=== PATIENT | female | born 1955 | race Caucasian/White ===

== ENCOUNTER 2018-09-28 20:27 | Inpatient (IN) | payer MEDICAID, OTHER ==
[~2018-09-28] VITALS: Ht 162.6 cm; Wt 79.4 kg
[~2018-09-28 20:27] MED LIST: ACLI400A2 IH; AZIT250T6 PO; BREO ELLIPTA 11 EACH IH; FEXO1TAB31 PO; PRED20TA PO; UMEC62.5 IH; VENTOLIN HFA18 GM INH
[2018-09-28] MEDS ORDERED: ALBUTEROL SULFATE 2.5 MG/3 ML NEBU. CONT NEB ONE (20:30)
[2018-09-28] MEDS ORDERED: methylPREDNISolone SOD SUCC PF 125 MG/2 ML VIAL. IV ONE (20:30)
[2018-09-28] MEDS ORDERED: IPRATROPIUM BROMIDE 0.5 MG/2.5 ML NEBU. NEB ONE (20:30)
[2018-09-28] MEDS ORDERED: MAGNESIUM SULFATE 2GM 50 ML IV ONE (20:30)
[2018-09-28 20:44] LABS: BASO # 0.1 x10^3/uL (0.0-0.2); BASO % 1 % (0-3); EOS # 0.1 x10^3/uL (0.0-0.7); EOS % 1 % (0-3); HEMATOCRIT 37.7 % (36.0-47.0); HEMOGLOBIN 12.1 g/dL (12.0-15.5); LYMPH # 1.1 x10^3/uL (1.0-4.8); LYMPH % 9 % (24-48); MEAN CORPUSCULAR HEMOGLOBIN 29 pg (25-35); MEAN CORPUSCULAR HGB CONC 32 g/dL (31-37); MEAN CORPUSCULAR VOLUME 90 fL (79-100); MONO # 1.2 x10^3/uL (0.0-1.1); MONO % 10 % (0-9); NEUT # 9.8 x10^3uL (1.8-7.7); NEUT % 79 % (31-73); PLATELET COUNT 317 x10^3/uL (140-400); RED BLOOD COUNT 4.19 x10^6/uL (3.50-5.40); RED CELL DISTRIBUTION WIDTH 13.6 % (11.5-14.5); WHITE BLOOD COUNT 12.4 x10^3/uL (4.0-11.0)
[2018-09-28 20:52] LABS: CALCIUM 9.4 mg/dL (8.5-10.1); CREATININE 0.5 mg/dL (0.6-1.0); GFR 124.2; POTASSIUM 4.6 mmol/L (3.5-5.1)
[2018-09-28 20:58] LABS: ALBUMIN 3.2 g/dL (3.4-5.0); ALBUMIN/GLOBULIN RATIO 0.9 (1.0-1.7); TOTAL BILIRUBIN 0.4 mg/dL (0.2-1.0); TOTAL PROTEIN 6.7 g/dL (6.4-8.2)
[2018-09-28 21:02] LABS: BILIRUBIN,URINE NEGATIVE (NEG); CLARITY,URINE CLEAR; COLOR,URINE YELLOW; NITRITE,URINE NEGATIVE (NEG); PH,URINE 6.5; PROTEIN,URINE NEGATIVE (NEG-TRACE)
[2018-09-28 21:02] LABS: BASE EXCESS ABG 12 mmol/L (-3-3); HCO3 ABG 42 mmol/L (21-28); PO2 ABG 65 mmHg (65-108); SAT O2 ABG 92 % (92-99)
[2018-09-28 21:08] LABS: FIO2 ABG 35; PCO2 ABG 91 mmHg (35-46)
[2018-09-28 21:08] LABS: AMORPHOUS SEDIMENT,UR PRESENT /HPF; BACTERIA,URINE 0 /HPF (0-FEW); WBC,URINE 0 /HPF (0-4)
[2018-09-28] MEDS ORDERED: MORPHINE SULFATE 2 MG/ML VIAL. IV ONE (21:30)
--- NOTE | 2018-09-28 21:42 | RAD ---
PORTABLE CHEST 1V History: Dyspnea Comparison: July 21, 2017 Findings: Single view of the chest is submitted. There is again emphysema. There is no new lobar consolidation, pleural fluid, pneumothorax. Heart size is stable. There is a round opacity of the mid right hemithorax at level of posterior seventh and eighth ribs. Impression: 1. There is no lobar consolidation. There is emphysema. 2. There is a possible nodule of the mid right hemithorax for which nonemergent CT evaluation is recommended although it is possible the findings could be due to rib margin. Electronically signed by: Demetrio Carias MD (09/28/2018 9:40 PM) [facility]
--- NOTE | 2018-09-28 22:11 | PHYS DOC ---
Past Medical History Past Medical History: Asthma, Bronchitis, CHF, COPD Past Surgical History: No Surgical History Additional Past Surgical Histo: UNKNOWN Alcohol Use: None Drug Use: None Adult General Chief Complaint Chief Complaint: DYSPNEA/RESPIRATOY DISTRESS HPI HPI Patient is a 63-year-old female who presents with complaint of shortness breath that reportedly had started earlier this morning. Patient states that symptoms have progressively gotten worse throughout the day. EMS reports that upon their arrival patient had tried to hold herself up to her BiPAP machine at home but they state that it was not moving air. They state that her blood oxygen level was in the upper 70s to low 80s on oxygen. They state that when they put her on CPAP and her percent O2, oxygen saturation came up to the upper 90s. Additional history is limited due to severity of patient's shortness of breath.[] Review of Systems Review of Systems Constitutional: Denies fever or chills [] Respiratory: Complains of cough and shortness of breath [] Cardiovascular: No additional information not addressed in HPI [] GI: Denies abdominal pain, nausea, vomiting or diarrhea [] Integument: Denies rash or skin lesions [] All other systems were reviewed and found to be within normal limits, except as documented in this note. Current Medications Current Medications Current Medications Medications (Trade) Dose Ordered Sig/Mane Start Time Stop Time Status Last Admin Dose Admin Albuterol Sulfate (Ventolin Neb Soln) 10 mg 1X ONCE 09/28/18 20:30 09/28/18 20:40 DC 09/28/18 20:50 10 MG Etomidate (Amidate) 20 mg STK-MED ONCE 09/29/18 00:10 09/29/18 00:11 DC Ipratropium [place] (Atrovent) 0.5 mg 1X ONCE 09/28/18 20:30 09/28/18 20:40 DC 09/28/18 20:50 0.5 MG Magnesium Sulfate 50 ml @ 25 mls/hr 1X ONCE 09/28/18 20:30 09/28/18 22:29 DC 09/28/18 20:43 25 MLS/HR Methylprednisolone Sodium Succinate (SOLU-Medrol 125MG VIAL) 125 mg 1X ONCE 09/28/18 20:30 09/28/18 20:40 DC 09/28/18 20:30 125 MG Morphine Sulfate (Morphine Sulfate) 2 mg 1X ONCE 09/28/18 21:30 09/28/18 21:31 DC 09/29/18 00:52 2 MG Rocuronium [place] (Zemuron) 50 mg STK-MED ONCE 09/29/18 00:10 09/29/18 00:11 DC Allergies Allergies Allergies Coded Allergies Type Severity Reaction Last Updated Verified No Known Drug Allergies 07/11/17 No Physical Exam Physical Exam Constitutional: Well developed, well nourished, in respiratory distress. [] HENT: Normocephalic, atraumatic, bilateral external ears normal, oropharynx moist, no oral exudates, nose normal. [] Eyes: PERRLA, EOMI, conjunctiva normal, no discharge. [] Neck: Normal range of motion, no tenderness, supple, no stridor. [] Cardiovascular: Regular rate and rhythm[] Lungs & Thorax: Lungs demonstrate markedly reduced breath sounds throughout with only fine end expiratory wheezes noted to auscultation [] Abdomen: Bowel sounds normal, soft, no tenderness. [] Skin: Warm, dry, no erythema, no rash. [] Extremities: No tenderness, no cyanosis, no clubbing, ROM intact, no edema. [] Neurologic: Alert and oriented X 3, no focal deficits noted. [] Current Patient Data Vital Signs Vital Signs Date Time Temp Pulse Resp B/P (MAP) Pulse Ox O2 Delivery O2 Flow Rate FiO2 09/29/18 00:05 98 Ventilator 09/29/18 00:00 78 30 129/77 (94) 09/28/18 20:30 97.6 97.6 Lab Values Laboratory Tests Test 09/28/18 20:30 09/28/18 20:47 09/28/18 21:44 White Blood Count 12.4 x10^3/uL (4.0-11.0) H Red Blood Count 4.19 x10^6/uL (3.50-5.40) Hemoglobin 12.1 g/dL (12.0-15.5) Hematocrit 37.7 % (36.0-47.0) Mean Corpuscular Volume 90 fL (79-100) Mean Corpuscular Hemoglobin 29 pg (25-35) Mean Corpuscular Hemoglobin Concent 32 g/dL (31-37) Red Cell Distribution Width 13.6 % (11.5-14.5) Platelet Count 317 x10^3/uL (140-400) Neutrophils (%) (Auto) 79 % (31-73) H Lymphocytes (%) (Auto) 9 % (24-48) L Monocytes (%) (Auto) 10 % (0-9) H Eosinophils (%) (Auto) 1 % (0-3) Basophils (%) (Auto) 1 % (0-3) Neutrophils # (Auto) 9.8 x10^3uL (1.8-7.7) H Lymphocytes # (Auto) 1.1 x10^3/uL (1.0-4.8) Monocytes # (Auto) 1.2 x10^3/uL (0.0-1.1) H Eosinophils # (Auto) 0.1 x10^3/uL (0.0-0.7) Basophils # (Auto) 0.1 x10^3/uL (0.0-0.2) D-Dimer (Bibi) 0.32 ug/mlFEU (0.00-0.50) O2 Saturation 92 % (92-99) 92 % (92-99) Arterial Blood pH 7.28 (7.35-7.45) L 7.28 (7.35-7.45) L Arterial Blood pCO2 at Patient Temp 91 mmHg (35-46) *H 88 mmHg (35-46) *H Arterial Blood pO2 at Patient Temp 65 mmHg (65-108) 65 mmHg (65-108) Arterial Blood HCO3 42 mmol/L (21-28) H 41 mmol/L (21-28) H Arterial Blood Base Excess 12 mmol/L (-3-3) H 10 mmol/L (-3-3) H FiO2 35 35 Sodium Level 144 mmol/L (136-145) Potassium Level 4.6 mmol/L (3.5-5.1) Chloride Level 99 mmol/L (98-107) Carbon Dioxide Level 43 mmol/L (21-32) H Anion Gap 2 (6-14) L Blood Urea Nitrogen 14 mg/dL (7-20) Creatinine 0.5 mg/dL (0.6-1.0) L Estimated GFR (Cockcroft-Gault) 124.2 BUN/Creatinine Ratio 28 (6-20) H Glucose Level 102 mg/dL (70-99) H Calcium Level 9.4 mg/dL (8.5-10.1) Total Bilirubin 0.4 mg/dL (0.2-1.0) Aspartate Amino Transferase (AST) 15 U/L (15-37) Alanine Aminotransferase (ALT) 22 U/L (14-59) Alkaline Phosphatase 54 U/L (46-116) Troponin I Quantitative < 0.017 ng/mL (0.000-0.055) QJ-Zmz-W-Type Natriuretic Peptide 554 pg/mL (0-124) H Total Protein 6.7 g/dL (6.4-8.2) Albumin 3.2 g/dL (3.4-5.0) L Albumin/Globulin Ratio 0.9 (1.0-1.7) L Urine Collection Type U cath Urine Color Yellow Urine Clarity Clear Urine pH 6.5 Urine Specific [place] 1.020 Urine Protein Negative mg/dL (NEG-TRACE) Urine Glucose (UA) Negative mg/dL (NEG) Urine Ketones (Stick) 15 mg/dL (NEG) Urine Blood Moderate (NEG) Urine Nitrite Negative (NEG) Urine Bilirubin Negative (NEG) Urine Urobilinogen Dipstick 1.0 mg/dL (0.2 mg/dL) Urine Leukocyte Esterase Negative (NEG) Urine RBC 11-20 /HPF (0-2) Urine WBC 0 /HPF (0-4) Urine Squamous Epithelial Cells None /LPF Urine Amorphous Sediment Present /HPF Urine Bacteria 0 /HPF (0-FEW) Urine Mucus Slight /LPF Laboratory Tests 09/28/18 20:30 Laboratory Tests 09/28/18 20:30 EKG EKG [] Interpretation Time: EKG demonstrates normal sinus rhythm with rate of 79. Radiology/Procedures Radiology/Procedures [] Impressions: PORTABLE CHEST 1V History: Dyspnea Comparison: July 21, 2017 Findings: Single view of the chest is submitted. There is again emphysema. There is no new lobar consolidation, pleural fluid, pneumothorax. Heart size is stable. There is a round opacity of the mid right hemithorax at level of posterior seventh and eighth ribs. Impression: 1. There is no lobar consolidation. There is emphysema. 2. There is a possible nodule of the mid right hemithorax for which nonemergent CT evaluation is recommended although it is possible the findings could be due to rib margin. Electronically signed by: Demetrio Carias MD (09/28/2018 9:40 PM) [facility] Course & Med Decision Making Course & Med Decision Making Pertinent Labs and Imaging studies reviewed. (See chart for details) Patient moved to room upon arrival was evaluated by your medical staff after which an IV was established and blood work drawn. Patient started on BiPAP and received a 1 hour continuous nebulizer treatment through BiPAP. Patient was also given IV Solu-Medrol as well as 2 g of mag sulfate and morphine. Patient's initial blood gas demonstrated pH of 7.28 and PCO2 of 91.2. Patient was maintained on BiPAP and was rechecked approximately an hour later which demonstrated very little change in the gas. At this point, it was decided that after discussing patient's case with Dr. Garcia, then patient would best be served with intubation. This was discussed with patient and patient in agreement. Endotracheal Intubation by me: Pre assessment performed. See preceding note for details. Pre-oxygenation performed with 100% oxygen RSI: Performed w/o complication or hypoxic events. Medications as ordered. Blade: #3 glide scope ET Tube: 7.5 cm Depth: 24 cm at the lip Intubation confirmed by colorimetric CO2, equal breath sounds, quiet over the stomach. A total of 55 minutes of critical care time was spent on this patient exclusive of separately billable procedures and included direct [id number] time with this patient, ordering and reviewing of laboratory and radiologic studies, discussion of the patient's case with family and with consultants, and finally on documentation of this patient's medical record. Dragon Disclaimer Dragon Disclaimer This electronic medical record was generated, in whole or in part, using a voice recognition dictation system. Departure Departure Impression: Primary Impression: Acute hypercapnic respiratory failure Disposition: ADMITTED INPATIENT Admitting Physician: Juana Woods Condition: IMPROVED Referrals: UNKNOWN PCP NAME (PCP) JERRI EASON Jr. DO September 28, 2018 22:11
[2018-09-28 23:37] LABS: BASE EXCESS ABG 10 mmol/L (-3-3); HCO3 ABG 41 mmol/L (21-28); PO2 ABG 65 mmHg (65-108); SAT O2 ABG 92 % (92-99)
[2018-09-28 23:41] LABS: FIO2 ABG 35; PCO2 ABG 88 mmHg (35-46)
[2018-09-29] VITALS (27 sets, daily range): BP systolic 75–128; BP diastolic 47–72
[2018-09-29] MEDS ORDERED: ROCURONIUM 50 MG/5 ML VIAL. ONE (00:10)
[2018-09-29] MEDS ORDERED: ETOMIDATE 20 MG/10 ML VIAL. IV ONE (00:10)
[2018-09-29] MEDS ORDERED: PROPOFOL 100 ML IV PRN (00:15)
[2018-09-29] MEDS ORDERED: MIDAZOLAM HCL/PF 2 MG/2 ML VIAL. IV PRN (00:15)
--- NOTE | 2018-09-29 00:45 | RAD ---
AP chest. HISTORY: Post intubation AP view was taken of the chest. Endotracheal tube is in good position. There is no pleural effusion. Heart is normal in size. There are interstitial changes which appear chronic possibly underlying fibrosis or chronic interstitial lung disease. No definite confluent pneumonia noted. IMPRESSION: 1. Endotracheal tube in good position.. 2. No other change. Electronically signed by: Ricco Loyd MD (09/29/2018 12:42 AM) [facility]
[2018-09-29] MEDS ORDERED: PROPOFOL 50 ML IV ONE ×2 (00:49→01:00)
[2018-09-29] MEDS: IV NORMAL SALINE 1000ML BAG 1,000 ML IV SCH ×3 (01:57→15:45)
[2018-09-29 02:51] LABS: BASE EXCESS ABG 10 mmol/L (-3-3); HCO3 ABG 38 mmol/L (21-28); PO2 ABG 59 mmHg (65-108); SAT O2 ABG 90 % (92-99)
[2018-09-29 02:52] LABS: FIO2 ABG 30; PCO2 ABG 69 mmHg (35-46)
--- NOTE | 2018-09-29 04:00 | NUR ---
Pt was admitted on vent for resp failure. No family present and patient is sedated on the vent with Diprivan. VSS. Maia and OG both patent.
--- NOTE | 2018-09-29 06:21 | EKG ---
[facility] [address] [place] [address] Test Date: 2018-09-28 Test Time: 20:33:25 Pat Name: BENITO MARQUEZ Department: Room: Gender: F Health Policy Analyst: : 1955 Requested By: JERRI EASON Order Number: [id number] Reading MD: Measurements Intervals [place] Rate: 79 P: 59 RI: 136 QRS: 65 QRSD: 72 T: 72 QT: 368 QTc: 423 Interpretive Statements SINUS RHYTHM OTHERWISE NORMAL ECG RI6.01 Unconfirmed report No previous ECG available for comparison
--- NOTE | 2018-09-29 07:41 | RAD ---
EDDIE, 09/29/2018: HISTORY: Check gastric tube placement A supine view of the upper abdomen demonstrates an NG tube extending into the antral region of the stomach. The gas pattern in the upper abdomen is unremarkable. The lung bases are clear. IMPRESSION: The NG tube extends into the distal aspect of the stomach. Electronically signed by: Mauro Spencer MD (09/29/2018 7:38 AM) [facility]
[2018-09-29 07:58] LABS: BASE EXCESS ABG 13 mmol/L (-3-3); HCO3 ABG 39 mmol/L (21-28); PCO2 ABG 55 mmHg (35-46); PO2 ABG 53 mmHg (65-108); SAT O2 ABG 90 % (92-99)
[2018-09-29 08:04] LABS: FIO2 ABG 30
[2018-09-29] MEDS: IPRATRPIUM/ALBUTEROL 0.5/2.5MG 3 ML NEBU. NEB SCH ×4 (08:30→19:21)
--- NOTE | 2018-09-29 10:52 | PDOC1 ---
History and Physical Date of Admission: Date of Admission DATE: 09/29/18 TIME: 10:49 Chief Complaint: Problems: (1) Acute on chronic respiratory failure (2) Acute hypercapnic respiratory failure (3) COPD (chronic obstructive pulmonary disease) Chief Complain: Shortness of breath hypoxia History of Present Illness: HPI: This is a middle-aged white female who has COPD presented with restrictive failure Her family called ambulance she was hypoxic They placed her on BiPAP that seemed to help but when she got to the ER she had to be intubated She's now on the intensive care unit on the ventilator assist-control/18/400/40% Past Medical/Surgical History: PMH/PSH: Past Medical History: Asthma, Bronchitis, CHF, COPD Past Surgical History: No Surgical History Additional Past Surgical Histo: UNKNOWN A Allergies: Allergies: Coded Allergies: No Known Drug Allergies (Unverified , 07/11/17) Family History: Family History: Hypertension Social History: Social Hisoty: I think she quit smoking or drinking or drugs Current Medications: Current Medications Current Medications Ipratropium [place] (Atrovent) 0.5 mg 1X ONCE NEB Last administered on at 20:50; Start 09/28/18 at 20:30; Stop 09/28/18 at 20:40; Status DC Methylprednisolone Sodium Succinate (SOLU-Medrol 125MG VIAL) 125 mg 1X ONCE IV Last administered on 09/28/18at 20:30; Start 09/28/18 at 20:30; Stop 09/28/18 at 20:40; Status DC Albuterol Sulfate (Ventolin Neb Soln) 10 mg 1X ONCE CONT NEB Last administered on 09/28/18at 20:50; Start 09/28/18 at 20:30; Stop 09/28/18 at 20:40; Status DC Magnesium Sulfate 50 ml @ 25 mls/hr 1X ONCE IV Last administered on 09/28/18at 20:43; Start 09/28/18 at 20:30; Stop 09/28/18 at 22:29; Status DC Morphine Sulfate (Morphine Sulfate) 2 mg 1X ONCE IV Last administered on 09/29/18at 00:52; Start 09/28/18 at 21:30; Stop 09/28/18 at 21:31; Status DC Etomidate (Amidate) 20 mg STK-MED ONCE IV ; Start 09/29/18 at 00:10; Stop 09/29/18 at 00:11; Status DC Rocuronium [place] (Zemuron) 50 mg STK-MED ONCE .ROUTE ; Start 09/29/18 at 00:10; Stop 09/29/18 at 00:11; Status DC Sodium Chloride 1,000 ml @ 125 mls/hr Q8H IV Last administered on 09/29/18at 07:33; Start 09/29/18 at 00:30; Stop 09/30/18 at 00:29 Albuterol/ Ipratropium (Duoneb) 3 ml RTQID NEB ; Start 09/29/18 at 08:00; Stop 09/30/18 at 07:59 Propofol 100 ml @ 0 mls/hr CONT PRN IV SEE PROTOCOL Last administered on 09/29/18at 02:01; Start 09/29/18 at 00:15 Midazolam HCl (Versed) 2 mg PRN Q30MIN PRN IV SEE COMMENTS.; Start 09/29/18 at 00:15 Propofol 50 ml @ 0.885 mls/ hr 1X ONCE IV Last administered on 09/29/18at 00:54; Start 09/29/18 at 01:00; Stop 10/01/18 at 09:06 Propofol 50 ml @ As Directed STK-MED ONCE IV ; Start 09/29/18 at 00:49; Stop 09/29/18 at 00:50; Status DC Active Scripts Active Reported Incruse Ellipta (Umeclidinium [place]) 62.5 Mcg Blst.w.dev 62.5 Mcg IH DAILY Breo Ellipta 100-25 Mcg Inh (Fluticasone/Vilanterol) 1 Each Aer.pow.ba 1 Puff IH DAILY Ventolin Hfa Inhaler (Albuterol Sulfate) 18 Gm Hfa.aer.ad 2 Puff INH Q4HRS Azithromycin Tablet (Azithromycin) 250 Mg Tablet 250 Mg PO DAILY Tudorza Pressair (Aclidinium [place]) 400 Mcg Aer.pow.ba 400 Mcg IH DAILY Prednisone 20 Mg Tablet 1 Tab PO DAILY Rosalia-D 24 Hour Tablet (Fexofenadine/Pseudoephedrine) 1 Each Tab.er.24h 1 Tab PO DAILY ROS: Review of Systems Unable to obtain Physical Exam: Vital Signs: Vital Signs Date Time Temp Pulse Resp B/P (MAP) Pulse Ox O2 Delivery O2 Flow Rate FiO2 09/29/18 08:00 Mechanical Ventilator 09/29/18 07:39 92 09/29/18 07:00 78 18 96/53 (67) 09/29/18 04:00 98.0 98.0 Physcial Exam: GEN.: Intubated and sedated HEENT: Head is normocephalic, atraumatic NECK: Supple, no JVD LUNGS: Course breath sounds HEART: RRR, S1, S2 present. Peripheral pulses intact ABDOMEN: Soft, nontender. Positive bowel sounds no organomegaly EXTREMITIES: Without any cyanosis, clubbing, or edema. Pedal pulses intact NEUROLOGIC: Sedated PSYCHIATRIC: Unable to assess SKIN: No ulcerations or rashes VASCULAR: Good capillary refill Labs: Labs: Laboratory Tests Test 09/28/18 20:30 09/28/18 20:47 09/28/18 21:44 09/29/18 01:56 White Blood Count 12.4 x10^3/uL (4.0-11.0) Red Blood Count 4.19 x10^6/uL (3.50-5.40) Hemoglobin 12.1 g/dL (12.0-15.5) Hematocrit 37.7 % (36.0-47.0) Mean Corpuscular Volume 90 fL (79-100) Mean Corpuscular Hemoglobin 29 pg (25-35) Mean Corpuscular Hemoglobin Concent 32 g/dL (31-37) Red Cell Distribution Width 13.6 % (11.5-14.5) Platelet Count 317 x10^3/uL (140-400) Neutrophils (%) (Auto) 79 % (31-73) Lymphocytes (%) (Auto) 9 % (24-48) Monocytes (%) (Auto) 10 % (0-9) Eosinophils (%) (Auto) 1 % (0-3) Basophils (%) (Auto) 1 % (0-3) Neutrophils # (Auto) 9.8 x10^3uL (1.8-7.7) Lymphocytes # (Auto) 1.1 x10^3/uL (1.0-4.8) Monocytes # (Auto) 1.2 x10^3/uL (0.0-1.1) Eosinophils # (Auto) 0.1 x10^3/uL (0.0-0.7) Basophils # (Auto) 0.1 x10^3/uL (0.0-0.2) D-Dimer (Bibi) 0.32 ug/mlFEU (0.00-0.50) O2 Saturation 92 % (92-99) 92 % (92-99) 90 % (92-99) Arterial Blood pH 7.28 (7.35-7.45) 7.28 (7.35-7.45) 7.36 (7.35-7.45) Arterial Blood pCO2 at Patient Temp 91 mmHg (35-46) 88 mmHg (35-46) 69 mmHg (35-46) Arterial Blood pO2 at Patient Temp 65 mmHg (65-108) 65 mmHg (65-108) 59 mmHg (65-108) Arterial Blood HCO3 42 mmol/L (21-28) 41 mmol/L (21-28) 38 mmol/L (21-28) Arterial Blood Base Excess 12 mmol/L (-3-3) 10 mmol/L (-3-3) 10 mmol/L (-3-3) FiO2 35 35 30 Sodium Level 144 mmol/L (136-145) Potassium Level 4.6 mmol/L (3.5-5.1) Chloride Level 99 mmol/L (98-107) Carbon Dioxide Level 43 mmol/L (21-32) Anion Gap 2 (6-14) Blood Urea Nitrogen 14 mg/dL (7-20) Creatinine 0.5 mg/dL (0.6-1.0) Estimated GFR (Cockcroft-Gault) 124.2 BUN/Creatinine Ratio 28 (6-20) Glucose Level 102 mg/dL (70-99) Calcium Level 9.4 mg/dL (8.5-10.1) Total Bilirubin 0.4 mg/dL (0.2-1.0) Aspartate Amino Transf (AST/SGOT) 15 U/L (15-37) Alanine Aminotransferase (ALT/SGPT) 22 U/L (14-59) Alkaline Phosphatase 54 U/L (46-116) Troponin I Quantitative < 0.017 ng/mL (0.000-0.055) BC-Lgo-H-Type Natriuretic Peptide 554 pg/mL (0-124) Total Protein 6.7 g/dL (6.4-8.2) Albumin 3.2 g/dL (3.4-5.0) Albumin/Globulin Ratio 0.9 (1.0-1.7) Urine Collection Type U cath Urine Color Yellow Urine Clarity Clear Urine pH 6.5 Urine Specific [place] 1.020 Urine Protein Negative mg/dL (NEG-TRACE) Urine Glucose (UA) Negative mg/dL (NEG) Urine Ketones (Stick) 15 mg/dL (NEG) Urine Blood Moderate (NEG) Urine Nitrite Negative (NEG) Urine Bilirubin Negative (NEG) Urine Urobilinogen Dipstick 1.0 mg/dL (0.2 mg/dL) Urine Leukocyte Esterase Negative (NEG) Urine RBC 11-20 /HPF (0-2) Urine WBC 0 /HPF (0-4) Urine Squamous Epithelial Cells None /LPF Urine Amorphous Sediment Present /HPF Urine Bacteria 0 /HPF (0-FEW) Urine Mucus Slight /LPF Test 09/29/18 03:00 09/29/18 06:00 09/29/18 07:50 Troponin I Quantitative < 0.017 ng/mL (0.000-0.055) < 0.017 ng/mL (0.000-0.055) O2 Saturation 90 % (92-99) Arterial Blood pH 7.47 (7.35-7.45) Arterial Blood pCO2 at Patient Temp 55 mmHg (35-46) Arterial Blood pO2 at Patient Temp 53 mmHg (65-108) Arterial Blood HCO3 39 mmol/L (21-28) Arterial Blood Base Excess 13 mmol/L (-3-3) FiO2 30 Laboratory Tests Test 09/28/18 20:30 09/28/18 20:47 09/28/18 21:44 09/29/18 01:56 White Blood Count 12.4 x10^3/uL (4.0-11.0) Red Blood Count 4.19 x10^6/uL (3.50-5.40) Hemoglobin 12.1 g/dL (12.0-15.5) Hematocrit 37.7 % (36.0-47.0) Mean Corpuscular Volume 90 fL (79-100) Mean Corpuscular Hemoglobin 29 pg (25-35) Mean Corpuscular Hemoglobin Concent 32 g/dL (31-37) Red Cell Distribution Width 13.6 % (11.5-14.5) Platelet Count 317 x10^3/uL (140-400) Neutrophils (%) (Auto) 79 % (31-73) Lymphocytes (%) (Auto) 9 % (24-48) Monocytes (%) (Auto) 10 % (0-9) Eosinophils (%) (Auto) 1 % (0-3) Basophils (%) (Auto) 1 % (0-3) Neutrophils # (Auto) 9.8 x10^3uL (1.8-7.7) Lymphocytes # (Auto) 1.1 x10^3/uL (1.0-4.8) Monocytes # (Auto) 1.2 x10^3/uL (0.0-1.1) Eosinophils # (Auto) 0.1 x10^3/uL (0.0-0.7) Basophils # (Auto) 0.1 x10^3/uL (0.0-0.2) D-Dimer (Bibi) 0.32 ug/mlFEU (0.00-0.50) O2 Saturation 92 % (92-99) 92 % (92-99) 90 % (92-99) Arterial Blood pH 7.28 (7.35-7.45) 7.28 (7.35-7.45) 7.36 (7.35-7.45) Arterial Blood pCO2 at Patient Temp 91 mmHg (35-46) 88 mmHg (35-46) 69 mmHg (35-46) Arterial Blood pO2 at Patient Temp 65 mmHg (65-108) 65 mmHg (65-108) 59 mmHg (65-108) Arterial Blood HCO3 42 mmol/L (21-28) 41 mmol/L (21-28) 38 mmol/L (21-28) Arterial Blood Base Excess 12 mmol/L (-3-3) 10 mmol/L (-3-3) 10 mmol/L (-3-3) FiO2 35 35 30 Sodium Level 144 mmol/L (136-145) Potassium Level 4.6 mmol/L (3.5-5.1) Chloride Level 99 mmol/L (98-107) Carbon Dioxide Level 43 mmol/L (21-32) Anion Gap 2 (6-14) Blood Urea Nitrogen 14 mg/dL (7-20) Creatinine 0.5 mg/dL (0.6-1.0) Estimated GFR (Cockcroft-Gault) 124.2 BUN/Creatinine Ratio 28 (6-20) Glucose Level 102 mg/dL (70-99) Calcium Level 9.4 mg/dL (8.5-10.1) Total Bilirubin 0.4 mg/dL (0.2-1.0) Aspartate Amino Transf (AST/SGOT) 15 U/L (15-37) Alanine Aminotransferase (ALT/SGPT) 22 U/L (14-59) Alkaline Phosphatase 54 U/L (46-116) Troponin I Quantitative < 0.017 ng/mL (0.000-0.055) AX-Iqc-X-Type Natriuretic Peptide 554 pg/mL (0-124) Total Protein 6.7 g/dL (6.4-8.2) Albumin 3.2 g/dL (3.4-5.0) Albumin/Globulin Ratio 0.9 (1.0-1.7) Urine Collection Type U cath Urine Color Yellow Urine Clarity Clear Urine pH 6.5 Urine Specific [place] 1.020 Urine Protein Negative mg/dL (NEG-TRACE) Urine Glucose (UA) Negative mg/dL (NEG) Urine Ketones (Stick) 15 mg/dL (NEG) Urine Blood Moderate (NEG) Urine Nitrite Negative (NEG) Urine Bilirubin Negative (NEG) Urine Urobilinogen Dipstick 1.0 mg/dL (0.2 mg/dL) Urine Leukocyte Esterase Negative (NEG) Urine RBC 11-20 /HPF (0-2) Urine WBC 0 /HPF (0-4) Urine Squamous Epithelial Cells None /LPF Urine Amorphous Sediment Present /HPF Urine Bacteria 0 /HPF (0-FEW) Urine Mucus Slight /LPF Test 09/29/18 03:00 09/29/18 06:00 09/29/18 07:50 Troponin I Quantitative < 0.017 ng/mL (0.000-0.055) < 0.017 ng/mL (0.000-0.055) O2 Saturation 90 % (92-99) Arterial Blood pH 7.47 (7.35-7.45) Arterial Blood pCO2 at Patient Temp 55 mmHg (35-46) Arterial Blood pO2 at Patient Temp 53 mmHg (65-108) Arterial Blood HCO3 39 mmol/L (21-28) Arterial Blood Base Excess 13 mmol/L (-3-3) FiO2 30 Images: Images 1. There is no lobar consolidation. There is emphysema. 2. There is a possible nodule of the mid right hemithorax for which nonemergent CT evaluation is recommended although it is possible the findings could be due to rib margin. Assessment/Plan Assessment/Plan Phone and respiratory failure probably multifactorial including pneumonia and COPD perhaps even a little heart failure Plan She's been intubated Consult pulmonary IV Rocephin Duo nebs DVT prophylaxis Full code Frequent labs Home meds if possible We'll consider NG feeds Prognosis guarded Total time 32 minutes JASSON LONG III DO September 29, 2018 10:52
[2018-09-29] MEDS ORDERED: fentaNYL PF VIAL 100 MCG/2 ML VIAL IM ONE (11:45)
[2018-09-29] MEDS: ENOXAPARIN 40 MG/0.4 ML SYRINGE. SQ SCH (11:53)
[2018-09-29] MEDS: FAMOTIDINE 20 MG/2 ML VIAL IVP SCH ×2 (11:53→21:27)
[2018-09-29] MEDS: cefTRIAXone IV Push 1 GM VIAL. IVP SCH (11:55)
[2018-09-29] MEDS: fentaNYL 50MCG/HR PATCH 1 PATCH PATCH.TD72 TD SCH (11:58)
[2018-09-29] MEDS ORDERED: fentaNYL PF VIAL 100 MCG/2 ML VIAL IV ONE (12:00)
--- NOTE | 2018-09-29 13:09 | PDOC ---
PULMONARY PROGRESS NOTES Vitals Vital Signs Date Time Temp Pulse Resp B/P (MAP) Pulse Ox O2 Delivery O2 Flow Rate FiO2 09/29/18 12:00 Mechanical Ventilator 09/29/18 12:00 98.9 80 18 95/57 (70) 96 98.9 General: Alert Lungs: Clear, Other Cardiovascular: S1, S2 Abdomen: Soft Extremities: No Edema Labs Laboratory Tests Test 09/28/18 20:30 09/28/18 20:47 09/28/18 21:44 09/29/18 01:56 White Blood Count 12.4 x10^3/uL (4.0-11.0) Red Blood Count 4.19 x10^6/uL (3.50-5.40) Hemoglobin 12.1 g/dL (12.0-15.5) Hematocrit 37.7 % (36.0-47.0) Mean Corpuscular Volume 90 fL (79-100) Mean Corpuscular Hemoglobin 29 pg (25-35) Mean Corpuscular Hemoglobin Concent 32 g/dL (31-37) Red Cell Distribution Width 13.6 % (11.5-14.5) Platelet Count 317 x10^3/uL (140-400) Neutrophils (%) (Auto) 79 % (31-73) Lymphocytes (%) (Auto) 9 % (24-48) Monocytes (%) (Auto) 10 % (0-9) Eosinophils (%) (Auto) 1 % (0-3) Basophils (%) (Auto) 1 % (0-3) Neutrophils # (Auto) 9.8 x10^3uL (1.8-7.7) Lymphocytes # (Auto) 1.1 x10^3/uL (1.0-4.8) Monocytes # (Auto) 1.2 x10^3/uL (0.0-1.1) Eosinophils # (Auto) 0.1 x10^3/uL (0.0-0.7) Basophils # (Auto) 0.1 x10^3/uL (0.0-0.2) D-Dimer (Bibi) 0.32 ug/mlFEU (0.00-0.50) O2 Saturation 92 % (92-99) 92 % (92-99) 90 % (92-99) Arterial Blood pH 7.28 (7.35-7.45) 7.28 (7.35-7.45) 7.36 (7.35-7.45) Arterial Blood pCO2 at Patient Temp 91 mmHg (35-46) 88 mmHg (35-46) 69 mmHg (35-46) Arterial Blood pO2 at Patient Temp 65 mmHg (65-108) 65 mmHg (65-108) 59 mmHg (65-108) Arterial Blood HCO3 42 mmol/L (21-28) 41 mmol/L (21-28) 38 mmol/L (21-28) Arterial Blood Base Excess 12 mmol/L (-3-3) 10 mmol/L (-3-3) 10 mmol/L (-3-3) FiO2 35 35 30 Sodium Level 144 mmol/L (136-145) Potassium Level 4.6 mmol/L (3.5-5.1) Chloride Level 99 mmol/L (98-107) Carbon Dioxide Level 43 mmol/L (21-32) Anion Gap 2 (6-14) Blood Urea Nitrogen 14 mg/dL (7-20) Creatinine 0.5 mg/dL (0.6-1.0) Estimated GFR (Cockcroft-Gault) 124.2 BUN/Creatinine Ratio 28 (6-20) Glucose Level 102 mg/dL (70-99) Calcium Level 9.4 mg/dL (8.5-10.1) Total Bilirubin 0.4 mg/dL (0.2-1.0) Aspartate Amino Transf (AST/SGOT) 15 U/L (15-37) Alanine Aminotransferase (ALT/SGPT) 22 U/L (14-59) Alkaline Phosphatase 54 U/L (46-116) Troponin I Quantitative < 0.017 ng/mL (0.000-0.055) UN-Opl-B-Type Natriuretic Peptide 554 pg/mL (0-124) Total Protein 6.7 g/dL (6.4-8.2) Albumin 3.2 g/dL (3.4-5.0) Albumin/Globulin Ratio 0.9 (1.0-1.7) Urine Collection Type U cath Urine Color Yellow Urine Clarity Clear Urine pH 6.5 Urine Specific [place] 1.020 Urine Protein Negative mg/dL (NEG-TRACE) Urine Glucose (UA) Negative mg/dL (NEG) Urine Ketones (Stick) 15 mg/dL (NEG) Urine Blood Moderate (NEG) Urine Nitrite Negative (NEG) Urine Bilirubin Negative (NEG) Urine Urobilinogen Dipstick 1.0 mg/dL (0.2 mg/dL) Urine Leukocyte Esterase Negative (NEG) Urine RBC 11-20 /HPF (0-2) Urine WBC 0 /HPF (0-4) Urine Squamous Epithelial Cells None /LPF Urine Amorphous Sediment Present /HPF Urine Bacteria 0 /HPF (0-FEW) Urine Mucus Slight /LPF Test 09/29/18 03:00 09/29/18 06:00 09/29/18 07:50 Troponin I Quantitative < 0.017 ng/mL (0.000-0.055) < 0.017 ng/mL (0.000-0.055) O2 Saturation 90 % (92-99) Arterial Blood pH 7.47 (7.35-7.45) Arterial Blood pCO2 at Patient Temp 55 mmHg (35-46) Arterial Blood pO2 at Patient Temp 53 mmHg (65-108) Arterial Blood HCO3 39 mmol/L (21-28) Arterial Blood Base Excess 13 mmol/L (-3-3) FiO2 30 Laboratory Tests Test 09/28/18 20:30 09/28/18 20:47 09/28/18 21:44 09/29/18 01:56 White Blood Count 12.4 x10^3/uL (4.0-11.0) Red Blood Count 4.19 x10^6/uL (3.50-5.40) Hemoglobin 12.1 g/dL (12.0-15.5) Hematocrit 37.7 % (36.0-47.0) Mean Corpuscular Volume 90 fL (79-100) Mean Corpuscular Hemoglobin 29 pg (25-35) Mean Corpuscular Hemoglobin Concent 32 g/dL (31-37) Red Cell Distribution Width 13.6 % (11.5-14.5) Platelet Count 317 x10^3/uL (140-400) Neutrophils (%) (Auto) 79 % (31-73) Lymphocytes (%) (Auto) 9 % (24-48) Monocytes (%) (Auto) 10 % (0-9) Eosinophils (%) (Auto) 1 % (0-3) Basophils (%) (Auto) 1 % (0-3) Neutrophils # (Auto) 9.8 x10^3uL (1.8-7.7) Lymphocytes # (Auto) 1.1 x10^3/uL (1.0-4.8) Monocytes # (Auto) 1.2 x10^3/uL (0.0-1.1) Eosinophils # (Auto) 0.1 x10^3/uL (0.0-0.7) Basophils # (Auto) 0.1 x10^3/uL (0.0-0.2) D-Dimer (Bibi) 0.32 ug/mlFEU (0.00-0.50) O2 Saturation 92 % (92-99) 92 % (92-99) 90 % (92-99) Arterial Blood pH 7.28 (7.35-7.45) 7.28 (7.35-7.45) 7.36 (7.35-7.45) Arterial Blood pCO2 at Patient Temp 91 mmHg (35-46) 88 mmHg (35-46) 69 mmHg (35-46) Arterial Blood pO2 at Patient Temp 65 mmHg (65-108) 65 mmHg (65-108) 59 mmHg (65-108) Arterial Blood HCO3 42 mmol/L (21-28) 41 mmol/L (21-28) 38 mmol/L (21-28) Arterial Blood Base Excess 12 mmol/L (-3-3) 10 mmol/L (-3-3) 10 mmol/L (-3-3) FiO2 35 35 30 Sodium Level 144 mmol/L (136-145) Potassium Level 4.6 mmol/L (3.5-5.1) Chloride Level 99 mmol/L (98-107) Carbon Dioxide Level 43 mmol/L (21-32) Anion Gap 2 (6-14) Blood Urea Nitrogen 14 mg/dL (7-20) Creatinine 0.5 mg/dL (0.6-1.0) Estimated GFR (Cockcroft-Gault) 124.2 BUN/Creatinine Ratio 28 (6-20) Glucose Level 102 mg/dL (70-99) Calcium Level 9.4 mg/dL (8.5-10.1) Total Bilirubin 0.4 mg/dL (0.2-1.0) Aspartate Amino Transf (AST/SGOT) 15 U/L (15-37) Alanine Aminotransferase (ALT/SGPT) 22 U/L (14-59) Alkaline Phosphatase 54 U/L (46-116) Troponin I Quantitative < 0.017 ng/mL (0.000-0.055) VW-Upz-W-Type Natriuretic Peptide 554 pg/mL (0-124) Total Protein 6.7 g/dL (6.4-8.2) Albumin 3.2 g/dL (3.4-5.0) Albumin/Globulin Ratio 0.9 (1.0-1.7) Urine Collection Type U cath Urine Color Yellow Urine Clarity Clear Urine pH 6.5 Urine Specific [place] 1.020 Urine Protein Negative mg/dL (NEG-TRACE) Urine Glucose (UA) Negative mg/dL (NEG) Urine Ketones (Stick) 15 mg/dL (NEG) Urine Blood Moderate (NEG) Urine Nitrite Negative (NEG) Urine Bilirubin Negative (NEG) Urine Urobilinogen Dipstick 1.0 mg/dL (0.2 mg/dL) Urine Leukocyte Esterase Negative (NEG) Urine RBC 11-20 /HPF (0-2) Urine WBC 0 /HPF (0-4) Urine Squamous Epithelial Cells None /LPF Urine Amorphous Sediment Present /HPF Urine Bacteria 0 /HPF (0-FEW) Urine Mucus Slight /LPF Test 09/29/18 03:00 09/29/18 06:00 09/29/18 07:50 Troponin I Quantitative < 0.017 ng/mL (0.000-0.055) < 0.017 ng/mL (0.000-0.055) O2 Saturation 90 % (92-99) Arterial Blood pH 7.47 (7.35-7.45) Arterial Blood pCO2 at Patient Temp 55 mmHg (35-46) Arterial Blood pO2 at Patient Temp 53 mmHg (65-108) Arterial Blood HCO3 39 mmol/L (21-28) Arterial Blood Base Excess 13 mmol/L (-3-3) FiO2 30 Medications Active Scripts Medications Dose Route/Sig Max Daily Dose Days Date Category Incruse Ellipta (Umeclidinium [place]) 62.5 Mcg Blst.w.dev 62.5 Mcg IH DAILY 07/11/17 Reported Breo Ellipta 100-25 Mcg Inh (Fluticasone/Vilanterol) 1 Each Aer.pow.ba 1 Puff IH DAILY 07/11/17 Reported Ventolin Hfa Inhaler (Albuterol Sulfate) 18 Gm Hfa.aer.ad 2 Puff INH Q4HRS 07/11/17 Reported Azithromycin Tablet (Azithromycin) 250 Mg Tablet 250 Mg PO DAILY 07/11/17 Reported Tudorza Pressair (Aclidinium [place]) 400 Mcg Aer.pow.ba 400 Mcg IH DAILY 07/11/17 Reported Prednisone 20 Mg Tablet 1 Tab PO DAILY 07/11/17 Reported Rosalia-D 24 Hour Tablet (Fexofenadine/Pseudoephedrine) 1 Each Tab.er.24h 1 Tab PO DAILY 07/11/17 Reported Impression . FULL NOTE DICTATED A/C REF FAILURE AECOPD POSSIBLE ILD ANDREW BLACKWOOD MD September 29, 2018 13:09
[2018-09-29] MEDS: DOXYCYCLINE HYCLATE 100 MG in IV DEXTROSE 5% 100ML 100 ML IV SCH (13:19)
[2018-09-29 14:56] LABS: BASE EXCESS ABG 10 mmol/L (-3-3); HCO3 ABG 37 mmol/L (21-28); PO2 ABG 89 mmHg (65-108); SAT O2 ABG 96 % (92-99)
[2018-09-29 15:00] LABS: PCO2 ABG 65 mmHg (35-46)
[2018-09-29 15:01] LABS: FIO2 ABG 40 t tube
[2018-09-29] MEDS ORDERED: IV NORMAL SALINE 500ML BAG 500 ML IV PRN (15:15)
[2018-09-29] MEDS ORDERED: ATROPINE 0.5 MG/5 ML DISP.SYRINGE. IV PRN (15:15)
[2018-09-29] MEDS: DEXMEDETOMIDINE 200 MCG in IV NORMAL SALINE 50ML 48 ML IV PRN (17:25)
[2018-09-29] MEDS: methylPREDNISolone SOD SUCC PF 125 MG/2 ML VIAL. IV SCH (21:27)
--- NOTE | 2018-09-29 22:53 | CONS ---
DATE OF CONSULTATION: 09/29/2018 ATTENDING PHYSICIAN: Dr. Garcia. REASON FOR CONSULTATION: The patient seen in pulmonary consultation at the request of Dr. Garcia for acute on chronic hypercapnic respiratory failure. HISTORY OF PRESENT ILLNESS: The patient is a 63-year-old with COPD who was last admitted a year ago with similar situation. She presented to the Emergency Room and initially placed on BiPAP. She failed. The Emergency physician called me last evening. We discussed the case. It was felt that she would be better managed with intubation. The patient was intubated. Initial arterial blood gas revealed a pH of 7.28, PaCO2 of 91 and PaO2 of 65. Repeat arterial blood gas this morning revealed a pH of 7.47, PaCO2 of 55 and PaO2 of 53 with bicarb of 39. The patient is currently awake, alert, following commands, on mechanical ventilation. She nods yes to wanting the ET tube removed. PAST MEDICAL HISTORY: Otherwise remarkable for chronic hypercapnic respiratory failure and COPD. PAST SURGICAL HISTORY: None. ALLERGIES: None. FAMILY HISTORY: No family history related to the lungs. SOCIAL HISTORY: She still smokes. REVIEW OF SYSTEMS: Unobtainable secondary to the patient being on mechanical ventilation. PHYSICAL EXAMINATION: VITAL SIGNS: Stable. O2 saturation was greater than 92%, currently on AC mode, 40%. HEENT: Eyes, the sclerae were nonicteric. NECK: Jugular venous distention was not elevated. No lymphadenopathy. CHEST: Full expansion. LUNGS: Poor airway flow with no wheezes. CARDIOVASCULAR: Regular rate and rhythm with S1, S2, no S3. ABDOMEN: Soft, nontender and nondistended. EXTREMITIES: No clubbing, cyanosis or pitting edema. NEUROLOGIC: The patient was awake, alert and following commands. A detailed neuro exam was not performed. LABORATORY DATA: Reviewed as indicated above. White count was 12.4. D-dimer was not elevated. Electrolytes were noted. BUN was 14 and creatinine was 0.5. IMPRESSION: 1. Acute on chronic hypoxemic hypercapnic respiratory failure. 2. Acute exacerbation of chronic obstructive pulmonary disease. 3. Abnormal x-ray revealing possible interstitial lung disease. 4. Tobacco dependence. 5. Acute nonspecific bronchitis. PLAN: 1. We will treat the acute nonspecific bronchitis with steroids and antibiotics. 2. CT chest. 3. T-tube trial and possibly extubate today. 4. The patient will be once again instructed on the importance of avoiding tobacco use. 5. DVT and GI prophylaxis. 6. Nebulized treatments. I do appreciate the privilege in sharing in the patient's care. Total cumulative critical care time of 45 minutes. ANDREW BLACKWOOD MD DR: AYDEE/amrik JOB#: [id number] / [id number]
[2018-09-30] VITALS (24 sets, daily range): BP systolic 97–141; BP diastolic 49–71
[2018-09-30] MEDS: DEXMEDETOMIDINE 200 MCG in IV NORMAL SALINE 50ML 48 ML IV PRN (00:44)
[2018-09-30] MEDS: DOXYCYCLINE HYCLATE 100 MG in IV DEXTROSE 5% 100ML 100 ML IV SCH ×2 (02:24→12:39)
[2018-09-30 05:08] LABS: BASO % 0 % (0-3); EOS % 0 % (0-3); HEMATOCRIT 34.4 % (36.0-47.0); LYMPH # 0.6 x10^3/uL (1.0-4.8); LYMPH % 6 % (24-48); MEAN CORPUSCULAR HEMOGLOBIN 29 pg (25-35); MEAN CORPUSCULAR HGB CONC 32 g/dL (31-37); MEAN CORPUSCULAR VOLUME 90 fL (79-100); MONO # 0.1 x10^3/uL (0.0-1.1); MONO % 1 % (0-9); NEUT # 9.7 x10^3uL (1.8-7.7); NEUT % 93 % (31-73); PLATELET COUNT 283 x10^3/uL (140-400); RED BLOOD COUNT 3.82 x10^6/uL (3.50-5.40); WHITE BLOOD COUNT 10.4 x10^3/uL (4.0-11.0)
[2018-09-30 05:59] LABS: ALBUMIN 2.8 g/dL (3.4-5.0); ALBUMIN/GLOBULIN RATIO 0.9 (1.0-1.7); CALCIUM 9.3 mg/dL (8.5-10.1); CREATININE 0.7 mg/dL (0.6-1.0); GFR 84.2; TOTAL BILIRUBIN 0.3 mg/dL (0.2-1.0)
--- NOTE | 2018-09-30 06:13 | PDOC ---
PULMONARY PROGRESS NOTES Subjective on vent, on precedex, mod secretion, follows commands Vitals Vital Signs Date Time Temp Pulse Resp B/P (MAP) Pulse Ox O2 Delivery O2 Flow Rate FiO2 09/30/18 06:00 60 21 109/67 (81) 98 Ventilator 09/30/18 04:00 98.6 98.6 Comments ros as mentioned as above discussed w rn, other sys otherwise neg on vent follows commands General: Alert HEENT: Other (nc at perrrl nose clear orally intubated neck no lad, no thyromegaly) Lungs: Other Cardiovascular: S1, S2 Abdomen: Soft, Non-tender, Other (no mass) Neuro Exam: Alert Extremities: No Edema Skin: Warm Labs Laboratory Tests Test 09/28/18 20:30 09/28/18 20:47 09/28/18 21:44 09/29/18 01:56 White Blood Count 12.4 x10^3/uL (4.0-11.0) Red Blood Count 4.19 x10^6/uL (3.50-5.40) Hemoglobin 12.1 g/dL (12.0-15.5) Hematocrit 37.7 % (36.0-47.0) Mean Corpuscular Volume 90 fL (79-100) Mean Corpuscular Hemoglobin 29 pg (25-35) Mean Corpuscular Hemoglobin Concent 32 g/dL (31-37) Red Cell Distribution Width 13.6 % (11.5-14.5) Platelet Count 317 x10^3/uL (140-400) Neutrophils (%) (Auto) 79 % (31-73) Lymphocytes (%) (Auto) 9 % (24-48) Monocytes (%) (Auto) 10 % (0-9) Eosinophils (%) (Auto) 1 % (0-3) Basophils (%) (Auto) 1 % (0-3) Neutrophils # (Auto) 9.8 x10^3uL (1.8-7.7) Lymphocytes # (Auto) 1.1 x10^3/uL (1.0-4.8) Monocytes # (Auto) 1.2 x10^3/uL (0.0-1.1) Eosinophils # (Auto) 0.1 x10^3/uL (0.0-0.7) Basophils # (Auto) 0.1 x10^3/uL (0.0-0.2) D-Dimer (Bibi) 0.32 ug/mlFEU (0.00-0.50) O2 Saturation 92 % (92-99) 92 % (92-99) 90 % (92-99) Arterial Blood pH 7.28 (7.35-7.45) 7.28 (7.35-7.45) 7.36 (7.35-7.45) Arterial Blood pCO2 at Patient Temp 91 mmHg (35-46) 88 mmHg (35-46) 69 mmHg (35-46) Arterial Blood pO2 at Patient Temp 65 mmHg (65-108) 65 mmHg (65-108) 59 mmHg (65-108) Arterial Blood HCO3 42 mmol/L (21-28) 41 mmol/L (21-28) 38 mmol/L (21-28) Arterial Blood Base Excess 12 mmol/L (-3-3) 10 mmol/L (-3-3) 10 mmol/L (-3-3) FiO2 35 35 30 Sodium Level 144 mmol/L (136-145) Potassium Level 4.6 mmol/L (3.5-5.1) Chloride Level 99 mmol/L (98-107) Carbon Dioxide Level 43 mmol/L (21-32) Anion Gap 2 (6-14) Blood Urea Nitrogen 14 mg/dL (7-20) Creatinine 0.5 mg/dL (0.6-1.0) Estimated GFR (Cockcroft-Gault) 124.2 BUN/Creatinine Ratio 28 (6-20) Glucose Level 102 mg/dL (70-99) Calcium Level 9.4 mg/dL (8.5-10.1) Total Bilirubin 0.4 mg/dL (0.2-1.0) Aspartate Amino Transf (AST/SGOT) 15 U/L (15-37) Alanine Aminotransferase (ALT/SGPT) 22 U/L (14-59) Alkaline Phosphatase 54 U/L (46-116) Troponin I Quantitative < 0.017 ng/mL (0.000-0.055) PS-Xfl-D-Type Natriuretic Peptide 554 pg/mL (0-124) Total Protein 6.7 g/dL (6.4-8.2) Albumin 3.2 g/dL (3.4-5.0) Albumin/Globulin Ratio 0.9 (1.0-1.7) Urine Collection Type U cath Urine Color Yellow Urine Clarity Clear Urine pH 6.5 Urine Specific [place] 1.020 Urine Protein Negative mg/dL (NEG-TRACE) Urine Glucose (UA) Negative mg/dL (NEG) Urine Ketones (Stick) 15 mg/dL (NEG) Urine Blood Moderate (NEG) Urine Nitrite Negative (NEG) Urine Bilirubin Negative (NEG) Urine Urobilinogen Dipstick 1.0 mg/dL (0.2 mg/dL) Urine Leukocyte Esterase Negative (NEG) Urine RBC 11-20 /HPF (0-2) Urine WBC 0 /HPF (0-4) Urine Squamous Epithelial Cells None /LPF Urine Amorphous Sediment Present /HPF Urine Bacteria 0 /HPF (0-FEW) Urine Mucus Slight /LPF Test 09/29/18 03:00 09/29/18 06:00 09/29/18 07:50 09/29/18 14:50 Troponin I Quantitative < 0.017 ng/mL (0.000-0.055) < 0.017 ng/mL (0.000-0.055) O2 Saturation 90 % (92-99) 96 % (92-99) Arterial Blood pH 7.47 (7.35-7.45) 7.38 (7.35-7.45) Arterial Blood pCO2 at Patient Temp 55 mmHg (35-46) 65 mmHg (35-46) Arterial Blood pO2 at Patient Temp 53 mmHg (65-108) 89 mmHg (65-108) Arterial Blood HCO3 39 mmol/L (21-28) 37 mmol/L (21-28) Arterial Blood Base Excess 13 mmol/L (-3-3) 10 mmol/L (-3-3) FiO2 30 40 t tube Test 09/30/18 04:30 White Blood Count 10.4 x10^3/uL (4.0-11.0) Red Blood Count 3.82 x10^6/uL (3.50-5.40) Hemoglobin 11.0 g/dL (12.0-15.5) Hematocrit 34.4 % (36.0-47.0) Mean Corpuscular Volume 90 fL (79-100) Mean Corpuscular Hemoglobin 29 pg (25-35) Mean Corpuscular Hemoglobin Concent 32 g/dL (31-37) Red Cell Distribution Width 14.0 % (11.5-14.5) Platelet Count 283 x10^3/uL (140-400) Neutrophils (%) (Auto) 93 % (31-73) Lymphocytes (%) (Auto) 6 % (24-48) Monocytes (%) (Auto) 1 % (0-9) Eosinophils (%) (Auto) 0 % (0-3) Basophils (%) (Auto) 0 % (0-3) Neutrophils # (Auto) 9.7 x10^3uL (1.8-7.7) Lymphocytes # (Auto) 0.6 x10^3/uL (1.0-4.8) Monocytes # (Auto) 0.1 x10^3/uL (0.0-1.1) Eosinophils # (Auto) 0.0 x10^3/uL (0.0-0.7) Basophils # (Auto) 0.0 x10^3/uL (0.0-0.2) Sodium Level 143 mmol/L (136-145) Potassium Level 4.0 mmol/L (3.5-5.1) Chloride Level 104 mmol/L (98-107) Carbon Dioxide Level 34 mmol/L (21-32) Anion Gap 5 (6-14) Blood Urea Nitrogen 20 mg/dL (7-20) Creatinine 0.7 mg/dL (0.6-1.0) Estimated GFR (Cockcroft-Gault) 84.2 BUN/Creatinine Ratio 29 (6-20) Glucose Level 139 mg/dL (70-99) Calcium Level 9.3 mg/dL (8.5-10.1) Total Bilirubin 0.3 mg/dL (0.2-1.0) Aspartate Amino Transf (AST/SGOT) 13 U/L (15-37) Alanine Aminotransferase (ALT/SGPT) 16 U/L (14-59) Alkaline Phosphatase 45 U/L (46-116) Total Protein 6.0 g/dL (6.4-8.2) Albumin 2.8 g/dL (3.4-5.0) Albumin/Globulin Ratio 0.9 (1.0-1.7) Laboratory Tests Test 09/29/18 07:50 09/29/18 14:50 09/30/18 04:30 O2 Saturation 90 % (92-99) 96 % (92-99) Arterial Blood pH 7.47 (7.35-7.45) 7.38 (7.35-7.45) Arterial Blood pCO2 at Patient Temp 55 mmHg (35-46) 65 mmHg (35-46) Arterial Blood pO2 at Patient Temp 53 mmHg (65-108) 89 mmHg (65-108) Arterial Blood HCO3 39 mmol/L (21-28) 37 mmol/L (21-28) Arterial Blood Base Excess 13 mmol/L (-3-3) 10 mmol/L (-3-3) FiO2 30 40 t tube White Blood Count 10.4 x10^3/uL (4.0-11.0) Red Blood Count 3.82 x10^6/uL (3.50-5.40) Hemoglobin 11.0 g/dL (12.0-15.5) Hematocrit 34.4 % (36.0-47.0) Mean Corpuscular Volume 90 fL (79-100) Mean Corpuscular Hemoglobin 29 pg (25-35) Mean Corpuscular Hemoglobin Concent 32 g/dL (31-37) Red Cell Distribution Width 14.0 % (11.5-14.5) Platelet Count 283 x10^3/uL (140-400) Neutrophils (%) (Auto) 93 % (31-73) Lymphocytes (%) (Auto) 6 % (24-48) Monocytes (%) (Auto) 1 % (0-9) Eosinophils (%) (Auto) 0 % (0-3) Basophils (%) (Auto) 0 % (0-3) Neutrophils # (Auto) 9.7 x10^3uL (1.8-7.7) Lymphocytes # (Auto) 0.6 x10^3/uL (1.0-4.8) Monocytes # (Auto) 0.1 x10^3/uL (0.0-1.1) Eosinophils # (Auto) 0.0 x10^3/uL (0.0-0.7) Basophils # (Auto) 0.0 x10^3/uL (0.0-0.2) Sodium Level 143 mmol/L (136-145) Potassium Level 4.0 mmol/L (3.5-5.1) Chloride Level 104 mmol/L (98-107) Carbon Dioxide Level 34 mmol/L (21-32) Anion Gap 5 (6-14) Blood Urea Nitrogen 20 mg/dL (7-20) Creatinine 0.7 mg/dL (0.6-1.0) Estimated GFR (Cockcroft-Gault) 84.2 BUN/Creatinine Ratio 29 (6-20) Glucose Level 139 mg/dL (70-99) Calcium Level 9.3 mg/dL (8.5-10.1) Total Bilirubin 0.3 mg/dL (0.2-1.0) Aspartate Amino Transf (AST/SGOT) 13 U/L (15-37) Alanine Aminotransferase (ALT/SGPT) 16 U/L (14-59) Alkaline Phosphatase 45 U/L (46-116) Total Protein 6.0 g/dL (6.4-8.2) Albumin 2.8 g/dL (3.4-5.0) Albumin/Globulin Ratio 0.9 (1.0-1.7) Medications Active Scripts Medications Dose Route/Sig Max Daily Dose Days Date Category Incruse Ellipta (Umeclidinium [place]) 62.5 Mcg Blst.w.dev 62.5 Mcg IH DAILY 07/11/17 Reported Breo Ellipta 100-25 Mcg Inh (Fluticasone/Vilanterol) 1 Each Aer.pow.ba 1 Puff IH DAILY 07/11/17 Reported Ventolin Hfa Inhaler (Albuterol Sulfate) 18 Gm Hfa.aer.ad 2 Puff INH Q4HRS 07/11/17 Reported Azithromycin Tablet (Azithromycin) 250 Mg Tablet 250 Mg PO DAILY 07/11/17 Reported Tudorza Pressair (Aclidinium [place]) 400 Mcg Aer.pow.ba 400 Mcg IH DAILY 07/11/17 Reported Prednisone 20 Mg Tablet 1 Tab PO DAILY 07/11/17 Reported Rosalia-D 24 Hour Tablet (Fexofenadine/Pseudoephedrine) 1 Each Tab.er.24h 1 Tab PO DAILY 07/11/17 Reported Comments cxr reviewed ett ok increased inter marking Impression . IMPRESSION: 1. Acute on chronic hypoxemic hypercapnic respiratory failure. 2. Acute exacerbation of chronic obstructive pulmonary disease. 3. Abnormal x-ray 4. Tobacco dependence. 5. Acute nonspecific bronchitis. Plan . PLAN: 1. We will treat the acute nonspecific bronchitis with steroids and antibiotics. 2. CT chest. 3. cont vent support, setting reviewed, will do sbt, evaluated during sbt, good vt, abg good, will extubate monitor resp status in icu 4. The patient will be once again instructed on the importance of avoiding tobacco use. 5. DVT and GI prophylaxis. 6. Nebulized treatments. discussed w rn, rt, pt YUMIKO LIM MD September 30, 2018 06:13
[2018-09-30] MEDS: IPRATRPIUM/ALBUTEROL 0.5/2.5MG 3 ML NEBU. NEB SCH ×4 (09:00→19:44)
[2018-09-30 09:43] LABS: BASE EXCESS ABG 5 mmol/L (-3-3); HCO3 ABG 32 mmol/L (21-28); PCO2 ABG 59 mmHg (35-46); PO2 ABG 90 mmHg (65-108); SAT O2 ABG 96 % (92-99)
[2018-09-30 09:47] LABS: FIO2 ABG 40
[2018-09-30] MEDS: FAMOTIDINE 20 MG/2 ML VIAL IVP SCH ×2 (10:30→20:50)
[2018-09-30] MEDS: methylPREDNISolone SOD SUCC PF 125 MG/2 ML VIAL. IV SCH ×2 (10:30→20:50)
[2018-09-30 10:38] LABS: % BANDS 4 % (0-9); % LYMPHS 6 % (24-48); % MONOS 1 % (0-10); % SEGS 89 % (35-66)
[2018-09-30 10:39] LABS: PLT ESTIMATE ADEQUATE (ADEQUATE)
--- NOTE | 2018-09-30 11:17 | PDOC ---
[employer] PROGRESS NOTE Chief Complaint Chief Complaint Acute on chronic hypoxemic hypercapnic respiratory failure. Acute exacerbation of chronic obstructive pulmonary disease. Abnormal x-ray Tobacco dependence. Acute nonspecific bronchitis. History of Present Illness History of Present Illness Patient seen and examined in the intensive care unit She just got extubated 5 minutes ago Her voice is hoarse She is still short of breath but maintaining her oxygen saturation with a nasal cannula I discussed the case with the nurse and respiratory therapist and Dr. Liu Vitals Vitals Vital Signs Date Time Temp Pulse Resp B/P (MAP) Pulse Ox O2 Delivery O2 Flow Rate FiO2 09/30/18 10:00 67 21 115/69 (84) 93 Nasal Cannula 3.0 09/30/18 07:00 97.5 97.5 Physical Exam General: Alert, Oriented X3 Heart: Regular rate, Normal S1 Lungs: Wheezing, Crackles, Other Abdomen: Normal bowel sounds, Soft Extremities: No clubbing, No cyanosis Skin: No rashes, No breakdown Labs Labs: Laboratory Tests Test 09/29/18 14:50 09/30/18 04:30 09/30/18 09:40 O2 Saturation 96 % (92-99) 96 % (92-99) Arterial Blood pH 7.38 (7.35-7.45) 7.35 (7.35-7.45) Arterial Blood pCO2 at Patient Temp 65 mmHg (35-46) 59 mmHg (35-46) Arterial Blood pO2 at Patient Temp 89 mmHg (65-108) 90 mmHg (65-108) Arterial Blood HCO3 37 mmol/L (21-28) 32 mmol/L (21-28) Arterial Blood Base Excess 10 mmol/L (-3-3) 5 mmol/L (-3-3) FiO2 40 t tube 40 White Blood Count 10.4 x10^3/uL (4.0-11.0) Red Blood Count 3.82 x10^6/uL (3.50-5.40) Hemoglobin 11.0 g/dL (12.0-15.5) Hematocrit 34.4 % (36.0-47.0) Mean Corpuscular Volume 90 fL (79-100) Mean Corpuscular Hemoglobin 29 pg (25-35) Mean Corpuscular Hemoglobin Concent 32 g/dL (31-37) Red Cell Distribution Width 14.0 % (11.5-14.5) Platelet Count 283 x10^3/uL (140-400) Neutrophils (%) (Auto) 93 % (31-73) Lymphocytes (%) (Auto) 6 % (24-48) Monocytes (%) (Auto) 1 % (0-9) Eosinophils (%) (Auto) 0 % (0-3) Basophils (%) (Auto) 0 % (0-3) Neutrophils # (Auto) 9.7 x10^3uL (1.8-7.7) Lymphocytes # (Auto) 0.6 x10^3/uL (1.0-4.8) Monocytes # (Auto) 0.1 x10^3/uL (0.0-1.1) Eosinophils # (Auto) 0.0 x10^3/uL (0.0-0.7) Basophils # (Auto) 0.0 x10^3/uL (0.0-0.2) Segmented Neutrophils % 89 % (35-66) Band Neutrophils % 4 % (0-9) Lymphocytes % 6 % (24-48) Monocytes % 1 % (0-10) Platelet Estimate Adequate (ADEQUATE) Sodium Level 143 mmol/L (136-145) Potassium Level 4.0 mmol/L (3.5-5.1) Chloride Level 104 mmol/L (98-107) Carbon Dioxide Level 34 mmol/L (21-32) Anion Gap 5 (6-14) Blood Urea Nitrogen 20 mg/dL (7-20) Creatinine 0.7 mg/dL (0.6-1.0) Estimated GFR (Cockcroft-Gault) 84.2 BUN/Creatinine Ratio 29 (6-20) Glucose Level 139 mg/dL (70-99) Calcium Level 9.3 mg/dL (8.5-10.1) Total Bilirubin 0.3 mg/dL (0.2-1.0) Aspartate Amino Transf (AST/SGOT) 13 U/L (15-37) Alanine Aminotransferase (ALT/SGPT) 16 U/L (14-59) Alkaline Phosphatase 45 U/L (46-116) Total Protein 6.0 g/dL (6.4-8.2) Albumin 2.8 g/dL (3.4-5.0) Albumin/Globulin Ratio 0.9 (1.0-1.7) Review of Systems Review of Systems She complains of shortness of breath and weakness Assessment and Plan Assessmemt and Plan Problems Medical Problems: (1) Acute hypercapnic respiratory failure Status: Acute Acute on chronic hypoxemic hypercapnic respiratory failure. Acute exacerbation of chronic obstructive pulmonary disease. Abnormal x-ray Tobacco dependence. Acute nonspecific bronchitis. Plan ICU monitoring IV steroids IV antibiotics Frequent labs Home meds DVT prophylaxis Full code Prognosis guarded We told her to avoid cigarettes Total time 33 minutes Comment Review of Relevant I have reviewed the following items heaven (where applicable) has been applied. Labs Laboratory Tests Test 09/28/18 20:30 09/28/18 20:47 09/28/18 21:44 09/29/18 01:56 White Blood Count 12.4 x10^3/uL (4.0-11.0) Red Blood Count 4.19 x10^6/uL (3.50-5.40) Hemoglobin 12.1 g/dL (12.0-15.5) Hematocrit 37.7 % (36.0-47.0) Mean Corpuscular Volume 90 fL (79-100) Mean Corpuscular Hemoglobin 29 pg (25-35) Mean Corpuscular Hemoglobin Concent 32 g/dL (31-37) Red Cell Distribution Width 13.6 % (11.5-14.5) Platelet Count 317 x10^3/uL (140-400) Neutrophils (%) (Auto) 79 % (31-73) Lymphocytes (%) (Auto) 9 % (24-48) Monocytes (%) (Auto) 10 % (0-9) Eosinophils (%) (Auto) 1 % (0-3) Basophils (%) (Auto) 1 % (0-3) Neutrophils # (Auto) 9.8 x10^3uL (1.8-7.7) Lymphocytes # (Auto) 1.1 x10^3/uL (1.0-4.8) Monocytes # (Auto) 1.2 x10^3/uL (0.0-1.1) Eosinophils # (Auto) 0.1 x10^3/uL (0.0-0.7) Basophils # (Auto) 0.1 x10^3/uL (0.0-0.2) D-Dimer (Bibi) 0.32 ug/mlFEU (0.00-0.50) O2 Saturation 92 % (92-99) 92 % (92-99) 90 % (92-99) Arterial Blood pH 7.28 (7.35-7.45) 7.28 (7.35-7.45) 7.36 (7.35-7.45) Arterial Blood pCO2 at Patient Temp 91 mmHg (35-46) 88 mmHg (35-46) 69 mmHg (35-46) Arterial Blood pO2 at Patient Temp 65 mmHg (65-108) 65 mmHg (65-108) 59 mmHg (65-108) Arterial Blood HCO3 42 mmol/L (21-28) 41 mmol/L (21-28) 38 mmol/L (21-28) Arterial Blood Base Excess 12 mmol/L (-3-3) 10 mmol/L (-3-3) 10 mmol/L (-3-3) FiO2 35 35 30 Sodium Level 144 mmol/L (136-145) Potassium Level 4.6 mmol/L (3.5-5.1) Chloride Level 99 mmol/L (98-107) Carbon Dioxide Level 43 mmol/L (21-32) Anion Gap 2 (6-14) Blood Urea Nitrogen 14 mg/dL (7-20) Creatinine 0.5 mg/dL (0.6-1.0) Estimated GFR (Cockcroft-Gault) 124.2 BUN/Creatinine Ratio 28 (6-20) Glucose Level 102 mg/dL (70-99) Calcium Level 9.4 mg/dL (8.5-10.1) Total Bilirubin 0.4 mg/dL (0.2-1.0) Aspartate Amino Transf (AST/SGOT) 15 U/L (15-37) Alanine Aminotransferase (ALT/SGPT) 22 U/L (14-59) Alkaline Phosphatase 54 U/L (46-116) Troponin I Quantitative < 0.017 ng/mL (0.000-0.055) BP-Vuc-J-Type Natriuretic Peptide 554 pg/mL (0-124) Total Protein 6.7 g/dL (6.4-8.2) Albumin 3.2 g/dL (3.4-5.0) Albumin/Globulin Ratio 0.9 (1.0-1.7) Urine Collection Type U cath Urine Color Yellow Urine Clarity Clear Urine pH 6.5 Urine Specific [place] 1.020 Urine Protein Negative mg/dL (NEG-TRACE) Urine Glucose (UA) Negative mg/dL (NEG) Urine Ketones (Stick) 15 mg/dL (NEG) Urine Blood Moderate (NEG) Urine Nitrite Negative (NEG) Urine Bilirubin Negative (NEG) Urine Urobilinogen Dipstick 1.0 mg/dL (0.2 mg/dL) Urine Leukocyte Esterase Negative (NEG) Urine RBC 11-20 /HPF (0-2) Urine WBC 0 /HPF (0-4) Urine Squamous Epithelial Cells None /LPF Urine Amorphous Sediment Present /HPF Urine Bacteria 0 /HPF (0-FEW) Urine Mucus Slight /LPF Test 09/29/18 03:00 09/29/18 06:00 09/29/18 07:50 09/29/18 14:50 Troponin I Quantitative < 0.017 ng/mL (0.000-0.055) < 0.017 ng/mL (0.000-0.055) O2 Saturation 90 % (92-99) 96 % (92-99) Arterial Blood pH 7.47 (7.35-7.45) 7.38 (7.35-7.45) Arterial Blood pCO2 at Patient Temp 55 mmHg (35-46) 65 mmHg (35-46) Arterial Blood pO2 at Patient Temp 53 mmHg (65-108) 89 mmHg (65-108) Arterial Blood HCO3 39 mmol/L (21-28) 37 mmol/L (21-28) Arterial Blood Base Excess 13 mmol/L (-3-3) 10 mmol/L (-3-3) FiO2 30 40 t tube Test 09/30/18 04:30 09/30/18 09:40 White Blood Count 10.4 x10^3/uL (4.0-11.0) Red Blood Count 3.82 x10^6/uL (3.50-5.40) Hemoglobin 11.0 g/dL (12.0-15.5) Hematocrit 34.4 % (36.0-47.0) Mean Corpuscular Volume 90 fL (79-100) Mean Corpuscular Hemoglobin 29 pg (25-35) Mean Corpuscular Hemoglobin Concent 32 g/dL (31-37) Red Cell Distribution Width 14.0 % (11.5-14.5) Platelet Count 283 x10^3/uL (140-400) Neutrophils (%) (Auto) 93 % (31-73) Lymphocytes (%) (Auto) 6 % (24-48) Monocytes (%) (Auto) 1 % (0-9) Eosinophils (%) (Auto) 0 % (0-3) Basophils (%) (Auto) 0 % (0-3) Neutrophils # (Auto) 9.7 x10^3uL (1.8-7.7) Lymphocytes # (Auto) 0.6 x10^3/uL (1.0-4.8) Monocytes # (Auto) 0.1 x10^3/uL (0.0-1.1) Eosinophils # (Auto) 0.0 x10^3/uL (0.0-0.7) Basophils # (Auto) 0.0 x10^3/uL (0.0-0.2) Segmented Neutrophils % 89 % (35-66) Band Neutrophils % 4 % (0-9) Lymphocytes % 6 % (24-48) Monocytes % 1 % (0-10) Platelet Estimate Adequate (ADEQUATE) Sodium Level 143 mmol/L (136-145) Potassium Level 4.0 mmol/L (3.5-5.1) Chloride Level 104 mmol/L (98-107) Carbon Dioxide Level 34 mmol/L (21-32) Anion Gap 5 (6-14) Blood Urea Nitrogen 20 mg/dL (7-20) Creatinine 0.7 mg/dL (0.6-1.0) Estimated GFR (Cockcroft-Gault) 84.2 BUN/Creatinine Ratio 29 (6-20) Glucose Level 139 mg/dL (70-99) Calcium Level 9.3 mg/dL (8.5-10.1) Total Bilirubin 0.3 mg/dL (0.2-1.0) Aspartate Amino Transf (AST/SGOT) 13 U/L (15-37) Alanine Aminotransferase (ALT/SGPT) 16 U/L (14-59) Alkaline Phosphatase 45 U/L (46-116) Total Protein 6.0 g/dL (6.4-8.2) Albumin 2.8 g/dL (3.4-5.0) Albumin/Globulin Ratio 0.9 (1.0-1.7) O2 Saturation 96 % (92-99) Arterial Blood pH 7.35 (7.35-7.45) Arterial Blood pCO2 at Patient Temp 59 mmHg (35-46) Arterial Blood pO2 at Patient Temp 90 mmHg (65-108) Arterial Blood HCO3 32 mmol/L (21-28) Arterial Blood Base Excess 5 mmol/L (-3-3) FiO2 40 Laboratory Tests Test 09/29/18 14:50 09/30/18 04:30 09/30/18 09:40 O2 Saturation 96 % (92-99) 96 % (92-99) Arterial Blood pH 7.38 (7.35-7.45) 7.35 (7.35-7.45) Arterial Blood pCO2 at Patient Temp 65 mmHg (35-46) 59 mmHg (35-46) Arterial Blood pO2 at Patient Temp 89 mmHg (65-108) 90 mmHg (65-108) Arterial Blood HCO3 37 mmol/L (21-28) 32 mmol/L (21-28) Arterial Blood Base Excess 10 mmol/L (-3-3) 5 mmol/L (-3-3) FiO2 40 t tube 40 White Blood Count 10.4 x10^3/uL (4.0-11.0) Red Blood Count 3.82 x10^6/uL (3.50-5.40) Hemoglobin 11.0 g/dL (12.0-15.5) Hematocrit 34.4 % (36.0-47.0) Mean Corpuscular Volume 90 fL (79-100) Mean Corpuscular Hemoglobin 29 pg (25-35) Mean Corpuscular Hemoglobin Concent 32 g/dL (31-37) Red Cell Distribution Width 14.0 % (11.5-14.5) Platelet Count 283 x10^3/uL (140-400) Neutrophils (%) (Auto) 93 % (31-73) Lymphocytes (%) (Auto) 6 % (24-48) Monocytes (%) (Auto) 1 % (0-9) Eosinophils (%) (Auto) 0 % (0-3) Basophils (%) (Auto) 0 % (0-3) Neutrophils # (Auto) 9.7 x10^3uL (1.8-7.7) Lymphocytes # (Auto) 0.6 x10^3/uL (1.0-4.8) Monocytes # (Auto) 0.1 x10^3/uL (0.0-1.1) Eosinophils # (Auto) 0.0 x10^3/uL (0.0-0.7) Basophils # (Auto) 0.0 x10^3/uL (0.0-0.2) Segmented Neutrophils % 89 % (35-66) Band Neutrophils % 4 % (0-9) Lymphocytes % 6 % (24-48) Monocytes % 1 % (0-10) Platelet Estimate Adequate (ADEQUATE) Sodium Level 143 mmol/L (136-145) Potassium Level 4.0 mmol/L (3.5-5.1) Chloride Level 104 mmol/L (98-107) Carbon Dioxide Level 34 mmol/L (21-32) Anion Gap 5 (6-14) Blood Urea Nitrogen 20 mg/dL (7-20) Creatinine 0.7 mg/dL (0.6-1.0) Estimated GFR (Cockcroft-Gault) 84.2 BUN/Creatinine Ratio 29 (6-20) Glucose Level 139 mg/dL (70-99) Calcium Level 9.3 mg/dL (8.5-10.1) Total Bilirubin 0.3 mg/dL (0.2-1.0) Aspartate Amino Transf (AST/SGOT) 13 U/L (15-37) Alanine Aminotransferase (ALT/SGPT) 16 U/L (14-59) Alkaline Phosphatase 45 U/L (46-116) Total Protein 6.0 g/dL (6.4-8.2) Albumin 2.8 g/dL (3.4-5.0) Albumin/Globulin Ratio 0.9 (1.0-1.7) Microbiology 09/28/18 Blood Culture - Final, Complete Medications Current Medications Ipratropium [place] (Atrovent) 0.5 mg 1X ONCE NEB Last administered on 09/28/18at 20:50; Start 09/28/18 at 20:30; Stop 09/28/18 at 20:40; Status DC Methylprednisolone Sodium Succinate (SOLU-Medrol 125MG VIAL) 125 mg 1X ONCE IV Last administered on 09/28/18at 20:30; Start 09/28/18 at 20:30; Stop 09/28/18 at 20:40; Status DC Albuterol Sulfate (Ventolin Neb Soln) 10 mg 1X ONCE CONT NEB Last administered on 09/28/18at 20:50; Start 09/28/18 at 20:30; Stop 09/28/18 at 20:40; Status DC Magnesium Sulfate 50 ml @ 25 mls/hr 1X ONCE IV Last administered on 09/28/18at 20:43; Start 09/28/18 at 20:30; Stop 09/28/18 at 22:29; Status DC Morphine Sulfate (Morphine Sulfate) 2 mg 1X ONCE IV Last administered on 09/29/18at 00:52; Start 09/28/18 at 21:30; Stop 09/28/18 at 21:31; Status DC Etomidate (Amidate) 20 mg STK-MED ONCE IV ; Start 09/29/18 at 00:10; Stop 09/29/18 at 00:11; Status DC Rocuronium [place] (Zemuron) 50 mg STK-MED ONCE .ROUTE ; Start 09/29/18 at 00:10; Stop 09/29/18 at 00:11; Status DC Sodium Chloride 1,000 ml @ 125 mls/hr Q8H IV Last administered on 09/29/18at 15:45; Start 09/29/18 at 00:30; Stop 09/30/18 at 00:29; Status DC Albuterol/ Ipratropium (Duoneb) 3 ml RTQID NEB Last administered on 09/29/18at 19:21; Start 09/29/18 at 08:00; Stop 09/30/18 at 07:59; Status DC Propofol 100 ml @ 0 mls/hr CONT PRN IV SEE PROTOCOL Last administered on 09/29/18at 02:01; Start 09/29/18 at 00:15 Midazolam HCl (Versed) 2 mg PRN Q30MIN PRN IV SEE COMMENTS.; Start 09/29/18 at 00:15 Propofol 50 ml @ 0.885 mls/ hr 1X ONCE IV Last administered on 09/29/18at 00:54; Start 09/29/18 at 01:00; Stop 10/01/18 at 09:06 Propofol 50 ml @ As Directed STK-MED ONCE IV ; Start 09/29/18 at 00:49; Stop 09/29/18 at 00:50; Status DC Ceftriaxone Sodium (Rocephin) 1 gm Q24H IVP Last administered on 09/29/18at 11:55; Start 09/29/18 at 12:00 Fentanyl (Duragesic 50mcg/ Hr Patch) 1 patch Q3DAYS TD Last administered on 09/29/18 11:58; Start 09/29/18 at 12:00 Enoxaparin Sodium (Lovenox 40mg Syringe) 40 mg Q24H SQ Last administered on 09/29/18 11:53; Start 09/29/18 at 12:00 Famotidine (Pepcid Vial) 20 mg BID IVP Last administered on 09/30/18at 10:30; Start 09/29/18 at 12:00 Fentanyl Citrate (Fentanyl 2ml Vial) 50 mcg 1X ONCE IM ; Start 09/29/18 at 11:45; Stop 09/29/18 at 11:57; Status DC Fentanyl Citrate (Fentanyl 2ml Vial) 50 mcg 1X ONCE IV Last administered on 09/29/18 11:58; Start 09/29/18 at 12:00; Stop 09/29/18 at 12:01; Status DC Doxycycline Hyclate 100 mg/ Dextrose 100 ml @ 50 mls/hr Q12H IV Last administered on 09/30/18at 02:24; Start 09/29/18 at 13:00 Methylprednisolone Sodium Succinate (SOLU-Medrol 125MG VIAL) 60 mg BID IV Last administered on 09/30/18at 10:30; Start 09/29/18 at 21:00 Dexmedetomidine HCl 200 mcg/ Sodium Chloride 50 ml @ 0 mls/hr CONT PRN IV PER PROTOCOL Last administered on 09/30/18at 00:44; Start 09/29/18 at 15:15 Sodium Chloride 500 ml @ 500 mls/hr 1X PRN PRN IV SEE COMMENTS; Start 09/29/18 at 15:15 Atropine Sulfate (ATROPINE 0.5mg SYRINGE) 0.5 mg PRN Q5MIN PRN IV SEE COMMENTS; Start 09/29/18 at 15:15 Albuterol/ Ipratropium (Duoneb) 3 ml RTQID NEB ; Start 09/30/18 at 09:00 Active Scripts Active Reported Incruse Ellipta (Umeclidinium [place]) 62.5 Mcg Blst.w.dev 62.5 Mcg IH DAILY Breo Ellipta 100-25 Mcg Inh (Fluticasone/Vilanterol) 1 Each Aer.pow.ba 1 Puff IH DAILY Ventolin Hfa Inhaler (Albuterol Sulfate) 18 Gm Hfa.aer.ad 2 Puff INH Q4HRS Azithromycin Tablet (Azithromycin) 250 Mg Tablet 250 Mg PO DAILY Tudorza Pressair (Aclidinium [place]) 400 Mcg Aer.pow.ba 400 Mcg IH DAILY Prednisone 20 Mg Tablet 1 Tab PO DAILY Rosalia-D 24 Hour Tablet (Fexofenadine/Pseudoephedrine) 1 Each Tab.er.24h 1 Tab PO DAILY Vitals/I & O Vital Sign - Last 24 Hours 09/29/18 09/29/18 09/29/18 09/29/18 11:28 11:37 11:58 11:58 Resp 18 18 18 Pulse Ox 96 96 40 96 O2 Delivery Ventilator Ventilator Ventilator Ventilator 09/29/18 09/29/18 09/29/18 09/29/18 12:00 12:00 13:00 13:16 Temp 98.9 98.9 Pulse 80 83 Resp 18 18 18 B/P (MAP) 95/57 (70) 106/58 (74) Pulse Ox 96 96 96 O2 Delivery Ventilator Mechanical Ventilator Ventilator Ventilator 09/29/18 09/29/18 09/29/18 09/29/18 14:00 14:11 15:00 15:07 Pulse 84 93 Resp 16 19 B/P (MAP) 128/51 (76) 118/64 (82) Pulse Ox 94 97 97 O2 Delivery T-Tube T-Tube Ventilator Ventilator 09/29/18 09/29/18 09/29/18 09/29/18 16:00 16:00 16:00 16:55 Temp 98.6 98.6 Pulse 83 Resp 24 B/P (MAP) 110/64 (79) Pulse Ox 96 96 95 O2 Delivery Mechanical Ventilator Ventilator Ventilator 09/29/18 09/29/18 09/29/18 09/29/18 17:00 18:00 18:30 19:22 Pulse 92 85 72 Resp 28 22 B/P (MAP) 118/66 (83) 99/56 (70) 75/47 (56) Pulse Ox 91 98 98 O2 Delivery Ventilator Ventilator Ventilator 09/29/18 09/29/18 09/29/18 09/29/18 20:00 20:00 21:00 21:58 Temp 98.5 98.5 Pulse 64 66 Resp 20 20 B/P (MAP) 92/54 (67) 94/57 (69) Pulse Ox 96 96 99 O2 Delivery Mechanical Ventilator Ventilator Ventilator Ventilator 09/29/18 09/29/18 09/30/18 09/30/18 22:00 23:00 00:00 00:01 Temp 98.9 98.9 Pulse 62 66 74 Resp 21 21 14 B/P (MAP) 104/56 (72) 103/50 (67) 97/53 (68) Pulse Ox 99 99 96 O2 Delivery Ventilator Ventilator Mechanical Ventilator Ventilator 09/30/18 09/30/18 09/30/18 09/30/18 00:24 01:00 02:00 02:48 Pulse 62 56 Resp 21 21 B/P (MAP) 104/68 (80) 119/65 (83) Pulse Ox 95 99 99 95 O2 Delivery Ventilator Ventilator Ventilator Ventilator 09/30/18 09/30/18 09/30/18 09/30/18 03:00 03:46 04:00 04:25 Temp 98.6 98.6 Pulse 63 60 Resp 12 20 B/P (MAP) 117/63 (81) 106/55 (72) Pulse Ox 99 96 96 O2 Delivery Ventilator Mechanical Ventilator Ventilator Ventilator 09/30/18 09/30/18 09/30/18 09/30/18 05:00 06:00 07:00 08:00 Temp 97.5 97.5 Pulse 56 60 51 Resp 21 21 18 B/P (MAP) 109/60 (76) 109/67 (81) 121/66 (84) Pulse Ox 96 98 96 O2 Delivery Ventilator Ventilator Ventilator Mechanical Ventilator 09/30/18 09/30/18 09/30/18 09/30/18 08:00 08:14 09:00 10:00 Pulse 61 76 67 Resp 14 26 21 B/P (MAP) 133/65 (87) 127/49 (75) 115/69 (84) Pulse Ox 99 97 96 93 O2 Delivery Ventilator Ventilator BiPAP/CPAP Nasal Cannula O2 Flow Rate 3.0 Intake and Output 09/29/18 09/29/18 09/30/18 15:00 23:00 07:00 Intake Total 1600 ml 1901 ml Output Total 355 ml 970 ml 455 ml Balance -355 ml 630 ml 1446 ml CASTGILMER,NIAL K III DO September 30, 2018 11:17
[2018-09-30] MEDS: cefTRIAXone IV Push 1 GM VIAL. IVP SCH (12:39)
[2018-09-30] MEDS: ENOXAPARIN 40 MG/0.4 ML SYRINGE. SQ SCH (12:41)
[2018-10-01] VITALS (13 sets, daily range): BP systolic 101–132; BP diastolic 57–70
[2018-10-01] MEDS: DOXYCYCLINE HYCLATE 100 MG in IV DEXTROSE 5% 100ML 100 ML IV SCH ×2 (00:58→13:38)
--- NOTE | 2018-10-01 06:31 | PDOC ---
PULMONARY PROGRESS NOTES Subjective extubated 09/30, on o2 3 lpm, is anxious, sob, cough better, no pain Vitals Vital Signs Date Time Temp Pulse Resp B/P (MAP) Pulse Ox O2 Delivery O2 Flow Rate FiO2 10/01/18 05:00 73 20 106/57 (73) 96 Nasal Cannula 3.0 10/01/18 04:00 97.5 97.5 Comments ros as mentioned as above discussed w rn, other sys otherwise neg General: Alert, Oriented X4 HEENT: Other (nc at perrrl nose, throat clear neck no lad, no thyromegaly) Lungs: Crackles, Other Cardiovascular: S1, S2 Abdomen: Soft, Non-tender, Other (no mass) Neuro Exam: Alert Extremities: No Edema Skin: Warm Labs Laboratory Tests Test 09/29/18 07:50 09/29/18 14:50 09/30/18 04:30 09/30/18 09:40 O2 Saturation 90 % (92-99) 96 % (92-99) 96 % (92-99) Arterial Blood pH 7.47 (7.35-7.45) 7.38 (7.35-7.45) 7.35 (7.35-7.45) Arterial Blood pCO2 at Patient Temp 55 mmHg (35-46) 65 mmHg (35-46) 59 mmHg (35-46) Arterial Blood pO2 at Patient Temp 53 mmHg (65-108) 89 mmHg (65-108) 90 mmHg (65-108) Arterial Blood HCO3 39 mmol/L (21-28) 37 mmol/L (21-28) 32 mmol/L (21-28) Arterial Blood Base Excess 13 mmol/L (-3-3) 10 mmol/L (-3-3) 5 mmol/L (-3-3) FiO2 30 40 t tube 40 White Blood Count 10.4 x10^3/uL (4.0-11.0) Red Blood Count 3.82 x10^6/uL (3.50-5.40) Hemoglobin 11.0 g/dL (12.0-15.5) Hematocrit 34.4 % (36.0-47.0) Mean Corpuscular Volume 90 fL (79-100) Mean Corpuscular Hemoglobin 29 pg (25-35) Mean Corpuscular Hemoglobin Concent 32 g/dL (31-37) Red Cell Distribution Width 14.0 % (11.5-14.5) Platelet Count 283 x10^3/uL (140-400) Neutrophils (%) (Auto) 93 % (31-73) Lymphocytes (%) (Auto) 6 % (24-48) Monocytes (%) (Auto) 1 % (0-9) Eosinophils (%) (Auto) 0 % (0-3) Basophils (%) (Auto) 0 % (0-3) Neutrophils # (Auto) 9.7 x10^3uL (1.8-7.7) Lymphocytes # (Auto) 0.6 x10^3/uL (1.0-4.8) Monocytes # (Auto) 0.1 x10^3/uL (0.0-1.1) Eosinophils # (Auto) 0.0 x10^3/uL (0.0-0.7) Basophils # (Auto) 0.0 x10^3/uL (0.0-0.2) Segmented Neutrophils % 89 % (35-66) Band Neutrophils % 4 % (0-9) Lymphocytes % 6 % (24-48) Monocytes % 1 % (0-10) Platelet Estimate Adequate (ADEQUATE) Sodium Level 143 mmol/L (136-145) Potassium Level 4.0 mmol/L (3.5-5.1) Chloride Level 104 mmol/L (98-107) Carbon Dioxide Level 34 mmol/L (21-32) Anion Gap 5 (6-14) Blood Urea Nitrogen 20 mg/dL (7-20) Creatinine 0.7 mg/dL (0.6-1.0) Estimated GFR (Cockcroft-Gault) 84.2 BUN/Creatinine Ratio 29 (6-20) Glucose Level 139 mg/dL (70-99) Calcium Level 9.3 mg/dL (8.5-10.1) Total Bilirubin 0.3 mg/dL (0.2-1.0) Aspartate Amino Transf (AST/SGOT) 13 U/L (15-37) Alanine Aminotransferase (ALT/SGPT) 16 U/L (14-59) Alkaline Phosphatase 45 U/L (46-116) Total Protein 6.0 g/dL (6.4-8.2) Albumin 2.8 g/dL (3.4-5.0) Albumin/Globulin Ratio 0.9 (1.0-1.7) Laboratory Tests Test 09/30/18 09:40 O2 Saturation 96 % (92-99) Arterial Blood pH 7.35 (7.35-7.45) Arterial Blood pCO2 at Patient Temp 59 mmHg (35-46) Arterial Blood pO2 at Patient Temp 90 mmHg (65-108) Arterial Blood HCO3 32 mmol/L (21-28) Arterial Blood Base Excess 5 mmol/L (-3-3) FiO2 40 Medications Active Scripts Medications Dose Route/Sig Max Daily Dose Days Date Category Incruse Ellipta (Umeclidinium [place]) 62.5 Mcg Blst.w.dev 62.5 Mcg IH DAILY 07/11/17 Reported Breo Ellipta 100-25 Mcg Inh (Fluticasone/Vilanterol) 1 Each Aer.pow.ba 1 Puff IH DAILY 07/11/17 Reported Ventolin Hfa Inhaler (Albuterol Sulfate) 18 Gm Hfa.aer.ad 2 Puff INH Q4HRS 07/11/17 Reported Azithromycin Tablet (Azithromycin) 250 Mg Tablet 250 Mg PO DAILY 07/11/17 Reported Tudorza Pressair (Aclidinium [place]) 400 Mcg Aer.pow.ba 400 Mcg IH DAILY 07/11/17 Reported Prednisone 20 Mg Tablet 1 Tab PO DAILY 07/11/17 Reported Rosalia-D 24 Hour Tablet (Fexofenadine/Pseudoephedrine) 1 Each Tab.er.24h 1 Tab PO DAILY 07/11/17 Reported Comments cxr 09/29, reviewed ett ok increased inter marking Impression . IMPRESSION: 1. Acute on chronic hypoxemic hypercapnic respiratory failure. 2. Acute exacerbation of chronic obstructive pulmonary disease. 3. Abnormal x-ray 4. Tobacco dependence. 5. Acute nonspecific bronchitis. Plan . PLAN: 1. cont abx, change solumedrol to [address] chest to r/o ILD. 3. IS 4. The patient will be once again instructed on the importance of avoiding tobacco use. 5. DVT and GI prophylaxis. 6. Nebulized treatments. discussed w rn, rt, pt ?out of icu YUMIKO LIM MD October 01, 2018 06:31
[2018-10-01] MEDS: IPRATRPIUM/ALBUTEROL 0.5/2.5MG 3 ML NEBU. NEB SCH ×4 (08:30→19:50)
[2018-10-01] MEDS: FAMOTIDINE 20 MG/2 ML VIAL IVP SCH ×2 (09:18→20:34)
[2018-10-01] MEDS: methylPREDNISolone SOD SUCC PF 40 MG/ML VIAL. IV SCH ×2 (09:18→20:35)
--- NOTE | 2018-10-01 09:30 | NUR ---
Carvalho removed [phone]. Patient transferred to [facility].
--- NOTE | 2018-10-01 10:44 | RAD ---
Chest CT without contrast Clinical indications: Respiratory failure. COMPARISON: No previous chest CT. TECHNIQUE: Noncontrast helical CT scanning of the chest was performed. Without IV contrast, the sensitivity to detect organ pathology is decreased. PQRS compliance Statement One or more of the following individualized dose reduction techniques were utilized for this study: 1. Automated exposure control 2. Adjustment of the mA and/or kV according to patient size 3. Use of iterative reconstruction technique FINDINGS: No enlarged thoracic lymphadenopathy is evident. No focal aneurysmal dilatation of thoracic aorta is seen. Heart size is normal. No pericardial effusion is seen. Bilateral emphysema is seen with an upper lung zone predominance. There are small approximate 1 cm subpleural lung nodules within the posterior aspect of the right lower lobe. There is a subpleural nodule within the medial posterior aspect of the superior segment left lower lobe measuring 8 mm in size. These most likely represent atelectasis. Small focus of atelectasis is seen involving the posterior medial aspect of the basal segment of the left lower lobe. No lung mass or lung consolidation is seen. No pleural effusion or pneumothorax is evident. The proximal bronchial tree is patent. No lytic process is seen. No adrenal mass is evident. IMPRESSION: Small bilateral lung nodules. Recommend a follow-up noncontrast chest CT in 3 months as per Fleischner guidelines. Emphysema. No lung consolidation or pleural effusion. Electronically signed by: Harris Diaz MD (10/01/2018 10:41 AM) [facility]
[2018-10-01] MEDS: cefTRIAXone IV Push 1 GM VIAL. IVP SCH (11:58)
[2018-10-01] MEDS: ENOXAPARIN 40 MG/0.4 ML SYRINGE. SQ SCH (11:59)
--- NOTE | 2018-10-01 12:47 | PDOC ---
[facility] [facility] PROGRESS NOTE Chief Complaint Chief Complaint Acute on chronic hypoxemic hypercapnic respiratory failure. Acute exacerbation of chronic obstructive pulmonary disease. Abnormal x-ray Tobacco dependence. Acute nonspecific bronchitis. 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 She is no longer SOB Counselled to continue smoking cessation Vitals Vitals Vital Signs Date Time Temp Pulse Resp B/P (MAP) Pulse Ox O2 Delivery O2 Flow Rate FiO2 10/01/18 10:39 Nasal Cannula 3.0 10/01/18 08:43 94 10/01/18 07:00 97.8 72 21 131/57 (81) 97.8 Physical Exam General: Alert, Oriented X3 Heart: Regular rate, Normal S1 Lungs: Clear Abdomen: Normal bowel sounds, Soft Extremities: No clubbing, No cyanosis Skin: No rashes, No breakdown Review of Systems Review of Systems Patient denies chest pain Patient admits to mild throat soreness Assessment and Plan Assessmemt and Plan Problems Medical Problems: (1) Acute hypercapnic respiratory failure Status: Acute Assessment: Acute on chronic hypoxemic hypercapnic respiratory failure. Acute exacerbation of chronic obstructive pulmonary disease. Abnormal x-ray Tobacco dependence. Acute nonspecific bronchitis. Plan: Duonebs IV steroids IV antibiotics- Doxy, Rocephin Frequent labs Home meds DVT prophylaxis Full code Hope to Discharge when okay with pulmonary Continue smoking cessation Comment Review of Relevant I have reviewed the following items heaven (where applicable) has been applied. Labs Laboratory Tests Test 09/29/18 14:50 09/30/18 04:30 09/30/18 09:40 O2 Saturation 96 % (92-99) 96 % (92-99) Arterial Blood pH 7.38 (7.35-7.45) 7.35 (7.35-7.45) Arterial Blood pCO2 at Patient Temp 65 mmHg (35-46) 59 mmHg (35-46) Arterial Blood pO2 at Patient Temp 89 mmHg (65-108) 90 mmHg (65-108) Arterial Blood HCO3 37 mmol/L (21-28) 32 mmol/L (21-28) Arterial Blood Base Excess 10 mmol/L (-3-3) 5 mmol/L (-3-3) FiO2 40 t tube 40 White Blood Count 10.4 x10^3/uL (4.0-11.0) Red Blood Count 3.82 x10^6/uL (3.50-5.40) Hemoglobin 11.0 g/dL (12.0-15.5) Hematocrit 34.4 % (36.0-47.0) Mean Corpuscular Volume 90 fL (79-100) Mean Corpuscular Hemoglobin 29 pg (25-35) Mean Corpuscular Hemoglobin Concent 32 g/dL (31-37) Red Cell Distribution Width 14.0 % (11.5-14.5) Platelet Count 283 x10^3/uL (140-400) Neutrophils (%) (Auto) 93 % (31-73) Lymphocytes (%) (Auto) 6 % (24-48) Monocytes (%) (Auto) 1 % (0-9) Eosinophils (%) (Auto) 0 % (0-3) Basophils (%) (Auto) 0 % (0-3) Neutrophils # (Auto) 9.7 x10^3uL (1.8-7.7) Lymphocytes # (Auto) 0.6 x10^3/uL (1.0-4.8) Monocytes # (Auto) 0.1 x10^3/uL (0.0-1.1) Eosinophils # (Auto) 0.0 x10^3/uL (0.0-0.7) Basophils # (Auto) 0.0 x10^3/uL (0.0-0.2) Segmented Neutrophils % 89 % (35-66) Band Neutrophils % 4 % (0-9) Lymphocytes % 6 % (24-48) Monocytes % 1 % (0-10) Platelet Estimate Adequate (ADEQUATE) Sodium Level 143 mmol/L (136-145) Potassium Level 4.0 mmol/L (3.5-5.1) Chloride Level 104 mmol/L (98-107) Carbon Dioxide Level 34 mmol/L (21-32) Anion Gap 5 (6-14) Blood Urea Nitrogen 20 mg/dL (7-20) Creatinine 0.7 mg/dL (0.6-1.0) Estimated GFR (Cockcroft-Gault) 84.2 BUN/Creatinine Ratio 29 (6-20) Glucose Level 139 mg/dL (70-99) Calcium Level 9.3 mg/dL (8.5-10.1) Total Bilirubin 0.3 mg/dL (0.2-1.0) Aspartate Amino Transf (AST/SGOT) 13 U/L (15-37) Alanine Aminotransferase (ALT/SGPT) 16 U/L (14-59) Alkaline Phosphatase 45 U/L (46-116) Total Protein 6.0 g/dL (6.4-8.2) Albumin 2.8 g/dL (3.4-5.0) Albumin/Globulin Ratio 0.9 (1.0-1.7) Microbiology 09/28/18 Blood Culture - Final, Complete Medications Current Medications Ipratropium [place] (Atrovent) 0.5 mg 1X ONCE NEB Last administered on 09/28/18at 20:50; Start 09/28/18 at 20:30; Stop 09/28/18 at 20:40; Status DC Methylprednisolone Sodium Succinate (SOLU-Medrol 125MG VIAL) 125 mg 1X ONCE IV Last administered on 09/28/18at 20:30; Start 09/28/18 at 20:30; Stop 09/28/18 at 20:40; Status DC Albuterol Sulfate (Ventolin Neb Soln) 10 mg 1X ONCE CONT NEB Last administered on 09/28/18at 20:50; Start 09/28/18 at 20:30; Stop 09/28/18 at 20:40; Status DC Magnesium Sulfate 50 ml @ 25 mls/hr 1X ONCE IV Last administered on 09/28/18at 20:43; Start 09/28/18 at 20:30; Stop 09/28/18 at 22:29; Status DC Morphine Sulfate (Morphine Sulfate) 2 mg 1X ONCE IV Last administered on 09/29/18at 00:52; Start 09/28/18 at 21:30; Stop 09/28/18 at 21:31; Status DC Etomidate (Amidate) 20 mg STK-MED ONCE IV ; Start 09/29/18 at 00:10; Stop 09/29/18 at 00:11; Status DC Rocuronium [place] (Zemuron) 50 mg STK-MED ONCE .ROUTE ; Start 09/29/18 at 00:10; Stop 09/29/18 at 00:11; Status DC Sodium Chloride 1,000 ml @ 125 mls/hr Q8H IV Last administered on 09/29/18at 15:45; Start 09/29/18 at 00:30; Stop 09/30/18 at 00:29; Status DC Albuterol/ Ipratropium (Duoneb) 3 ml RTQID NEB Last administered on 09/29/18at 19:21; Start 09/29/18 at 08:00; Stop 09/30/18 at 07:59; Status DC Propofol 100 ml @ 0 mls/hr CONT PRN IV SEE PROTOCOL Last administered on 09/29/18at 02:01; Start 09/29/18 at 00:15; Stop 10/01/18 at 08:30; Status DC Midazolam HCl (Versed) 2 mg PRN Q30MIN PRN IV SEE COMMENTS.; Start 09/29/18 at 00:15; Stop 10/01/18 at 08:30; Status DC Propofol 50 ml @ 0.885 mls/ hr 1X ONCE IV Last administered on 09/29/18at 00:54; Start 09/29/18 at 01:00; Stop 10/01/18 at 09:06; Status DC Propofol 50 ml @ As Directed STK-MED ONCE IV ; Start 09/29/18 at 00:49; Stop 09/29/18 at 00:50; Status DC Ceftriaxone Sodium (Rocephin) 1 gm Q24H IVP Last administered on 10/01/18at 11:58; Start 09/29/18 at 12:00 Fentanyl (Duragesic 50mcg/ Hr Patch) 1 patch Q3DAYS TD Last administered on 09/29/18at 11:58; Start 09/29/18 at 12:00 Enoxaparin Sodium (Lovenox 40mg Syringe) 40 mg Q24H SQ Last administered on 10/01/18at 11:59; Start 09/29/18 at 12:00 Famotidine (Pepcid Vial) 20 mg BID IVP Last administered on 10/01/18at 09:18; Start 09/29/18 at 12:00 Fentanyl Citrate (Fentanyl 2ml Vial) 50 mcg 1X ONCE IM ; Start 09/29/18 at 11:45; Stop 09/29/18 at 11:57; Status DC Fentanyl Citrate (Fentanyl 2ml Vial) 50 mcg 1X ONCE IV Last administered on 09/29/18at 11:58; Start 09/29/18 at 12:00; Stop 09/29/18 at 12:01; Status DC Doxycycline Hyclate 100 mg/ Dextrose 100 ml @ 50 mls/hr Q12H IV Last administered on 10/01/18at 00:58; Start 09/29/18 at 13:00 Methylprednisolone Sodium Succinate (SOLU-Medrol 125MG VIAL) 60 mg BID IV Last administered on 09/30/18at 20:50; Start 09/29/18 at 21:00; Stop 10/01/18 at 06:33; Status DC Dexmedetomidine HCl 200 mcg/ Sodium Chloride 50 ml @ 0 mls/hr CONT PRN IV PER PROTOCOL Last administered on 09/30/18at 00:44; Start 09/29/18 at 15:15 Sodium Chloride 500 ml @ 500 mls/hr 1X PRN PRN IV SEE COMMENTS; Start 09/29/18 at 15:15 Atropine Sulfate (ATROPINE 0.5mg SYRINGE) 0.5 mg PRN Q5MIN PRN IV SEE COMMENTS; Start 09/29/18 at 15:15 Albuterol/ Ipratropium (Duoneb) 3 ml RTQID NEB Last administered on 10/01/18at 08:30; Start 09/30/18 at 09:00 Methylprednisolone Sodium Succinate (SOLU-Medrol 40MG VIAL) 40 mg BID IV Last administered on 10/01/18at 09:18; Start 10/01/18 at 09:00 Active Scripts Active Reported Incruse Ellipta (Umeclidinium [place]) 62.5 Mcg Blst.w.dev 62.5 Mcg IH DAILY Breo Ellipta 100-25 Mcg Inh (Fluticasone/Vilanterol) 1 Each Aer.pow.ba 1 Puff IH DAILY Ventolin Hfa Inhaler (Albuterol Sulfate) 18 Gm Hfa.aer.ad 2 Puff INH Q4HRS Azithromycin Tablet (Azithromycin) 250 Mg Tablet 250 Mg PO DAILY Tudorza Pressair (Aclidinium [place]) 400 Mcg Aer.pow.ba 400 Mcg IH DAILY Prednisone 20 Mg Tablet 1 Tab PO DAILY Rosalia-D 24 Hour Tablet (Fexofenadine/Pseudoephedrine) 1 Each Tab.er.24h 1 Tab PO DAILY Vitals/I & O Vital Sign - Last 24 Hours 09/30/18 09/30/18 09/30/18 09/30/18 13:00 13:41 14:00 15:00 Temp 98.2 98.2 Pulse 89 84 83 Resp 21 22 22 B/P (MAP) 131/63 (85) 109/54 (72) 111/55 (73) Pulse Ox 93 92 98 93 O2 Delivery Nasal Cannula Nasal Cannula Nasal Cannula Nasal Cannula O2 Flow Rate 3.0 3.0 3.0 3.0 09/30/18 09/30/18 09/30/18 09/30/18 16:00 16:00 16:53 17:00 Pulse 78 80 Resp 27 B/P (MAP) 119/62 (81) 105/64 (78) Pulse Ox 95 95 97 O2 Delivery Nasal Cannula Nasal Cannula Nasal Cannula Nasal Cannula O2 Flow Rate 3.0 3.0 3.0 3.0 09/30/18 09/30/18 09/30/18 09/30/18 18:00 19:00 19:44 20:00 Temp 98.3 98.3 Pulse 112 88 Resp 27 B/P (MAP) 118/63 (81) 102/57 (72) Pulse Ox 92 95 96 O2 Delivery Nasal Cannula Nasal Cannula Nasal Cannula Nasal Cannula O2 Flow Rate 3.0 3.0 3.0 3.0 09/30/18 09/30/18 09/30/18 09/30/18 20:00 21:00 22:00 23:00 Pulse 97 100 85 90 Resp 25 18 20 B/P (MAP) 106/57 (73) 97/71 (80) 101/59 (73) 102/58 (73) Pulse Ox 94 93 94 95 O2 Delivery Nasal Cannula Nasal Cannula Nasal Cannula Nasal Cannula O2 Flow Rate 3.0 3.0 3.0 3.0 09/30/18 10/01/18 10/01/18 10/01/18 23:59 00:00 01:00 02:00 Temp 97.8 97.8 Pulse 81 80 76 Resp 24 14 17 B/P (MAP) 101/57 (72) 109/69 (82) 106/63 (77) Pulse Ox 94 96 94 O2 Delivery Nasal Cannula Nasal Cannula Nasal Cannula Nasal Cannula O2 Flow Rate 3.0 3.0 3.0 3.0 10/01/18 10/01/18 10/01/18 10/01/18 03:00 04:00 04:00 05:00 Temp 97.5 97.5 Pulse 69 72 73 Resp 20 25 20 B/P (MAP) 104/65 (78) 106/66 (79) 106/57 (73) Pulse Ox 94 94 96 O2 Delivery Nasal Cannula Nasal Cannula Nasal Cannula Nasal Cannula O2 Flow Rate 3.0 3.0 3.0 3.0 10/01/18 10/01/18 10/01/18 10/01/18 06:00 07:00 08:00 08:43 Temp 97.8 97.8 Pulse 68 72 Resp 22 21 B/P (MAP) 112/65 (81) 131/57 (81) Pulse Ox 97 96 94 O2 Delivery Nasal Cannula Nasal Cannula Nasal Cannula Nasal Cannula O2 Flow Rate 3.0 3.0 3.0 3.0 10/01/18 10:39 O2 Delivery Nasal Cannula O2 Flow Rate 3.0 Intake and Output 09/30/18 09/30/18 10/01/18 15:00 23:00 07:00 Intake Total 320 ml 170 ml 120 ml Output Total 540 ml 515 ml 245 ml Balance -220 ml -345 ml -125 ml JASSON LONG III DO October 01, 2018 12:47
[2018-10-02] MEDS: DOXYCYCLINE HYCLATE 100 MG in IV DEXTROSE 5% 100ML 100 ML IV SCH (00:55)
[2018-10-02 03:00] VITALS: BP 127/61
[2018-10-02 07:00] VITALS: BP 121/52
[2018-10-02] MEDS: IPRATRPIUM/ALBUTEROL 0.5/2.5MG 3 ML NEBU. NEB SCH ×4 (07:01→20:02)
[2018-10-02] MEDS ORDERED: guaiFENesin DM 200MG/20MG 10 ML SYRUP PO PRN (08:30)
[2018-10-02 08:35] LABS: BASO % 0 % (0-3); EOS % 0 % (0-3); HEMATOCRIT 37.8 % (36.0-47.0); HEMOGLOBIN 11.9 g/dL (12.0-15.5); LYMPH # 1.2 x10^3/uL (1.0-4.8); LYMPH % 12 % (24-48); MEAN CORPUSCULAR HEMOGLOBIN 28 pg (25-35); MEAN CORPUSCULAR HGB CONC 32 g/dL (31-37); MEAN CORPUSCULAR VOLUME 90 fL (79-100); MONO % 9 % (0-9); NEUT # 8.5 x10^3uL (1.8-7.7); NEUT % 79 % (31-73); PLATELET COUNT 337 x10^3/uL (140-400); RED BLOOD COUNT 4.19 x10^6/uL (3.50-5.40); WHITE BLOOD COUNT 10.8 x10^3/uL (4.0-11.0)
[2018-10-02 08:49] LABS: CALCIUM 9.4 mg/dL (8.5-10.1); CREATININE 0.7 mg/dL (0.6-1.0); GFR 84.2; POTASSIUM 4.4 mmol/L (3.5-5.1)
[2018-10-02] MEDS ORDERED: NON FORMULARY ITEM (Umeclidinium Bromide (Incruse Ellipta) 62.5 MCG) IH SCH (09:00)
[2018-10-02] MEDS ORDERED: NON FORMULARY ITEM (Fexofenadine/Pseudoephedrine (Allegra-D 24 Hour Tablet) 1 TAB) PO SCH (09:00)
[2018-10-02] MEDS ORDERED: NON FORMULARY ITEM (Aclidinium Bromide (Tudorza Pressair) 400 MCG) IH SCH (09:00)
[2018-10-02] MEDS: fentaNYL 50MCG/HR PATCH 1 PATCH PATCH.TD72 TD SCH (09:00)
[2018-10-02] MEDS: methylPREDNISolone SOD SUCC PF 40 MG/ML VIAL. IV SCH ×2 (09:22→20:28)
[2018-10-02] MEDS: CETIRIZINE HCL 10 MG TABLET. PO SCH (09:22)
[2018-10-02] MEDS: PSEUDOEPHEDRINE ER 120 MG TABLET.ER. PO SCH ×2 (09:22→20:28)
[2018-10-02] MEDS: DOXYCYCLINE HYCLATE 100 MG TABLET PO SCH ×2 (09:22→20:28)
--- NOTE | 2018-10-02 09:35 | PDOC ---
PROGRESS NOTES Chief Complaint Chief Complaint Acute on chronic hypoxemic hypercapnic respiratory failure. Acute exacerbation of chronic obstructive pulmonary disease. Abnormal x-ray Tobacco dependence. Acute nonspecific bronchitis. History of Present Illness History of Present Illness SHe is a transfer out of ICU 10/02/18 after 2 or 3 days intubation. She has advanced COPD, on home O2, self-pay. As per Dtr. She would always get intubated whenever she gets admitted This is the shortest duration that she was intubated, she would usually be intubated more days On Doxy and Rocephin Still SOA - has bedside commode Plan: check echo, none recent PT OT 6 minute walk Can shift to by mouth Doxy-continue IV Rocephin Continue Solu-Medrol IV Not ready to DC yet, still SOA short distances Follow pulm recs Vitals Vitals Vital Signs Date Time Temp Pulse Resp B/P (MAP) Pulse Ox O2 Delivery O2 Flow Rate FiO2 10/02/18 07:02 96 Nasal Cannula 3.0 10/02/18 07:00 98.1 75 18 121/52 (75) 98.1 Physical Exam General: Alert, Oriented X3 Heart: Regular rate, Normal S1 Lungs: Clear Abdomen: Normal bowel sounds, Soft Extremities: No clubbing, No cyanosis Skin: No rashes, No breakdown Labs LABS Laboratory Tests Test 10/02/18 07:36 White Blood Count 10.8 x10^3/uL (4.0-11.0) Red Blood Count 4.19 x10^6/uL (3.50-5.40) Hemoglobin 11.9 g/dL (12.0-15.5) Hematocrit 37.8 % (36.0-47.0) Mean Corpuscular Volume 90 fL (79-100) Mean Corpuscular Hemoglobin 28 pg (25-35) Mean Corpuscular Hemoglobin Concent 32 g/dL (31-37) Red Cell Distribution Width 14.0 % (11.5-14.5) Platelet Count 337 x10^3/uL (140-400) Neutrophils (%) (Auto) 79 % (31-73) Lymphocytes (%) (Auto) 12 % (24-48) Monocytes (%) (Auto) 9 % (0-9) Eosinophils (%) (Auto) 0 % (0-3) Basophils (%) (Auto) 0 % (0-3) Neutrophils # (Auto) 8.5 x10^3uL (1.8-7.7) Lymphocytes # (Auto) 1.2 x10^3/uL (1.0-4.8) Monocytes # (Auto) 1.0 x10^3/uL (0.0-1.1) Eosinophils # (Auto) 0.0 x10^3/uL (0.0-0.7) Basophils # (Auto) 0.0 x10^3/uL (0.0-0.2) Sodium Level 145 mmol/L (136-145) Potassium Level 4.4 mmol/L (3.5-5.1) Chloride Level 104 mmol/L (98-107) Carbon Dioxide Level 40 mmol/L (21-32) Anion Gap 1 (6-14) Blood Urea Nitrogen 13 mg/dL (7-20) Creatinine 0.7 mg/dL (0.6-1.0) Estimated GFR (Cockcroft-Gault) 84.2 Glucose Level 107 mg/dL (70-99) Calcium Level 9.4 mg/dL (8.5-10.1) Review of Systems Review of Systems SOA, easily fatigued, no phlegm, no fever, no chest pain, no abdominal symptoms Assessment and Plan Assessmemt and Plan Problems Medical Problems: (1) Acute hypercapnic respiratory failure Status: Acute Comment Review of Relevant I have reviewed the following items heaven (where applicable) has been applied. Labs Laboratory Tests Test 09/30/18 09:40 10/02/18 07:36 O2 Saturation 96 % (92-99) Arterial Blood pH 7.35 (7.35-7.45) Arterial Blood pCO2 at Patient Temp 59 mmHg (35-46) Arterial Blood pO2 at Patient Temp 90 mmHg (65-108) Arterial Blood HCO3 32 mmol/L (21-28) Arterial Blood Base Excess 5 mmol/L (-3-3) FiO2 40 White Blood Count 10.8 x10^3/uL (4.0-11.0) Red Blood Count 4.19 x10^6/uL (3.50-5.40) Hemoglobin 11.9 g/dL (12.0-15.5) Hematocrit 37.8 % (36.0-47.0) Mean Corpuscular Volume 90 fL (79-100) Mean Corpuscular Hemoglobin 28 pg (25-35) Mean Corpuscular Hemoglobin Concent 32 g/dL (31-37) Red Cell Distribution Width 14.0 % (11.5-14.5) Platelet Count 337 x10^3/uL (140-400) Neutrophils (%) (Auto) 79 % (31-73) Lymphocytes (%) (Auto) 12 % (24-48) Monocytes (%) (Auto) 9 % (0-9) Eosinophils (%) (Auto) 0 % (0-3) Basophils (%) (Auto) 0 % (0-3) Neutrophils # (Auto) 8.5 x10^3uL (1.8-7.7) Lymphocytes # (Auto) 1.2 x10^3/uL (1.0-4.8) Monocytes # (Auto) 1.0 x10^3/uL (0.0-1.1) Eosinophils # (Auto) 0.0 x10^3/uL (0.0-0.7) Basophils # (Auto) 0.0 x10^3/uL (0.0-0.2) Sodium Level 145 mmol/L (136-145) Potassium Level 4.4 mmol/L (3.5-5.1) Chloride Level 104 mmol/L (98-107) Carbon Dioxide Level 40 mmol/L (21-32) Anion Gap 1 (6-14) Blood Urea Nitrogen 13 mg/dL (7-20) Creatinine 0.7 mg/dL (0.6-1.0) Estimated GFR (Cockcroft-Gault) 84.2 Glucose Level 107 mg/dL (70-99) Calcium Level 9.4 mg/dL (8.5-10.1) Laboratory Tests Test 10/02/18 07:36 White Blood Count 10.8 x10^3/uL (4.0-11.0) Red Blood Count 4.19 x10^6/uL (3.50-5.40) Hemoglobin 11.9 g/dL (12.0-15.5) Hematocrit 37.8 % (36.0-47.0) Mean Corpuscular Volume 90 fL (79-100) Mean Corpuscular Hemoglobin 28 pg (25-35) Mean Corpuscular Hemoglobin Concent 32 g/dL (31-37) Red Cell Distribution Width 14.0 % (11.5-14.5) Platelet Count 337 x10^3/uL (140-400) Neutrophils (%) (Auto) 79 % (31-73) Lymphocytes (%) (Auto) 12 % (24-48) Monocytes (%) (Auto) 9 % (0-9) Eosinophils (%) (Auto) 0 % (0-3) Basophils (%) (Auto) 0 % (0-3) Neutrophils # (Auto) 8.5 x10^3uL (1.8-7.7) Lymphocytes # (Auto) 1.2 x10^3/uL (1.0-4.8) Monocytes # (Auto) 1.0 x10^3/uL (0.0-1.1) Eosinophils # (Auto) 0.0 x10^3/uL (0.0-0.7) Basophils # (Auto) 0.0 x10^3/uL (0.0-0.2) Sodium Level 145 mmol/L (136-145) Potassium Level 4.4 mmol/L (3.5-5.1) Chloride Level 104 mmol/L (98-107) Carbon Dioxide Level 40 mmol/L (21-32) Anion Gap 1 (6-14) Blood Urea Nitrogen 13 mg/dL (7-20) Creatinine 0.7 mg/dL (0.6-1.0) Estimated GFR (Cockcroft-Gault) 84.2 Glucose Level 107 mg/dL (70-99) Calcium Level 9.4 mg/dL (8.5-10.1) Microbiology 09/28/18 Blood Culture - Final, Complete Medications Current Medications Ipratropium [place] (Atrovent) 0.5 mg 1X ONCE NEB Last administered on 09/28/18at 20:50; Start 09/28/18 at 20:30; Stop 09/28/18 at 20:40; Status DC Methylprednisolone Sodium Succinate (SOLU-Medrol 125MG VIAL) 125 mg 1X ONCE IV Last administered on 09/28/18at 20:30; Start 09/28/18 at 20:30; Stop 09/28/18 at 20:40; Status DC Albuterol Sulfate (Ventolin Neb Soln) 10 mg 1X ONCE CONT NEB Last administered on 09/28/18at 20:50; Start 09/28/18 at 20:30; Stop 09/28/18 at 20:40; Status DC Magnesium Sulfate 50 ml @ 25 mls/hr 1X ONCE IV Last administered on 09/28/18at 20:43; Start 09/28/18 at 20:30; Stop 09/28/18 at 22:29; Status DC Morphine Sulfate (Morphine Sulfate) 2 mg 1X ONCE IV Last administered on 09/29/18at 00:52; Start 09/28/18 at 21:30; Stop 09/28/18 at 21:31; Status DC Etomidate (Amidate) 20 mg STK-MED ONCE IV ; Start 09/29/18 at 00:10; Stop 09/29/18 at 00:11; Status DC Rocuronium [place] (Zemuron) 50 mg STK-MED ONCE .ROUTE ; Start 09/29/18 at 00:10; Stop 09/29/18 at 00:11; Status DC Sodium Chloride 1,000 ml @ 125 mls/hr Q8H IV Last administered on 09/29/18at 15:45; Start 09/29/18 at 00:30; Stop 09/30/18 at 00:29; Status DC Albuterol/ Ipratropium (Duoneb) 3 ml RTQID NEB Last administered on 09/29/18at 19:21; Start 09/29/18 at 08:00; Stop 09/30/18 at 07:59; Status DC Propofol 100 ml @ 0 mls/hr CONT PRN IV SEE PROTOCOL Last administered on 09/29/18at 02:01; Start 09/29/18 at 00:15; Stop 10/01/18 at 08:30; Status DC Midazolam HCl (Versed) 2 mg PRN Q30MIN PRN IV SEE COMMENTS.; Start 09/29/18 at 00:15; Stop 10/01/18 at 08:30; Status DC Propofol 50 ml @ 0.885 mls/ hr 1X ONCE IV Last administered on 09/29/18at 00:54; Start 09/29/18 at 01:00; Stop 10/01/18 at 09:06; Status DC Propofol 50 ml @ As Directed STK-MED ONCE IV ; Start 09/29/18 at 00:49; Stop 09/29/18 at 00:50; Status DC Ceftriaxone Sodium (Rocephin) 1 gm Q24H IVP Last administered on 10/01/18at 11:58; Start 09/29/18 at 12:00 Fentanyl (Duragesic 50mcg/ Hr Patch) 1 patch Q3DAYS TD Last administered on 09/29/18at 11:58; Start 09/29/18 at 12:00 Enoxaparin Sodium (Lovenox 40mg Syringe) 40 mg Q24H SQ Last administered on 10/01/18at 11:59; Start 09/29/18 at 12:00 Famotidine (Pepcid Vial) 20 mg BID IVP Last administered on 10/01/18at 20:34; Start 09/29/18 at 12:00; Stop 10/02/18 at 08:18; Status DC Fentanyl Citrate (Fentanyl 2ml Vial) 50 mcg 1X ONCE IM ; Start 09/29/18 at 11:45; Stop 09/29/18 at 11:57; Status DC Fentanyl Citrate (Fentanyl 2ml Vial) 50 mcg 1X ONCE IV Last administered on 09/29/18at 11:58; Start 09/29/18 at 12:00; Stop 09/29/18 at 12:01; Status DC Doxycycline Hyclate 100 mg/ Dextrose 100 ml @ 50 mls/hr Q12H IV Last administered on 10/02/18at 00:55; Start 09/29/18 at 13:00; Stop 10/02/18 at 08:18; Status DC Methylprednisolone Sodium Succinate (SOLU-Medrol 125MG VIAL) 60 mg BID IV Last administered on 09/30/18at 20:50; Start 09/29/18 at 21:00; Stop 10/01/18 at 06:33; Status DC Dexmedetomidine HCl 200 mcg/ Sodium Chloride 50 ml @ 0 mls/hr CONT PRN IV PER PROTOCOL Last administered on 09/30/18at 00:44; Start 09/29/18 at 15:15; Stop 10/02/18 at 08:18; Status DC Sodium Chloride 500 ml @ 500 mls/hr 1X PRN PRN IV SEE COMMENTS; Start 09/29/18 at 15:15 Atropine Sulfate (ATROPINE 0.5mg SYRINGE) 0.5 mg PRN Q5MIN PRN IV SEE COMMENTS; Start 09/29/18 at 15:15 Albuterol/ Ipratropium (Duoneb) 3 ml RTQID NEB Last administered on 10/02/18at 07:01; Start 09/30/18 at 09:00 Methylprednisolone Sodium Succinate (SOLU-Medrol 40MG VIAL) 40 mg BID IV Last administered on 10/02/18at 09:22; Start 10/01/18 at 09:00 Guaifenesin (Robitussin Dm) 10 ml PRN Q6HRS PRN PO COUGH; Start 10/02/18 at 08:30 Doxycycline Hyclate (Vibra-Tab) 100 mg BID PO Last administered on 10/02/18at 09 :22; Start 10/02/18 at 09:00 Non-Formulary Medication (Aclidinium [place] (Tudorza Pressair)) 400 mcg DAILY IH ; Start 10/02/18 at 09:00; Status UNV Non-Formulary Medication (Fexofenadine/ Pseudoephedrine (Rosalia-D 24 Hour Tablet)) 1 tab DAILY PO ; Start 10/02/18 at 09:00; Status UNV Non-Formulary Medication (Umeclidinium [place] (Incruse Ellipta)) 62.5 mcg DAILY IH ; Start 10/02/18 at 09:00; Status UNV Cetirizine HCl (ZyrTEC) 10 mg DAILY PO Last administered on 10/02/18at 09:22; Start 10/02/18 at 09:00 Pseudoephedrine HCl (Sudafed 12-Hour) 120 mg BID PO Last administered on 10/02/18at 09:22; Start 10/02/18 at 09:00 Active Scripts Active Reported Incruse Ellipta (Umeclidinium [place]) 62.5 Mcg Blst.w.dev 62.5 Mcg IH DAILY Breo Ellipta 100-25 Mcg Inh (Fluticasone/Vilanterol) 1 Each Aer.pow.ba 1 Puff IH DAILY Ventolin Hfa Inhaler (Albuterol Sulfate) 18 Gm Hfa.aer.ad 2 Puff INH Q4HRS Azithromycin Tablet (Azithromycin) 250 Mg Tablet 250 Mg PO DAILY Tudorza Pressair (Aclidinium [place]) 400 Mcg Aer.pow.ba 400 Mcg IH DAILY Prednisone 20 Mg Tablet 1 Tab PO DAILY Rosalia-D 24 Hour Tablet (Fexofenadine/Pseudoephedrine) 1 Each Tab.er.24h 1 Tab PO DAILY Vitals/I & O Vital Sign - Last 24 Hours 10/01/18 10/01/18 10/01/18 10/01/18 10:39 11:00 13:02 13:08 Temp 98.3 98.3 98.3 98.3 Pulse 84 84 Resp 20 20 B/P (MAP) 125/70 (88) 125/70 (88) Pulse Ox 96 94 94 O2 Delivery Nasal Cannula Nasal Cannula Nasal Cannula Nasal Cannula O2 Flow Rate 3.0 3.0 3.0 3.0 10/01/18 10/01/18 10/01/18 10/01/18 15:00 16:17 19:00 19:50 Temp 98.3 98.0 98.3 98.0 Pulse 88 86 Resp 20 20 B/P (MAP) 132/68 (89) 118/58 (78) Pulse Ox 94 95 95 96 O2 Delivery Nasal Cannula Nasal Cannula Nasal Cannula Nasal Cannula O2 Flow Rate 3.0 3.0 2.0 3.0 10/01/18 10/01/18 10/02/18 10/02/18 20:00 23:00 03:00 07:00 Temp 98.4 98.2 98.1 98.4 98.2 98.1 Pulse 80 83 75 Resp 18 36 18 B/P (MAP) 123/57 (79) 127/61 (83) 121/52 (75) Pulse Ox 95 97 94 O2 Delivery Nasal Cannula Nasal Cannula Nasal Cannula Nasal Cannula O2 Flow Rate 3.0 3.0 3.0 3.0 10/02/18 07:02 Pulse Ox 96 O2 Delivery Nasal Cannula O2 Flow Rate 3.0 Intake and Output 10/01/18 10/01/18 10/02/18 15:00 23:00 07:00 Intake Total 450 ml 600 ml 260 ml Output Total 325 ml Balance 125 ml 600 ml 260 ml IKER NASSAR MD October 02, 2018 09:35
[2018-10-02 11:00] VITALS: BP 121/69
[2018-10-02] MEDS: cefTRIAXone IV Push 1 GM VIAL. IVP SCH (13:56)
[2018-10-02] MEDS: ENOXAPARIN 40 MG/0.4 ML SYRINGE. SQ SCH (13:59)
[2018-10-02 15:00] VITALS: BP 109/73
--- NOTE | 2018-10-02 15:24 | PDOC ---
PULMONARY PROGRESS NOTES Subjective extubated 09/30, NC 02 NOT MORE SOA Vitals Vital Signs Date Time Temp Pulse Resp B/P (MAP) Pulse Ox O2 Delivery O2 Flow Rate FiO2 10/02/18 15:00 97.7 91 20 109/73 (85) 93 Nasal Cannula 3.0 97.7 Comments General: Alert Lungs: Clear Cardiovascular: S1, S2 Abdomen: Soft, Non-tender, Other (no mass) Neuro Exam: Alert Extremities: No Edema Skin: Warm Labs Laboratory Tests Test 10/02/18 07:36 White Blood Count 10.8 x10^3/uL (4.0-11.0) Red Blood Count 4.19 x10^6/uL (3.50-5.40) Hemoglobin 11.9 g/dL (12.0-15.5) Hematocrit 37.8 % (36.0-47.0) Mean Corpuscular Volume 90 fL (79-100) Mean Corpuscular Hemoglobin 28 pg (25-35) Mean Corpuscular Hemoglobin Concent 32 g/dL (31-37) Red Cell Distribution Width 14.0 % (11.5-14.5) Platelet Count 337 x10^3/uL (140-400) Neutrophils (%) (Auto) 79 % (31-73) Lymphocytes (%) (Auto) 12 % (24-48) Monocytes (%) (Auto) 9 % (0-9) Eosinophils (%) (Auto) 0 % (0-3) Basophils (%) (Auto) 0 % (0-3) Neutrophils # (Auto) 8.5 x10^3uL (1.8-7.7) Lymphocytes # (Auto) 1.2 x10^3/uL (1.0-4.8) Monocytes # (Auto) 1.0 x10^3/uL (0.0-1.1) Eosinophils # (Auto) 0.0 x10^3/uL (0.0-0.7) Basophils # (Auto) 0.0 x10^3/uL (0.0-0.2) Sodium Level 145 mmol/L (136-145) Potassium Level 4.4 mmol/L (3.5-5.1) Chloride Level 104 mmol/L (98-107) Carbon Dioxide Level 40 mmol/L (21-32) Anion Gap 1 (6-14) Blood Urea Nitrogen 13 mg/dL (7-20) Creatinine 0.7 mg/dL (0.6-1.0) Estimated GFR (Cockcroft-Gault) 84.2 Glucose Level 107 mg/dL (70-99) Calcium Level 9.4 mg/dL (8.5-10.1) Laboratory Tests Test 10/02/18 07:36 White Blood Count 10.8 x10^3/uL (4.0-11.0) Red Blood Count 4.19 x10^6/uL (3.50-5.40) Hemoglobin 11.9 g/dL (12.0-15.5) Hematocrit 37.8 % (36.0-47.0) Mean Corpuscular Volume 90 fL (79-100) Mean Corpuscular Hemoglobin 28 pg (25-35) Mean Corpuscular Hemoglobin Concent 32 g/dL (31-37) Red Cell Distribution Width 14.0 % (11.5-14.5) Platelet Count 337 x10^3/uL (140-400) Neutrophils (%) (Auto) 79 % (31-73) Lymphocytes (%) (Auto) 12 % (24-48) Monocytes (%) (Auto) 9 % (0-9) Eosinophils (%) (Auto) 0 % (0-3) Basophils (%) (Auto) 0 % (0-3) Neutrophils # (Auto) 8.5 x10^3uL (1.8-7.7) Lymphocytes # (Auto) 1.2 x10^3/uL (1.0-4.8) Monocytes # (Auto) 1.0 x10^3/uL (0.0-1.1) Eosinophils # (Auto) 0.0 x10^3/uL (0.0-0.7) Basophils # (Auto) 0.0 x10^3/uL (0.0-0.2) Sodium Level 145 mmol/L (136-145) Potassium Level 4.4 mmol/L (3.5-5.1) Chloride Level 104 mmol/L (98-107) Carbon Dioxide Level 40 mmol/L (21-32) Anion Gap 1 (6-14) Blood Urea Nitrogen 13 mg/dL (7-20) Creatinine 0.7 mg/dL (0.6-1.0) Estimated GFR (Cockcroft-Gault) 84.2 Glucose Level 107 mg/dL (70-99) Calcium Level 9.4 mg/dL (8.5-10.1) Medications Active Scripts Medications Dose Route/Sig Max Daily Dose Days Date Category Incruse Ellipta (Umeclidinium [place]) 62.5 Mcg Blst.w.dev 62.5 Mcg IH DAILY 07/11/17 Reported Breo Ellipta 100-25 Mcg Inh (Fluticasone/Vilanterol) 1 Each Aer.pow.ba 1 Puff IH DAILY 07/11/17 Reported Ventolin Hfa Inhaler (Albuterol Sulfate) 18 Gm Hfa.aer.ad 2 Puff INH Q4HRS 07/11/17 Reported Azithromycin Tablet (Azithromycin) 250 Mg Tablet 250 Mg PO DAILY 07/11/17 Reported Tudorza Pressair (Aclidinium [place]) 400 Mcg Aer.pow.ba 400 Mcg IH DAILY 07/11/17 Reported Prednisone 20 Mg Tablet 1 Tab PO DAILY 07/11/17 Reported Rosalia-D 24 Hour Tablet (Fexofenadine/Pseudoephedrine) 1 Each Tab.er.24h 1 Tab PO DAILY 07/11/17 Reported Impression . IMPRESSION: 1. Acute on chronic hypoxemic hypercapnic respiratory failure. 2. Acute exacerbation of chronic obstructive pulmonary disease. 3. Abnormal x-ray 4. Tobacco dependence. 5. Acute nonspecific bronchitis. CT CHEST IMPRESSION: Small bilateral lung nodules. Recommend a follow-up noncontrast chest CT in 3 months as per Fleischner guidelines. Plan . DOING BETTER REPEAT CT CHEST IN 2 MONTHS TAPER PRED HOME SOON ANDREW BLACKWOOD MD October 02, 2018 15:24
[2018-10-02 19:00] VITALS: BP 107/55
[2018-10-02 23:01] VITALS: BP 122/53
[2018-10-03 03:04] VITALS: BP 129/59
[2018-10-03 07:00] VITALS: BP 121/64
[2018-10-03] MEDS: IPRATRPIUM/ALBUTEROL 0.5/2.5MG 3 ML NEBU. NEB SCH (07:50)
[2018-10-03] MEDS: methylPREDNISolone SOD SUCC PF 40 MG/ML VIAL. IV SCH (08:35)
[2018-10-03] MEDS: DOXYCYCLINE HYCLATE 100 MG TABLET PO SCH (08:36)
[2018-10-03] MEDS: CETIRIZINE HCL 10 MG TABLET. PO SCH (08:36)
[2018-10-03] MEDS: PSEUDOEPHEDRINE ER 120 MG TABLET.ER. PO SCH (08:36)
[2018-10-03] MEDS ORDERED: GUAI5SYR PO (10:16)
[2018-10-03] MEDS ORDERED: DOXY100T PO (10:16)
[2018-10-03] MEDS ORDERED: VENTOLIN HFA18 GM INH (10:16)
[2018-10-03] MEDS ORDERED: PSEU120T12 PO (10:16)
--- NOTE | 2018-10-03 10:18 | PDOC3 ---
Discharge Summary Visit Information Date of Admission: September 29, 2018 Date of Discharge: October 03, 2018 Admitting Diagnosis Comment: Acute on chronic hypoxemic hypercapnic respiratory failure. Acute exacerbation of chronic obstructive pulmonary disease. Abnormal x-ray Tobacco dependence. Acute nonspecific bronchitis. Final Diagnosis Problems Medical Problems: (1) Acute hypercapnic respiratory failure Status: Acute Brief Hospital Course Allergies Allergies Coded Allergies Type Severity Reaction Last Updated Verified No Known Drug Allergies 07/11/17 No Vital Signs Vital Signs Date Time Temp Pulse Resp B/P (MAP) Pulse Ox O2 Delivery O2 Flow Rate FiO2 10/03/18 08:00 Nasal Cannula 3.0 10/03/18 07:52 98 10/03/18 07:00 98.0 73 20 121/64 (83) 98.0 Lab Results Laboratory Tests Test 10/02/18 07:36 White Blood Count 10.8 x10^3/uL (4.0-11.0) Red Blood Count 4.19 x10^6/uL (3.50-5.40) Hemoglobin 11.9 g/dL (12.0-15.5) Hematocrit 37.8 % (36.0-47.0) Mean Corpuscular Volume 90 fL (79-100) Mean Corpuscular Hemoglobin 28 pg (25-35) Mean Corpuscular Hemoglobin Concent 32 g/dL (31-37) Red Cell Distribution Width 14.0 % (11.5-14.5) Platelet Count 337 x10^3/uL (140-400) Neutrophils (%) (Auto) 79 % (31-73) Lymphocytes (%) (Auto) 12 % (24-48) Monocytes (%) (Auto) 9 % (0-9) Eosinophils (%) (Auto) 0 % (0-3) Basophils (%) (Auto) 0 % (0-3) Neutrophils # (Auto) 8.5 x10^3uL (1.8-7.7) Lymphocytes # (Auto) 1.2 x10^3/uL (1.0-4.8) Monocytes # (Auto) 1.0 x10^3/uL (0.0-1.1) Eosinophils # (Auto) 0.0 x10^3/uL (0.0-0.7) Basophils # (Auto) 0.0 x10^3/uL (0.0-0.2) Sodium Level 145 mmol/L (136-145) Potassium Level 4.4 mmol/L (3.5-5.1) Chloride Level 104 mmol/L (98-107) Carbon Dioxide Level 40 mmol/L (21-32) Anion Gap 1 (6-14) Blood Urea Nitrogen 13 mg/dL (7-20) Creatinine 0.7 mg/dL (0.6-1.0) Estimated GFR (Cockcroft-Gault) 84.2 Glucose Level 107 mg/dL (70-99) Calcium Level 9.4 mg/dL (8.5-10.1) Brief Hospital Course Ms. Velez is a 63 old female who is an ex-smoker, admitted again for COPD exacerbation, needing intubation for only 2 days. As per Dtr. She would always get Intubated when admitted. This is the shortest time she was intubated. Pulmonary on board, okay for Doxy by mouth, I have Rx tapering prednisone. Albuterol inhaler, cough medicine and Sudafed. consults performed pulmonary Procedures performed intubation 2-3 days Discharge disposition home with daughter Discharge Information Condition at Discharge: Improved, Stable Follow Up: Weeks (pulmo 4 weeks) Disposition/Orders: D/C to Home Scheduled Aclidinium [place] (Tudorza Pressair) 400 Mcg Aer.pow.ba, 400 MCG IH DAILY, (Reported) Entered as Reported by: JESSICA MCKEON on 07/11/171344 Last Action: Converted on 10/02/18817 by IKER NASSAR Albuterol Sulfate (Ventolin Hfa Inhaler) 18 Gm Hfa.aer.ad, 2 PUFF INH Q4HRS for FOR ASTHMA MDD 1, #1 Ref 0 Prescribed by: IKER NASSAR on 10/03/18 1016 Doxycycline Hyclate (Doxycycline Hyclate) 100 Mg Tablet, 100 MG PO BID for copd exacerb MDD 1 for 7 Days, #14 Prescribed by: IKER NASSAR on 10/03/18 1016 Fluticasone/Vilanterol (Breo Ellipta 100-25 Mcg Inh) 1 Each Aer.pow.ba, 1 PUFF IH DAILY, (Reported) Entered as Reported by: JESSICA MCKEON on 07/11/171344 Last Action: HELD on 10/02/18817 by IKER NASSAR Pseudoephedrine Hcl (Sinus 12-Hour) 120 Mg Tablet.er, 120 MG PO BID for congestion MDD 1 for 7 Days, #14 Prescribed by: IKER NASSAR on 10/03/18 1016 Umeclidinium [place] (Incruse Ellipta) 62.5 Mcg Blst.w.dev, 62.5 MCG IH DAILY, (Reported) Entered as Reported by: JESSICA MCKEON on 07/11/171344 Last Action: Converted on 10/02/18817 by IKER NASSAR Scheduled PRN Guaifenesin/Dextromethorphan (Guaifenesin Dm Syrup) 5 Ml Syrup, 10 ML PO PRN Q6HRS PRN for COUGH MDD 1 for 7 Days Prescribed by: IKER NASSAR on 10/03/18 1016 Discontinued Medications Azithromycin (Azithromycin Tablet) 250 Mg Tablet, 250 MG PO DAILY for ANTI- BIOTIC, Ref 0 (Reported) Entered as Reported by: JESSICA MCKEON on 07/11/171344 Last Action: HELD on 10/02/18817 by IKER NASSAR Fexofenadine/Pseudoephedrine (Rosalia-D 24 Hour Tablet) 1 Each Tab.er.24h, 1 TAB PO DAILY, #30 Ref 2 (Reported) Entered as Reported by: JESSICA MCKEON on 07/11/171344 Last Action: Converted on 10/02/18817 by IKER NASSAR Prednisone (Prednisone) 20 Mg Tablet, 1 TAB PO DAILY, #5 (Reported) Entered as Reported by: JESSICA MCKEON on 07/11/171344 Last Action: HELD on 10/02/18817 by IKER SANCHEZ MD October 03, 2018 10:18
--- NOTE | 2018-10-03 10:27 | PDOC ---
PULMONARY PROGRESS NOTES Subjective extubated 09/30, NC 02 NOT MORE SOA Vitals Vital Signs Date Time Temp Pulse Resp B/P (MAP) Pulse Ox O2 Delivery O2 Flow Rate FiO2 10/03/18 08:00 Nasal Cannula 3.0 10/03/18 07:52 98 10/03/18 07:00 98.0 73 20 121/64 (83) 98.0 Comments General: Alert Lungs: Clear Cardiovascular: S1, S2 Abdomen: Soft, Non-tender, Other (no mass) Neuro Exam: Alert Extremities: No Edema Skin: Warm Labs Laboratory Tests Test 10/02/18 07:36 White Blood Count 10.8 x10^3/uL (4.0-11.0) Red Blood Count 4.19 x10^6/uL (3.50-5.40) Hemoglobin 11.9 g/dL (12.0-15.5) Hematocrit 37.8 % (36.0-47.0) Mean Corpuscular Volume 90 fL (79-100) Mean Corpuscular Hemoglobin 28 pg (25-35) Mean Corpuscular Hemoglobin Concent 32 g/dL (31-37) Red Cell Distribution Width 14.0 % (11.5-14.5) Platelet Count 337 x10^3/uL (140-400) Neutrophils (%) (Auto) 79 % (31-73) Lymphocytes (%) (Auto) 12 % (24-48) Monocytes (%) (Auto) 9 % (0-9) Eosinophils (%) (Auto) 0 % (0-3) Basophils (%) (Auto) 0 % (0-3) Neutrophils # (Auto) 8.5 x10^3uL (1.8-7.7) Lymphocytes # (Auto) 1.2 x10^3/uL (1.0-4.8) Monocytes # (Auto) 1.0 x10^3/uL (0.0-1.1) Eosinophils # (Auto) 0.0 x10^3/uL (0.0-0.7) Basophils # (Auto) 0.0 x10^3/uL (0.0-0.2) Sodium Level 145 mmol/L (136-145) Potassium Level 4.4 mmol/L (3.5-5.1) Chloride Level 104 mmol/L (98-107) Carbon Dioxide Level 40 mmol/L (21-32) Anion Gap 1 (6-14) Blood Urea Nitrogen 13 mg/dL (7-20) Creatinine 0.7 mg/dL (0.6-1.0) Estimated GFR (Cockcroft-Gault) 84.2 Glucose Level 107 mg/dL (70-99) Calcium Level 9.4 mg/dL (8.5-10.1) Medications Active Scripts Medications Dose Route/Sig Max Daily Dose Days Date Category Incruse Ellipta (Umeclidinium [place]) 62.5 Mcg Blst.w.dev 62.5 Mcg IH DAILY 07/11/17 Reported Breo Ellipta 100-25 Mcg Inh (Fluticasone/Vilanterol) 1 Each Aer.pow.ba 1 Puff IH DAILY 07/11/17 Reported Ventolin Hfa Inhaler (Albuterol Sulfate) 18 Gm Hfa.aer.ad 2 Puff INH Q4HRS 07/11/17 Reported Azithromycin Tablet (Azithromycin) 250 Mg Tablet 250 Mg PO DAILY 07/11/17 Reported Tudorza Pressair (Aclidinium [place]) 400 Mcg Aer.pow.ba 400 Mcg IH DAILY 07/11/17 Reported Prednisone 20 Mg Tablet 1 Tab PO DAILY 07/11/17 Reported Rosalia-D 24 Hour Tablet (Fexofenadine/Pseudoephedrine) 1 Each Tab.er.24h 1 Tab PO DAILY 07/11/[address] CHEST FINDINGS: No enlarged thoracic lymphadenopathy is evident. No focal aneurysmal dilatation of thoracic aorta is seen. Heart size is normal. No pericardial effusion is seen. Bilateral emphysema is seen with an upper lung zone predominance. There are small approximate 1 cm subpleural lung nodules within the posterior aspect of the right lower lobe. There is a subpleural nodule within the medial posterior aspect of the superior segment left lower lobe measuring 8 mm in size. These most likely represent atelectasis. Small focus of atelectasis is seen involving the posterior medial aspect of the basal segment of the left lower lobe. No lung mass or lung consolidation is seen. No pleural effusion or pneumothorax is evident. The proximal bronchial tree is patent. No lytic process is seen. No adrenal mass is evident. IMPRESSION: Small bilateral lung nodules. Recommend a follow-up noncontrast chest CT in 3 months as per Fleischner guidelines. Emphysema. No lung consolidation or pleural effusion. Electronically signed by: Harris Diaz MD (10/01/2018 10:41 AM) [facility] Impression . IMPRESSION: 1. Acute on chronic hypoxemic hypercapnic respiratory failure. 2. Acute exacerbation of chronic obstructive pulmonary disease. 3. Abnormal x-ray / ct chest with small sub-pleural nodules RLL 4. Tobacco dependence. 5. Acute nonspecific bronchitis. CT CHEST IMPRESSION: Small bilateral lung nodules. Recommend a follow-up noncontrast chest CT in 3 months as per Fleischner guidelines. Plan . DOING BETTER REPEAT CT CHEST IN 2 MONTHS TAPER PRED HOME TODAY PT TO F/U WITH DR BLACKWOOD IN 2 MONTHS / CT CHEST D/W XENA FLANAGAN MD October 03, 2018 10:27
[2018-10-03 11:01] VITALS: BP 125/66
--- NOTE | 2018-10-03 11:10 | NUR ---
Discharge teaching provided written and verbal to pt,understanding verbalized. Pt's ride is on the way.
--- NOTE | 2018-10-03 11:18 | CARD ---
MR#: [id number] Date of Study: 10/03/2018 Ordering Physician: IKER NASSAR, Referring Physician: IKER NASSAR Tech: Zainab Waggoner [facility] APPROVED REPORT EXAM: Two-dimensional and M-mode echocardiogram with Doppler and color Doppler. Other Information Quality : Fair INDICATION COPD LV Function:Systolic 2D DIMENSIONS RVDd2.3 (2.9-3.5cm)Left Atrium(2D)2.8 (1.6-4.0cm) IVSd0.9 (0.7-1.1cm)Aortic Root(2D)2.9 (2.0-3.7cm) LVDd3.9 (3.9-5.9cm)LVOT Diameter2.0 (1.8-2.4cm) PWd0.9 (0.7-1.1cm)LVDs2.6 (2.5-4.0cm) FS (%) 32.7 %SV40.5 ml LVEF(%)60.0 (>50%) Aortic Valve AoV Peak Rashawn.363.6cm/sAoV VTI69.2cm AO Peak GR.52.9mmHgLVOT Peak Rashawn.136.7cm/s AO Mean GR.28mmHgAVA (VMAX)1.17cm2 SIERRA (VTI)1.30cm2 Mitral Valve MV E Rmqoeebz12.3cm/sMV DECEL MBNI152vn MV A Rotdeaxg203.8cm/sE/A Ratio0.8 Tricuspid Valve TR P. Kjtuipwv881zy/sRAP HSTGCABS2fyUg TR Peak Gr.42qjXqMUZW45fcGt Pulmonary Vein S1 Qkstgukh81.4cm/sD2 Veiyzpyc37.2cm/s LEFT VENTRICLE The left ventricle is normal size. There is normal left ventricular wall thickness. The left ventricu lar systolic function is normal. The Ejection Fraction is 55-60%. There is normal LV segmental wall m otion. Transmitral Doppler flow pattern is Grade I-abnormal relaxation pattern. RIGHT VENTRICLE The right ventricle is normal size. The right ventricular systolic function is normal. ATRIA The left atrium size is normal. The right atrium size is normal. The interatrial septum is intact wit h no evidence for an atrial septal defect or patent foramen ovale as noted on 2-D or Doppler imaging. AORTIC VALVE The aortic valve is not well visualized but moderately thickened and appears to have some decreased o pening. Doppler and Color Flow revealed no significant aortic regurgitation. Calculated aortic valve area is 1.3 cm2 with maximum pressure gradient of 53 mmHg and mean pressure gradient of 28 mmHg. Dopp ler and color-flow analysis revealed moderate aortic stenosis. MITRAL VALVE The mitral valve is calcified but opens well. Mitral annular calcification is mild. There is no evide nce of mitral valve prolapse. There is no mitral valve stenosis. Doppler and Color-flow revealed trac e mitral regurgitation. TRICUSPID VALVE The tricuspid valve is normal in structure and function. Doppler and Color Flow revealed trace tricus pid regurgitation. There is mild pulmonary hypertension. The PA pressure was estimated at 36 mmHg. Th ere is no tricuspid valve stenosis. PULMONIC VALVE The pulmonic valve is not well visualized. Doppler and Color Flow revealed no pulmonic valvular regur gitation. There is no pulmonic valvular stenosis. GREAT VESSELS The aortic root is normal in size. The ascending aorta is not well seen. The IVC is normal in size an d collapses >50% with inspiration. PERICARDIAL EFFUSION There is no evidence of significant pericardial effusion. Critical Notification Critical Value: No <Conclusion> The left ventricular systolic function is normal. The Ejection Fraction is 55-60%. There is normal LV segmental wall motion. Transmitral Doppler flow pattern is Grade I-abnormal relaxation pattern. Moderate aortic stenosis. Trace mitral regurgitation. Trace tricuspid regurgitation. The PA pressure was estimated at 36 mmHg. There is no evidence of significant pericardial effusion. Signed by : Jatin Rich, Electronically Approved : 10/03/2018 11:17:50
--- NOTE | 2018-10-03 11:45 | NUR ---
Pt dismissed to home with all belongings accompanied by her ex . Transported to exit per w/c at 1145.
== END 2018-10-03 11:45 | disposition home or self-care (01) | DRG 208 ==
LOC: ER 20:27 → 1 WEST ICU 09-29 00:14 → 5 NORTH 10-01 10:14
PROVIDERS: ADMIT Internal Medicine; ATTEND Internal Medicine
PROC: 5A09357 Assistance with Respiratory Ventilation, Less than 24 Consecutive Hours, Continuous Positive Airway Pressure (ICD-10-PCS; 2018-09-28)
PROC: 5A1945Z Respiratory Ventilation, 24-96 Consecutive Hours (ICD-10-PCS; principal; 2018-09-29)
PROC: 0BH17EZ Insertion of Endotracheal Airway into Trachea, Via Natural or Artificial Opening (ICD-10-PCS; 2018-09-29)
PROC: 5A09357 Assistance with Respiratory Ventilation, Less than 24 Consecutive Hours, Continuous Positive Airway Pressure (ICD-10-PCS; 2018-09-30)
DX: J96.21 Acute and chronic respiratory failure with hypoxia (principal); J20.9 Acute bronchitis, unspecified; J96.22 Acute and chronic respiratory failure with hypercapnia; J43.9 Emphysema, unspecified; F17.200 Nicotine dependence, unspecified, uncomplicated; I50.9 Heart failure, unspecified; Z82.49 Family history of ischemic heart disease and other diseases of the circulatory system; Z99.81 Dependence on supplemental oxygen
CPT/HCPCS: 31500; 36415; 36600; 71045; 71250; 74018; 80048; 80053; 81001; 82805; 83880; 84484; 85007; 85025; 85379; 87040; 87077; 87205; 87641; 93005; 93306; 94003; 94640; 94644; 94660; 94760; 96365; 96366; 96375; G0238; J0696; J1650; J2270; J2704; J2920; J2930; J3010; J3475; J3490; J7030; J7613; J7620; J7644; 97530; 97535; 99291-25

== ENCOUNTER 2018-11-14 16:07 | Inpatient (IN) | payer MEDICAID, OTHER ==
[~2018-11-14] VITALS: Ht 162.6 cm; Wt 75.8 kg
[2018-11-14] VITALS (10 sets, daily range): BP systolic 73–97; BP diastolic 44–66
[~2018-11-14 16:07] MED LIST changes: +DOXY100T PO; +GUAI5SYR PO; +PSEU120T12 PO
[2018-11-14] MEDS ORDERED: methylPREDNISolone SOD SUCC PF 125 MG/2 ML VIAL. IV ONE (16:45)
[2018-11-14] MEDS ORDERED: IPRATRPIUM/ALBUTEROL 0.5/2.5MG 3 ML NEBU. NEB ONE (16:45)
--- NOTE | 2018-11-14 16:48 | PHYS DOC ---
Past Medical History Past Medical History: Asthma, Bronchitis, CHF, COPD Past Surgical History: No Surgical History Additional Past Surgical Histo: UNKNOWN Alcohol Use: None Drug Use: None Adult General Chief Complaint Chief Complaint: ALTERED MENTAL STATUS [facility] HPI Patient is a 63 year old male smoker with a history of COPD, chronic bronchitis and congestive heart failure with history of chronic respiratory failure requiring intubation presents with decreased mental status and confusion. Sympt oms gradually began the past couple of days per EMS report. Patient's history is limited as the patient is alert and oriented to name. Answer 1-2 word sentences before nodding off. [] Review of Systems Review of Systems ROS PER HPI All other systems were reviewed and found to be within normal limits, except as documented in this note. Allergies Allergies Allergies Coded Allergies Type Severity Reaction Last Updated Verified No Known Drug Allergies 07/11/17 No Physical Exam Physical Exam Constitutional: Decreased LOC, alerts to verbal stimulation. [] HENT: Normocephalic, atraumatic, bilateral external ears normal. [] Eyes: PERRLA, EOMI, conjunctiva normal. [] Neck: Normal range of motion, no tenderness, supple. [] Cardiovascular:Heart rate regular rhythm, no murmur [] Lungs & Thorax: Respirations nonlabored, diminished shallow respiration bilaterally. Coarse breath sounds throughout [] Abdomen: Bowel sounds normal, soft, no tenderness. [] Extremities: No tenderness. [] Neurologic: Somnolent, moves all 4 extremities. [] Current Patient Data Vital Signs Vital Signs Date Time Temp Pulse Resp B/P (MAP) Pulse Ox O2 Delivery O2 Flow Rate FiO2 11/14/18 16:07 98.3 79 18 125/66 (85) 97 Nasal Cannula 3.0 98.3 Lab Values Laboratory Tests Test 11/14/18 16:14 11/14/18 16:15 O2 Saturation 97 % (92-99) Arterial Blood pH 7.24 (7.35-7.45) L Arterial Blood pCO2 at Patient Temp 116 mmHg (35-46) *H Arterial Blood pO2 at Patient Temp 109 mmHg (65-108) H Arterial Blood HCO3 49 mmol/L (21-28) H Arterial Blood Base Excess 16 mmol/L (-3-3) H FiO2 100 % nrb White Blood Count 9.0 x10^3/uL (4.0-11.0) Red Blood Count 4.23 x10^6/uL (3.50-5.40) Hemoglobin 12.5 g/dL (12.0-15.5) Hematocrit 38.2 % (36.0-47.0) Mean Corpuscular Volume 90 fL (79-100) Mean Corpuscular Hemoglobin 30 pg (25-35) Mean Corpuscular Hemoglobin Concent 33 g/dL (31-37) Red Cell Distribution Width 14.4 % (11.5-14.5) Platelet Count 321 x10^3/uL (140-400) Neutrophils (%) (Auto) 77 % (31-73) H Lymphocytes (%) (Auto) 13 % (24-48) L Monocytes (%) (Auto) 8 % (0-9) Eosinophils (%) (Auto) 1 % (0-3) Basophils (%) (Auto) 1 % (0-3) Neutrophils # (Auto) 7.0 x10^3uL (1.8-7.7) Lymphocytes # (Auto) 1.2 x10^3/uL (1.0-4.8) Monocytes # (Auto) 0.7 x10^3/uL (0.0-1.1) Eosinophils # (Auto) 0.1 x10^3/uL (0.0-0.7) Basophils # (Auto) 0.1 x10^3/uL (0.0-0.2) Prothrombin Time 11.3 SEC (11.7-14.0) L Prothrombin Time INR 0.9 (0.8-1.1) PTT 25 SEC (24-38) Sodium Level 141 mmol/L (136-145) Potassium Level 4.9 mmol/L (3.5-5.1) Chloride Level 97 mmol/L (98-107) L Carbon Dioxide Level 44 mmol/L (21-32) H Anion Gap 0 (6-14) L Blood Urea Nitrogen 13 mg/dL (7-20) Creatinine 0.6 mg/dL (0.6-1.0) Estimated GFR (Cockcroft-Gault) 100.6 BUN/Creatinine Ratio 22 (6-20) H Glucose Level 101 mg/dL (70-99) H Lactic Acid Level 0.3 mmol/L (0.4-2.0) L Calcium Level 9.0 mg/dL (8.5-10.1) Magnesium Level 2.2 mg/dL (1.8-2.4) Total Bilirubin 0.3 mg/dL (0.2-1.0) Aspartate Amino Transferase (AST) 15 U/L (15-37) Alanine Aminotransferase (ALT) 23 U/L (14-59) Alkaline Phosphatase 43 U/L (46-116) L Ammonia 24 mcmol/L (11-34) Troponin I Quantitative 0.020 ng/mL (0.000-0.055) AK-Mmf-A-Type Natriuretic Peptide 300 pg/mL (0-124) H Total Protein 6.1 g/dL (6.4-8.2) L Albumin 3.4 g/dL (3.4-5.0) Albumin/Globulin Ratio 1.3 (1.0-1.7) Ethyl Alcohol Level < 10 mg/dL (0-10) Laboratory Tests 11/14/18 16:15 Laboratory Tests 11/14/18 16:15 EKG EKG [EKG: Normal sinus rhythm, rate 78, no acute ST-T wave changes, QTC 428.] Radiology/Procedures Radiology/Procedures [CXR: Increased interstitial lung markings, COPD pattern per radiology report] Course & Med Decision Making Course & Med Decision Making Pertinent Labs and Imaging studies reviewed. (See chart for details) [Patient acute on chronic respiratory failure with hypercapnia and hypoxia with worsening. Patient intubated after being placed on BIPAP. Steroids, abx, breathing tomorrow AM. ] Dragon Disclaimer Dragon Disclaimer This electronic medical record was generated, in whole or in part, using a voice recognition dictation system. Departure Departure Impression: Primary Impression: Acute on chronic respiratory failure Additional Impression: COPD (chronic obstructive pulmonary disease) Disposition: ADMITTED INPATIENT Condition: GUARDED Referrals: UNKNOWN PCP NAME (PCP) Problem Qualifiers JACOB VAZQUEZ DO Nov 14, 2018 16:48
[2018-11-14 16:50] LABS: BASO # 0.1 x10^3/uL (0.0-0.2); BASO % 1 % (0-3); EOS # 0.1 x10^3/uL (0.0-0.7); EOS % 1 % (0-3); HEMATOCRIT 38.2 % (36.0-47.0); HEMOGLOBIN 12.5 g/dL (12.0-15.5); LYMPH # 1.2 x10^3/uL (1.0-4.8); LYMPH % 13 % (24-48); MEAN CORPUSCULAR HEMOGLOBIN 30 pg (25-35); MEAN CORPUSCULAR HGB CONC 33 g/dL (31-37); MEAN CORPUSCULAR VOLUME 90 fL (79-100); MONO # 0.7 x10^3/uL (0.0-1.1); MONO % 8 % (0-9); NEUT % 77 % (31-73); PLATELET COUNT 321 x10^3/uL (140-400); RED BLOOD COUNT 4.23 x10^6/uL (3.50-5.40); RED CELL DISTRIBUTION WIDTH 14.4 % (11.5-14.5)
--- NOTE | 2018-11-14 16:54 | RAD ---
CHEST AP ONLY History: Cough Comparison: September 29, 2018 Findings: Single view of the chest is submitted. There is again suspected emphysema. There is some reticular opacity at the left lung base more apparent on this exam, other interstitial and reticular opacity on the right fairly similar. There is no significant pleural fluid or pneumothorax. Cardiac silhouette is within normal limits given technique. Impression: 1. There is somewhat increased reticular opacity at the left lung base which may be due to infiltrate/atelectasis, lung markings on the right more similar in appearance. There is suspected emphysema. Electronically signed by: Demetrio Carias MD (11/14/2018 4:51 PM) [id number]
[2018-11-14 16:56] LABS: BASE EXCESS ABG 16 mmol/L (-3-3); HCO3 ABG 49 mmol/L (21-28); PO2 ABG 109 mmHg (65-108); SAT O2 ABG 97 % (92-99)
[2018-11-14 16:57] LABS: PCO2 ABG 116 mmHg (35-46)
[2018-11-14 16:58] LABS: FIO2 ABG 100 % NRB
[2018-11-14] MEDS ORDERED: ONDANSETRON PF 4 MG/2 ML VIAL. IV ONE (17:00)
[2018-11-14 17:07] LABS: PROTHROMBIN TIME PATIENT 11.3 SEC (11.7-14.0)
[2018-11-14 17:11] LABS: CREATININE 0.6 mg/dL (0.6-1.0); GFR 100.6; POTASSIUM 4.9 mmol/L (3.5-5.1)
[2018-11-14 17:18] LABS: ALBUMIN 3.4 g/dL (3.4-5.0); ALBUMIN/GLOBULIN RATIO 1.3 (1.0-1.7); MAGNESIUM 2.2 mg/dL (1.8-2.4); TOTAL BILIRUBIN 0.3 mg/dL (0.2-1.0); TOTAL PROTEIN 6.1 g/dL (6.4-8.2)
[2018-11-14 17:57] LABS: BASE EXCESS ABG 14 mmol/L (-3-3); HCO3 ABG 49 mmol/L (21-28); PO2 ABG 85 mmHg (65-108); SAT O2 ABG 94 % (92-99)
[2018-11-14 17:59] LABS: FIO2 ABG 50; PCO2 ABG 152 mmHg (35-46)
[2018-11-14] MEDS ORDERED: PROPOFOL 0 ML IV ONE (18:09)
[2018-11-14] MEDS ORDERED: ETOMIDATE 20 MG/10 ML VIAL. IV ONE ×2 (18:17→18:30)
[2018-11-14] MEDS ORDERED: ROCURONIUM 50 MG/5 ML VIAL. ONE (18:17)
[2018-11-14] MEDS ORDERED: IV NORMAL SALINE 1000ML BAG 1,000 ML IV ONE ×4 (18:30→23:00)
[2018-11-14] MEDS ORDERED: MIDAZOLAM 100mg/100ml NS BAG 100 ML IV PRN (18:30)
[2018-11-14] MEDS ORDERED: PROPOFOL 50 ML IV ONE (18:30)
[2018-11-14] MEDS ORDERED: ROCURONIUM 50 MG/5 ML VIAL. IV ONE (18:30)
[2018-11-14] MEDS ORDERED: PROPOFOL 100 ML IV PRN (18:30)
[2018-11-14] MEDS ORDERED: AZITHRMYCN 500MG IVPB FOR OMNI 250 ML IV ONE (18:30)
[2018-11-14] MEDS ORDERED: VANCOMYCIN 1.75 GM in IV NORMAL SALINE 500ML BAG 500 ML IV ONE (19:00)
--- NOTE | 2018-11-14 19:00 | NUR ---
arrived from ED hooked up to moniter,placed on vent. propofol started per Ed nurse, NS bolus infusing upon arrival.moderate amount of oral secretions, small amount from ET tube patient was coughing.
[2018-11-14] MEDS: MIDAZOLAM 100mg/100ml NS BAG 100 ML IV PRN (21:00)
[2018-11-14] MEDS: CHLORHEXIDINE 0.12% 15 ML MOUTHWASH. MM SCH (21:00)
[2018-11-14] MEDS: CEFEPIME HCL IV Push 2 GM VIAL. IVP SCH (21:01)
[2018-11-14] MEDS: IV NORMAL SALINE 1000ML BAG 1,000 ML IV SCH (21:07)
[2018-11-14 21:54] LABS: BASE EXCESS ABG 7 mmol/L (-3-3); HCO3 ABG 31 mmol/L (21-28); PCO2 ABG 42 mmHg (35-46); PO2 ABG 128 mmHg (65-108); SAT O2 ABG 99 % (92-99)
[2018-11-14 22:01] LABS: FIO2 ABG 40
[2018-11-14] MEDS ORDERED: NOREPINEPHRIN 8MG/250ML PREMIX 250 ML IV PRN (22:30)
[2018-11-14] MEDS: IPRATRPIUM/ALBUTEROL 0.5/2.5MG 3 ML NEBU. NEB SCH (22:41)
--- NOTE | 2018-11-14 22:55 | PDOC1 ---
History and Physical Date of Admission Date of Admission DATE: 11/14/18 TIME: 22:50 History of Present Illness History of Present Illness Patient is a 63 year old smoker with a history of COPD, presented with weakness and dyspnea and confusion, intially ok in the ER, bipap started for support of resp. decline and then she became confused and was intuabted in the ER, alarming acidosis and PCO2 Known chronic bronchitis and congestive heart failure with history of chronic respiratory failure - and has been previously intubated EMS reported worse symptoms over days, no famly in ICU. Past Medical History Pulmonary: COPD Past Surgical History Past Surgical History: No pertinent history Family History Family History: Hypertension Social History ALCOHOL: occassional Drugs: None Current Medications Current Medications Current Medications Methylprednisolone Sodium Succinate (SOLU-Medrol 125MG VIAL) 125 mg 1X ONCE IV Last administered on 11/14/18at 17:14; Start 11/14/18 at 16:45; Stop 11/14/18 at 16:46; Status DC Albuterol/ Ipratropium (Duoneb) 3 ml 1X ONCE NEB Last administered on 11/14/18at 17:04; Start 11/14/18 at 16:45; Stop 11/14/18 at 16:46; Status DC Ondansetron HCl (Zofran) 4 mg 1X ONCE IV Last administered on 11/14/18at 17:13; Start 11/14/18 at 17:00; Stop 11/14/18 at 17:01; Status DC Propofol 0 ml @ As Directed STK-MED ONCE IV ; Start 11/14/18 at 18:09; Stop 11/14/18 at 18:10; Status DC Etomidate (Amidate) 20 mg STK-MED ONCE IV ; Start 11/14/18 at 18:17; Stop 11/14/18 at 18:18; Status DC Rocuronium [place] (Zemuron) 50 mg STK-MED ONCE .ROUTE ; Start 11/14/18 at 18:17; Stop 11/14/18 at 18:18; Status DC Propofol 100 ml @ 0 mls/hr CONT PRN IV SEE PROTOCOL Last administered on 11/14/18at 18:00; Start 11/14/18 at 18:30 Chlorhexidine Gluconate (Peridex) 15 ml BID MM ; Start 11/14/18 at 21:00 Midazolam HCl 100 ml @ 0 mls/hr CONT PRN IV SEE PROTOCOL; Start 11/14/18 at 18:30; Stop 11/14/18 at 20:14; Status DC Cefepime HCl (Maxipime) 2 gm Q12HR IVP Last administered on 11/14/18at 21:01; St art 11/14/18 at 18:27 Azithromycin 250 ml @ 250 mls/hr 1X ONCE IV ; Start 11/14/18 at 18:30; Stop 11/14/18 at 19:29; Status DC Vancomycin HCl (Vanco Per Pharmacy) 1 each PRN DAILY PRN MC SEE COMMENTS; Start 11/14/18 at 18:30 Propofol 50 ml @ 0 mls/hr 1X ONCE IV ; Start 11/14/18 at 18:30; Stop 11/14/18 at 18:31; Status DC Etomidate (Amidate) 20 mg 1X ONCE IV Last administered on 11/14/18at 18:11; Start 11/14/18 at 18:30; Stop 11/14/18 at 18:31; Status DC Rocuronium [place] (Zemuron) 50 mg 1X ONCE IV Last administered on 11/14/18at 18:11; Start 11/14/18 at 18:30; Stop 11/14/18 at 18:31; Status DC Sodium Chloride 1,000 ml @ 1,000 mls/hr 1X ONCE IV Last administered on 11/14/18at 18:11; Start 11/14/18 at 18:30; Stop 11/14/18 at 19:29; Status DC Vancomycin HCl 1.75 gm/Sodium Chloride 500 ml @ 250 mls/hr 1X ONCE IV Last administered on 11/14/18at 21:00; Start 11/14/18 at 19:00; Stop 11/14/18 at 20:59; Status DC Midazolam HCl 100 ml @ 5 mls/hr CONT PRN IV SEE I/O RECORD Last administered on 11/14/18at 21:00; Start 11/14/18 at 20:30 Sodium Chloride 1,000 ml @ 1,000 mls/hr 1X ONCE IV Last administered on 11/14/18at 21:07; Start 11/14/18 at 21:00; Stop 11/14/18 at 21:59; Status DC Methylprednisolone Sodium Succinate (SOLU-Medrol 125MG VIAL) 125 mg Q12HR IV ; Start 11/15/18 at 09:00 Albuterol/ Ipratropium (Duoneb) 3 ml Q4HRS NEB ; Start 11/15/18 at 00:00; Status Cancel Sodium Chloride 1,000 ml @ 75 mls/hr [id number] IV Last administered on 11/14/18at 21:07; Start 11/14/18 at 22:00 Sodium Chloride 1,000 ml @ 999 mls/hr 1X ONCE IV ; Start 11/14/18 at 20:45; Stop 11/14/18 at 21:45; Status UNV Albuterol/ Ipratropium (Duoneb) 3 ml RTQID NEB ; Start 11/15/18 at 08:00 Albuterol Sulfate (Ventolin Neb Soln) 2.5 mg PRN Q4HRS PRN NEB SHORTNESS OF BREATH; Start 11/14/18 at 20:45 Norepinephrine Bitartrate 250 ml @ 1.875 mls/ hr CONT PRN IV SEE I/O RECORD; Start 11/14/18 at 22:30 Sodium Chloride 1,000 ml @ 999 mls/hr 1X ONCE IV ; Start 11/14/18 at 23:00; Stop 11/15/18 at 00:00 Active Scripts Active Guaifenesin Dm Syrup (Guaifenesin/Dextromethorphan) 5 Ml Syrup 10 Ml PO PRN Q6HRS PRN MDD 1 7 Days Sinus 12-Hour (Pseudoephedrine Hcl) 120 Mg Tablet.er 120 Mg PO BID MDD 1 7 Days Doxycycline Hyclate 100 Mg Tablet 100 Mg PO BID MDD 1 7 Days Ventolin Hfa Inhaler (Albuterol Sulfate) 18 Gm Hfa.aer.ad 2 Puff INH Q4HRS MDD 1 Reported Incruse Ellipta (Umeclidinium [place]) 62.5 Mcg Blst.w.dev 62.5 Mcg IH DAILY Breo Ellipta 100-25 Mcg Inh (Fluticasone/Vilanterol) 1 Each Aer.pow.ba 1 Puff IH DAILY Tudorza Pressair (Aclidinium [place]) 400 Mcg Aer.pow.ba 400 Mcg IH DAILY Allergies Allergies: Coded Allergies: No Known Drug Allergies (Unverified , 07/11/17) ROS Review of System unable Physical Exam General: moderate distress, Other (tubed) HEENT: Atraumatic Lungs: Other (mech sound of vent) Heart: S1S2, other Abdomen: Soft Extremities: No clubbing, No cyanosis, No edema Skin: No breakdown Psych/Mental Status: Other (sedated) Vitals Vitals Vital Signs Date Time Temp Pulse Resp B/P (MAP) Pulse Ox O2 Delivery O2 Flow Rate FiO2 11/14/18 22:41 99 Ventilator 11/14/18 20:00 100 24 93/44 (60) 11/14/18 19:52 98.6 98.6 11/14/18 16:40 15.0 Labs Labs Laboratory Tests Test 11/14/18 16:14 11/14/18 16:15 11/14/18 17:44 11/14/18 21:48 O2 Saturation 97 % (92-99) 94 % (92-99) 99 % (92-99) Arterial Blood pH 7.24 (7.35-7.45) 7.13 (7.35-7.45) 7.49 (7.35-7.45) Arterial Blood pCO2 at Patient Temp 116 mmHg (35-46) 152 mmHg (35-46) 42 mmHg (35-46) Arterial Blood pO2 at Patient Temp 109 mmHg (65-108) 85 mmHg (65-108) 128 mmHg (65-108) Arterial Blood HCO3 49 mmol/L (21-28) 49 mmol/L (21-28) 31 mmol/L (21-28) Arterial Blood Base Excess 16 mmol/L (-3-3) 14 mmol/L (-3-3) 7 mmol/L (-3-3) FiO2 100 % nrb 50 40 White Blood Count 9.0 x10^3/uL (4.0-11.0) Red Blood Count 4.23 x10^6/uL (3.50-5.40) Hemoglobin 12.5 g/dL (12.0-15.5) Hematocrit 38.2 % (36.0-47.0) Mean Corpuscular Volume 90 fL (79-100) Mean Corpuscular Hemoglobin 30 pg (25-35) Mean Corpuscular Hemoglobin Concent 33 g/dL (31-37) Red Cell Distribution Width 14.4 % (11.5-14.5) Platelet Count 321 x10^3/uL (140-400) Neutrophils (%) (Auto) 77 % (31-73) Lymphocytes (%) (Auto) 13 % (24-48) Monocytes (%) (Auto) 8 % (0-9) Eosinophils (%) (Auto) 1 % (0-3) Basophils (%) (Auto) 1 % (0-3) Neutrophils # (Auto) 7.0 x10^3uL (1.8-7.7) Lymphocytes # (Auto) 1.2 x10^3/uL (1.0-4.8) Monocytes # (Auto) 0.7 x10^3/uL (0.0-1.1) Eosinophils # (Auto) 0.1 x10^3/uL (0.0-0.7) Basophils # (Auto) 0.1 x10^3/uL (0.0-0.2) Prothrombin Time 11.3 SEC (11.7-14.0) Prothromb Time International Ratio 0.9 (0.8-1.1) Activated Partial Thromboplast Time 25 SEC (24-38) Sodium Level 141 mmol/L (136-145) Potassium Level 4.9 mmol/L (3.5-5.1) Chloride Level 97 mmol/L (98-107) Carbon Dioxide Level 44 mmol/L (21-32) Anion Gap 0 (6-14) Blood Urea Nitrogen 13 mg/dL (7-20) Creatinine 0.6 mg/dL (0.6-1.0) Estimated GFR (Cockcroft-Gault) 100.6 BUN/Creatinine Ratio 22 (6-20) Glucose Level 101 mg/dL (70-99) Lactic Acid Level 0.3 mmol/L (0.4-2.0) Calcium Level 9.0 mg/dL (8.5-10.1) Magnesium Level 2.2 mg/dL (1.8-2.4) Total Bilirubin 0.3 mg/dL (0.2-1.0) Aspartate Amino Transf (AST/SGOT) 15 U/L (15-37) Alanine Aminotransferase (ALT/SGPT) 23 U/L (14-59) Alkaline Phosphatase 43 U/L (46-116) Ammonia 24 mcmol/L (11-34) Troponin I Quantitative 0.020 ng/mL (0.000-0.055) MC-Uix-D-Type Natriuretic Peptide 300 pg/mL (0-124) Total Protein 6.1 g/dL (6.4-8.2) Albumin 3.4 g/dL (3.4-5.0) Albumin/Globulin Ratio 1.3 (1.0-1.7) Ethyl Alcohol Level < 10 mg/dL (0-10) Laboratory Tests Test 11/14/18 16:14 11/14/18 16:15 11/14/18 17:44 11/14/18 21:48 O2 Saturation 97 % (92-99) 94 % (92-99) 99 % (92-99) Arterial Blood pH 7.24 (7.35-7.45) 7.13 (7.35-7.45) 7.49 (7.35-7.45) Arterial Blood pCO2 at Patient Temp 116 mmHg (35-46) 152 mmHg (35-46) 42 mmHg (35-46) Arterial Blood pO2 at Patient Temp 109 mmHg (65-108) 85 mmHg (65-108) 128 mmHg (65-108) Arterial Blood HCO3 49 mmol/L (21-28) 49 mmol/L (21-28) 31 mmol/L (21-28) Arterial Blood Base Excess 16 mmol/L (-3-3) 14 mmol/L (-3-3) 7 mmol/L (-3-3) FiO2 100 % nrb 50 40 White Blood Count 9.0 x10^3/uL (4.0-11.0) Red Blood Count 4.23 x10^6/uL (3.50-5.40) Hemoglobin 12.5 g/dL (12.0-15.5) Hematocrit 38.2 % (36.0-47.0) Mean Corpuscular Volume 90 fL (79-100) Mean Corpuscular Hemoglobin 30 pg (25-35) Mean Corpuscular Hemoglobin Concent 33 g/dL (31-37) Red Cell Distribution Width 14.4 % (11.5-14.5) Platelet Count 321 x10^3/uL (140-400) Neutrophils (%) (Auto) 77 % (31-73) Lymphocytes (%) (Auto) 13 % (24-48) Monocytes (%) (Auto) 8 % (0-9) Eosinophils (%) (Auto) 1 % (0-3) Basophils (%) (Auto) 1 % (0-3) Neutrophils # (Auto) 7.0 x10^3uL (1.8-7.7) Lymphocytes # (Auto) 1.2 x10^3/uL (1.0-4.8) Monocytes # (Auto) 0.7 x10^3/uL (0.0-1.1) Eosinophils # (Auto) 0.1 x10^3/uL (0.0-0.7) Basophils # (Auto) 0.1 x10^3/uL (0.0-0.2) Prothrombin Time 11.3 SEC (11.7-14.0) Prothromb Time International Ratio 0.9 (0.8-1.1) Activated Partial Thromboplast Time 25 SEC (24-38) Sodium Level 141 mmol/L (136-145) Potassium Level 4.9 mmol/L (3.5-5.1) Chloride Level 97 mmol/L (98-107) Carbon Dioxide Level 44 mmol/L (21-32) Anion Gap 0 (6-14) Blood Urea Nitrogen 13 mg/dL (7-20) Creatinine 0.6 mg/dL (0.6-1.0) Estimated GFR (Cockcroft-Gault) 100.6 BUN/Creatinine Ratio 22 (6-20) Glucose Level 101 mg/dL (70-99) Lactic Acid Level 0.3 mmol/L (0.4-2.0) Calcium Level 9.0 mg/dL (8.5-10.1) Magnesium Level 2.2 mg/dL (1.8-2.4) Total Bilirubin 0.3 mg/dL (0.2-1.0) Aspartate Amino Transf (AST/SGOT) 15 U/L (15-37) Alanine Aminotransferase (ALT/SGPT) 23 U/L (14-59) Alkaline Phosphatase 43 U/L (46-116) Ammonia 24 mcmol/L (11-34) Troponin I Quantitative 0.020 ng/mL (0.000-0.055) RS-Tgd-Q-Type Natriuretic Peptide 300 pg/mL (0-124) Total Protein 6.1 g/dL (6.4-8.2) Albumin 3.4 g/dL (3.4-5.0) Albumin/Globulin Ratio 1.3 (1.0-1.7) Ethyl Alcohol Level < 10 mg/dL (0-10) VTE Prophylaxis Ordered VTE Prophylaxis Devices: Yes VTE Pharmacological Prophylaxi: Yes Assessment/Plan Assessment/Plan acute hypercarbic respiratory failure, alarming pH and PCO2 levels metabolic encephalopathy acute hypoxia COPD with acute bronchitis admitted to ICU, 40 min JOSE RUBY MD Nov 14, 2018 22:55
[2018-11-14 23:27] LABS: BILIRUBIN,URINE NEGATIVE (NEG); CLARITY,URINE TURBID; COLOR,URINE YELLOW; NITRITE,URINE NEGATIVE (NEG); PROTEIN,URINE 100 mg/dL (NEG-TRACE)
[2018-11-14 23:34] LABS: BACTERIA,URINE 0 /HPF (0-FEW); HYALINE CASTS, URINE OCCASIONAL /HPF; SQUAMOUS EPITHELIAL CELL,UR OCC /LPF
[2018-11-14 23:36] LABS: AMPHETAMINE/METHAMPHETAMINE NEG (NEG); BARBITURATES NEG (NEG); BENZODIAZEPINES POS (NEG); CANNABINOIDS NEG (NEG); COCAINE NEG (NEG); METHADONE NEG (NEG); OPIATES NEG (NEG); PHENCYCLIDINE NEG (NEG)
[2018-11-15] VITALS (24 sets, daily range): BP systolic 69–178; BP diastolic 55–91
[2018-11-15] MEDS: VANCOMYCIN PER PHARMACY MC PRN ×2 (00:31→10:17)
--- NOTE | 2018-11-15 00:31 | NUR ---
Pharmacy Vancomycin Dosing Note S:Consulted to monitor and dose vancomycin started 11/14/18. O:BENITO MARQUEZ is a 63 year old F with BRONCHITIS, RESPIRATORY FAILURE . Height: 5 feet, 0 inches Weight: 68.950312 kg [place] Body Weight: 45.50 Adjusted Body Weight: 54.50 Dosing Weight: Actual Other Antibiotics: CEFEPIME LABS: Last BUN: 13 Last Creatinine: 0.6 Creatinine Clearance: 81 mL/min Last WBC: 9 Last Procalcitonin: Tmax (past 24 hours): Microbiology: I/O: Drug Levels: Last level: on at Last dose given 11/14/18 at 2100 Vancomycin Dosing: Loading Dose: 1750 mg x1 Dosing Weight: Actual Target Trough: 15-20 A: Based on: WT AND CRCL P: 1. Begin Vancomycin 1000 mg IV q12h 2. Follow up Trough level on 11/16/18 at 0830 3. Pharmacy will continue to monitor, follow and adjust therapy as needed. ABE THOMAS RPH, 11/15/18 0031 Signed: 11/15/18 at 0032 by ABE THOMAS RPH PHA
[2018-11-15] MEDS: IPRATRPIUM/ALBUTEROL 0.5/2.5MG 3 ML NEBU. NEB SCH ×6 (04:00→23:45)
[2018-11-15 04:34] LABS: BASO % 0 % (0-3); EOS % 0 % (0-3); HEMATOCRIT 34.5 % (36.0-47.0); HEMOGLOBIN 11.3 g/dL (12.0-15.5); LYMPH # 0.7 x10^3/uL (1.0-4.8); LYMPH % 9 % (24-48); MEAN CORPUSCULAR HEMOGLOBIN 29 pg (25-35); MEAN CORPUSCULAR HGB CONC 33 g/dL (31-37); MEAN CORPUSCULAR VOLUME 90 fL (79-100); MONO # 0.5 x10^3/uL (0.0-1.1); MONO % 6 % (0-9); NEUT # 6.9 x10^3uL (1.8-7.7); NEUT % 85 % (31-73); PLATELET COUNT 330 x10^3/uL (140-400); RED BLOOD COUNT 3.84 x10^6/uL (3.50-5.40); RED CELL DISTRIBUTION WIDTH 14.6 % (11.5-14.5); WHITE BLOOD COUNT 8.1 x10^3/uL (4.0-11.0)
[2018-11-15 05:06] LABS: ALBUMIN 2.9 g/dL (3.4-5.0); CALCIUM 8.5 mg/dL (8.5-10.1); GFR 55.8; POTASSIUM 4.2 mmol/L (3.5-5.1); TOTAL BILIRUBIN 0.6 mg/dL (0.2-1.0); TOTAL PROTEIN 5.7 g/dL (6.4-8.2)
[2018-11-15] MEDS: IV NORMAL SALINE 1000ML BAG 1,000 ML IV SCH (06:04)
[2018-11-15] MEDS: MIDAZOLAM 100mg/100ml NS BAG 100 ML IV PRN (06:05)
--- NOTE | 2018-11-15 06:05 | EKG ---
[facility] [address] [place] [address] Test Date: 2018-11-14 Test Time: 16:35:34 Pat Name: BENITO MARQUEZ Department: Room: 114 1 Gender: F [employer] Machine [employer]: : [id number] Requested By: JACOB VAZQUEZ Order Number: [id number] Reading MD: Jamie Calero MD Measurements Intervals [place] Rate: 78 P: 68 PA: 148 QRS: 68 QRSD: 78 T: 67 QT: 372 QTc: 427 Interpretive Statements SINUS RHYTHM Electronically Signed On 11-15-2018 19:58:32 CDT by Jamie Calero MD
--- NOTE | 2018-11-15 06:50 | NUR ---
At shift change levophed rate 5 mcg/min. Not documented on spreadsheet.
[2018-11-15 07:01] LABS: % BANDS 5 % (0-9); % LYMPHS 7 % (24-48); % MONOS 6 % (0-10); % SEGS 82 % (35-66); PLT ESTIMATE ADEQUATE (ADEQUATE)
[2018-11-15] MEDS ORDERED: IPRATRPIUM/ALBUTEROL 0.5/2.5MG 3 ML NEBU. NEB SCH ×2 (08:00)
--- NOTE | 2018-11-15 08:21 | RAD ---
Examination: PORTABLE CHEST 1V History: Intubated Comparison/Correlation: 11/14/2018 AP view of the chest Findings: Portable semiupright frontal view chest was obtained. Endotracheal tube terminates 4.1 cm from the lucien. Enteric tube is identified with the distal aspect is not included. Heart size is normal. No pneumothorax. Subtle nonspecific interstitial thickening of the lung diallo is present similar upon correlation with prior exams. No focal new infiltrate. Pulmonary hyperinflation noted. Impression: Endotracheal tube is in place. COPD. No focal infiltrate. Electronically signed by: Vasyl Reyes MD (11/15/2018 8:18 AM) [facility]
--- NOTE | 2018-11-15 08:27 | RAD ---
CHEST AP ONLY Clinical Indication: Endotracheal tube placement. Enteric tube placement. Comparison: 11/14/2018 AP view of the chest. Findings: Portable semiupright frontal view of the chest was obtained. Endotracheal tube terminates 2.4 cm from the lucien. Enteric tube appears to be in place although distal aspect is not fully included. It is subdiaphragmatic in location. The cardiomediastinal silhouette is normal. Small nodular opacity at the left mid thoracic level overlying the posterior eighth rib shadow bilaterally is present similar to the previous exam. It is not evident on older prior exams. There is no pneumothorax. Mild interstitial thickening of lung diallo is noted. Pulmonary hyperinflation noted. Blunting of the left costophrenic angle may represent pleural thickening or possibly very small pleural effusion but is unchanged. No acute bone abnormality. IMPRESSION: Small nodular infiltrate at the lateral left lower lung field. Consider interval follow-up to assess resolution. COPD. Electronically signed by: Vasyl Reyes MD (11/15/2018 8:25 AM) [facility]
[2018-11-15] MEDS ORDERED: VANCOMYCIN 1 GM in IV NORMAL SALINE 250ML 250 ML IV SCH (09:00)
[2018-11-15] MEDS: CHLORHEXIDINE 0.12% 15 ML MOUTHWASH. MM SCH (09:00)
[2018-11-15] MEDS ORDERED: IV NORMAL SALINE 1000ML BAG 1,000 ML IV ONE (09:15)
--- NOTE | 2018-11-15 09:31 | CONS ---
DATE OF CONSULTATION: PULMONARY CONSULTATION ATTENDING PHYSICIAN: Dr. Tijerina. REASON FOR CONSULTATION: Respiratory failure. HISTORY OF PRESENT ILLNESS: The patient is a 63-year-old who has a history of COPD, suspect severe. She presented to the Emergency Room with weakness, dyspnea and confusion. The patient initially was responding per ER notes. Her ABG showed a pH of 7.24, pCO2 of 116 and a pO2 of 109. This was obtained on 100% nonrebreather mask. The patient was placed on BiPAP. However, her volumes were low and after being on BiPAP, repeat arterial blood gases revealed a pH of 7.13 with a pCO2 worsening of 152 and a pO2 of 85 on 50% FiO2. As a result, she was intubated by the ER physician. The patient remains on the ventilator. She was hypotensive. I gave a fluid bolus. Her urine output is still not that great. Her chest x-ray does not reveal any definite consolidation. I have reviewed her post-intubation and pre-intubation chest x-ray. Endotracheal tube appears to be in satisfactory position. The patient was also started on empiric antibiotic based on the initial chest x-ray, which probably shows some basal atelectasis. Her echocardiogram from 09/2018 showed an EF of 55-60% and grade 1 diastolic dysfunction. Her latest ABG showed a pH of 7.50, pCO2 of 31, pO2 127 with a bicarbonate of 24 on assist control rate of 24, and 40% FiO2. I have been asked to see her for further evaluation. She is requiring 5 mcg of Levophed. PAST MEDICAL HISTORY: Suspect end-stage COPD, unknown FEV1. PAST SURGICAL HISTORY: No recent surgery. ALLERGIES: None. MEDICATIONS: Reviewed as listed in the MRAD including broad-spectrum antibiotic. REVIEW OF SYSTEMS: Unable to obtain from the patient. SOCIAL HISTORY: Appears to have a long history of tobacco use. PHYSICAL EXAMINATION: VITAL SIGNS: Reviewed. Her T-max is 100.1. Blood pressure, latest is 101 systolic on 5 mcg of Levophed. HEENT: Sclerae nonicteric. NECK: Supple. LUNGS: Diminished breath sounds. No wheezing. CARDIOVASCULAR: Regular rate and rhythm. ABDOMEN: Soft, nontender. EXTREMITIES: With no pitting edema. LABORATORY DATA: Reviewed. ABGs were all discussed in my history of present illness. BUN is 23, creatinine 1.0. Troponin 0.020. Albumin 2.9. Urine drug screen positive for benzos. Urinalysis negative. INR 0.9. White cell count 8.1, hemoglobin 11.3 and platelets are 330. IMPRESSION: 1. Bpkhy-sm-kznfurh hypercapnic respiratory failure secondary to acute exacerbation of chronic obstructive pulmonary disease and also shock. 2. Shock, likely a combination of hypovolemic and septic shock. 3. Low-grade fever. Source could be in the lungs, although chest x-ray does not show definite consolidation post-intubation. 4. Suspect underlying severe chronic obstructive pulmonary disease with chronic hypercapnia. 5. Mild azotemia. 6. Rwlw-qk-ilftzair protein-calorie malnutrition. RECOMMENDATIONS: 1. Continue with present assist control mode. Follow ABGs and make necessary adjustment. She has not developed respiratory alkalosis and I have reduced the rate. 2. Broad-spectrum antibiotics. 3. Follow cultures. 4. Continue with another liter of fluid bolus to see an improvement in her blood pressure. 5. Wean Levophed to keep systolic pressure above 100. 6. Continue DuoNeb. 7. Deep venous thrombosis prophylaxis. 8. Stress ulcer prophylaxis. 9. We will discuss with the family regarding advanced directives. 10. Discussed with RN, discussed with RT. Critical care time 37 minutes. XENA MCGRAW MD DR: BARON/amrik JOB#: [id number] / [id number]
[2018-11-15] MEDS: methylPREDNISolone SOD SUCC PF 125 MG/2 ML VIAL. IV SCH ×2 (09:52→21:35)
[2018-11-15] MEDS: CEFEPIME HCL IV Push 2 GM VIAL. IVP SCH ×2 (09:52→21:35)
[2018-11-15] MEDS: FAMOTIDINE 20 MG/2 ML VIAL IVP SCH ×2 (09:57→21:35)
[2018-11-15] MEDS: ENOXAPARIN 40 MG/0.4 ML SYRINGE. SQ SCH (09:57)
--- NOTE | 2018-11-15 10:39 | PDOC ---
PROGRESS NOTES History of Present Illness History of Present Illness Assessment/Plan Assessment/Plan acute hypercarbic respiratory failure, critical pH and PCO2 levels metabolic encephalopathy acute hypoxia COPD with acute bronchitis exacerbation of chronic obstructive pulmonary disease shock. likely a combination of hypovolemic and septic shock. RECENT ECHO 09/24 Transmitral Doppler flow pattern is Grade I-abnormal relaxation pattern. Moderate aortic stenosis. Trace mitral regurgitation. Trace tricuspid regurgitation. The PA pressure was estimated at 36 mmHg. Small bilateral lung nodules. follow-up noncontrast chest CT SOON per Fleischner guidelines. MODERATE PROTEIN-CALORIC MALNUTRITION admitted to ICU, pulm consult ID CONSULT CARDIOLOGY CONSULT/// RE SHOCK, AORTIC STENOSIS Deep venous thrombosis prophylaxis. Stress ulcer prophylaxis. D/W RN 37 min CC TIME Vitals Vitals Vital Signs Date Time Temp Pulse Resp B/P (MAP) Pulse Ox O2 Delivery O2 Flow Rate FiO2 11/15/18 10:13 85 24 178/91 (120) 98 Ventilator 11/15/18 07:00 99.9 99.9 11/14/18 16:40 15.0 Physical Exam Physical Exam Lungs: (DISTANT ON vent) Heart: S1S2, other GR 2/6 AVNI Abdomen: Soft Extremities: No clubbing, No cyanosis, No edema Skin: No breakdown Psych/Mental Status: Other (sedated) General: Cooperative, No acute distress, Other (tubed) Lungs: Clear Abdomen: Normal bowel sounds, Soft Extremities: No clubbing, No cyanosis, No edema Skin: No breakdown, No significant lesion Labs LABS Chest CT without contrast Clinical indications: Respiratory failure. COMPARISON: No previous chest CT. TECHNIQUE: Noncontrast helical CT scanning of the chest was performed. Without IV contrast, the sensitivity to detect organ pathology is decreased. PQRS compliance Statement One or more of the following individualized dose reduction techniques were utilized for this study: 1. Automated exposure control 2. Adjustment of the mA and/or kV according to patient size 3. Use of iterative reconstruction technique FINDINGS: No enlarged thoracic lymphadenopathy is evident. No focal aneurysmal dilatation of thoracic aorta is seen. Heart size is normal. No pericardial effusion is seen. Bilateral emphysema is seen with an upper lung zone predominance. There are small approximate 1 cm subpleural lung nodules within the posterior aspect of the right lower lobe. There is a subpleural nodule within the medial posterior aspect of the superior segment left lower lobe measuring 8 mm in size. These most likely represent atelectasis. Small focus of atelectasis is seen involving the posterior medial aspect of the basal segment of the left lower lobe. No lung mass or lung consolidation is seen. No pleural effusion or pneumothorax is evident. The proximal bronchial tree is patent. No lytic process is seen. No adrenal mass is evident. IMPRESSION: Small bilateral lung nodules. Recommend a follow-up noncontrast chest CT in 3 months as per Fleischner guidelines. Emphysema. No lung consolidation or pleural effusion. Electronically signed by: Harris Diaz MD (10/01/2018 10:41 AM) [facility] Mitral Valve MV E Velocity 92.3cm/s MV DECEL TIME 234ms MV A Velocity 112.8cm/s E/A Ratio 0.8 Tricuspid Valve TR P. Velocity 289cm/s RAP ESTIMATE 3mmHg TR Peak Gr. 33mmHg RVSP 36mmHg Pulmonary Vein S1 Velocity 67.4cm/s D2 Velocity 49.2cm/s LEFT VENTRICLE The left ventricle is normal size. There is normal left ventricular wall thickness. The left ventricular systolic function is normal. The Ejection Fraction is 55-60%. There is normal LV segmental wall motion. Transmitral Doppler flow pattern is Grade I-abnormal relaxation pattern. RIGHT VENTRICLE The right ventricle is normal size. The right ventricular systolic function is normal. ATRIA The left atrium size is normal. The right atrium size is normal. The interatrial septum is intact with no evidence for an atrial septal defect or patent foramen ovale as noted on 2-D or Doppler imaging. AORTIC VALVE The aortic valve is not well visualized but moderately thickened and appears to have some decreased opening. Doppler and Color Flow revealed no significant ao rtic regurgitation. Calculated aortic valve area is 1.3 cm2 with maximum pressure gradient of 53 mmHg and mean pressure gradient of 28 mmHg. Doppler and color-flow analysis revealed moderate aortic stenosis. MITRAL VALVE The mitral valve is calcified but opens well. Mitral annular calcification is mild. There is no evidence of mitral valve prolapse. There is no mitral valve stenosis. Doppler and Color-flow revealed trace mitral regurgitation. TRICUSPID VALVE The tricuspid valve is normal in structure and function. Doppler and Color Flow revealed trace tricuspid regurgitation. There is mild pulmonary hypertension. The PA pressure was estimated at 36 mmHg. There is no tricuspid valve stenosis. PULMONIC VALVE The pulmonic valve is not well visualized. Doppler and Color Flow revealed no pulmonic valvular regurgitation. There is no pulmonic valvular stenosis. GREAT VESSELS The aortic root is normal in size. The ascending aorta is not well seen. The IVC is normal in size and collapses >50% with inspiration. PERICARDIAL EFFUSION There is no evidence of significant pericardial effusion. Critical Notification Critical Value: No <Conclusion> The left ventricular systolic function is normal. The Ejection Fraction is 55-60%. There is normal LV segmental wall motion. Transmitral Doppler flow pattern is Grade I-abnormal relaxation pattern. Moderate aortic stenosis. Trace mitral regurgitation. Trace tricuspid regurgitation. The PA pressure was estimated at 36 mmHg. There is no evidence of significant pericardial effusion. Examination: PORTABLE CHEST 1V History: Intubated Comparison/Correlation: 11/14/2018 AP view of the chest Findings: Portable semiupright frontal view chest was obtained. Endotracheal tube terminates 4.1 cm from the lucien. Enteric tube is identified with the distal aspect is not included. Heart size is normal. No pneumothorax. Subtle nonspecific interstitial thickening of the lung diallo is present similar upon correlation with prior exams. No focal new infiltrate. Pulmonary hyperinflation noted. Impression: Endotracheal tube is in place. COPD. No focal infiltrate. Laboratory Tests Test 11/14/18 16:14 11/14/18 16:15 11/14/18 17:44 11/14/18 21:48 O2 Saturation 97 % (92-99) 94 % (92-99) 99 % (92-99) Arterial Blood pH 7.24 (7.35-7.45) 7.13 (7.35-7.45) 7.49 (7.35-7.45) Arterial Blood pCO2 at Patient Temp 116 mmHg (35-46) 152 mmHg (35-46) 42 mmHg (35-46) Arterial Blood pO2 at Patient Temp 109 mmHg (65-108) 85 mmHg (65-108) 128 mmHg (65-108) Arterial Blood HCO3 49 mmol/L (21-28) 49 mmol/L (21-28) 31 mmol/L (21-28) Arterial Blood Base Excess 16 mmol/L (-3-3) 14 mmol/L (-3-3) 7 mmol/L (-3-3) FiO2 100 % nrb 50 40 White Blood Count 9.0 x10^3/uL (4.0-11.0) Red Blood Count 4.23 x10^6/uL (3.50-5.40) Hemoglobin 12.5 g/dL (12.0-15.5) Hematocrit 38.2 % (36.0-47.0) Mean Corpuscular Volume 90 fL (79-100) Mean Corpuscular Hemoglobin 30 pg (25-35) Mean Corpuscular Hemoglobin Concent 33 g/dL (31-37) Red Cell Distribution Width 14.4 % (11.5-14.5) Platelet Count 321 x10^3/uL (140-400) Neutrophils (%) (Auto) 77 % (31-73) Lymphocytes (%) (Auto) 13 % (24-48) Monocytes (%) (Auto) 8 % (0-9) Eosinophils (%) (Auto) 1 % (0-3) Basophils (%) (Auto) 1 % (0-3) Neutrophils # (Auto) 7.0 x10^3uL (1.8-7.7) Lymphocytes # (Auto) 1.2 x10^3/uL (1.0-4.8) Monocytes # (Auto) 0.7 x10^3/uL (0.0-1.1) Eosinophils # (Auto) 0.1 x10^3/uL (0.0-0.7) Basophils # (Auto) 0.1 x10^3/uL (0.0-0.2) Prothrombin Time 11.3 SEC (11.7-14.0) Prothromb Time International Ratio 0.9 (0.8-1.1) Activated Partial Thromboplast Time 25 SEC (24-38) Sodium Level 141 mmol/L (136-145) Potassium Level 4.9 mmol/L (3.5-5.1) Chloride Level 97 mmol/L (98-107) Carbon Dioxide Level 44 mmol/L (21-32) Anion Gap 0 (6-14) Blood Urea Nitrogen 13 mg/dL (7-20) Creatinine 0.6 mg/dL (0.6-1.0) Estimated GFR (Cockcroft-Gault) 100.6 BUN/Creatinine Ratio 22 (6-20) Glucose Level 101 mg/dL (70-99) Lactic Acid Level 0.3 mmol/L (0.4-2.0) Calcium Level 9.0 mg/dL (8.5-10.1) Magnesium Level 2.2 mg/dL (1.8-2.4) Total Bilirubin 0.3 mg/dL (0.2-1.0) Aspartate Amino Transf (AST/SGOT) 15 U/L (15-37) Alanine Aminotransferase (ALT/SGPT) 23 U/L (14-59) Alkaline Phosphatase 43 U/L (46-116) Ammonia 24 mcmol/L (11-34) Troponin I Quantitative 0.020 ng/mL (0.000-0.055) CW-Opr-T-Type Natriuretic Peptide 300 pg/mL (0-124) Total Protein 6.1 g/dL (6.4-8.2) Albumin 3.4 g/dL (3.4-5.0) Albumin/Globulin Ratio 1.3 (1.0-1.7) Ethyl Alcohol Level < 10 mg/dL (0-10) Test 11/14/18 23:15 11/15/18 03:20 Urine Collection Type U cath Urine Color Yellow Urine Clarity Turbid Urine pH 7.0 Urine Specific [place] 1.025 Urine Protein 100 mg/dL (NEG-TRACE) Urine Glucose (UA) Negative mg/dL (NEG) Urine Ketones (Stick) 40 mg/dL (NEG) Urine Blood Moderate (NEG) Urine Nitrite Negative (NEG) Urine Bilirubin Negative (NEG) Urine Urobilinogen Dipstick 1.0 mg/dL (0.2 mg/dL) Urine Leukocyte Esterase Negative (NEG) Urine RBC 6-10 /HPF (0-2) Urine WBC 5-10 /HPF (0-4) Urine Squamous Epithelial Cells Occ /LPF Urine Bacteria 0 /HPF (0-FEW) Urine Hyaline Casts Occasional /HPF Urine Mucus Slight /LPF Urine Opiates Screen Neg (NEG) Urine Methadone Screen Neg (NEG) Urine Barbiturates Neg (NEG) Urine Phencyclidine Screen Neg (NEG) Urine Amphetamine/Methamphetamine Neg (NEG) Urine Benzodiazepines Screen Pos (NEG) Urine Cocaine Screen Neg (NEG) Urine Cannabinoids Screen Neg (NEG) Urine Ethyl Alcohol Neg (NEG) White Blood Count 8.1 x10^3/uL (4.0-11.0) Red Blood Count 3.84 x10^6/uL (3.50-5.40) Hemoglobin 11.3 g/dL (12.0-15.5) Hematocrit 34.5 % (36.0-47.0) Mean Corpuscular Volume 90 fL (79-100) Mean Corpuscular Hemoglobin 29 pg (25-35) Mean Corpuscular Hemoglobin Concent 33 g/dL (31-37) Red Cell Distribution Width 14.6 % (11.5-14.5) Platelet Count 330 x10^3/uL (140-400) Neutrophils (%) (Auto) 85 % (31-73) Lymphocytes (%) (Auto) 9 % (24-48) Monocytes (%) (Auto) 6 % (0-9) Eosinophils (%) (Auto) 0 % (0-3) Basophils (%) (Auto) 0 % (0-3) Neutrophils # (Auto) 6.9 x10^3uL (1.8-7.7) Lymphocytes # (Auto) 0.7 x10^3/uL (1.0-4.8) Monocytes # (Auto) 0.5 x10^3/uL (0.0-1.1) Eosinophils # (Auto) 0.0 x10^3/uL (0.0-0.7) Basophils # (Auto) 0.0 x10^3/uL (0.0-0.2) Segmented Neutrophils % 82 % (35-66) Band Neutrophils % 5 % (0-9) Lymphocytes % 7 % (24-48) Monocytes % 6 % (0-10) Platelet Estimate Adequate (ADEQUATE) Sodium Level 140 mmol/L (136-145) Potassium Level 4.2 mmol/L (3.5-5.1) Chloride Level 102 mmol/L (98-107) Carbon Dioxide Level 29 mmol/L (21-32) Anion Gap 9 (6-14) Blood Urea Nitrogen 23 mg/dL (7-20) Creatinine 1.0 mg/dL (0.6-1.0) Estimated GFR (Cockcroft-Gault) 55.8 BUN/Creatinine Ratio 23 (6-20) Glucose Level 118 mg/dL (70-99) Calcium Level 8.5 mg/dL (8.5-10.1) Total Bilirubin 0.6 mg/dL (0.2-1.0) Aspartate Amino Transf (AST/SGOT) 14 U/L (15-37) Alanine Aminotransferase (ALT/SGPT) 19 U/L (14-59) Alkaline Phosphatase 34 U/L (46-116) Total Protein 5.7 g/dL (6.4-8.2) Albumin 2.9 g/dL (3.4-5.0) Albumin/Globulin Ratio 1.0 (1.0-1.7) Assessment and Plan Assessmemt and Plan Problems Medical Problems: (1) Acute hypercapnic respiratory failure Status: Acute Past Medical History Past Medical History: Asthma, Bronchitis, CHF, COPD Past Surgical History: No Surgical History Additional Past Surgical Histo: UNKNOWN Alcohol Use: None Drug Use: None Comment Review of Relevant I have reviewed the following items heaven (where applicable) has been applied. Labs Laboratory Tests Test 11/14/18 16:14 11/14/18 16:15 11/14/18 17:44 11/14/18 21:48 O2 Saturation 97 % (92-99) 94 % (92-99) 99 % (92-99) Arterial Blood pH 7.24 (7.35-7.45) 7.13 (7.35-7.45) 7.49 (7.35-7.45) Arterial Blood pCO2 at Patient Temp 116 mmHg (35-46) 152 mmHg (35-46) 42 mmHg (35-46) Arterial Blood pO2 at Patient Temp 109 mmHg (65-108) 85 mmHg (65-108) 128 mmHg (65-108) Arterial Blood HCO3 49 mmol/L (21-28) 49 mmol/L (21-28) 31 mmol/L (21-28) Arterial Blood Base Excess 16 mmol/L (-3-3) 14 mmol/L (-3-3) 7 mmol/L (-3-3) FiO2 100 % nrb 50 40 White Blood Count 9.0 x10^3/uL (4.0-11.0) Red Blood Count 4.23 x10^6/uL (3.50-5.40) Hemoglobin 12.5 g/dL (12.0-15.5) Hematocrit 38.2 % (36.0-47.0) Mean Corpuscular Volume 90 fL (79-100) Mean Corpuscular Hemoglobin 30 pg (25-35) Mean Corpuscular Hemoglobin Concent 33 g/dL (31-37) Red Cell Distribution Width 14.4 % (11.5-14.5) Platelet Count 321 x10^3/uL (140-400) Neutrophils (%) (Auto) 77 % (31-73) Lymphocytes (%) (Auto) 13 % (24-48) Monocytes (%) (Auto) 8 % (0-9) Eosinophils (%) (Auto) 1 % (0-3) Basophils (%) (Auto) 1 % (0-3) Neutrophils # (Auto) 7.0 x10^3uL (1.8-7.7) Lymphocytes # (Auto) 1.2 x10^3/uL (1.0-4.8) Monocytes # (Auto) 0.7 x10^3/uL (0.0-1.1) Eosinophils # (Auto) 0.1 x10^3/uL (0.0-0.7) Basophils # (Auto) 0.1 x10^3/uL (0.0-0.2) Prothrombin Time 11.3 SEC (11.7-14.0) Prothromb Time International Ratio 0.9 (0.8-1.1) Activated Partial Thromboplast Time 25 SEC (24-38) Sodium Level 141 mmol/L (136-145) Potassium Level 4.9 mmol/L (3.5-5.1) Chloride Level 97 mmol/L (98-107) Carbon Dioxide Level 44 mmol/L (21-32) Anion Gap 0 (6-14) Blood Urea Nitrogen 13 mg/dL (7-20) Creatinine 0.6 mg/dL (0.6-1.0) Estimated GFR (Cockcroft-Gault) 100.6 BUN/Creatinine Ratio 22 (6-20) Glucose Level 101 mg/dL (70-99) Lactic Acid Level 0.3 mmol/L (0.4-2.0) Calcium Level 9.0 mg/dL (8.5-10.1) Magnesium Level 2.2 mg/dL (1.8-2.4) Total Bilirubin 0.3 mg/dL (0.2-1.0) Aspartate Amino Transf (AST/SGOT) 15 U/L (15-37) Alanine Aminotransferase (ALT/SGPT) 23 U/L (14-59) Alkaline Phosphatase 43 U/L (46-116) Ammonia 24 mcmol/L (11-34) Troponin I Quantitative 0.020 ng/mL (0.000-0.055) QG-Rfu-F-Type Natriuretic Peptide 300 pg/mL (0-124) Total Protein 6.1 g/dL (6.4-8.2) Albumin 3.4 g/dL (3.4-5.0) Albumin/Globulin Ratio 1.3 (1.0-1.7) Ethyl Alcohol Level < 10 mg/dL (0-10) Test 11/14/18 23:15 11/15/18 03:20 Urine Collection Type U cath Urine Color Yellow Urine Clarity Turbid Urine pH 7.0 Urine Specific [place] 1.025 Urine Protein 100 mg/dL (NEG-TRACE) Urine Glucose (UA) Negative mg/dL (NEG) Urine Ketones (Stick) 40 mg/dL (NEG) Urine Blood Moderate (NEG) Urine Nitrite Negative (NEG) Urine Bilirubin Negative (NEG) Urine Urobilinogen Dipstick 1.0 mg/dL (0.2 mg/dL) Urine Leukocyte Esterase Negative (NEG) Urine RBC 6-10 /HPF (0-2) Urine WBC 5-10 /HPF (0-4) Urine Squamous Epithelial Cells Occ /LPF Urine Bacteria 0 /HPF (0-FEW) Urine Hyaline Casts Occasional /HPF Urine Mucus Slight /LPF Urine Opiates Screen Neg (NEG) Urine Methadone Screen Neg (NEG) Urine Barbiturates Neg (NEG) Urine Phencyclidine Screen Neg (NEG) Urine Amphetamine/Methamphetamine Neg (NEG) Urine Benzodiazepines Screen Pos (NEG) Urine Cocaine Screen Neg (NEG) Urine Cannabinoids Screen Neg (NEG) Urine Ethyl Alcohol Neg (NEG) White Blood Count 8.1 x10^3/uL (4.0-11.0) Red Blood Count 3.84 x10^6/uL (3.50-5.40) Hemoglobin 11.3 g/dL (12.0-15.5) Hematocrit 34.5 % (36.0-47.0) Mean Corpuscular Volume 90 fL (79-100) Mean Corpuscular Hemoglobin 29 pg (25-35) Mean Corpuscular Hemoglobin Concent 33 g/dL (31-37) Red Cell Distribution Width 14.6 % (11.5-14.5) Platelet Count 330 x10^3/uL (140-400) Neutrophils (%) (Auto) 85 % (31-73) Lymphocytes (%) (Auto) 9 % (24-48) Monocytes (%) (Auto) 6 % (0-9) Eosinophils (%) (Auto) 0 % (0-3) Basophils (%) (Auto) 0 % (0-3) Neutrophils # (Auto) 6.9 x10^3uL (1.8-7.7) Lymphocytes # (Auto) 0.7 x10^3/uL (1.0-4.8) Monocytes # (Auto) 0.5 x10^3/uL (0.0-1.1) Eosinophils # (Auto) 0.0 x10^3/uL (0.0-0.7) Basophils # (Auto) 0.0 x10^3/uL (0.0-0.2) Segmented Neutrophils % 82 % (35-66) Band Neutrophils % 5 % (0-9) Lymphocytes % 7 % (24-48) Monocytes % 6 % (0-10) Platelet Estimate Adequate (ADEQUATE) Sodium Level 140 mmol/L (136-145) Potassium Level 4.2 mmol/L (3.5-5.1) Chloride Level 102 mmol/L (98-107) Carbon Dioxide Level 29 mmol/L (21-32) Anion Gap 9 (6-14) Blood Urea Nitrogen 23 mg/dL (7-20) Creatinine 1.0 mg/dL (0.6-1.0) Estimated GFR (Cockcroft-Gault) 55.8 BUN/Creatinine Ratio 23 (6-20) Glucose Level 118 mg/dL (70-99) Calcium Level 8.5 mg/dL (8.5-10.1) Total Bilirubin 0.6 mg/dL (0.2-1.0) Aspartate Amino Transf (AST/SGOT) 14 U/L (15-37) Alanine Aminotransferase (ALT/SGPT) 19 U/L (14-59) Alkaline Phosphatase 34 U/L (46-116) Total Protein 5.7 g/dL (6.4-8.2) Albumin 2.9 g/dL (3.4-5.0) Albumin/Globulin Ratio 1.0 (1.0-1.7) Laboratory Tests Test 11/14/18 16:14 11/14/18 16:15 11/14/18 17:44 11/14/18 21:48 O2 Saturation 97 % (92-99) 94 % (92-99) 99 % (92-99) Arterial Blood pH 7.24 (7.35-7.45) 7.13 (7.35-7.45) 7.49 (7.35-7.45) Arterial Blood pCO2 at Patient Temp 116 mmHg (35-46) 152 mmHg (35-46) 42 mmHg (35-46) Arterial Blood pO2 at Patient Temp 109 mmHg (65-108) 85 mmHg (65-108) 128 mmHg (65-108) Arterial Blood HCO3 49 mmol/L (21-28) 49 mmol/L (21-28) 31 mmol/L (21-28) Arterial Blood Base Excess 16 mmol/L (-3-3) 14 mmol/L (-3-3) 7 mmol/L (-3-3) FiO2 100 % nrb 50 40 White Blood Count 9.0 x10^3/uL (4.0-11.0) Red Blood Count 4.23 x10^6/uL (3.50-5.40) Hemoglobin 12.5 g/dL (12.0-15.5) Hematocrit 38.2 % (36.0-47.0) Mean Corpuscular Volume 90 fL (79-100) Mean Corpuscular Hemoglobin 30 pg (25-35) Mean Corpuscular Hemoglobin Concent 33 g/dL (31-37) Red Cell Distribution Width 14.4 % (11.5-14.5) Platelet Count 321 x10^3/uL (140-400) Neutrophils (%) (Auto) 77 % (31-73) Lymphocytes (%) (Auto) 13 % (24-48) Monocytes (%) (Auto) 8 % (0-9) Eosinophils (%) (Auto) 1 % (0-3) Basophils (%) (Auto) 1 % (0-3) Neutrophils # (Auto) 7.0 x10^3uL (1.8-7.7) Lymphocytes # (Auto) 1.2 x10^3/uL (1.0-4.8) Monocytes # (Auto) 0.7 x10^3/uL (0.0-1.1) Eosinophils # (Auto) 0.1 x10^3/uL (0.0-0.7) Basophils # (Auto) 0.1 x10^3/uL (0.0-0.2) Prothrombin Time 11.3 SEC (11.7-14.0) Prothromb Time International Ratio 0.9 (0.8-1.1) Activated Partial Thromboplast Time 25 SEC (24-38) Sodium Level 141 mmol/L (136-145) Potassium Level 4.9 mmol/L (3.5-5.1) Chloride Level 97 mmol/L (98-107) Carbon Dioxide Level 44 mmol/L (21-32) Anion Gap 0 (6-14) Blood Urea Nitrogen 13 mg/dL (7-20) Creatinine 0.6 mg/dL (0.6-1.0) Estimated GFR (Cockcroft-Gault) 100.6 BUN/Creatinine Ratio 22 (6-20) Glucose Level 101 mg/dL (70-99) Lactic Acid Level 0.3 mmol/L (0.4-2.0) Calcium Level 9.0 mg/dL (8.5-10.1) Magnesium Level 2.2 mg/dL (1.8-2.4) Total Bilirubin 0.3 mg/dL (0.2-1.0) Aspartate Amino Transf (AST/SGOT) 15 U/L (15-37) Alanine Aminotransferase (ALT/SGPT) 23 U/L (14-59) Alkaline Phosphatase 43 U/L (46-116) Ammonia 24 mcmol/L (11-34) Troponin I Quantitative 0.020 ng/mL (0.000-0.055) HB-Cht-O-Type Natriuretic Peptide 300 pg/mL (0-124) Total Protein 6.1 g/dL (6.4-8.2) Albumin 3.4 g/dL (3.4-5.0) Albumin/Globulin Ratio 1.3 (1.0-1.7) Ethyl Alcohol Level < 10 mg/dL (0-10) Test 11/14/18 23:15 11/15/18 03:20 Urine Collection Type U cath Urine Color Yellow Urine Clarity Turbid Urine pH 7.0 Urine Specific [place] 1.025 Urine Protein 100 mg/dL (NEG-TRACE) Urine Glucose (UA) Negative mg/dL (NEG) Urine Ketones (Stick) 40 mg/dL (NEG) Urine Blood Moderate (NEG) Urine Nitrite Negative (NEG) Urine Bilirubin Negative (NEG) Urine Urobilinogen Dipstick 1.0 mg/dL (0.2 mg/dL) Urine Leukocyte Esterase Negative (NEG) Urine RBC 6-10 /HPF (0-2) Urine WBC 5-10 /HPF (0-4) Urine Squamous Epithelial Cells Occ /LPF Urine Bacteria 0 /HPF (0-FEW) Urine Hyaline Casts Occasional /HPF Urine Mucus Slight /LPF Urine Opiates Screen Neg (NEG) Urine Methadone Screen Neg (NEG) Urine Barbiturates Neg (NEG) Urine Phencyclidine Screen Neg (NEG) Urine Amphetamine/Methamphetamine Neg (NEG) Urine Benzodiazepines Screen Pos (NEG) Urine Cocaine Screen Neg (NEG) Urine Cannabinoids Screen Neg (NEG) Urine Ethyl Alcohol Neg (NEG) White Blood Count 8.1 x10^3/uL (4.0-11.0) Red Blood Count 3.84 x10^6/uL (3.50-5.40) Hemoglobin 11.3 g/dL (12.0-15.5) Hematocrit 34.5 % (36.0-47.0) Mean Corpuscular Volume 90 fL (79-100) Mean Corpuscular Hemoglobin 29 pg (25-35) Mean Corpuscular Hemoglobin Concent 33 g/dL (31-37) Red Cell Distribution Width 14.6 % (11.5-14.5) Platelet Count 330 x10^3/uL (140-400) Neutrophils (%) (Auto) 85 % (31-73) Lymphocytes (%) (Auto) 9 % (24-48) Monocytes (%) (Auto) 6 % (0-9) Eosinophils (%) (Auto) 0 % (0-3) Basophils (%) (Auto) 0 % (0-3) Neutrophils # (Auto) 6.9 x10^3uL (1.8-7.7) Lymphocytes # (Auto) 0.7 x10^3/uL (1.0-4.8) Monocytes # (Auto) 0.5 x10^3/uL (0.0-1.1) Eosinophils # (Auto) 0.0 x10^3/uL (0.0-0.7) Basophils # (Auto) 0.0 x10^3/uL (0.0-0.2) Segmented Neutrophils % 82 % (35-66) Band Neutrophils % 5 % (0-9) Lymphocytes % 7 % (24-48) Monocytes % 6 % (0-10) Platelet Estimate Adequate (ADEQUATE) Sodium Level 140 mmol/L (136-145) Potassium Level 4.2 mmol/L (3.5-5.1) Chloride Level 102 mmol/L (98-107) Carbon Dioxide Level 29 mmol/L (21-32) Anion Gap 9 (6-14) Blood Urea Nitrogen 23 mg/dL (7-20) Creatinine 1.0 mg/dL (0.6-1.0) Estimated GFR (Cockcroft-Gault) 55.8 BUN/Creatinine Ratio 23 (6-20) Glucose Level 118 mg/dL (70-99) Calcium Level 8.5 mg/dL (8.5-10.1) Total Bilirubin 0.6 mg/dL (0.2-1.0) Aspartate Amino Transf (AST/SGOT) 14 U/L (15-37) Alanine Aminotransferase (ALT/SGPT) 19 U/L (14-59) Alkaline Phosphatase 34 U/L (46-116) Total Protein 5.7 g/dL (6.4-8.2) Albumin 2.9 g/dL (3.4-5.0) Albumin/Globulin Ratio 1.0 (1.0-1.7) Medications Current Medications Methylprednisolone Sodium Succinate (SOLU-Medrol 125MG VIAL) 125 mg 1X ONCE IV Last administered on 11/14/18at 17:14; Start 11/14/18 at 16:45; Stop 11/14/18 at 16:46; Status DC Albuterol/ Ipratropium (Duoneb) 3 ml 1X ONCE NEB Last administered on 11/14/18at 17:04; Start 11/14/18 at 16:45; Stop 11/14/18 at 16:46; Status DC Ondansetron HCl (Zofran) 4 mg 1X ONCE IV Last administered on 11/14/18at 17:13; Start 11/14/18 at 17:00; Stop 11/14/18 at 17:01; Status DC Propofol 0 ml @ As Directed STK-MED ONCE IV ; Start 11/14/18 at 18:09; Stop 11/14/18 at 18:10; Status DC Etomidate (Amidate) 20 mg STK-MED ONCE IV ; Start 11/14/18 at 18:17; Stop 11/14/18 at 18:18; Status DC Rocuronium [place] (Zemuron) 50 mg STK-MED ONCE .ROUTE ; Start 11/14/18 at 18:17; Stop 11/14/18 at 18:18; Status DC Propofol 100 ml @ 0 mls/hr CONT PRN IV SEE PROTOCOL Last administered on 11/14/18at 18:00; Start 11/14/18 at 18:30; Stop 11/15/18 at 07:38; Status DC Chlorhexidine Gluconate (Peridex) 15 ml BID MM ; Start 11/14/18 at 21:00 Midazolam HCl 100 ml @ 0 mls/hr CONT PRN IV SEE PROTOCOL; Start 11/14/18 at 18:30; Stop 11/14/18 at 20:14; Status DC Cefepime HCl (Maxipime) 2 gm Q12HR IVP Last administered on 11/15/18at 09:52; Start 11/14/18 at 18:27 Azithromycin 250 ml @ 250 mls/hr 1X ONCE IV Last administered on 11/14/18at 22:56; Start 11/14/18 at 18:30; Stop 11/14/18 at 19:29; Status DC Vancomycin HCl (Vanco Per Pharmacy) 1 each PRN DAILY PRN MC SEE COMMENTS Last administered on 11/15/18at 10:17; Start 11/14/18 at 18:30 Propofol 50 ml @ 0 mls/hr 1X ONCE IV ; Start 11/14/18 at 18:30; Stop 11/14/18 at 18:31; Status DC Etomidate (Amidate) 20 mg 1X ONCE IV Last administered on 11/14/18at 18:11; Start 11/14/18 at 18:30; Stop 11/14/18 at 18:31; Status DC Rocuronium Munson (Zemuron) 50 mg 1X ONCE IV Last administered on 11/14/18at 18:11; Start 11/14/18 at 18:30; Stop 11/14/18 at 18:31; Status DC Sodium Chloride 1,000 ml @ 1,000 mls/hr 1X ONCE IV Last administered on 11/14/18at 18:11; Start 11/14/18 at 18:30; Stop 11/14/18 at 19:29; Status DC Vancomycin HCl 1.75 gm/Sodium Chloride 500 ml @ 250 mls/hr 1X ONCE IV Last administered on 11/14/18at 21:00; Start 11/14/18 at 19:00; Stop 11/14/18 at 20:59; Status DC Midazolam HCl 100 ml @ 5 mls/hr CONT PRN IV SEE I/O RECORD Last administered on 11/15/18at 06:05; Start 11/14/18 at 20:30 Sodium Chloride 1,000 ml @ 1,000 mls/hr 1X ONCE IV Last administered on 11/14/18at 21:07; Start 11/14/18 at 21:00; Stop 11/14/18 at 21:59; Status DC Methylprednisolone Sodium Succinate (SOLU-Medrol 125MG VIAL) 125 mg Q12HR IV Last administered on 11/15/18at 09:52; Start 11/15/18 at 09:00 Albuterol/ Ipratropium (Duoneb) 3 ml Q4HRS NEB ; Start 11/15/18 at 00:00; Status Cancel Sodium Chloride 1,000 ml @ 75 mls/hr [id number] IV Last administered on 11/15/18at 06:04; Start 11/14/18 at 22:00 Sodium Chloride 1,000 ml @ 999 mls/hr 1X ONCE IV ; Start 11/14/18 at 20:45; Stop 11/14/18 at 21:45; Status UNV Albuterol/ Ipratropium (Duoneb) 3 ml RTQID NEB ; Start 11/15/18 at 08:00; Stop 11/15/18 at 08:00; Status DC Albuterol Sulfate (Ventolin Neb Soln) 2.5 mg PRN Q4HRS PRN NEB SHORTNESS OF BREATH; Start 11/14/18 at 20:45 Norepinephrine Bitartrate 250 ml @ 1.875 mls/ hr CONT PRN IV SEE I/O RECORD Last administered on 11/15/18at 02:33; Start 11/14/18 at 22:30 Sodium Chloride 1,000 ml @ 999 mls/hr 1X ONCE IV Last administered on 11/14/18at 22:55; Start 11/14/18 at 23:00; Stop 11/15/18 at 00:00; Status DC Albuterol/ Ipratropium (Duoneb) 3 ml Q4HRS NEB Last administered on 11/15/18at 08:48; Start 11/15/18 at 00:00 Vancomycin HCl 1 gm/Sodium Chloride 250 ml @ 250 mls/hr Q12H IV Last administered on 11/15/18at 09:53; Start 11/15/18 at 09:00; Stop 11/15/18 at 12:00 Vancomycin HCl (Vancomycin Trough Level) 1 each 1X ONCE MC ; Start 11/16/18 at 20:30; Stop 11/16/18 at 20:31 Fentanyl Citrate 30 ml @ 0 mls/hr CONT PRN IV SEE PROTOCOL Last administered on 11/15/18at 09:09; Start 11/15/18 at 07:45 Sodium Chloride 1,000 ml @ 1,000 mls/hr 1X ONCE IV Last administered on 11/15/18at 09:54; Start 11/15/18 at 09:15; Stop 11/15/18 at 10:14; Status DC Famotidine (Pepcid Vial) 20 mg BID IVP Last administered on 11/15/18at 09:57; Start 11/15/18 at 10:00 Enoxaparin Sodium (Lovenox Per Pharmacy Prophylaxis Dosing) 1 each DAILY MC ; Start 11/16/18 at 09:00 Enoxaparin Sodium (Lovenox 40mg Syringe) 40 mg Q24H SQ Last administered on 11/15/18at 09:57; Start 11/15/18 at 10:00 Vancomycin HCl 1 gm/Sodium Chloride 250 ml @ 250 mls/hr Q18H IV ; Start 11/16/18 at 03:00 Active Scripts Active Guaifenesin Dm Syrup (Guaifenesin/Dextromethorphan) 5 Ml Syrup 10 Ml PO PRN Q6HRS PRN MDD 1 7 Days Reported Incruse Ellipta (Umeclidinium [place]) 62.5 Mcg Blst.w.dev 62.5 Mcg IH DAILY Breo Ellipta 100-25 Mcg Inh (Fluticasone/Vilanterol) 1 Each Aer.pow.ba 1 Puff IH DAILY Tudorza Pressair (Aclidinium [place]) 400 Mcg Aer.pow.ba 400 Mcg IH DAILY Vitals/I & O Vital Sign - Last 24 Hours 11/14/18 11/14/18 11/14/18 11/14/18 16:07 16:40 16:45 17:13 Temp 98.3 98.3 Pulse 79 94 Resp 18 16 B/P (MAP) 125/66 (85) Pulse Ox 97 97 91 92 O2 Delivery Nasal Cannula NonRebreather Mask BiPAP/CPAP O2 Flow Rate 3.0 15.0 11/14/18 11/14/18 11/14/18 11/14/18 17:55 18:28 18:40 19:00 Temp 98.6 98.6 Pulse 84 94 90 Resp 24 B/P (MAP) 77/54 (62) Pulse Ox 91 98 97 98 O2 Delivery Ventilator Ventilator 11/14/18 11/14/18 11/14/18 11/14/18 19:15 19:30 19:45 19:52 Temp 98.6 98.6 Pulse 92 84 78 90 Resp 24 24 24 24 B/P (MAP) 80/54 (63) 91/60 (70) 73/54 (60) 77/54 (62) Pulse Ox 98 98 98 98 O2 Delivery Ventilator Ventilator Ventilator Ventilator 11/14/18 11/14/18 11/14/18 11/14/18 20:00 20:00 20:24 21:00 Pulse 100 80 Resp 24 24 B/P (MAP) 93/44 (60) 97/62 (74) Pulse Ox 98 98 98 O2 Delivery Mechanical Ventilator Ventilator Ventilator Ventilator 11/14/18 11/14/18 11/14/18 11/14/18 22:00 22:41 23:00 23:59 Pulse 82 88 Resp 24 24 B/P (MAP) 91/64 (73) 96/66 (76) Pulse Ox 98 99 98 O2 Delivery Ventilator Ventilator Ventilator Mechanical Ventilator 11/14/18 11/15/18 11/15/18 11/15/18 23:59 01:00 01:13 02:00 Temp 99.5 99.5 Pulse 88 88 92 Resp 24 24 24 B/P (MAP) 90/55 (67) 84/56 (65) 93/57 (69) Pulse Ox 98 98 97 98 O2 Delivery Ventilator Ventilator Ventilator Ventilator 11/15/18 11/15/18 11/15/18 11/15/18 02:36 03:00 04:00 04:00 Temp 100.1 100.1 Pulse 100 94 93 Resp 24 24 24 B/P (MAP) 69/55 (60) 86/65 (72) 89/63 (72) Pulse Ox 97 98 98 O2 Delivery Ventilator Ventilator Mechanical Ventilator Ventilator 11/15/18 11/15/18 11/15/18 11/15/18 04:00 05:00 06:00 07:00 Temp 99.9 99.9 Pulse 93 82 91 Resp 24 24 24 B/P (MAP) 104/55 (71) 94/62 (73) 92/66 (75) Pulse Ox 98 99 99 98 O2 Delivery Ventilator Ventilator Ventilator Ventilator 11/15/18 11/15/18 11/15/18 11/15/18 08:00 08:00 08:50 09:00 Pulse 89 85 Resp 24 24 B/P (MAP) 101/70 (80) 108/78 (88) Pulse Ox 97 98 100 O2 Delivery Mechanical Ventilator Ventilator Ventilator Ventilator 11/15/18 11/15/18 11/15/18 09:09 09:39 10:13 Pulse 85 Resp 24 24 24 B/P (MAP) 178/91 (120) Pulse Ox 99 98 98 O2 Delivery Ventilator Ventilator Ventilator Intake and Output 11/14/18 11/14/18 11/15/18 14:59 22:59 06:59 Intake Total 211.3 ml Output Total 0 ml 490 ml Balance 0 ml -278.7 ml VON ROGERS MD Nov 15, 2018 10:39
[2018-11-15 12:11] LABS: BASE EXCESS ABG 2 mmol/L (-3-3); HCO3 ABG 24 mmol/L (21-28); PCO2 ABG 31 mmHg (35-46); PO2 ABG 127 mmHg (65-108); SAT O2 ABG 98 % (92-99)
[2018-11-15 12:14] LABS: FIO2 ABG 40
--- NOTE | 2018-11-15 12:38 | CARD ---
MR#: [id number] Date of Study: 11/15/2018 Ordering Physician: VON ROGERS, Referring Physician: JOSE RUBY Tech: Kirstin Dickerson RDCS APPROVED REPORT EXAM: LIMITED Two-dimensional and M-mode echocardiogram with Doppler and color Doppler. Other Information Quality : Technically LimitedHR: 80bpm Rhythm : NSRTechnically limited study due to patient being intubated. INDICATION Aortic Valve Disease 2D DIMENSIONS RVDd3.3 (2.9-3.5cm)IVSd0.8 (0.7-1.1cm) LVDd4.3 (3.9-5.9cm)LVOT Diameter2.1 (1.8-2.4cm) PWd0.6 (0.7-1.1cm)LVDs3.0 (2.5-4.0cm) FS (%) 30.7 %SV49.8 ml LVEF(%)58.5 (>50%) Aortic Valve AoV Peak Rashawn.317.5cm/sAoV VTI55.4cm AO Peak GR.40.3mmHgLVOT VTI 16.57cm AO Mean GR.20mmHgAVA (VTI)1.01cm2 Tricuspid Valve TR P. [id number] [id number] TR Peak Gr.[id number] LEFT VENTRICLE The left ventricle is normal size. There is normal left ventricular wall thickness. The left ventricu lar systolic function is normal. The Ejection Fraction is 55-60%. There is normal LV segmental wall m otion. RIGHT VENTRICLE The right ventricle is normal size. There is normal right ventricular wall thickness. The right ventr icular systolic function is normal. ATRIA The left atrium size is normal. The right atrium size is normal. The interatrial septum is intact wit h no evidence for an atrial septal defect or patent foramen ovale as noted on 2-D or Doppler imaging. AORTIC VALVE The aortic valve is moderately calcified. The aortic valve is trileaflet. Doppler and Color Flow reve aled no significant aortic regurgitation. There is moderate valvular aortic stenosis. Calculated aort ic valve area is 1.01 cm2 with maximum pressure gradient of 40 mmHg and mean pressure gradient of 20 mmHg. MITRAL VALVE The mitral valve is thickened but opens well. There is no evidence of mitral valve prolapse. There is no mitral valve stenosis. Doppler and Color-flow revealed trace mitral regurgitation. TRICUSPID VALVE The tricuspid valve is normal in structure and function. Doppler and Color Flow revealed trace tricus pid regurgitation. The PA pressure was estimated at 30 mmHg. There is no tricuspid valve prolapse or vegetation. There is no tricuspid valve stenosis. PULMONIC VALVE The pulmonic valve is not well visualized. GREAT VESSELS The aortic root is normal in size. The ascending aorta is normal in size. The IVC is normal in size a nd collapses >50% with inspiration. PERICARDIAL EFFUSION There is no evidence of significant pericardial effusion. Critical Notification Critical Value: No <Conclusion> The left ventricular systolic function is normal. The Ejection Fraction is 55-60%. There is normal LV segmental wall motion. Moderate valvular aortic stenosis. Trace mitral regurgitation. Trace tricuspid regurgitation. The PA pressure was estimated at 30 mmHg. There is no evidence of significant pericardial effusion. Signed by : Jatin Rich, Electronically Approved : 11/15/2018 12:37:57
--- NOTE | 2018-11-15 14:20 | PDOC2 ---
GLENNA WHEELER EDDY CURRENT INSPECTOR 11/15/18 1420: CARDIAC CONSULT DATE OF CONSULT Date of Consult DATE: 11/15/18 TIME: 13:59 REASON FOR CONSULT Reason for Consult: Shock, aortic stenosis REFERRING PHYSICIAN Referring Physician: Fullbright SOURCE Source: Chart review HISTORY OF PRESENT ILLNESS HISTORY OF PRESENT ILLNESS This is a 63 yo female admitted for noted altered mental status. She was noted to be confused. November 13 she saw her PCP to establish care and was doing ok at that time. No acute changes seen at that time or significant med changes at that time. She is significant for COPD and known moderate which has not changed with normal EF. She is currently intubated and per chart review she has no hx of CAD, VTE and actually quit tobacco about 2 yrs ago. She has been hospitalized multiple times this yr mainly due to her AECOPD. She also has RACHELLE and per staff she is not compliant of CPAP. No details in regards to any chest pain, passing out. PAST MEDICAL HISTORY Cardiovascular: Aortic stenosis Pulmonary: Asthma, COPD, Other (pulmonary nodules) GI: Other (aspiration) Psych: Anxiety Musculoskeletal: Osteoarthritis ENT: Other (KASHIA left) PAST SURGICAL HISTORY Past Surgical History: Cataract Removal, Other (vocal cord surgery ) FAMILY HISTORY Family History: Heart Disease (sister), Other (mother with colon and breast CA) SOCIAL HISTORY Smoke: Quit (2 yrs ago) ALCOHOL: none Drugs: None Lives: with Family (ex-spouse?) CURRENT MEDICATIONS CURRENT MEDICATIONS Current Medications Medications (Trade) Dose Ordered Sig/Mane Route PRN Reason Start Time Stop Time Status Last Admin Dose Admin Methylprednisolone Sodium Succinate (SOLU-Medrol 125MG VIAL) 125 mg 1X ONCE IV 11/14/18 16:45 11/14/18 16:46 DC 11/14/18 17:14 Albuterol/ Ipratropium (Duoneb) 3 ml 1X ONCE NEB 11/14/18 16:45 11/14/18 16:46 DC 11/14/18 17:04 Ondansetron HCl (Zofran) 4 mg 1X ONCE IV 11/14/18 17:00 11/14/18 17:01 DC 11/14/18 17:13 Propofol 100 ml @ 0 mls/hr CONT PRN IV SEE PROTOCOL 11/14/18 18:30 11/15/18 07:38 DC 11/14/18 18:00 Cefepime HCl (Maxipime) 2 gm Q12HR IVP 11/14/18 18:27 11/15/18 09:52 Azithromycin 250 ml @ 250 mls/hr 1X ONCE IV 11/14/18 18:30 11/14/18 19:29 DC 11/14/18 22:56 Vancomycin HCl (Vanco Per Pharmacy) 1 each PRN DAILY PRN MC SEE COMMENTS 11/14/18 18:30 11/15/18 10:17 Etomidate (Amidate) 20 mg 1X ONCE IV 11/14/18 18:30 11/14/18 18:31 DC 11/14/18 18:11 Rocuronium [place] (Zemuron) 50 mg 1X ONCE IV 11/14/18 18:30 11/14/18 18:31 DC 11/14/18 18:11 Sodium Chloride 1,000 ml @ 1,000 mls/hr 1X ONCE IV 11/14/18 18:30 11/14/18 19:29 DC 11/14/18 18:11 Vancomycin HCl 1.75 gm/Sodium Chloride 500 ml @ 250 mls/hr 1X ONCE IV 11/14/18 19:00 11/14/18 20:59 DC 11/14/18 21:00 Midazolam HCl 100 ml @ 5 mls/hr CONT PRN IV SEE I/O RECORD 11/14/18 20:30 11/15/18 06:05 Sodium Chloride 1,000 ml @ 1,000 mls/hr 1X ONCE IV 11/14/18 21:00 11/14/18 21:59 DC 11/14/18 21:07 Methylprednisolone Sodium Succinate (SOLU-Medrol 125MG VIAL) 125 mg Q12HR IV 11/15/18 09:00 11/15/18 09:52 Sodium Chloride 1,000 ml @ 75 mls/hr [id number] IV 11/14/18 22:00 11/15/18 06:04 Norepinephrine Bitartrate 250 ml @ 1.875 mls/ hr CONT PRN IV SEE I/O RECORD 11/14/18 22:30 11/15/18 02:33 Sodium Chloride 1,000 ml @ 999 mls/hr 1X ONCE IV 11/14/18 23:00 11/15/18 00:00 DC 11/14/18 22:55 Albuterol/ Ipratropium (Duoneb) 3 ml Q4HRS NEB 11/15/18 00:00 11/15/18 11:59 Vancomycin HCl 1 gm/Sodium Chloride 250 ml @ 250 mls/hr Q12H IV 11/15/18 09:00 11/15/18 12:00 DC 11/15/18 09:53 Fentanyl Citrate 30 ml @ 0 mls/hr CONT PRN IV SEE PROTOCOL 11/15/18 07:45 11/15/18 09:09 Sodium Chloride 1,000 ml @ 1,000 mls/hr 1X ONCE IV 11/15/18 09:15 11/15/18 10:14 DC 11/15/18 09:54 Famotidine (Pepcid Vial) 20 mg BID IVP 11/15/18 10:00 11/15/18 09:57 Enoxaparin Sodium (Lovenox 40mg Syringe) 40 mg Q24H SQ 11/15/18 10:00 11/15/18 09:57 ALLERGIES ALLERGIES: Coded Allergies: No Known Drug Allergies (Unverified , 07/11/17) ROS Review of System unreliable PHYSICAL EXAM General: Other (sedated) HEENT: Mucous membr. moist/pink Lungs: Other (diminisehd bases, intubated with vent) Heart: Regular rate (SR no ectopies), Other (3/6 systolic murmur to AKIN border) Abdomen: Soft, No tenderness Extremities: No cyanosis Skin: No breakdown, No significant lesion Neuro: Sensation intact Psych/Mental Status: Other (sedated) MUSCULOSKELETAL: Osteoarthritic changes both hands VITALS/I&O VITALS/I&O: Vital Signs Date Time Temp Pulse Resp B/P (MAP) Pulse Ox O2 Delivery O2 Flow Rate FiO2 11/15/18 13:15 98 Ventilator 11/15/18 13:00 80 18 156/73 (100) 11/15/18 12:00 98.9 98.9 11/14/18 16:40 15.0 I & O 11/14/18 11/14/18 11/15/18 15:00 23:00 07:00 Intake Total 211.3 ml Output Total 330 ml 175 ml Balance -330 ml 36.3 ml LABS Lab: Laboratory Tests Test 11/14/18 16:14 11/14/18 16:15 11/14/18 17:44 11/14/18 21:48 O2 Saturation 97 % (92-99) 94 % (92-99) 99 % (92-99) Arterial Blood pH 7.24 (7.35-7.45) L 7.13 (7.35-7.45) *L 7.49 (7.35-7.45) H Arterial Blood pCO2 at Patient Temp 116 mmHg (35-46) *H 152 mmHg (35-46) *H 42 mmHg (35-46) Arterial Blood pO2 at Patient Temp 109 mmHg (65-108) H 85 mmHg (65-108) 128 mmHg (65-108) H Arterial Blood HCO3 49 mmol/L (21-28) H 49 mmol/L (21-28) H 31 mmol/L (21-28) H Arterial Blood Base Excess 16 mmol/L (-3-3) H 14 mmol/L (-3-3) H 7 mmol/L (-3-3) H FiO2 100 % nrb 50 40 White Blood Count 9.0 x10^3/uL (4.0-11.0) Red Blood Count 4.23 x10^6/uL (3.50-5.40) Hemoglobin 12.5 g/dL (12.0-15.5) Hematocrit 38.2 % (36.0-47.0) Mean Corpuscular Volume 90 fL (79-100) Mean Corpuscular Hemoglobin 30 pg (25-35) Mean Corpuscular Hemoglobin Concent 33 g/dL (31-37) Red Cell Distribution Width 14.4 % (11.5-14.5) Platelet Count 321 x10^3/uL (140-400) Neutrophils (%) (Auto) 77 % (31-73) H Lymphocytes (%) (Auto) 13 % (24-48) L Monocytes (%) (Auto) 8 % (0-9) Eosinophils (%) (Auto) 1 % (0-3) Basophils (%) (Auto) 1 % (0-3) Neutrophils # (Auto) 7.0 x10^3uL (1.8-7.7) Lymphocytes # (Auto) 1.2 x10^3/uL (1.0-4.8) Monocytes # (Auto) 0.7 x10^3/uL (0.0-1.1) Eosinophils # (Auto) 0.1 x10^3/uL (0.0-0.7) Basophils # (Auto) 0.1 x10^3/uL (0.0-0.2) Prothrombin Time 11.3 SEC (11.7-14.0) L Prothrombin Time INR 0.9 (0.8-1.1) PTT 25 SEC (24-38) Sodium Level 141 mmol/L (136-145) Potassium Level 4.9 mmol/L (3.5-5.1) Chloride Level 97 mmol/L (98-107) L Carbon Dioxide Level 44 mmol/L (21-32) H Anion Gap 0 (6-14) L Blood Urea Nitrogen 13 mg/dL (7-20) Creatinine 0.6 mg/dL (0.6-1.0) Estimated GFR (Cockcroft-Gault) 100.6 BUN/Creatinine Ratio 22 (6-20) H Glucose Level 101 mg/dL (70-99) H Lactic Acid Level 0.3 mmol/L (0.4-2.0) L Calcium Level 9.0 mg/dL (8.5-10.1) Magnesium Level 2.2 mg/dL (1.8-2.4) Total Bilirubin 0.3 mg/dL (0.2-1.0) Aspartate Amino Transferase (AST) 15 U/L (15-37) Alanine Aminotransferase (ALT) 23 U/L (14-59) Alkaline Phosphatase 43 U/L (46-116) L Ammonia 24 mcmol/L (11-34) Troponin I Quantitative 0.020 ng/mL (0.000-0.055) KX-Rsw-R-Type Natriuretic Peptide 300 pg/mL (0-124) H Total Protein 6.1 g/dL (6.4-8.2) L Albumin 3.4 g/dL (3.4-5.0) Albumin/Globulin Ratio 1.3 (1.0-1.7) Ethyl Alcohol Level < 10 mg/dL (0-10) Test 11/14/18 23:15 11/15/18 03:20 11/15/18 08:00 Urine Collection Type U cath Urine Color Yellow Urine Clarity Turbid Urine pH 7.0 Urine Specific [place] 1.025 Urine Protein 100 mg/dL (NEG-TRACE) Urine Glucose (UA) Negative mg/dL (NEG) Urine Ketones (Stick) 40 mg/dL (NEG) Urine Blood Moderate (NEG) Urine Nitrite Negative (NEG) Urine Bilirubin Negative (NEG) Urine Urobilinogen Dipstick 1.0 mg/dL (0.2 mg/dL) Urine Leukocyte Esterase Negative (NEG) Urine RBC 6-10 /HPF (0-2) Urine WBC 5-10 /HPF (0-4) Urine Squamous Epithelial Cells Occ /LPF Urine Bacteria 0 /HPF (0-FEW) Urine Hyaline Casts Occasional /HPF Urine Mucus Slight /LPF Urine Opiates Screen Neg (NEG) Urine Methadone Screen Neg (NEG) Urine Barbiturates Neg (NEG) Urine Phencyclidine Screen Neg (NEG) Urine Amphetamine/Methamphetamine Neg (NEG) Urine Benzodiazepines Screen Pos (NEG) Urine Cocaine Screen Neg (NEG) Urine Cannabinoids Screen Neg (NEG) Urine Ethyl Alcohol Neg (NEG) White Blood Count 8.1 x10^3/uL (4.0-11.0) Red Blood Count 3.84 x10^6/uL (3.50-5.40) Hemoglobin 11.3 g/dL (12.0-15.5) L Hematocrit 34.5 % (36.0-47.0) L Mean Corpuscular Volume 90 fL (79-100) Mean Corpuscular Hemoglobin 29 pg (25-35) Mean Corpuscular Hemoglobin Concent 33 g/dL (31-37) Red Cell Distribution Width 14.6 % (11.5-14.5) H Platelet Count 330 x10^3/uL (140-400) Neutrophils (%) (Auto) 85 % (31-73) H Lymphocytes (%) (Auto) 9 % (24-48) L Monocytes (%) (Auto) 6 % (0-9) Eosinophils (%) (Auto) 0 % (0-3) Basophils (%) (Auto) 0 % (0-3) Neutrophils # (Auto) 6.9 x10^3uL (1.8-7.7) Lymphocytes # (Auto) 0.7 x10^3/uL (1.0-4.8) L Monocytes # (Auto) 0.5 x10^3/uL (0.0-1.1) Eosinophils # (Auto) 0.0 x10^3/uL (0.0-0.7) Basophils # (Auto) 0.0 x10^3/uL (0.0-0.2) Segmented Neutrophils % 82 % (35-66) H Band Neutrophils % 5 % (0-9) Lymphocytes % 7 % (24-48) L Monocytes % 6 % (0-10) Platelet Estimate Adequate (ADEQUATE) Sodium Level 140 mmol/L (136-145) Potassium Level 4.2 mmol/L (3.5-5.1) Chloride Level 102 mmol/L (98-107) Carbon Dioxide Level 29 mmol/L (21-32) Anion Gap 9 (6-14) Blood Urea Nitrogen 23 mg/dL (7-20) H Creatinine 1.0 mg/dL (0.6-1.0) Estimated GFR (Cockcroft-Gault) 55.8 BUN/Creatinine Ratio 23 (6-20) H Glucose Level 118 mg/dL (70-99) H Calcium Level 8.5 mg/dL (8.5-10.1) Total Bilirubin 0.6 mg/dL (0.2-1.0) Aspartate Amino Transferase (AST) 14 U/L (15-37) L Alanine Aminotransferase (ALT) 19 U/L (14-59) Alkaline Phosphatase 34 U/L (46-116) L Total Protein 5.7 g/dL (6.4-8.2) L Albumin 2.9 g/dL (3.4-5.0) L Albumin/Globulin Ratio 1.0 (1.0-1.7) Procalcitonin < 0.10 ng/mL (0.00-0.10) O2 Saturation 98 % (92-99) Arterial Blood pH 7.51 (7.35-7.45) H Arterial Blood pCO2 at Patient Temp 31 mmHg (35-46) L Arterial Blood pO2 at Patient Temp 127 mmHg (65-108) H Arterial Blood HCO3 24 mmol/L (21-28) Arterial Blood Base Excess 2 mmol/L (-3-3) FiO2 40 Laboratory Tests 11/14/18 16:15 11/15/18 03:20 Laboratory Tests 11/14/18 16:15 11/15/18 03:20 ECHOCARDIOGRAM ECHOCARDIOGRAM <Conclusion> The left ventricular systolic function is normal. The Ejection Fraction is 55-60%. There is normal LV segmental wall motion. Moderate valvular aortic stenosis. Trace mitral regurgitation. Trace tricuspid regurgitation. The PA pressure was estimated at 30 mmHg. There is no evidence of significant pericardial effusion. DATE: 11/15/18 1237 ASSESSMENT/PLAN ASSESSMENT/PLAN 1. Hypotension: due to severe acidemia. No noted BP meds at home. Better currently 2. Acute on chronic hypercapnic respiratory failure with AECOPD with potential aspiration. Likely Gold 3-4. Pulmonary following. 3. Moderate : EF and WM nml. 4. Metabolic encephalopathy 5. Anxiety: takes xanax at home 6. Prerenal azotemia 7. RACHELLE: noncompliant with CPAP Recommendations 1. IVF with bolus, titrate levophed 2. Intubated/vent, follow pulmonary recommendation 3. Supportive care. RAJSEH VEGA MD 11/15/18 2000: CARDIAC CONSULT ASSESSMENT/PLAN ASSESSMENT/PLAN Pt. seen and examined. Agree with above FLOOR SCRAPER note. 63 y.o with moderate and normal EF. No indication for any cardiac intervention on the valve. Based on CO2 retention, this appears mostly a pulmonary issue. Could consider angiography if this is felt to be secondary to HF but less likely. Supportive care. Thanks GLENNA WHEELER APRN Nov 15, 2018 14:20 RAJESH VEGA MD Nov 15, 2018 20:00
--- NOTE | 2018-11-15 14:49 | NUR ---
SS following for discharge planning. SS reviewed pt chart. Pt is from home and is currently on the vent. No discharge needs noted at this time. SS will continue to follow for discharge planning.
[2018-11-15 15:44] LABS: CHOLESTEROL/HDL RATIO 2.1
[2018-11-15] MEDS: PROPOFOL 100 ML IV PRN (17:15)
[2018-11-15] MEDS: ALBUTEROL SULFATE 2.5 MG/3 ML NEBU. NEB PRN (20:23)
[2018-11-16] VITALS (24 sets, daily range): BP systolic 102–159; BP diastolic 50–78
[2018-11-16] MEDS: IV NORMAL SALINE 1000ML BAG 1,000 ML IV SCH ×2 (00:18→13:46)
[2018-11-16] MEDS ORDERED: VANCOMYCIN 1 GM in IV NORMAL SALINE 250ML 250 ML IV SCH (03:00)
[2018-11-16] MEDS: IPRATRPIUM/ALBUTEROL 0.5/2.5MG 3 ML NEBU. NEB SCH ×6 (03:55→23:30)
[2018-11-16 04:26] LABS: BASO % 0 % (0-3); EOS % 0 % (0-3); HEMATOCRIT 31.6 % (36.0-47.0); HEMOGLOBIN 10.5 g/dL (12.0-15.5); LYMPH # 0.7 x10^3/uL (1.0-4.8); LYMPH % 8 % (24-48); MEAN CORPUSCULAR HEMOGLOBIN 30 pg (25-35); MEAN CORPUSCULAR HGB CONC 33 g/dL (31-37); MEAN CORPUSCULAR VOLUME 89 fL (79-100); MONO # 0.2 x10^3/uL (0.0-1.1); MONO % 3 % (0-9); NEUT # 7.6 x10^3/uL (1.8-7.7); NEUT % 89 % (31-73); PLATELET COUNT 261 x10^3/uL (140-400); RED BLOOD COUNT 3.57 x10^6/uL (3.50-5.40); RED CELL DISTRIBUTION WIDTH 14.5 % (11.5-14.5); WHITE BLOOD COUNT 8.6 x10^3/uL (4.0-11.0)
[2018-11-16 04:46] LABS: ALBUMIN 2.8 g/dL (3.4-5.0); CALCIUM 8.7 mg/dL (8.5-10.1); CREATININE 0.7 mg/dL (0.6-1.0); GFR 84.2; POTASSIUM 3.9 mmol/L (3.5-5.1); TOTAL BILIRUBIN 0.3 mg/dL (0.2-1.0); TOTAL PROTEIN 5.7 g/dL (6.4-8.2)
[2018-11-16] MEDS: PROPOFOL 100 ML IV PRN (04:48)
--- NOTE | 2018-11-16 08:32 | CONS ---
DATE OF CONSULTATION: 11/16/2018 REFERRING PHYSICIAN: Fox Lewis M.D. REASON FOR CONSULTATION: Sepsis. HISTORY OF PRESENT ILLNESS: A 63-year-old female with history of COPD, presented to the ER with complaints of worsening shortness of breath, weakness and confusion. The patient was found to have respiratory acidosis with a CO2 at 116. Initially she was placed on BiPAP, but then required intubation. The patient was hypotensive, requiring fluid bolus. Temperature was 100.1 when she arrived to the ICU. White count was normal with normal hemoglobin, hematocrit and platelet count. The patient had normal lactic acid. ProBNP at 300. Chest x-ray showed increased reticular opacity in the left lung base, which may be due to infiltrate or atelectasis, suspected emphysema. Blood cultures were done, which are negative so far. UA showed 5-10 wbc's, but negative leukocyte esterase, moderate blood. Nasal MRSA screen PCR was negative. UDS was positive for benzodiazepine, negative for ethyl alcohol. The patient was started on empiric IV vancomycin and cefepime. ID consult has been requested for antibiotic management. The patient underwent echocardiogram, which showed moderate aortic stenosis. Today, the patient remains intubated. Per RN, the patient is not on any pressors. She is responsive. No other acute issues overnight. REVIEW OF SYSTEMS: Unable to obtain. PAST MEDICAL HISTORY: Aortic stenosis, suspected COPD, asthma, anxiety, osteoarthritis. PAST SURGICAL HISTORY: Cataract removal, vocal cord surgery. FAMILY HISTORY: As per HPI. SOCIAL HISTORY: Quit smoking 2 years ago. No alcohol, no drugs. Lives with family. CURRENT MEDICATIONS: IV vancomycin, methylprednisolone, cefepime, also got a dose of azithromycin once. Other medications reviewed in medication list are also fentanyl and propofol. ALLERGIES: No known drug allergies. PHYSICAL EXAMINATION: VITAL SIGNS: Temperature is 98.6, pulse 59, respiratory rate 18, blood pressure 159/75, oxygen saturation 96% on ventilator, 40% FiO2. T-max is 100.1. GENERAL: Intubated, arousable female, appears comfortable. HEENT: Normocephalic, atraumatic, anicteric. No thrush. Oral mucosa is moist. ETT is in place. NECK: Supple. LUNGS: Decreased breath sounds at the bases. No wheezing. HEART: S1, S2. Systolic murmur present. ABDOMEN: Soft, nontender, nondistended, no rebound, no guarding. EXTREMITIES: No cyanosis, no clubbing. No edema. DERMATOLOGIC: Warm, dry. No generalized rash. NEUROLOGIC: Intubated, arousable, appears comfortable. LABORATORY DATA: WBC is 8.6, hemoglobin 10.5, hematocrit 31.6, platelets 261, and neutrophils 89%. Sodium is 143, potassium 3.9, chloride 107, bicarbonate 28, BUN 24, creatinine 0.7, and glucose 132. Lactate is 0.3. Total bilirubin is 0.3, AST 13, ALT 17, and alkaline phosphatase 36. Ammonia is 24, total protein 5.7, and albumin 2.7. Procalcitonin is less than 0.10. Nasal MRSA screen is negative. MICRO: Blood culture and urine culture pending at this time. IMAGING: Chest x-ray reviewed. IMPRESSION: 1. Hypotension, questionable sepsis. 2. Acute on chronic respiratory failure. 3. Suspected emphysema. 4. Moderate aortic stenosis. 5. Encephalopathy, likely metabolic, improving. 6. Anxiety. 7. Obstructive sleep apnea. 8. Protein-calorie malnutrition. 9. Anemia. RECOMMENDATIONS: 1. Discontinue IV vancomycin. 2. Continue empiric cefepime. 3. Follow up cultures and lab. 4. Continue supportive care. 5. Discussed with RN. Thank you for allowing Infectious Disease to participate in this patient's care. We will follow along with you. VON BAUGH MD DR: WENDY/amrik JOB#: [id number] / [id number]
--- NOTE | 2018-11-16 08:40 | PDOC ---
PROGRESS NOTES Chief Complaint Chief Complaint 63 old female who is an ex-smoker, admitted again for COPD exacerbation, needing intubation History of Present Illness History of Present Illness Assessment/Plan Assessment/Plan acute hypercarbic respiratory failure, critical pH and PCO2 levels metabolic encephalopathy acute hypoxia COPD with acute bronchitis exacerbation of chronic obstructive pulmonary disease shock. likely a combination of hypovolemic and septic shock. RECENT ECHO 09/24 Transmitral Doppler flow pattern is Grade I-abnormal relaxation pattern. Moderate aortic stenosis. Trace mitral regurgitation. Trace tricuspid regurgitation. The PA pressure was estimated at 36 mmHg. Small bilateral lung nodules. follow-up noncontrast chest CT SOON per Fleischner guidelines. MODERATE PROTEIN-CALORIC MALNUTRITION admitted to ICU, pulm consult ID CONSULT CARDIOLOGY CONSULT/// RE SHOCK, AORTIC STENOSIS Deep venous thrombosis prophylaxis. Stress ulcer prophylaxis. d/c vanc Wean Levophed to keep systolic pressure above 100. D/W RN 33 min CC TIME Vitals Vitals Vital Signs Date Time Temp Pulse Resp B/P (MAP) Pulse Ox O2 Delivery O2 Flow Rate FiO2 11/16/18 06:00 59 18 159/75 (103) 96 Ventilator 11/16/18 05:20 15.0 11/16/18 04:00 98.6 98.6 Physical Exam Physical Exam Lungs: (DISTANT ON vent) Heart: S1S2, other GR 2/6 AVNI Abdomen: Soft Extremities: No clubbing, No cyanosis, No edema Skin: No breakdown Psych/Mental Status: Other (sedated) General: Other (sedated on vent) Heart: Regular rate (SR no ectopies), Other (3/6 systolic murmur to AKIN border) Lungs: Clear Abdomen: Soft, No tenderness Extremities: No cyanosis Skin: No breakdown, No significant lesion Labs LABS Mitral Valve MV E Velocity 92.3cm/s MV DECEL TIME 234ms MV A Velocity 112.8cm/s E/A Ratio 0.8 Tricuspid Valve TR P. Velocity 289cm/s RAP ESTIMATE 3mmHg TR Peak Gr. 33mmHg RVSP 36mmHg Pulmonary Vein S1 Velocity 67.4cm/s D2 Velocity 49.2cm/s LEFT VENTRICLE The left ventricle is normal size. There is normal left ventricular wall thickness. The left ventricular systolic function is normal. The Ejection Fraction is 55-60%. There is normal LV segmental wall motion. Transmitral D oppler flow pattern is Grade I-abnormal relaxation pattern. RIGHT VENTRICLE The right ventricle is normal size. The right ventricular systolic function is normal. ATRIA The left atrium size is normal. The right atrium size is normal. The interatrial septum is intact with no evidence for an atrial septal defect or patent foramen ovale as noted on 2-D or Doppler imaging. AORTIC VALVE The aortic valve is not well visualized but moderately thickened and appears to have some decreased opening. Doppler and Color Flow revealed no significant aortic regurgitation. Calculated aortic valve area is 1.3 cm2 with maximum pressure gradient of 53 mmHg and mean pressure gradient of 28 mmHg. Doppler and color-flow analysis revealed moderate aortic stenosis. MITRAL VALVE The mitral valve is calcified but opens well. Mitral annular calcification is mild. There is no evidence of mitral valve prolapse. There is no mitral valve stenosis. Doppler and Color-flow revealed trace mitral regurgitation. TRICUSPID VALVE The tricuspid valve is normal in structure and function. Doppler and Color Flow revealed trace tricuspid regurgitation. There is mild pulmonary hypertension. The PA pressure was estimated at 36 mmHg. There is no tricuspid valve stenosis. PULMONIC VALVE The pulmonic valve is not well visualized. Doppler and Color Flow revealed no pulmonic valvular regurgitation. There is no pulmonic valvular stenosis. GREAT VESSELS The aortic root is normal in size. The ascending aorta is not well seen. The IVC is normal in size and collapses >50% with inspiration. PERICARDIAL EFFUSION There is no evidence of significant pericardial effusion. Critical Notification Critical Value: No <Conclusion> The left ventricular systolic function is normal. The Ejection Fraction is 55-60%. There is normal LV segmental wall motion. Transmitral Doppler flow pattern is Grade I-abnormal relaxation pattern. Moderate aortic stenosis. Trace mitral regurgitation. Trace tricuspid regurgitation. The PA pressure was estimated at 36 mmHg. There is no evidence of significant pericardial effusion. Signed by : Jatin Rich, Electronically Approved : 10/03/2018 11:17:50 PATIENT: BENITO MARQUEZ ACCT: [id number] LOC: 1 [facility] ICU U: [id number] AGE/SX: 63/F ROOM: 114 RE11/14/[address]: JOSE RUBY MD : [id number] BED: 1 DIS : STATUS: ADM IN TLOC: SPEC #: [id number] NEGRO: 11/14/18 STATUS: RES REQ #: [id number] RECD: 11/14/[address]: JACOB VAZQUEZ DO SOURCE: BLOOD ENTR: 11/14/[address]: UNKNOWN PCP NAME SPDESC: ORDERED: BCULT ------ Procedure Result BLOOD CULTURE Preliminary NO GROWTH AFTER 1 DAY INDICATION: Ventilated COMPARISON: November 15, 2018 TECHNIQUE: Frontal view of the chest is provided. FINDINGS: The cardiomediastinal silhouette is within normal limits. Endotracheal tube terminates 5 cm above the level of the lucien. Nasogastric tube is in similar position. There are no pleural effusions. There is no pulmonary vascular congestion. There is no pneumothorax. Pulmonary emphysematous changes are present The lungs are clear. No significant osseous abnormality is identified. IMPRESSION: Stable lines and tubes. Aeration of lungs appears similar compared to the prior examination. Electronically signed by: Inessa Stokes MD (11/16/2018 8:35 AM) [id number] Laboratory Tests Test 11/16/18 04:05 White Blood Count 8.6 x10^3/uL (4.0-11.0) Red Blood Count 3.57 x10^6/uL (3.50-5.40) Hemoglobin 10.5 g/dL (12.0-15.5) Hematocrit 31.6 % (36.0-47.0) Mean Corpuscular Volume 89 fL (79-100) Mean Corpuscular Hemoglobin 30 pg (25-35) Mean Corpuscular Hemoglobin Concent 33 g/dL (31-37) Red Cell Distribution Width 14.5 % (11.5-14.5) Platelet Count 261 x10^3/uL (140-400) Neutrophils (%) (Auto) 89 % (31-73) Lymphocytes (%) (Auto) 8 % (24-48) Monocytes (%) (Auto) 3 % (0-9) Eosinophils (%) (Auto) 0 % (0-3) Basophils (%) (Auto) 0 % (0-3) Neutrophils # (Auto) 7.6 x10^3/uL (1.8-7.7) Lymphocytes # (Auto) 0.7 x10^3/uL (1.0-4.8) Monocytes # (Auto) 0.2 x10^3/uL (0.0-1.1) Eosinophils # (Auto) 0.0 x10^3/uL (0.0-0.7) Basophils # (Auto) 0.0 x10^3/uL (0.0-0.2) Sodium Level 143 mmol/L (136-145) Potassium Level 3.9 mmol/L (3.5-5.1) Chloride Level 107 mmol/L (98-107) Carbon Dioxide Level 28 mmol/L (21-32) Anion Gap 8 (6-14) Blood Urea Nitrogen 24 mg/dL (7-20) Creatinine 0.7 mg/dL (0.6-1.0) Estimated GFR (Cockcroft-Gault) 84.2 BUN/Creatinine Ratio 34 (6-20) Glucose Level 132 mg/dL (70-99) Calcium Level 8.7 mg/dL (8.5-10.1) Total Bilirubin 0.3 mg/dL (0.2-1.0) Aspartate Amino Transf (AST/SGOT) 13 U/L (15-37) Alanine Aminotransferase (ALT/SGPT) 17 U/L (14-59) Alkaline Phosphatase 36 U/L (46-116) Total Protein 5.7 g/dL (6.4-8.2) Albumin 2.8 g/dL (3.4-5.0) Albumin/Globulin Ratio 1.0 (1.0-1.7) Assessment and Plan Assessmemt and Plan Problems Medical Problems: (1) Acute hypercapnic respiratory failure Status: Acute Assessment/Plan Assessment/Plan acute hypercarbic respiratory failure, critical pH and PCO2 levels metabolic encephalopathy acute hypoxia COPD with acute bronchitis exacerbation of chronic obstructive pulmonary disease shock. likely a combination of hypovolemic and septic shock. RECENT ECHO 09/24 Transmitral Doppler flow pattern is Grade I-abnormal relaxation pattern. Moderate aortic stenosis. Trace mitral regurgitation. Trace tricuspid regurgitation. The PA pressure was estimated at 36 mmHg. Small bilateral lung nodules. follow-up noncontrast chest CT SOON per Fleischner guidelines. MODERATE PROTEIN-CALORIC MALNUTRITION admitted to ICU, pulm consult ID CONSULT CARDIOLOGY CONSULT/// RE SHOCK, AORTIC STENOSIS Deep venous thrombosis prophylaxis. Stress ulcer prophylaxis. D/W RN 37 min CC TIME Comment Review of Relevant I have reviewed the following items heaven (where applicable) has been applied. Labs Laboratory Tests Test 11/14/18 16:14 11/14/18 16:15 11/14/18 17:44 11/14/18 21:00 O2 Saturation 97 % (92-99) 94 % (92-99) Arterial Blood pH 7.24 (7.35-7.45) 7.13 (7.35-7.45) Arterial Blood pCO2 at Patient Temp 116 mmHg (35-46) 152 mmHg (35-46) Arterial Blood pO2 at Patient Temp 109 mmHg (65-108) 85 mmHg (65-108) Arterial Blood HCO3 49 mmol/L (21-28) 49 mmol/L (21-28) Arterial Blood Base Excess 16 mmol/L (-3-3) 14 mmol/L (-3-3) FiO2 100 % nrb 50 White Blood Count 9.0 x10^3/uL (4.0-11.0) Red Blood Count 4.23 x10^6/uL (3.50-5.40) Hemoglobin 12.5 g/dL (12.0-15.5) Hematocrit 38.2 % (36.0-47.0) Mean Corpuscular Volume 90 fL (79-100) Mean Corpuscular Hemoglobin 30 pg (25-35) Mean Corpuscular Hemoglobin Concent 33 g/dL (31-37) Red Cell Distribution Width 14.4 % (11.5-14.5) Platelet Count 321 x10^3/uL (140-400) Neutrophils (%) (Auto) 77 % (31-73) Lymphocytes (%) (Auto) 13 % (24-48) Monocytes (%) (Auto) 8 % (0-9) Eosinophils (%) (Auto) 1 % (0-3) Basophils (%) (Auto) 1 % (0-3) Neutrophils # (Auto) 7.0 x10^3uL (1.8-7.7) Lymphocytes # (Auto) 1.2 x10^3/uL (1.0-4.8) Monocytes # (Auto) 0.7 x10^3/uL (0.0-1.1) Eosinophils # (Auto) 0.1 x10^3/uL (0.0-0.7) Basophils # (Auto) 0.1 x10^3/uL (0.0-0.2) Prothrombin Time 11.3 SEC (11.7-14.0) Prothromb Time International Ratio 0.9 (0.8-1.1) Activated Partial Thromboplast Time 25 SEC (24-38) Sodium Level 141 mmol/L (136-145) Potassium Level 4.9 mmol/L (3.5-5.1) Chloride Level 97 mmol/L (98-107) Carbon Dioxide Level 44 mmol/L (21-32) Anion Gap 0 (6-14) Blood Urea Nitrogen 13 mg/dL (7-20) Creatinine 0.6 mg/dL (0.6-1.0) Estimated GFR (Cockcroft-Gault) 100.6 BUN/Creatinine Ratio 22 (6-20) Glucose Level 101 mg/dL (70-99) Lactic Acid Level 0.3 mmol/L (0.4-2.0) Calcium Level 9.0 mg/dL (8.5-10.1) Magnesium Level 2.2 mg/dL (1.8-2.4) Total Bilirubin 0.3 mg/dL (0.2-1.0) Aspartate Amino Transf (AST/SGOT) 15 U/L (15-37) Alanine Aminotransferase (ALT/SGPT) 23 U/L (14-59) Alkaline Phosphatase 43 U/L (46-116) Ammonia 24 mcmol/L (11-34) Troponin I Quantitative 0.020 ng/mL (0.000-0.055) IQ-Aso-B-Type Natriuretic Peptide 300 pg/mL (0-124) Total Protein 6.1 g/dL (6.4-8.2) Albumin 3.4 g/dL (3.4-5.0) Albumin/Globulin Ratio 1.3 (1.0-1.7) Ethyl Alcohol Level < 10 mg/dL (0-10) Nasal Screen MRSA (PCR) Negative (Negative) Test 11/14/18 21:48 11/14/18 23:15 11/15/18 03:20 11/15/18 08:00 O2 Saturation 99 % (92-99) 98 % (92-99) Arterial Blood pH 7.49 (7.35-7.45) 7.51 (7.35-7.45) Arterial Blood pCO2 at Patient Temp 42 mmHg (35-46) 31 mmHg (35-46) Arterial Blood pO2 at Patient Temp 128 mmHg (65-108) 127 mmHg (65-108) Arterial Blood HCO3 31 mmol/L (21-28) 24 mmol/L (21-28) Arterial Blood Base Excess 7 mmol/L (-3-3) 2 mmol/L (-3-3) FiO2 40 40 Urine Collection Type U cath Urine Color Yellow Urine Clarity Turbid Urine pH 7.0 Urine Specific [place] 1.025 Urine Protein 100 mg/dL (NEG-TRACE) Urine Glucose (UA) Negative mg/dL (NEG) Urine Ketones (Stick) 40 mg/dL (NEG) Urine Blood Moderate (NEG) Urine Nitrite Negative (NEG) Urine Bilirubin Negative (NEG) Urine Urobilinogen Dipstick 1.0 mg/dL (0.2 mg/dL) Urine Leukocyte Esterase Negative (NEG) Urine RBC 6-10 /HPF (0-2) Urine WBC 5-10 /HPF (0-4) Urine Squamous Epithelial Cells Occ /LPF Urine Bacteria 0 /HPF (0-FEW) Urine Hyaline Casts Occasional /HPF Urine Mucus Slight /LPF Urine Opiates Screen Neg (NEG) Urine Methadone Screen Neg (NEG) Urine Barbiturates Neg (NEG) Urine Phencyclidine Screen Neg (NEG) Urine Amphetamine/Methamphetamine Neg (NEG) Urine Benzodiazepines Screen Pos (NEG) Urine Cocaine Screen Neg (NEG) Urine Cannabinoids Screen Neg (NEG) Urine Ethyl Alcohol Neg (NEG) White Blood Count 8.1 x10^3/uL (4.0-11.0) Red Blood Count 3.84 x10^6/uL (3.50-5.40) Hemoglobin 11.3 g/dL (12.0-15.5) Hematocrit 34.5 % (36.0-47.0) Mean Corpuscular Volume 90 fL (79-100) Mean Corpuscular Hemoglobin 29 pg (25-35) Mean Corpuscular Hemoglobin Concent 33 g/dL (31-37) Red Cell Distribution Width 14.6 % (11.5-14.5) Platelet Count 330 x10^3/uL (140-400) Neutrophils (%) (Auto) 85 % (31-73) Lymphocytes (%) (Auto) 9 % (24-48) Monocytes (%) (Auto) 6 % (0-9) Eosinophils (%) (Auto) 0 % (0-3) Basophils (%) (Auto) 0 % (0-3) Neutrophils # (Auto) 6.9 x10^3uL (1.8-7.7) Lymphocytes # (Auto) 0.7 x10^3/uL (1.0-4.8) Monocytes # (Auto) 0.5 x10^3/uL (0.0-1.1) Eosinophils # (Auto) 0.0 x10^3/uL (0.0-0.7) Basophils # (Auto) 0.0 x10^3/uL (0.0-0.2) Segmented Neutrophils % 82 % (35-66) Band Neutrophils % 5 % (0-9) Lymphocytes % 7 % (24-48) Monocytes % 6 % (0-10) Platelet Estimate Adequate (ADEQUATE) Sodium Level 140 mmol/L (136-145) Potassium Level 4.2 mmol/L (3.5-5.1) Chloride Level 102 mmol/L (98-107) Carbon Dioxide Level 29 mmol/L (21-32) Anion Gap 9 (6-14) Blood Urea Nitrogen 23 mg/dL (7-20) Creatinine 1.0 mg/dL (0.6-1.0) Estimated GFR (Cockcroft-Gault) 55.8 BUN/Creatinine Ratio 23 (6-20) Glucose Level 118 mg/dL (70-99) Calcium Level 8.5 mg/dL (8.5-10.1) Total Bilirubin 0.6 mg/dL (0.2-1.0) Aspartate Amino Transf (AST/SGOT) 14 U/L (15-37) Alanine Aminotransferase (ALT/SGPT) 19 U/L (14-59) Alkaline Phosphatase 34 U/L (46-116) Total Protein 5.7 g/dL (6.4-8.2) Albumin 2.9 g/dL (3.4-5.0) Albumin/Globulin Ratio 1.0 (1.0-1.7) Triglycerides Level 53 mg/dL (0-150) Cholesterol Level 164 mg/dL (0-200) LDL Cholesterol, Calculated 74 mg/dL (0-100) VLDL Cholesterol, Calculated 11 mg/dL (0-40) Non-HDL Cholesterol Calculated 85 mg/dL (0-129) HDL Cholesterol 79 mg/dL (40-60) Cholesterol/HDL Ratio 2.1 Procalcitonin < 0.10 ng/mL (0.00-0.10) Test 11/16/18 04:05 White Blood Count 8.6 x10^3/uL (4.0-11.0) Red Blood Count 3.57 x10^6/uL (3.50-5.40) Hemoglobin 10.5 g/dL (12.0-15.5) Hematocrit 31.6 % (36.0-47.0) Mean Corpuscular Volume 89 fL (79-100) Mean Corpuscular Hemoglobin 30 pg (25-35) Mean Corpuscular Hemoglobin Concent 33 g/dL (31-37) Red Cell Distribution Width 14.5 % (11.5-14.5) Platelet Count 261 x10^3/uL (140-400) Neutrophils (%) (Auto) 89 % (31-73) Lymphocytes (%) (Auto) 8 % (24-48) Monocytes (%) (Auto) 3 % (0-9) Eosinophils (%) (Auto) 0 % (0-3) Basophils (%) (Auto) 0 % (0-3) Neutrophils # (Auto) 7.6 x10^3/uL (1.8-7.7) Lymphocytes # (Auto) 0.7 x10^3/uL (1.0-4.8) Monocytes # (Auto) 0.2 x10^3/uL (0.0-1.1) Eosinophils # (Auto) 0.0 x10^3/uL (0.0-0.7) Basophils # (Auto) 0.0 x10^3/uL (0.0-0.2) Sodium Level 143 mmol/L (136-145) Potassium Level 3.9 mmol/L (3.5-5.1) Chloride Level 107 mmol/L (98-107) Carbon Dioxide Level 28 mmol/L (21-32) Anion Gap 8 (6-14) Blood Urea Nitrogen 24 mg/dL (7-20) Creatinine 0.7 mg/dL (0.6-1.0) Estimated GFR (Cockcroft-Gault) 84.2 BUN/Creatinine Ratio 34 (6-20) Glucose Level 132 mg/dL (70-99) Calcium Level 8.7 mg/dL (8.5-10.1) Total Bilirubin 0.3 mg/dL (0.2-1.0) Aspartate Amino Transf (AST/SGOT) 13 U/L (15-37) Alanine Aminotransferase (ALT/SGPT) 17 U/L (14-59) Alkaline Phosphatase 36 U/L (46-116) Total Protein 5.7 g/dL (6.4-8.2) Albumin 2.8 g/dL (3.4-5.0) Albumin/Globulin Ratio 1.0 (1.0-1.7) Laboratory Tests Test 11/16/18 04:05 White Blood Count 8.6 x10^3/uL (4.0-11.0) Red Blood Count 3.57 x10^6/uL (3.50-5.40) Hemoglobin 10.5 g/dL (12.0-15.5) Hematocrit 31.6 % (36.0-47.0) Mean Corpuscular Volume 89 fL (79-100) Mean Corpuscular Hemoglobin 30 pg (25-35) Mean Corpuscular Hemoglobin Concent 33 g/dL (31-37) Red Cell Distribution Width 14.5 % (11.5-14.5) Platelet Count 261 x10^3/uL (140-400) Neutrophils (%) (Auto) 89 % (31-73) Lymphocytes (%) (Auto) 8 % (24-48) Monocytes (%) (Auto) 3 % (0-9) Eosinophils (%) (Auto) 0 % (0-3) Basophils (%) (Auto) 0 % (0-3) Neutrophils # (Auto) 7.6 x10^3/uL (1.8-7.7) Lymphocytes # (Auto) 0.7 x10^3/uL (1.0-4.8) Monocytes # (Auto) 0.2 x10^3/uL (0.0-1.1) Eosinophils # (Auto) 0.0 x10^3/uL (0.0-0.7) Basophils # (Auto) 0.0 x10^3/uL (0.0-0.2) Sodium Level 143 mmol/L (136-145) Potassium Level 3.9 mmol/L (3.5-5.1) Chloride Level 107 mmol/L (98-107) Carbon Dioxide Level 28 mmol/L (21-32) Anion Gap 8 (6-14) Blood Urea Nitrogen 24 mg/dL (7-20) Creatinine 0.7 mg/dL (0.6-1.0) Estimated GFR (Cockcroft-Gault) 84.2 BUN/Creatinine Ratio 34 (6-20) Glucose Level 132 mg/dL (70-99) Calcium Level 8.7 mg/dL (8.5-10.1) Total Bilirubin 0.3 mg/dL (0.2-1.0) Aspartate Amino Transf (AST/SGOT) 13 U/L (15-37) Alanine Aminotransferase (ALT/SGPT) 17 U/L (14-59) Alkaline Phosphatase 36 U/L (46-116) Total Protein 5.7 g/dL (6.4-8.2) Albumin 2.8 g/dL (3.4-5.0) Albumin/Globulin Ratio 1.0 (1.0-1.7) Microbiology 11/14/18 Blood Culture - Preliminary, Resulted NO GROWTH AFTER 1 DAY Medications Current Medications Methylprednisolone Sodium Succinate (SOLU-Medrol 125MG VIAL) 125 mg 1X ONCE IV Last administered on 11/14/18at 17:14; Start 11/14/18 at 16:45; Stop 11/14/18 at 16:46; Status DC Albuterol/ Ipratropium (Duoneb) 3 ml 1X ONCE NEB Last administered on 11/14/18at 17:04; Start 11/14/18 at 16:45; Stop 11/14/18 at 16:46; Status DC Ondansetron HCl (Zofran) 4 mg 1X ONCE IV Last administered on 11/14/18at 17:13; Start 11/14/18 at 17:00; Stop 11/14/18 at 17:01; Status DC Propofol 0 ml @ As Directed STK-MED ONCE IV ; Start 11/14/18 at 18:09; Stop 11/14/18 at 18:10; Status DC Etomidate (Amidate) 20 mg STK-MED ONCE IV ; Start 11/14/18 at 18:17; Stop 11/14/18 at 18:18; Status DC Rocuronium [place] (Zemuron) 50 mg STK-MED ONCE .ROUTE ; Start 11/14/18 at 18:17; Stop 11/14/18 at 18:18; Status DC Propofol 100 ml @ 0 mls/hr CONT PRN IV SEE PROTOCOL Last administered on 11/14at 18:00; Start 11/14/18 at 18:30; Stop 11/15/18 at 07:38; Status DC Chlorhexidine Gluconate (Peridex) 15 ml BID MM ; Start 11/14/18 at 21:00; Stop 11/15/18 at 16:12; Status DC Midazolam HCl 100 ml @ 0 mls/hr CONT PRN IV SEE PROTOCOL; Start 11/14/18 at 18:30; Stop 11/14/18 at 20:14; Status DC Cefepime HCl (Maxipime) 2 gm Q12HR IVP Last administered on 11/15/18at 21:35; Start 11/14/18 at 18:27 Azithromycin 250 ml @ 250 mls/hr 1X ONCE IV Last administered on 11/14/18at 22:56; Start 11/14/18 at 18:30; Stop 11/14/18 at 19:29; Status DC Vancomycin HCl (Vanco Per Pharmacy) 1 each PRN DAILY PRN MC SEE COMMENTS Last administered on 11/15/18at 10:17; Start 11/14/18 at 18:30; Stop 11/16/18 at 08:07; Status DC Propofol 50 ml @ 0 mls/hr 1X ONCE IV ; Start 11/14/18 at 18:30; Stop 11/14/18 at 18:31; Status DC Etomidate (Amidate) 20 mg 1X ONCE IV Last administered on 11/14/18at 18:11; Start 11/14/18 at 18:30; Stop 11/14/18 at 18:31; Status DC Rocuronium [place] (Zemuron) 50 mg 1X ONCE IV Last administered on 11/14/18at 18:11; Start 11/14/18 at 18:30; Stop 11/14/18 at 18:31; Status DC Sodium Chloride 1,000 ml @ 1,000 mls/hr 1X ONCE IV Last administered on 11/14/18at 18:11; Start 11/14/18 at 18:30; Stop 11/14/18 at 19:29; Status DC Vancomycin HCl 1.75 gm/Sodium Chloride 500 ml @ 250 mls/hr 1X ONCE IV Last administered on 11/14/18at 21:00; Start 11/14/18 at 19:00; Stop 11/14/18 at 20:59; Status DC Midazolam HCl 100 ml @ 5 mls/hr CONT PRN IV SEE I/O RECORD Last administered on 11/15/18at 06:05; Start 11/14/18 at 20:30 Sodium Chloride 1,000 ml @ 1,000 mls/hr 1X ONCE IV Last administered on 11/14/18at 21:07; Start 11/14/18 at 21:00; Stop 11/14/18 at 21:59; Status DC Methylprednisolone Sodium Succinate (SOLU-Medrol 125MG VIAL) 125 mg Q12HR IV Last administered on 11/15/18at 21:35; Start 11/15/18 at 09:00 Albuterol/ Ipratropium (Duoneb) 3 ml Q4HRS NEB ; Start 11/15/18 at 00:00; Status Cancel Sodium Chloride 1,000 ml @ 75 mls/hr [id number] IV Last administered on 11/16/18at 00:18; Start 11/14/18 at 22:00 Sodium Chloride 1,000 ml @ 999 mls/hr 1X ONCE IV ; Start 11/14/18 at 20:45; Stop 11/14/18 at 21:45; Status UNV Albuterol/ Ipratropium (Duoneb) 3 ml RTQID NEB ; Start 11/15/18 at 08:00; Stop 11/15/18 at 08:00; Status DC Albuterol Sulfate (Ventolin Neb Soln) 2.5 mg PRN Q4HRS PRN NEB SHORTNESS OF BREATH Last administered on 11/15/18at 20:23; Start 11/14/18 at 20:45 Norepinephrine Bitartrate 250 ml @ 1.875 mls/ hr CONT PRN IV SEE I/O RECORD Last administered on 11/15/18at 02:33; Start 11/14/18 at 22:30 Sodium Chloride 1,000 ml @ 999 mls/hr 1X ONCE IV Last administered on 11/14/18at 22:55; Start 11/14/18 at 23:00; Stop 11/15/18 at 00:00; Status DC Albuterol/ Ipratropium (Duoneb) 3 ml Q4HRS NEB Last administered on 11/16/18at 03:55; Start 11/15/18 at 00:00 Vancomycin HCl 1 gm/Sodium Chloride 250 ml @ 250 mls/hr Q12H IV Last administered on 11/15/18at 09:53; Start 11/15/18 at 09:00; Stop 11/15/18 at 12:00; Status DC Vancomycin HCl (Vancomycin Trough Level) 1 each 1X ONCE MC ; Start 11/16/18 at 20:30; Stop 11/16/18 at 20:31; Status Cancel Fentanyl Citrate 30 ml @ 0 mls/hr CONT PRN IV SEE PROTOCOL Last administered on 11/16/18at 04:50; Start 11/15/18 at 07:45 Sodium Chloride 1,000 ml @ 1,000 mls/hr 1X ONCE IV Last administered on 11/15/18at 09:54; Start 11/15/18 at 09:15; Stop 11/15/18 at 10:14; Status DC Famotidine (Pepcid Vial) 20 mg BID IVP Last administered on 11/15/18at 21:35; Start 11/15/18 at 10:00 Enoxaparin Sodium (Lovenox Per Pharmacy Prophylaxis Dosing) 1 each DAILY MC ; Start 11/16/18 at 09:00 Enoxaparin Sodium (Lovenox 40mg Syringe) 40 mg Q24H SQ Last administered on 11/15/18at 09:57; Start 11/15/18 at 10:00 Vancomycin HCl 1 gm/Sodium Chloride 250 ml @ 250 mls/hr Q18H IV Last administered on 11/16/18at 03:01; Start 11/16/18 at 03:00; Stop 11/16/18 at 08:06; Status DC Lorazepam (Ativan Inj) 2 mg PRN Q4HRS PRN IV ANXIETY / AGITATION; Start 11/15/18 at 12:45 Propofol 100 ml @ 0 mls/hr CONT PRN IV SEE PROTOCOL Last administered on 11/16/18at 04:48; Start 11/15/18 at 16:15 Active Scripts Active Guaifenesin Dm Syrup (Guaifenesin/Dextromethorphan) 5 Ml Syrup 10 Ml PO PRN Q6HRS PRN MDD 1 7 Days Reported Incruse Ellipta (Umeclidinium [place]) 62.5 Mcg Blst.w.dev 62.5 Mcg IH DAILY Breo Ellipta 100-25 Mcg Inh (Fluticasone/Vilanterol) 1 Each Aer.pow.ba 1 Puff IH DAILY Tudorza Pressair (Aclidinium [place]) 400 Mcg Aer.pow.ba 400 Mcg IH DAILY Vitals/I & O Vital Sign - Last 24 Hours 11/15/18 11/15/18 11/15/18 11/15/18 08:50 09:00 09:09 10:13 Pulse 85 85 Resp 24 24 24 B/P (MAP) 108/78 (88) 178/91 (120) Pulse Ox 98 100 99 98 O2 Delivery Ventilator Ventilator Ventilator Ventilator 11/15/18 11/15/18 11/15/18 11/15/18 11:00 11:59 12:00 12:00 Temp 98.9 98.9 Pulse 84 79 Resp 18 18 B/P (MAP) 156/76 (102) 147/79 (101) Pulse Ox 100 99 100 O2 Delivery Ventilator Ventilator Mechanical Ventilator Ventilator 11/15/18 11/15/18 11/15/18 11/15/18 13:00 13:15 14:00 15:00 Temp 98.7 98.7 Pulse 80 74 72 Resp 18 18 18 B/P (MAP) 156/73 (100) 140/68 (92) 133/67 (89) Pulse Ox 97 98 99 99 O2 Delivery Ventilator Ventilator Ventilator Ventilator 11/15/18 11/15/18 11/15/18 11/15/18 15:22 16:00 16:00 17:00 Pulse 70 67 Resp 18 18 B/P (MAP) 119/56 (77) 116/61 (79) Pulse Ox 99 97 98 O2 Delivery Ventilator Mechanical Ventilator Ventilator Ventilator 11/15/18 11/15/18 11/15/18 11/15/18 17:39 18:00 18:09 18:39 Pulse 73 Resp 18 18 B/P (MAP) 104/57 (73) Pulse Ox 99 98 98 O2 Delivery Ventilator Ventilator Ventilator Ventilator 11/15/18 11/15/18 11/15/18 11/15/18 19:00 20:00 20:00 20:25 Temp 99.2 99.2 Pulse 66 67 Resp 18 18 B/P (MAP) 117/66 (83) 121/63 (82) Pulse Ox 98 99 98 O2 Delivery Ventilator Ventilator Mechanical Ventilator Ventilator 11/15/18 11/15/18 11/15/18 11/15/18 21:00 22:00 23:00 23:44 Pulse 68 67 64 Resp 18 18 18 B/P (MAP) 144/68 (93) 142/55 (84) 146/70 (95) Pulse Ox 98 96 97 98 O2 Delivery Ventilator Ventilator Ventilator Ventilator 11/15/18 11/16/18 11/16/18 11/16/18 23:59 00:01 01:00 01:58 Temp 98.9 98.9 Pulse 65 62 Resp 18 18 B/P (MAP) 154/74 (100) 126/67 (86) Pulse Ox 97 98 98 O2 Delivery Mechanical Ventilator Ventilator Ventilator Ventilator 11/16/18 11/16/18 11/16/18 11/16/18 02:00 03:00 03:57 04:00 Temp 98.6 98.6 Pulse 65 52 58 Resp 18 18 18 B/P (MAP) 107/50 (69) 113/64 (80) 138/78 (98) Pulse Ox 97 99 98 97 O2 Delivery Ventilator Ventilator Ventilator Ventilator 11/16/18 11/16/18 11/16/18 11/16/18 04:00 04:50 05:00 05:20 Pulse 61 Resp 18 18 18 B/P (MAP) 146/65 (92) Pulse Ox 98 97 96 O2 Delivery Mechanical Ventilator Ventilator Ventilator O2 Flow Rate 15.0 15.0 11/16/18 11/16/18 05:55 06:00 Pulse 59 Resp 18 B/P (MAP) 159/75 (103) Pulse Ox 98 96 O2 Delivery Ventilator Ventilator Intake and Output 11/15/18 11/15/18 11/16/18 14:59 22:59 06:59 Intake Total 250 ml 804 ml 1158.6 ml Output Total 155 ml 280 ml 165 ml Balance 95 ml 524 ml 993.6 ml VON ROGERS MD Nov 16, 2018 08:40
[2018-11-16 09:07] LABS: BASE EXCESS ABG 0 mmol/L (-3-3); HCO3 ABG 24 mmol/L (21-28); PCO2 ABG 36 mmHg (35-46); PO2 ABG 114 mmHg (65-108); SAT O2 ABG 98 % (92-99)
[2018-11-16 09:44] LABS: FIO2 ABG 40
--- NOTE | 2018-11-16 11:20 | PDOC ---
PULMONARY PROGRESS NOTES Subjective intubated, off sedation this am starting to wake up AC mode Vitals Vital Signs Date Time Temp Pulse Resp B/P (MAP) Pulse Ox O2 Delivery O2 Flow Rate FiO2 11/16/18 11:06 96 11/16/18 11:00 80 18 109/57 (74) Ventilator 11/16/18 07:00 98.4 98.4 11/16/18 05:20 15.0 General: Alert, No acute distress Lungs: Clear Cardiovascular: S1, S2 Abdomen: Soft, Non-tender, Other Neuro Exam: Alert Extremities: No Edema Skin: Warm Labs Laboratory Tests Test 11/14/18 16:14 11/14/18 16:15 11/14/18 17:44 11/14/18 21:00 O2 Saturation 97 % (92-99) 94 % (92-99) Arterial Blood pH 7.24 (7.35-7.45) 7.13 (7.35-7.45) Arterial Blood pCO2 at Patient Temp 116 mmHg (35-46) 152 mmHg (35-46) Arterial Blood pO2 at Patient Temp 109 mmHg (65-108) 85 mmHg (65-108) Arterial Blood HCO3 49 mmol/L (21-28) 49 mmol/L (21-28) Arterial Blood Base Excess 16 mmol/L (-3-3) 14 mmol/L (-3-3) FiO2 100 % nrb 50 White Blood Count 9.0 x10^3/uL (4.0-11.0) Red Blood Count 4.23 x10^6/uL (3.50-5.40) Hemoglobin 12.5 g/dL (12.0-15.5) Hematocrit 38.2 % (36.0-47.0) Mean Corpuscular Volume 90 fL (79-100) Mean Corpuscular Hemoglobin 30 pg (25-35) Mean Corpuscular Hemoglobin Concent 33 g/dL (31-37) Red Cell Distribution Width 14.4 % (11.5-14.5) Platelet Count 321 x10^3/uL (140-400) Neutrophils (%) (Auto) 77 % (31-73) Lymphocytes (%) (Auto) 13 % (24-48) Monocytes (%) (Auto) 8 % (0-9) Eosinophils (%) (Auto) 1 % (0-3) Basophils (%) (Auto) 1 % (0-3) Neutrophils # (Auto) 7.0 x10^3uL (1.8-7.7) Lymphocytes # (Auto) 1.2 x10^3/uL (1.0-4.8) Monocytes # (Auto) 0.7 x10^3/uL (0.0-1.1) Eosinophils # (Auto) 0.1 x10^3/uL (0.0-0.7) Basophils # (Auto) 0.1 x10^3/uL (0.0-0.2) Prothrombin Time 11.3 SEC (11.7-14.0) Prothromb Time International Ratio 0.9 (0.8-1.1) Activated Partial Thromboplast Time 25 SEC (24-38) Sodium Level 141 mmol/L (136-145) Potassium Level 4.9 mmol/L (3.5-5.1) Chloride Level 97 mmol/L (98-107) Carbon Dioxide Level 44 mmol/L (21-32) Anion Gap 0 (6-14) Blood Urea Nitrogen 13 mg/dL (7-20) Creatinine 0.6 mg/dL (0.6-1.0) Estimated GFR (Cockcroft-Gault) 100.6 BUN/Creatinine Ratio 22 (6-20) Glucose Level 101 mg/dL (70-99) Lactic Acid Level 0.3 mmol/L (0.4-2.0) Calcium Level 9.0 mg/dL (8.5-10.1) Magnesium Level 2.2 mg/dL (1.8-2.4) Total Bilirubin 0.3 mg/dL (0.2-1.0) Aspartate Amino Transf (AST/SGOT) 15 U/L (15-37) Alanine Aminotransferase (ALT/SGPT) 23 U/L (14-59) Alkaline Phosphatase 43 U/L (46-116) Ammonia 24 mcmol/L (11-34) Troponin I Quantitative 0.020 ng/mL (0.000-0.055) YK-Nfb-G-Type Natriuretic Peptide 300 pg/mL (0-124) Total Protein 6.1 g/dL (6.4-8.2) Albumin 3.4 g/dL (3.4-5.0) Albumin/Globulin Ratio 1.3 (1.0-1.7) Ethyl Alcohol Level < 10 mg/dL (0-10) Nasal Screen MRSA (PCR) Negative (Negative) Test 11/14/18 21:48 11/14/18 23:15 11/15/18 03:20 11/15/18 08:00 O2 Saturation 99 % (92-99) 98 % (92-99) Arterial Blood pH 7.49 (7.35-7.45) 7.51 (7.35-7.45) Arterial Blood pCO2 at Patient Temp 42 mmHg (35-46) 31 mmHg (35-46) Arterial Blood pO2 at Patient Temp 128 mmHg (65-108) 127 mmHg (65-108) Arterial Blood HCO3 31 mmol/L (21-28) 24 mmol/L (21-28) Arterial Blood Base Excess 7 mmol/L (-3-3) 2 mmol/L (-3-3) FiO2 40 40 Urine Collection Type U cath Urine Color Yellow Urine Clarity Turbid Urine pH 7.0 Urine Specific [place] 1.025 Urine Protein 100 mg/dL (NEG-TRACE) Urine Glucose (UA) Negative mg/dL (NEG) Urine Ketones (Stick) 40 mg/dL (NEG) Urine Blood Moderate (NEG) Urine Nitrite Negative (NEG) Urine Bilirubin Negative (NEG) Urine Urobilinogen Dipstick 1.0 mg/dL (0.2 mg/dL) Urine Leukocyte Esterase Negative (NEG) Urine RBC 6-10 /HPF (0-2) Urine WBC 5-10 /HPF (0-4) Urine Squamous Epithelial Cells Occ /LPF Urine Bacteria 0 /HPF (0-FEW) Urine Hyaline Casts Occasional /HPF Urine Mucus Slight /LPF Urine Opiates Screen Neg (NEG) Urine Methadone Screen Neg (NEG) Urine Barbiturates Neg (NEG) Urine Phencyclidine Screen Neg (NEG) Urine Amphetamine/Methamphetamine Neg (NEG) Urine Benzodiazepines Screen Pos (NEG) Urine Cocaine Screen Neg (NEG) Urine Cannabinoids Screen Neg (NEG) Urine Ethyl Alcohol Neg (NEG) White Blood Count 8.1 x10^3/uL (4.0-11.0) Red Blood Count 3.84 x10^6/uL (3.50-5.40) Hemoglobin 11.3 g/dL (12.0-15.5) Hematocrit 34.5 % (36.0-47.0) Mean Corpuscular Volume 90 fL (79-100) Mean Corpuscular Hemoglobin 29 pg (25-35) Mean Corpuscular Hemoglobin Concent 33 g/dL (31-37) Red Cell Distribution Width 14.6 % (11.5-14.5) Platelet Count 330 x10^3/uL (140-400) Neutrophils (%) (Auto) 85 % (31-73) Lymphocytes (%) (Auto) 9 % (24-48) Monocytes (%) (Auto) 6 % (0-9) Eosinophils (%) (Auto) 0 % (0-3) Basophils (%) (Auto) 0 % (0-3) Neutrophils # (Auto) 6.9 x10^3uL (1.8-7.7) Lymphocytes # (Auto) 0.7 x10^3/uL (1.0-4.8) Monocytes # (Auto) 0.5 x10^3/uL (0.0-1.1) Eosinophils # (Auto) 0.0 x10^3/uL (0.0-0.7) Basophils # (Auto) 0.0 x10^3/uL (0.0-0.2) Segmented Neutrophils % 82 % (35-66) Band Neutrophils % 5 % (0-9) Lymphocytes % 7 % (24-48) Monocytes % 6 % (0-10) Platelet Estimate Adequate (ADEQUATE) Sodium Level 140 mmol/L (136-145) Potassium Level 4.2 mmol/L (3.5-5.1) Chloride Level 102 mmol/L (98-107) Carbon Dioxide Level 29 mmol/L (21-32) Anion Gap 9 (6-14) Blood Urea Nitrogen 23 mg/dL (7-20) Creatinine 1.0 mg/dL (0.6-1.0) Estimated GFR (Cockcroft-Gault) 55.8 BUN/Creatinine Ratio 23 (6-20) Glucose Level 118 mg/dL (70-99) Calcium Level 8.5 mg/dL (8.5-10.1) Total Bilirubin 0.6 mg/dL (0.2-1.0) Aspartate Amino Transf (AST/SGOT) 14 U/L (15-37) Alanine Aminotransferase (ALT/SGPT) 19 U/L (14-59) Alkaline Phosphatase 34 U/L (46-116) Total Protein 5.7 g/dL (6.4-8.2) Albumin 2.9 g/dL (3.4-5.0) Albumin/Globulin Ratio 1.0 (1.0-1.7) Triglycerides Level 53 mg/dL (0-150) Cholesterol Level 164 mg/dL (0-200) LDL Cholesterol, Calculated 74 mg/dL (0-100) VLDL Cholesterol, Calculated 11 mg/dL (0-40) Non-HDL Cholesterol Calculated 85 mg/dL (0-129) HDL Cholesterol 79 mg/dL (40-60) Cholesterol/HDL Ratio 2.1 Procalcitonin < 0.10 ng/mL (0.00-0.10) Test 11/16/18 04:05 11/16/18 08:00 White Blood Count 8.6 x10^3/uL (4.0-11.0) Red Blood Count 3.57 x10^6/uL (3.50-5.40) Hemoglobin 10.5 g/dL (12.0-15.5) Hematocrit 31.6 % (36.0-47.0) Mean Corpuscular Volume 89 fL (79-100) Mean Corpuscular Hemoglobin 30 pg (25-35) Mean Corpuscular Hemoglobin Concent 33 g/dL (31-37) Red Cell Distribution Width 14.5 % (11.5-14.5) Platelet Count 261 x10^3/uL (140-400) Neutrophils (%) (Auto) 89 % (31-73) Lymphocytes (%) (Auto) 8 % (24-48) Monocytes (%) (Auto) 3 % (0-9) Eosinophils (%) (Auto) 0 % (0-3) Basophils (%) (Auto) 0 % (0-3) Neutrophils # (Auto) 7.6 x10^3/uL (1.8-7.7) Lymphocytes # (Auto) 0.7 x10^3/uL (1.0-4.8) Monocytes # (Auto) 0.2 x10^3/uL (0.0-1.1) Eosinophils # (Auto) 0.0 x10^3/uL (0.0-0.7) Basophils # (Auto) 0.0 x10^3/uL (0.0-0.2) Sodium Level 143 mmol/L (136-145) Potassium Level 3.9 mmol/L (3.5-5.1) Chloride Level 107 mmol/L (98-107) Carbon Dioxide Level 28 mmol/L (21-32) Anion Gap 8 (6-14) Blood Urea Nitrogen 24 mg/dL (7-20) Creatinine 0.7 mg/dL (0.6-1.0) Estimated GFR (Cockcroft-Gault) 84.2 BUN/Creatinine Ratio 34 (6-20) Glucose Level 132 mg/dL (70-99) Calcium Level 8.7 mg/dL (8.5-10.1) Total Bilirubin 0.3 mg/dL (0.2-1.0) Aspartate Amino Transf (AST/SGOT) 13 U/L (15-37) Alanine Aminotransferase (ALT/SGPT) 17 U/L (14-59) Alkaline Phosphatase 36 U/L (46-116) Total Protein 5.7 g/dL (6.4-8.2) Albumin 2.8 g/dL (3.4-5.0) Albumin/Globulin Ratio 1.0 (1.0-1.7) O2 Saturation 98 % (92-99) Arterial Blood pH 7.44 (7.35-7.45) Arterial Blood pCO2 at Patient Temp 36 mmHg (35-46) Arterial Blood pO2 at Patient Temp 114 mmHg (65-108) Arterial Blood HCO3 24 mmol/L (21-28) Arterial Blood Base Excess 0 mmol/L (-3-3) FiO2 40 Laboratory Tests Test 11/16/18 04:05 11/16/18 08:00 White Blood Count 8.6 x10^3/uL (4.0-11.0) Red Blood Count 3.57 x10^6/uL (3.50-5.40) Hemoglobin 10.5 g/dL (12.0-15.5) Hematocrit 31.6 % (36.0-47.0) Mean Corpuscular Volume 89 fL (79-100) Mean Corpuscular Hemoglobin 30 pg (25-35) Mean Corpuscular Hemoglobin Concent 33 g/dL (31-37) Red Cell Distribution Width 14.5 % (11.5-14.5) Platelet Count 261 x10^3/uL (140-400) Neutrophils (%) (Auto) 89 % (31-73) Lymphocytes (%) (Auto) 8 % (24-48) Monocytes (%) (Auto) 3 % (0-9) Eosinophils (%) (Auto) 0 % (0-3) Basophils (%) (Auto) 0 % (0-3) Neutrophils # (Auto) 7.6 x10^3/uL (1.8-7.7) Lymphocytes # (Auto) 0.7 x10^3/uL (1.0-4.8) Monocytes # (Auto) 0.2 x10^3/uL (0.0-1.1) Eosinophils # (Auto) 0.0 x10^3/uL (0.0-0.7) Basophils # (Auto) 0.0 x10^3/uL (0.0-0.2) Sodium Level 143 mmol/L (136-145) Potassium Level 3.9 mmol/L (3.5-5.1) Chloride Level 107 mmol/L (98-107) Carbon Dioxide Level 28 mmol/L (21-32) Anion Gap 8 (6-14) Blood Urea Nitrogen 24 mg/dL (7-20) Creatinine 0.7 mg/dL (0.6-1.0) Estimated GFR (Cockcroft-Gault) 84.2 BUN/Creatinine Ratio 34 (6-20) Glucose Level 132 mg/dL (70-99) Calcium Level 8.7 mg/dL (8.5-10.1) Total Bilirubin 0.3 mg/dL (0.2-1.0) Aspartate Amino Transf (AST/SGOT) 13 U/L (15-37) Alanine Aminotransferase (ALT/SGPT) 17 U/L (14-59) Alkaline Phosphatase 36 U/L (46-116) Total Protein 5.7 g/dL (6.4-8.2) Albumin 2.8 g/dL (3.4-5.0) Albumin/Globulin Ratio 1.0 (1.0-1.7) O2 Saturation 98 % (92-99) Arterial Blood pH 7.44 (7.35-7.45) Arterial Blood pCO2 at Patient Temp 36 mmHg (35-46) Arterial Blood pO2 at Patient Temp 114 mmHg (65-108) Arterial Blood HCO3 24 mmol/L (21-28) Arterial Blood Base Excess 0 mmol/L (-3-3) FiO2 40 Medications Active Scripts Medications Dose Route/Sig Max Daily Dose Days Date Category Guaifenesin Dm Syrup (Guaifenesin/Dextromethorphan) 5 Ml Syrup 10 Ml PO PRN Q6HRS PRN MDD 1 7 10/03/18 Rx Incruse Ellipta (Umeclidinium Batchelor) 62.5 Mcg Blst.w.dev 62.5 Mcg IH DAILY 07/11/17 Reported Breo Ellipta 100-25 Mcg Inh (Fluticasone/Vilanterol) 1 Each Aer.pow.ba 1 Puff IH DAILY 07/11/17 Reported Tudorza Pressair (Aclidinium Batchelor) 400 Mcg Aer.pow.ba 400 Mcg IH DAILY 07/11/17 Reported Impression . 1. Btqtm-bq-kmpwooe hypercapnic respiratory failure secondary to acute exacerbation of chronic obstructive pulmonary disease and also shock. 2. Shock, likely a combination of hypovolemic and septic shock. off levo 3. Low-grade fever. Source could be in the lungs, although chest x-ray does not show definite consolidation 4. Suspect underlying severe chronic obstructive pulmonary disease with chronic hypercapnia. 5. Mild azotemia. 6. Ygka-ls-qlvolsex protein-calorie malnutrition. Plan . 1. Continue with present assist control mode. off sedation. once awake, CPAP trial 2. Broad-spectrum antibiotics. 3. Follow cultures. 4. Monitor BP closely 5. off Levophed .keep systolic pressure above 100. 6. Continue DuoNeb. 7. Deep venous thrombosis prophylaxis. 8. Stress ulcer prophylaxis. 9. Discussed with RN, discussed with RT. Critical care time 30 minutes. XENA MCGRAW MD Nov 16, 2018 11:20
[2018-11-16 11:48] LABS: BASE EXCESS ABG 0 mmol/L (-3-3); HCO3 ABG 26 mmol/L (21-28); PCO2 ABG 45 mmHg (35-46); PO2 ABG 100 mmHg (65-108); SAT O2 ABG 97 % (92-99)
[2018-11-16] MEDS: FAMOTIDINE 20 MG/2 ML VIAL IVP SCH ×2 (11:48→23:22)
[2018-11-16] MEDS: methylPREDNISolone SOD SUCC PF 125 MG/2 ML VIAL. IV SCH ×2 (11:48→23:21)
[2018-11-16] MEDS: ENOXAPARIN 40 MG/0.4 ML SYRINGE. SQ SCH (11:49)
[2018-11-16] MEDS: CEFEPIME HCL IV Push 2 GM VIAL. IVP SCH ×2 (11:49→23:21)
[2018-11-16] MEDS ORDERED: ROCURONIUM 50 MG/5 ML VIAL. ONE (12:00)
[2018-11-16] MEDS ORDERED: PROPOFOL 10 MG/ML (20ML) VIAL. IV ONE (12:00)
[2018-11-16 13:39] LABS: FIO2 ABG 40
--- NOTE | 2018-11-16 14:36 | NUR ---
SS following up with discharge planning. Pt now on nasal cannula oxygen. PT/OT ordered. SS will await PT/OT evaluations and recommendations and will proceed accordingly with discharge planning.
--- NOTE | 2018-11-16 14:52 | PDOC ---
[employer] 11/16/18 1451: CARDIO Progress Notes Date and Time Date of Service 11/16/2018 Time of Evaluation 1430 Subjective Subjective: No Chest Pain, No Palpitations, Other (hoarse but no pain) Vitals Vitals Vital Signs Date Time Temp Pulse Resp B/P (MAP) Pulse Ox O2 Delivery O2 Flow Rate FiO2 11/16/18 14:00 92 38 125/69 (87) 97 Nasal Cannula 3.0 11/16/18 12:00 98.5 98.5 Weight Weight [ ] Input and Output Intake and Output Intake and Output 11/16/18 07:00 Intake Total 2212.6 ml Output Total 620 ml Balance 1592.6 ml Intake IV Total 2212.6 ml Output Urine Total 620 ml Laboratory Labs Laboratory Tests Test 11/16/18 04:05 11/16/18 08:00 11/16/18 11:40 White Blood Count 8.6 x10^3/uL (4.0-11.0) Red Blood Count 3.57 x10^6/uL (3.50-5.40) Hemoglobin 10.5 g/dL (12.0-15.5) Hematocrit 31.6 % (36.0-47.0) Mean Corpuscular Volume 89 fL (79-100) Mean Corpuscular Hemoglobin 30 pg (25-35) Mean Corpuscular Hemoglobin Concent 33 g/dL (31-37) Red Cell Distribution Width 14.5 % (11.5-14.5) Platelet Count 261 x10^3/uL (140-400) Neutrophils (%) (Auto) 89 % (31-73) Lymphocytes (%) (Auto) 8 % (24-48) Monocytes (%) (Auto) 3 % (0-9) Eosinophils (%) (Auto) 0 % (0-3) Basophils (%) (Auto) 0 % (0-3) Neutrophils # (Auto) 7.6 x10^3/uL (1.8-7.7) Lymphocytes # (Auto) 0.7 x10^3/uL (1.0-4.8) Monocytes # (Auto) 0.2 x10^3/uL (0.0-1.1) Eosinophils # (Auto) 0.0 x10^3/uL (0.0-0.7) Basophils # (Auto) 0.0 x10^3/uL (0.0-0.2) Sodium Level 143 mmol/L (136-145) Potassium Level 3.9 mmol/L (3.5-5.1) Chloride Level 107 mmol/L (98-107) Carbon Dioxide Level 28 mmol/L (21-32) Anion Gap 8 (6-14) Blood Urea Nitrogen 24 mg/dL (7-20) Creatinine 0.7 mg/dL (0.6-1.0) Estimated GFR (Cockcroft-Gault) 84.2 BUN/Creatinine Ratio 34 (6-20) Glucose Level 132 mg/dL (70-99) Calcium Level 8.7 mg/dL (8.5-10.1) Total Bilirubin 0.3 mg/dL (0.2-1.0) Aspartate Amino Transf (AST/SGOT) 13 U/L (15-37) Alanine Aminotransferase (ALT/SGPT) 17 U/L (14-59) Alkaline Phosphatase 36 U/L (46-116) Total Protein 5.7 g/dL (6.4-8.2) Albumin 2.8 g/dL (3.4-5.0) Albumin/Globulin Ratio 1.0 (1.0-1.7) O2 Saturation 98 % (92-99) 97 % (92-99) Arterial Blood pH 7.44 (7.35-7.45) 7.37 (7.35-7.45) Arterial Blood pCO2 at Patient Temp 36 mmHg (35-46) 45 mmHg (35-46) Arterial Blood pO2 at Patient Temp 114 mmHg (65-108) 100 mmHg (65-108) Arterial Blood HCO3 24 mmol/L (21-28) 26 mmol/L (21-28) Arterial Blood Base Excess 0 mmol/L (-3-3) 0 mmol/L (-3-3) FiO2 40 40 Microbiology Micro Microbiology 11/14/18 Blood Culture - Preliminary, Resulted NO GROWTH AFTER 1 DAY Physical Exam HEENT: Neck Supple W Full Motion Chest: Symmetric LUNGS: Other (diminished) Heart: S1S2, RRR (SR no ectopies), other Abdomen: Soft N/T Extremities: No Calf Tenderness Neurology: oriented, follow commands Assessment Assessment 1. Hypotension: due to severe acidemia. resolved 2. Acute on chronic hypercapnic respiratory failure with AECOPD post extubation passed swallow eval 3. Moderate : EF and WM nml. 4. Metabolic encephalopathy: resoled 5. Anxiety: takes xanax at home 6. Prerenal azotemia 7. RACHELLE: noncompliant with CPAP Recommendations 1. Off pressors. no rhythm ectopies. No cardiac intervention warranted at this time 2. Follow pulmonary recommendations 3. Consider for outpt stress test. RAJESH VEGA MD 11/16/18 1620: CARDIO Progress Notes Plan Plan Pt. seen and examined. Agree with above [employer] note. Extubation plans ongoing. Supportive care. Discussed with Dr. Snider. GLENNA WHEELER APRN Nov 16, 2018 14:51 RAJESH VEGA MD Nov 16, 2018 16:20
[2018-11-16] MEDS ORDERED: FLUMAZENIL 0.5 MG/5 ML VIAL. IV ONE ×2 (16:45→17:45)
--- NOTE | 2018-11-16 17:00 | NUR ---
Patient SOA, RR30's-40's, HR 114, SP140. Dr. Snider informed and orders received.
[2018-11-16] MEDS ORDERED: PRED-220 PO (17:19)
[2018-11-16] MEDS ORDERED: FLUO20CA8 PO (17:19)
[2018-11-16 17:33] LABS: BASE EXCESS ABG -3 mmol/L (-3-3); HCO3 ABG 27 mmol/L (21-28); PO2 ABG 89 mmHg (65-108); SAT O2 ABG 95 % (92-99)
[2018-11-16 17:34] LABS: FIO2 ABG 40; PCO2 ABG 75 mmHg (35-46)
[2018-11-16 20:02] LABS: BASE EXCESS ABG -2 mmol/L (-3-3); HCO3 ABG 27 mmol/L (21-28); PO2 ABG 83 mmHg (65-108); SAT O2 ABG 94 % (92-99)
[2018-11-16 20:14] LABS: FIO2 ABG 35; PCO2 ABG 68 mmHg (35-46)
[2018-11-16] MEDS ORDERED: PROPOFOL 100 ML IV ONE (20:46)
--- NOTE | 2018-11-16 21:44 | RAD ---
Abdomen one view. HISTORY: OG placement Single view was taken of the abdomen. There is a gastric tube at the GE junction, the tube should be advanced 6 to 8 cm further into the stomach. There is bowel distention. Lung bases are clear. IMPRESSION: 1. Gastric tube stops at the GE junction. Electronically signed by: Ricco Loyd MD (11/16/2018 9:41 PM) [facility]
--- NOTE | 2018-11-16 21:45 | RAD ---
AP chest. HISTORY: Intubated AP view was taken of the chest. Endotracheal tube is in good position. NG tube stops at the GE junction and should be advanced into the stomach. There are no confluent infiltrates. There is no pleural effusion. IMPRESSION: 1. NG tube stops at the GE junction and should be advanced into the stomach. 2. Endotracheal tube in good position. Electronically signed by: Ricco Loyd MD (11/16/2018 9:42 PM) [facility]
[2018-11-16 22:11] LABS: BASE EXCESS ABG 0 mmol/L (-3-3); HCO3 ABG 25 mmol/L (21-28); PCO2 ABG 42 mmHg (35-46); PO2 ABG 100 mmHg (65-108); SAT O2 ABG 97 % (92-99)
[2018-11-16 22:24] LABS: FIO2 ABG 40
[2018-11-17] VITALS (23 sets, daily range): BP systolic 111–159; BP diastolic 57–76
[2018-11-17] MEDS ORDERED: fentaNYL PF VIAL 100 MCG/2 ML VIAL IV PRN (02:30)
[2018-11-17] MEDS: IV NORMAL SALINE 1000ML BAG 1,000 ML IV SCH ×2 (02:34→15:47)
[2018-11-17] MEDS: PROPOFOL 100 ML IV PRN ×4 (02:40→23:06)
[2018-11-17] MEDS: IPRATRPIUM/ALBUTEROL 0.5/2.5MG 3 ML NEBU. NEB SCH ×6 (04:12→23:19)
[2018-11-17 04:22] LABS: BASO % 0 % (0-3); EOS % 0 % (0-3); HEMATOCRIT 32.5 % (36.0-47.0); HEMOGLOBIN 10.6 g/dL (12.0-15.5); LYMPH # 0.5 x10^3/uL (1.0-4.8); LYMPH % 6 % (24-48); MEAN CORPUSCULAR HEMOGLOBIN 29 pg (25-35); MEAN CORPUSCULAR HGB CONC 32 g/dL (31-37); MEAN CORPUSCULAR VOLUME 90 fL (79-100); MONO # 0.4 x10^3/uL (0.0-1.1); MONO % 4 % (0-9); NEUT # 8.3 x10^3/uL (1.8-7.7); NEUT % 90 % (31-73); PLATELET COUNT 260 x10^3/uL (140-400); RED BLOOD COUNT 3.63 x10^6/uL (3.50-5.40); RED CELL DISTRIBUTION WIDTH 14.9 % (11.5-14.5); WHITE BLOOD COUNT 9.3 x10^3/uL (4.0-11.0)
[2018-11-17 04:38] LABS: ALBUMIN 2.9 g/dL (3.4-5.0); CALCIUM 9.1 mg/dL (8.5-10.1); CREATININE 0.6 mg/dL (0.6-1.0); GFR 100.6; MAGNESIUM 2.2 mg/dL (1.8-2.4); POTASSIUM 3.9 mmol/L (3.5-5.1); TOTAL BILIRUBIN 0.3 mg/dL (0.2-1.0); TOTAL PROTEIN 5.7 g/dL (6.4-8.2)
--- NOTE | 2018-11-17 06:56 | PDOC ---
Infectious Disease Note Subjective: Subjective pt was extubated, was on bipap reintubated last night d/w rn ROS: ROS unable to obtain Vital Signs: Vital Signs Vital Signs Date Time Temp Pulse Resp B/P (MAP) Pulse Ox O2 Delivery O2 Flow Rate FiO2 11/17/18 06:06 60 18 143/71 (95) 100 Ventilator 11/17/18 04:00 98.3 98.3 11/17/18 03:11 3.0 Physical Exam: PHYSICAL EXAM GENERAL: Intubated, arousable female, appears comfortable. HEENT: Normocephalic, atraumatic, anicteric. No thrush. Oral mucosa is moist. ETT is in place. NECK: Supple. LUNGS: Decreased breath sounds at the bases. No wheezing. HEART: S1, S2. Systolic murmur present. ABDOMEN: Soft, nontender, nondistended, no rebound, no guarding. EXTREMITIES: No cyanosis, no clubbing. No edema. DERMATOLOGIC: Warm, dry. No generalized rash. NEUROLOGIC: Intubated, arousable, appears comfortable. Medications: Inpatient Meds: Current Medications Medications (Trade) Dose Ordered Sig/Mane Start Time Stop Time Status Last Admin Dose Admin Albuterol Sulfate (Ventolin Neb Soln) 2.5 mg PRN Q4HRS PRN 11/14/18 20:45 11/15/18 20:23 2.5 MG Albuterol/ Ipratropium (Duoneb) 3 ml Q4HRS 11/15/18 00:00 11/17/18 04:12 3 ML Azithromycin 250 ml @ 250 mls/hr 1X ONCE 11/14/18 18:30 11/14/18 19:29 DC 11/14/18 22:56 250 MLS/HR Cefepime HCl (Maxipime) 2 gm Q12HR 11/14/18 18:27 11/16/18 23:21 2 GM Chlorhexidine Gluconate (Peridex) 15 ml BID 11/14/18 21:00 11/15/18 16:12 DC Enoxaparin Sodium (Lovenox 40mg Syringe) 40 mg Q24H 11/15/18 10:00 11/16/18 11:49 40 MG Enoxaparin Sodium (Lovenox Per Pharmacy Prophylaxis Dosing) 1 each DAILY 11/16/18 09:00 11/16/18 09:00 1 EACH Etomidate (Amidate) 20 mg 1X ONCE 11/14/18 18:30 11/14/18 18:31 DC 11/14/18 18:11 20 MG Famotidine (Pepcid Vial) 20 mg BID 11/15/18 10:00 11/16/18 23:22 20 MG Fentanyl Citrate (Fentanyl 2ml Vial) 50 mcg PRN Q2HR PRN 11/17/18 02:30 11/17/18 02:41 50 MCG Flumazenil (Romazicon) 0.1 mg 1X ONCE 11/16/18 17:45 11/16/18 17:49 DC 11/16/18 17:49 0.1 MG Lorazepam (Ativan Inj) 2 mg PRN Q4HRS PRN 11/15/18 12:45 11/16/18 15:28 2 MG Methylprednisolone Sodium Succinate (SOLU-Medrol 125MG VIAL) 125 mg Q12HR 11/15/18 09:00 11/16/18 23:21 125 MG Midazolam HCl 100 ml @ 5 mls/hr CONT PRN 11/14/18 20:30 11/16/18 12:47 DC 11/15/18 06:05 5 MLS/HR Norepinephrine Bitartrate 250 ml @ 1.875 mls/ hr CONT PRN 11/14/18 22:30 11/16/18 12:47 DC 11/15/18 02:33 1.875 MLS/HR Ondansetron HCl (Zofran) 4 mg 1X ONCE 11/14/18 17:00 11/14/18 17:01 DC 11/14/18 17:13 4 MG Propofol 100 ml @ 1.145 mls/ hr CONT PRN 11/17/18 02:30 11/17/18 02:46 9.158 MLS/HR Rocuronium Caputa (Zemuron) 50 mg 1X ONCE 11/14/18 18:30 11/14/18 18:31 DC 11/14/18 18:11 50 MG Sodium Chloride 1,000 ml @ 1,000 mls/hr 1X ONCE 11/15/18 09:15 11/15/18 10:14 DC 11/15/18 09:54 1,000 MLS/HR Vancomycin HCl (Vanco Per Pharmacy) 1 each PRN DAILY PRN 11/14/18 18:30 11/16/18 08:07 DC 11/15/18 10:17 1 EACH Vancomycin HCl (Vancomycin Trough Level) 1 each 1X ONCE 11/16/18 20:30 11/16/18 20:31 Cancel Vancomycin HCl 1.75 gm/Sodium Chloride 500 ml @ 250 mls/hr 1X ONCE 11/14/18 19:00 11/14/18 20:59 DC 11/14/18 21:00 250 MLS/HR Vancomycin HCl 1 gm/Sodium Chloride 250 ml @ 250 mls/hr Q18H 11/16/18 03:00 11/16/18 08:06 DC 11/16/18 03:01 250 MLS/HR Labs: Lab Laboratory Tests Test 11/16/18 08:00 11/16/18 11:40 11/16/18 17:22 11/16/18 19:50 O2 Saturation 98 % (92-99) 97 % (92-99) 95 % (92-99) 94 % (92-99) Arterial Blood pH 7.44 (7.35-7.45) 7.37 (7.35-7.45) 7.17 (7.35-7.45) 7.21 (7.35-7.45) Arterial Blood pCO2 at Patient Temp 36 mmHg (35-46) 45 mmHg (35-46) 75 mmHg (35-46) 68 mmHg (35-46) Arterial Blood pO2 at Patient Temp 114 mmHg (65-108) 100 mmHg (65-108) 89 mmHg (65-108) 83 mmHg (65-108) Arterial Blood HCO3 24 mmol/L (21-28) 26 mmol/L (21-28) 27 mmol/L (21-28) 27 mmol/L (21-28) Arterial Blood Base Excess 0 mmol/L (-3-3) 0 mmol/L (-3-3) -3 mmol/L (-3-3) -2 mmol/L (-3-3) FiO2 40 40 40 35 Arterial Blood pO2 (Temp corrected) mmHg Test 11/16/18 22:05 11/17/18 04:00 O2 Saturation 97 % (92-99) Arterial Blood pH 7.39 (7.35-7.45) Arterial Blood pCO2 at Patient Temp 42 mmHg (35-46) Arterial Blood pO2 at Patient Temp 100 mmHg (65-108) Arterial Blood HCO3 25 mmol/L (21-28) Arterial Blood Base Excess 0 mmol/L (-3-3) FiO2 40 White Blood Count 9.3 x10^3/uL (4.0-11.0) Red Blood Count 3.63 x10^6/uL (3.50-5.40) Hemoglobin 10.6 g/dL (12.0-15.5) Hematocrit 32.5 % (36.0-47.0) Mean Corpuscular Volume 90 fL (79-100) Mean Corpuscular Hemoglobin 29 pg (25-35) Mean Corpuscular Hemoglobin Concent 32 g/dL (31-37) Red Cell Distribution Width 14.9 % (11.5-14.5) Platelet Count 260 x10^3/uL (140-400) Neutrophils (%) (Auto) 90 % (31-73) Lymphocytes (%) (Auto) 6 % (24-48) Monocytes (%) (Auto) 4 % (0-9) Eosinophils (%) (Auto) 0 % (0-3) Basophils (%) (Auto) 0 % (0-3) Neutrophils # (Auto) 8.3 x10^3/uL (1.8-7.7) Lymphocytes # (Auto) 0.5 x10^3/uL (1.0-4.8) Monocytes # (Auto) 0.4 x10^3/uL (0.0-1.1) Eosinophils # (Auto) 0.0 x10^3/uL (0.0-0.7) Basophils # (Auto) 0.0 x10^3/uL (0.0-0.2) Sodium Level 144 mmol/L (136-145) Potassium Level 3.9 mmol/L (3.5-5.1) Chloride Level 108 mmol/L (98-107) Carbon Dioxide Level 29 mmol/L (21-32) Anion Gap 7 (6-14) Blood Urea Nitrogen 24 mg/dL (7-20) Creatinine 0.6 mg/dL (0.6-1.0) Estimated GFR (Cockcroft-Gault) 100.6 BUN/Creatinine Ratio 40 (6-20) Glucose Level 124 mg/dL (70-99) Calcium Level 9.1 mg/dL (8.5-10.1) Magnesium Level 2.2 mg/dL (1.8-2.4) Total Bilirubin 0.3 mg/dL (0.2-1.0) Aspartate Amino Transf (AST/SGOT) 11 U/L (15-37) Alanine Aminotransferase (ALT/SGPT) 20 U/L (14-59) Alkaline Phosphatase 35 U/L (46-116) Total Protein 5.7 g/dL (6.4-8.2) Albumin 2.9 g/dL (3.4-5.0) Albumin/Globulin Ratio 1.0 (1.0-1.7) Micro bc neg uc neg Objective: Assessment: 1. Hypotension, questionable sepsis. 2. Acute on chronic respiratory failure. 3. Suspected emphysema. 4. Moderate aortic stenosis. 5. Encephalopathy, likely metabolic, improving. 6. Anxiety. 7. Obstructive sleep apnea. 8. Protein-calorie malnutrition. 9. Anemia. Plan: Plan of Care Continue empiric cefepime. Follow up cultures and lab. Continue supportive care. Discussed with RN. VON BAUGH MD Nov 17, 2018 06:56
[2018-11-17 08:13] LABS: BASE EXCESS ABG 3 mmol/L (-3-3); HCO3 ABG 28 mmol/L (21-28); PCO2 ABG 43 mmHg (35-46); PO2 ABG 102 mmHg (65-108); SAT O2 ABG 98 % (92-99)
[2018-11-17 08:17] LABS: FIO2 ABG 40
--- NOTE | 2018-11-17 09:48 | PDOC ---
PROGRESS NOTES Chief Complaint Chief Complaint 63 old female who is an ex-smoker, admitted again for COPD exacerbation, needing intubation History of Present Illness History of Present Illness Assessment/Plan Assessment/Plan acute hypercarbic respiratory failure, critical pH and PCO2 levels metabolic encephalopathy acute hypoxia COPD with acute bronchitis exacerbation of chronic obstructive pulmonary disease shock. likely a combination of hypovolemic and septic shock. RECENT ECHO 09/24 Transmitral Doppler flow pattern is Grade I-abnormal relaxation pattern. Moderate aortic stenosis. Trace mitral regurgitation. Trace tricuspid regurgitation. The PA pressure was estimated at 36 mmHg. Small bilateral lung nodules. follow-up noncontrast chest CT SOON per Fleischner guidelines. MODERATE PROTEIN-CALORIC MALNUTRITION admitted to ICU, pulm consult ID CONSULT CARDIOLOGY CONSULT/// RE SHOCK, AORTIC STENOSIS Deep venous thrombosis prophylaxis. Stress ulcer prophylaxis. d/c vanc Wean Levophed to keep systolic pressure above 100. 11/17 worsening respiratory acidosis, failed BIPAP , Re-intubated, AC mode D/W RN 37 min CC TIME Vitals Vitals Vital Signs Date Time Temp Pulse Resp B/P (MAP) Pulse Ox O2 Delivery O2 Flow Rate FiO2 11/17/18 08:17 18 99 Ventilator 11/17/18 07:00 99.0 54 137/68 (91) 99.0 11/17/18 03:11 3.0 Physical Exam Physical Exam GENERAL: Intubated, female, appears comfortable. HEENT: Normocephalic, atraumatic, anicteric. No thrush. Oral mucosa is moist. ETT is in place. NECK: Supple. LUNGS: Decreased breath sounds at the bases. No wheezing. HEART: S1, S2. Systolic murmur present. ABDOMEN: Soft, nontender, nondistended, no rebound, no guarding. EXTREMITIES: No cyanosis, no clubbing. No edema. DERMATOLOGIC: Warm, dry. No generalized rash. NEUROLOGIC: Intubated, SEDATED, appears comfortable. General: No acute distress, Other (sedated on vent) Heart: Regular rate (SR no ectopies), Other (3/6 systolic murmur to AKIN border) Lungs: Clear Abdomen: Soft, No tenderness Extremities: No cyanosis Skin: No breakdown, No significant lesion Labs LABS STATUS: ADM IN ORD. PHYSICIAN: XENA MCGRAW MD REASON: on vent PROCEDURE: PORTABLE CHEST 1V Chest radiograph 11/17/2018 9:00 AM INDICATION: On ventilator COMPARISON: November 16, 2018 TECHNIQUE: Supine frontal view of the chest is provided. FINDINGS: The cardiomediastinal silhouette is within normal limits. Endotracheal tube and nasogastric tube are in similar position. There are no pleural effusions. There is no pulmonary vascular congestion. There is no pneumothorax. Patchy interstitial changes at the right lung base may represent subsegmental atelectasis. Pulmonary emphysematous changes are noted. No significant osseous abnormality is identified. IMPRESSION: Stable support lines and tubes. Aeration of the lungs appears similar to the prior examination. Electronically signed by: Inessa Stokes MD (11/17/2018 10:36 AM) [id number] Laboratory Tests Test 11/16/18 11:40 11/16/18 17:22 11/16/18 19:50 11/16/18 22:05 O2 Saturation 97 % (92-99) 95 % (92-99) 94 % (92-99) 97 % (92-99) Arterial Blood pH 7.37 (7.35-7.45) 7.17 (7.35-7.45) 7.21 (7.35-7.45) 7.39 (7.35-7.45) Arterial Blood pCO2 at Patient Temp 45 mmHg (35-46) 75 mmHg (35-46) 68 mmHg (35-46) 42 mmHg (35-46) Arterial Blood pO2 at Patient Temp 100 mmHg (65-108) 89 mmHg (65-108) 83 mmHg (65-108) 100 mmHg (65-108) Arterial Blood HCO3 26 mmol/L (21-28) 27 mmol/L (21-28) 27 mmol/L (21-28) 25 mmol/L (21-28) Arterial Blood Base Excess 0 mmol/L (-3-3) -3 mmol/L (-3-3) -2 mmol/L (-3-3) 0 mmol/L (-3-3) FiO2 40 40 35 40 Arterial Blood pO2 (Temp corrected) mmHg Test 11/17/18 04:00 11/17/18 08:00 White Blood Count 9.3 x10^3/uL (4.0-11.0) Red Blood Count 3.63 x10^6/uL (3.50-5.40) Hemoglobin 10.6 g/dL (12.0-15.5) Hematocrit 32.5 % (36.0-47.0) Mean Corpuscular Volume 90 fL (79-100) Mean Corpuscular Hemoglobin 29 pg (25-35) Mean Corpuscular Hemoglobin Concent 32 g/dL (31-37) Red Cell Distribution Width 14.9 % (11.5-14.5) Platelet Count 260 x10^3/uL (140-400) Neutrophils (%) (Auto) 90 % (31-73) Lymphocytes (%) (Auto) 6 % (24-48) Monocytes (%) (Auto) 4 % (0-9) Eosinophils (%) (Auto) 0 % (0-3) Basophils (%) (Auto) 0 % (0-3) Neutrophils # (Auto) 8.3 x10^3/uL (1.8-7.7) Lymphocytes # (Auto) 0.5 x10^3/uL (1.0-4.8) Monocytes # (Auto) 0.4 x10^3/uL (0.0-1.1) Eosinophils # (Auto) 0.0 x10^3/uL (0.0-0.7) Basophils # (Auto) 0.0 x10^3/uL (0.0-0.2) Sodium Level 144 mmol/L (136-145) Potassium Level 3.9 mmol/L (3.5-5.1) Chloride Level 108 mmol/L (98-107) Carbon Dioxide Level 29 mmol/L (21-32) Anion Gap 7 (6-14) Blood Urea Nitrogen 24 mg/dL (7-20) Creatinine 0.6 mg/dL (0.6-1.0) Estimated GFR (Cockcroft-Gault) 100.6 BUN/Creatinine Ratio 40 (6-20) Glucose Level 124 mg/dL (70-99) Calcium Level 9.1 mg/dL (8.5-10.1) Magnesium Level 2.2 mg/dL (1.8-2.4) Total Bilirubin 0.3 mg/dL (0.2-1.0) Aspartate Amino Transf (AST/SGOT) 11 U/L (15-37) Alanine Aminotransferase (ALT/SGPT) 20 U/L (14-59) Alkaline Phosphatase 35 U/L (46-116) Total Protein 5.7 g/dL (6.4-8.2) Albumin 2.9 g/dL (3.4-5.0) Albumin/Globulin Ratio 1.0 (1.0-1.7) O2 Saturation 98 % (92-99) Arterial Blood pH 7.43 (7.35-7.45) Arterial Blood pCO2 at Patient Temp 43 mmHg (35-46) Arterial Blood pO2 at Patient Temp 102 mmHg (65-108) Arterial Blood HCO3 28 mmol/L (21-28) Arterial Blood Base Excess 3 mmol/L (-3-3) FiO2 40 Assessment and Plan Assessmemt and Plan Problems Medical Problems: (1) Acute hypercapnic respiratory failure Status: Acute Comment Review of Relevant I have reviewed the following items heaven (where applicable) has been applied. Labs Laboratory Tests Test 11/16/18 04:05 11/16/18 08:00 11/16/18 11:40 11/16/18 17:22 White Blood Count 8.6 x10^3/uL (4.0-11.0) Red Blood Count 3.57 x10^6/uL (3.50-5.40) Hemoglobin 10.5 g/dL (12.0-15.5) Hematocrit 31.6 % (36.0-47.0) Mean Corpuscular Volume 89 fL (79-100) Mean Corpuscular Hemoglobin 30 pg (25-35) Mean Corpuscular Hemoglobin Concent 33 g/dL (31-37) Red Cell Distribution Width 14.5 % (11.5-14.5) Platelet Count 261 x10^3/uL (140-400) Neutrophils (%) (Auto) 89 % (31-73) Lymphocytes (%) (Auto) 8 % (24-48) Monocytes (%) (Auto) 3 % (0-9) Eosinophils (%) (Auto) 0 % (0-3) Basophils (%) (Auto) 0 % (0-3) Neutrophils # (Auto) 7.6 x10^3/uL (1.8-7.7) Lymphocytes # (Auto) 0.7 x10^3/uL (1.0-4.8) Monocytes # (Auto) 0.2 x10^3/uL (0.0-1.1) Eosinophils # (Auto) 0.0 x10^3/uL (0.0-0.7) Basophils # (Auto) 0.0 x10^3/uL (0.0-0.2) Sodium Level 143 mmol/L (136-145) Potassium Level 3.9 mmol/L (3.5-5.1) Chloride Level 107 mmol/L (98-107) Carbon Dioxide Level 28 mmol/L (21-32) Anion Gap 8 (6-14) Blood Urea Nitrogen 24 mg/dL (7-20) Creatinine 0.7 mg/dL (0.6-1.0) Estimated GFR (Cockcroft-Gault) 84.2 BUN/Creatinine Ratio 34 (6-20) Glucose Level 132 mg/dL (70-99) Calcium Level 8.7 mg/dL (8.5-10.1) Total Bilirubin 0.3 mg/dL (0.2-1.0) Aspartate Amino Transf (AST/SGOT) 13 U/L (15-37) Alanine Aminotransferase (ALT/SGPT) 17 U/L (14-59) Alkaline Phosphatase 36 U/L (46-116) Total Protein 5.7 g/dL (6.4-8.2) Albumin 2.8 g/dL (3.4-5.0) Albumin/Globulin Ratio 1.0 (1.0-1.7) O2 Saturation 98 % (92-99) 97 % (92-99) 95 % (92-99) Arterial Blood pH 7.44 (7.35-7.45) 7.37 (7.35-7.45) 7.17 (7.35-7.45) Arterial Blood pCO2 at Patient Temp 36 mmHg (35-46) 45 mmHg (35-46) 75 mmHg (35-46) Arterial Blood pO2 at Patient Temp 114 mmHg (65-108) 100 mmHg (65-108) 89 mmHg (65-108) Arterial Blood HCO3 24 mmol/L (21-28) 26 mmol/L (21-28) 27 mmol/L (21-28) Arterial Blood Base Excess 0 mmol/L (-3-3) 0 mmol/L (-3-3) -3 mmol/L (-3-3) FiO2 40 40 40 Test 11/16/18 19:50 11/16/18 22:05 11/17/18 04:00 11/17/18 08:00 O2 Saturation 94 % (92-99) 97 % (92-99) 98 % (92-99) Arterial Blood pH 7.21 (7.35-7.45) 7.39 (7.35-7.45) 7.43 (7.35-7.45) Arterial Blood pCO2 at Patient Temp 68 mmHg (35-46) 42 mmHg (35-46) 43 mmHg (35-46) Arterial Blood pO2 at Patient Temp 83 mmHg (65-108) 100 mmHg (65-108) 102 mmHg (65-108) Arterial Blood pO2 (Temp corrected) mmHg Arterial Blood HCO3 27 mmol/L (21-28) 25 mmol/L (21-28) 28 mmol/L (21-28) Arterial Blood Base Excess -2 mmol/L (-3-3) 0 mmol/L (-3-3) 3 mmol/L (-3-3) FiO2 35 40 40 White Blood Count 9.3 x10^3/uL (4.0-11.0) Red Blood Count 3.63 x10^6/uL (3.50-5.40) Hemoglobin 10.6 g/dL (12.0-15.5) Hematocrit 32.5 % (36.0-47.0) Mean Corpuscular Volume 90 fL (79-100) Mean Corpuscular Hemoglobin 29 pg (25-35) Mean Corpuscular Hemoglobin Concent 32 g/dL (31-37) Red Cell Distribution Width 14.9 % (11.5-14.5) Platelet Count 260 x10^3/uL (140-400) Neutrophils (%) (Auto) 90 % (31-73) Lymphocytes (%) (Auto) 6 % (24-48) Monocytes (%) (Auto) 4 % (0-9) Eosinophils (%) (Auto) 0 % (0-3) Basophils (%) (Auto) 0 % (0-3) Neutrophils # (Auto) 8.3 x10^3/uL (1.8-7.7) Lymphocytes # (Auto) 0.5 x10^3/uL (1.0-4.8) Monocytes # (Auto) 0.4 x10^3/uL (0.0-1.1) Eosinophils # (Auto) 0.0 x10^3/uL (0.0-0.7) Basophils # (Auto) 0.0 x10^3/uL (0.0-0.2) Sodium Level 144 mmol/L (136-145) Potassium Level 3.9 mmol/L (3.5-5.1) Chloride Level 108 mmol/L (98-107) Carbon Dioxide Level 29 mmol/L (21-32) Anion Gap 7 (6-14) Blood Urea Nitrogen 24 mg/dL (7-20) Creatinine 0.6 mg/dL (0.6-1.0) Estimated GFR (Cockcroft-Gault) 100.6 BUN/Creatinine Ratio 40 (6-20) Glucose Level 124 mg/dL (70-99) Calcium Level 9.1 mg/dL (8.5-10.1) Magnesium Level 2.2 mg/dL (1.8-2.4) Total Bilirubin 0.3 mg/dL (0.2-1.0) Aspartate Amino Transf (AST/SGOT) 11 U/L (15-37) Alanine Aminotransferase (ALT/SGPT) 20 U/L (14-59) Alkaline Phosphatase 35 U/L (46-116) Total Protein 5.7 g/dL (6.4-8.2) Albumin 2.9 g/dL (3.4-5.0) Albumin/Globulin Ratio 1.0 (1.0-1.7) Laboratory Tests Test 11/16/18 11:40 11/16/18 17:22 11/16/18 19:50 11/16/18 22:05 O2 Saturation 97 % (92-99) 95 % (92-99) 94 % (92-99) 97 % (92-99) Arterial Blood pH 7.37 (7.35-7.45) 7.17 (7.35-7.45) 7.21 (7.35-7.45) 7.39 (7.35-7.45) Arterial Blood pCO2 at Patient Temp 45 mmHg (35-46) 75 mmHg (35-46) 68 mmHg (35-46) 42 mmHg (35-46) Arterial Blood pO2 at Patient Temp 100 mmHg (65-108) 89 mmHg (65-108) 83 mmHg (65-108) 100 mmHg (65-108) Arterial Blood HCO3 26 mmol/L (21-28) 27 mmol/L (21-28) 27 mmol/L (21-28) 25 mmol/L (21-28) Arterial Blood Base Excess 0 mmol/L (-3-3) -3 mmol/L (-3-3) -2 mmol/L (-3-3) 0 mmol/L (-3-3) FiO2 40 40 35 40 Arterial Blood pO2 (Temp corrected) mmHg Test 11/17/18 04:00 11/17/18 08:00 White Blood Count 9.3 x10^3/uL (4.0-11.0) Red Blood Count 3.63 x10^6/uL (3.50-5.40) Hemoglobin 10.6 g/dL (12.0-15.5) Hematocrit 32.5 % (36.0-47.0) Mean Corpuscular Volume 90 fL (79-100) Mean Corpuscular Hemoglobin 29 pg (25-35) Mean Corpuscular Hemoglobin Concent 32 g/dL (31-37) Red Cell Distribution Width 14.9 % (11.5-14.5) Platelet Count 260 x10^3/uL (140-400) Neutrophils (%) (Auto) 90 % (31-73) Lymphocytes (%) (Auto) 6 % (24-48) Monocytes (%) (Auto) 4 % (0-9) Eosinophils (%) (Auto) 0 % (0-3) Basophils (%) (Auto) 0 % (0-3) Neutrophils # (Auto) 8.3 x10^3/uL (1.8-7.7) Lymphocytes # (Auto) 0.5 x10^3/uL (1.0-4.8) Monocytes # (Auto) 0.4 x10^3/uL (0.0-1.1) Eosinophils # (Auto) 0.0 x10^3/uL (0.0-0.7) Basophils # (Auto) 0.0 x10^3/uL (0.0-0.2) Sodium Level 144 mmol/L (136-145) Potassium Level 3.9 mmol/L (3.5-5.1) Chloride Level 108 mmol/L (98-107) Carbon Dioxide Level 29 mmol/L (21-32) Anion Gap 7 (6-14) Blood Urea Nitrogen 24 mg/dL (7-20) Creatinine 0.6 mg/dL (0.6-1.0) Estimated GFR (Cockcroft-Gault) 100.6 BUN/Creatinine Ratio 40 (6-20) Glucose Level 124 mg/dL (70-99) Calcium Level 9.1 mg/dL (8.5-10.1) Magnesium Level 2.2 mg/dL (1.8-2.4) Total Bilirubin 0.3 mg/dL (0.2-1.0) Aspartate Amino Transf (AST/SGOT) 11 U/L (15-37) Alanine Aminotransferase (ALT/SGPT) 20 U/L (14-59) Alkaline Phosphatase 35 U/L (46-116) Total Protein 5.7 g/dL (6.4-8.2) Albumin 2.9 g/dL (3.4-5.0) Albumin/Globulin Ratio 1.0 (1.0-1.7) O2 Saturation 98 % (92-99) Arterial Blood pH 7.43 (7.35-7.45) Arterial Blood pCO2 at Patient Temp 43 mmHg (35-46) Arterial Blood pO2 at Patient Temp 102 mmHg (65-108) Arterial Blood HCO3 28 mmol/L (21-28) Arterial Blood Base Excess 3 mmol/L (-3-3) FiO2 40 Microbiology 11/14/18 Blood Culture - Preliminary, Resulted NO GROWTH AFTER 2 DAYS 11/14/18 Urine Culture - Final, Complete 11/14/18 Urine Culture Result 1 (KRISTA) - Final, Complete Medications Current Medications Methylprednisolone Sodium Succinate (SOLU-Medrol 125MG VIAL) 125 mg 1X ONCE IV Last administered on 11/14/18at 17:14; Start 11/14/18 at 16:45; Stop 11/14/18 at 16:46; Status DC Albuterol/ Ipratropium (Duoneb) 3 ml 1X ONCE NEB Last administered on 11/14/18at 17:04; Start 11/14/18 at 16:45; Stop 11/14/18 at 16:46; Status DC Ondansetron HCl (Zofran) 4 mg 1X ONCE IV Last administered on 11/14/18at 17:13; Start 11/14/18 at 17:00; Stop 11/14/18 at 17:01; Status DC Propofol 0 ml @ As Directed STK-MED ONCE IV ; Start 11/14/18 at 18:09; Stop 11/14/18 at 18:10; Status DC Etomidate (Amidate) 20 mg STK-MED ONCE IV ; Start 11/14/18 at 18:17; Stop 11/14/18 at 18:18; Status DC Rocuronium [place] (Zemuron) 50 mg STK-MED ONCE .ROUTE ; Start 11/14/18 at 18:17; Stop 11/14/18 at 18:18; Status DC Propofol 100 ml @ 0 mls/hr CONT PRN IV SEE PROTOCOL Last administered on 11/14/18at 18:00; Start 11/14/18 at 18:30; Stop 11/15/18 at 07:38; Status DC Chlorhexidine Gluconate (Peridex) 15 ml BID MM ; Start 11/14/18 at 21:00; Stop 11/15/18 at 16:12; Status DC Midazolam HCl 100 ml @ 0 mls/hr CONT PRN IV SEE PROTOCOL; Start 11/14/18 at 18:30; Stop 11/14/18 at 20:14; Status DC Cefepime HCl (Maxipime) 2 gm Q12HR IVP Last administered on 11/16/18at 23:21; Start 11/14/18 at 18:27 Azithromycin 250 ml @ 250 mls/hr 1X ONCE IV Last administered on 11/14/18at 22:56; Start 11/14/18 at 18:30; Stop 11/14/18 at 19:29; Status DC Vancomycin HCl (Vanco Per Pharmacy) 1 each PRN DAILY PRN MC SEE COMMENTS Last administered on 11/15/18at 10:17; Start 11/14/18 at 18:30; Stop 11/16/18 at 08:07; Status DC Propofol 50 ml @ 0 mls/hr 1X ONCE IV ; Start 11/14/18 at 18:30; Stop 11/14/18 at 18:31; Status DC Etomidate (Amidate) 20 mg 1X ONCE IV Last administered on 11/14/18at 18:11; Start 11/14/18 at 18:30; Stop 11/14/18 at 18:31; Status DC Rocuronium [place] (Zemuron) 50 mg 1X ONCE IV Last administered on 11/14/18at 18:11; Start 11/14/18 at 18:30; Stop 11/14/18 at 18:31; Status DC Sodium Chloride 1,000 ml @ 1,000 mls/hr 1X ONCE IV Last administered on 11/14/18at 18:11; Start 11/14/18 at 18:30; Stop 11/14/18 at 19:29; Status DC Vancomycin HCl 1.75 gm/Sodium Chloride 500 ml @ 250 mls/hr 1X ONCE IV Last administered on 11/14/18at 21:00; Start 11/14/18 at 19:00; Stop 11/14/18 at 20:59; Status DC Midazolam HCl 100 ml @ 5 mls/hr CONT PRN IV SEE I/O RECORD Last administered on 11/15/18at 06:05; Start 11/14/18 at 20:30; Stop 11/16/18 at 12:47; Status DC Sodium Chloride 1,000 ml @ 1,000 mls/hr 1X ONCE IV Last administered on 11/14/18at 21:07; Start 11/14/18 at 21:00; Stop 11/14/18 at 21:59; Status DC Methylprednisolone Sodium Succinate (SOLU-Medrol 125MG VIAL) 125 mg Q12HR IV Last administered on 11/16/18at 23:21; Start 11/15/18 at 09:00 Albuterol/ Ipratropium (Duoneb) 3 ml Q4HRS NEB ; Start 11/15/18 at 00:00; Status Cancel Sodium Chloride 1,000 ml @ 75 mls/hr [id number] IV Last administered on 11/17/18at 02:34; Start 11/14/18 at 22:00 Sodium Chloride 1,000 ml @ 999 mls/hr 1X ONCE IV ; Start 11/14/18 at 20:45; Stop 11/14/18 at 21:45; Status UNV Albuterol/ Ipratropium (Duoneb) 3 ml RTQID NEB ; Start 11/15/18 at 08:00; Stop 11/15/18 at 08:00; Status DC Albuterol Sulfate (Ventolin Neb Soln) 2.5 mg PRN Q4HRS PRN NEB SHORTNESS OF LOU ATH Last administered on 11/15/18at 20:23; Start 11/14/18 at 20:45 Norepinephrine Bitartrate 250 ml @ 1.875 mls/ hr CONT PRN IV SEE I/O RECORD Last administered on 11/15/18at 02:33; Start 11/14/18 at 22:30; Stop 11/16/18 at 12:47; Status DC Sodium Chloride 1,000 ml @ 999 mls/hr 1X ONCE IV Last administered on 11/14/18at 22:55; Start 11/14/18 at 23:00; Stop 11/15/18 at 00:00; Status DC Albuterol/ Ipratropium (Duoneb) 3 ml Q4HRS NEB Last administered on 11/17/18at 07:39; Start 11/15/18 at 00:00 Vancomycin HCl 1 gm/Sodium Chloride 250 ml @ 250 mls/hr Q12H IV Last administered on 11/15/18at 09:53; Start 11/15/18 at 09:00; Stop 11/15/18 at 12:00; Status DC Vancomycin HCl (Vancomycin Trough Level) 1 each 1X ONCE MC ; Start 11/16/18 at 20:30; Stop 11/16/18 at 20:31; Status Cancel Fentanyl Citrate 30 ml @ 0 mls/hr CONT PRN IV SEE PROTOCOL Last administered on 11/16/18at 04:50; Start 11/15/18 at 07:45; Stop 11/16/18 at 12:47; Status DC Sodium Chloride 1,000 ml @ 1,000 mls/hr 1X ONCE IV Last administered on 11/06 at 09:54; Start 11/15/18 at 09:15; Stop 11/15/18 at 10:14; Status DC Famotidine (Pepcid Vial) 20 mg BID IVP Last administered on 11/16/18at 23:22; Start 11/15/18 at 10:00 Enoxaparin Sodium (Lovenox Per Pharmacy Prophylaxis Dosing) 1 each DAILY MC Las t administered on 11/16/18at 09:00; Start 11/16/18 at 09:00 Enoxaparin Sodium (Lovenox 40mg Syringe) 40 mg Q24H SQ Last administered on 11/16/18at 11:49; Start 11/15/18 at 10:00 Vancomycin HCl 1 gm/Sodium Chloride 250 ml @ 250 mls/hr Q18H IV Last administ ered on 11/16/18at 03:01; Start 11/16/18 at 03:00; Stop 11/16/18 at 08:06; Status DC Lorazepam (Ativan Inj) 2 mg PRN Q4HRS PRN IV ANXIETY / AGITATION Last administered on 11/16/18at 15:28; Start 11/15/18 at 12:45 Propofol 100 ml @ 0 mls/hr CONT PRN IV SEE PROTOCOL Last administered on 11/16/18at 04:48; Start 11/15/18 at 16:15; Stop 11/16/18 at 12:47; Status DC Flumazenil (Romazicon) 0.1 mg 1X ONCE IV Last administered on 11/16/18at 16:46; Start 11/16/18 at 16:45; Stop 11/16/18 at 16:46; Status DC Flumazenil (Romazicon) 0.1 mg 1X ONCE IV Last administered on 11/16/18at 17:49; Start 11/16/18 at 17:45; Stop 11/16/18 at 17:49; Status DC Propofol 100 ml @ As Directed STK-MED ONCE IV ; Start 11/16/18 at 20:46; Stop 11/16/18 at 20:47; Status DC Propofol 100 ml @ 1.145 mls/ hr CONT PRN IV SEE I/O RECORD Last administered on 11/17/18at 02:46; Start 11/17/18 at 02:30 Fentanyl Citrate (Fentanyl 2ml Vial) 50 mcg PRN Q2HR PRN IV PAIN Last administered on 11/17/18at 02:41; Start 11/17/18 at 02:30 Fentanyl Citrate 30 ml @ 0 mls/hr CONT PRN IV SEE PROTOCOL Last administered on 11/17/18at 08:17; Start 11/17/18 at 07:15 Active Scripts Active Guaifenesin Dm Syrup (Guaifenesin/Dextromethorphan) 5 Ml Syrup 10 Ml PO PRN Q6HRS PRN MDD 1 7 Days Reported Prednisone (Prednisone) 10 Mg Tablet 10 Mg PO DAILY Fluoxetine Hcl 20 Mg Capsule 20 Mg PO DAILY Incruse Ellipta (Umeclidinium [place]) 62.5 Mcg Blst.w.dev 62.5 Mcg IH DAILY Breo Ellipta 100-25 Mcg Inh (Fluticasone/Vilanterol) 1 Each Aer.pow.ba 1 Puff IH DAILY Tudorza Pressair (Aclidinium [place]) 400 Mcg Aer.pow.ba 400 Mcg IH DAILY Vitals/I & O Vital Sign - Last 24 Hours 11/16/18 11/16/18 11/16/18 11/16/18 10:00 10:30 11:00 11:06 Pulse 88 80 Resp 18 18 B/P (MAP) 102/63 (76) 109/57 (74) Pulse Ox 96 96 96 96 O2 Delivery Ventilator Ventilator Ventilator 11/16/18 11/16/18 11/16/18 11/16/18 12:00 12:00 13:00 14:00 Temp 98.5 98.5 Pulse 95 94 92 Resp 18 33 38 B/P (MAP) 104/55 (71) 112/66 (81) 125/69 (87) Pulse Ox 95 93 97 O2 Delivery Ventilator Nasal Cannula Nasal Cannula Nasal Cannula O2 Flow Rate 3.0 3.0 3.0 3.0 11/16/18 11/16/18 11/16/18 11/16/18 15:00 16:00 16:00 16:42 Temp 97.6 97.6 Pulse 110 114 Resp 38 38 B/P (MAP) 124/68 (86) 137/70 (92) Pulse Ox 96 95 94 O2 Delivery Nasal Cannula Nasal Cannula Nasal Cannula BiPAP/CPAP O2 Flow Rate 3.0 3.0 3.0 11/16/18 11/16/18 11/16/18 11/16/18 17:00 17:48 18:00 19:00 Pulse 102 91 88 Resp 40 32 24 B/P (MAP) 123/72 (89) 114/67 (83) 104/70 (81) Pulse Ox 95 92 92 O2 Delivery BiPAP/CPAP BiPAP/CPAP BiPAP/CPAP BiPAP/CPAP 11/16/18 11/16/18 11/16/18 11/16/18 20:00 20:00 20:29 21:00 Temp 98.7 98.7 Pulse 103 74 Resp 34 18 B/P (MAP) 122/67 (85) 151/73 (99) Pulse Ox 94 94 94 O2 Delivery Bi-pap BiPAP/CPAP BiPAP/CPAP BiPAP/CPAP 11/16/18 11/16/18 11/16/18 11/16/18 21:05 22:00 23:00 23:22 Pulse 67 65 Resp 18 18 B/P (MAP) 135/77 (96) 128/69 (88) Pulse Ox 99 94 98 99 O2 Delivery Ventilator Ventilator Ventilator Ventilator 11/17/18 11/17/18 11/17/18 11/17/18 00:01 00:01 01:00 01:36 Temp 99.6 99.6 Pulse 64 53 Resp 18 18 B/P (MAP) 114/67 (83) 147/71 (96) Pulse Ox 99 98 99 O2 Delivery Ventilator Mechanical Ventilator Ventilator Ventilator 11/17/18 11/17/18 11/17/18 11/17/18 02:00 02:41 03:00 03:11 Pulse 65 54 Resp 18 18 18 B/P (MAP) 139/69 (92) 137/69 (91) Pulse Ox 98 99 98 99 O2 Delivery Ventilator Ventilator Ventilator Ventilator O2 Flow Rate 3.0 3.0 11/17/18 11/17/18 11/17/18 11/17/18 03:40 04:00 04:00 05:00 Temp 98.3 98.3 Pulse 51 62 Resp 18 18 B/P (MAP) 137/76 (96) 142/71 (94) Pulse Ox 99 99 98 O2 Delivery Ventilator Ventilator Mechanical Ventilator Ventilator 11/17/18 11/17/18 11/17/18 11/17/18 05:26 06:06 07:00 07:30 Temp 99.0 99.0 Pulse 60 54 Resp 18 18 B/P (MAP) 143/71 (95) 137/68 (91) Pulse Ox 99 100 98 99 O2 Delivery Ventilator Ventilator Ventilator Ventilator 11/17/18 11/17/18 08:00 08:17 Resp 18 Pulse Ox 99 O2 Delivery Mechanical Ventilator Ventilator Intake and Output 11/16/18 11/16/18 11/17/18 15:00 23:00 07:00 Intake Total 1883 ml Output Total 690 ml 285 ml 240 ml Balance -690 ml -285 ml 1643 ml VON ROGERS MD Nov 17, 2018 09:48
--- NOTE | 2018-11-17 09:54 | PDOC ---
PULMONARY PROGRESS NOTES Subjective extubated yesterday am, did well till last night . developed worsening respiratory acidosis, failed BIPAP , Re-intubated, AC mode Vitals Vital Signs Date Time Temp Pulse Resp B/P (MAP) Pulse Ox O2 Delivery O2 Flow Rate FiO2 11/17/18 08:17 18 99 Ventilator 11/17/18 07:00 99.0 54 137/68 (91) 99.0 11/17/18 03:11 3.0 Lungs: Clear Cardiovascular: S1, S2 Abdomen: Soft, Non-tender, Other Neuro Exam: Alert Extremities: No Edema Skin: Warm Labs Laboratory Tests Test 11/16/18 04:05 11/16/18 08:00 11/16/18 11:40 11/16/18 17:22 White Blood Count 8.6 x10^3/uL (4.0-11.0) Red Blood Count 3.57 x10^6/uL (3.50-5.40) Hemoglobin 10.5 g/dL (12.0-15.5) Hematocrit 31.6 % (36.0-47.0) Mean Corpuscular Volume 89 fL (79-100) Mean Corpuscular Hemoglobin 30 pg (25-35) Mean Corpuscular Hemoglobin Concent 33 g/dL (31-37) Red Cell Distribution Width 14.5 % (11.5-14.5) Platelet Count 261 x10^3/uL (140-400) Neutrophils (%) (Auto) 89 % (31-73) Lymphocytes (%) (Auto) 8 % (24-48) Monocytes (%) (Auto) 3 % (0-9) Eosinophils (%) (Auto) 0 % (0-3) Basophils (%) (Auto) 0 % (0-3) Neutrophils # (Auto) 7.6 x10^3/uL (1.8-7.7) Lymphocytes # (Auto) 0.7 x10^3/uL (1.0-4.8) Monocytes # (Auto) 0.2 x10^3/uL (0.0-1.1) Eosinophils # (Auto) 0.0 x10^3/uL (0.0-0.7) Basophils # (Auto) 0.0 x10^3/uL (0.0-0.2) Sodium Level 143 mmol/L (136-145) Potassium Level 3.9 mmol/L (3.5-5.1) Chloride Level 107 mmol/L (98-107) Carbon Dioxide Level 28 mmol/L (21-32) Anion Gap 8 (6-14) Blood Urea Nitrogen 24 mg/dL (7-20) Creatinine 0.7 mg/dL (0.6-1.0) Estimated GFR (Cockcroft-Gault) 84.2 BUN/Creatinine Ratio 34 (6-20) Glucose Level 132 mg/dL (70-99) Calcium Level 8.7 mg/dL (8.5-10.1) Total Bilirubin 0.3 mg/dL (0.2-1.0) Aspartate Amino Transf (AST/SGOT) 13 U/L (15-37) Alanine Aminotransferase (ALT/SGPT) 17 U/L (14-59) Alkaline Phosphatase 36 U/L (46-116) Total Protein 5.7 g/dL (6.4-8.2) Albumin 2.8 g/dL (3.4-5.0) Albumin/Globulin Ratio 1.0 (1.0-1.7) O2 Saturation 98 % (92-99) 97 % (92-99) 95 % (92-99) Arterial Blood pH 7.44 (7.35-7.45) 7.37 (7.35-7.45) 7.17 (7.35-7.45) Arterial Blood pCO2 at Patient Temp 36 mmHg (35-46) 45 mmHg (35-46) 75 mmHg (35-46) Arterial Blood pO2 at Patient Temp 114 mmHg (65-108) 100 mmHg (65-108) 89 mmHg (65-108) Arterial Blood HCO3 24 mmol/L (21-28) 26 mmol/L (21-28) 27 mmol/L (21-28) Arterial Blood Base Excess 0 mmol/L (-3-3) 0 mmol/L (-3-3) -3 mmol/L (-3-3) FiO2 40 40 40 Test 11/16/18 19:50 11/16/18 22:05 11/17/18 04:00 11/17/18 08:00 O2 Saturation 94 % (92-99) 97 % (92-99) 98 % (92-99) Arterial Blood pH 7.21 (7.35-7.45) 7.39 (7.35-7.45) 7.43 (7.35-7.45) Arterial Blood pCO2 at Patient Temp 68 mmHg (35-46) 42 mmHg (35-46) 43 mmHg (35-46) Arterial Blood pO2 at Patient Temp 83 mmHg (65-108) 100 mmHg (65-108) 102 mmHg (65-108) Arterial Blood pO2 (Temp corrected) mmHg Arterial Blood HCO3 27 mmol/L (21-28) 25 mmol/L (21-28) 28 mmol/L (21-28) Arterial Blood Base Excess -2 mmol/L (-3-3) 0 mmol/L (-3-3) 3 mmol/L (-3-3) FiO2 35 40 40 White Blood Count 9.3 x10^3/uL (4.0-11.0) Red Blood Count 3.63 x10^6/uL (3.50-5.40) Hemoglobin 10.6 g/dL (12.0-15.5) Hematocrit 32.5 % (36.0-47.0) Mean Corpuscular Volume 90 fL (79-100) Mean Corpuscular Hemoglobin 29 pg (25-35) Mean Corpuscular Hemoglobin Concent 32 g/dL (31-37) Red Cell Distribution Width 14.9 % (11.5-14.5) Platelet Count 260 x10^3/uL (140-400) Neutrophils (%) (Auto) 90 % (31-73) Lymphocytes (%) (Auto) 6 % (24-48) Monocytes (%) (Auto) 4 % (0-9) Eosinophils (%) (Auto) 0 % (0-3) Basophils (%) (Auto) 0 % (0-3) Neutrophils # (Auto) 8.3 x10^3/uL (1.8-7.7) Lymphocytes # (Auto) 0.5 x10^3/uL (1.0-4.8) Monocytes # (Auto) 0.4 x10^3/uL (0.0-1.1) Eosinophils # (Auto) 0.0 x10^3/uL (0.0-0.7) Basophils # (Auto) 0.0 x10^3/uL (0.0-0.2) Sodium Level 144 mmol/L (136-145) Potassium Level 3.9 mmol/L (3.5-5.1) Chloride Level 108 mmol/L (98-107) Carbon Dioxide Level 29 mmol/L (21-32) Anion Gap 7 (6-14) Blood Urea Nitrogen 24 mg/dL (7-20) Creatinine 0.6 mg/dL (0.6-1.0) Estimated GFR (Cockcroft-Gault) 100.6 BUN/Creatinine Ratio 40 (6-20) Glucose Level 124 mg/dL (70-99) Calcium Level 9.1 mg/dL (8.5-10.1) Magnesium Level 2.2 mg/dL (1.8-2.4) Total Bilirubin 0.3 mg/dL (0.2-1.0) Aspartate Amino Transf (AST/SGOT) 11 U/L (15-37) Alanine Aminotransferase (ALT/SGPT) 20 U/L (14-59) Alkaline Phosphatase 35 U/L (46-116) Total Protein 5.7 g/dL (6.4-8.2) Albumin 2.9 g/dL (3.4-5.0) Albumin/Globulin Ratio 1.0 (1.0-1.7) Laboratory Tests Test 11/16/18 11:40 11/16/18 17:22 11/16/18 19:50 11/16/18 22:05 O2 Saturation 97 % (92-99) 95 % (92-99) 94 % (92-99) 97 % (92-99) Arterial Blood pH 7.37 (7.35-7.45) 7.17 (7.35-7.45) 7.21 (7.35-7.45) 7.39 (7.35-7.45) Arterial Blood pCO2 at Patient Temp 45 mmHg (35-46) 75 mmHg (35-46) 68 mmHg (35-46) 42 mmHg (35-46) Arterial Blood pO2 at Patient Temp 100 mmHg (65-108) 89 mmHg (65-108) 83 mmHg (65-108) 100 mmHg (65-108) Arterial Blood HCO3 26 mmol/L (21-28) 27 mmol/L (21-28) 27 mmol/L (21-28) 25 mmol/L (21-28) Arterial Blood Base Excess 0 mmol/L (-3-3) -3 mmol/L (-3-3) -2 mmol/L (-3-3) 0 mmol/L (-3-3) FiO2 40 40 35 40 Arterial Blood pO2 (Temp corrected) mmHg Test 11/17/18 04:00 11/17/18 08:00 White Blood Count 9.3 x10^3/uL (4.0-11.0) Red Blood Count 3.63 x10^6/uL (3.50-5.40) Hemoglobin 10.6 g/dL (12.0-15.5) Hematocrit 32.5 % (36.0-47.0) Mean Corpuscular Volume 90 fL (79-100) Mean Corpuscular Hemoglobin 29 pg (25-35) Mean Corpuscular Hemoglobin Concent 32 g/dL (31-37) Red Cell Distribution Width 14.9 % (11.5-14.5) Platelet Count 260 x10^3/uL (140-400) Neutrophils (%) (Auto) 90 % (31-73) Lymphocytes (%) (Auto) 6 % (24-48) Monocytes (%) (Auto) 4 % (0-9) Eosinophils (%) (Auto) 0 % (0-3) Basophils (%) (Auto) 0 % (0-3) Neutrophils # (Auto) 8.3 x10^3/uL (1.8-7.7) Lymphocytes # (Auto) 0.5 x10^3/uL (1.0-4.8) Monocytes # (Auto) 0.4 x10^3/uL (0.0-1.1) Eosinophils # (Auto) 0.0 x10^3/uL (0.0-0.7) Basophils # (Auto) 0.0 x10^3/uL (0.0-0.2) Sodium Level 144 mmol/L (136-145) Potassium Level 3.9 mmol/L (3.5-5.1) Chloride Level 108 mmol/L (98-107) Carbon Dioxide Level 29 mmol/L (21-32) Anion Gap 7 (6-14) Blood Urea Nitrogen 24 mg/dL (7-20) Creatinine 0.6 mg/dL (0.6-1.0) Estimated GFR (Cockcroft-Gault) 100.6 BUN/Creatinine Ratio 40 (6-20) Glucose Level 124 mg/dL (70-99) Calcium Level 9.1 mg/dL (8.5-10.1) Magnesium Level 2.2 mg/dL (1.8-2.4) Total Bilirubin 0.3 mg/dL (0.2-1.0) Aspartate Amino Transf (AST/SGOT) 11 U/L (15-37) Alanine Aminotransferase (ALT/SGPT) 20 U/L (14-59) Alkaline Phosphatase 35 U/L (46-116) Total Protein 5.7 g/dL (6.4-8.2) Albumin 2.9 g/dL (3.4-5.0) Albumin/Globulin Ratio 1.0 (1.0-1.7) O2 Saturation 98 % (92-99) Arterial Blood pH 7.43 (7.35-7.45) Arterial Blood pCO2 at Patient Temp 43 mmHg (35-46) Arterial Blood pO2 at Patient Temp 102 mmHg (65-108) Arterial Blood HCO3 28 mmol/L (21-28) Arterial Blood Base Excess 3 mmol/L (-3-3) FiO2 40 Medications Active Scripts Medications Dose Route/Sig Max Daily Dose Days Date Category Guaifenesin Dm Syrup (Guaifenesin/Dextromethorphan) 5 Ml Syrup 10 Ml PO PRN Q6HRS PRN MDD 1 7 10/03/18 Rx Incruse Ellipta (Umeclidinium [place]) 62.5 Mcg Blst.w.dev 62.5 Mcg IH DAILY 07/11/17 Reported Breo Ellipta 100-25 Mcg Inh (Fluticasone/Vilanterol) 1 Each Aer.pow.ba 1 Puff IH DAILY 07/11/17 Reported Tudorza Pressair (Aclidinium [place]) 400 Mcg Aer.pow.ba 400 Mcg IH DAILY 07/11/17 Reported Comments CX 11/17 no infiltrates Impression . 1. [id number]-[id number] hypercapnic respiratory failure secondary to acute exacerbation of chronic obstructive pulmonary disease and also shock. extubated yesterday am, did well till last night . developed worsening respiratory acidosis, failed BIPAP , Re-intubated, AC mode 2. Shock, likely a combination of hypovolemic and septic shock. off levo 3. Low-grade fever. Source could be in the lungs, although chest x-ray does not show definite consolidation 4. Suspect underlying severe chronic obstructive pulmonary disease with chronic hypercapnia. 5. Mild azotemia. 6. Iktg-yc-ilazskjp protein-calorie malnutrition. Plan . 1. Continue with present assist control mode. rest over .Re trial Tuesday 2. Broad-spectrum antibiotics. 3. Follow cultures. 4. Monitor BP closely 5. off Levophed .keep systolic pressure above 100. 6. Continue DuoNeb. 7. Deep venous thrombosis prophylaxis. 8. Stress ulcer prophylaxis. 9. Discussed with RN, discussed with RT. 10. d/w daughter in detail and informed her of current condition Critical care time 30 minutes. XENA MCGRAW MD Nov 17, 2018 09:54
--- NOTE | 2018-11-17 10:39 | RAD ---
Chest radiograph 11/17/2018 9:00 AM INDICATION: On ventilator COMPARISON: November 16, 2018 TECHNIQUE: Supine frontal view of the chest is provided. FINDINGS: The cardiomediastinal silhouette is within normal limits. Endotracheal tube and nasogastric tube are in similar position. There are no pleural effusions. There is no pulmonary vascular congestion. There is no pneumothorax. Patchy interstitial changes at the right lung base may represent subsegmental atelectasis. Pulmonary emphysematous changes are noted. No significant osseous abnormality is identified. IMPRESSION: Stable support lines and tubes. Aeration of the lungs appears similar to the prior examination. Electronically signed by: Inessa Stokes MD (11/17/2018 10:36 AM) [id number]
[2018-11-17] MEDS: ENOXAPARIN 40 MG/0.4 ML SYRINGE. SQ SCH (10:54)
[2018-11-17] MEDS: FAMOTIDINE 20 MG/2 ML VIAL IVP SCH ×2 (10:55→21:44)
[2018-11-17] MEDS: CEFEPIME HCL IV Push 2 GM VIAL. IVP SCH ×2 (10:55→21:43)
[2018-11-17] MEDS: methylPREDNISolone SOD SUCC PF 125 MG/2 ML VIAL. IV SCH ×2 (10:55→21:44)
[2018-11-17] MEDS ORDERED: DEXTROSE 50% 25 GM / 50ML DISP.SYRIN. IV PRN (11:30)
--- NOTE | 2018-11-17 12:40 | NUR ---
No trial for today through weekend per Dr. Snider.
[2018-11-18] VITALS (23 sets, daily range): BP systolic 101–151; BP diastolic 56–76
[2018-11-18] MEDS: IPRATRPIUM/ALBUTEROL 0.5/2.5MG 3 ML NEBU. NEB SCH ×5 (04:09→20:44)
[2018-11-18 04:29] LABS: BASO % 0 % (0-3); EOS % 0 % (0-3); HEMATOCRIT 33.2 % (36.0-47.0); HEMOGLOBIN 10.8 g/dL (12.0-15.5); LYMPH # 0.3 x10^3/uL (1.0-4.8); LYMPH % 3 % (24-48); MEAN CORPUSCULAR HEMOGLOBIN 29 pg (25-35); MEAN CORPUSCULAR HGB CONC 32 g/dL (31-37); MEAN CORPUSCULAR VOLUME 90 fL (79-100); MONO # 0.5 x10^3/uL (0.0-1.1); MONO % 6 % (0-9); NEUT # 8.1 x10^3/uL (1.8-7.7); NEUT % 91 % (31-73); PLATELET COUNT 253 x10^3/uL (140-400); RED BLOOD COUNT 3.68 x10^6/uL (3.50-5.40)
[2018-11-18 05:21] LABS: ALBUMIN 2.8 g/dL (3.4-5.0); CALCIUM 8.9 mg/dL (8.5-10.1); CREATININE 0.5 mg/dL (0.6-1.0); GFR 124.2; PHOSPHORUS 2.8 mg/dL (2.6-4.7); POTASSIUM 3.8 mmol/L (3.5-5.1)
[2018-11-18] MEDS: PROPOFOL 100 ML IV PRN ×3 (06:29→21:51)
--- NOTE | 2018-11-18 07:11 | PDOC ---
PULMONARY PROGRESS NOTES Subjective on vent, sedated, prop, fentanyl, small ett secretion extubated 11/16, developed worsening respiratory acidosis, failed BIPAP , Re- intubated on 11/16 Vitals Vital Signs Date Time Temp Pulse Resp B/P (MAP) Pulse Ox O2 Delivery O2 Flow Rate FiO2 11/18/18 06:00 56 18 133/67 (89) 97 11/18/18 05:07 3.0 11/18/18 05:00 98.2 Ventilator 98.2 Comments ros as mentioned as above discussed w rn other sys otherwise neg sedated on vent HEENT: Other (nc at perrl nose clear orally intubated neck no lad, no thyromegaly) Lungs: Clear Cardiovascular: S1, S2 Abdomen: Soft, Non-tender, Other (no mass) Neuro Exam: Alert Extremities: No Edema Skin: Warm Labs Laboratory Tests Test 11/16/18 08:00 11/16/18 11:40 11/16/18 17:22 11/16/18 19:50 O2 Saturation 98 % (92-99) 97 % (92-99) 95 % (92-99) 94 % (92-99) Arterial Blood pH 7.44 (7.35-7.45) 7.37 (7.35-7.45) 7.17 (7.35-7.45) 7.21 (7.35-7.45) Arterial Blood pCO2 at Patient Temp 36 mmHg (35-46) 45 mmHg (35-46) 75 mmHg (35-46) 68 mmHg (35-46) Arterial Blood pO2 at Patient Temp 114 mmHg (65-108) 100 mmHg (65-108) 89 mmHg (65-108) 83 mmHg (65-108) Arterial Blood HCO3 24 mmol/L (21-28) 26 mmol/L (21-28) 27 mmol/L (21-28) 27 mmol/L (21-28) Arterial Blood Base Excess 0 mmol/L (-3-3) 0 mmol/L (-3-3) -3 mmol/L (-3-3) -2 mmol/L (-3-3) FiO2 40 40 40 35 Arterial Blood pO2 (Temp corrected) mmHg Test 11/16/18 22:05 11/17/18 04:00 11/17/18 08:00 7/12/19 12:06 O2 Saturation 97 % (92-99) 98 % (92-99) Arterial Blood pH 7.39 (7.35-7.45) 7.43 (7.35-7.45) Arterial Blood pCO2 at Patient Temp 42 mmHg (35-46) 43 mmHg (35-46) Arterial Blood pO2 at Patient Temp 100 mmHg (65-108) 102 mmHg (65-108) Arterial Blood HCO3 25 mmol/L (21-28) 28 mmol/L (21-28) Arterial Blood Base Excess 0 mmol/L (-3-3) 3 mmol/L (-3-3) FiO2 40 40 White Blood Count 9.3 x10^3/uL (4.0-11.0) Red Blood Count 3.63 x10^6/uL (3.50-5.40) Hemoglobin 10.6 g/dL (12.0-15.5) Hematocrit 32.5 % (36.0-47.0) Mean Corpuscular Volume 90 fL (79-100) Mean Corpuscular Hemoglobin 29 pg (25-35) Mean Corpuscular Hemoglobin Concent 32 g/dL (31-37) Red Cell Distribution Width 14.9 % (11.5-14.5) Platelet Count 260 x10^3/uL (140-400) Neutrophils (%) (Auto) 90 % (31-73) Lymphocytes (%) (Auto) 6 % (24-48) Monocytes (%) (Auto) 4 % (0-9) Eosinophils (%) (Auto) 0 % (0-3) Basophils (%) (Auto) 0 % (0-3) Neutrophils # (Auto) 8.3 x10^3/uL (1.8-7.7) Lymphocytes # (Auto) 0.5 x10^3/uL (1.0-4.8) Monocytes # (Auto) 0.4 x10^3/uL (0.0-1.1) Eosinophils # (Auto) 0.0 x10^3/uL (0.0-0.7) Basophils # (Auto) 0.0 x10^3/uL (0.0-0.2) Sodium Level 144 mmol/L (136-145) Potassium Level 3.9 mmol/L (3.5-5.1) Chloride Level 108 mmol/L (98-107) Carbon Dioxide Level 29 mmol/L (21-32) Anion Gap 7 (6-14) Blood Urea Nitrogen 24 mg/dL (7-20) Creatinine 0.6 mg/dL (0.6-1.0) Estimated GFR (Cockcroft-Gault) 100.6 BUN/Creatinine Ratio 40 (6-20) Glucose Level 124 mg/dL (70-99) Calcium Level 9.1 mg/dL (8.5-10.1) Magnesium Level 2.2 mg/dL (1.8-2.4) Total Bilirubin 0.3 mg/dL (0.2-1.0) Aspartate Amino Transf (AST/SGOT) 11 U/L (15-37) Alanine Aminotransferase (ALT/SGPT) 20 U/L (14-59) Alkaline Phosphatase 35 U/L (46-116) Total Protein 5.7 g/dL (6.4-8.2) Albumin 2.9 g/dL (3.4-5.0) Albumin/Globulin Ratio 1.0 (1.0-1.7) Glucose (Fingerstick) 105 mg/dL (70-99) Test 11/17/18 18:13 11/18/18 00:13 11/18/18 03:30 Glucose (Fingerstick) 127 mg/dL (70-99) 147 mg/dL (70-99) White Blood Count 9.0 x10^3/uL (4.0-11.0) Red Blood Count 3.68 x10^6/uL (3.50-5.40) Hemoglobin 10.8 g/dL (12.0-15.5) Hematocrit 33.2 % (36.0-47.0) Mean Corpuscular Volume 90 fL (79-100) Mean Corpuscular Hemoglobin 29 pg (25-35) Mean Corpuscular Hemoglobin Concent 32 g/dL (31-37) Red Cell Distribution Width 15.0 % (11.5-14.5) Platelet Count 253 x10^3/uL (140-400) Neutrophils (%) (Auto) 91 % (31-73) Lymphocytes (%) (Auto) 3 % (24-48) Monocytes (%) (Auto) 6 % (0-9) Eosinophils (%) (Auto) 0 % (0-3) Basophils (%) (Auto) 0 % (0-3) Neutrophils # (Auto) 8.1 x10^3/uL (1.8-7.7) Lymphocytes # (Auto) 0.3 x10^3/uL (1.0-4.8) Monocytes # (Auto) 0.5 x10^3/uL (0.0-1.1) Eosinophils # (Auto) 0.0 x10^3/uL (0.0-0.7) Basophils # (Auto) 0.0 x10^3/uL (0.0-0.2) Sodium Level 141 mmol/L (136-145) Potassium Level 3.8 mmol/L (3.5-5.1) Chloride Level 106 mmol/L (98-107) Carbon Dioxide Level 24 mmol/L (21-32) Anion Gap 11 (6-14) Blood Urea Nitrogen 28 mg/dL (7-20) Creatinine 0.5 mg/dL (0.6-1.0) Estimated GFR (Cockcroft-Gault) 124.2 Glucose Level 143 mg/dL (70-99) Calcium Level 8.9 mg/dL (8.5-10.1) Phosphorus Level 2.8 mg/dL (2.6-4.7) Albumin 2.8 g/dL (3.4-5.0) Laboratory Tests Test 11/17/18 08:00 11/17/18 12:06 11/17/18 18:13 11/18/18 00:13 O2 Saturation 98 % (92-99) Arterial Blood pH 7.43 (7.35-7.45) Arterial Blood pCO2 at Patient Temp 43 mmHg (35-46) Arterial Blood pO2 at Patient Temp 102 mmHg (65-108) Arterial Blood HCO3 28 mmol/L (21-28) Arterial Blood Base Excess 3 mmol/L (-3-3) FiO2 40 Glucose (Fingerstick) 105 mg/dL (70-99) 127 mg/dL (70-99) 147 mg/dL (70-99) Test 11/18/18 03:30 White Blood Count 9.0 x10^3/uL (4.0-11.0) Red Blood Count 3.68 x10^6/uL (3.50-5.40) Hemoglobin 10.8 g/dL (12.0-15.5) Hematocrit 33.2 % (36.0-47.0) Mean Corpuscular Volume 90 fL (79-100) Mean Corpuscular Hemoglobin 29 pg (25-35) Mean Corpuscular Hemoglobin Concent 32 g/dL (31-37) Red Cell Distribution Width 15.0 % (11.5-14.5) Platelet Count 253 x10^3/uL (140-400) Neutrophils (%) (Auto) 91 % (31-73) Lymphocytes (%) (Auto) 3 % (24-48) Monocytes (%) (Auto) 6 % (0-9) Eosinophils (%) (Auto) 0 % (0-3) Basophils (%) (Auto) 0 % (0-3) Neutrophils # (Auto) 8.1 x10^3/uL (1.8-7.7) Lymphocytes # (Auto) 0.3 x10^3/uL (1.0-4.8) Monocytes # (Auto) 0.5 x10^3/uL (0.0-1.1) Eosinophils # (Auto) 0.0 x10^3/uL (0.0-0.7) Basophils # (Auto) 0.0 x10^3/uL (0.0-0.2) Sodium Level 141 mmol/L (136-145) Potassium Level 3.8 mmol/L (3.5-5.1) Chloride Level 106 mmol/L (98-107) Carbon Dioxide Level 24 mmol/L (21-32) Anion Gap 11 (6-14) Blood Urea Nitrogen 28 mg/dL (7-20) Creatinine 0.5 mg/dL (0.6-1.0) Estimated GFR (Cockcroft-Gault) 124.2 Glucose Level 143 mg/dL (70-99) Calcium Level 8.9 mg/dL (8.5-10.1) Phosphorus Level 2.8 mg/dL (2.6-4.7) Albumin 2.8 g/dL (3.4-5.0) Medications Active Scripts Medications Dose Route/Sig Max Daily Dose Days Date Category Guaifenesin Dm Syrup (Guaifenesin/Dextromethorphan) 5 Ml Syrup 10 Ml PO PRN Q6HRS PRN MDD 1 7 10/03/18 Rx Incruse Ellipta (Umeclidinium [place]) 62.5 Mcg Blst.w.dev 62.5 Mcg IH DAILY 07/11/17 Reported Breo Ellipta 100-25 Mcg Inh (Fluticasone/Vilanterol) 1 Each Aer.pow.ba 1 Puff IH DAILY 07/11/17 Reported Tudorza Pressair (Aclidinium [place]) 400 Mcg Aer.pow.ba 400 Mcg IH DAILY 07/11/17 Reported Comments CXR 11/18, reviewed no infiltrates, ett ok Impression . 1. Qdzjl-kt-yzeltxp hypercapnic respiratory failure secondary to acute exacerbation of chronic obstructive pulmonary disease and also shock. Re- intubated 11/16, AC mode 2. Shock, likely a combination of hypovolemic and septic shock. off levo 3. Low-grade fever. Source could be in the lungs, although chest x-ray does not show definite consolidation 4. Suspect underlying severe chronic obstructive pulmonary disease with chronic hypercapnia. 5. Mild azotemia. 6. Fvrd-hl-tystrupf protein-calorie malnutrition. 7. Plan . 1. Continue vent support, setting reviewed. sbt on tuesday 2. Broad-spectrum antibiotics. 3. Follow cultures. 4. Monitor BP closely 5. off Levophed .keep systolic pressure above 100. 6. Continue DuoNeb. 7. Deep venous thrombosis prophylaxis. 8. Stress ulcer prophylaxis. 9. elevate hob Discussed with RN, discussed with RT. YUMIKO LIM MD Nov 18, 2018 07:11
[2018-11-18 07:55] LABS: BASE EXCESS ABG 2 mmol/L (-3-3); HCO3 ABG 27 mmol/L (21-28); PCO2 ABG 41 mmHg (35-46); PO2 ABG 94 mmHg (65-108); SAT O2 ABG 97 % (92-99)
[2018-11-18] MEDS: FAMOTIDINE 20 MG/2 ML VIAL IVP SCH ×2 (08:30→20:58)
[2018-11-18] MEDS: methylPREDNISolone SOD SUCC PF 125 MG/2 ML VIAL. IV SCH ×2 (08:32→20:58)
[2018-11-18] MEDS: CEFEPIME HCL IV Push 2 GM VIAL. IVP SCH ×2 (08:34→20:59)
[2018-11-18] MEDS: ENOXAPARIN 40 MG/0.4 ML SYRINGE. SQ SCH (08:44)
--- NOTE | 2018-11-18 09:32 | PDOC ---
Infectious Disease Note Subjective Subjective Orally intubated, FiO2 40% satting 98% Sedated No fevers Tube feedings 40 ml/hr ROS ROS o/w neg Vital Sign Vital Signs Vital Signs Date Time Temp Pulse Resp B/P (MAP) Pulse Ox O2 Delivery O2 Flow Rate FiO2 11/18/18 09:09 97 Ventilator 11/18/18 09:02 98.1 61 18 117/65 (82) 98.1 11/18/18 08:00 3.0 Physical Exam PHYSICAL EXAM GENERAL: Intubated, female, appears comfortable. HEENT: Normocephalic, atraumatic, anicteric. No thrush. Oral mucosa is moist. ETT is in place. NECK: Supple. LUNGS: Decreased breath sounds at the bases. No wheezing. HEART: S1, S2. Systolic murmur present. ABDOMEN: Soft, nontender, nondistended, no rebound, no guarding. : Carvalho in place EXTREMITIES: No cyanosis, no clubbing. No edema. DERMATOLOGIC: Warm, dry. No generalized rash. NEUROLOGIC: Intubated, SEDATED, appears comfortable. Opened eyes on my exam Labs Lab Laboratory Tests Test 11/17/18 12:06 11/17/18 18:13 11/18/18 00:13 11/18/18 03:30 Glucose (Fingerstick) 105 mg/dL (70-99) 127 mg/dL (70-99) 147 mg/dL (70-99) White Blood Count 9.0 x10^3/uL (4.0-11.0) Red Blood Count 3.68 x10^6/uL (3.50-5.40) Hemoglobin 10.8 g/dL (12.0-15.5) Hematocrit 33.2 % (36.0-47.0) Mean Corpuscular Volume 90 fL (79-100) Mean Corpuscular Hemoglobin 29 pg (25-35) Mean Corpuscular Hemoglobin Concent 32 g/dL (31-37) Red Cell Distribution Width 15.0 % (11.5-14.5) Platelet Count 253 x10^3/uL (140-400) Neutrophils (%) (Auto) 91 % (31-73) Lymphocytes (%) (Auto) 3 % (24-48) Monocytes (%) (Auto) 6 % (0-9) Eosinophils (%) (Auto) 0 % (0-3) Basophils (%) (Auto) 0 % (0-3) Neutrophils # (Auto) 8.1 x10^3/uL (1.8-7.7) Lymphocytes # (Auto) 0.3 x10^3/uL (1.0-4.8) Monocytes # (Auto) 0.5 x10^3/uL (0.0-1.1) Eosinophils # (Auto) 0.0 x10^3/uL (0.0-0.7) Basophils # (Auto) 0.0 x10^3/uL (0.0-0.2) Sodium Level 141 mmol/L (136-145) Potassium Level 3.8 mmol/L (3.5-5.1) Chloride Level 106 mmol/L (98-107) Carbon Dioxide Level 24 mmol/L (21-32) Anion Gap 11 (6-14) Blood Urea Nitrogen 28 mg/dL (7-20) Creatinine 0.5 mg/dL (0.6-1.0) Estimated GFR (Cockcroft-Gault) 124.2 Glucose Level 143 mg/dL (70-99) Calcium Level 8.9 mg/dL (8.5-10.1) Phosphorus Level 2.8 mg/dL (2.6-4.7) Albumin 2.8 g/dL (3.4-5.0) Micro 11/14/18 Blood Culture - Preliminary, Resulted NO GROWTH AFTER 3 DAYS URINE CULTURE RES 1 Final No growth Objective Assessment Hypotension, questionable sepsis. Acute on chronic respiratory failure. Suspected emphysema. Moderate aortic stenosis. Encephalopathy, likely metabolic, improving. Anxiety. Obstructive sleep apnea. Protein-calorie malnutrition. Anemia. Plan Plan of Care empiric cefepime, (11/14). Steroids Cultures neg to date Supportive care. D/w nursing Attending Co-Sign Attending Co-Sign The patient was seen and interviewed as well as examined at the bedside. The chart was reviewed. The case was discussed. Agree with the plan of care. LASHELL HWANG APRN Nov 18, 2018 09:32 GENARO PEPPER MD Nov 18, 2018 13:20
--- NOTE | 2018-11-18 09:56 | RAD ---
PORTABLE CHEST 1V Clinical indications: On the ventilator. COMPARISON: November 17, 2018. Findings: No new lung infiltrate or pleural effusion or pulmonary edema or lung mass or pneumothorax is seen. The heart size, pulmonary vasculature, mediastinum and both erickson are unremarkable. There have been no interval tube or line changes. Impression: No new radiographic abnormality is seen. Electronically signed by: Harris Diaz MD (11/18/2018 9:53 AM) [facility]
[2018-11-18 10:03] LABS: FIO2 ABG 40
--- NOTE | 2018-11-18 10:03 | PDOC ---
PROGRESS NOTES Chief Complaint Chief Complaint 63 old female who is an ex-smoker, admitted again for COPD exacerbation, needing intubation History of Present Illness History of Present Illness Assessment/Plan Assessment/Plan acute hypercarbic respiratory failure, critical pH and PCO2 levels metabolic encephalopathy acute hypoxia COPD with acute bronchitis exacerbation of chronic obstructive pulmonary disease shock. likely a combination of hypovolemic and septic shock. RECENT ECHO 09/24 Transmitral Doppler flow pattern is Grade I-abnormal relaxation pattern. Moderate aortic stenosis. Trace mitral regurgitation. Trace tricuspid regurgitation. The PA pressure was estimated at 36 mmHg. Small bilateral lung nodules. follow-up noncontrast chest CT SOON per Fleischner guidelines. MODERATE PROTEIN-CALORIC MALNUTRITION ICU, pulm FOLLOWING ID CONSULT CARDIOLOGY CONSULT/// RE SHOCK, AORTIC STENOSIS Deep venous thrombosis prophylaxis. Stress ulcer prophylaxis. d/c vanc Wean Levophed to keep systolic pressure above 100. Tube feedings 40 ml/hr 11/17 worsening respiratory acidosis, failed BIPAP , Re-intubated, AC mode 11/18 BLOOD CULT NEG TO DATE present assist control mode. sbt on tuesday 39 min CC TIME Vitals Vitals Vital Signs Date Time Temp Pulse Resp B/P (MAP) Pulse Ox O2 Delivery O2 Flow Rate FiO2 11/18/18 09:09 97 Ventilator 11/18/18 09:02 98.1 61 18 117/65 (82) 98.1 11/18/18 08:00 3.0 Physical Exam Physical Exam GENERAL: Intubated, female, appears comfortable. HEENT: Normocephalic, atraumatic, anicteric. No thrush. Oral mucosa is moist. ETT is in place. NECK: Supple. LUNGS: Decreased breath sounds at the bases. No wheezing. HEART: S1, S2. Systolic murmur present. ABDOMEN: Soft, nontender, nondistended, no rebound, no guarding. EXTREMITIES: No cyanosis, no clubbing. No edema. DERMATOLOGIC: Warm, dry. No generalized rash. NEUROLOGIC: Intubated, SEDATED, appears comfortable. General: No acute distress, Other (sedated on vent) Heart: Regular rate (SR no ectopies), Other (3/6 systolic murmur to AKIN border) Lungs: Clear Abdomen: Soft, No tenderness Extremities: No cyanosis Skin: No breakdown, No significant lesion Labs LABS SPEC #: [id number] NEGRO: 11/14/18 STATUS: RES REQ #: [id number] RECD: 11/14/[address]: JACOB VAZQUEZ DO SOURCE: BLOOD ENTR: 11/14/[address]: UNKNOWN PCP NAME SPDESC: ORDERED: BCULT Procedure Result BLOOD CULTURE Preliminary NO GROWTH AFTER 3 DAYS SPEC #: [id number] NEGRO: 11/14/18 STATUS: COMP REQ #: [id number] RECD: 11/14/[address]: JACOB VAZQUEZ DO SOURCE: URINE FOL ENTR: 11/14/[address]: JOSE RUBY MD SPDESC: ANDREW CORTES MD UNKNOWN PCP NAME ORDERED: URINE CULTURE Procedure Result URINE CULTURE Final Final report URINE CULTURE RES 1 Final No growth Performed at: - [facility] [id number] [facility] [address], [place], [place] [id number] [employer]: IZABELLA Santiago MD, Phone: [phone] Laboratory Tests Test 11/17/18 12:06 11/17/18 18:13 11/18/18 00:13 11/18/18 03:30 Glucose (Fingerstick) 105 mg/dL (70-99) 127 mg/dL (70-99) 147 mg/dL (70-99) White Blood Count 9.0 x10^3/uL (4.0-11.0) Red Blood Count 3.68 x10^6/uL (3.50-5.40) Hemoglobin 10.8 g/dL (12.0-15.5) Hematocrit 33.2 % (36.0-47.0) Mean Corpuscular Volume 90 fL (79-100) Mean Corpuscular Hemoglobin 29 pg (25-35) Mean Corpuscular Hemoglobin Concent 32 g/dL (31-37) Red Cell Distribution Width 15.0 % (11.5-14.5) Platelet Count 253 x10^3/uL (140-400) Neutrophils (%) (Auto) 91 % (31-73) Lymphocytes (%) (Auto) 3 % (24-48) Monocytes (%) (Auto) 6 % (0-9) Eosinophils (%) (Auto) 0 % (0-3) Basophils (%) (Auto) 0 % (0-3) Neutrophils # (Auto) 8.1 x10^3/uL (1.8-7.7) Lymphocytes # (Auto) 0.3 x10^3/uL (1.0-4.8) Monocytes # (Auto) 0.5 x10^3/uL (0.0-1.1) Eosinophils # (Auto) 0.0 x10^3/uL (0.0-0.7) Basophils # (Auto) 0.0 x10^3/uL (0.0-0.2) Sodium Level 141 mmol/L (136-145) Potassium Level 3.8 mmol/L (3.5-5.1) Chloride Level 106 mmol/L (98-107) Carbon Dioxide Level 24 mmol/L (21-32) Anion Gap 11 (6-14) Blood Urea Nitrogen 28 mg/dL (7-20) Creatinine 0.5 mg/dL (0.6-1.0) Estimated GFR (Cockcroft-Gault) 124.2 Glucose Level 143 mg/dL (70-99) Calcium Level 8.9 mg/dL (8.5-10.1) Phosphorus Level 2.8 mg/dL (2.6-4.7) Albumin 2.8 g/dL (3.4-5.0) Test 11/18/18 07:50 O2 Saturation 97 % (92-99) Arterial Blood pH 7.43 (7.35-7.45) Arterial Blood pCO2 at Patient Temp 41 mmHg (35-46) Arterial Blood pO2 at Patient Temp 94 mmHg (65-108) Arterial Blood HCO3 27 mmol/L (21-28) Arterial Blood Base Excess 2 mmol/L (-3-3) FiO2 40 Assessment and Plan Assessmemt and Plan Problems Medical Problems: (1) Acute hypercapnic respiratory failure Status: Acute Comment Review of Relevant I have reviewed the following items heaven (where applicable) has been applied. Labs Laboratory Tests Test 11/16/18 11:40 11/16/18 17:22 11/16/18 19:50 11/16/18 22:05 O2 Saturation 97 % (92-99) 95 % (92-99) 94 % (92-99) 97 % (92-99) Arterial Blood pH 7.37 (7.35-7.45) 7.17 (7.35-7.45) 7.21 (7.35-7.45) 7.39 (7.35-7.45) Arterial Blood pCO2 at Patient Temp 45 mmHg (35-46) 75 mmHg (35-46) 68 mmHg (35-46) 42 mmHg (35-46) Arterial Blood pO2 at Patient Temp 100 mmHg (65-108) 89 mmHg (65-108) 83 mmHg (65-108) 100 mmHg (65-108) Arterial Blood HCO3 26 mmol/L (21-28) 27 mmol/L (21-28) 27 mmol/L (21-28) 25 mmol/L (21-28) Arterial Blood Base Excess 0 mmol/L (-3-3) -3 mmol/L (-3-3) -2 mmol/L (-3-3) 0 mmol/L (-3-3) FiO2 40 40 35 40 Arterial Blood pO2 (Temp corrected) mmHg Test 11/17/18 04:00 11/17/18 08:00 11/17/18 12:06 11/17/18 18:13 White Blood Count 9.3 x10^3/uL (4.0-11.0) Red Blood Count 3.63 x10^6/uL (3.50-5.40) Hemoglobin 10.6 g/dL (12.0-15.5) Hematocrit 32.5 % (36.0-47.0) Mean Corpuscular Volume 90 fL (79-100) Mean Corpuscular Hemoglobin 29 pg (25-35) Mean Corpuscular Hemoglobin Concent 32 g/dL (31-37) Red Cell Distribution Width 14.9 % (11.5-14.5) Platelet Count 260 x10^3/uL (140-400) Neutrophils (%) (Auto) 90 % (31-73) Lymphocytes (%) (Auto) 6 % (24-48) Monocytes (%) (Auto) 4 % (0-9) Eosinophils (%) (Auto) 0 % (0-3) Basophils (%) (Auto) 0 % (0-3) Neutrophils # (Auto) 8.3 x10^3/uL (1.8-7.7) Lymphocytes # (Auto) 0.5 x10^3/uL (1.0-4.8) Monocytes # (Auto) 0.4 x10^3/uL (0.0-1.1) Eosinophils # (Auto) 0.0 x10^3/uL (0.0-0.7) Basophils # (Auto) 0.0 x10^3/uL (0.0-0.2) Sodium Level 144 mmol/L (136-145) Potassium Level 3.9 mmol/L (3.5-5.1) Chloride Level 108 mmol/L (98-107) Carbon Dioxide Level 29 mmol/L (21-32) Anion Gap 7 (6-14) Blood Urea Nitrogen 24 mg/dL (7-20) Creatinine 0.6 mg/dL (0.6-1.0) Estimated GFR (Cockcroft-Gault) 100.6 BUN/Creatinine Ratio 40 (6-20) Glucose Level 124 mg/dL (70-99) Calcium Level 9.1 mg/dL (8.5-10.1) Magnesium Level 2.2 mg/dL (1.8-2.4) Total Bilirubin 0.3 mg/dL (0.2-1.0) Aspartate Amino Transf (AST/SGOT) 11 U/L (15-37) Alanine Aminotransferase (ALT/SGPT) 20 U/L (14-59) Alkaline Phosphatase 35 U/L (46-116) Total Protein 5.7 g/dL (6.4-8.2) Albumin 2.9 g/dL (3.4-5.0) Albumin/Globulin Ratio 1.0 (1.0-1.7) O2 Saturation 98 % (92-99) Arterial Blood pH 7.43 (7.35-7.45) Arterial Blood pCO2 at Patient Temp 43 mmHg (35-46) Arterial Blood pO2 at Patient Temp 102 mmHg (65-108) Arterial Blood HCO3 28 mmol/L (21-28) Arterial Blood Base Excess 3 mmol/L (-3-3) FiO2 40 Glucose (Fingerstick) 105 mg/dL (70-99) 127 mg/dL (70-99) Test 11/18/18 00:13 11/18/18 03:30 11/18/18 07:50 Glucose (Fingerstick) 147 mg/dL (70-99) White Blood Count 9.0 x10^3/uL (4.0-11.0) Red Blood Count 3.68 x10^6/uL (3.50-5.40) Hemoglobin 10.8 g/dL (12.0-15.5) Hematocrit 33.2 % (36.0-47.0) Mean Corpuscular Volume 90 fL (79-100) Mean Corpuscular Hemoglobin 29 pg (25-35) Mean Corpuscular Hemoglobin Concent 32 g/dL (31-37) Red Cell Distribution Width 15.0 % (11.5-14.5) Platelet Count 253 x10^3/uL (140-400) Neutrophils (%) (Auto) 91 % (31-73) Lymphocytes (%) (Auto) 3 % (24-48) Monocytes (%) (Auto) 6 % (0-9) Eosinophils (%) (Auto) 0 % (0-3) Basophils (%) (Auto) 0 % (0-3) Neutrophils # (Auto) 8.1 x10^3/uL (1.8-7.7) Lymphocytes # (Auto) 0.3 x10^3/uL (1.0-4.8) Monocytes # (Auto) 0.5 x10^3/uL (0.0-1.1) Eosinophils # (Auto) 0.0 x10^3/uL (0.0-0.7) Basophils # (Auto) 0.0 x10^3/uL (0.0-0.2) Sodium Level 141 mmol/L (136-145) Potassium Level 3.8 mmol/L (3.5-5.1) Chloride Level 106 mmol/L (98-107) Carbon Dioxide Level 24 mmol/L (21-32) Anion Gap 11 (6-14) Blood Urea Nitrogen 28 mg/dL (7-20) Creatinine 0.5 mg/dL (0.6-1.0) Estimated GFR (Cockcroft-Gault) 124.2 Glucose Level 143 mg/dL (70-99) Calcium Level 8.9 mg/dL (8.5-10.1) Phosphorus Level 2.8 mg/dL (2.6-4.7) Albumin 2.8 g/dL (3.4-5.0) O2 Saturation 97 % (92-99) Arterial Blood pH 7.43 (7.35-7.45) Arterial Blood pCO2 at Patient Temp 41 mmHg (35-46) Arterial Blood pO2 at Patient Temp 94 mmHg (65-108) Arterial Blood HCO3 27 mmol/L (21-28) Arterial Blood Base Excess 2 mmol/L (-3-3) FiO2 40 Laboratory Tests Test 11/17/18 12:06 11/17/18 18:13 11/18/18 00:13 11/18/18 03:30 Glucose (Fingerstick) 105 mg/dL (70-99) 127 mg/dL (70-99) 147 mg/dL (70-99) White Blood Count 9.0 x10^3/uL (4.0-11.0) Red Blood Count 3.68 x10^6/uL (3.50-5.40) Hemoglobin 10.8 g/dL (12.0-15.5) Hematocrit 33.2 % (36.0-47.0) Mean Corpuscular Volume 90 fL (79-100) Mean Corpuscular Hemoglobin 29 pg (25-35) Mean Corpuscular Hemoglobin Concent 32 g/dL (31-37) Red Cell Distribution Width 15.0 % (11.5-14.5) Platelet Count 253 x10^3/uL (140-400) Neutrophils (%) (Auto) 91 % (31-73) Lymphocytes (%) (Auto) 3 % (24-48) Monocytes (%) (Auto) 6 % (0-9) Eosinophils (%) (Auto) 0 % (0-3) Basophils (%) (Auto) 0 % (0-3) Neutrophils # (Auto) 8.1 x10^3/uL (1.8-7.7) Lymphocytes # (Auto) 0.3 x10^3/uL (1.0-4.8) Monocytes # (Auto) 0.5 x10^3/uL (0.0-1.1) Eosinophils # (Auto) 0.0 x10^3/uL (0.0-0.7) Basophils # (Auto) 0.0 x10^3/uL (0.0-0.2) Sodium Level 141 mmol/L (136-145) Potassium Level 3.8 mmol/L (3.5-5.1) Chloride Level 106 mmol/L (98-107) Carbon Dioxide Level 24 mmol/L (21-32) Anion Gap 11 (6-14) Blood Urea Nitrogen 28 mg/dL (7-20) Creatinine 0.5 mg/dL (0.6-1.0) Estimated GFR (Cockcroft-Gault) 124.2 Glucose Level 143 mg/dL (70-99) Calcium Level 8.9 mg/dL (8.5-10.1) Phosphorus Level 2.8 mg/dL (2.6-4.7) Albumin 2.8 g/dL (3.4-5.0) Test 11/18/18 07:50 O2 Saturation 97 % (92-99) Arterial Blood pH 7.43 (7.35-7.45) Arterial Blood pCO2 at Patient Temp 41 mmHg (35-46) Arterial Blood pO2 at Patient Temp 94 mmHg (65-108) Arterial Blood HCO3 27 mmol/L (21-28) Arterial Blood Base Excess 2 mmol/L (-3-3) FiO2 40 Microbiology 11/14/18 Blood Culture - Preliminary, Resulted NO GROWTH AFTER 3 DAYS 11/14/18 Urine Culture - Final, Complete 11/14/18 Urine Culture Result 1 (KRISTA) - Final, Complete Medications Current Medications Methylprednisolone Sodium Succinate (SOLU-Medrol 125MG VIAL) 125 mg 1X ONCE IV Last administered on 11/14/18at 17:14; Start 11/14/18 at 16:45; Stop 11/14/18 at 16:46; Status DC Albuterol/ Ipratropium (Duoneb) 3 ml 1X ONCE NEB Last administered on 11/14/18at 17:04; Start 11/14/18 at 16:45; Stop 11/14/18 at 16:46; Status DC Ondansetron HCl (Zofran) 4 mg 1X ONCE IV Last administered on 11/14/18at 17:13; Start 11/14/18 at 17:00; Stop 11/14/18 at 17:01; Status DC Propofol 0 ml @ As Directed STK-MED ONCE IV ; Start 11/14/18 at 18:09; Stop 11/14/18 at 18:10; Status DC Etomidate (Amidate) 20 mg STK-MED ONCE IV ; Start 11/14/18 at 18:17; Stop 11/14/18 at 18:18; Status DC Rocuronium [place] (Zemuron) 50 mg STK-MED ONCE .ROUTE ; Start 11/14/18 at 18:17; Stop 11/14/18 at 18:18; Status DC Propofol 100 ml @ 0 mls/hr CONT PRN IV SEE PROTOCOL Last administered on 11/14/18at 18:00; Start 11/14/18 at 18:30; Stop 11/15/18 at 07:38; Status DC Chlorhexidine Gluconate (Peridex) 15 ml BID MM ; Start 11/14/18 at 21:00; Stop 11/15/18 at 16:12; Status DC Midazolam HCl 100 ml @ 0 mls/hr CONT PRN IV SEE PROTOCOL; Start 11/14/18 at 18:30; Stop 11/14/18 at 20:14; Status DC Cefepime HCl (Maxipime) 2 gm Q12HR IVP Last administered on 11/18/18at 08:34; Start 11/14/18 at 18:27 Azithromycin 250 ml @ 250 mls/hr 1X ONCE IV Last administered on 11/14/18at 22:56; Start 11/14/18 at 18:30; Stop 11/14/18 at 19:29; Status DC Vancomycin HCl (Vanco Per Pharmacy) 1 each PRN DAILY PRN MC SEE COMMENTS Last administered on 11/15/18at 10:17; Start 11/14/18 at 18:30; Stop 11/16/18 at 08:07; Status DC Propofol 50 ml @ 0 mls/hr 1X ONCE IV ; Start 11/14/18 at 18:30; Stop 11/14/18 at 18:31; Status DC Etomidate (Amidate) 20 mg 1X ONCE IV Last administered on 11/14/18at 18:11; Start 11/14/18 at 18:30; Stop 11/14/18 at 18:31; Status DC Rocuronium [place] (Zemuron) 50 mg 1X ONCE IV Last administered on 11/14/18at 18:11; Start 11/14/18 at 18:30; Stop 11/14/18 at 18:31; Status DC Sodium Chloride 1,000 ml @ 1,000 mls/hr 1X ONCE IV Last administered on 9at 18:11; Start 11/14/18 at 18:30; Stop 11/14/18 at 19:29; Status DC Vancomycin HCl 1.75 gm/Sodium Chloride 500 ml @ 250 mls/hr 1X ONCE IV Last administered on 11/14/18at 21:00; Start 11/14/18 at 19:00; Stop 11/14/18 at 20:59; Status DC Midazolam HCl 100 ml @ 5 mls/hr CONT PRN IV SEE I/O RECORD Last administered on 11/15/18at 06:05; Start 11/14/18 at 20:30; Stop 11/16/18 at 12:47; Status DC Sodium Chloride 1,000 ml @ 1,000 mls/hr 1X ONCE IV Last administered on 11/14/18at 21:07; Start 11/14/18 at 21:00; Stop 11/14/18 at 21:59; Status DC Methylprednisolone Sodium Succinate (SOLU-Medrol 125MG VIAL) 125 mg Q12HR IV Last administered on 11/18/18at 08:32; Start 11/15/18 at 09:00 Albuterol/ Ipratropium (Duoneb) 3 ml Q4HRS NEB ; Start 11/15/18 at 00:00; Status Cancel Sodium Chloride 1,000 ml @ 75 mls/hr [id number] IV Last administered on 11/17/18at 15:47; Start 11/14/18 at 22:00 Sodium Chloride 1,000 ml @ 999 mls/hr 1X ONCE IV ; Start 11/14/18 at 20:45; Stop 11/14/18 at 21:45; Status UNV Albuterol/ Ipratropium (Duoneb) 3 ml RTQID NEB ; Start 11/15/18 at 08:00; Stop 11/15/18 at 08:00; Status DC Albuterol Sulfate (Ventolin Neb Soln) 2.5 mg PRN Q4HRS PRN NEB SHORTNESS OF BREATH Last administered on 11/15/18at 20:23; Start 11/14/18 at 20:45 Norepinephrine Bitartrate 250 ml @ 1.875 mls/ hr CONT PRN IV SEE I/O RECORD Last administered on 11/15/18at 02:33; Start 11/14/18 at 22:30; Stop 11/16/18 at 12:47; Status DC Sodium Chloride 1,000 ml @ 999 mls/hr 1X ONCE IV Last administered on 11/14/18at 22:55; Start 11/14/18 at 23:00; Stop 11/15/18 at 00:00; Status DC Albuterol/ Ipratropium (Duoneb) 3 ml Q4HRS NEB Last administered on 11/18/18at 07:46; Start 11/15/18 at 00:00 Vancomycin HCl 1 gm/Sodium Chloride 250 ml @ 250 mls/hr Q12H IV Last administered on 11/15/18 09:53; Start 11/15/18 at 09:00; Stop 11/15/18 at 12:00; Status DC Vancomycin HCl (Vancomycin Trough Level) 1 each 1X ONCE MC ; Start 11/16/18 at 20:30; Stop 11/16/18 at 20:31; Status Cancel Fentanyl Citrate 30 ml @ 0 mls/hr CONT PRN IV SEE PROTOCOL Last administered on 11/16/18at 04:50; Start 11/15/18 at 07:45; Stop 11/16/18 at 12:47; Status DC Sodium Chloride 1,000 ml @ 1,000 mls/hr 1X ONCE IV Last administered on 11/15/18 09:54; Start 11/15/18 at 09:15; Stop 11/15/18 at 10:14; Status DC Famotidine (Pepcid Vial) 20 mg BID IVP Last administered on 11/18/18 08:30; Start 11/15/18 at 10:00 Enoxaparin Sodium (Lovenox Per Pharmacy Prophylaxis Dosing) 1 each DAILY MC Last administered on 11/17/18at 09:00; Start 11/16/18 at 09:00 Enoxaparin Sodium (Lovenox 40mg Syringe) 40 mg Q24H SQ Last administered on 11/18/18 08:44; Start 11/15/18 at 10:00 Vancomycin HCl 1 gm/Sodium Chloride 250 ml @ 250 mls/hr Q18H IV Last administered on 11/16/18 03:01; Start 11/16/18 at 03:00; Stop 11/16/18 at 08:06; Status DC Lorazepam (Ativan Inj) 2 mg PRN Q4HRS PRN IV ANXIETY / AGITATION Last administered on 11/16/18 15:28; Start 11/15/18 at 12:45 Propofol 100 ml @ 0 mls/hr CONT PRN IV SEE PROTOCOL Last administered on 11/16/18 04:48; Start 11/15/18 at 16:15; Stop 11/16/18 at 12:47; Status DC Flumazenil (Romazicon) 0.1 mg 1X ONCE IV Last administered on 11/16/18at 16:46; Start 11/16/18 at 16:45; Stop 11/16/18 at 16:46; Status DC Flumazenil (Romazicon) 0.1 mg 1X ONCE IV Last administered on 11/16/18at 17:49; Start 11/16/18 at 17:45; Stop 11/16/18 at 17:49; Status DC Propofol 100 ml @ As Directed STK-MED ONCE IV ; Start 11/16/18 at 20:46; Stop 11/16/18 at 20:47; Status DC Propofol 100 ml @ 1.145 mls/ hr CONT PRN IV SEE I/O RECORD Last administered on 11/18/18at 06:29; Start 11/17/18 at 02:30 Fentanyl Citrate (Fentanyl 2ml Vial) 50 mcg PRN Q2HR PRN IV PAIN Last administered on 11/17/18at 02:41; Start 11/17/18 at 02:30 Fentanyl Citrate 30 ml @ 0 mls/hr CONT PRN IV SEE PROTOCOL Last administered on 11/18/18at 05:07; Start 11/17/18 at 07:15 Dextrose (Dextrose 50%-Water Syringe) 12.5 gm PRN Q15MIN PRN IV SEE COMMENTS; Start 11/17/18 at 11:30 Propofol (Diprivan) 200 mg STK-MED ONCE IV ; Start 11/16/18 at 12:00; Stop 11/17/18 at 15:00; Status DC Rocuronium [place] (Zemuron) 50 mg STK-MED ONCE .ROUTE ; Start 11/16/18 at 12:00; Stop 11/17/18 at 15:00; Status DC Active Scripts Active Guaifenesin Dm Syrup (Guaifenesin/Dextromethorphan) 5 Ml Syrup 10 Ml PO PRN Q6HRS PRN MDD 1 7 Days Reported Prednisone (Prednisone) 10 Mg Tablet 10 Mg PO DAILY Fluoxetine Hcl 20 Mg Capsule 20 Mg PO DAILY Incruse Ellipta (Umeclidinium [place]) 62.5 Mcg Blst.w.dev 62.5 Mcg IH DAILY Breo Ellipta 100-25 Mcg Inh (Fluticasone/Vilanterol) 1 Each Aer.pow.ba 1 Puff IH DAILY Tudorza Pressair (Aclidinium [place]) 400 Mcg Aer.pow.ba 400 Mcg IH DAILY Vitals/I & O Vital Sign - Last 24 Hours 11/17/18 11/17/18 11/17/18 11/17/18 11:00 11:13 12:00 12:00 Temp 98.6 98.6 Pulse 54 52 Resp 18 18 B/P (MAP) 132/66 (88) 152/73 (99) Pulse Ox 98 99 99 O2 Delivery Ventilator Ventilator Mechanical Ventilator Ventilator 11/17/18 11/17/18 11/17/18 11/17/18 13:00 13:00 14:00 15:00 Pulse 52 72 67 Resp 18 18 18 B/P (MAP) 159/75 (103) 140/70 (93) 122/63 (82) Pulse Ox 97 98 97 97 O2 Delivery Ventilator Ventilator Ventilator Ventilator 11/17/18 11/17/18 11/17/18 11/17/18 15:33 16:00 16:00 17:00 Temp 98.4 98.4 Pulse 57 63 Resp 18 18 B/P (MAP) 111/61 (78) 133/61 (85) Pulse Ox 98 99 97 O2 Delivery Ventilator Mechanical Ventilator Ventilator Ventilator 11/17/18 11/17/18 11/17/18 11/17/18 17:26 17:56 18:00 18:04 Pulse 60 Resp 17 18 18 B/P (MAP) 121/62 (81) Pulse Ox 97 98 98 98 O2 Delivery Ventilator Ventilator Ventilator Ventilator 11/17/18 11/17/18 11/17/18 11/17/18 19:00 20:00 20:00 20:49 Pulse 64 56 Resp 18 18 B/P (MAP) 133/61 (85) 122/57 (78) Pulse Ox 98 98 98 O2 Delivery Ventilator Mechanical Ventilator Ventilator Ventilator O2 Flow Rate 3.0 11/17/18 11/17/18 11/17/18 11/18/18 22:00 23:00 23:21 00:01 Temp 98.2 98.2 Pulse 56 60 Resp 22 18 B/P (MAP) 132/75 (94) 122/57 (78) Pulse Ox 97 98 98 O2 Delivery Ventilator Mechanical Ventilator O2 Flow Rate 3.0 11/18/18 11/18/18 11/18/18 11/18/18 01:00 01:50 02:00 03:00 Pulse 58 60 64 Resp 18 17 18 B/P (MAP) 140/72 (94) 144/71 (95) 148/76 (100) Pulse Ox 98 97 97 O2 Delivery Ventilator 11/18/18 11/18/18 11/18/18 11/18/18 04:00 04:08 04:09 05:00 Temp 98.2 98.2 Pulse 62 54 Resp 18 18 B/P (MAP) 140/74 (96) 145/70 (95) Pulse Ox 97 98 98 O2 Delivery Mechanical Ventilator Ventilator Ventilator O2 Flow Rate 3.0 11/18/18 11/18/18 11/18/18 11/18/18 05:07 06:00 07:40 07:46 Temp 98.2 98.2 Pulse 56 52 Resp 18 18 B/P (MAP) 133/67 (89) 151/73 (99) Pulse Ox 98 97 97 98 O2 Delivery Ventilator Ventilator O2 Flow Rate 3.0 11/18/18 11/18/18 11/18/18 11/18/18 08:00 08:00 09:02 09:09 Temp 98.2 98.1 98.2 98.1 Pulse 52 61 Resp 18 B/P (MAP) 151/73 (99) 117/65 (82) Pulse Ox 98 98 97 O2 Delivery Mechanical Ventilator Ventilator O2 Flow Rate 3.0 Intake and Output 11/17/18 11/17/18 11/18/18 15:00 23:00 07:00 Intake Total 1617 ml 330 ml Output Total 235 ml 218 ml 101 ml Balance -235 ml 1399 ml 229 ml VON ROGERS MD Nov 18, 2018 10:03
--- NOTE | 2018-11-18 15:32 | NUR ---
CONTINUE Q 2HR TURNS AND GOOD ORAL CARE.
[2018-11-18] MEDS: IV NORMAL SALINE 1000ML BAG 1,000 ML IV SCH (16:47)
[2018-11-19] VITALS (22 sets, daily range): BP systolic 99–141; BP diastolic 55–76
[2018-11-19] MEDS: IPRATRPIUM/ALBUTEROL 0.5/2.5MG 3 ML NEBU. NEB SCH ×7 (00:13→23:05)
[2018-11-19] MEDS: PROPOFOL 100 ML IV PRN ×3 (02:52→17:54)
[2018-11-19 05:21] LABS: BASO % 0 % (0-3); EOS % 0 % (0-3); HEMATOCRIT 31.9 % (36.0-47.0); HEMOGLOBIN 10.5 g/dL (12.0-15.5); LYMPH # 0.4 x10^3/uL (1.0-4.8); LYMPH % 5 % (24-48); MEAN CORPUSCULAR HEMOGLOBIN 30 pg (25-35); MEAN CORPUSCULAR HGB CONC 33 g/dL (31-37); MEAN CORPUSCULAR VOLUME 89 fL (79-100); MONO # 0.7 x10^3/uL (0.0-1.1); MONO % 8 % (0-9); NEUT # 8.3 x10^3/uL (1.8-7.7); NEUT % 88 % (31-73); PLATELET COUNT 239 x10^3/uL (140-400); RED BLOOD COUNT 3.57 x10^6/uL (3.50-5.40); RED CELL DISTRIBUTION WIDTH 14.7 % (11.5-14.5); WHITE BLOOD COUNT 9.5 x10^3/uL (4.0-11.0)
[2018-11-19 05:40] LABS: ALBUMIN 2.7 g/dL (3.4-5.0); ALBUMIN/GLOBULIN RATIO 0.9 (1.0-1.7); CALCIUM 8.8 mg/dL (8.5-10.1); CREATININE 0.5 mg/dL (0.6-1.0); GFR 124.2; TOTAL BILIRUBIN 0.2 mg/dL (0.2-1.0); TOTAL PROTEIN 5.6 g/dL (6.4-8.2)
[2018-11-19] MEDS: IV NORMAL SALINE 1000ML BAG 1,000 ML IV SCH ×4 (05:40→21:39)
--- NOTE | 2018-11-19 06:57 | PDOC ---
PULMONARY PROGRESS NOTES Subjective on vent, sedated, prop, fentanyl, small ett secretion, extubated 11/16, developed worsening respiratory acidosis, failed BIPAP , Re- intubated on 11/16 Vitals Vital Signs Date Time Temp Pulse Resp B/P (MAP) Pulse Ox O2 Delivery O2 Flow Rate FiO2 11/19/18 06:16 98 Ventilator 11/19/18 06:00 48 18 123/70 (87) 11/18/18 20:00 98.7 98.7 11/18/18 12:00 3.0 Comments ros as mentioned as above discussed w rn other sys otherwise neg sedated on vent HEENT: Other (nc at perrl nose clear orally intubated neck no lad, no thyromegaly) Lungs: Clear Cardiovascular: S1, S2 Abdomen: Soft, Non-tender, Other (no mass) Neuro Exam: Alert Extremities: No Edema Skin: Warm Labs Laboratory Tests Test 11/17/18 08:00 11/17/18 12:06 11/17/18 18:13 11/18/18 00:13 O2 Saturation 98 % (92-99) Arterial Blood pH 7.43 (7.35-7.45) Arterial Blood pCO2 at Patient Temp 43 mmHg (35-46) Arterial Blood pO2 at Patient Temp 102 mmHg (65-108) Arterial Blood HCO3 28 mmol/L (21-28) Arterial Blood Base Excess 3 mmol/L (-3-3) FiO2 40 Glucose (Fingerstick) 105 mg/dL (70-99) 127 mg/dL (70-99) 147 mg/dL (70-99) Test 11/18/18 03:30 11/18/18 07:50 11/19/18 01:10 11/19/18 04:30 White Blood Count 9.0 x10^3/uL (4.0-11.0) 9.5 x10^3/uL (4.0-11.0) Red Blood Count 3.68 x10^6/uL (3.50-5.40) 3.57 x10^6/uL (3.50-5.40) Hemoglobin 10.8 g/dL (12.0-15.5) 10.5 g/dL (12.0-15.5) Hematocrit 33.2 % (36.0-47.0) 31.9 % (36.0-47.0) Mean Corpuscular Volume 90 fL (79-100) 89 fL (79-100) Mean Corpuscular Hemoglobin 29 pg (25-35) 30 pg (25-35) Mean Corpuscular Hemoglobin Concent 32 g/dL (31-37) 33 g/dL (31-37) Red Cell Distribution Width 15.0 % (11.5-14.5) 14.7 % (11.5-14.5) Platelet Count 253 x10^3/uL (140-400) 239 x10^3/uL (140-400) Neutrophils (%) (Auto) 91 % (31-73) 88 % (31-73) Lymphocytes (%) (Auto) 3 % (24-48) 5 % (24-48) Monocytes (%) (Auto) 6 % (0-9) 8 % (0-9) Eosinophils (%) (Auto) 0 % (0-3) 0 % (0-3) Basophils (%) (Auto) 0 % (0-3) 0 % (0-3) Neutrophils # (Auto) 8.1 x10^3/uL (1.8-7.7) 8.3 x10^3/uL (1.8-7.7) Lymphocytes # (Auto) 0.3 x10^3/uL (1.0-4.8) 0.4 x10^3/uL (1.0-4.8) Monocytes # (Auto) 0.5 x10^3/uL (0.0-1.1) 0.7 x10^3/uL (0.0-1.1) Eosinophils # (Auto) 0.0 x10^3/uL (0.0-0.7) 0.0 x10^3/uL (0.0-0.7) Basophils # (Auto) 0.0 x10^3/uL (0.0-0.2) 0.0 x10^3/uL (0.0-0.2) Sodium Level 141 mmol/L (136-145) 141 mmol/L (136-145) Potassium Level 3.8 mmol/L (3.5-5.1) 4.0 mmol/L (3.5-5.1) Chloride Level 106 mmol/L (98-107) 106 mmol/L (98-107) Carbon Dioxide Level 24 mmol/L (21-32) 27 mmol/L (21-32) Anion Gap 11 (6-14) 8 (6-14) Blood Urea Nitrogen 28 mg/dL (7-20) 30 mg/dL (7-20) Creatinine 0.5 mg/dL (0.6-1.0) 0.5 mg/dL (0.6-1.0) Estimated GFR (Cockcroft-Gault) 124.2 124.2 Glucose Level 143 mg/dL (70-99) 154 mg/dL (70-99) Calcium Level 8.9 mg/dL (8.5-10.1) 8.8 mg/dL (8.5-10.1) Phosphorus Level 2.8 mg/dL (2.6-4.7) Albumin 2.8 g/dL (3.4-5.0) 2.7 g/dL (3.4-5.0) O2 Saturation 97 % (92-99) Arterial Blood pH 7.43 (7.35-7.45) Arterial Blood pCO2 at Patient Temp 41 mmHg (35-46) Arterial Blood pO2 at Patient Temp 94 mmHg (65-108) Arterial Blood HCO3 27 mmol/L (21-28) Arterial Blood Base Excess 2 mmol/L (-3-3) FiO2 40 Glucose (Fingerstick) 146 mg/dL (70-99) BUN/Creatinine Ratio 60 (6-20) Total Bilirubin 0.2 mg/dL (0.2-1.0) Aspartate Amino Transf (AST/SGOT) 20 U/L (15-37) Alanine Aminotransferase (ALT/SGPT) 42 U/L (14-59) Alkaline Phosphatase 32 U/L (46-116) Total Protein 5.6 g/dL (6.4-8.2) Albumin/Globulin Ratio 0.9 (1.0-1.7) Test 11/19/18 06:27 Glucose (Fingerstick) 132 mg/dL (70-99) Laboratory Tests Test 11/18/18 07:50 11/19/18 01:10 11/19/18 04:30 11/19/18 06:27 O2 Saturation 97 % (92-99) Arterial Blood pH 7.43 (7.35-7.45) Arterial Blood pCO2 at Patient Temp 41 mmHg (35-46) Arterial Blood pO2 at Patient Temp 94 mmHg (65-108) Arterial Blood HCO3 27 mmol/L (21-28) Arterial Blood Base Excess 2 mmol/L (-3-3) FiO2 40 Glucose (Fingerstick) 146 mg/dL (70-99) 132 mg/dL (70-99) White Blood Count 9.5 x10^3/uL (4.0-11.0) Red Blood Count 3.57 x10^6/uL (3.50-5.40) Hemoglobin 10.5 g/dL (12.0-15.5) Hematocrit 31.9 % (36.0-47.0) Mean Corpuscular Volume 89 fL (79-100) Mean Corpuscular Hemoglobin 30 pg (25-35) Mean Corpuscular Hemoglobin Concent 33 g/dL (31-37) Red Cell Distribution Width 14.7 % (11.5-14.5) Platelet Count 239 x10^3/uL (140-400) Neutrophils (%) (Auto) 88 % (31-73) Lymphocytes (%) (Auto) 5 % (24-48) Monocytes (%) (Auto) 8 % (0-9) Eosinophils (%) (Auto) 0 % (0-3) Basophils (%) (Auto) 0 % (0-3) Neutrophils # (Auto) 8.3 x10^3/uL (1.8-7.7) Lymphocytes # (Auto) 0.4 x10^3/uL (1.0-4.8) Monocytes # (Auto) 0.7 x10^3/uL (0.0-1.1) Eosinophils # (Auto) 0.0 x10^3/uL (0.0-0.7) Basophils # (Auto) 0.0 x10^3/uL (0.0-0.2) Sodium Level 141 mmol/L (136-145) Potassium Level 4.0 mmol/L (3.5-5.1) Chloride Level 106 mmol/L (98-107) Carbon Dioxide Level 27 mmol/L (21-32) Anion Gap 8 (6-14) Blood Urea Nitrogen 30 mg/dL (7-20) Creatinine 0.5 mg/dL (0.6-1.0) Estimated GFR (Cockcroft-Gault) 124.2 BUN/Creatinine Ratio 60 (6-20) Glucose Level 154 mg/dL (70-99) Calcium Level 8.8 mg/dL (8.5-10.1) Total Bilirubin 0.2 mg/dL (0.2-1.0) Aspartate Amino Transf (AST/SGOT) 20 U/L (15-37) Alanine Aminotransferase (ALT/SGPT) 42 U/L (14-59) Alkaline Phosphatase 32 U/L (46-116) Total Protein 5.6 g/dL (6.4-8.2) Albumin 2.7 g/dL (3.4-5.0) Albumin/Globulin Ratio 0.9 (1.0-1.7) Medications Active Scripts Medications Dose Route/Sig Max Daily Dose Days Date Category Guaifenesin Dm Syrup (Guaifenesin/Dextromethorphan) 5 Ml Syrup 10 Ml PO PRN Q6HRS PRN MDD 1 7 10/03/18 Rx Incruse Ellipta (Umeclidinium [place]) 62.5 Mcg Blst.w.dev 62.5 Mcg IH DAILY 07/11/17 Reported Breo Ellipta 100-25 Mcg Inh (Fluticasone/Vilanterol) 1 Each Aer.pow.ba 1 Puff IH DAILY 07/11/17 Reported Tudorza Pressair (Aclidinium [place]) 400 Mcg Aer.pow.ba 400 Mcg IH DAILY 07/11/17 Reported Comments CXR 11/19, reviewed minimal l atelectasis, ett ok Impression . 1. Akkiq-wl-gnwxzur hypercapnic respiratory failure secondary to acute exacerbation of chronic obstructive pulmonary disease and also shock. Re- intubated 11/16, AC mode 2. Shock, likely a combination of hypovolemic and septic shock. off levo 3. Low-grade fever. Source could be in the lungs, although chest x-ray does not show definite consolidation 4. Suspect underlying severe chronic obstructive pulmonary disease with chronic hypercapnia. 5. Mild azotemia. 6. Jcod-fc-poxtudtj protein-calorie malnutrition. 7. Plan . 1. Continue vent support, setting reviewed. sbt on Tuesday 2. Broad-spectrum antibiotics. 3. Follow cultures. neg so far 4. will change solumedrol to 40 bid 5. off Levophed .keep systolic pressure above 100. 6. Continue DuoNeb. 7. Deep venous thrombosis prophylaxis. 8. Stress ulcer prophylaxis. 9. elevate hob Discussed with RN, discussed with RT. YUMIKO LIM MD Nov 19, 2018 06:57
[2018-11-19 07:30] LABS: BASE EXCESS ABG 4 mmol/L (-3-3); HCO3 ABG 28 mmol/L (21-28); PCO2 ABG 39 mmHg (35-46); PO2 ABG 102 mmHg (65-108); SAT O2 ABG 98 % (92-99)
--- NOTE | 2018-11-19 08:02 | RAD ---
EXAM: CHEST 1 VIEW History: Pneumonia COMPARISON: None available. TECHNIQUE: Single portable radiograph of the chest FINDINGS: The ET tube, feeding tube are unchanged. Mild hyperinflated lungs likely changes of COPD. The lungs are clear bilaterally. IMPRESSION: Unchanged exam. Electronically signed by: Jagdeep Calvin MD (11/19/2018 7:58 AM) [facility]
[2018-11-19 08:50] LABS: FIO2 ABG 40
[2018-11-19] MEDS: methylPREDNISolone SOD SUCC PF 125 MG/2 ML VIAL. IV SCH (08:54)
[2018-11-19] MEDS: FAMOTIDINE 20 MG/2 ML VIAL IVP SCH ×2 (08:54→21:37)
[2018-11-19] MEDS: ENOXAPARIN 40 MG/0.4 ML SYRINGE. SQ SCH (08:55)
[2018-11-19] MEDS: CEFEPIME HCL IV Push 2 GM VIAL. IVP SCH ×2 (08:55→21:37)
--- NOTE | 2018-11-19 09:17 | PDOC ---
Infectious Disease Note Subjective Subjective Orally intubated, FiO2 40% satting 98% Sedated No fevers Tube feedings 50 ml/hr No BM ROS ROS unobtainable Vital Sign Vital Signs Vital Signs Date Time Temp Pulse Resp B/P (MAP) Pulse Ox O2 Delivery O2 Flow Rate FiO2 11/19/18 07:01 98 Ventilator 11/19/18 06:00 48 18 123/70 (87) 11/18/18 20:00 98.7 98.7 11/18/18 12:00 3.0 Physical Exam PHYSICAL EXAM GENERAL: Intubated, sedated, mitts HEENT: Pupils equal, ETT, OGT NECK: Supple. LUNGS: Clear anteriorly HEART: S1, S2. + murmur ABDOMEN: little distended, soft, + BS : Carvalho in place EXTREMITIES: No cyanosis, No edema. DERMATOLOGIC: Warm, dry. No generalized rash. NEUROLOGIC: Sedated PIV Labs Lab Laboratory Tests Test 11/19/18 01:10 11/19/18 04:30 11/19/18 06:27 11/19/18 07:15 Glucose (Fingerstick) 146 mg/dL (70-99) 132 mg/dL (70-99) White Blood Count 9.5 x10^3/uL (4.0-11.0) Red Blood Count 3.57 x10^6/uL (3.50-5.40) Hemoglobin 10.5 g/dL (12.0-15.5) Hematocrit 31.9 % (36.0-47.0) Mean Corpuscular Volume 89 fL (79-100) Mean Corpuscular Hemoglobin 30 pg (25-35) Mean Corpuscular Hemoglobin Concent 33 g/dL (31-37) Red Cell Distribution Width 14.7 % (11.5-14.5) Platelet Count 239 x10^3/uL (140-400) Neutrophils (%) (Auto) 88 % (31-73) Lymphocytes (%) (Auto) 5 % (24-48) Monocytes (%) (Auto) 8 % (0-9) Eosinophils (%) (Auto) 0 % (0-3) Basophils (%) (Auto) 0 % (0-3) Neutrophils # (Auto) 8.3 x10^3/uL (1.8-7.7) Lymphocytes # (Auto) 0.4 x10^3/uL (1.0-4.8) Monocytes # (Auto) 0.7 x10^3/uL (0.0-1.1) Eosinophils # (Auto) 0.0 x10^3/uL (0.0-0.7) Basophils # (Auto) 0.0 x10^3/uL (0.0-0.2) Sodium Level 141 mmol/L (136-145) Potassium Level 4.0 mmol/L (3.5-5.1) Chloride Level 106 mmol/L (98-107) Carbon Dioxide Level 27 mmol/L (21-32) Anion Gap 8 (6-14) Blood Urea Nitrogen 30 mg/dL (7-20) Creatinine 0.5 mg/dL (0.6-1.0) Estimated GFR (Cockcroft-Gault) 124.2 BUN/Creatinine Ratio 60 (6-20) Glucose Level 154 mg/dL (70-99) Calcium Level 8.8 mg/dL (8.5-10.1) Total Bilirubin 0.2 mg/dL (0.2-1.0) Aspartate Amino Transf (AST/SGOT) 20 U/L (15-37) Alanine Aminotransferase (ALT/SGPT) 42 U/L (14-59) Alkaline Phosphatase 32 U/L (46-116) Total Protein 5.6 g/dL (6.4-8.2) Albumin 2.7 g/dL (3.4-5.0) Albumin/Globulin Ratio 0.9 (1.0-1.7) O2 Saturation 98 % (92-99) Arterial Blood pH 7.47 (7.35-7.45) Arterial Blood pCO2 at Patient Temp 39 mmHg (35-46) Arterial Blood pO2 at Patient Temp 102 mmHg (65-108) Arterial Blood HCO3 28 mmol/L (21-28) Arterial Blood Base Excess 4 mmol/L (-3-3) FiO2 40 EXAM: CHEST 1 VIEW FINDINGS: The ET tube, feeding tube are unchanged. Mild hyperinflated lungs likely changes of COPD. The lungs are clear bilaterally. IMPRESSION: Unchanged exam. Micro 11/14/18 Blood Culture - Preliminary, Resulted NO GROWTH AFTER 4 DAYS URINE CULTURE RES 1 Final No growth Objective Assessment Hypotension, questionable sepsis. - off Levophed since 11/16 Acute on chronic respiratory failure. Suspected emphysema. Moderate aortic stenosis. Encephalopathy, likely metabolic, Anxiety. Obstructive sleep apnea. Protein-calorie malnutrition. Anemia. Plan Plan of Care empiric cefepime, (11/14). Steroids Cultures neg to date Supportive care. D/w nursing Critical Steroids being decreased Wean abx soon D/w nursing Attending Co-Sign Attending Co-Sign The patient was seen and interviewed as well as examined at the bedside. The chart was reviewed. The case was discussed. Agree with the plan of care. LASHELL HWANG APRN Nov 19, 2018 09:17 GENARO PEPPER MD Nov 19, 2018 12:33
--- NOTE | 2018-11-19 10:29 | PDOC ---
PROGRESS NOTES Chief Complaint Chief Complaint 63 old female who is an ex-smoker, admitted again for COPD exacerbation, needing intubation History of Present Illness History of Present Illness Assessment/Plan Assessment/Plan acute hypercarbic respiratory failure, critical pH and PCO2 levels metabolic encephalopathy acute hypoxia COPD with acute bronchitis exacerbation of chronic obstructive pulmonary disease shock. likely a combination of hypovolemic and septic shock. RECENT ECHO 09/24 Transmitral Doppler flow pattern is Grade I-abnormal relaxation pattern. Moderate aortic stenosis. Trace mitral regurgitation. Trace tricuspid regurgitation. The PA pressure was estimated at 36 mmHg. Small bilateral lung nodules. follow-up noncontrast chest CT SOON per Fleischner guidelines. MODERATE PROTEIN-CALORIC MALNUTRITION ICU, pulm FOLLOWING ID CONSULT CARDIOLOGY CONSULT/// RE SHOCK, AORTIC STENOSIS Deep venous thrombosis prophylaxis. Stress ulcer prophylaxis. d/c vanc Wean Levophed to keep systolic pressure above 100. Tube feedings 50 ml/hr empiric cefepime, (11/14). Steroids iv 11/17 worsening respiratory acidosis, failed BIPAP , Re-intubated, AC mode 11/18 BLOOD CULT NEG TO DATE present assist control mode. sbt on tuesday 33 min CC TIME Vitals Vitals Vital Signs Date Time Temp Pulse Resp B/P (MAP) Pulse Ox O2 Delivery O2 Flow Rate FiO2 11/19/18 10:00 53 18 132/65 (87) 98 Ventilator 11/19/18 08:00 98.2 98.2 11/18/18 12:00 3.0 Physical Exam Physical Exam GENERAL: Intubated, sedated, mitts HEENT: Pupils equal, ETT, OGT NECK: Supple. LUNGS: Clear anteriorly HEART: S1, S2. + murmur ABDOMEN: little distended, soft, + BS : Carvalho in place EXTREMITIES: No cyanosis, No edema. DERMATOLOGIC: Warm, dry. No generalized rash. NEUROLOGIC: Sedated PIV General: No acute distress, Other (sedated on vent) Heart: Regular rate (SR no ectopies), Other (3/6 systolic murmur to AKIN border) Lungs: Clear Abdomen: Soft, No tenderness Extremities: No cyanosis Skin: No breakdown, No significant lesion Labs LABS PATIENT: BENITO MARQUEZ ACCT: [id number] LOC: 1 [facility] U: [id number] AGE/SX: 63/F ROOM: 114 RE11/14/[address]: JOSE RUBY MD : [id number] BED: 1 DIS: STATUS: ADM IN TLOC: SPEC #: [id number] NEGRO: 11/14/18 STATUS: RES REQ #: [id number] RECD: 11/14/[address]: JACOB VAZQUEZ DO SOURCE: BLOOD ENTR: 11/14/[address]: UNKNOWN PCP NAME [facility]: ORDERED: BCULT Procedure Result BLOOD CULTURE Preliminary NO GROWTH AFTER 4 DAYS Laboratory Tests Test 11/19/18 01:10 11/19/18 04:30 11/19/18 06:27 11/19/18 07:15 Glucose (Fingerstick) 146 mg/dL (70-99) 132 mg/dL (70-99) White Blood Count 9.5 x10^3/uL (4.0-11.0) Red Blood Count 3.57 x10^6/uL (3.50-5.40) Hemoglobin 10.5 g/dL (12.0-15.5) Hematocrit 31.9 % (36.0-47.0) Mean Corpuscular Volume 89 fL (79-100) Mean Corpuscular Hemoglobin 30 pg (25-35) Mean Corpuscular Hemoglobin Concent 33 g/dL (31-37) Red Cell Distribution Width 14.7 % (11.5-14.5) Platelet Count 239 x10^3/uL (140-400) Neutrophils (%) (Auto) 88 % (31-73) Lymphocytes (%) (Auto) 5 % (24-48) Monocytes (%) (Auto) 8 % (0-9) Eosinophils (%) (Auto) 0 % (0-3) Basophils (%) (Auto) 0 % (0-3) Neutrophils # (Auto) 8.3 x10^3/uL (1.8-7.7) Lymphocytes # (Auto) 0.4 x10^3/uL (1.0-4.8) Monocytes # (Auto) 0.7 x10^3/uL (0.0-1.1) Eosinophils # (Auto) 0.0 x10^3/uL (0.0-0.7) Basophils # (Auto) 0.0 x10^3/uL (0.0-0.2) Sodium Level 141 mmol/L (136-145) Potassium Level 4.0 mmol/L (3.5-5.1) Chloride Level 106 mmol/L (98-107) Carbon Dioxide Level 27 mmol/L (21-32) Anion Gap 8 (6-14) Blood Urea Nitrogen 30 mg/dL (7-20) Creatinine 0.5 mg/dL (0.6-1.0) Estimated GFR (Cockcroft-Gault) 124.2 BUN/Creatinine Ratio 60 (6-20) Glucose Level 154 mg/dL (70-99) Calcium Level 8.8 mg/dL (8.5-10.1) Total Bilirubin 0.2 mg/dL (0.2-1.0) Aspartate Amino Transf (AST/SGOT) 20 U/L (15-37) Alanine Aminotransferase (ALT/SGPT) 42 U/L (14-59) Alkaline Phosphatase 32 U/L (46-116) Total Protein 5.6 g/dL (6.4-8.2) Albumin 2.7 g/dL (3.4-5.0) Albumin/Globulin Ratio 0.9 (1.0-1.7) O2 Saturation 98 % (92-99) Arterial Blood pH 7.47 (7.35-7.45) Arterial Blood pCO2 at Patient Temp 39 mmHg (35-46) Arterial Blood pO2 at Patient Temp 102 mmHg (65-108) Arterial Blood HCO3 28 mmol/L (21-28) Arterial Blood Base Excess 4 mmol/L (-3-3) FiO2 40 Assessment and Plan Assessmemt and Plan Problems Medical Problems: (1) Acute hypercapnic respiratory failure Status: Acute Comment Review of Relevant I have reviewed the following items heaven (where applicable) has been applied. Labs Laboratory Tests Test 11/17/18 12:06 11/17/18 18:13 11/18/18 00:13 11/18/18 03:30 Glucose (Fingerstick) 105 mg/dL (70-99) 127 mg/dL (70-99) 147 mg/dL (70-99) White Blood Count 9.0 x10^3/uL (4.0-11.0) Red Blood Count 3.68 x10^6/uL (3.50-5.40) Hemoglobin 10.8 g/dL (12.0-15.5) Hematocrit 33.2 % (36.0-47.0) Mean Corpuscular Volume 90 fL (79-100) Mean Corpuscular Hemoglobin 29 pg (25-35) Mean Corpuscular Hemoglobin Concent 32 g/dL (31-37) Red Cell Distribution Width 15.0 % (11.5-14.5) Platelet Count 253 x10^3/uL (140-400) Neutrophils (%) (Auto) 91 % (31-73) Lymphocytes (%) (Auto) 3 % (24-48) Monocytes (%) (Auto) 6 % (0-9) Eosinophils (%) (Auto) 0 % (0-3) Basophils (%) (Auto) 0 % (0-3) Neutrophils # (Auto) 8.1 x10^3/uL (1.8-7.7) Lymphocytes # (Auto) 0.3 x10^3/uL (1.0-4.8) Monocytes # (Auto) 0.5 x10^3/uL (0.0-1.1) Eosinophils # (Auto) 0.0 x10^3/uL (0.0-0.7) Basophils # (Auto) 0.0 x10^3/uL (0.0-0.2) Sodium Level 141 mmol/L (136-145) Potassium Level 3.8 mmol/L (3.5-5.1) Chloride Level 106 mmol/L (98-107) Carbon Dioxide Level 24 mmol/L (21-32) Anion Gap 11 (6-14) Blood Urea Nitrogen 28 mg/dL (7-20) Creatinine 0.5 mg/dL (0.6-1.0) Estimated GFR (Cockcroft-Gault) 124.2 Glucose Level 143 mg/dL (70-99) Calcium Level 8.9 mg/dL (8.5-10.1) Phosphorus Level 2.8 mg/dL (2.6-4.7) Albumin 2.8 g/dL (3.4-5.0) Test 11/18/18 07:50 11/19/18 01:10 11/19/18 04:30 11/19/18 06:27 O2 Saturation 97 % (92-99) Arterial Blood pH 7.43 (7.35-7.45) Arterial Blood pCO2 at Patient Temp 41 mmHg (35-46) Arterial Blood pO2 at Patient Temp 94 mmHg (65-108) Arterial Blood HCO3 27 mmol/L (21-28) Arterial Blood Base Excess 2 mmol/L (-3-3) FiO2 40 Glucose (Fingerstick) 146 mg/dL (70-99) 132 mg/dL (70-99) White Blood Count 9.5 x10^3/uL (4.0-11.0) Red Blood Count 3.57 x10^6/uL (3.50-5.40) Hemoglobin 10.5 g/dL (12.0-15.5) Hematocrit 31.9 % (36.0-47.0) Mean Corpuscular Volume 89 fL (79-100) Mean Corpuscular Hemoglobin 30 pg (25-35) Mean Corpuscular Hemoglobin Concent 33 g/dL (31-37) Red Cell Distribution Width 14.7 % (11.5-14.5) Platelet Count 239 x10^3/uL (140-400) Neutrophils (%) (Auto) 88 % (31-73) Lymphocytes (%) (Auto) 5 % (24-48) Monocytes (%) (Auto) 8 % (0-9) Eosinophils (%) (Auto) 0 % (0-3) Basophils (%) (Auto) 0 % (0-3) Neutrophils # (Auto) 8.3 x10^3/uL (1.8-7.7) Lymphocytes # (Auto) 0.4 x10^3/uL (1.0-4.8) Monocytes # (Auto) 0.7 x10^3/uL (0.0-1.1) Eosinophils # (Auto) 0.0 x10^3/uL (0.0-0.7) Basophils # (Auto) 0.0 x10^3/uL (0.0-0.2) Sodium Level 141 mmol/L (136-145) Potassium Level 4.0 mmol/L (3.5-5.1) Chloride Level 106 mmol/L (98-107) Carbon Dioxide Level 27 mmol/L (21-32) Anion Gap 8 (6-14) Blood Urea Nitrogen 30 mg/dL (7-20) Creatinine 0.5 mg/dL (0.6-1.0) Estimated GFR (Cockcroft-Gault) 124.2 BUN/Creatinine Ratio 60 (6-20) Glucose Level 154 mg/dL (70-99) Calcium Level 8.8 mg/dL (8.5-10.1) Total Bilirubin 0.2 mg/dL (0.2-1.0) Aspartate Amino Transf (AST/SGOT) 20 U/L (15-37) Alanine Aminotransferase (ALT/SGPT) 42 U/L (14-59) Alkaline Phosphatase 32 U/L (46-116) Total Protein 5.6 g/dL (6.4-8.2) Albumin 2.7 g/dL (3.4-5.0) Albumin/Globulin Ratio 0.9 (1.0-1.7) Test 11/19/18 07:15 O2 Saturation 98 % (92-99) Arterial Blood pH 7.47 (7.35-7.45) Arterial Blood pCO2 at Patient Temp 39 mmHg (35-46) Arterial Blood pO2 at Patient Temp 102 mmHg (65-108) Arterial Blood HCO3 28 mmol/L (21-28) Arterial Blood Base Excess 4 mmol/L (-3-3) FiO2 40 Laboratory Tests Test 11/19/18 01:10 11/19/18 04:30 11/19/18 06:27 11/19/18 07:15 Glucose (Fingerstick) 146 mg/dL (70-99) 132 mg/dL (70-99) White Blood Count 9.5 x10^3/uL (4.0-11.0) Red Blood Count 3.57 x10^6/uL (3.50-5.40) Hemoglobin 10.5 g/dL (12.0-15.5) Hematocrit 31.9 % (36.0-47.0) Mean Corpuscular Volume 89 fL (79-100) Mean Corpuscular Hemoglobin 30 pg (25-35) Mean Corpuscular Hemoglobin Concent 33 g/dL (31-37) Red Cell Distribution Width 14.7 % (11.5-14.5) Platelet Count 239 x10^3/uL (140-400) Neutrophils (%) (Auto) 88 % (31-73) Lymphocytes (%) (Auto) 5 % (24-48) Monocytes (%) (Auto) 8 % (0-9) Eosinophils (%) (Auto) 0 % (0-3) Basophils (%) (Auto) 0 % (0-3) Neutrophils # (Auto) 8.3 x10^3/uL (1.8-7.7) Lymphocytes # (Auto) 0.4 x10^3/uL (1.0-4.8) Monocytes # (Auto) 0.7 x10^3/uL (0.0-1.1) Eosinophils # (Auto) 0.0 x10^3/uL (0.0-0.7) Basophils # (Auto) 0.0 x10^3/uL (0.0-0.2) Sodium Level 141 mmol/L (136-145) Potassium Level 4.0 mmol/L (3.5-5.1) Chloride Level 106 mmol/L (98-107) Carbon Dioxide Level 27 mmol/L (21-32) Anion Gap 8 (6-14) Blood Urea Nitrogen 30 mg/dL (7-20) Creatinine 0.5 mg/dL (0.6-1.0) Estimated GFR (Cockcroft-Gault) 124.2 BUN/Creatinine Ratio 60 (6-20) Glucose Level 154 mg/dL (70-99) Calcium Level 8.8 mg/dL (8.5-10.1) Total Bilirubin 0.2 mg/dL (0.2-1.0) Aspartate Amino Transf (AST/SGOT) 20 U/L (15-37) Alanine Aminotransferase (ALT/SGPT) 42 U/L (14-59) Alkaline Phosphatase 32 U/L (46-116) Total Protein 5.6 g/dL (6.4-8.2) Albumin 2.7 g/dL (3.4-5.0) Albumin/Globulin Ratio 0.9 (1.0-1.7) O2 Saturation 98 % (92-99) Arterial Blood pH 7.47 (7.35-7.45) Arterial Blood pCO2 at Patient Temp 39 mmHg (35-46) Arterial Blood pO2 at Patient Temp 102 mmHg (65-108) Arterial Blood HCO3 28 mmol/L (21-28) Arterial Blood Base Excess 4 mmol/L (-3-3) FiO2 40 Microbiology 11/14/18 Blood Culture - Preliminary, Resulted NO GROWTH AFTER 4 DAYS 11/14/18 Urine Culture - Final, Complete 11/14/18 Urine Culture Result 1 (KRISTA) - Final, Complete Medications Current Medications Methylprednisolone Sodium Succinate (SOLU-Medrol 125MG VIAL) 125 mg 1X ONCE IV Last administered on 11/14/18at 17:14; Start 11/14/18 at 16:45; Stop 11/14/18 at 16:46; Status DC Albuterol/ Ipratropium (Duoneb) 3 ml 1X ONCE NEB Last administered on 11/14/18at 17:04; Start 11/14/18 at 16:45; Stop 11/14/18 at 16:46; Status DC Ondansetron HCl (Zofran) 4 mg 1X ONCE IV Last administered on 11/14/18at 17:13; Start 11/14/18 at 17:00; Stop 11/14/18 at 17:01; Status DC Propofol 0 ml @ As Directed STK-MED ONCE IV ; Start 11/14/18 at 18:09; Stop 11/14 at 18:10; Status DC Etomidate (Amidate) 20 mg STK-MED ONCE IV ; Start 11/14/18 at 18:17; Stop 11/14/18 at 18:18; Status DC Rocuronium Phoenix (Zemuron) 50 mg STK-MED ONCE .ROUTE ; Start 11/14/18 at 18:17; Stop 11/14/18 at 18:18; Status DC Propofol 100 ml @ 0 mls/hr CONT PRN IV SEE PROTOCOL Last administered on 11/14/18at 18:00; Start 11/14/18 at 18:30; Stop 11/15/18 at 07:38; Status DC Chlorhexidine Gluconate (Peridex) 15 ml BID MM ; Start 11/14/18 at 21:00; Stop 11/15/18 at 16:12; Status DC Midazolam HCl 100 ml @ 0 mls/hr CONT PRN IV SEE PROTOCOL; Start 11/14/18 at 18:30; Stop 11/14/18 at 20:14; Status DC Cefepime HCl (Maxipime) 2 gm Q12HR IVP Last administered on 11/19/18at 08:55; Start 11/14/18 at 18:27 Azithromycin 250 ml @ 250 mls/hr 1X ONCE IV Last administered on 11/14/18at 22:56; Start 11/14/18 at 18:30; Stop 11/14/18 at 19:29; Status DC Vancomycin HCl (Vanco Per Pharmacy) 1 each PRN DAILY PRN MC SEE COMMENTS Last administered on 11/15/18at 10:17; Start 11/14/18 at 18:30; Stop 11/16/18 at 08:07; Status DC Propofol 50 ml @ 0 mls/hr 1X ONCE IV ; Start 11/14/18 at 18:30; Stop 11/14/18 at 18:31; Status DC Etomidate (Amidate) 20 mg 1X ONCE IV Last administered on 11/14/18at 18:11; Start 11/14/18 at 18:30; Stop 11/14/18 at 18:31; Status DC Rocuronium Phoenix (Zemuron) 50 mg 1X ONCE IV Last administered on 11/14/18at 18:11; Start 11/14/18 at 18:30; Stop 11/14/18 at 18:31; Status DC Sodium Chloride 1,000 ml @ 1,000 mls/hr 1X ONCE IV Last administered on 11/14/18at 18:11; Start 11/14/18 at 18:30; Stop 11/14/18 at 19:29; Status DC Vancomycin HCl 1.75 gm/Sodium Chloride 500 ml @ 250 mls/hr 1X ONCE IV Last administered on 11/14/18at 21:00; Start 11/14/18 at 19:00; Stop 11/14/18 at 20:59; Status DC Midazolam HCl 100 ml @ 5 mls/hr CONT PRN IV SEE I/O RECORD Last administered on 11/15/18at 06:05; Start 11/14/18 at 20:30; Stop 11/16/18 at 12:47; Status DC Sodium Chloride 1,000 ml @ 1,000 mls/hr 1X ONCE IV Last administered on 11/14/18at 21:07; Start 11/14/18 at 21:00; Stop 11/14/18 at 21:59; Status DC Methylprednisolone Sodium Succinate (SOLU-Medrol 125MG VIAL) 125 mg Q12HR IV Last administered on 11/19/18at 08:54; Start 11/15/18 at 09:00; Stop 11/19/18 at 10:15; Status DC Albuterol/ Ipratropium (Duoneb) 3 ml Q4HRS NEB ; Start 11/15/18 at 00:00; Status Cancel Sodium Chloride 1,000 ml @ 75 mls/hr [id number] IV Last administered on 11/19/18at 05:40; Start 11/14/18 at 22:00 Sodium Chloride 1,000 ml @ 999 mls/hr 1X ONCE IV ; Start 11/14/18 at 20:45; Stop 11/14/18 at 21:45; Status UNV Albuterol/ Ipratropium (Duoneb) 3 ml RTQID NEB ; Start 11/15/18 at 08:00; Stop 11/15/18 at 08:00; Status DC Albuterol Sulfate (Ventolin Neb Soln) 2.5 mg PRN Q4HRS PRN NEB SHORTNESS OF BREATH Last administered on 11/15/18at 20:23; Start 11/14/18 at 20:45 Norepinephrine Bitartrate 250 ml @ 1.875 mls/ hr CONT PRN IV SEE I/O RECORD Last administered on 11/15/18at 02:33; Start 11/14/18 at 22:30; Stop 11/16/18 at 12:47; Status DC Sodium Chloride 1,000 ml @ 999 mls/hr 1X ONCE IV Last administered on 11/14/18at 22:55; Start 11/14/18 at 23:00; Stop 11/15/18 at 00:00; Status DC Albuterol/ Ipratropium (Duoneb) 3 ml Q4HRS NEB Last administered on 11/19/18at 07:01; Start 11/15/18 at 00:00 Vancomycin HCl 1 gm/Sodium Chloride 250 ml @ 250 mls/hr Q12H IV Last administered on 11/15/18at 09:53; Start 11/15/18 at 09:00; Stop 11/15/18 at 12:00; Status DC Vancomycin HCl (Vancomycin Trough Level) 1 each 1X ONCE MC ; Start 11/16/18 at 20:30; Stop 11/16/18 at 20:31; Status Cancel Fentanyl Citrate 30 ml @ 0 mls/hr CONT PRN IV SEE PROTOCOL Last administered on 11/16/18at 04:50; Start 11/15/18 at 07:45; Stop 11/16/18 at 12:47; Status DC Sodium Chloride 1,000 ml @ 1,000 mls/hr 1X ONCE IV Last administered on 11/15/18at 09:54; Start 11/15/18 at 09:15; Stop 11/15/18 at 10:14; Status DC Famotidine (Pepcid Vial) 20 mg BID IVP Last administered on 11/19/18 08:54; Start 11/15/18 at 10:00 Enoxaparin Sodium (Lovenox Per Pharmacy Prophylaxis Dosing) 1 each DAILY MC Last administered on 11/17/18 09:00; Start 11/16/18 at 09:00 Enoxaparin Sodium (Lovenox 40mg Syringe) 40 mg Q24H SQ Last administered on 11/19/18 08:55; Start 11/15/18 at 10:00 Vancomycin HCl 1 gm/Sodium Chloride 250 ml @ 250 mls/hr Q18H IV Last administered on 11/16/18 03:01; Start 11/16/18 at 03:00; Stop 11/16/18 at 08:06; Status DC Lorazepam (Ativan Inj) 2 mg PRN Q4HRS PRN IV ANXIETY / AGITATION Last administered on 11/16/18at 15:28; Start 11/15/18 at 12:45 Propofol 100 ml @ 0 mls/hr CONT PRN IV SEE PROTOCOL Last administered on 11/16/18at 04:48; Start 11/15/18 at 16:15; Stop 11/16/18 at 12:47; Status DC Flumazenil (Romazicon) 0.1 mg 1X ONCE IV Last administered on 11/16/18at 16:46; Start 11/16/18 at 16:45; Stop 11/16/18 at 16:46; Status DC Flumazenil (Romazicon) 0.1 mg 1X ONCE IV Last administered on 11/16/18at 17:49; Start 11/16/18 at 17:45; Stop 11/16/18 at 17:49; Status DC Propofol 100 ml @ As Directed STK-MED ONCE IV ; Start 11/16/18 at 20:46; Stop 11/16/18 at 20:47; Status DC Propofol 100 ml @ 1.145 mls/ hr CONT PRN IV SEE I/O RECORD Last administered on 11/19/18at 09:52; Start 11/17/18 at 02:30 Fentanyl Citrate (Fentanyl 2ml Vial) 50 mcg PRN Q2HR PRN IV PAIN Last administered on 7/12/19at 02:41; Start 11/17/18 at 02:30 Fentanyl Citrate 30 ml @ 0 mls/hr CONT PRN IV SEE PROTOCOL Last administered on 11/19/18at 04:33; Start 11/17/18 at 07:15 Dextrose (Dextrose 50%-Water Syringe) 12.5 gm PRN Q15MIN PRN IV SEE COMMENTS; Start 11/17/18 at 11:30 Propofol (Diprivan) 200 mg STK-MED ONCE IV ; Start 11/16/18 at 12:00; Stop 11/17/18 at 15:00; Status DC Rocuronium Phoenix (Zemuron) 50 mg STK-MED ONCE .ROUTE ; Start 11/16/18 at 12:00; Stop 11/17/18 at 15:00; Status DC Methylprednisolone Sodium Succinate (SOLU-Medrol 40MG VIAL) 40 mg Q12HR IV ; Start 11/19/18 at 21:00 Active Scripts Active Guaifenesin Dm Syrup (Guaifenesin/Dextromethorphan) 5 Ml Syrup 10 Ml PO PRN Q6HRS PRN MDD 1 7 Days Reported Prednisone (Prednisone) 10 Mg Tablet 10 Mg PO DAILY Fluoxetine Hcl 20 Mg Capsule 20 Mg PO DAILY Incruse Ellipta (Umeclidinium Phoenix) 62.5 Mcg Blst.w.dev 62.5 Mcg IH DAILY Breo Ellipta 100-25 Mcg Inh (Fluticasone/Vilanterol) 1 Each Aer.pow.ba 1 Puff IH DAILY Tudorza Pressair (Aclidinium Phoenix) 400 Mcg Aer.pow.ba 400 Mcg IH DAILY Vitals/I & O Vital Sign - Last 24 Hours 11/18/18 11/18/18 11/18/18 11/18/18 11:00 12:00 12:04 12:31 Temp 98.1 98.1 98.1 98.1 Pulse 59 59 B/P (MAP) 132/70 (90) 132/70 (90) Pulse Ox 97 97 97 O2 Delivery Ventilator Ventilator Mechanical Ventilator O2 Flow Rate 3.0 11/18/18 11/18/18 11/18/18 11/18/18 13:01 13:06 14:03 15:00 Temp 98.1 98.1 98.1 98.1 98.1 98.1 Pulse 67 67 67 Resp 18 18 18 B/P (MAP) 123/65 (84) 116/64 (81) 119/64 (82) Pulse Ox 96 96 96 96 O2 Delivery Ventilator Ventilator Ventilator Ventilator 11/18/18 11/18/18 11/18/18 11/18/18 15:47 16:04 16:09 16:43 Temp 98.1 98.1 Pulse 67 Resp 18 18 B/P (MAP) 104/57 (73) Pulse Ox 97 97 97 O2 Delivery Ventilator Mechanical Ventilator Ventilator Ventilator 11/18/18 11/18/18 11/18/18 11/18/18 17:05 17:54 18:12 19:00 Temp 98.1 98.1 98.1 98.1 Pulse 67 67 70 Resp 18 18 17 B/P (MAP) 118/66 (83) 117/63 (81) 101/56 (71) Pulse Ox 97 97 97 96 O2 Delivery Ventilator Ventilator Ventilator Ventilator 11/18/18 11/18/18 11/18/18 11/18/18 20:00 20:00 20:45 21:00 Temp 98.7 98.7 Pulse 58 52 Resp 18 18 B/P (MAP) 109/60 (76) 107/60 (76) Pulse Ox 97 98 98 O2 Delivery Mechanical Ventilator Ventilator Ventilator Ventilator 11/18/18 11/18/18 11/19/18 11/19/18 22:00 23:00 00:00 00:00 Pulse 56 50 50 Resp 17 18 18 B/P (MAP) 115/65 (82) 134/73 (93) 135/71 (92) Pulse Ox 97 97 97 O2 Delivery Ventilator Ventilator Mechanical Ventilator Ventilator 11/19/18 11/19/18 11/19/18 11/19/18 00:13 01:00 02:00 02:29 Pulse 62 58 Resp 17 17 B/P (MAP) Pulse Ox 97 98 98 97 O2 Delivery Ventilator Ventilator Ventilator Ventilator 11/19/18 11/19/18 11/19/18 11/19/18 03:00 04:00 04:00 04:20 Pulse 54 48 Resp 17 18 B/P (MAP) 104/66 (79) 107/59 (75) Pulse Ox 98 99 97 O2 Delivery Ventilator Mechanical Ventilator Ventilator Ventilator 7/14/19 7/14/19 7/14/19 7/14/19 04:33 05:00 05:05 06:00 Pulse 52 48 Resp 18 18 18 B/P (MAP) 113/63 (80) 123/70 (87) Pulse Ox 97 99 97 98 O2 Delivery Ventilator Ventilator Ventilator Ventilator 11/19/18 11/19/18 11/19/18 11/19/18 06:16 07:00 07:01 08:00 Temp 98.2 98.2 Pulse 46 50 Resp 18 18 B/P (MAP) 119/71 (87) 118/68 (85) Pulse Ox 98 99 98 98 O2 Delivery Ventilator Ventilator Ventilator Ventilator 11/19/18 11/19/18 11/19/18 08:00 09:00 10:00 Pulse 50 53 Resp 18 18 B/P (MAP) 129/74 (92) 132/65 (87) Pulse Ox 98 98 O2 Delivery Mechanical Ventilator Ventilator Ventilator Intake and Output 11/18/18 11/18/18 11/19/18 14:59 22:59 06:59 Intake Total 200 ml 350 ml 2481 ml Output Total 250 ml 360 ml 255 ml Balance -50 ml -10 ml 2226 ml VON ROGERS MD Nov 19, 2018 10:29
[2018-11-19] MEDS: methylPREDNISolone SOD SUCC PF 40 MG/ML VIAL. IV SCH (21:37)
[2018-11-20] VITALS (24 sets, daily range): BP systolic 80–115; BP diastolic 52–70
[2018-11-20] MEDS: PROPOFOL 100 ML IV PRN ×2 (03:01→08:17)
[2018-11-20] MEDS: IPRATRPIUM/ALBUTEROL 0.5/2.5MG 3 ML NEBU. NEB SCH ×5 (04:07→19:37)
[2018-11-20 07:10] LABS: ALBUMIN 2.7 g/dL (3.4-5.0); CREATININE 0.6 mg/dL (0.6-1.0); GFR 100.6; POTASSIUM 3.6 mmol/L (3.5-5.1); TOTAL BILIRUBIN 0.2 mg/dL (0.2-1.0); TOTAL PROTEIN 5.5 g/dL (6.4-8.2)
[2018-11-20 07:12] LABS: BASO % 0 % (0-3); EOS # 0.1 x10^3/uL (0.0-0.7); EOS % 1 % (0-3); HEMATOCRIT 33.7 % (36.0-47.0); HEMOGLOBIN 10.7 g/dL (12.0-15.5); LYMPH # 1.8 x10^3/uL (1.0-4.8); LYMPH % 16 % (24-48); MEAN CORPUSCULAR HEMOGLOBIN 29 pg (25-35); MEAN CORPUSCULAR HGB CONC 32 g/dL (31-37); MEAN CORPUSCULAR VOLUME 90 fL (79-100); MONO # 1.4 x10^3/uL (0.0-1.1); MONO % 12 % (0-9); NEUT # 7.9 x10^3/uL (1.8-7.7); NEUT % 71 % (31-73); PLATELET COUNT 228 x10^3/uL (140-400); RED BLOOD COUNT 3.75 x10^6/uL (3.50-5.40); RED CELL DISTRIBUTION WIDTH 15.2 % (11.5-14.5); WHITE BLOOD COUNT 11.2 x10^3/uL (4.0-11.0)
--- NOTE | 2018-11-20 07:39 | RAD ---
Indication:On ventilator. TECHNIQUE:Portable AP chest X-ray COMPARISON: 11/19/2018 FINDINGS: ET tube is seen in stable position. NG tube is seen with its tip not visualized and presumably in the stomach. Lungs are hyperinflated and hyperlucent without focal consolidation. No pneumothorax or pleural effusion. Heart is normal in size. Visualized bony thorax is within normal limits. IMPRESSION: COPD changes. Superimposed mild atypical/viral infection not ruled out. Electronically signed by: Yehuda Vaz DO (11/20/2018 7:36 AM) [facility]
[2018-11-20] MEDS: CEFEPIME HCL IV Push 2 GM VIAL. IVP SCH ×2 (08:20→20:52)
[2018-11-20] MEDS: FAMOTIDINE 20 MG/2 ML VIAL IVP SCH ×2 (08:21→20:52)
[2018-11-20] MEDS: methylPREDNISolone SOD SUCC PF 40 MG/ML VIAL. IV SCH ×2 (08:21→20:52)
[2018-11-20] MEDS: ENOXAPARIN 40 MG/0.4 ML SYRINGE. SQ SCH (08:21)
--- NOTE | 2018-11-20 08:56 | PDOC ---
Infectious Disease Note Subjective Subjective Orally intubated alert No fevers Tube feedings 50 ml/hr No BM Vital Sign Vital Signs Vital Signs Date Time Temp Pulse Resp B/P (MAP) Pulse Ox O2 Delivery O2 Flow Rate FiO2 11/20/18 08:00 Mechanical Ventilator 11/20/18 07:09 18 100 11/20/18 06:39 3.0 11/20/18 06:00 52 97/54 (68) 11/20/18 05:00 98.0 98.0 Physical Exam PHYSICAL EXAM GENERAL: Intubated, Alert and responds to simple questions HEENT: Pupils equal, ETT, OGT NECK: Supple. LUNGS: Clear anteriorly HEART: S1, S2. + murmur ABDOMEN: little distended, soft, + BS : Carvalho in place EXTREMITIES: No cyanosis, 1 edema. LUE1 -2 DERMATOLOGIC: Warm, dry. No generalized rash. NEUROLOGIC: alert PIV Labs Lab Laboratory Tests Test 11/20/18 06:25 White Blood Count 11.2 x10^3/uL (4.0-11.0) Red Blood Count 3.75 x10^6/uL (3.50-5.40) Hemoglobin 10.7 g/dL (12.0-15.5) Hematocrit 33.7 % (36.0-47.0) Mean Corpuscular Volume 90 fL (79-100) Mean Corpuscular Hemoglobin 29 pg (25-35) Mean Corpuscular Hemoglobin Concent 32 g/dL (31-37) Red Cell Distribution Width 15.2 % (11.5-14.5) Platelet Count 228 x10^3/uL (140-400) Neutrophils (%) (Auto) 71 % (31-73) Lymphocytes (%) (Auto) 16 % (24-48) Monocytes (%) (Auto) 12 % (0-9) Eosinophils (%) (Auto) 1 % (0-3) Basophils (%) (Auto) 0 % (0-3) Neutrophils # (Auto) 7.9 x10^3/uL (1.8-7.7) Lymphocytes # (Auto) 1.8 x10^3/uL (1.0-4.8) Monocytes # (Auto) 1.4 x10^3/uL (0.0-1.1) Eosinophils # (Auto) 0.1 x10^3/uL (0.0-0.7) Basophils # (Auto) 0.0 x10^3/uL (0.0-0.2) Sodium Level 143 mmol/L (136-145) Potassium Level 3.6 mmol/L (3.5-5.1) Chloride Level 107 mmol/L (98-107) Carbon Dioxide Level 31 mmol/L (21-32) Anion Gap 5 (6-14) Blood Urea Nitrogen 29 mg/dL (7-20) Creatinine 0.6 mg/dL (0.6-1.0) Estimated GFR (Cockcroft-Gault) 100.6 BUN/Creatinine Ratio 48 (6-20) Glucose Level 95 mg/dL (70-99) Calcium Level 9.0 mg/dL (8.5-10.1) Total Bilirubin 0.2 mg/dL (0.2-1.0) Aspartate Amino Transf (AST/SGOT) 27 U/L (15-37) Alanine Aminotransferase (ALT/SGPT) 79 U/L (14-59) Alkaline Phosphatase 29 U/L (46-116) Total Protein 5.5 g/dL (6.4-8.2) Albumin 2.7 g/dL (3.4-5.0) Albumin/Globulin Ratio 1.0 (1.0-1.7) Micro Microbiology 11/14/18 Blood Culture - Final, Complete NO GROWTH AFTER 5 DAYS 11/14/18 Urine Culture - Final, Complete 11/14/18 Urine Culture Result 1 (KRISTA) - Final, Complete Objective Assessment Hypotension, questionable sepsis. - off Levophed since 11/16 leukocytosis - on steroid Acute on chronic respiratory failure. Suspected emphysema. Moderate aortic stenosis. Encephalopathy, likely metabolic, Anxiety. Obstructive sleep apnea. Protein-calorie malnutrition. Anemia. Plan Plan of Care empiric cefepime, (11/14) wean soon Steroids Cultures neg to date Supportive care. D/w nursing GENARO PEPPER MD Nov 20, 2018 08:56
[2018-11-20 09:10] LABS: BASE EXCESS ABG 3 mmol/L (-3-3); HCO3 ABG 28 mmol/L (21-28); PCO2 ABG 44 mmHg (35-46); PO2 ABG 115 mmHg (65-108); SAT O2 ABG 98 % (92-99)
[2018-11-20 09:14] LABS: FIO2 ABG 40
--- NOTE | 2018-11-20 10:01 | PDOC ---
PULMONARY PROGRESS NOTES Subjective on vent, extubated 11/16, developed worsening respiratory acidosis, failed BIPAP , Re- intubated on 11/16 Vitals Vital Signs Date Time Temp Pulse Resp B/P (MAP) Pulse Ox O2 Delivery O2 Flow Rate FiO2 11/20/18 08:40 99 Ventilator 11/20/18 08:00 52 18 86/54 (65) 11/20/18 07:00 97.7 97.7 11/20/18 06:39 3.0 Comments ros as mentioned as above discussed w rn other sys otherwise neg sedated on vent HEENT: Other (nc at perrl nose clear orally intubated neck no lad, no thyromegaly) Lungs: Clear Cardiovascular: S1, S2 Abdomen: Soft, Non-tender, Other (no mass) Neuro Exam: Alert Extremities: No Edema Skin: Warm Labs Laboratory Tests Test 11/19/18 01:10 11/19/18 04:30 11/19/18 06:27 11/19/18 07:15 Glucose (Fingerstick) 146 mg/dL (70-99) 132 mg/dL (70-99) White Blood Count 9.5 x10^3/uL (4.0-11.0) Red Blood Count 3.57 x10^6/uL (3.50-5.40) Hemoglobin 10.5 g/dL (12.0-15.5) Hematocrit 31.9 % (36.0-47.0) Mean Corpuscular Volume 89 fL (79-100) Mean Corpuscular Hemoglobin 30 pg (25-35) Mean Corpuscular Hemoglobin Concent 33 g/dL (31-37) Red Cell Distribution Width 14.7 % (11.5-14.5) Platelet Count 239 x10^3/uL (140-400) Neutrophils (%) (Auto) 88 % (31-73) Lymphocytes (%) (Auto) 5 % (24-48) Monocytes (%) (Auto) 8 % (0-9) Eosinophils (%) (Auto) 0 % (0-3) Basophils (%) (Auto) 0 % (0-3) Neutrophils # (Auto) 8.3 x10^3/uL (1.8-7.7) Lymphocytes # (Auto) 0.4 x10^3/uL (1.0-4.8) Monocytes # (Auto) 0.7 x10^3/uL (0.0-1.1) Eosinophils # (Auto) 0.0 x10^3/uL (0.0-0.7) Basophils # (Auto) 0.0 x10^3/uL (0.0-0.2) Sodium Level 141 mmol/L (136-145) Potassium Level 4.0 mmol/L (3.5-5.1) Chloride Level 106 mmol/L (98-107) Carbon Dioxide Level 27 mmol/L (21-32) Anion Gap 8 (6-14) Blood Urea Nitrogen 30 mg/dL (7-20) Creatinine 0.5 mg/dL (0.6-1.0) Estimated GFR (Cockcroft-Gault) 124.2 BUN/Creatinine Ratio 60 (6-20) Glucose Level 154 mg/dL (70-99) Calcium Level 8.8 mg/dL (8.5-10.1) Total Bilirubin 0.2 mg/dL (0.2-1.0) Aspartate Amino Transf (AST/SGOT) 20 U/L (15-37) Alanine Aminotransferase (ALT/SGPT) 42 U/L (14-59) Alkaline Phosphatase 32 U/L (46-116) Total Protein 5.6 g/dL (6.4-8.2) Albumin 2.7 g/dL (3.4-5.0) Albumin/Globulin Ratio 0.9 (1.0-1.7) O2 Saturation 98 % (92-99) Arterial Blood pH 7.47 (7.35-7.45) Arterial Blood pCO2 at Patient Temp 39 mmHg (35-46) Arterial Blood pO2 at Patient Temp 102 mmHg (65-108) Arterial Blood HCO3 28 mmol/L (21-28) Arterial Blood Base Excess 4 mmol/L (-3-3) FiO2 40 Test 11/20/18 06:25 11/20/18 08:40 White Blood Count 11.2 x10^3/uL (4.0-11.0) Red Blood Count 3.75 x10^6/uL (3.50-5.40) Hemoglobin 10.7 g/dL (12.0-15.5) Hematocrit 33.7 % (36.0-47.0) Mean Corpuscular Volume 90 fL (79-100) Mean Corpuscular Hemoglobin 29 pg (25-35) Mean Corpuscular Hemoglobin Concent 32 g/dL (31-37) Red Cell Distribution Width 15.2 % (11.5-14.5) Platelet Count 228 x10^3/uL (140-400) Neutrophils (%) (Auto) 71 % (31-73) Lymphocytes (%) (Auto) 16 % (24-48) Monocytes (%) (Auto) 12 % (0-9) Eosinophils (%) (Auto) 1 % (0-3) Basophils (%) (Auto) 0 % (0-3) Neutrophils # (Auto) 7.9 x10^3/uL (1.8-7.7) Lymphocytes # (Auto) 1.8 x10^3/uL (1.0-4.8) Monocytes # (Auto) 1.4 x10^3/uL (0.0-1.1) Eosinophils # (Auto) 0.1 x10^3/uL (0.0-0.7) Basophils # (Auto) 0.0 x10^3/uL (0.0-0.2) Sodium Level 143 mmol/L (136-145) Potassium Level 3.6 mmol/L (3.5-5.1) Chloride Level 107 mmol/L (98-107) Carbon Dioxide Level 31 mmol/L (21-32) Anion Gap 5 (6-14) Blood Urea Nitrogen 29 mg/dL (7-20) Creatinine 0.6 mg/dL (0.6-1.0) Estimated GFR (Cockcroft-Gault) 100.6 BUN/Creatinine Ratio 48 (6-20) Glucose Level 95 mg/dL (70-99) Calcium Level 9.0 mg/dL (8.5-10.1) Total Bilirubin 0.2 mg/dL (0.2-1.0) Aspartate Amino Transf (AST/SGOT) 27 U/L (15-37) Alanine Aminotransferase (ALT/SGPT) 79 U/L (14-59) Alkaline Phosphatase 29 U/L (46-116) Total Protein 5.5 g/dL (6.4-8.2) Albumin 2.7 g/dL (3.4-5.0) Albumin/Globulin Ratio 1.0 (1.0-1.7) O2 Saturation 98 % (92-99) Arterial Blood pH 7.42 (7.35-7.45) Arterial Blood pCO2 at Patient Temp 44 mmHg (35-46) Arterial Blood pO2 at Patient Temp 115 mmHg (65-108) Arterial Blood HCO3 28 mmol/L (21-28) Arterial Blood Base Excess 3 mmol/L (-3-3) FiO2 40 Laboratory Tests Test 11/20/18 06:25 11/20/18 08:40 White Blood Count 11.2 x10^3/uL (4.0-11.0) Red Blood Count 3.75 x10^6/uL (3.50-5.40) Hemoglobin 10.7 g/dL (12.0-15.5) Hematocrit 33.7 % (36.0-47.0) Mean Corpuscular Volume 90 fL (79-100) Mean Corpuscular Hemoglobin 29 pg (25-35) Mean Corpuscular Hemoglobin Concent 32 g/dL (31-37) Red Cell Distribution Width 15.2 % (11.5-14.5) Platelet Count 228 x10^3/uL (140-400) Neutrophils (%) (Auto) 71 % (31-73) Lymphocytes (%) (Auto) 16 % (24-48) Monocytes (%) (Auto) 12 % (0-9) Eosinophils (%) (Auto) 1 % (0-3) Basophils (%) (Auto) 0 % (0-3) Neutrophils # (Auto) 7.9 x10^3/uL (1.8-7.7) Lymphocytes # (Auto) 1.8 x10^3/uL (1.0-4.8) Monocytes # (Auto) 1.4 x10^3/uL (0.0-1.1) Eosinophils # (Auto) 0.1 x10^3/uL (0.0-0.7) Basophils # (Auto) 0.0 x10^3/uL (0.0-0.2) Sodium Level 143 mmol/L (136-145) Potassium Level 3.6 mmol/L (3.5-5.1) Chloride Level 107 mmol/L (98-107) Carbon Dioxide Level 31 mmol/L (21-32) Anion Gap 5 (6-14) Blood Urea Nitrogen 29 mg/dL (7-20) Creatinine 0.6 mg/dL (0.6-1.0) Estimated GFR (Cockcroft-Gault) 100.6 BUN/Creatinine Ratio 48 (6-20) Glucose Level 95 mg/dL (70-99) Calcium Level 9.0 mg/dL (8.5-10.1) Total Bilirubin 0.2 mg/dL (0.2-1.0) Aspartate Amino Transf (AST/SGOT) 27 U/L (15-37) Alanine Aminotransferase (ALT/SGPT) 79 U/L (14-59) Alkaline Phosphatase 29 U/L (46-116) Total Protein 5.5 g/dL (6.4-8.2) Albumin 2.7 g/dL (3.4-5.0) Albumin/Globulin Ratio 1.0 (1.0-1.7) O2 Saturation 98 % (92-99) Arterial Blood pH 7.42 (7.35-7.45) Arterial Blood pCO2 at Patient Temp 44 mmHg (35-46) Arterial Blood pO2 at Patient Temp 115 mmHg (65-108) Arterial Blood HCO3 28 mmol/L (21-28) Arterial Blood Base Excess 3 mmol/L (-3-3) FiO2 40 Medications Active Scripts Medications Dose Route/Sig Max Daily Dose Days Date Category Guaifenesin Dm Syrup (Guaifenesin/Dextromethorphan) 5 Ml Syrup 10 Ml PO PRN Q6HRS PRN MDD 1 7 10/03/18 Rx Incruse Ellipta (Umeclidinium [place]) 62.5 Mcg Blst.w.dev 62.5 Mcg IH DAILY 07/11/17 Reported Breo Ellipta 100-25 Mcg Inh (Fluticasone/Vilanterol) 1 Each Aer.pow.ba 1 Puff IH DAILY 07/11/17 Reported Tudorza Pressair (Aclidinium [place]) 400 Mcg Aer.pow.ba 400 Mcg IH DAILY 07/11/17 Reported Comments CXR 11/20, reviewed minimal l atelectasis, ett ok Impression . 1. Qphku-au-ducfahn hypercapnic respiratory failure secondary to acute exacerbation of chronic obstructive pulmonary disease and also shock. Re- intubated 11/16, AC mode 2. Shock, likely a combination of hypovolemic and septic shock. off levo 3. Low-grade fever. Source could be in the lungs, although chest x-ray does not show definite consolidation , no further fever 4. Suspect underlying severe chronic obstructive pulmonary disease with chronic hypercapnia. 5. Mild azotemia. 6. Rwwh-al-ctxugxsz protein-calorie malnutrition. 7. Plan . 1. Continue vent support, setting reviewed. CPAP trial today. D/W DAUGHTER IN DETAIL. SH EAGREES WITH DNI/DNR POST EXTUBATION. SH EUNDERSTANDS THE SEVERITY OF HER COPD. 2. Broad-spectrum antibiotics. 3. Follow cultures. neg so far 4. solumedrol 5. off Levophed .keep systolic pressure above 100. 6. Continue DuoNeb. 7. Deep venous thrombosis prophylaxis. 8. Stress ulcer prophylaxis. 9. elevate hob Discussed with RN, discussed with RT. cct 30 min XENA MCGRAW MD Nov 20, 2018 10:01
[2018-11-20 10:14] LABS: % BANDS 1 % (0-9); % LYMPHS 17 % (24-48); % METAS 1 % (0-0); % MONOS 6 % (0-10); % SEGS 75 % (35-66)
[2018-11-20 10:15] LABS: PLT ESTIMATE ADEQUATE (ADEQUATE)
--- NOTE | 2018-11-20 10:18 | PDOC2 ---
PALLIATIVE CARE Palliative Care Note Palliative Care Consult requested by Dr. Lewis to address goals of therapy and advanced directive. Patient alert. On Vent. Medical Assessment per medical record; 1. Niotf-fe-hdiiwhe hypercapnic respiratory failure secondary to acute exacerbation of chronic obstructive pulmonary disease and also shock. Re- intubated 11/16, AC mode 2. Shock, likely a combination of hypovolemic and septic shock. off levo 3. Low-grade fever. Source could be in the lungs, although chest x-ray does not show definite consolidation , no further fever 4. Suspect underlying severe chronic obstructive pulmonary disease with chronic hypercapnia. 5. Mild azotemia. 6. Gzyl-fk-tthsucbn protein-calorie malnutrition. 7. Tylor Steele spoke with daughter Cora. DNR/DNI. Daughter will be here later today and will have more discussion as needed. JOANN ORNELAS Nov 20, 2018 10:18
--- NOTE | 2018-11-20 10:21 | PDOC ---
PROGRESS NOTES Chief Complaint Chief Complaint 63 old female who is an ex-smoker, admitted for COPD exacerbation, icu/// intubation History of Present Illness History of Present Illness Assessment/Plan Assessment/Plan acute hypercarbic respiratory failure, critical pH and PCO2 levels metabolic encephalopathy acute hypoxia COPD with acute bronchitis exacerbation of chronic obstructive pulmonary disease shock. likely a combination of hypovolemic and septic shock. RECENT ECHO 09/24 Transmitral Doppler flow pattern is Grade I-abnormal relaxation pattern. Moderate aortic stenosis. Trace mitral regurgitation. Trace tricuspid regurgitation. The PA pressure was estimated at 36 mmHg. Small bilateral lung nodules. follow-up noncontrast chest CT SOON per Fleischner guidelines. MODERATE PROTEIN-CALORIC MALNUTRITION COPD changes. Superimposed mild atypical/viral infection not ruled out. cxr 11/20 ICU, ATTEMPT extubation 11/20 DNI/DNR POST EXTUBATION. pulm FOLLOWING ID following CARDIOLOGY CONSULT/// RE SHOCK, AORTIC STENOSIS Deep venous thrombosis prophylaxis. Stress ulcer prophylaxis. d/c vanc Wean Levophed to keep systolic pressure above 100. Tube feedings 50 ml/hr empiric cefepime, (11/14). Steroids iv 11/17 worsening respiratory acidosis, failed BIPAP , Re-intubated, AC mode 11/18 BLOOD CULT NEG TO DATE present assist control mode. 11/20 dnr status post extubation planned 38 min CC TIME Vitals Vitals Vital Signs Date Time Temp Pulse Resp B/P (MAP) Pulse Ox O2 Delivery O2 Flow Rate FiO2 11/20/18 08:40 99 Ventilator 11/20/18 08:00 52 18 86/54 (65) 11/20/18 07:00 97.7 97.7 11/20/18 06:39 3.0 Physical Exam Physical Exam GENERAL: Intubated, Alert and responds to simple questions HEENT: Pupils equal, ETT, OGT NECK: Supple. LUNGS: Clear anteriorly HEART: S1, S2. + murmur ABDOMEN: little distended, soft, + BS : Carvalho in place EXTREMITIES: No cyanosis, 1 edema. LUE1 -2 DERMATOLOGIC: Warm, dry. No generalized rash. NEUROLOGIC: alert PIV General: No acute distress, Other (sedated on vent) Heart: Regular rate (SR no ectopies), Other (3/6 systolic murmur to AKIN border) Lungs: Clear Abdomen: Normal bowel sounds, Soft, No tenderness Extremities: No cyanosis Skin: No breakdown, No significant lesion Labs LABS Indication:On ventilator. TECHNIQUE:Portable AP chest X-ray COMPARISON: 11/19/2018 FINDINGS: ET tube is seen in stable position. NG tube is seen with its tip not visualized and presumably in the stomach. Lungs are hyperinflated and hyperlucent without focal consolidation. No pneumothorax or pleural effusion. Heart is normal in size. Visualized bony thorax is within normal limits. IMPRESSION: COPD changes. Superimposed mild atypical/viral infection not ruled out. Electronically signed by: Yehuda Kathleen DO (11/20/2018 7:36 AM) [facility] DICTATED and SIGNED BY: YEHUDA KATHLEEN DO Laboratory Tests Test 11/20/18 06:25 11/20/18 08:40 White Blood Count 11.2 x10^3/uL (4.0-11.0) Red Blood Count 3.75 x10^6/uL (3.50-5.40) Hemoglobin 10.7 g/dL (12.0-15.5) Hematocrit 33.7 % (36.0-47.0) Mean Corpuscular Volume 90 fL (79-100) Mean Corpuscular Hemoglobin 29 pg (25-35) Mean Corpuscular Hemoglobin Concent 32 g/dL (31-37) Red Cell Distribution Width 15.2 % (11.5-14.5) Platelet Count 228 x10^3/uL (140-400) Neutrophils (%) (Auto) 71 % (31-73) Lymphocytes (%) (Auto) 16 % (24-48) Monocytes (%) (Auto) 12 % (0-9) Eosinophils (%) (Auto) 1 % (0-3) Basophils (%) (Auto) 0 % (0-3) Neutrophils # (Auto) 7.9 x10^3/uL (1.8-7.7) Lymphocytes # (Auto) 1.8 x10^3/uL (1.0-4.8) Monocytes # (Auto) 1.4 x10^3/uL (0.0-1.1) Eosinophils # (Auto) 0.1 x10^3/uL (0.0-0.7) Basophils # (Auto) 0.0 x10^3/uL (0.0-0.2) Segmented Neutrophils % 75 % (35-66) Band Neutrophils % 1 % (0-9) Lymphocytes % 17 % (24-48) Monocytes % 6 % (0-10) Metamyelocytes % 1 % (0-0) Platelet Estimate Adequate (ADEQUATE) Sodium Level 143 mmol/L (136-145) Potassium Level 3.6 mmol/L (3.5-5.1) Chloride Level 107 mmol/L (98-107) Carbon Dioxide Level 31 mmol/L (21-32) Anion Gap 5 (6-14) Blood Urea Nitrogen 29 mg/dL (7-20) Creatinine 0.6 mg/dL (0.6-1.0) Estimated GFR (Cockcroft-Gault) 100.6 BUN/Creatinine Ratio 48 (6-20) Glucose Level 95 mg/dL (70-99) Calcium Level 9.0 mg/dL (8.5-10.1) Total Bilirubin 0.2 mg/dL (0.2-1.0) Aspartate Amino Transf (AST/SGOT) 27 U/L (15-37) Alanine Aminotransferase (ALT/SGPT) 79 U/L (14-59) Alkaline Phosphatase 29 U/L (46-116) Total Protein 5.5 g/dL (6.4-8.2) Albumin 2.7 g/dL (3.4-5.0) Albumin/Globulin Ratio 1.0 (1.0-1.7) O2 Saturation 98 % (92-99) Arterial Blood pH 7.42 (7.35-7.45) Arterial Blood pCO2 at Patient Temp 44 mmHg (35-46) Arterial Blood pO2 at Patient Temp 115 mmHg (65-108) Arterial Blood HCO3 28 mmol/L (21-28) Arterial Blood Base Excess 3 mmol/L (-3-3) FiO2 40 Assessment and Plan Assessmemt and Plan Problems Medical Problems: (1) Acute hypercapnic respiratory failure Status: Acute Comment Review of Relevant I have reviewed the following items heaven (where applicable) has been applied. Labs Laboratory Tests Test 11/19/18 01:10 11/19/18 04:30 11/19/18 06:27 11/19/18 07:15 Glucose (Fingerstick) 146 mg/dL (70-99) 132 mg/dL (70-99) White Blood Count 9.5 x10^3/uL (4.0-11.0) Red Blood Count 3.57 x10^6/uL (3.50-5.40) Hemoglobin 10.5 g/dL (12.0-15.5) Hematocrit 31.9 % (36.0-47.0) Mean Corpuscular Volume 89 fL (79-100) Mean Corpuscular Hemoglobin 30 pg (25-35) Mean Corpuscular Hemoglobin Concent 33 g/dL (31-37) Red Cell Distribution Width 14.7 % (11.5-14.5) Platelet Count 239 x10^3/uL (140-400) Neutrophils (%) (Auto) 88 % (31-73) Lymphocytes (%) (Auto) 5 % (24-48) Monocytes (%) (Auto) 8 % (0-9) Eosinophils (%) (Auto) 0 % (0-3) Basophils (%) (Auto) 0 % (0-3) Neutrophils # (Auto) 8.3 x10^3/uL (1.8-7.7) Lymphocytes # (Auto) 0.4 x10^3/uL (1.0-4.8) Monocytes # (Auto) 0.7 x10^3/uL (0.0-1.1) Eosinophils # (Auto) 0.0 x10^3/uL (0.0-0.7) Basophils # (Auto) 0.0 x10^3/uL (0.0-0.2) Sodium Level 141 mmol/L (136-145) Potassium Level 4.0 mmol/L (3.5-5.1) Chloride Level 106 mmol/L (98-107) Carbon Dioxide Level 27 mmol/L (21-32) Anion Gap 8 (6-14) Blood Urea Nitrogen 30 mg/dL (7-20) Creatinine 0.5 mg/dL (0.6-1.0) Estimated GFR (Cockcroft-Gault) 124.2 BUN/Creatinine Ratio 60 (6-20) Glucose Level 154 mg/dL (70-99) Calcium Level 8.8 mg/dL (8.5-10.1) Total Bilirubin 0.2 mg/dL (0.2-1.0) Aspartate Amino Transf (AST/SGOT) 20 U/L (15-37) Alanine Aminotransferase (ALT/SGPT) 42 U/L (14-59) Alkaline Phosphatase 32 U/L (46-116) Total Protein 5.6 g/dL (6.4-8.2) Albumin 2.7 g/dL (3.4-5.0) Albumin/Globulin Ratio 0.9 (1.0-1.7) O2 Saturation 98 % (92-99) Arterial Blood pH 7.47 (7.35-7.45) Arterial Blood pCO2 at Patient Temp 39 mmHg (35-46) Arterial Blood pO2 at Patient Temp 102 mmHg (65-108) Arterial Blood HCO3 28 mmol/L (21-28) Arterial Blood Base Excess 4 mmol/L (-3-3) FiO2 40 Test 11/20/18 06:25 11/20/18 08:40 White Blood Count 11.2 x10^3/uL (4.0-11.0) Red Blood Count 3.75 x10^6/uL (3.50-5.40) Hemoglobin 10.7 g/dL (12.0-15.5) Hematocrit 33.7 % (36.0-47.0) Mean Corpuscular Volume 90 fL (79-100) Mean Corpuscular Hemoglobin 29 pg (25-35) Mean Corpuscular Hemoglobin Concent 32 g/dL (31-37) Red Cell Distribution Width 15.2 % (11.5-14.5) Platelet Count 228 x10^3/uL (140-400) Neutrophils (%) (Auto) 71 % (31-73) Lymphocytes (%) (Auto) 16 % (24-48) Monocytes (%) (Auto) 12 % (0-9) Eosinophils (%) (Auto) 1 % (0-3) Basophils (%) (Auto) 0 % (0-3) Neutrophils # (Auto) 7.9 x10^3/uL (1.8-7.7) Lymphocytes # (Auto) 1.8 x10^3/uL (1.0-4.8) Monocytes # (Auto) 1.4 x10^3/uL (0.0-1.1) Eosinophils # (Auto) 0.1 x10^3/uL (0.0-0.7) Basophils # (Auto) 0.0 x10^3/uL (0.0-0.2) Segmented Neutrophils % 75 % (35-66) Band Neutrophils % 1 % (0-9) Lymphocytes % 17 % (24-48) Monocytes % 6 % (0-10) Metamyelocytes % 1 % (0-0) Platelet Estimate Adequate (ADEQUATE) Sodium Level 143 mmol/L (136-145) Potassium Level 3.6 mmol/L (3.5-5.1) Chloride Level 107 mmol/L (98-107) Carbon Dioxide Level 31 mmol/L (21-32) Anion Gap 5 (6-14) Blood Urea Nitrogen 29 mg/dL (7-20) Creatinine 0.6 mg/dL (0.6-1.0) Estimated GFR (Cockcroft-Gault) 100.6 BUN/Creatinine Ratio 48 (6-20) Glucose Level 95 mg/dL (70-99) Calcium Level 9.0 mg/dL (8.5-10.1) Total Bilirubin 0.2 mg/dL (0.2-1.0) Aspartate Amino Transf (AST/SGOT) 27 U/L (15-37) Alanine Aminotransferase (ALT/SGPT) 79 U/L (14-59) Alkaline Phosphatase 29 U/L (46-116) Total Protein 5.5 g/dL (6.4-8.2) Albumin 2.7 g/dL (3.4-5.0) Albumin/Globulin Ratio 1.0 (1.0-1.7) O2 Saturation 98 % (92-99) Arterial Blood pH 7.42 (7.35-7.45) Arterial Blood pCO2 at Patient Temp 44 mmHg (35-46) Arterial Blood pO2 at Patient Temp 115 mmHg (65-108) Arterial Blood HCO3 28 mmol/L (21-28) Arterial Blood Base Excess 3 mmol/L (-3-3) FiO2 40 Laboratory Tests Test 11/20/18 06:25 11/20/18 08:40 White Blood Count 11.2 x10^3/uL (4.0-11.0) Red Blood Count 3.75 x10^6/uL (3.50-5.40) Hemoglobin 10.7 g/dL (12.0-15.5) Hematocrit 33.7 % (36.0-47.0) Mean Corpuscular Volume 90 fL (79-100) Mean Corpuscular Hemoglobin 29 pg (25-35) Mean Corpuscular Hemoglobin Concent 32 g/dL (31-37) Red Cell Distribution Width 15.2 % (11.5-14.5) Platelet Count 228 x10^3/uL (140-400) Neutrophils (%) (Auto) 71 % (31-73) Lymphocytes (%) (Auto) 16 % (24-48) Monocytes (%) (Auto) 12 % (0-9) Eosinophils (%) (Auto) 1 % (0-3) Basophils (%) (Auto) 0 % (0-3) Neutrophils # (Auto) 7.9 x10^3/uL (1.8-7.7) Lymphocytes # (Auto) 1.8 x10^3/uL (1.0-4.8) Monocytes # (Auto) 1.4 x10^3/uL (0.0-1.1) Eosinophils # (Auto) 0.1 x10^3/uL (0.0-0.7) Basophils # (Auto) 0.0 x10^3/uL (0.0-0.2) Segmented Neutrophils % 75 % (35-66) Band Neutrophils % 1 % (0-9) Lymphocytes % 17 % (24-48) Monocytes % 6 % (0-10) Metamyelocytes % 1 % (0-0) Platelet Estimate Adequate (ADEQUATE) Sodium Level 143 mmol/L (136-145) Potassium Level 3.6 mmol/L (3.5-5.1) Chloride Level 107 mmol/L (98-107) Carbon Dioxide Level 31 mmol/L (21-32) Anion Gap 5 (6-14) Blood Urea Nitrogen 29 mg/dL (7-20) Creatinine 0.6 mg/dL (0.6-1.0) Estimated GFR (Cockcroft-Gault) 100.6 BUN/Creatinine Ratio 48 (6-20) Glucose Level 95 mg/dL (70-99) Calcium Level 9.0 mg/dL (8.5-10.1) Total Bilirubin 0.2 mg/dL (0.2-1.0) Aspartate Amino Transf (AST/SGOT) 27 U/L (15-37) Alanine Aminotransferase (ALT/SGPT) 79 U/L (14-59) Alkaline Phosphatase 29 U/L (46-116) Total Protein 5.5 g/dL (6.4-8.2) Albumin 2.7 g/dL (3.4-5.0) Albumin/Globulin Ratio 1.0 (1.0-1.7) O2 Saturation 98 % (92-99) Arterial Blood pH 7.42 (7.35-7.45) Arterial Blood pCO2 at Patient Temp 44 mmHg (35-46) Arterial Blood pO2 at Patient Temp 115 mmHg (65-108) Arterial Blood HCO3 28 mmol/L (21-28) Arterial Blood Base Excess 3 mmol/L (-3-3) FiO2 40 Microbiology 11/14/18 Blood Culture - Final, Complete NO GROWTH AFTER 5 DAYS 11/14/18 Urine Culture - Final, Complete 11/14/18 Urine Culture Result 1 (KRISTA) - Final, Complete Medications Current Medications Methylprednisolone Sodium Succinate (SOLU-Medrol 125MG VIAL) 125 mg 1X ONCE IV Last administered on 11/14/18at 17:14; Start 11/14/18 at 16:45; Stop 11/14/18 at 16:46; Status DC Albuterol/ Ipratropium (Duoneb) 3 ml 1X ONCE NEB Last administered on 11/14/18at 17:04; Start 11/14/18 at 16:45; Stop 11/14/18 at 16:46; Status DC Ondansetron HCl (Zofran) 4 mg 1X ONCE IV Last administered on 11/14/18at 17:13; Start 11/14/18 at 17:00; Stop 11/14/18 at 17:01; Status DC Propofol 0 ml @ As Directed STK-MED ONCE IV ; Start 11/14/18 at 18:09; Stop 11/14/18 at 18:10; Status DC Etomidate (Amidate) 20 mg STK-MED ONCE IV ; Start 11/14/18 at 18:17; Stop 11/14/18 at 18:18; Status DC Rocuronium [place] (Zemuron) 50 mg STK-MED ONCE .ROUTE ; Start 11/14/18 at 18:17; Stop 11/14/18 at 18:18; Status DC Propofol 100 ml @ 0 mls/hr CONT PRN IV SEE PROTOCOL Last administered on 11/14/18at 18:00; Start 11/14/18 at 18:30; Stop 11/15/18 at 07:38; Status DC Chlorhexidine Gluconate (Peridex) 15 ml BID MM ; Start 11/14/18 at 21:00; Stop 11/15/18 at 16:12; Status DC Midazolam HCl 100 ml @ 0 mls/hr CONT PRN IV SEE PROTOCOL; Start 11/14/18 at 18:30; Stop 11/14/18 at 20:14; Status DC Cefepime HCl (Maxipime) 2 gm Q12HR IVP Last administered on 11/20/18at 08:20; Start 11/14/18 at 18:27 Azithromycin 250 ml @ 250 mls/hr 1X ONCE IV Last administered on 11/14/18at 22:56; Start 11/14/18 at 18:30; Stop 11/14/18 at 19:29; Status DC Vancomycin HCl (Vanco Per Pharmacy) 1 each PRN DAILY PRN MC SEE COMMENTS Last administered on 11/15/18at 10:17; Start 11/14/18 at 18:30; Stop 11/16/18 at 08:07; Status DC Propofol 50 ml @ 0 mls/hr 1X ONCE IV ; Start 11/14/18 at 18:30; Stop 11/14/18 at 18:31; Status DC Etomidate (Amidate) 20 mg 1X ONCE IV Last administered on 11/14/18at 18:11; Start 11/14/18 at 18:30; Stop 11/14/18 at 18:31; Status DC Rocuronium [place] (Zemuron) 50 mg 1X ONCE IV Last administered on 11/14/18 18 :11; Start 11/14/18 at 18:30; Stop 11/14/18 at 18:31; Status DC Sodium Chloride 1,000 ml @ 1,000 mls/hr 1X ONCE IV Last administered on 11/14/18at 18:11; Start 11/14/18 at 18:30; Stop 11/14/18 at 19:29; Status DC Vancomycin HCl 1.75 gm/Sodium Chloride 500 ml @ 250 mls/hr 1X ONCE IV Last administered on 11/14/18at 21:00; Start 11/14/18 at 19:00; Stop 11/14/18 at 20:59; Status DC Midazolam HCl 100 ml @ 5 mls/hr CONT PRN IV SEE I/O RECORD Last administered on 11/15/18at 06:05; Start 11/14/18 at 20:30; Stop 11/16/18 at 12:47; Status DC Sodium Chloride 1,000 ml @ 1,000 mls/hr 1X ONCE IV Last administered on 11/14/18at 21:07; Start 11/14/18 at 21:00; Stop 11/14/18 at 21:59; Status DC Methylprednisolone Sodium Succinate (SOLU-Medrol 125MG VIAL) 125 mg Q12HR IV Last administered on 11/19/18at 08:54; Start 11/15/18 at 09:00; Stop 11/19/18 at 10:15; Status DC Albuterol/ Ipratropium (Duoneb) 3 ml Q4HRS NEB ; Start 11/15/18 at 00:00; Status Cancel Sodium Chloride 1,000 ml @ 75 mls/hr [id number] IV Last administered on 11/19/18at 21:39; Start 11/14/18 at 22:00 Sodium Chloride 1,000 ml @ 999 mls/hr 1X ONCE IV ; Start 11/14/18 at 20:45; Stop 11/14/18 at 21:45; Status UNV Albuterol/ Ipratropium (Duoneb) 3 ml RTQID NEB ; Start 11/15/18 at 08:00; Stop 11/15/18 at 08:00; Status DC Albuterol Sulfate (Ventolin Neb Soln) 2.5 mg PRN Q4HRS PRN NEB SHORTNESS OF BREATH Last administered on 11/15/18at 20:23; Start 11/14/18 at 20:45 Norepinephrine Bitartrate 250 ml @ 1.875 mls/ hr CONT PRN IV SEE I/O RECORD Last administered on 11/15/18at 02:33; Start 11/14/18 at 22:30; Stop 11/16/18 at 12:47; Status DC Sodium Chloride 1,000 ml @ 999 mls/hr 1X ONCE IV Last administered on 11/14/18at 22:55; Start 11/14/18 at 23:00; Stop 11/15/18 at 00:00; Status DC Albuterol/ Ipratropium (Duoneb) 3 ml Q4HRS NEB Last administered on 11/20/18at 08:40; Start 11/15/18 at 00:00 Vancomycin HCl 1 gm/Sodium Chloride 250 ml @ 250 mls/hr Q12H IV Last administered on 11/15/18 09:53; Start 11/15/18 at 09:00; Stop 11/15/18 at 12:00; Status DC Vancomycin HCl (Vancomycin Trough Level) 1 each 1X ONCE MC ; Start 11/16/18 at 20:30; Stop 11/16/18 at 20:31; Status Cancel Fentanyl Citrate 30 ml @ 0 mls/hr CONT PRN IV SEE PROTOCOL Last administered on 11/16/18at 04:50; Start 11/15/18 at 07:45; Stop 11/16/18 at 12:47; Status DC Sodium Chloride 1,000 ml @ 1,000 mls/hr 1X ONCE IV Last administered on 11/15/18 09:54; Start 11/15/18 at 09:15; Stop 11/15/18 at 10:14; Status DC Famotidine (Pepcid Vial) 20 mg BID IVP Last administered on 11/20/18 08:21; Start 11/15/18 at 10:00 Enoxaparin Sodium (Lovenox Per Pharmacy Prophylaxis Dosing) 1 each DAILY MC Last administered on 11/17/18at 09:00; Start 11/16/18 at 09:00 Enoxaparin Sodium (Lovenox 40mg Syringe) 40 mg Q24H SQ Last administered on 11/20/18 08:21; Start 11/15/18 at 10:00 Vancomycin HCl 1 gm/Sodium Chloride 250 ml @ 250 mls/hr Q18H IV Last administered on 11/16/18 03:01; Start 11/16/18 at 03:00; Stop 11/16/18 at 08:06; Status DC Lorazepam (Ativan Inj) 2 mg PRN Q4HRS PRN IV ANXIETY / AGITATION Last administered on 11/16/18 15:28; Start 11/15/18 at 12:45 Propofol 100 ml @ 0 mls/hr CONT PRN IV SEE PROTOCOL Last administered on 11/16/18 04:48; Start 11/15/18 at 16:15; Stop 11/16/18 at 12:47; Status DC Flumazenil (Romazicon) 0.1 mg 1X ONCE IV Last administered on 11/16/18at 16:46; Start 11/16/18 at 16:45; Stop 11/16/18 at 16:46; Status DC Flumazenil (Romazicon) 0.1 mg 1X ONCE IV Last administered on 11/16/18at 17:49; Start 11/16/18 at 17:45; Stop 11/16/18 at 17:49; Status DC Propofol 100 ml @ As Directed STK-MED ONCE IV ; Start 11/16/18 at 20:46; Stop 11/16/18 at 20:47; Status DC Propofol 100 ml @ 1.145 mls/ hr CONT PRN IV SEE I/O RECORD Last administered on 11/20/18at 08:17; Start 11/17/18 at 02:30 Fentanyl Citrate (Fentanyl 2ml Vial) 50 mcg PRN Q2HR PRN IV PAIN Last administered on 11/17/18at 02:41; Start 11/17/18 at 02:30 Fentanyl Citrate 30 ml @ 0 mls/hr CONT PRN IV SEE PROTOCOL Last administered on 11/20/18at 06:39; Start 11/17/18 at 07:15 Dextrose (Dextrose 50%-Water Syringe) 12.5 gm PRN Q15MIN PRN IV SEE COMMENTS; Start 11/17/18 at 11:30 Propofol (Diprivan) 200 mg STK-MED ONCE IV ; Start 11/16/18 at 12:00; Stop 11/17/18 at 15:00; Status DC Rocuronium [place] (Zemuron) 50 mg STK-MED ONCE .ROUTE ; Start 11/16/18 at 12:00; Stop 11/17/18 at 15:00; Status DC Methylprednisolone Sodium Succinate (SOLU-Medrol 40MG VIAL) 40 mg Q12HR IV Last administered on 11/20/18at 08:21; Start 11/19/18 at 21:00 Active Scripts Active Guaifenesin Dm Syrup (Guaifenesin/Dextromethorphan) 5 Ml Syrup 10 Ml PO PRN Q6HRS PRN MDD 1 7 Days Reported Prednisone (Prednisone) 10 Mg Tablet 10 Mg PO DAILY Fluoxetine Hcl 20 Mg Capsule 20 Mg PO DAILY Incruse Ellipta (Umeclidinium [place]) 62.5 Mcg Blst.w.dev 62.5 Mcg IH DAILY Breo Ellipta 100-25 Mcg Inh (Fluticasone/Vilanterol) 1 Each Aer.pow.ba 1 Puff IH DAILY Tudorza Pressair (Aclidinium [place]) 400 Mcg Aer.pow.ba 400 Mcg IH DAILY Vitals/I & O Vital Sign - Last 24 Hours 11/19/18 11/19/18 11/19/18 11/19/18 10:59 11:00 12:00 12:00 Temp 98.2 98.2 Pulse 59 70 Resp 18 18 B/P (MAP) 137/76 (96) 110/59 (76) Pulse Ox 98 98 96 O2 Delivery Ventilator Ventilator Ventilator Mechanical Ventilator 11/19/18 11/19/18 11/19/18 11/19/18 13:00 14:00 15:00 15:27 Pulse 71 71 59 Resp 18 18 18 B/P (MAP) 109/59 (76) 119/65 (83) 109/66 (80) Pulse Ox 97 98 98 98 O2 Delivery Ventilator Ventilator Ventilator Ventilator 11/19/18 11/19/18 11/19/18 11/19/18 15:40 16:00 16:00 17:00 Temp 98.2 98.2 Pulse 67 58 Resp 18 18 18 B/P (MAP) 117/71 (86) 123/70 (87) Pulse Ox 98 98 98 O2 Delivery Mechanical Ventilator Ventilator Ventilator O2 Flow Rate 3.0 11/19/18 11/19/18 11/19/18 11/19/18 17:18 18:00 19:00 20:00 Temp 99.7 99.7 Pulse 69 64 56 Resp 18 18 18 B/P (MAP) 116/59 (78) 106/58 (74) 99/55 (70) Pulse Ox 98 97 97 98 O2 Delivery Ventilator Ventilator Ventilator Ventilator 11/19/18 11/19/18 11/19/18 11/19/18 20:00 20:28 21:00 22:00 Pulse 48 50 Resp 18 18 B/P (MAP) 118/72 (87) 141/71 (94) Pulse Ox 98 97 97 O2 Delivery Mechanical Ventilator Ventilator Ventilator Ventilator 11/19/18 11/19/18 11/20/18 11/20/18 23:00 23:05 00:00 00:01 Temp 99.5 99.5 Pulse 56 62 Resp 18 18 B/P (MAP) 111/59 (76) 80/57 (65) Pulse Ox 97 99 98 O2 Delivery Ventilator Ventilator Mechanical Ventilator Ventilator 11/20/18 11/20/18 11/20/18 11/20/18 01:00 02:00 02:47 03:00 Pulse 54 58 56 Resp 18 18 18 B/P (MAP) 112/60 (77) 110/59 (76) 102/56 (71) Pulse Ox 97 97 99 97 O2 Delivery Ventilator Ventilator Ventilator Ventilator 11/20/18 11/20/18 11/20/18 11/20/18 04:00 04:01 04:08 05:00 Temp 98.0 98.0 Pulse 52 51 Resp 18 18 B/P (MAP) 96/56 (69) 94/52 (66) Pulse Ox 99 99 98 O2 Delivery Ventilator Mechanical Ventilator Ventilator Ventilator 11/20/18 11/20/18 11/20/18 11/20/18 05:55 06:00 06:39 07:00 Temp 97.7 97.7 Pulse 52 58 Resp 18 18 B/P (MAP) 97/54 (68) 98/56 (70) Pulse Ox 99 97 97 100 O2 Delivery Ventilator Ventilator Ventilator O2 Flow Rate 3.0 11/20/18 11/20/18 11/20/18 11/20/18 07:09 08:00 08:00 08:40 Pulse 52 Resp 18 18 B/P (MAP) 86/54 (65) Pulse Ox 100 100 99 O2 Delivery Ventilator Ventilator Mechanical Ventilator Ventilator Intake and Output 11/19/18 11/19/18 11/20/18 15:00 23:00 07:00 Intake Total 200 ml 2830 ml 2155 ml Output Total 425 ml 325 ml 310 ml Balance -225 ml 2505 ml 1845 ml VON ROGERS MD Nov 20, 2018 10:21
--- NOTE | 2018-11-20 12:56 | NUR ---
SS following up with discharge planning. Pt remains on the vent. Palliative Care consulted and scheduling family meeting. SS will continue to follow for discharge planning.
--- NOTE | 2018-11-20 13:22 | NUR ---
Patient has vomited 3 times since off sedation and placed on cpap trial. This RN has placed patient's OG on intermittent sunction.
[2018-11-20] MEDS: IV NORMAL SALINE 1000ML BAG 1,000 ML IV SCH (20:52)
[2018-11-21] VITALS (24 sets, daily range): BP systolic 92–131; BP diastolic 52–75
[2018-11-21] MEDS: IPRATRPIUM/ALBUTEROL 0.5/2.5MG 3 ML NEBU. NEB SCH ×6 (00:05→19:56)
[2018-11-21 05:10] LABS: BASO % 0 % (0-3); EOS % 0 % (0-3); HEMATOCRIT 32.3 % (36.0-47.0); HEMOGLOBIN 10.6 g/dL (12.0-15.5); LYMPH # 0.8 x10^3/uL (1.0-4.8); LYMPH % 7 % (24-48); MEAN CORPUSCULAR HEMOGLOBIN 29 pg (25-35); MEAN CORPUSCULAR HGB CONC 33 g/dL (31-37); MEAN CORPUSCULAR VOLUME 89 fL (79-100); MONO # 0.7 x10^3/uL (0.0-1.1); MONO % 6 % (0-9); NEUT # 10.9 x10^3/uL (1.8-7.7); NEUT % 87 % (31-73); PLATELET COUNT 229 x10^3/uL (140-400); RED BLOOD COUNT 3.62 x10^6/uL (3.50-5.40); RED CELL DISTRIBUTION WIDTH 14.8 % (11.5-14.5); WHITE BLOOD COUNT 12.5 x10^3/uL (4.0-11.0)
[2018-11-21 05:49] LABS: ALBUMIN 2.7 g/dL (3.4-5.0); CALCIUM 9.1 mg/dL (8.5-10.1); CREATININE 0.5 mg/dL (0.6-1.0); GFR 124.2; PHOSPHORUS 3.5 mg/dL (2.6-4.7); POTASSIUM 4.1 mmol/L (3.5-5.1)
--- NOTE | 2018-11-21 07:06 | PDOC ---
Infectious Disease Note Subjective Subjective Orally intubated alert. Has some nausea No fevers ROS ROS difficult to obtain Vital Sign Vital Signs Vital Signs Date Time Temp Pulse Resp B/P (MAP) Pulse Ox O2 Delivery O2 Flow Rate FiO2 11/21/18 06:00 71 18 105/71 (82) 99 Ventilator 11/21/18 04:00 98.4 98.4 Physical Exam PHYSICAL EXAM GENERAL: Intubated, Very Alert and responds to simple questions HEENT: Pupils equal, ETT, OGT NECK: Supple. LUNGS: Clear anteriorly HEART: S1, S2. + murmur ABDOMEN: little distended, soft, + BS : Carvalho in place EXTREMITIES: No cyanosis, 1 edema. LUE1 -2 DERMATOLOGIC: Warm, dry. No generalized rash. NEUROLOGIC: alert PIV Labs Lab Laboratory Tests Test 11/20/18 08:40 11/21/18 04:55 O2 Saturation 98 % (92-99) Arterial Blood pH 7.42 (7.35-7.45) Arterial Blood pCO2 at Patient Temp 44 mmHg (35-46) Arterial Blood pO2 at Patient Temp 115 mmHg (65-108) Arterial Blood HCO3 28 mmol/L (21-28) Arterial Blood Base Excess 3 mmol/L (-3-3) FiO2 40 White Blood Count 12.5 x10^3/uL (4.0-11.0) Red Blood Count 3.62 x10^6/uL (3.50-5.40) Hemoglobin 10.6 g/dL (12.0-15.5) Hematocrit 32.3 % (36.0-47.0) Mean Corpuscular Volume 89 fL (79-100) Mean Corpuscular Hemoglobin 29 pg (25-35) Mean Corpuscular Hemoglobin Concent 33 g/dL (31-37) Red Cell Distribution Width 14.8 % (11.5-14.5) Platelet Count 229 x10^3/uL (140-400) Neutrophils (%) (Auto) 87 % (31-73) Lymphocytes (%) (Auto) 7 % (24-48) Monocytes (%) (Auto) 6 % (0-9) Eosinophils (%) (Auto) 0 % (0-3) Basophils (%) (Auto) 0 % (0-3) Neutrophils # (Auto) 10.9 x10^3/uL (1.8-7.7) Lymphocytes # (Auto) 0.8 x10^3/uL (1.0-4.8) Monocytes # (Auto) 0.7 x10^3/uL (0.0-1.1) Eosinophils # (Auto) 0.0 x10^3/uL (0.0-0.7) Basophils # (Auto) 0.0 x10^3/uL (0.0-0.2) Sodium Level 140 mmol/L (136-145) Potassium Level 4.1 mmol/L (3.5-5.1) Chloride Level 103 mmol/L (98-107) Carbon Dioxide Level 33 mmol/L (21-32) Anion Gap 4 (6-14) Blood Urea Nitrogen 23 mg/dL (7-20) Creatinine 0.5 mg/dL (0.6-1.0) Estimated GFR (Cockcroft-Gault) 124.2 Glucose Level 95 mg/dL (70-99) Calcium Level 9.1 mg/dL (8.5-10.1) Phosphorus Level 3.5 mg/dL (2.6-4.7) Albumin 2.7 g/dL (3.4-5.0) Micro Microbiology 11/14/18 Blood Culture - Final, Complete NO GROWTH AFTER 5 DAYS 11/14/18 Urine Culture - Final, Complete 11/14/18 Urine Culture Result 1 (KRISTA) - Final, Complete Objective Assessment N/Vomiting Hypotension, questionable sepsis. - off Levophed since 11/16 leukocytosis - on steroid Acute on chronic respiratory failure. Suspected emphysema. Moderate aortic stenosis. Encephalopathy, likely metabolic - resolved, Anxiety. Obstructive sleep apnea. Protein-calorie malnutrition. Anemia. Plan Plan of Care D/c empiric cefepime with nausea and vomiting and expand to Zosyn for aspiration Steroids Cultures neg to date Supportive care. Await further Pulm f/u D/w nursing GENARO PEPPER MD Nov 21, 2018 07:06
[2018-11-21 07:33] LABS: BASE EXCESS ABG 6 mmol/L (-3-3); HCO3 ABG 30 mmol/L (21-28); PCO2 ABG 44 mmHg (35-46); PO2 ABG 118 mmHg (65-108); SAT O2 ABG 98 % (92-99)
[2018-11-21 07:34] LABS: FIO2 ABG 40
[2018-11-21] MEDS: methylPREDNISolone SOD SUCC PF 40 MG/ML VIAL. IV SCH ×2 (07:58→20:30)
[2018-11-21] MEDS: FAMOTIDINE 20 MG/2 ML VIAL IVP SCH ×2 (07:58→20:31)
[2018-11-21] MEDS: PIPERACILLIN/TAZOBACTAM 3.375 GM in IV NORMAL SALINE 50ML 50 ML IV SCH ×4 (07:58→23:54)
[2018-11-21] MEDS ORDERED: ONDANSETRON PF 4 MG/2 ML VIAL. IV PRN (08:00)
[2018-11-21] MEDS: IV NORMAL SALINE 1000ML BAG 1,000 ML IV SCH (08:01)
[2018-11-21] MEDS: ENOXAPARIN 40 MG/0.4 ML SYRINGE. SQ SCH (08:02)
--- NOTE | 2018-11-21 09:25 | PDOC ---
PROGRESS NOTES Chief Complaint Chief Complaint 63 old female who is an ex-smoker, admitted for COPD exacerbation, icu/// intubation History of Present Illness History of Present Illness Assessment/Plan Assessment/Plan acute hypercarbic respiratory failure, critical pH and PCO2 levels metabolic encephalopathy acute hypoxia COPD with acute bronchitis exacerbation of chronic obstructive pulmonary disease shock. likely a combination of hypovolemic and septic shock. RECENT ECHO 09/24 Transmitral Doppler flow pattern is Grade I-abnormal relaxation pattern. Moderate aortic stenosis. Trace mitral regurgitation. Trace tricuspid regurgitation. The PA pressure was estimated at 36 mmHg. Small bilateral lung nodules. follow-up noncontrast chest CT SOON per Fleischner guidelines. MODERATE PROTEIN-CALORIC MALNUTRITION COPD changes. Superimposed mild atypical/viral infection not ruled out. cxr 11/20 ICU, ATTEMPT extubation 11/20 CPAP trial today. extubate today 11/21 DNI/DNR POST EXTUBATION. pulm FOLLOWING ID following CARDIOLOGY CONSULT/// RE SHOCK, AORTIC STENOSIS Deep venous thrombosis prophylaxis. Stress ulcer prophylaxis. d/c vanc prn Levophed to keep systolic pressure above 100. empiric cefepime, (11/14). Steroids iv 11/17 worsening respiratory acidosis, failed BIPAP , Re-intubated, AC mode 11/18 BLOOD CULT NEG TO DATE present assist control mode. 11/20 dnr status post extubation planned 11/21 D/c empiric cefepime 35 min CC TIME Vitals Vitals Vital Signs Date Time Temp Pulse Resp B/P (MAP) Pulse Ox O2 Delivery O2 Flow Rate FiO2 11/21/18 09:00 Ventilator 11/21/18 08:00 64 18 119/61 (80) 99 11/21/18 07:00 98.4 98.4 Physical Exam Physical Exam GENERAL: Intubated, Very Alert and responds to simple questions HEENT: Pupils equal, ETT, OGT NECK: Supple. LUNGS: Clear anteriorly HEART: S1, S2. + murmur ABDOMEN: little distended, soft, + BS : Carvalho in place EXTREMITIES: No cyanosis, 1 edema. LUE1 -2 DERMATOLOGIC: Warm, dry. No generalized rash. NEUROLOGIC: alert PIV General: Cooperative, No acute distress, Other (confused to details) Heart: Regular rate (SR no ectopies), Other (3/6 systolic murmur to AKNI border) Lungs: Clear Abdomen: Normal bowel sounds, Soft, No tenderness Extremities: No clubbing, No cyanosis Skin: No breakdown, No significant lesion Labs LABS TECHNIQUE:Portable AP chest X-ray COMPARISON: 11/19/2018 FINDINGS: ET tube is seen in stable position. NG tube is seen with its tip not visualized and presumably in the stomach. Lungs are hyperinflated and hyperlucent without focal consolidation. No pneumothorax or pleural effusion. Heart is normal in size. Visualized bony thorax is within normal limits. IMPRESSION: COPD changes. Superimposed mild atypical/viral infection not ruled out. Electronically signed by: Yehuda Kathleen DO (11/20/2018 7:36 AM) [facility] DICTATED and SIGNED BY: YEHUDA KATHLEEN DO DATE: 11/20/18 0736 Laboratory Tests Test 11/21/18 04:55 11/21/18 07:15 White Blood Count 12.5 x10^3/uL (4.0-11.0) Red Blood Count 3.62 x10^6/uL (3.50-5.40) Hemoglobin 10.6 g/dL (12.0-15.5) Hematocrit 32.3 % (36.0-47.0) Mean Corpuscular Volume 89 fL (79-100) Mean Corpuscular Hemoglobin 29 pg (25-35) Mean Corpuscular Hemoglobin Concent 33 g/dL (31-37) Red Cell Distribution Width 14.8 % (11.5-14.5) Platelet Count 229 x10^3/uL (140-400) Neutrophils (%) (Auto) 87 % (31-73) Lymphocytes (%) (Auto) 7 % (24-48) Monocytes (%) (Auto) 6 % (0-9) Eosinophils (%) (Auto) 0 % (0-3) Basophils (%) (Auto) 0 % (0-3) Neutrophils # (Auto) 10.9 x10^3/uL (1.8-7.7) Lymphocytes # (Auto) 0.8 x10^3/uL (1.0-4.8) Monocytes # (Auto) 0.7 x10^3/uL (0.0-1.1) Eosinophils # (Auto) 0.0 x10^3/uL (0.0-0.7) Basophils # (Auto) 0.0 x10^3/uL (0.0-0.2) Sodium Level 140 mmol/L (136-145) Potassium Level 4.1 mmol/L (3.5-5.1) Chloride Level 103 mmol/L (98-107) Carbon Dioxide Level 33 mmol/L (21-32) Anion Gap 4 (6-14) Blood Urea Nitrogen 23 mg/dL (7-20) Creatinine 0.5 mg/dL (0.6-1.0) Estimated GFR (Cockcroft-Gault) 124.2 Glucose Level 95 mg/dL (70-99) Calcium Level 9.1 mg/dL (8.5-10.1) Phosphorus Level 3.5 mg/dL (2.6-4.7) Albumin 2.7 g/dL (3.4-5.0) O2 Saturation 98 % (92-99) Arterial Blood pH 7.45 (7.35-7.45) Arterial Blood pCO2 at Patient Temp 44 mmHg (35-46) Arterial Blood pO2 at Patient Temp 118 mmHg (65-108) Arterial Blood HCO3 30 mmol/L (21-28) Arterial Blood Base Excess 6 mmol/L (-3-3) FiO2 40 Assessment and Plan Assessmemt and Plan Problems Medical Problems: (1) Acute hypercapnic respiratory failure Status: Acute Comment Review of Relevant I have reviewed the following items heaven (where applicable) has been applied. Labs Laboratory Tests Test 11/20/18 06:25 11/20/18 08:40 11/21/18 04:55 11/21/18 07:15 White Blood Count 11.2 x10^3/uL (4.0-11.0) 12.5 x10^3/uL (4.0-11.0) Red Blood Count 3.75 x10^6/uL (3.50-5.40) 3.62 x10^6/uL (3.50-5.40) Hemoglobin 10.7 g/dL (12.0-15.5) 10.6 g/dL (12.0-15.5) Hematocrit 33.7 % (36.0-47.0) 32.3 % (36.0-47.0) Mean Corpuscular Volume 90 fL (79-100) 89 fL (79-100) Mean Corpuscular Hemoglobin 29 pg (25-35) 29 pg (25-35) Mean Corpuscular Hemoglobin Concent 32 g/dL (31-37) 33 g/dL (31-37) Red Cell Distribution Width 15.2 % (11.5-14.5) 14.8 % (11.5-14.5) Platelet Count 228 x10^3/uL (140-400) 229 x10^3/uL (140-400) Neutrophils (%) (Auto) 71 % (31-73) 87 % (31-73) Lymphocytes (%) (Auto) 16 % (24-48) 7 % (24-48) Monocytes (%) (Auto) 12 % (0-9) 6 % (0-9) Eosinophils (%) (Auto) 1 % (0-3) 0 % (0-3) Basophils (%) (Auto) 0 % (0-3) 0 % (0-3) Neutrophils # (Auto) 7.9 x10^3/uL (1.8-7.7) 10.9 x10^3/uL (1.8-7.7) Lymphocytes # (Auto) 1.8 x10^3/uL (1.0-4.8) 0.8 x10^3/uL (1.0-4.8) Monocytes # (Auto) 1.4 x10^3/uL (0.0-1.1) 0.7 x10^3/uL (0.0-1.1) Eosinophils # (Auto) 0.1 x10^3/uL (0.0-0.7) 0.0 x10^3/uL (0.0-0.7) Basophils # (Auto) 0.0 x10^3/uL (0.0-0.2) 0.0 x10^3/uL (0.0-0.2) Segmented Neutrophils % 75 % (35-66) Band Neutrophils % 1 % (0-9) Lymphocytes % 17 % (24-48) Monocytes % 6 % (0-10) Metamyelocytes % 1 % (0-0) Platelet Estimate Adequate (ADEQUATE) Sodium Level 143 mmol/L (136-145) 140 mmol/L (136-145) Potassium Level 3.6 mmol/L (3.5-5.1) 4.1 mmol/L (3.5-5.1) Chloride Level 107 mmol/L (98-107) 103 mmol/L (98-107) Carbon Dioxide Level 31 mmol/L (21-32) 33 mmol/L (21-32) Anion Gap 5 (6-14) 4 (6-14) Blood Urea Nitrogen 29 mg/dL (7-20) 23 mg/dL (7-20) Creatinine 0.6 mg/dL (0.6-1.0) 0.5 mg/dL (0.6-1.0) Estimated GFR (Cockcroft-Gault) 100.6 124.2 BUN/Creatinine Ratio 48 (6-20) Glucose Level 95 mg/dL (70-99) 95 mg/dL (70-99) Calcium Level 9.0 mg/dL (8.5-10.1) 9.1 mg/dL (8.5-10.1) Total Bilirubin 0.2 mg/dL (0.2-1.0) Aspartate Amino Transf (AST/SGOT) 27 U/L (15-37) Alanine Aminotransferase (ALT/SGPT) 79 U/L (14-59) Alkaline Phosphatase 29 U/L (46-116) Total Protein 5.5 g/dL (6.4-8.2) Albumin 2.7 g/dL (3.4-5.0) 2.7 g/dL (3.4-5.0) Albumin/Globulin Ratio 1.0 (1.0-1.7) O2 Saturation 98 % (92-99) 98 % (92-99) Arterial Blood pH 7.42 (7.35-7.45) 7.45 (7.35-7.45) Arterial Blood pCO2 at Patient Temp 44 mmHg (35-46) 44 mmHg (35-46) Arterial Blood pO2 at Patient Temp 115 mmHg (65-108) 118 mmHg (65-108) Arterial Blood HCO3 28 mmol/L (21-28) 30 mmol/L (21-28) Arterial Blood Base Excess 3 mmol/L (-3-3) 6 mmol/L (-3-3) FiO2 40 40 Phosphorus Level 3.5 mg/dL (2.6-4.7) Laboratory Tests Test 11/21/18 04:55 11/21/18 07:15 White Blood Count 12.5 x10^3/uL (4.0-11.0) Red Blood Count 3.62 x10^6/uL (3.50-5.40) Hemoglobin 10.6 g/dL (12.0-15.5) Hematocrit 32.3 % (36.0-47.0) Mean Corpuscular Volume 89 fL (79-100) Mean Corpuscular Hemoglobin 29 pg (25-35) Mean Corpuscular Hemoglobin Concent 33 g/dL (31-37) Red Cell Distribution Width 14.8 % (11.5-14.5) Platelet Count 229 x10^3/uL (140-400) Neutrophils (%) (Auto) 87 % (31-73) Lymphocytes (%) (Auto) 7 % (24-48) Monocytes (%) (Auto) 6 % (0-9) Eosinophils (%) (Auto) 0 % (0-3) Basophils (%) (Auto) 0 % (0-3) Neutrophils # (Auto) 10.9 x10^3/uL (1.8-7.7) Lymphocytes # (Auto) 0.8 x10^3/uL (1.0-4.8) Monocytes # (Auto) 0.7 x10^3/uL (0.0-1.1) Eosinophils # (Auto) 0.0 x10^3/uL (0.0-0.7) Basophils # (Auto) 0.0 x10^3/uL (0.0-0.2) Sodium Level 140 mmol/L (136-145) Potassium Level 4.1 mmol/L (3.5-5.1) Chloride Level 103 mmol/L (98-107) Carbon Dioxide Level 33 mmol/L (21-32) Anion Gap 4 (6-14) Blood Urea Nitrogen 23 mg/dL (7-20) Creatinine 0.5 mg/dL (0.6-1.0) Estimated GFR (Cockcroft-Gault) 124.2 Glucose Level 95 mg/dL (70-99) Calcium Level 9.1 mg/dL (8.5-10.1) Phosphorus Level 3.5 mg/dL (2.6-4.7) Albumin 2.7 g/dL (3.4-5.0) O2 Saturation 98 % (92-99) Arterial Blood pH 7.45 (7.35-7.45) [facility] (35-46[facility] Arterial Blood pO2 at Patient Temp 118 mmHg (65-108) Arterial Blood HCO3 30 mmol/L (21-28) Arterial Blood Base Excess 6 mmol/L (-3-3) FiO2 40 Microbiology 11/14/18 Blood Culture - Final, Complete NO GROWTH AFTER 5 DAYS 11/14/18 Urine Culture - Final, Complete 11/14/18 Urine Culture Result 1 (KRISTA) - Final, Complete Medications Current Medications Methylprednisolone Sodium Succinate (SOLU-Medrol 125MG VIAL) 125 mg 1X ONCE IV Last administered on 11/14/18at 17:14; Start 11/14/18 at 16:45; Stop 11/14/18 at 16:46; Status DC Albuterol/ Ipratropium (Duoneb) 3 ml 1X ONCE NEB Last administered on 11/14/18at 17:04; Start 11/14/18 at 16:45; Stop 11/14/18 at 16:46; Status DC Ondansetron HCl (Zofran) 4 mg 1X ONCE IV Last administered on 11/14/18at 17:13; Start 11/14/18 at 17:00; Stop 11/14/18 at 17:01; Status DC Propofol 0 ml @ As Directed STK-MED ONCE IV ; Start 11/14/18 at 18:09; Stop 11/14/18 at 18:10; Status DC Etomidate (Amidate) 20 mg STK-MED ONCE IV ; Start 11/14/18 at 18:17; Stop 11/14/18 at 18:18; Status DC Rocuronium Kelly (Zemuron) 50 mg STK-MED ONCE .ROUTE ; Start 11/14/18 at 18:17; Stop 11/14/18 at 18:18; Status DC Propofol 100 ml @ 0 mls/hr CONT PRN IV SEE PROTOCOL Last administered on 11/14/18at 18:00; Start 11/14/18 at 18:30; Stop 11/15/18 at 07:38; Status DC Chlorhexidine Gluconate (Peridex) 15 ml BID MM ; Start 11/14/18 at 21:00; Stop 11/15/18 at 16:12; Status DC Midazolam HCl 100 ml @ 0 mls/hr CONT PRN IV SEE PROTOCOL; Start 11/14/18 at 18:30; Stop 11/14/18 at 20:14; Status DC Cefepime HCl (Maxipime) 2 gm Q12HR IVP Last administered on 11/20/18at 20:52; Start 11/14/18 at 18:27; Stop 11/21/18 at 07:30; Status DC Azithromycin 250 ml @ 250 mls/hr 1X ONCE IV Last administered on 11/14/18 22:56; Start 11/14/18 at 18:30; Stop 11/14/18 at 19:29; Status DC Vancomycin HCl (Vanco Per Pharmacy) 1 each PRN DAILY PRN MC SEE COMMENTS Last administered on 11/15/18at 10:17; Start 11/14/18 at 18:30; Stop 11/16/18 at 08:07; Status DC Propofol 50 ml @ 0 mls/hr 1X ONCE IV ; Start 11/14/18 at 18:30; Stop 11/14/18 at 18:31; Status DC Etomidate (Amidate) 20 mg 1X ONCE IV Last administered on 11/14/18 18:11; Start 11/14/18 at 18:30; Stop 11/14/18 at 18:31; Status DC Rocuronium Kelly (Zemuron) 50 mg 1X ONCE IV Last administered on 11/14/18 18:11; Start 11/14/18 at 18:30; Stop 11/14/18 at 18:31; Status DC Sodium Chloride 1,000 ml @ 1,000 mls/hr 1X ONCE IV Last administered on 11/14/18 18:11; Start 11/14/18 at 18:30; Stop 11/14/18 at 19:29; Status DC Vancomycin HCl 1.75 gm/Sodium Chloride 500 ml @ 250 mls/hr 1X ONCE IV Last administered on 11/14/18 21:00; Start 11/14/18 at 19:00; Stop 11/14/18 at 20:59; Status DC Midazolam HCl 100 ml @ 5 mls/hr CONT PRN IV SEE I/O RECORD Last administered on 11/15/18 06:05; Start 11/14/18 at 20:30; Stop 11/16/18 at 12:47; Status DC Sodium Chloride 1,000 ml @ 1,000 mls/hr 1X ONCE IV Last administered on 7/9/19at 21:07; Start 11/14/18 at 21:00; Stop 11/14/18 at 21:59; Status DC Methylprednisolone Sodium Succinate (SOLU-Medrol 125MG VIAL) 125 mg Q12HR IV Last administered on 11/19/18at 08:54; Start 11/15/18 at 09:00; Stop 11/19/18 at 10:15; Status DC Albuterol/ Ipratropium (Duoneb) 3 ml Q4HRS NEB ; Start 11/15/18 at 00:00; Status Cancel Sodium Chloride 1,000 ml @ 75 mls/hr [id number] IV Last administered on 11/21/18at 08:01; Start 11/14/18 at 22:00 Sodium Chloride 1,000 ml @ 999 mls/hr 1X ONCE IV ; Start 11/14/18 at 20:45; Stop 11/14/18 at 21:45; Status UNV Albuterol/ Ipratropium (Duoneb) 3 ml RTQID NEB ; Start 11/15/18 at 08:00; Stop 11/15/18 at 08:00; Status DC Albuterol Sulfate (Ventolin Neb Soln) 2.5 mg PRN Q4HRS PRN NEB SHORTNESS OF BREATH Last administered on 11/15/18at 20:23; Start 11/14/18 at 20:45 Norepinephrine Bitartrate 250 ml @ 1.875 mls/ hr CONT PRN IV SEE I/O RECORD Last administered on 11/15/18at 02:33; Start 11/14/18 at 22:30; Stop 11/16/18 at 12:47; Status DC Sodium Chloride 1,000 ml @ 999 mls/hr 1X ONCE IV Last administered on 11/14/18at 22:55; Start 11/14/18 at 23:00; Stop 11/15/18 at 00:00; Status DC Albuterol/ Ipratropium (Duoneb) 3 ml Q4HRS NEB Last administered on 11/21/18at 07:18; Start 11/15/18 at 00:00 Vancomycin HCl 1 gm/Sodium Chloride 250 ml @ 250 mls/hr Q12H IV Last administered on 11/15/18at 09:53; Start 11/15/18 at 09:00; Stop 11/15/18 at 12:00; Status DC Vancomycin HCl (Vancomycin Trough Level) 1 each 1X ONCE MC ; Start 11/16/18 at 20:30; Stop 11/16/18 at 20:31; Status Cancel Fentanyl Citrate 30 ml @ 0 mls/hr CONT PRN IV SEE PROTOCOL Last administered on 11/16/18at 04:50; Start 11/15/18 at 07:45; Stop 11/16/18 at 12:47; Status DC Sodium Chloride 1,000 ml @ 1,000 mls/hr 1X ONCE IV Last administered on 11/15/18at 09:54; Start 11/15/18 at 09:15; Stop 11/15/18 at 10:14; Status DC Famotidine (Pepcid Vial) 20 mg BID IVP Last administered on 11/21/18at 07:58; Start 11/15/18 at 10:00 Enoxaparin Sodium (Lovenox Per Pharmacy Prophylaxis Dosing) 1 each DAILY MC Last administered on 11/17/18at 09:00; Start 11/16/18 at 09:00 Enoxaparin Sodium (Lovenox 40mg Syringe) 40 mg Q24H SQ Last administered on 11/21/18at 08:02; Start 11/15/18 at 10:00 Vancomycin HCl 1 gm/Sodium Chloride 250 ml @ 250 mls/hr Q18H IV Last administered on 11/16/18 03:01; Start 11/16/18 at 03:00; Stop 11/16/18 at 08:0 6; Status DC Lorazepam (Ativan Inj) 2 mg PRN Q4HRS PRN IV ANXIETY / AGITATION Last administered on 11/16/18at 15:28; Start 11/15/18 at 12:45 Propofol 100 ml @ 0 mls/hr CONT PRN IV SEE PROTOCOL Last administered on 11/16/18at 04:48; Start 11/15/18 at 16:15; Stop 11/16/18 at 12:47; Status DC Flumazenil (Romazicon) 0.1 mg 1X ONCE IV Last administered on 11/16/18at 16:46; Start 11/16/18 at 16:45; Stop 11/16/18 at 16:46; Status DC Flumazenil (Romazicon) 0.1 mg 1X ONCE IV Last administered on 11/16/18at 17:49; Start 11/16/18 at 17:45; Stop 11/16/18 at 17:49; Status DC Propofol 100 ml @ As Directed STK-MED ONCE IV ; Start 11/16/18 at 20:46; Stop 11/16/18 at 20:47; Status DC Propofol 100 ml @ 1.145 mls/ hr CONT PRN IV SEE I/O RECORD Last administered on 11/20/18at 08:17; Start 11/17/18 at 02:30 Fentanyl Citrate (Fentanyl 2ml Vial) 50 mcg PRN Q2HR PRN IV PAIN Last administered on 11/17/18at 02:41; Start 11/17/18 at 02:30 Fentanyl Citrate 30 ml @ 0 mls/hr CONT PRN IV SEE PROTOCOL Last administered on 11/20/18at 06:39; Start 11/17/18 at 07:15 Dextrose (Dextrose 50%-Water Syringe) 12.5 gm PRN Q15MIN PRN IV SEE COMMENTS; Start 11/17/18 at 11:30 Propofol (Diprivan) 200 mg STK-MED ONCE IV ; Start 11/16/18 at 12:00; Stop 11/17/18 at 15:00; Status DC Rocuronium Kelly (Zemuron) 50 mg STK-MED ONCE .ROUTE ; Start 11/16/18 at 12:00; Stop 11/17/18 at 15:00; Status DC Methylprednisolone Sodium Succinate (SOLU-Medrol 40MG VIAL) 40 mg Q12HR IV Last administered on 11/21/18at 07:58; Start 11/19/18 at 21:00 Piperacillin Sod/ Tazobactam Sod 3.375 gm/Sodium Chloride 50 ml @ 100 mls/hr Q6HRS IV Last administered on 11/21/18at 07:58; Start 11/21/18 at 08:00 Ondansetron HCl (Zofran) 4 mg PRN Q6HRS PRN IV NAUSEA/VOMITING Last administered on 11/21/18at 07:57; Start 11/21/18 at 08:00 Active Scripts Active Guaifenesin Dm Syrup (Guaifenesin/Dextromethorphan) 5 Ml Syrup 10 Ml PO PRN Q6HRS PRN MDD 1 7 Days Reported Prednisone (Prednisone) 10 Mg Tablet 10 Mg PO DAILY Fluoxetine Hcl 20 Mg Capsule 20 Mg PO DAILY Incruse Ellipta (Umeclidinium Kelly) 62.5 Mcg Blst.w.dev 62.5 Mcg IH DAILY Breo Ellipta 100-25 Mcg Inh (Fluticasone/Vilanterol) 1 Each Aer.pow.ba 1 Puff IH DAILY Tudorza Pressair (Aclidinium Kelly) 400 Mcg Aer.pow.ba 400 Mcg IH DAILY Vitals/I & O Vital Sign - Last 24 Hours 11/20/18 11/20/18 11/20/18 11/20/18 10:00 11:00 12:00 12:00 Temp 97.8 97.8 Pulse 66 67 72 Resp 18 18 33 B/P (MAP) 95/59 (71) 97/58 (71) 96/54 (68) Pulse Ox 98 97 97 O2 Delivery Ventilator Ventilator Ventilator Ventilator 11/20/18 11/20/18 11/20/18 11/20/18 12:00 13:00 14:00 14:00 Pulse 74 70 Resp 30 27 B/P (MAP) 114/57 (76) 99/57 (71) Pulse Ox 97 98 98 O2 Delivery Mechanical Ventilator Ventilator Ventilator Ventilator 11/20/18 11/20/18 11/20/18 11/20/18 15:00 15:55 16:00 16:00 Temp 98.0 98.0 Pulse 68 72 Resp 37 33 B/P (MAP) 113/59 (77) 103/59 (74) Pulse Ox 99 98 99 O2 Delivery Ventilator Ventilator Mechanical Ventilator Ventilator 11/20/18 11/20/18 11/20/18 11/20/18 17:00 17:30 18:00 18:13 Pulse 69 60 Resp 36 18 B/P (MAP) 103/61 (75) 108/56 (73) Pulse Ox 100 99 99 O2 Delivery Ventilator Ventilator Ventilator Ventilator 11/20/18 11/20/18 11/20/18 11/20/18 19:00 19:37 19:56 20:00 Temp 98.4 98.4 Pulse 74 58 Resp 18 18 B/P (MAP) 101/57 (72) 94/57 (69) Pulse Ox 100 99 99 O2 Delivery Ventilator Ventilator Mechanical Ventilator Ventilator 11/20/18 11/20/18 11/20/18 11/20/18 21:00 22:00 22:20 23:30 Pulse 59 68 69 Resp 18 18 18 B/P (MAP) 115/61 (79) 97/63 (74) 115/70 (85) Pulse Ox 100 100 99 99 O2 Delivery Ventilator Ventilator Ventilator Ventilator 11/20/18 11/21/18 11/21/18 11/21/18 23:59 00:00 00:10 01:00 Temp 98.8 98.8 Pulse 62 66 Resp 18 18 B/P (MAP) 101/55 (70) 128/65 (86) Pulse Ox 99 99 99 O2 Delivery Mechanical Ventilator Ventilator Ventilator Ventilator 11/21/18 11/21/18 11/21/18 11/21/18 02:00 03:00 03:40 03:40 Pulse 66 75 Resp 18 18 B/P (MAP) 99/56 (70) 115/66 (82) Pulse Ox 99 99 99 O2 Delivery Ventilator Ventilator Ventilator Mechanical Ventilator 11/21/18 11/21/18 11/21/18 11/21/18 04:00 05:00 05:50 06:00 Temp 98.4 98.4 Pulse 66 59 71 Resp 18 18 18 B/P (MAP) 114/65 (81) 104/57 (73) 105/71 (82) Pulse Ox 99 98 99 99 O2 Delivery Ventilator Ventilator Ventilator Ventilator 11/21/18 11/21/18 11/21/18 11/21/18 07:00 07:18 08:00 09:00 Temp 98.4 98.4 Pulse 68 64 Resp 18 18 B/P (MAP) 109/60 (76) 119/61 (80) Pulse Ox 99 99 99 O2 Delivery Ventilator Ventilator Ventilator Ventilator Intake and Output 11/20/18 11/20/18 11/21/18 15:00 23:00 07:00 Intake Total 200 ml 1106 ml 777 ml Output Total 380 ml 375 ml 440 ml Balance -180 ml 731 ml 337 ml VON ROGERS MD Nov 21, 2018 09:25
[2018-11-21 09:43] LABS: BASE EXCESS ABG 5 mmol/L (-3-3); HCO3 ABG 31 mmol/L (21-28); PCO2 ABG 54 mmHg (35-46); PO2 ABG 98 mmHg (65-108); SAT O2 ABG 97 % (92-99)
[2018-11-21 09:44] LABS: FIO2 ABG 40
--- NOTE | 2018-11-21 11:13 | PDOC ---
PULMONARY PROGRESS NOTES Subjective on vent, extubated 11/16, developed worsening respiratory acidosis, failed BIPAP , Re- intubated on 11/16 did 6 hrs of CPAP yesterday today again on CPAP, ABG adequate, no distress Vitals Vital Signs Date Time Temp Pulse Resp B/P (MAP) Pulse Ox O2 Delivery O2 Flow Rate FiO2 11/21/18 10:00 66 18 120/64 (82) 99 Ventilator 11/21/18 07:00 98.4 98.4 Comments ros as mentioned as above discussed w rn other sys otherwise neg sedated on vent General: Alert, No acute distress HEENT: Other (nc at perrl nose clear orally intubated neck no lad, no thyromegaly) Lungs: Clear Cardiovascular: S1, S2 Abdomen: Soft, Non-tender, Other (no mass) Neuro Exam: Alert Extremities: No Edema Skin: Warm Labs Laboratory Tests Test 11/20/18 06:25 11/20/18 08:40 11/21/18 04:55 11/21/18 07:15 White Blood Count 11.2 x10^3/uL (4.0-11.0) 12.5 x10^3/uL (4.0-11.0) Red Blood Count 3.75 x10^6/uL (3.50-5.40) 3.62 x10^6/uL (3.50-5.40) Hemoglobin 10.7 g/dL (12.0-15.5) 10.6 g/dL (12.0-15.5) Hematocrit 33.7 % (36.0-47.0) 32.3 % (36.0-47.0) Mean Corpuscular Volume 90 fL (79-100) 89 fL (79-100) Mean Corpuscular Hemoglobin 29 pg (25-35) 29 pg (25-35) Mean Corpuscular Hemoglobin Concent 32 g/dL (31-37) 33 g/dL (31-37) Red Cell Distribution Width 15.2 % (11.5-14.5) 14.8 % (11.5-14.5) Platelet Count 228 x10^3/uL (140-400) 229 x10^3/uL (140-400) Neutrophils (%) (Auto) 71 % (31-73) 87 % (31-73) Lymphocytes (%) (Auto) 16 % (24-48) 7 % (24-48) Monocytes (%) (Auto) 12 % (0-9) 6 % (0-9) Eosinophils (%) (Auto) 1 % (0-3) 0 % (0-3) Basophils (%) (Auto) 0 % (0-3) 0 % (0-3) Neutrophils # (Auto) 7.9 x10^3/uL (1.8-7.7) 10.9 x10^3/uL (1.8-7.7) Lymphocytes # (Auto) 1.8 x10^3/uL (1.0-4.8) 0.8 x10^3/uL (1.0-4.8) Monocytes # (Auto) 1.4 x10^3/uL (0.0-1.1) 0.7 x10^3/uL (0.0-1.1) Eosinophils # (Auto) 0.1 x10^3/uL (0.0-0.7) 0.0 x10^3/uL (0.0-0.7) Basophils # (Auto) 0.0 x10^3/uL (0.0-0.2) 0.0 x10^3/uL (0.0-0.2) Segmented Neutrophils % 75 % (35-66) Band Neutrophils % 1 % (0-9) Lymphocytes % 17 % (24-48) Monocytes % 6 % (0-10) Metamyelocytes % 1 % (0-0) Platelet Estimate Adequate (ADEQUATE) Sodium Level 143 mmol/L (136-145) 140 mmol/L (136-145) Potassium Level 3.6 mmol/L (3.5-5.1) 4.1 mmol/L (3.5-5.1) Chloride Level 107 mmol/L (98-107) 103 mmol/L (98-107) Carbon Dioxide Level 31 mmol/L (21-32) 33 mmol/L (21-32) Anion Gap 5 (6-14) 4 (6-14) Blood Urea Nitrogen 29 mg/dL (7-20) 23 mg/dL (7-20) Creatinine 0.6 mg/dL (0.6-1.0) 0.5 mg/dL (0.6-1.0) Estimated GFR (Cockcroft-Gault) 100.6 124.2 BUN/Creatinine Ratio 48 (6-20) Glucose Level 95 mg/dL (70-99) 95 mg/dL (70-99) Calcium Level 9.0 mg/dL (8.5-10.1) 9.1 mg/dL (8.5-10.1) Total Bilirubin 0.2 mg/dL (0.2-1.0) Aspartate Amino Transf (AST/SGOT) 27 U/L (15-37) Alanine Aminotransferase (ALT/SGPT) 79 U/L (14-59) Alkaline Phosphatase 29 U/L (46-116) Total Protein 5.5 g/dL (6.4-8.2) Albumin 2.7 g/dL (3.4-5.0) 2.7 g/dL (3.4-5.0) Albumin/Globulin Ratio 1.0 (1.0-1.7) O2 Saturation 98 % (92-99) 98 % (92-99) Arterial Blood pH 7.42 (7.35-7.45) 7.45 (7.35-7.45) Arterial Blood pCO2 at Patient Temp 44 mmHg (35-46) 44 mmHg (35-46) Arterial Blood pO2 at Patient Temp 115 mmHg (65-108) 118 mmHg (65-108) Arterial Blood HCO3 28 mmol/L (21-28) 30 mmol/L (21-28) Arterial Blood Base Excess 3 mmol/L (-3-3) 6 mmol/L (-3-3) FiO2 40 40 Phosphorus Level 3.5 mg/dL (2.6-4.7) Test 11/21/18 09:35 O2 Saturation 97 % (92-99) Arterial Blood pH 7.39 (7.35-7.45) Arterial Blood pCO2 at Patient Temp 54 mmHg (35-46) Arterial Blood pO2 at Patient Temp 98 mmHg (65-108) Arterial Blood HCO3 31 mmol/L (21-28) Arterial Blood Base Excess 5 mmol/L (-3-3) FiO2 40 Laboratory Tests Test 11/21/18 04:55 11/21/18 07:15 11/21/18 09:35 White Blood Count 12.5 x10^3/uL (4.0-11.0) Red Blood Count 3.62 x10^6/uL (3.50-5.40) Hemoglobin 10.6 g/dL (12.0-15.5) Hematocrit 32.3 % (36.0-47.0) Mean Corpuscular Volume 89 fL (79-100) Mean Corpuscular Hemoglobin 29 pg (25-35) Mean Corpuscular Hemoglobin Concent 33 g/dL (31-37) Red Cell Distribution Width 14.8 % (11.5-14.5) Platelet Count 229 x10^3/uL (140-400) Neutrophils (%) (Auto) 87 % (31-73) Lymphocytes (%) (Auto) 7 % (24-48) Monocytes (%) (Auto) 6 % (0-9) Eosinophils (%) (Auto) 0 % (0-3) Basophils (%) (Auto) 0 % (0-3) Neutrophils # (Auto) 10.9 x10^3/uL (1.8-7.7) Lymphocytes # (Auto) 0.8 x10^3/uL (1.0-4.8) Monocytes # (Auto) 0.7 x10^3/uL (0.0-1.1) Eosinophils # (Auto) 0.0 x10^3/uL (0.0-0.7) Basophils # (Auto) 0.0 x10^3/uL (0.0-0.2) Sodium Level 140 mmol/L (136-145) Potassium Level 4.1 mmol/L (3.5-5.1) Chloride Level 103 mmol/L (98-107) Carbon Dioxide Level 33 mmol/L (21-32) Anion Gap 4 (6-14) Blood Urea Nitrogen 23 mg/dL (7-20) Creatinine 0.5 mg/dL (0.6-1.0) Estimated GFR (Cockcroft-Gault) 124.2 Glucose Level 95 mg/dL (70-99) Calcium Level 9.1 mg/dL (8.5-10.1) Phosphorus Level 3.5 mg/dL (2.6-4.7) Albumin 2.7 g/dL (3.4-5.0) O2 Saturation 98 % (92-99) 97 % (92-99) Arterial Blood pH 7.45 (7.35-7.45) 7.39 (7.35-7.45) Arterial Blood pCO2 at Patient Temp 44 mmHg (35-46) 54 mmHg (35-46) Arterial Blood pO2 at Patient Temp 118 mmHg (65-108) 98 mmHg (65-108) Arterial Blood HCO3 30 mmol/L (21-28) 31 mmol/L (21-28) Arterial Blood Base Excess 6 mmol/L (-3-3) 5 mmol/L (-3-3) FiO2 40 40 Medications Active Scripts Medications Dose Route/Sig Max Daily Dose Days Date Category Guaifenesin Dm Syrup (Guaifenesin/Dextromethorphan) 5 Ml Syrup 10 Ml PO PRN Q6HRS PRN MDD 1 7 10/03/18 Rx Incruse Ellipta (Umeclidinium [place]) 62.5 Mcg Blst.w.dev 62.5 Mcg IH DAILY 07/11/17 Reported Breo Ellipta 100-25 Mcg Inh (Fluticasone/Vilanterol) 1 Each Aer.pow.ba 1 Puff IH DAILY 07/11/17 Reported Tudorza Pressair (Aclidinium [place]) 400 Mcg Aer.pow.ba 400 Mcg IH DAILY 07/11/17 Reported Comments CXR 11/20, reviewed minimal l atelectasis, ett ok Impression . 1. Cpnux-ka-heewpok hypercapnic respiratory failure secondary to acute exacerbation of chronic obstructive pulmonary disease and also shock. Re- intubated 11/16, AC mode 2. Shock, likely a combination of hypovolemic and septic shock. off levo, resolved 3. Low-grade fever POA. Source could be in the lungs, although chest x-ray does not show definite consolidation , no further fever 4. Suspect underlying severe chronic obstructive pulmonary disease with chronic hypercapnia. 5. Mild azotemia. 6. Eiwn-ah-inogmnni protein-calorie malnutrition. 7. Plan . 1. Doing well on CPAP trial today. extubate today. D/W DAUGHTER IN DETAIL. SHE AGREES WITH DNI/DNR POST EXTUBATION. SHE UNDERSTANDS THE SEVERITY OF HER COPD. 2. antibiotics. 3. Follow cultures. neg so far 4. OFF steroids 5. off Levophed .keep systolic pressure above 100. 6. Continue DuoNeb. 7. Deep venous thrombosis prophylaxis. 8. Stress ulcer prophylaxis. 9. elevate hob Discussed with RN, discussed with RT. XENA MCGRAW MD Nov 21, 2018 11:13
--- NOTE | 2018-11-21 14:13 | NUR ---
SS following up with discharge planning. Pt extubated and now on nasal cannula oxygen. Palliative care following. PT/OT currently on hold. SS will await further recommendations from palliative care and PT/OT and will proceed accordingly with discharge planning.
--- NOTE | 2018-11-21 14:18 | PDOC2 ---
PALLIATIVE CARE Palliative Care Note Palliative Care Consult requested by Dr. Lewis. Medical Assessment per medical record; metabolic encephalopathy acute hypoxia COPD with acute bronchitis exacerbation of chronic obstructive pulmonary disease shock. likely a combination of hypovolemic and septic shock. RECENT ECHO 09/24 Transmitral Doppler flow pattern is Grade I-abnormal relaxation pattern. Moderate aortic stenosis. Trace mitral regurgitation. Trace tricuspid regurgitation. The PA pressure was estimated at 36 mmHg. Small bilateral lung nodules. follow-up noncontrast chest CT SOON per Fleisch ner guidelines. MODERATE PROTEIN-CALORIC MALNUTRITION COPD changes. Superimposed mild atypical/viral infection not ruled out. cxr 11/20 Patient extubated. Alert/confused. Oriented to person only. Code Status: DNR/DNI Dr. Snider has spoke with daughter in detail. Patient will likely need PT/OT for strengthening. Will follow and support. JOANN ORNELAS Nov 21, 2018 14:18
[2018-11-22] VITALS (25 sets, daily range): BP systolic 92–144; BP diastolic 58–83
[2018-11-22] MEDS: IV NORMAL SALINE 1000ML BAG 1,000 ML IV SCH ×3 (00:31→16:04)
[2018-11-22] MEDS: IPRATRPIUM/ALBUTEROL 0.5/2.5MG 3 ML NEBU. NEB SCH ×6 (02:30→20:09)
[2018-11-22 04:46] LABS: BASO % 0 % (0-3); EOS % 0 % (0-3); HEMATOCRIT 32.2 % (36.0-47.0); HEMOGLOBIN 10.5 g/dL (12.0-15.5); LYMPH # 0.5 x10^3/uL (1.0-4.8); LYMPH % 4 % (24-48); MEAN CORPUSCULAR HEMOGLOBIN 29 pg (25-35); MEAN CORPUSCULAR HGB CONC 33 g/dL (31-37); MEAN CORPUSCULAR VOLUME 89 fL (79-100); MONO # 0.6 x10^3/uL (0.0-1.1); MONO % 5 % (0-9); NEUT # 12.2 x10^3/uL (1.8-7.7); NEUT % 91 % (31-73); PLATELET COUNT 238 x10^3/uL (140-400); RED BLOOD COUNT 3.62 x10^6/uL (3.50-5.40); RED CELL DISTRIBUTION WIDTH 14.9 % (11.5-14.5); WHITE BLOOD COUNT 13.4 x10^3/uL (4.0-11.0)
[2018-11-22 05:19] LABS: ALBUMIN 2.6 g/dL (3.4-5.0); ALBUMIN/GLOBULIN RATIO 0.9 (1.0-1.7); CALCIUM 8.7 mg/dL (8.5-10.1); CREATININE 0.5 mg/dL (0.6-1.0); GFR 124.2; POTASSIUM 3.8 mmol/L (3.5-5.1); TOTAL BILIRUBIN 0.4 mg/dL (0.2-1.0); TOTAL PROTEIN 5.4 g/dL (6.4-8.2)
[2018-11-22] MEDS: PIPERACILLIN/TAZOBACTAM 3.375 GM in IV NORMAL SALINE 50ML 50 ML IV SCH ×3 (05:45→18:02)
--- NOTE | 2018-11-22 06:41 | PDOC ---
Infectious Disease Note Subjective Subjective Doing ok. No Pain/F/C/S/SOA/N/itch -cough ROS ROS o/w neg Vital Sign Vital Signs Vital Signs Date Time Temp Pulse Resp B/P (MAP) Pulse Ox O2 Delivery O2 Flow Rate FiO2 11/22/18 06:00 80 27 137/67 (90) 97 Nasal Cannula 4.0 11/22/18 04:00 99.0 99.0 Physical Exam PHYSICAL EXAM GENERAL:NAD, Very Alert coop HEENT: Pupils equal, edentulous and clear NECK: Supple. LUNGS: Clear anteriorly HEART: S1, S2. + murmur ABDOMEN: little distended, soft, + BS : Carvalho in place EXTREMITIES: No cyanosis, 1 edema. LUE1 -2 DERMATOLOGIC: Warm, dry. No generalized rash. NEUROLOGIC: alert PIV Labs Lab Laboratory Tests Test 11/21/18 07:15 11/21/18 09:35 11/22/18 04:10 O2 Saturation 98 % (92-99) 97 % (92-99) Arterial Blood pH 7.45 (7.35-7.45) 7.39 (7.35-7.45) Arterial Blood pCO2 at Patient Temp 44 mmHg (35-46) 54 mmHg (35-46) Arterial Blood pO2 at Patient Temp 118 mmHg (65-108) 98 mmHg (65-108) Arterial Blood HCO3 30 mmol/L (21-28) 31 mmol/L (21-28) Arterial Blood Base Excess 6 mmol/L (-3-3) 5 mmol/L (-3-3) FiO2 40 40 White Blood Count 13.4 x10^3/uL (4.0-11.0) Red Blood Count 3.62 x10^6/uL (3.50-5.40) Hemoglobin 10.5 g/dL (12.0-15.5) Hematocrit 32.2 % (36.0-47.0) Mean Corpuscular Volume 89 fL (79-100) Mean Corpuscular Hemoglobin 29 pg (25-35) Mean Corpuscular Hemoglobin Concent 33 g/dL (31-37) Red Cell Distribution Width 14.9 % (11.5-14.5) Platelet Count 238 x10^3/uL (140-400) Neutrophils (%) (Auto) 91 % (31-73) Lymphocytes (%) (Auto) 4 % (24-48) Monocytes (%) (Auto) 5 % (0-9) Eosinophils (%) (Auto) 0 % (0-3) Basophils (%) (Auto) 0 % (0-3) Neutrophils # (Auto) 12.2 x10^3/uL (1.8-7.7) Lymphocytes # (Auto) 0.5 x10^3/uL (1.0-4.8) Monocytes # (Auto) 0.6 x10^3/uL (0.0-1.1) Eosinophils # (Auto) 0.0 x10^3/uL (0.0-0.7) Basophils # (Auto) 0.0 x10^3/uL (0.0-0.2) Sodium Level 143 mmol/L (136-145) Potassium Level 3.8 mmol/L (3.5-5.1) Chloride Level 104 mmol/L (98-107) Carbon Dioxide Level 35 mmol/L (21-32) Anion Gap 4 (6-14) Blood Urea Nitrogen 15 mg/dL (7-20) Creatinine 0.5 mg/dL (0.6-1.0) Estimated GFR (Cockcroft-Gault) 124.2 BUN/Creatinine Ratio 30 (6-20) Glucose Level 97 mg/dL (70-99) Calcium Level 8.7 mg/dL (8.5-10.1) Total Bilirubin 0.4 mg/dL (0.2-1.0) Aspartate Amino Transf (AST/SGOT) 23 U/L (15-37) Alanine Aminotransferase (ALT/SGPT) 86 U/L (14-59) Alkaline Phosphatase 37 U/L (46-116) Total Protein 5.4 g/dL (6.4-8.2) Albumin 2.6 g/dL (3.4-5.0) Albumin/Globulin Ratio 0.9 (1.0-1.7) Micro Microbiology 11/14/18 Blood Culture - Final, Complete NO GROWTH AFTER 5 DAYS 11/14/18 Urine Culture - Final, Complete 11/14/18 Urine Culture Result 1 (KRISTA) - Final, Complete Objective Assessment N/Vomiting - better Hypotension, questionable sepsis. - off Levophed since 11/16 leukocytosis - on steroids Acute on chronic respiratory failure.- now extubated Suspected emphysema. Moderate aortic stenosis. Encephalopathy, likely metabolic - resolved, Anxiety. Obstructive sleep apnea. Protein-calorie malnutrition. Anemia. Plan Plan of Care D/c'd empiric cefepime (11/14 - 11/21) with nausea and vomiting and expand to Zosyn for aspiration 11/21 - try to wean abx soon Steroids Cultures neg to date Supportive care. F/u labs D/w nursing GENARO PEPPER MD Nov 22, 2018 06:41
--- NOTE | 2018-11-22 08:12 | RAD ---
Single view of the chest. 11/22/2018 7:35 AM Indication: BiPAP. COPD. Comparison: Chest radiograph, November 20, 2018 Findings: Interval extubation and removal of enteric tube. No pneumothorax or pleural effusion is seen. Heart size is normal. Diffuse interstitial coarsening is similar, possibly relating to COPD. No focal infiltrate is seen. Bony thorax is grossly intact. IMPRESSION: No evidence of acute cardiopulmonary process or acute change from prior study Electronically signed by: Geremias Ponce MD (11/22/2018 8:09 AM) [id number]
[2018-11-22] MEDS ORDERED: ENOXAPARIN 40 MG/0.4 ML SYRINGE. SQ SCH (09:00)
--- NOTE | 2018-11-22 09:07 | PDOC ---
PROGRESS NOTES Chief Complaint Chief Complaint 63 old female who is an ex-smoker, admitted for COPD exacerbation, icu/// intubation History of Present Illness History of Present Illness Assessment/Plan Assessment/Plan acute hypercarbic respiratory failure, critical pH and PCO2 levels metabolic encephalopathy likely sec hypoxic insult acute hypoxia////hypercapnea COPD with acute bronchitis exacerbation of chronic obstructive pulmonary disease shock. likely a combination of hypovolemic and septic shock. RECENT ECHO 09/24 Transmitral Doppler flow pattern is Grade I-abnormal relaxation pattern. Moderate aortic stenosis. Trace mitral regurgitation. Trace tricuspid regurgitation. The PA pressure was estimated at 36 mmHg. Small bilateral lung nodules. follow-up noncontrast chest CT SOON per Fleischner guidelines. MODERATE- severe PROTEIN-CALORIC MALNUTRITION COPD changes. Superimposed mild atypical/viral infection not ruled out. cxr 11/20 POTENTIAL for silent aspiration on bedside swallow screen 11/22 confused to details thinks she is at home ICU, ATTEMPT extubation 11/20 CPAP trial today. extubate today 11/21 DNI/DNR POST EXTUBATION. pulm FOLLOWING ID following CARDIOLOGY CONSULT/// RE SHOCK, AORTIC STENOSIS Deep venous thrombosis prophylaxis. Stress ulcer prophylaxis. d/c vanc prn Levophed to keep systolic pressure above 100. cont iv zosyn Steroids iv, taper neurology consult PT/OT/ST 11/17 worsening respiratory acidosis, failed BIPAP , Re-intubated, AC mode 11/18 BLOOD CULT NEG TO DATE present assist control mode. 11/20 dnr status post extubation planned 11/21 D/c empiric cefepime 37 min CC TIME Vitals Vitals Vital Signs Date Time Temp Pulse Resp B/P (MAP) Pulse Ox O2 Delivery O2 Flow Rate FiO2 11/22/18 09:00 79 25 136/71 (92) 98 Nasal Cannula 4.0 11/22/18 08:00 98.2 98.2 Physical Exam Physical Exam GENERAL:NAD, Very Alert coop confused to location up in bedside chair HEENT: Pupils equal, edentulous and clear NECK: Supple. LUNGS: Clear anteriorly HEART: S1, S2. + murmur ABDOMEN: little distended, soft, + BS : Carvalho in place EXTREMITIES: No cyanosis, 1 edema. LUE1 -2 DERMATOLOGIC: Warm, dry. No generalized rash. NEUROLOGIC: alert watching tv PIV General: Alert, Cooperative, No acute distress, Other (confused to details) Heart: Regular rate (SR no ectopies), Other (3/6 systolic murmur to AKIN border) Lungs: Clear Abdomen: Normal bowel sounds, Soft, No tenderness Extremities: No clubbing, No cyanosis Skin: No breakdown, No significant lesion Labs LABS SPEC #: [id number] NEGRO: 11/14/18 STATUS: COMP REQ #: [id number] RECD: 11/14/[address]: JACOB VAZQUEZ DO SOURCE: URINE FOL ENTR: 11/14/[address]: JOSE RUBY MD SPDESC: INDWELLING ANDREW BLACKWOOD MD UNKNOWN PCP NAME ORDERED: URINE CULTURE - Procedure Result URINE CULTURE Final Final report URINE CULTURE RES 1 Final No growth Performed at: - [facility] [id number] [address], [place], [place] [id number] Back Panel Padder: IZABELLA Santiago MD, Phone: [phone] Laboratory Tests Test 11/21/18 09:35 11/22/18 04:10 O2 Saturation 97 % (92-99) Arterial Blood pH 7.39 (7.35-7.45) Arterial Blood pCO2 at Patient Temp 54 mmHg (35-46) Arterial Blood pO2 at Patient Temp 98 mmHg (65-108) Arterial Blood HCO3 31 mmol/L (21-28) Arterial Blood Base Excess 5 mmol/L (-3-3) FiO2 40 White Blood Count 13.4 x10^3/uL (4.0-11.0) Red Blood Count 3.62 x10^6/uL (3.50-5.40) Hemoglobin 10.5 g/dL (12.0-15.5) Hematocrit 32.2 % (36.0-47.0) Mean Corpuscular Volume 89 fL (79-100) Mean Corpuscular Hemoglobin 29 pg (25-35) Mean Corpuscular Hemoglobin Concent 33 g/dL (31-37) Red Cell Distribution Width 14.9 % (11.5-14.5) Platelet Count 238 x10^3/uL (140-400) Neutrophils (%) (Auto) 91 % (31-73) Lymphocytes (%) (Auto) 4 % (24-48) Monocytes (%) (Auto) 5 % (0-9) Eosinophils (%) (Auto) 0 % (0-3) Basophils (%) (Auto) 0 % (0-3) Neutrophils # (Auto) 12.2 x10^3/uL (1.8-7.7) Lymphocytes # (Auto) 0.5 x10^3/uL (1.0-4.8) Monocytes # (Auto) 0.6 x10^3/uL (0.0-1.1) Eosinophils # (Auto) 0.0 x10^3/uL (0.0-0.7) Basophils # (Auto) 0.0 x10^3/uL (0.0-0.2) Sodium Level 143 mmol/L (136-145) Potassium Level 3.8 mmol/L (3.5-5.1) Chloride Level 104 mmol/L (98-107) Carbon Dioxide Level 35 mmol/L (21-32) Anion Gap 4 (6-14) Blood Urea Nitrogen 15 mg/dL (7-20) Creatinine 0.5 mg/dL (0.6-1.0) Estimated GFR (Cockcroft-Gault) 124.2 BUN/Creatinine Ratio 30 (6-20) Glucose Level 97 mg/dL (70-99) Calcium Level 8.7 mg/dL (8.5-10.1) Total Bilirubin 0.4 mg/dL (0.2-1.0) Aspartate Amino Transf (AST/SGOT) 23 U/L (15-37) Alanine Aminotransferase (ALT/SGPT) 86 U/L (14-59) Alkaline Phosphatase 37 U/L (46-116) Total Protein 5.4 g/dL (6.4-8.2) Albumin 2.6 g/dL (3.4-5.0) Albumin/Globulin Ratio 0.9 (1.0-1.7) Assessment and Plan Assessmemt and Plan Problems Medical Problems: (1) Acute hypercapnic respiratory failure Status: Acute Communicated Results With: * pt & w/ Kj RN Additional Details/Impressions * Pt w/abnl phonation quality s/p ENT surgery to remove what she describes as polyp many yrs ago. States current phonation quality is shawn/stonger than prior to [facility] admit. States she normally has "no voice." Phonation now is breathy but also strained/hoarse at times and pt experiences intermittent aphonia. Pt has hx of freq. bronchitis, chronic resp. failure and multiple intubation. Pt normally eats w/ dentures in place. Pt states she thinks her dentures have been accidentally thrown in the trash while in hospital. Currently, pt demos reduced hyolaryngeal excursion, multiple swallows c/w same and frequent phonation changes post single ice chips and honey thick liquids. Though this may be part of her baseline, it also may be swallow/aspiration induced. See detailed results as outlined above. IMPRESSIONS: Possible dysphagia and/or aspiration in pt w/abnl phonation quality, hx of vocal fold surgery and frequent bronchitis. Reduced hyolaryngeal excursion and abnl phonation quality suspicious for reduced airway closure and potential for silent aspiration. RECOMMENDATIONS: Continue NPO. Will continue INTERVIEWING CLERK f/u per POC to determine safety of PO intake. Videoswallow will likely be indicated when pharyngeal swallow function appears less impaired clinically. Skilled Services Needed * Pt-Caregiver Edu/Training * Dysphagia Tx Patient Stated Goal * I want to eat again. Six Pack Packer Swallow Goal * Safe & efficient po intake w/ least restrictive diet. Swallow Goal 1 * Puree w/o s/s Aspiration Swallow Goal 2 * Honey w/o s/s Aspiration Swallow Goal 3 * Add'l goals TBD post meeting goals 1-2. Pt. Agrees with POC * Yes Communicated Pt care with (name, title) * Kj time piece repairer Potential - To Achieve Goals * Fair Discharge Recommendations * [facility] Treatment Frequency (Days/Week) * 5x/wk x 1 week Comment Review of Relevant I have reviewed the following items heaven (where applicable) has been applied. Labs Laboratory Tests Test 11/21/18 04:55 11/21/18 07:15 11/21/18 09:35 11/22/18 04:10 White Blood Count 12.5 x10^3/uL (4.0-11.0) 13.4 x10^3/uL (4.0-11.0) Red Blood Count 3.62 x10^6/uL (3.50-5.40) 3.62 x10^6/uL (3.50-5.40) Hemoglobin 10.6 g/dL (12.0-15.5) 10.5 g/dL (12.0-15.5) Hematocrit 32.3 % (36.0-47.0) 32.2 % (36.0-47.0) Mean Corpuscular Volume 89 fL (79-100) 89 fL (79-100) Mean Corpuscular Hemoglobin 29 pg (25-35) 29 pg (25-35) Mean Corpuscular Hemoglobin Concent 33 g/dL (31-37) 33 g/dL (31-37) Red Cell Distribution Width 14.8 % (11.5-14.5) 14.9 % (11.5-14.5) Platelet Count 229 x10^3/uL (140-400) 238 x10^3/uL (140-400) Neutrophils (%) (Auto) 87 % (31-73) 91 % (31-73) Lymphocytes (%) (Auto) 7 % (24-48) 4 % (24-48) Monocytes (%) (Auto) 6 % (0-9) 5 % (0-9) Eosinophils (%) (Auto) 0 % (0-3) 0 % (0-3) Basophils (%) (Auto) 0 % (0-3) 0 % (0-3) Neutrophils # (Auto) 10.9 x10^3/uL (1.8-7.7) 12.2 x10^3/uL (1.8-7.7) Lymphocytes # (Auto) 0.8 x10^3/uL (1.0-4.8) 0.5 x10^3/uL (1.0-4.8) Monocytes # (Auto) 0.7 x10^3/uL (0.0-1.1) 0.6 x10^3/uL (0.0-1.1) Eosinophils # (Auto) 0.0 x10^3/uL (0.0-0.7) 0.0 x10^3/uL (0.0-0.7) Basophils # (Auto) 0.0 x10^3/uL (0.0-0.2) 0.0 x10^3/uL (0.0-0.2) Sodium Level 140 mmol/L (136-145) 143 mmol/L (136-145) Potassium Level 4.1 mmol/L (3.5-5.1) 3.8 mmol/L (3.5-5.1) Chloride Level 103 mmol/L (98-107) 104 mmol/L (98-107) Carbon Dioxide Level 33 mmol/L (21-32) 35 mmol/L (21-32) Anion Gap 4 (6-14) 4 (6-14) Blood Urea Nitrogen 23 mg/dL (7-20) 15 mg/dL (7-20) Creatinine 0.5 mg/dL (0.6-1.0) 0.5 mg/dL (0.6-1.0) Estimated GFR (Cockcroft-Gault) 124.2 124.2 Glucose Level 95 mg/dL (70-99) 97 mg/dL (70-99) Calcium Level 9.1 mg/dL (8.5-10.1) 8.7 mg/dL (8.5-10.1) Phosphorus Level 3.5 mg/dL (2.6-4.7) Albumin 2.7 g/dL (3.4-5.0) 2.6 g/dL (3.4-5.0) O2 Saturation 98 % (92-99) 97 % (92-99) Arterial Blood pH 7.45 (7.35-7.45) 7.39 (7.35-7.45) Arterial Blood pCO2 at Patient Temp 44 mmHg (35-46) 54 mmHg (35-46) Arterial Blood pO2 at Patient Temp 118 mmHg (65-108) 98 mmHg (65-108) Arterial Blood HCO3 30 mmol/L (21-28) 31 mmol/L (21-28) Arterial Blood Base Excess 6 mmol/L (-3-3) 5 mmol/L (-3-3) FiO2 40 40 BUN/Creatinine Ratio 30 (6-20) Total Bilirubin 0.4 mg/dL (0.2-1.0) Aspartate Amino Transf (AST/SGOT) 23 U/L (15-37) Alanine Aminotransferase (ALT/SGPT) 86 U/L (14-59) Alkaline Phosphatase 37 U/L (46-116) Total Protein 5.4 g/dL (6.4-8.2) Albumin/Globulin Ratio 0.9 (1.0-1.7) Laboratory Tests Test 11/21/18 09:35 11/22/18 04:10 O2 Saturation 97 % (92-99) Arterial Blood pH 7.39 (7.35-7.45) Arterial Blood pCO2 at Patient Temp 54 mmHg (35-46) Arterial Blood pO2 at Patient Temp 98 mmHg (65-108) Arterial Blood HCO3 31 mmol/L (21-28) Arterial Blood Base Excess 5 mmol/L (-3-3) FiO2 40 White Blood Count 13.4 x10^3/uL (4.0-11.0) Red Blood Count 3.62 x10^6/uL (3.50-5.40) Hemoglobin 10.5 g/dL (12.0-15.5) Hematocrit 32.2 % (36.0-47.0) Mean Corpuscular Volume 89 fL (79-100) Mean Corpuscular Hemoglobin 29 pg (25-35) Mean Corpuscular Hemoglobin Concent 33 g/dL (31-37) Red Cell Distribution Width 14.9 % (11.5-14.5) Platelet Count 238 x10^3/uL (140-400) Neutrophils (%) (Auto) 91 % (31-73) Lymphocytes (%) (Auto) 4 % (24-48) Monocytes (%) (Auto) 5 % (0-9) Eosinophils (%) (Auto) 0 % (0-3) Basophils (%) (Auto) 0 % (0-3) Neutrophils # (Auto) 12.2 x10^3/uL (1.8-7.7) Lymphocytes # (Auto) 0.5 x10^3/uL (1.0-4.8) Monocytes # (Auto) 0.6 x10^3/uL (0.0-1.1) Eosinophils # (Auto) 0.0 x10^3/uL (0.0-0.7) Basophils # (Auto) 0.0 x10^3/uL (0.0-0.2) Sodium Level 143 mmol/L (136-145) Potassium Level 3.8 mmol/L (3.5-5.1) Chloride Level 104 mmol/L (98-107) Carbon Dioxide Level 35 mmol/L (21-32) Anion Gap 4 (6-14) Blood Urea Nitrogen 15 mg/dL (7-20) Creatinine 0.5 mg/dL (0.6-1.0) Estimated GFR (Cockcroft-Gault) 124.2 BUN/Creatinine Ratio 30 (6-20) Glucose Level 97 mg/dL (70-99) Calcium Level 8.7 mg/dL (8.5-10.1) Total Bilirubin 0.4 mg/dL (0.2-1.0) Aspartate Amino Transf (AST/SGOT) 23 U/L (15-37) Alanine Aminotransferase (ALT/SGPT) 86 U/L (14-59) Alkaline Phosphatase 37 U/L (46-116) Total Protein 5.4 g/dL (6.4-8.2) Albumin 2.6 g/dL (3.4-5.0) Albumin/Globulin Ratio 0.9 (1.0-1.7) Microbiology 11/14/18 Blood Culture - Final, Complete NO GROWTH AFTER 5 DAYS 11/14/18 Urine Culture - Final, Complete 11/14/18 Urine Culture Result 1 (KRISTA) - Final, Complete Medications Current Medications Methylprednisolone Sodium Succinate (SOLU-Medrol 125MG VIAL) 125 mg 1X ONCE IV Last administered on 11/14/18at 17:14; Start 11/14/18 at 16:45; Stop 11/14/18 at 16:46; Status DC Albuterol/ Ipratropium (Duoneb) 3 ml 1X ONCE NEB Last administered on 11/14/18at 17:04; Start 11/14/18 at 16:45; Stop 11/14/18 at 16:46; Status DC Ondansetron HCl (Zofran) 4 mg 1X ONCE IV Last administered on 11/14/18at 17:13; Start 11/14/18 at 17:00; Stop 11/14/18 at 17:01; Status DC Propofol 0 ml @ As Directed STK-MED ONCE IV ; Start 11/14/18 at 18:09; Stop 11/14/18 at 18:10; Status DC Etomidate (Amidate) 20 mg STK-MED ONCE IV ; Start 11/14/18 at 18:17; Stop 11/14/18 at 18:18; Status DC Rocuronium [place] (Zemuron) 50 mg STK-MED ONCE .ROUTE ; Start 11/14/18 at 18:17; Stop 11/14/18 at 18:18; Status DC Propofol 100 ml @ 0 mls/hr CONT PRN IV SEE PROTOCOL Last administered on 11/14/18at 18:00; Start 11/14/18 at 18:30; Stop 11/15/18 at 07:38; Status DC Chlorhexidine Gluconate (Peridex) 15 ml BID MM ; Start 11/14/18 at 21:00; Stop 11/15/18 at 16:12; Status DC Midazolam HCl 100 ml @ 0 mls/hr CONT PRN IV SEE PROTOCOL; Start 11/14/18 at 18:30; Stop 11/14/18 at 20:14; Status DC Cefepime HCl (Maxipime) 2 gm Q12HR IVP Last administered on 11/20/18at 20:52; Start 11/14/18 at 18:27; Stop 11/21/18 at 07:30; Status DC Azithromycin 250 ml @ 250 mls/hr 1X ONCE IV Last administered on 11/14/18at 22:56; Start 11/14/18 at 18:30; Stop 11/14/18 at 19:29; Status DC Vancomycin HCl (Vanco Per Pharmacy) 1 each PRN DAILY PRN MC SEE COMMENTS Last administered on 11/15/18at 10:17; Start 11/14/18 at 18:30; Stop 11/16/18 at 08:07; Status DC Propofol 50 ml @ 0 mls/hr 1X ONCE IV ; Start 11/14/18 at 18:30; Stop 11/14/18 at 18:31; Status DC Etomidate (Amidate) 20 mg 1X ONCE IV Last administered on 11/14/18at 18:11; Start 11/14/18 at 18:30; Stop 11/14/18 at 18:31; Status DC Rocuronium [place] (Zemuron) 50 mg 1X ONCE IV Last administered on 11/14/18at 18:11; Start 11/14/18 at 18:30; Stop 11/14/18 at 18:31; Status DC Sodium Chloride 1,000 ml @ 1,000 mls/hr 1X ONCE IV Last administered on 11/14/18at 18:11; Start 11/14/18 at 18:30; Stop 11/14/18 at 19:29; Status DC Vancomycin HCl 1.75 gm/Sodium Chloride 500 ml @ 250 mls/hr 1X ONCE IV Last administered on 11/14/18at 21:00; Start 11/14/18 at 19:00; Stop 11/14/18 at 20:59; Status DC Midazolam HCl 100 ml @ 5 mls/hr CONT PRN IV SEE I/O RECORD Last administered on 11/15/18at 06:05; Start 11/14/18 at 20:30; Stop 11/16/18 at 12:47; Status DC Sodium Chloride 1,000 ml @ 1,000 mls/hr 1X ONCE IV Last administered on 11/14/18at 21:07; Start 11/14/18 at 21:00; Stop 11/14/18 at 21:59; Status DC Methylprednisolone Sodium Succinate (SOLU-Medrol 125MG VIAL) 125 mg Q12HR IV Last administered on 11/19/18at 08:54; Start 11/15/18 at 09:00; Stop 11/19/18 at 10:15; Status DC Albuterol/ Ipratropium (Duoneb) 3 ml Q4HRS NEB ; Start 11/15/18 at 00:00; Status Cancel Sodium Chloride 1,000 ml @ 75 mls/hr [id number] IV Last administered on 11/22/18at 00:31; Start 11/14/18 at 22:00 Sodium Chloride 1,000 ml @ 999 mls/hr 1X ONCE IV ; Start 11/14/18 at 20:45; Stop 11/14/18 at 21:45; Status UNV Albuterol/ Ipratropium (Duoneb) 3 ml RTQID NEB ; Start 11/15/18 at 08:00; Stop 11/15/18 at 08:00; Status DC Albuterol Sulfate (Ventolin Neb Soln) 2.5 mg PRN Q4HRS PRN NEB SHORTNESS OF LOU ATH Last administered on 11/15/18at 20:23; Start 11/14/18 at 20:45 Norepinephrine Bitartrate 250 ml @ 1.875 mls/ hr CONT PRN IV SEE I/O RECORD Last administered on 11/15/18at 02:33; Start 11/14/18 at 22:30; Stop 11/16/18 at 12:47; Status DC Sodium Chloride 1,000 ml @ 999 mls/hr 1X ONCE IV Last administered on 11/14/18at 22:55; Start 11/14/18 at 23:00; Stop 11/15/18 at 00:00; Status DC Albuterol/ Ipratropium (Duoneb) 3 ml Q4HRS NEB Last administered on 11/22/18at 08:58; Start 11/15/18 at 00:00 Vancomycin HCl 1 gm/Sodium Chloride 250 ml @ 250 mls/hr Q12H IV Last administered on 11/15/18at 09:53; Start 11/15/18 at 09:00; Stop 11/15/18 at 12:00; Status DC Vancomycin HCl (Vancomycin Trough Level) 1 each 1X ONCE MC ; Start 11/16/18 at 20:30; Stop 11/16/18 at 20:31; Status Cancel Fentanyl Citrate 30 ml @ 0 mls/hr CONT PRN IV SEE PROTOCOL Last administered on 11/16/18at 04:50; Start 11/15/18 at 07:45; Stop 11/16/18 at 12:47; Status DC Sodium Chloride 1,000 ml @ 1,000 mls/hr 1X ONCE IV Last administered on 7/1 0/19at 09:54; Start 11/15/18 at 09:15; Stop 11/15/18 at 10:14; Status DC Famotidine (Pepcid Vial) 20 mg BID IVP Last administered on 11/21/18 20:31; Start 11/15/18 at 10:00 Enoxaparin Sodium (Lovenox Per Pharmacy Prophylaxis Dosing) 1 each DAILY MC Las t administered on 11/17/18 09:00; Start 11/16/18 at 09:00; Stop 11/21/18 at 13:17; Status DC Enoxaparin Sodium (Lovenox 40mg Syringe) 40 mg Q24H SQ Last administered on 11/21/18 08:02; Start 11/15/18 at 10:00 Vancomycin HCl 1 gm/Sodium Chloride 250 ml @ 250 mls/hr Q18H IV Last administered on 11/16/18 03:01; Start 11/16/18 at 03:00; Stop 11/16/18 at 08:06; Status DC Lorazepam (Ativan Inj) 2 mg PRN Q4HRS PRN IV ANXIETY / AGITATION Last administered on 11/16/18 15:28; Start 11/15/18 at 12:45; Stop 11/21/18 at 13:17; Status DC Propofol 100 ml @ 0 mls/hr CONT PRN IV SEE PROTOCOL Last administered on 11/16/18 04:48; Start 11/15/18 at 16:15; Stop 11/16/18 at 12:47; Status DC Flumazenil (Romazicon) 0.1 mg 1X ONCE IV Last administered on 11/16/18at 16:46; Start 11/16/18 at 16:45; Stop 11/16/18 at 16:46; Status DC Flumazenil (Romazicon) 0.1 mg 1X ONCE IV Last administered on 11/16/18 17:49; Start 11/16/18 at 17:45; Stop 11/16/18 at 17:49; Status DC Propofol 100 ml @ As Directed STK-MED ONCE IV ; Start 11/16/18 at 20:46; Stop 11/16/18 at 20:47; Status DC Propofol 100 ml @ 1.145 mls/ hr CONT PRN IV SEE I/O RECORD Last administered on 7/15/19at 08:17; Start 11/17/18 at 02:30; Stop 11/21/18 at 13:17; Status DC Fentanyl Citrate (Fentanyl 2ml Vial) 50 mcg PRN Q2HR PRN IV PAIN Last administered on 11/17/18at 02:41; Start 11/17/18 at 02:30; Stop 11/21/18 at 13:17; Status DC Fentanyl Citrate 30 ml @ 0 mls/hr CONT PRN IV SEE PROTOCOL Last administered on 11/20/18at 06:39; Start 11/17/18 at 07:15; Stop 11/21/18 at 13:17; Status DC Dextrose (Dextrose 50%-Water Syringe) 12.5 gm PRN Q15MIN PRN IV SEE COMMENTS; Start 11/17/18 at 11:30; Stop 11/21/18 at 13:17; Status DC Propofol (Diprivan) 200 mg STK-MED ONCE IV ; Start 11/16/18 at 12:00; Stop 11/17/18 at 15:00; Status DC Rocuronium [place] (Zemuron) 50 mg STK-MED ONCE .ROUTE ; Start 11/16/18 at 12:00; Stop 11/17/18 at 15:00; Status DC Methylprednisolone Sodium Succinate (SOLU-Medrol 40MG VIAL) 40 mg Q12HR IV Last administered on 11/21/18at 20:30; Start 11/19/18 at 21:00 Piperacillin Sod/ Tazobactam Sod 3.375 gm/Sodium Chloride 50 ml @ 100 mls/hr Q6HRS IV Last administered on 11/22/18at 05:45; Start 11/21/18 at 08:00 Ondansetron HCl (Zofran) 4 mg PRN Q6HRS PRN IV NAUSEA/VOMITING Last administered on 11/21/18at 07:57; Start 11/21/18 at 08:00 Enoxaparin Sodium (Lovenox 40mg Syringe) 40 mg Q24H SQ ; Start 11/22/18 at 09:00; Status UNV Active Scripts Active Guaifenesin Dm Syrup (Guaifenesin/Dextromethorphan) 5 Ml Syrup 10 Ml PO PRN Q6HRS PRN MDD 1 7 Days Reported Prednisone (Prednisone) 10 Mg Tablet 10 Mg PO DAILY Fluoxetine Hcl 20 Mg Capsule 20 Mg PO DAILY Incruse Ellipta (Umeclidinium [place]) 62.5 Mcg Blst.w.dev 62.5 Mcg IH DAILY Breo Ellipta 100-25 Mcg Inh (Fluticasone/Vilanterol) 1 Each Aer.pow.ba 1 Puff IH DAILY Tudorza Pressair (Aclidinium [place]) 400 Mcg Aer.pow.ba 400 Mcg IH DAILY Vitals/I & O Vital Sign - Last 24 Hours 11/21/18 11/21/18 11/21/18 11/21/18 10:00 11:00 11:10 11:17 Pulse 66 79 Resp 18 28 B/P (MAP) 120/64 (82) 131/71 (91) Pulse Ox 99 99 98 O2 Delivery Ventilator Ventilator Nasal Cannula Nasal Cannula O2 Flow Rate 4.0 4.0 11/21/18 11/21/18 11/21/18 11/21/18 12:00 12:00 13:00 14:00 Pulse 92 88 80 Resp 24 26 25 B/P (MAP) 106/57 (73) 100/57 (71) 102/59 (73) Pulse Ox 93 97 99 O2 Delivery Nasal Cannula Nasal Cannula Nasal Cannula Nasal Cannula O2 Flow Rate 4.0 4.0 4.0 4.0 11/21/18 11/21/18 11/21/18 11/21/18 15:00 15:19 16:00 16:00 Temp 98.5 98.5 Pulse 80 90 Resp 32 27 B/P (MAP) 92/52 (65) 105/57 (73) Pulse Ox 99 99 97 O2 Delivery Nasal Cannula Nasal Cannula Nasal Cannula Nasal Cannula O2 Flow Rate 4.0 4.0 4.0 4.0 11/21/18 11/21/18 11/21/18 11/21/18 17:00 18:00 19:00 19:58 Pulse 77 77 81 Resp 18 21 19 B/P (MAP) 112/67 (82) 120/65 (83) 99/60 (73) Pulse Ox 99 98 98 98 O2 Delivery Nasal Cannula Nasal Cannula Nasal Cannula Nasal Cannula O2 Flow Rate 4.0 4.0 4.0 4.0 11/21/18 11/21/18 11/21/18 11/21/18 20:00 20:00 21:00 22:00 Temp 98.3 98.3 Pulse 85 83 78 Resp 22 24 22 B/P (MAP) 119/61 (80) 115/62 (79) 117/61 (79) Pulse Ox 94 95 99 O2 Delivery Nasal Cannula Nasal Cannula Nasal Cannula BiPAP/CPAP O2 Flow Rate 4.0 4.0 4.0 11/21/18 11/21/18 11/22/18 11/22/18 23:00 23:59 00:00 00:00 Temp 98.7 98.7 Pulse 70 80 Resp 24 26 B/P (MAP) 120/75 (90) 133/70 (91) Pulse Ox 98 98 99 O2 Delivery BiPAP/CPAP Bi-pap BiPAP/CPAP BiPAP/CPAP 11/22/18 11/22/18 11/22/18 11/22/18 01:00 02:00 02:30 03:00 Pulse 82 89 84 Resp 23 26 B/P (MAP) 111/65 (80) 134/72 (92) 118/65 (82) Pulse Ox 97 97 96 97 O2 Delivery BiPAP/CPAP BiPAP/CPAP BiPAP/CPAP BiPAP/CPAP 11/22/18 11/22/18 11/22/18 11/22/18 04:00 04:00 05:00 05:20 Temp 99.0 99.0 Pulse 77 68 Resp 28 B/P (MAP) 119/59 (79) 132/70 (90) Pulse Ox 97 99 99 O2 Delivery BiPAP/CPAP Nasal Cannula BiPAP/CPAP BiPAP/CPAP O2 Flow Rate 4.0 11/22/18 11/22/18 11/22/18 11/22/18 06:00 07:00 08:00 09:00 Temp 98.2 98.2 Pulse 80 85 87 79 Resp 27 26 21 25 B/P (MAP) 137/67 (90) 105/58 (74) 113/72 (86) 136/71 (92) Pulse Ox 97 95 95 98 O2 Delivery Nasal Cannula Nasal Cannula Nasal Cannula Nasal Cannula O2 Flow Rate 4.0 4.0 4.0 4.0 Intake and Output 11/21/18 11/21/18 11/22/18 15:00 23:00 07:00 Intake Total 50 ml 50 ml 1907.58 ml Output Total 1625 ml 785 ml 880 ml Balance -1575 ml -735 ml 1027.58 ml FULBRIGHT,VON W MD Nov 22, 2018 09:07
[2018-11-22 09:11] LABS: BASE EXCESS ABG 6 mmol/L (-3-3); HCO3 ABG 33 mmol/L (21-28); PO2 ABG 86 mmHg (65-108); SAT O2 ABG 96 % (92-99)
[2018-11-22] MEDS: methylPREDNISolone SOD SUCC PF 40 MG/ML VIAL. IV SCH ×2 (09:53→21:18)
[2018-11-22] MEDS: ENOXAPARIN 40 MG/0.4 ML SYRINGE. SQ SCH (09:53)
[2018-11-22] MEDS: FAMOTIDINE 20 MG/2 ML VIAL IVP SCH ×2 (09:53→21:18)
[2018-11-22] MEDS: MULTIVITAMIN with MINERAL TABLET. PO SCH (11:30)
--- NOTE | 2018-11-22 12:41 | PDOC ---
PULMONARY PROGRESS NOTES Subjective extubated yesterday had some soa this am Vitals Vital Signs Date Time Temp Pulse Resp B/P (MAP) Pulse Ox O2 Delivery O2 Flow Rate FiO2 11/22/18 12:25 93 Nasal Cannula 4.0 11/22/18 11:00 86 21 110/65 (80) 11/22/18 08:00 98.2 98.2 General: Alert HEENT: Other (nc at perrl nose clear orally intubated neck no lad, no t hyromegaly) Lungs: Clear Cardiovascular: S1, S2 Abdomen: Soft, Non-tender, Other (no mass) Neuro Exam: Alert Extremities: No Edema Skin: Warm Labs Laboratory Tests Test 11/21/18 04:55 11/21/18 07:15 11/21/18 09:35 11/22/18 04:10 White Blood Count 12.5 x10^3/uL (4.0-11.0) 13.4 x10^3/uL (4.0-11.0) Red Blood Count 3.62 x10^6/uL (3.50-5.40) 3.62 x10^6/uL (3.50-5.40) Hemoglobin 10.6 g/dL (12.0-15.5) 10.5 g/dL (12.0-15.5) Hematocrit 32.3 % (36.0-47.0) 32.2 % (36.0-47.0) Mean Corpuscular Volume 89 fL (79-100) 89 fL (79-100) Mean Corpuscular Hemoglobin 29 pg (25-35) 29 pg (25-35) Mean Corpuscular Hemoglobin Concent 33 g/dL (31-37) 33 g/dL (31-37) Red Cell Distribution Width 14.8 % (11.5-14.5) 14.9 % (11.5-14.5) Platelet Count 229 x10^3/uL (140-400) 238 x10^3/uL (140-400) Neutrophils (%) (Auto) 87 % (31-73) 91 % (31-73) Lymphocytes (%) (Auto) 7 % (24-48) 4 % (24-48) Monocytes (%) (Auto) 6 % (0-9) 5 % (0-9) Eosinophils (%) (Auto) 0 % (0-3) 0 % (0-3) Basophils (%) (Auto) 0 % (0-3) 0 % (0-3) Neutrophils # (Auto) 10.9 x10^3/uL (1.8-7.7) 12.2 x10^3/uL (1.8-7.7) Lymphocytes # (Auto) 0.8 x10^3/uL (1.0-4.8) 0.5 x10^3/uL (1.0-4.8) Monocytes # (Auto) 0.7 x10^3/uL (0.0-1.1) 0.6 x10^3/uL (0.0-1.1) Eosinophils # (Auto) 0.0 x10^3/uL (0.0-0.7) 0.0 x10^3/uL (0.0-0.7) Basophils # (Auto) 0.0 x10^3/uL (0.0-0.2) 0.0 x10^3/uL (0.0-0.2) Sodium Level 140 mmol/L (136-145) 143 mmol/L (136-145) Potassium Level 4.1 mmol/L (3.5-5.1) 3.8 mmol/L (3.5-5.1) Chloride Level 103 mmol/L (98-107) 104 mmol/L (98-107) Carbon Dioxide Level 33 mmol/L (21-32) 35 mmol/L (21-32) Anion Gap 4 (6-14) 4 (6-14) Blood Urea Nitrogen 23 mg/dL (7-20) 15 mg/dL (7-20) Creatinine 0.5 mg/dL (0.6-1.0) 0.5 mg/dL (0.6-1.0) Estimated GFR (Cockcroft-Gault) 124.2 124.2 Glucose Level 95 mg/dL (70-99) 97 mg/dL (70-99) Calcium Level 9.1 mg/dL (8.5-10.1) 8.7 mg/dL (8.5-10.1) Phosphorus Level 3.5 mg/dL (2.6-4.7) Albumin 2.7 g/dL (3.4-5.0) 2.6 g/dL (3.4-5.0) O2 Saturation 98 % (92-99) 97 % (92-99) Arterial Blood pH 7.45 (7.35-7.45) 7.39 (7.35-7.45) Arterial Blood pCO2 at Patient Temp 44 mmHg (35-46) 54 mmHg (35-46) Arterial Blood pO2 at Patient Temp 118 mmHg (65-108) 98 mmHg (65-108) Arterial Blood HCO3 30 mmol/L (21-28) 31 mmol/L (21-28) Arterial Blood Base Excess 6 mmol/L (-3-3) 5 mmol/L (-3-3) FiO2 40 40 BUN/Creatinine Ratio 30 (6-20) Total Bilirubin 0.4 mg/dL (0.2-1.0) Aspartate Amino Transf (AST/SGOT) 23 U/L (15-37) Alanine Aminotransferase (ALT/SGPT) 86 U/L (14-59) Alkaline Phosphatase 37 U/L (46-116) Total Protein 5.4 g/dL (6.4-8.2) Albumin/Globulin Ratio 0.9 (1.0-1.7) Laboratory Tests Test 11/22/18 04:10 White Blood Count 13.4 x10^3/uL (4.0-11.0) Red Blood Count 3.62 x10^6/uL (3.50-5.40) Hemoglobin 10.5 g/dL (12.0-15.5) Hematocrit 32.2 % (36.0-47.0) Mean Corpuscular Volume 89 fL (79-100) Mean Corpuscular Hemoglobin 29 pg (25-35) Mean Corpuscular Hemoglobin Concent 33 g/dL (31-37) Red Cell Distribution Width 14.9 % (11.5-14.5) Platelet Count 238 x10^3/uL (140-400) Neutrophils (%) (Auto) 91 % (31-73) Lymphocytes (%) (Auto) 4 % (24-48) Monocytes (%) (Auto) 5 % (0-9) Eosinophils (%) (Auto) 0 % (0-3) Basophils (%) (Auto) 0 % (0-3) Neutrophils # (Auto) 12.2 x10^3/uL (1.8-7.7) Lymphocytes # (Auto) 0.5 x10^3/uL (1.0-4.8) Monocytes # (Auto) 0.6 x10^3/uL (0.0-1.1) Eosinophils # (Auto) 0.0 x10^3/uL (0.0-0.7) Basophils # (Auto) 0.0 x10^3/uL (0.0-0.2) Sodium Level 143 mmol/L (136-145) Potassium Level 3.8 mmol/L (3.5-5.1) Chloride Level 104 mmol/L (98-107) Carbon Dioxide Level 35 mmol/L (21-32) Anion Gap 4 (6-14) Blood Urea Nitrogen 15 mg/dL (7-20) Creatinine 0.5 mg/dL (0.6-1.0) Estimated GFR (Cockcroft-Gault) 124.2 BUN/Creatinine Ratio 30 (6-20) Glucose Level 97 mg/dL (70-99) Calcium Level 8.7 mg/dL (8.5-10.1) Total Bilirubin 0.4 mg/dL (0.2-1.0) Aspartate Amino Transf (AST/SGOT) 23 U/L (15-37) Alanine Aminotransferase (ALT/SGPT) 86 U/L (14-59) Alkaline Phosphatase 37 U/L (46-116) Total Protein 5.4 g/dL (6.4-8.2) Albumin 2.6 g/dL (3.4-5.0) Albumin/Globulin Ratio 0.9 (1.0-1.7) Medications Active Scripts Medications Dose Route/Sig Max Daily Dose Days Date Category Guaifenesin Dm Syrup (Guaifenesin/Dextromethorphan) 5 Ml Syrup 10 Ml PO PRN Q6HRS PRN MDD 1 7 10/03/18 Rx Incruse Ellipta (Umeclidinium [place]) 62.5 Mcg Blst.w.dev 62.5 Mcg IH DAILY 07/11/17 Reported Breo Ellipta 100-25 Mcg Inh (Fluticasone/Vilanterol) 1 Each Aer.pow.ba 1 Puff IH DAILY 07/11/17 Reported Tudorza Pressair (Aclidinium [place]) 400 Mcg Aer.pow.ba 400 Mcg IH DAILY 07/11/17 Reported Comments CXR 11/20, reviewed minimal l atelectasis, ett ok Impression . 1. [id number] hypercapnic respiratory failure secondary to acute exacerbation of chronic obstructive pulmonary disease and also shock. Re- intubated 11/16, extubated 11/21 2. Shock, likely a combination of hypovolemic and septic shock. off levo, res olved 3. Low-grade fever POA. Source could be in the lungs, although chest x-ray does not show definite consolidation , no further fever 4. Suspect underlying severe chronic obstructive pulmonary disease with chronic hypercapnia. 5. Mild azotemia. 6. [id number] protein-calorie malnutrition. 7. Plan . 1. Will use prn BIPAP for dyspnea. ABG adequate. d/w RN 2. antibiotics. 3. Follow cultures. neg so far 4. OFF steroids 5. off Levophed .keep systolic pressure above 100. 6. Continue DuoNeb. 7. Deep venous thrombosis prophylaxis. 8. Stress ulcer prophylaxis. 9. elevate hob Discussed with RN, DNR/ALVAREZI XENA MCGRAW MD Nov 22, 2018 12:41
[2018-11-22 12:54] LABS: FIO2 ABG 32; PCO2 ABG 60 mmHg (35-46)
--- NOTE | 2018-11-22 14:04 | PDOC2 ---
PALLIATIVE CARE Palliative Care Note Palliative Care Received call from daughter Tiana. She is concerned that her sister has made the decision about resuscitation and did not include her siblings and patient's . Also does not feel her mother has the cognitive ability to make those decisions. Patient sitting up in chair. Oriented to person and place. States she would not want the tube replaced if she were unable to breath. Offered family meeting when talking with Tiana. Meeting tomorrow at 1030am to review medical condition and decisions about resuscitation. JOANN ORNELAS Nov 22, 2018 14:04
--- NOTE | 2018-11-22 18:26 | PDOC2 ---
NEUROLOGY CONSULT Date of Admission Date of Admission DATE: 11/22/18 TIME: 18:11 Reason for Consult Reason for Consult: IMPRESSION: Anisocoria. Hallucination, visual. Delusion. Confusion. Metabolic encephalopathy. Respiratory failure. COPD, maybe end stage. UTI. CHF. Cognitive impairment. Obesity. Longstanding history of smoking. RECOMMENDATIONS/PLAN: Brain MRI w/o contrast. EEG maybe needed. Lab: see orders. Treat medical diseases. Discussed with her daughter at bedside in ICU on 11/22/17. HISTORY OF THE PRESENT ILLNESS: This is a 63-year-old female patient with longstanding history of smoking for more than 30 years, COPD, respiratory failure with weakness and dyspnea and confusion. She was hospitalized for further evaluation and treatment on 11/14/18. Neurology was requested for consultation for her visual hallucinations as seeing a cat in room, and she also had delusion saying airplane crashed. Past Medical History COPD Past Surgical History No major surgery recently. Family History Hypertension ALLERGY: NKDA MEDICATIONS: Refer to [facility] SOCIAL HISTORY: Denies illicit drug use. She smoked 1 pack of cigarettes a day for more than 30 years but quit recently. She drinks alcohol occasionally. REVIEW OF SYSTEMS: Constitutional: No malnutrition, weight loss, cachexia. Head: No traumatic brain or head injury. Skin: No edema, or rash. Ear: No infection. Eyes: No vision loss or color blindness. Nose: No bleeding or purulent discharges. Hearing: Hearing decrease. Neck: No injury. Breast: No history of cancer, masses,or discharges. Cardiac: No PA, arrhythmia. Pulmonary: COPD. GI: No GI ulcer, GI bleeding. Urinary/genital: UTI. Endocrinologic: No cousin face, craniofacial dysmorphism. Skeletomuscular: No muscular atrophy, deformity. Neurological: see HP. Psychiatric: Denies drug use/abuse. Otherwise, not [id number] review of systems. PHYSICAL EXAMINATION: General appearance is in subacute distress. HEENT: Normocephalic and nontraumatic. Eyes, nose, ears, and throat are unremarkable. Neck is supple. No lymphadenopathy. No crepitus. Cardiovascular: S1, S2, regular rate and rhythm. Pulmonary: Breath sounds decreased to auscultation bilaterally. Abdomen: Bowel sounds are positive. Extremities: No rash, lesions, or edema. No restriction of range of motion NEUROLOGICAL EXAMINATION: Awake. Not oriented to time, but new place and person. Right pupil 1.5 mm, left 2-3 mm, both reaction to light stimuli but left side not as sensitive as right one. EOMI. CN: no focal findings. Muscle tone: within normal. Muscle strength: 5- DTR: 1-2 Plantar reflex: Neutral response bilaterally Gait: not examined in bed. Sensory exam: no abnormal findings. No other cerebellar signs elicited. F-T-N test not accurate on left hand Current Medications Current Medications Current Medications Methylprednisolone Sodium Succinate (SOLU-Medrol 125MG VIAL) 125 mg 1X ONCE IV Last administered on 11/14/18at 17:14; Start 11/14/18 at 16:45; Stop 11/14/18 at 16:46; Status DC Albuterol/ Ipratropium (Duoneb) 3 ml 1X ONCE NEB Last administered on 11/14/18at 17:04; Start 11/14/18 at 16:45; Stop 11/14/18 at 16:46; Status DC Ondansetron HCl (Zofran) 4 mg 1X ONCE IV Last administered on 11/14/18at 17:13; Start 11/14/18 at 17:00; Stop 11/14/18 at 17:01; Status DC Propofol 0 ml @ As Directed STK-MED ONCE IV ; Start 11/14/18 at 18:09; Stop 11/14/18 at 18:10; Status DC Etomidate (Amidate) 20 mg STK-MED ONCE IV ; Start 11/14/18 at 18:17; Stop 11/14/18 at 18:18; Status DC Rocuronium Hagerman (Zemuron) 50 mg STK-MED ONCE .ROUTE ; Start 11/14/18 at 18:17; Stop 11/14/18 at 18:18; Status DC Propofol 100 ml @ 0 mls/hr CONT PRN IV SEE PROTOCOL Last administered on 11/14/18at 18:00; Start 11/14/18 at 18:30; Stop 11/15/18 at 07:38; Status DC Chlorhexidine Gluconate (Peridex) 15 ml BID MM ; Start 11/14/18 at 21:00; Stop 11/15/18 at 16:12; Status DC Midazolam HCl 100 ml @ 0 mls/hr CONT PRN IV SEE PROTOCOL; Start 11/14/18 at 18:30; Stop 11/14/18 at 20:14; Status DC Cefepime HCl (Maxipime) 2 gm Q12HR IVP Last administered on 11/20/18at 20:52; Start 11/14/18 at 18:27; Stop 11/21/18 at 07:30; Status DC Azithromycin 250 ml @ 250 mls/hr 1X ONCE IV Last administered on 11/14/18 22:56; Start 11/14/18 at 18:30; Stop 11/14/18 at 19:29; Status DC Vancomycin HCl (Vanco Per Pharmacy) 1 each PRN DAILY PRN MC SEE COMMENTS Last administered on 11/15/18at 10:17; Start 11/14/18 at 18:30; Stop 11/16/18 at 08:07; Status DC Propofol 50 ml @ 0 mls/hr 1X ONCE IV ; Start 11/14/18 at 18:30; Stop 11/14/18 at 18:31; Status DC Etomidate (Amidate) 20 mg 1X ONCE IV Last administered on 11/14/18 18:11; Start 11/14/18 at 18:30; Stop 11/14/18 at 18:31; Status DC Rocuronium [place] (Zemuron) 50 mg 1X ONCE IV Last administered on 11/14/18 18:11; Start 11/14/18 at 18:30; Stop 11/14/18 at 18:31; Status DC Sodium Chloride 1,000 ml @ 1,000 mls/hr 1X ONCE IV Last administered on 11/14/18 18:11; Start 11/14/18 at 18:30; Stop 11/14/18 at 19:29; Status DC Vancomycin HCl 1.75 gm/Sodium Chloride 500 ml @ 250 mls/hr 1X ONCE IV Last administered on 11/14/18 21:00; Start 11/14/18 at 19:00; Stop 11/14/18 at 20:59; Status DC Midazolam HCl 100 ml @ 5 mls/hr CONT PRN IV SEE I/O RECORD Last administered on 11/15/18 06:05; Start 11/14/18 at 20:30; Stop 11/16/18 at 12:47; Status DC Sodium Chloride 1,000 ml @ 1,000 mls/hr 1X ONCE IV Last administered on 7/9/19at 21:07; Start 11/14/18 at 21:00; Stop 11/14/18 at 21:59; Status DC Methylprednisolone Sodium Succinate (SOLU-Medrol 125MG VIAL) 125 mg Q12HR IV Last administered on 11/19/18at 08:54; Start 11/15/18 at 09:00; Stop 11/19/18 at 10:15; Status DC Albuterol/ Ipratropium (Duoneb) 3 ml Q4HRS NEB ; Start 11/15/18 at 00:00; Status Cancel Sodium Chloride 1,000 ml @ 75 mls/hr [id number] IV Last administered on 11/22/18at 16:04; Start 11/14/18 at 22:00 Sodium Chloride 1,000 ml @ 999 mls/hr 1X ONCE IV ; Start 11/14/18 at 20:45; Stop 11/14/18 at 21:45; Status UNV Albuterol/ Ipratropium (Duoneb) 3 ml RTQID NEB ; Start 11/15/18 at 08:00; Stop 11/15/18 at 08:00; Status DC Albuterol Sulfate (Ventolin Neb Soln) 2.5 mg PRN Q4HRS PRN NEB SHORTNESS OF BREATH Last administered on 11/15/18at 20:23; Start 11/14/18 at 20:45 Norepinephrine Bitartrate 250 ml @ 1.875 mls/ hr CONT PRN IV SEE I/O RECORD Last administered on 11/15/18at 02:33; Start 11/14/18 at 22:30; Stop 11/16/18 at 12:47; Status DC Sodium Chloride 1,000 ml @ 999 mls/hr 1X ONCE IV Last administered on 11/14/18at 22:55; Start 11/14/18 at 23:00; Stop 11/15/18 at 00:00; Status DC Albuterol/ Ipratropium (Duoneb) 3 ml Q4HRS NEB Last administered on 11/22/18at 16:06; Start 11/15/18 at 00:00 Vancomycin HCl 1 gm/Sodium Chloride 250 ml @ 250 mls/hr Q12H IV Last administered on 11/15/18at 09:53; Start 11/15/18 at 09:00; Stop 11/15/18 at 12:00; Status DC Vancomycin HCl (Vancomycin Trough Level) 1 each 1X ONCE MC ; Start 11/16/18 at 20:30; Stop 11/16/18 at 20:31; Status Cancel Fentanyl Citrate 30 ml @ 0 mls/hr CONT PRN IV SEE PROTOCOL Last administered on 11/16/18at 04:50; Start 11/15/18 at 07:45; Stop 11/16/18 at 12:47; Status DC Sodium Chloride 1,000 ml @ 1,000 mls/hr 1X ONCE IV Last administered on 11/15/18at 09:54; Start 11/15/18 at 09:15; Stop 11/15/18 at 10:14; Status DC Famotidine (Pepcid Vial) 20 mg BID IVP Last administered on 11/22/18at 09:53; Start 11/15/18 at 10:00 Enoxaparin Sodium (Lovenox Per Pharmacy Prophylaxis Dosing) 1 each DAILY MC Last administered on 11/17/18at 09:00; Start 11/16/18 at 09:00; Stop 11/21/18 at 13:17; Status DC Enoxaparin Sodium (Lovenox 40mg Syringe) 40 mg Q24H SQ Last administered on 11/22/18at 09:53; Start 11/15/18 at 10:00 Vancomycin HCl 1 gm/Sodium Chloride 250 ml @ 250 mls/hr Q18H IV Last administered on 11/16/18at 03:01; Start 11/16/18 at 03:00; Stop 11/16/18 at 08:06; Status DC Lorazepam (Ativan Inj) 2 mg PRN Q4HRS PRN IV ANXIETY / AGITATION Last administered on 11/16/18at 15:28; Start 11/15/18 at 12:45; Stop 11/21/18 at 13:17; Status DC Propofol 100 ml @ 0 mls/hr CONT PRN IV SEE PROTOCOL Last administered on 11/16/18at 04:48; Start 11/15/18 at 16:15; Stop 11/16/18 at 12:47; Status DC Flumazenil (Romazicon) 0.1 mg 1X ONCE IV Last administered on 11/16/18at 16:46; Start 11/16/18 at 16:45; Stop 11/16/18 at 16:46; Status DC Flumazenil (Romazicon) 0.1 mg 1X ONCE IV Last administered on 11/16/18at 17:49; Start 11/16/18 at 17:45; Stop 11/16/18 at 17:49; Status DC Propofol 100 ml @ As Directed STK-MED ONCE IV ; Start 11/16/18 at 20:46; Stop 11/16/18 at 20:47; Status DC Propofol 100 ml @ 1.145 mls/ hr CONT PRN IV SEE I/O RECORD Last administered on 11/20/18at 08:17; Start 11/17/18 at 02:30; Stop 11/21/18 at 13:17; Status DC Fentanyl Citrate (Fentanyl 2ml Vial) 50 mcg PRN Q2HR PRN IV PAIN Last administ ered on 11/17/18at 02:41; Start 11/17/18 at 02:30; Stop 11/21/18 at 13:17; Status DC Fentanyl Citrate 30 ml @ 0 mls/hr CONT PRN IV SEE PROTOCOL Last administered on 11/20/18at 06:39; Start 11/17/18 at 07:15; Stop 11/21/18 at 13:17; Status DC Dextrose (Dextrose 50%-Water Syringe) 12.5 gm PRN Q15MIN PRN IV SEE COMMENTS; Start 11/17/18 at 11:30; Stop 11/21/18 at 13:17; Status DC Propofol (Diprivan) 200 mg STK-MED ONCE IV ; Start 11/16/18 at 12:00; Stop 11/17/18 at 15:00; Status DC Rocuronium [place] (Zemuron) 50 mg STK-MED ONCE .ROUTE ; Start 11/16/18 at 12:00; Stop 11/17/18 at 15:00; Status DC Methylprednisolone Sodium Succinate (SOLU-Medrol 40MG VIAL) 40 mg Q12HR IV Last administered on 11/22/18at 09:53; Start 11/19/18 at 21:00 Piperacillin Sod/ Tazobactam Sod 3.375 gm/Sodium Chloride 50 ml @ 100 mls/hr Q6HRS IV Last administered on 11/22/18at 18:02; Start 11/21/18 at 08:00 Ondansetron HCl (Zofran) 4 mg PRN Q6HRS PRN IV NAUSEA/VOMITING Last administered on 11/21/18at 07:57; Start 11/21/18 at 08:00 Enoxaparin Sodium (Lovenox 40mg Syringe) 40 mg Q24H SQ ; Start 11/22/18 at 09:00; Status UNV Multivitamins (Thera M Plus) 1 tab DAILY PO ; Start 11/22/18 at 11:30 Active Scripts Active Guaifenesin Dm Syrup (Guaifenesin/Dextromethorphan) 5 Ml Syrup 10 Ml PO PRN Q6HRS PRN MDD 1 7 Days Reported Prednisone (Prednisone) 10 Mg Tablet 10 Mg PO DAILY Fluoxetine Hcl 20 Mg Capsule 20 Mg PO DAILY Incruse Ellipta (Umeclidinium [place]) 62.5 Mcg Blst.w.dev 62.5 Mcg IH DAILY Breo Ellipta 100-25 Mcg Inh (Fluticasone/Vilanterol) 1 Each Aer.pow.ba 1 Puff IH DAILY Tudorza Pressair (Aclidinium [place]) 400 Mcg Aer.pow.ba 400 Mcg IH DAILY Allergies Allergies: Allergies Coded Allergies Type Severity Reaction Last Updated Verified No Known Drug Allergies 07/11/17 No ROS Review of System The patient denies any associated fevers, chills, headache, ear pain, rhinorrhea, sore throat, stiff neck, productive cough, chest pain, shortness of breath, back or flank pain, abdominal pain, nausea, vomiting, diarrhea, con stipation, dysuria, rash, numbness, weakness, tingling, incontinence, difficulty ambulating, or diaphoresis. Physical Exam Physical Exam General: Well developed, well nourished, no acute distress, well appearing HEENT: Pupils equally round and reactive to light, EOMI, no discharge, normal conjunctiva Neck: Supple, no nuchal rigidity, no JVD, trachea midline, no tenderness Cardiac: RRR, no murmurs, no gallops, no rubs Chest/Lungs: CTAB, no wheeze, no rhonchi, no crackles Abdomen: soft, non-distended, no guarding, no peritoneal signs, non-tender Back: No tenderness Extremities: no edema, pulses intact, non-tender,capillary refill <3 sec bilateral upper and lower extremities, Neuro: Alert and oriented x 4, no focal deficits, normal speech Vitals Vitals: Vital Signs Date Time Temp Pulse Resp B/P (MAP) Pulse Ox O2 Delivery O2 Flow Rate FiO2 11/22/18 18:00 79 25 144/69 (94) 98 Nasal Cannula 4.0 11/22/18 16:00 98.2 98.2 Labs Labs Laboratory Tests Test 11/21/18 04:55 11/21/18 07:15 11/21/18 09:35 11/22/18 04:10 White Blood Count 12.5 x10^3/uL (4.0-11.0) 13.4 x10^3/uL (4.0-11.0) Red Blood Count 3.62 x10^6/uL (3.50-5.40) 3.62 x10^6/uL (3.50-5.40) Hemoglobin 10.6 g/dL (12.0-15.5) 10.5 g/dL (12.0-15.5) Hematocrit 32.3 % (36.0-47.0) 32.2 % (36.0-47.0) Mean Corpuscular Volume 89 fL (79-100) 89 fL (79-100) Mean Corpuscular Hemoglobin 29 pg (25-35) 29 pg (25-35) Mean Corpuscular Hemoglobin Concent 33 g/dL (31-37) 33 g/dL (31-37) Red Cell Distribution Width 14.8 % (11.5-14.5) 14.9 % (11.5-14.5) Platelet Count 229 x10^3/uL (140-400) 238 x10^3/uL (140-400) Neutrophils (%) (Auto) 87 % (31-73) 91 % (31-73) Lymphocytes (%) (Auto) 7 % (24-48) 4 % (24-48) Monocytes (%) (Auto) 6 % (0-9) 5 % (0-9) Eosinophils (%) (Auto) 0 % (0-3) 0 % (0-3) Basophils (%) (Auto) 0 % (0-3) 0 % (0-3) Neutrophils # (Auto) 10.9 x10^3/uL (1.8-7.7) 12.2 x10^3/uL (1.8-7.7) Lymphocytes # (Auto) 0.8 x10^3/uL (1.0-4.8) 0.5 x10^3/uL (1.0-4.8) Monocytes # (Auto) 0.7 x10^3/uL (0.0-1.1) 0.6 x10^3/uL (0.0-1.1) Eosinophils # (Auto) 0.0 x10^3/uL (0.0-0.7) 0.0 x10^3/uL (0.0-0.7) Basophils # (Auto) 0.0 x10^3/uL (0.0-0.2) 0.0 x10^3/uL (0.0-0.2) Sodium Level 140 mmol/L (136-145) 143 mmol/L (136-145) Potassium Level 4.1 mmol/L (3.5-5.1) 3.8 mmol/L (3.5-5.1) Chloride Level 103 mmol/L (98-107) 104 mmol/L (98-107) Carbon Dioxide Level 33 mmol/L (21-32) 35 mmol/L (21-32) Anion Gap 4 (6-14) 4 (6-14) Blood Urea Nitrogen 23 mg/dL (7-20) 15 mg/dL (7-20) Creatinine 0.5 mg/dL (0.6-1.0) 0.5 mg/dL (0.6-1.0) Estimated GFR (Cockcroft-Gault) 124.2 124.2 Glucose Level 95 mg/dL (70-99) 97 mg/dL (70-99) Calcium Level 9.1 mg/dL (8.5-10.1) 8.7 mg/dL (8.5-10.1) Phosphorus Level 3.5 mg/dL (2.6-4.7) Albumin 2.7 g/dL (3.4-5.0) 2.6 g/dL (3.4-5.0) O2 Saturation 98 % (92-99) 97 % (92-99) Arterial Blood pH 7.45 (7.35-7.45) 7.39 (7.35-7.45) Arterial Blood pCO2 at Patient Temp 44 mmHg (35-46) 54 mmHg (35-46) Arterial Blood pO2 at Patient Temp 118 mmHg (65-108) 98 mmHg (65-108) Arterial Blood HCO3 30 mmol/L (21-28) 31 mmol/L (21-28) Arterial Blood Base Excess 6 mmol/L (-3-3) 5 mmol/L (-3-3) FiO2 40 40 BUN/Creatinine Ratio 30 (6-20) Total Bilirubin 0.4 mg/dL (0.2-1.0) Aspartate Amino Transf (AST/SGOT) 23 U/L (15-37) Alanine Aminotransferase (ALT/SGPT) 86 U/L (14-59) Alkaline Phosphatase 37 U/L (46-116) Total Protein 5.4 g/dL (6.4-8.2) Albumin/Globulin Ratio 0.9 (1.0-1.7) Test 11/22/18 08:45 O2 Saturation 96 % (92-99) Arterial Blood pH 7.36 (7.35-7.45) Arterial Blood pCO2 at Patient Temp 60 mmHg (35-46) Arterial Blood pO2 at Patient Temp 86 mmHg (65-108) Arterial Blood HCO3 33 mmol/L (21-28) Arterial Blood Base Excess 6 mmol/L (-3-3) FiO2 32 Laboratory Tests Test 11/22/18 04:10 11/22/18 08:45 White Blood Count 13.4 x10^3/uL (4.0-11.0) Red Blood Count 3.62 x10^6/uL (3.50-5.40) Hemoglobin 10.5 g/dL (12.0-15.5) Hematocrit 32.2 % (36.0-47.0) Mean Corpuscular Volume 89 fL (79-100) Mean Corpuscular Hemoglobin 29 pg (25-35) Mean Corpuscular Hemoglobin Concent 33 g/dL (31-37) Red Cell Distribution Width 14.9 % (11.5-14.5) Platelet Count 238 x10^3/uL (140-400) Neutrophils (%) (Auto) 91 % (31-73) Lymphocytes (%) (Auto) 4 % (24-48) Monocytes (%) (Auto) 5 % (0-9) Eosinophils (%) (Auto) 0 % (0-3) Basophils (%) (Auto) 0 % (0-3) Neutrophils # (Auto) 12.2 x10^3/uL (1.8-7.7) Lymphocytes # (Auto) 0.5 x10^3/uL (1.0-4.8) Monocytes # (Auto) 0.6 x10^3/uL (0.0-1.1) Eosinophils # (Auto) 0.0 x10^3/uL (0.0-0.7) Basophils # (Auto) 0.0 x10^3/uL (0.0-0.2) Sodium Level 143 mmol/L (136-145) Potassium Level 3.8 mmol/L (3.5-5.1) Chloride Level 104 mmol/L (98-107) Carbon Dioxide Level 35 mmol/L (21-32) Anion Gap 4 (6-14) Blood Urea Nitrogen 15 mg/dL (7-20) Creatinine 0.5 mg/dL (0.6-1.0) Estimated GFR (Cockcroft-Gault) 124.2 BUN/Creatinine Ratio 30 (6-20) Glucose Level 97 mg/dL (70-99) Calcium Level 8.7 mg/dL (8.5-10.1) Total Bilirubin 0.4 mg/dL (0.2-1.0) Aspartate Amino Transf (AST/SGOT) 23 U/L (15-37) Alanine Aminotransferase (ALT/SGPT) 86 U/L (14-59) Alkaline Phosphatase 37 U/L (46-116) Total Protein 5.4 g/dL (6.4-8.2) Albumin 2.6 g/dL (3.4-5.0) Albumin/Globulin Ratio 0.9 (1.0-1.7) O2 Saturation 96 % (92-99) Arterial Blood pH 7.36 (7.35-7.45) Arterial Blood pCO2 at Patient Temp 60 mmHg (35-46) Arterial Blood pO2 at Patient Temp 86 mmHg (65-108) Arterial Blood HCO3 33 mmol/L (21-28) Arterial Blood Base Excess 6 mmol/L (-3-3) FiO2 32 MARTIN FIELD MD Nov 22, 2018 18:26
[2018-11-22 18:49] LABS: BASE EXCESS ABG 5 mmol/L (-3-3); HCO3 ABG 32 mmol/L (21-28); PCO2 ABG 57 mmHg (35-46); PO2 ABG 87 mmHg (65-108); SAT O2 ABG 96 % (92-99)
[2018-11-22 18:50] LABS: FIO2 ABG 40
[2018-11-23] VITALS (24 sets, daily range): BP systolic 96–167; BP diastolic 46–92
[2018-11-23] MEDS: PIPERACILLIN/TAZOBACTAM 3.375 GM in IV NORMAL SALINE 50ML 50 ML IV SCH ×2 (00:31→06:09)
[2018-11-23] MEDS: IPRATRPIUM/ALBUTEROL 0.5/2.5MG 3 ML NEBU. NEB SCH ×6 (03:45→20:24)
[2018-11-23] MEDS: IV NORMAL SALINE 1000ML BAG 1,000 ML IV SCH ×2 (06:11→19:47)
[2018-11-23 06:32] LABS: ALBUMIN 2.7 g/dL (3.4-5.0); CALCIUM 8.6 mg/dL (8.5-10.1); CREATININE 0.4 mg/dL (0.6-1.0); GFR 160.7; MAGNESIUM 1.9 mg/dL (1.8-2.4); PHOSPHORUS 3.2 mg/dL (2.6-4.7); POTASSIUM 3.5 mmol/L (3.5-5.1)
[2018-11-23 06:33] LABS: BASO % 0 % (0-3); EOS % 0 % (0-3); HEMATOCRIT 31.2 % (36.0-47.0); HEMOGLOBIN 10.4 g/dL (12.0-15.5); LYMPH % 7 % (24-48); MEAN CORPUSCULAR HEMOGLOBIN 30 pg (25-35); MEAN CORPUSCULAR HGB CONC 33 g/dL (31-37); MEAN CORPUSCULAR VOLUME 89 fL (79-100); MONO % 7 % (0-9); NEUT # 11.4 x10^3/uL (1.8-7.7); NEUT % 85 % (31-73); PLATELET COUNT 238 x10^3/uL (140-400); RED BLOOD COUNT 3.52 x10^6/uL (3.50-5.40); RED CELL DISTRIBUTION WIDTH 14.8 % (11.5-14.5); WHITE BLOOD COUNT 13.3 x10^3/uL (4.0-11.0)
--- NOTE | 2018-11-23 07:00 | PDOC ---
Infectious Disease Note Subjective Subjective Doing ok. No Pain/F/C/S/SOA/N/itch -cough ROS ROS O/w neg Vital Sign Vital Signs Vital Signs Date Time Temp Pulse Resp B/P (MAP) Pulse Ox O2 Delivery O2 Flow Rate FiO2 11/23/18 06:00 69 22 157/65 (95) 94 Nasal Cannula 3.0 11/23/18 04:00 98.2 98.2 Physical Exam PHYSICAL EXAM GENERAL:NAD, Very Alert coop - pleasant HEENT: Pupils equal, edentulous and clear NECK: Supple. LUNGS: Clear anteriorly HEART: S1, S2. + murmur ABDOMEN: little distended, soft, + BS : Carvalho in place EXTREMITIES: No cyanosis, 1 edema. LUE1 -2 DERMATOLOGIC: Warm, dry. No generalized rash. NEUROLOGIC: alert/coop PIV Labs Lab Laboratory Tests Test 11/22/18 08:45 11/22/18 18:34 11/23/18 06:00 O2 Saturation 96 % (92-99) 96 % (92-99) Arterial Blood pH 7.36 (7.35-7.45) 7.36 (7.35-7.45) Arterial Blood pCO2 at Patient Temp 60 mmHg (35-46) 57 mmHg (35-46) Arterial Blood pO2 at Patient Temp 86 mmHg (65-108) 87 mmHg (65-108) Arterial Blood HCO3 33 mmol/L (21-28) 32 mmol/L (21-28) Arterial Blood Base Excess 6 mmol/L (-3-3) 5 mmol/L (-3-3) FiO2 32 40 White Blood Count 13.3 x10^3/uL (4.0-11.0) Red Blood Count 3.52 x10^6/uL (3.50-5.40) Hemoglobin 10.4 g/dL (12.0-15.5) Hematocrit 31.2 % (36.0-47.0) Mean Corpuscular Volume 89 fL (79-100) Mean Corpuscular Hemoglobin 30 pg (25-35) Mean Corpuscular Hemoglobin Concent 33 g/dL (31-37) Red Cell Distribution Width 14.8 % (11.5-14.5) Platelet Count 238 x10^3/uL (140-400) Neutrophils (%) (Auto) 85 % (31-73) Lymphocytes (%) (Auto) 7 % (24-48) Monocytes (%) (Auto) 7 % (0-9) Eosinophils (%) (Auto) 0 % (0-3) Basophils (%) (Auto) 0 % (0-3) Neutrophils # (Auto) 11.4 x10^3/uL (1.8-7.7) Lymphocytes # (Auto) 1.0 x10^3/uL (1.0-4.8) Monocytes # (Auto) 1.0 x10^3/uL (0.0-1.1) Eosinophils # (Auto) 0.0 x10^3/uL (0.0-0.7) Basophils # (Auto) 0.0 x10^3/uL (0.0-0.2) Sodium Level 144 mmol/L (136-145) Potassium Level 3.5 mmol/L (3.5-5.1) Chloride Level 103 mmol/L (98-107) Carbon Dioxide Level 35 mmol/L (21-32) Anion Gap 6 (6-14) Blood Urea Nitrogen 13 mg/dL (7-20) Creatinine 0.4 mg/dL (0.6-1.0) Estimated GFR (Cockcroft-Gault) 160.7 Glucose Level 85 mg/dL (70-99) Calcium Level 8.6 mg/dL (8.5-10.1) Phosphorus Level 3.2 mg/dL (2.6-4.7) Magnesium Level 1.9 mg/dL (1.8-2.4) Albumin 2.7 g/dL (3.4-5.0) Micro Microbiology 11/14/18 Blood Culture - Final, Complete NO GROWTH AFTER 5 DAYS 11/14/18 Urine Culture - Final, Complete 11/14/18 Urine Culture Result 1 (KRISTA) - Final, Complete Objective Assessment N/Vomiting - better Hypotension, questionable sepsis. - off Levophed since 11/16 leukocytosis - on steroids - stable Acute on chronic respiratory failure.- now extubated Suspected emphysema. Moderate aortic stenosis. Encephalopathy, likely metabolic - resolved, Anxiety. Obstructive sleep apnea. Protein-calorie malnutrition. Anemia. Plan Plan of Care D/c Zosyn for aspiration 11/21 Steroids Cultures neg to date Supportive care. F/u labs D/w nursing GENARO PEPPER MD Nov 23, 2018 07:00
[2018-11-23] MEDS: MULTIVITAMIN with MINERAL TABLET. PO SCH (09:00)
[2018-11-23] MEDS: FAMOTIDINE 20 MG/2 ML VIAL IVP SCH ×2 (10:11→20:53)
[2018-11-23] MEDS: methylPREDNISolone SOD SUCC PF 40 MG/ML VIAL. IV SCH ×2 (10:11→20:52)
[2018-11-23] MEDS: ENOXAPARIN 40 MG/0.4 ML SYRINGE. SQ SCH (10:11)
--- NOTE | 2018-11-23 11:03 | PDOC2 ---
PALLIATIVE CARE Palliative Care Note Palliative Care Patient alert. Sitting up in bed. Speaking with daughter. No other family here for meeting. Daughter Tiana states her mother can not make decisions for her health care. Patient states she does "not want the tube back down" She does not want resuscitation. Discussed options for discharge--patient has Medicaid and can not go to SNU for strengthening. Options are Home vs Intermediate Care facility. Daughter did ask about Hospice. Reviewed Hospice support---comfort, not returning to hospital unless symptoms are out of control. States that she was told that conversation would occur when her mother got back to normal. Patient lives with who is gone most of the day--checking on her before he goes to work. Attempted to return call to cosme Shepherd. No answer. message to return call. Family will need more discussion. Patient is adamant that she does not want intubation. 1115. After visiting with cosme Montiel and discussing with Dr. Snider patient wants more discussion with her family and wants intubation. Full Resuscitation. Dr. Snider will write order. JOANN ORNELAS Nov 23, 2018 11:02
--- NOTE | 2018-11-23 11:25 | PDOC ---
PULMONARY PROGRESS NOTES Subjective extubated 11/21 no soa Vitals Vital Signs Date Time Temp Pulse Resp B/P (MAP) Pulse Ox O2 Delivery O2 Flow Rate FiO2 11/23/18 09:00 76 22 106/56 (73) 100 Nasal Cannula 3.0 11/23/18 08:00 98.0 98.0 General: Alert, No acute distress HEENT: Other (nc at perrl nose clear orally intubated neck no lad, no thyromegaly) Lungs: Other (decrease bs) Cardiovascular: S1, S2 Abdomen: Soft, Non-tender, Other (no mass) Neuro Exam: Alert Extremities: No Edema Skin: Warm Labs Laboratory Tests Test 11/22/18 04:10 11/22/18 08:45 11/22/18 18:34 11/23/18 06:00 White Blood Count 13.4 x10^3/uL (4.0-11.0) 13.3 x10^3/uL (4.0-11.0) Red Blood Count 3.62 x10^6/uL (3.50-5.40) 3.52 x10^6/uL (3.50-5.40) Hemoglobin 10.5 g/dL (12.0-15.5) 10.4 g/dL (12.0-15.5) Hematocrit 32.2 % (36.0-47.0) 31.2 % (36.0-47.0) Mean Corpuscular Volume 89 fL (79-100) 89 fL (79-100) Mean Corpuscular Hemoglobin 29 pg (25-35) 30 pg (25-35) Mean Corpuscular Hemoglobin Concent 33 g/dL (31-37) 33 g/dL (31-37) Red Cell Distribution Width 14.9 % (11.5-14.5) 14.8 % (11.5-14.5) Platelet Count 238 x10^3/uL (140-400) 238 x10^3/uL (140-400) Neutrophils (%) (Auto) 91 % (31-73) 85 % (31-73) Lymphocytes (%) (Auto) 4 % (24-48) 7 % (24-48) Monocytes (%) (Auto) 5 % (0-9) 7 % (0-9) Eosinophils (%) (Auto) 0 % (0-3) 0 % (0-3) Basophils (%) (Auto) 0 % (0-3) 0 % (0-3) Neutrophils # (Auto) 12.2 x10^3/uL (1.8-7.7) 11.4 x10^3/uL (1.8-7.7) Lymphocytes # (Auto) 0.5 x10^3/uL (1.0-4.8) 1.0 x10^3/uL (1.0-4.8) Monocytes # (Auto) 0.6 x10^3/uL (0.0-1.1) 1.0 x10^3/uL (0.0-1.1) Eosinophils # (Auto) 0.0 x10^3/uL (0.0-0.7) 0.0 x10^3/uL (0.0-0.7) Basophils # (Auto) 0.0 x10^3/uL (0.0-0.2) 0.0 x10^3/uL (0.0-0.2) Sodium Level 143 mmol/L (136-145) 144 mmol/L (136-145) Potassium Level 3.8 mmol/L (3.5-5.1) 3.5 mmol/L (3.5-5.1) Chloride Level 104 mmol/L (98-107) 103 mmol/L (98-107) Carbon Dioxide Level 35 mmol/L (21-32) 35 mmol/L (21-32) Anion Gap 4 (6-14) 6 (6-14) Blood Urea Nitrogen 15 mg/dL (7-20) 13 mg/dL (7-20) Creatinine 0.5 mg/dL (0.6-1.0) 0.4 mg/dL (0.6-1.0) Estimated GFR (Cockcroft-Gault) 124.2 160.7 BUN/Creatinine Ratio 30 (6-20) Glucose Level 97 mg/dL (70-99) 85 mg/dL (70-99) Calcium Level 8.7 mg/dL (8.5-10.1) 8.6 mg/dL (8.5-10.1) Total Bilirubin 0.4 mg/dL (0.2-1.0) Aspartate Amino Transf (AST/SGOT) 23 U/L (15-37) Alanine Aminotransferase (ALT/SGPT) 86 U/L (14-59) Alkaline Phosphatase 37 U/L (46-116) Total Protein 5.4 g/dL (6.4-8.2) Albumin 2.6 g/dL (3.4-5.0) 2.7 g/dL (3.4-5.0) Albumin/Globulin Ratio 0.9 (1.0-1.7) O2 Saturation 96 % (92-99) 96 % (92-99) Arterial Blood pH 7.36 (7.35-7.45) 7.36 (7.35-7.45) Arterial Blood pCO2 at Patient Temp 60 mmHg (35-46) 57 mmHg (35-46) Arterial Blood pO2 at Patient Temp 86 mmHg (65-108) 87 mmHg (65-108) Arterial Blood HCO3 33 mmol/L (21-28) 32 mmol/L (21-28) Arterial Blood Base Excess 6 mmol/L (-3-3) 5 mmol/L (-3-3) FiO2 32 40 Phosphorus Level 3.2 mg/dL (2.6-4.7) Magnesium Level 1.9 mg/dL (1.8-2.4) Laboratory Tests Test 11/22/18 18:34 11/23/18 06:00 O2 Saturation 96 % (92-99) Arterial Blood pH 7.36 (7.35-7.45) Arterial Blood pCO2 at Patient Temp 57 mmHg (35-46) Arterial Blood pO2 at Patient Temp 87 mmHg (65-108) Arterial Blood HCO3 32 mmol/L (21-28) Arterial Blood Base Excess 5 mmol/L (-3-3) FiO2 40 White Blood Count 13.3 x10^3/uL (4.0-11.0) Red Blood Count 3.52 x10^6/uL (3.50-5.40) Hemoglobin 10.4 g/dL (12.0-15.5) Hematocrit 31.2 % (36.0-47.0) Mean Corpuscular Volume 89 fL (79-100) Mean Corpuscular Hemoglobin 30 pg (25-35) Mean Corpuscular Hemoglobin Concent 33 g/dL (31-37) Red Cell Distribution Width 14.8 % (11.5-14.5) Platelet Count 238 x10^3/uL (140-400) Neutrophils (%) (Auto) 85 % (31-73) Lymphocytes (%) (Auto) 7 % (24-48) Monocytes (%) (Auto) 7 % (0-9) Eosinophils (%) (Auto) 0 % (0-3) Basophils (%) (Auto) 0 % (0-3) Neutrophils # (Auto) 11.4 x10^3/uL (1.8-7.7) Lymphocytes # (Auto) 1.0 x10^3/uL (1.0-4.8) Monocytes # (Auto) 1.0 x10^3/uL (0.0-1.1) Eosinophils # (Auto) 0.0 x10^3/uL (0.0-0.7) Basophils # (Auto) 0.0 x10^3/uL (0.0-0.2) Sodium Level 144 mmol/L (136-145) Potassium Level 3.5 mmol/L (3.5-5.1) Chloride Level 103 mmol/L (98-107) Carbon Dioxide Level 35 mmol/L (21-32) Anion Gap 6 (6-14) Blood Urea Nitrogen 13 mg/dL (7-20) Creatinine 0.4 mg/dL (0.6-1.0) Estimated GFR (Cockcroft-Gault) 160.7 Glucose Level 85 mg/dL (70-99) Calcium Level 8.6 mg/dL (8.5-10.1) Phosphorus Level 3.2 mg/dL (2.6-4.7) Magnesium Level 1.9 mg/dL (1.8-2.4) Albumin 2.7 g/dL (3.4-5.0) Medications Active Scripts Medications Dose Route/Sig Max Daily Dose Days Date Category Guaifenesin Dm Syrup (Guaifenesin/Dextromethorphan) 5 Ml Syrup 10 Ml PO PRN Q6HRS PRN MDD 1 7 10/03/18 Rx Incruse Ellipta (Umeclidinium [place]) 62.5 Mcg Blst.w.dev 62.5 Mcg IH DAILY 07/11/17 Reported Breo Ellipta 100-25 Mcg Inh (Fluticasone/Vilanterol) 1 Each Aer.pow.ba 1 Puff IH DAILY 3/5/18 Reported Tudorza Pressair (Aclidinium [place]) 400 Mcg Aer.pow.ba 400 Mcg IH DAILY 07/11/17 Reported Comments CXR 11/22, reviewed no new infiltrates Impression . 1. Dguxt-xk-rpbilck hypercapnic respiratory failure secondary to acute exacerbation of chronic obstructive pulmonary disease and also shock. Re- intubated 11/16, extubated 11/21 2. Shock, likely a combination of hypovolemic and septic shock. off levo, resolved 3. Low-grade fever POA. Source could be in the lungs, although chest x-ray does not show definite consolidation , no further fever 4. Suspect underlying severe chronic obstructive pulmonary disease with chronic hypercapnia. 5. Mild azotemia. 6. Bcyc-xn-nkuynaqj protein-calorie malnutrition. 7. Moderate Plan . 1. prn BIPAP for dyspnea. ABG adequate. d/w RN 2. OFF antibiotics. 3. Follow cultures. neg so far 4. steroids 5. off Levophed .keep systolic pressure above 100. 6. Continue DuoNeb. 7. Deep venous thrombosis prophylaxis. 8. Stress ulcer prophylaxis. 9. elevate hob Discussed with RN,D/W patient and another daughter at the bed side. Patient now wants to be a full code. she understands that if re-intubated, she will need tracheostomy and live in [place] on vent. XENA MCGRAW MD Nov 23, 2018 11:25
--- NOTE | 2018-11-23 13:22 | PDOC ---
PROGRESS NOTES Chief Complaint Chief Complaint acute hypoxic and hypercarbic respiratory failure back on bipap today, may need to get reintubated, discussed with palliative care History of Present Illness History of Present Illness acute hypercarbic respiratory failure, critical pH and PCO2 levels metabolic encephalopathy likely sec hypoxic insult acute hypoxia////hypercapnea COPD with acute bronchitis exacerbation of chronic obstructive pulmonary disease shock. likely a combination of hypovolemic and septic shock. RECENT ECHO 09/24 Transmitral Doppler flow pattern is Grade I-abnormal relaxation pattern. Moderate aortic stenosis. Trace mitral regurgitation. Trace tricuspid regurgitation. The PA pressure was estimated at 36 mmHg. Small bilateral lung nodules. follow-up noncontrast chest CT SOON per Fleischner guidelines. MODERATE- severe PROTEIN-CALORIC MALNUTRITION COPD changes. Superimposed mild atypical/viral infection not ruled out. cxr 11/20 concern for aspiration on swallow ICU, back on bipap 11/23 ATTEMPT extubation 11/20 CPAP trial today. extubate today 11/21 DNI/DNR POST EXTUBATION. pulm FOLLOWING ID following CARDIOLOGY CONSULT/// RE SHOCK, AORTIC STENOSIS Deep venous thrombosis prophylaxis. Stress ulcer prophylaxis. d/c vanc prn Levophed to keep systolic pressure above 100. cont iv zosyn Steroids iv, taper neurology consult PT/OT/ST 11/17 worsening respiratory acidosis, failed BIPAP , Re-intubated, AC mode 11/18 BLOOD CULT NEG TO DATE present assist control mode. 11/20 dnr status post extubation planned 11/21 D/c empiric cefepime 37 min CC TIME Vitals Vitals Vital Signs Date Time Temp Pulse Resp B/P (MAP) Pulse Ox O2 Delivery O2 Flow Rate FiO2 11/23/18 12:00 Nasal Cannula 3.0 11/23/18 12:00 98.7 98 21 96/46 (63) 98.7 11/23/18 11:25 98 Physical Exam Physical Exam GENERAL:NAD, Very Alert coop - pleasant HEENT: Pupils equal, edentulous and clear NECK: Supple. LUNGS: Clear anteriorly HEART: S1, S2. + murmur ABDOMEN: little distended, soft, + BS : Carvalho in place EXTREMITIES: No cyanosis, 1 edema. LUE1 -2 DERMATOLOGIC: Warm, dry. No generalized rash. NEUROLOGIC: alert/coop PIV General: Alert, Cooperative, No acute distress, Other (confused to details) Heart: Regular rate (SR no ectopies), Other (3/6 systolic murmur to AKIN border) Lungs: Other (decrease bs) Abdomen: Normal bowel sounds, Soft, No tenderness Extremities: No clubbing, No cyanosis Skin: No breakdown, No significant lesion Labs LABS Laboratory Tests Test 11/22/18 18:34 11/23/18 06:00 O2 Saturation 96 % (92-99) Arterial Blood pH 7.36 (7.35-7.45) Arterial Blood pCO2 at Patient Temp 57 mmHg (35-46) Arterial Blood pO2 at Patient Temp 87 mmHg (65-108) Arterial Blood HCO3 32 mmol/L (21-28) Arterial Blood Base Excess 5 mmol/L (-3-3) FiO2 40 White Blood Count 13.3 x10^3/uL (4.0-11.0) Red Blood Count 3.52 x10^6/uL (3.50-5.40) Hemoglobin 10.4 g/dL (12.0-15.5) Hematocrit 31.2 % (36.0-47.0) Mean Corpuscular Volume 89 fL (79-100) Mean Corpuscular Hemoglobin 30 pg (25-35) Mean Corpuscular Hemoglobin Concent 33 g/dL (31-37) Red Cell Distribution Width 14.8 % (11.5-14.5) Platelet Count 238 x10^3/uL (140-400) Neutrophils (%) (Auto) 85 % (31-73) Lymphocytes (%) (Auto) 7 % (24-48) Monocytes (%) (Auto) 7 % (0-9) Eosinophils (%) (Auto) 0 % (0-3) Basophils (%) (Auto) 0 % (0-3) Neutrophils # (Auto) 11.4 x10^3/uL (1.8-7.7) Lymphocytes # (Auto) 1.0 x10^3/uL (1.0-4.8) Monocytes # (Auto) 1.0 x10^3/uL (0.0-1.1) Eosinophils # (Auto) 0.0 x10^3/uL (0.0-0.7) Basophils # (Auto) 0.0 x10^3/uL (0.0-0.2) Sodium Level 144 mmol/L (136-145) Potassium Level 3.5 mmol/L (3.5-5.1) Chloride Level 103 mmol/L (98-107) Carbon Dioxide Level 35 mmol/L (21-32) Anion Gap 6 (6-14) Blood Urea Nitrogen 13 mg/dL (7-20) Creatinine 0.4 mg/dL (0.6-1.0) Estimated GFR (Cockcroft-Gault) 160.7 Glucose Level 85 mg/dL (70-99) Calcium Level 8.6 mg/dL (8.5-10.1) Phosphorus Level 3.2 mg/dL (2.6-4.7) Magnesium Level 1.9 mg/dL (1.8-2.4) Albumin 2.7 g/dL (3.4-5.0) Assessment and Plan Assessmemt and Plan Problems Medical Problems: (1) Acute hypercapnic respiratory failure Status: Acute Comment Review of Relevant I have reviewed the following items heaven (where applicable) has been applied. Labs Laboratory Tests Test 11/22/18 04:10 11/22/18 08:45 11/22/18 18:34 11/23/18 06:00 White Blood Count 13.4 x10^3/uL (4.0-11.0) 13.3 x10^3/uL (4.0-11.0) Red Blood Count 3.62 x10^6/uL (3.50-5.40) 3.52 x10^6/uL (3.50-5.40) Hemoglobin 10.5 g/dL (12.0-15.5) 10.4 g/dL (12.0-15.5) Hematocrit 32.2 % (36.0-47.0) 31.2 % (36.0-47.0) Mean Corpuscular Volume 89 fL (79-100) 89 fL (79-100) Mean Corpuscular Hemoglobin 29 pg (25-35) 30 pg (25-35) Mean Corpuscular Hemoglobin Concent 33 g/dL (31-37) 33 g/dL (31-37) Red Cell Distribution Width 14.9 % (11.5-14.5) 14.8 % (11.5-14.5) Platelet Count 238 x10^3/uL (140-400) 238 x10^3/uL (140-400) Neutrophils (%) (Auto) 91 % (31-73) 85 % (31-73) Lymphocytes (%) (Auto) 4 % (24-48) 7 % (24-48) Monocytes (%) (Auto) 5 % (0-9) 7 % (0-9) Eosinophils (%) (Auto) 0 % (0-3) 0 % (0-3) Basophils (%) (Auto) 0 % (0-3) 0 % (0-3) Neutrophils # (Auto) 12.2 x10^3/uL (1.8-7.7) 11.4 x10^3/uL (1.8-7.7) Lymphocytes # (Auto) 0.5 x10^3/uL (1.0-4.8) 1.0 x10^3/uL (1.0-4.8) Monocytes # (Auto) 0.6 x10^3/uL (0.0-1.1) 1.0 x10^3/uL (0.0-1.1) Eosinophils # (Auto) 0.0 x10^3/uL (0.0-0.7) 0.0 x10^3/uL (0.0-0.7) Basophils # (Auto) 0.0 x10^3/uL (0.0-0.2) 0.0 x10^3/uL (0.0-0.2) Sodium Level 143 mmol/L (136-145) 144 mmol/L (136-145) Potassium Level 3.8 mmol/L (3.5-5.1) 3.5 mmol/L (3.5-5.1) Chloride Level 104 mmol/L (98-107) 103 mmol/L (98-107) Carbon Dioxide Level 35 mmol/L (21-32) 35 mmol/L (21-32) Anion Gap 4 (6-14) 6 (6-14) Blood Urea Nitrogen 15 mg/dL (7-20) 13 mg/dL (7-20) Creatinine 0.5 mg/dL (0.6-1.0) 0.4 mg/dL (0.6-1.0) Estimated GFR (Cockcroft-Gault) 124.2 160.7 BUN/Creatinine Ratio 30 (6-20) Glucose Level 97 mg/dL (70-99) 85 mg/dL (70-99) Calcium Level 8.7 mg/dL (8.5-10.1) 8.6 mg/dL (8.5-10.1) Total Bilirubin 0.4 mg/dL (0.2-1.0) Aspartate Amino Transf (AST/SGOT) 23 U/L (15-37) Alanine Aminotransferase (ALT/SGPT) 86 U/L (14-59) Alkaline Phosphatase 37 U/L (46-116) Total Protein 5.4 g/dL (6.4-8.2) Albumin 2.6 g/dL (3.4-5.0) 2.7 g/dL (3.4-5.0) Albumin/Globulin Ratio 0.9 (1.0-1.7) O2 Saturation 96 % (92-99) 96 % (92-99) Arterial Blood pH 7.36 (7.35-7.45) 7.36 (7.35-7.45) Arterial Blood pCO2 at Patient Temp 60 mmHg (35-46) 57 mmHg (35-46) Arterial Blood pO2 at Patient Temp 86 mmHg (65-108) 87 mmHg (65-108) Arterial Blood HCO3 33 mmol/L (21-28) 32 mmol/L (21-28) Arterial Blood Base Excess 6 mmol/L (-3-3) 5 mmol/L (-3-3) FiO2 32 40 Phosphorus Level 3.2 mg/dL (2.6-4.7) Magnesium Level 1.9 mg/dL (1.8-2.4) Laboratory Tests Test 11/22/18 18:34 11/23/18 06:00 O2 Saturation 96 % (92-99) Arterial Blood pH 7.36 (7.35-7.45) Arterial Blood pCO2 at Patient Temp 57 mmHg (35-46) Arterial Blood pO2 at Patient Temp 87 mmHg (65-108) Arterial Blood HCO3 32 mmol/L (21-28) Arterial Blood Base Excess 5 mmol/L (-3-3) FiO2 40 White Blood Count 13.3 x10^3/uL (4.0-11.0) Red Blood Count 3.52 x10^6/uL (3.50-5.40) Hemoglobin 10.4 g/dL (12.0-15.5) Hematocrit 31.2 % (36.0-47.0) Mean Corpuscular Volume 89 fL (79-100) Mean Corpuscular Hemoglobin 30 pg (25-35) Mean Corpuscular Hemoglobin Concent 33 g/dL (31-37) Red Cell Distribution Width 14.8 % (11.5-14.5) Platelet Count 238 x10^3/uL (140-400) Neutrophils (%) (Auto) 85 % (31-73) Lymphocytes (%) (Auto) 7 % (24-48) Monocytes (%) (Auto) 7 % (0-9) Eosinophils (%) (Auto) 0 % (0-3) Basophils (%) (Auto) 0 % (0-3) Neutrophils # (Auto) 11.4 x10^3/uL (1.8-7.7) Lymphocytes # (Auto) 1.0 x10^3/uL (1.0-4.8) Monocytes # (Auto) 1.0 x10^3/uL (0.0-1.1) Eosinophils # (Auto) 0.0 x10^3/uL (0.0-0.7) Basophils # (Auto) 0.0 x10^3/uL (0.0-0.2) Sodium Level 144 mmol/L (136-145) Potassium Level 3.5 mmol/L (3.5-5.1) Chloride Level 103 mmol/L (98-107) Carbon Dioxide Level 35 mmol/L (21-32) Anion Gap 6 (6-14) Blood Urea Nitrogen 13 mg/dL (7-20) Creatinine 0.4 mg/dL (0.6-1.0) Estimated GFR (Cockcroft-Gault) 160.7 Glucose Level 85 mg/dL (70-99) Calcium Level 8.6 mg/dL (8.5-10.1) Phosphorus Level 3.2 mg/dL (2.6-4.7) Magnesium Level 1.9 mg/dL (1.8-2.4) Albumin 2.7 g/dL (3.4-5.0) Microbiology 11/14/18 Blood Culture - Final, Complete NO GROWTH AFTER 5 DAYS 11/14/18 Urine Culture - Final, Complete 11/14/18 Urine Culture Result 1 (KRISTA) - Final, Complete Medications Current Medications Methylprednisolone Sodium Succinate (SOLU-Medrol 125MG VIAL) 125 mg 1X ONCE IV Last administered on 11/14/18at 17:14; Start 11/14/18 at 16:45; Stop 11/14/18 at 16:46; Status DC Albuterol/ Ipratropium (Duoneb) 3 ml 1X ONCE NEB Last administered on 11/14/18at 17:04; Start 11/14/18 at 16:45; Stop 11/14/18 at 16:46; Status DC Ondansetron HCl (Zofran) 4 mg 1X ONCE IV Last administered on 11/14/18at 17:13; Start 11/14/18 at 17:00; Stop 11/14/18 at 17:01; Status DC Propofol 0 ml @ As Directed STK-MED ONCE IV ; Start 11/14/18 at 18:09; Stop 11/14/18 at 18:10; Status DC Etomidate (Amidate) 20 mg STK-MED ONCE IV ; Start 11/14/18 at 18:17; Stop 11/14/18 at 18:18; Status DC Rocuronium [place] (Zemuron) 50 mg STK-MED ONCE .ROUTE ; Start 11/14/18 at 18:17; Stop 11/14/18 at 18:18; Status DC Propofol 100 ml @ 0 mls/hr CONT PRN IV SEE PROTOCOL Last administered on 11/14/18at 18:00; Start 11/14/18 at 18:30; Stop 11/15/18 at 07:38; Status DC Chlorhexidine Gluconate (Peridex) 15 ml BID MM ; Start 11/14/18 at 21:00; Stop 11/15/18 at 16:12; Status DC Midazolam HCl 100 ml @ 0 mls/hr CONT PRN IV SEE PROTOCOL; Start 11/14/18 at 18:30; Stop 11/14/18 at 20:14; Status DC Cefepime HCl (Maxipime) 2 gm Q12HR IVP Last administered on 11/20/18at 20:52; Start 11/14/18 at 18:27; Stop 11/21/18 at 07:30; Status DC Azithromycin 250 ml @ 250 mls/hr 1X ONCE IV Last administered on 11/14/18at 22:56; Start 11/14/18 at 18:30; Stop 11/14/18 at 19:29; Status DC Vancomycin HCl (Vanco Per Pharmacy) 1 each PRN DAILY PRN MC SEE COMMENTS Last administered on 11/15/18at 10:17; Start 11/14/18 at 18:30; Stop 11/16/18 at 08:07; Status DC Propofol 50 ml @ 0 mls/hr 1X ONCE IV ; Start 11/14/18 at 18:30; Stop 11/14/18 at 18:31; Status DC Etomidate (Amidate) 20 mg 1X ONCE IV Last administered on 11/14/18at 18:11; S tart 11/14/18 at 18:30; Stop 11/14/18 at 18:31; Status DC Rocuronium [place] (Zemuron) 50 mg 1X ONCE IV Last administered on 11/14/18 18:11; Start 11/14/18 at 18:30; Stop 11/14/18 at 18:31; Status DC Sodium Chloride 1,000 ml @ 1,000 mls/hr 1X ONCE IV Last administered on 11/14/18at 18:11; Start 11/14/18 at 18:30; Stop 11/14/18 at 19:29; Status DC Vancomycin HCl 1.75 gm/Sodium Chloride 500 ml @ 250 mls/hr 1X ONCE IV Last administered on 11/14/18 21:00; Start 11/14/18 at 19:00; Stop 11/14/18 at 20:59; Status DC Midazolam HCl 100 ml @ 5 mls/hr CONT PRN IV SEE I/O RECORD Last administered on 11/15/18at 06:05; Start 11/14/18 at 20:30; Stop 11/16/18 at 12:47; Status DC Sodium Chloride 1,000 ml @ 1,000 mls/hr 1X ONCE IV Last administered on 11/14/18 21:07; Start 11/14/18 at 21:00; Stop 11/14/18 at 21:59; Status DC Methylprednisolone Sodium Succinate (SOLU-Medrol 125MG VIAL) 125 mg Q12HR IV Last administered on 11/19/18at 08:54; Start 11/15/18 at 09:00; Stop 11/19/18 at 10:15; Status DC Albuterol/ Ipratropium (Duoneb) 3 ml Q4HRS NEB ; Start 11/15/18 at 00:00; Status Cancel Sodium Chloride 1,000 ml @ 75 mls/hr [id number] IV Last administered on 11/23/18at 06:11; Start 11/14/18 at 22:00 Sodium Chloride 1,000 ml @ 999 mls/hr 1X ONCE IV ; Start 11/14/18 at 20:45; Stop 11/14/18 at 21:45; Status UNV Albuterol/ Ipratropium (Duoneb) 3 ml RTQID NEB ; Start 11/15/18 at 08:00; Stop 11/15/18 at 08:00; Status DC Albuterol Sulfate (Ventolin Neb Soln) 2.5 mg PRN Q4HRS PRN NEB SHORTNESS OF BREATH Last administered on 11/15/18at 20:23; Start 11/14/18 at 20:45 Norepinephrine Bitartrate 250 ml @ 1.875 mls/ hr CONT PRN IV SEE I/O RECORD Last administered on 11/15/18at 02:33; Start 11/14/18 at 22:30; Stop 11/16/18 at 12:47; Status DC Sodium Chloride 1,000 ml @ 999 mls/hr 1X ONCE IV Last administered on 11/14/18at 22:55; Start 11/14/18 at 23:00; Stop 11/15/18 at 00:00; Status DC Albuterol/ Ipratropium (Duoneb) 3 ml Q4HRS NEB Last administered on 11/23/18at 11:23; Start 11/15/18 at 00:00 Vancomycin HCl 1 gm/Sodium Chloride 250 ml @ 250 mls/hr Q12H IV Last administered on 11/15/18at 09:53; Start 11/15/18 at 09:00; Stop 11/15/18 at 12:00; Status DC Vancomycin HCl (Vancomycin Trough Level) 1 each 1X ONCE MC ; Start 11/16/18 at 20:30; Stop 11/16/18 at 20:31; Status Cancel Fentanyl Citrate 30 ml @ 0 mls/hr CONT PRN IV SEE PROTOCOL Last administered on 11/16/18at 04:50; Start 11/15/18 at 07:45; Stop 11/16/18 at 12:47; Status DC Sodium Chloride 1,000 ml @ 1,000 mls/hr 1X ONCE IV Last administered on 11/15/18at 09:54; Start 11/15/18 at 09:15; Stop 11/15/18 at 10:14; Status DC Famotidine (Pepcid Vial) 20 mg BID IVP Last administered on 11/23/18at 10:11; Start 11/15/18 at 10:00 Enoxaparin Sodium (Lovenox Per Pharmacy Prophylaxis Dosing) 1 each DAILY MC Last administered on 11/17/18at 09:00; Start 11/16/18 at 09:00; Stop 11/21/18 at 13:17; Status DC Enoxaparin Sodium (Lovenox 40mg Syringe) 40 mg Q24H SQ Last administered on 11/23/18at 10:11; Start 11/15/18 at 10:00 Vancomycin HCl 1 gm/Sodium Chloride 250 ml @ 250 mls/hr Q18H IV Last administe red on 11/16/18at 03:01; Start 11/16/18 at 03:00; Stop 11/16/18 at 08:06; Status DC Lorazepam (Ativan Inj) 2 mg PRN Q4HRS PRN IV ANXIETY / AGITATION Last administered on 11/16/18at 15:28; Start 11/15/18 at 12:45; Stop 11/21/18 at 13:17; Status DC Propofol 100 ml @ 0 mls/hr CONT PRN IV SEE PROTOCOL Last administered on 11/16/18at 04:48; Start 11/15/18 at 16:15; Stop 11/16/18 at 12:47; Status DC Flumazenil (Romazicon) 0.1 mg 1X ONCE IV Last administered on 11/16/18at 16:46; Start 11/16/18 at 16:45; Stop 11/16/18 at 16:46; Status DC Flumazenil (Romazicon) 0.1 mg 1X ONCE IV Last administered on 11/16/18at 17:49; Start 11/16/18 at 17:45; Stop 11/16/18 at 17:49; Status DC Propofol 100 ml @ As Directed STK-MED ONCE IV ; Start 11/16/18 at 20:46; Stop 11/16/18 at 20:47; Status DC Propofol 100 ml @ 1.145 mls/ hr CONT PRN IV SEE I/O RECORD Last administered on 11/20/18at 08:17; Start 11/17/18 at 02:30; Stop 11/21/18 at 13:17; Status DC Fentanyl Citrate (Fentanyl 2ml Vial) 50 mcg PRN Q2HR PRN IV PAIN Last admi nistered on 11/17/18at 02:41; Start 11/17/18 at 02:30; Stop 11/21/18 at 13:17; Status DC Fentanyl Citrate 30 ml @ 0 mls/hr CONT PRN IV SEE PROTOCOL Last administered on 11/20/18at 06:39; Start 11/17/18 at 07:15; Stop 11/21/18 at 13:17; Status DC Dextrose (Dextrose 50%-Water Syringe) 12.5 gm PRN Q15MIN PRN IV SEE COMMENTS; Start 11/17/18 at 11:30; Stop 11/21/18 at 13:17; Status DC Propofol (Diprivan) 200 mg STK-MED ONCE IV ; Start 11/16/18 at 12:00; Stop 11/17/18 at 15:00; Status DC Rocuronium [place] (Zemuron) 50 mg STK-MED ONCE .ROUTE ; Start 11/16/18 at 12:00; Stop 11/17/18 at 15:00; Status DC Methylprednisolone Sodium Succinate (SOLU-Medrol 40MG VIAL) 40 mg Q12HR IV Last administered on 11/23/18at 10:11; Start 11/19/18 at 21:00 Piperacillin Sod/ Tazobactam Sod 3.375 gm/Sodium Chloride 50 ml @ 100 mls/hr Q6HRS IV Last administered on 11/23/18at 06:09; Start 11/21/18 at 08:00; Stop 11/23/18 at 07:23; Status DC Ondansetron HCl (Zofran) 4 mg PRN Q6HRS PRN IV NAUSEA/VOMITING Last administered on 11/21/18at 07:57; Start 11/21/18 at 08:00 Enoxaparin Sodium (Lovenox 40mg Syringe) 40 mg Q24H SQ ; Start 11/22/18 at 09:00; Status UNV Multivitamins (Thera M Plus) 1 tab DAILY PO ; Start 11/22/18 at 11:30 Active Scripts Active Guaifenesin Dm Syrup (Guaifenesin/Dextromethorphan) 5 Ml Syrup 10 Ml PO PRN Q6HRS PRN MDD 1 7 Days Reported Prednisone (Prednisone) 10 Mg Tablet 10 Mg PO DAILY Fluoxetine Hcl 20 Mg Capsule 20 Mg PO DAILY Incruse Ellipta (Umeclidinium [place]) 62.5 Mcg Blst.w.dev 62.5 Mcg IH DAILY Breo Ellipta 100-25 Mcg Inh (Fluticasone/Vilanterol) 1 Each Aer.pow.ba 1 Puff IH DAILY Tudorza Pressair (Aclidinium [place]) 400 Mcg Aer.pow.ba 400 Mcg IH DAILY Vitals/I & O Vital Sign - Last 24 Hours 11/22/18 11/22/18 11/22/18 11/22/18 14:00 15:00 16:00 16:00 Pulse 89 90 Resp 28 B/P (MAP) 117/71 (86) 92/77 (82) Pulse Ox 93 92 O2 Delivery Nasal Cannula Nasal Cannula Nasal Cannula O2 Flow Rate 4.0 4.0 4.0 4.0 11/22/18 11/22/18 11/22/18 11/22/18 16:00 16:06 17:00 18:00 Temp 98.2 98.2 Pulse 80 77 79 Resp 22 24 25 B/P (MAP) 136/67 (90) 140/83 (102) 144/69 (94) Pulse Ox 100 95 97 98 O2 Delivery Nasal Cannula Nasal Cannula Nasal Cannula Nasal Cannula O2 Flow Rate 4.0 4.0 4.0 4.0 11/22/18 11/22/18 11/22/18 11/22/18 19:00 20:00 20:00 20:00 Temp 98.7 98.7 Pulse 79 78 Resp 28 B/P (MAP) 139/76 (97) 127/77 (94) Pulse Ox 98 98 O2 Delivery Nasal Cannula Nasal Cannula Nasal Cannula O2 Flow Rate 4.0 4.0 4.0 4.0 11/22/18 11/22/18 11/22/18 11/22/18 20:09 21:00 22:00 23:00 Pulse 79 74 72 Resp 25 25 B/P (MAP) 135/68 (90) 124/73 (90) 120/68 (85) Pulse Ox 96 98 98 98 O2 Delivery Nasal Cannula Nasal Cannula BiPAP/CPAP BiPAP/CPAP O2 Flow Rate 2.0 4.0 11/22/1811/22/24 11//11/23/ 23:18 23:59 23:59 00:34 Temp 98.5 98.5 Pulse 72 Resp 25 B/P (MAP) 129/66 (87) Pulse Ox 99 96 O2 Delivery BiPAP/CPAP Nasal Cannula BiPAP/CPAP O2 Flow Rate 4.0 4.0 11/23/1811/23/24 11//11/23/ 01:00 01:38 02:00 03:00 Pulse 65 68 64 Resp 30 32 32 B/P (MAP) 114/64 (81) 130/73 (92) 128/70 (89) Pulse Ox 98 97 98 98 O2 Delivery BiPAP/CPAP BiPAP/CPAP BiPAP/CPAP BiPAP/CPAP 11/23/1811/23/24 11//11/23/18 03:02 04:00 04:00 04:00 Temp 98.2 98.2 Pulse 59 Resp 36 B/P (MAP) 119/69 (86) Pulse Ox 95 100 O2 Delivery BiPAP/CPAP BiPAP/CPAP Nasal Cannula O2 Flow Rate 4.0 4.0 11/23/1811/23/11/23/11/23/ 05:00 06:00 07:00 08:00 Temp 98.0 98.0 Pulse 66 69 76 78 Resp 30 22 20 20 B/P (MAP) 140/85 (103) 157/65 (95) 100/49 (66) 116/54 (74) Pulse Ox 94 94 100 100 O2 Delivery Nasal Cannula Nasal Cannula Nasal Cannula Nasal Cannula O2 Flow Rate 3.0 3.0 3.0 3.0 11/23/1811/23/11/23/11/23/ 08:00 08:00 08:37 09:00 Pulse 76 Resp 22 B/P (MAP) 106/56 (73) Pulse Ox 98 100 O2 Delivery Nasal Cannula Nasal Cannula Nasal Cannula O2 Flow Rate 3.0 4.0 2.0 3.0 11/23/1811/23/11/23/11/23/ 10:00 11:00 11:25 12:00 Temp 98.7 98.7 Pulse 96 90 98 Resp 20 21 21 B/P (MAP) 101/61 (74) 126/49 (74) 96/46 (63) Pulse Ox 100 100 98 O2 Delivery Nasal Cannula Nasal Cannula Nasal Cannula Nasal Cannula O2 Flow Rate 3.0 3.0 2.0 3.0 11/23/18 12:00 O2 Delivery Nasal Cannula O2 Flow Rate 3.0 Intake and Output 11/22/18 11/22/18 11/23/18 15:00 23:00 07:00 Intake Total 50 ml 858 ml 495 ml Output Total 980 ml 745 ml 650 ml Balance -930 ml 113 ml -155 ml JOSE RUBY MD Nov 23, 2018 13:22
--- NOTE | 2018-11-23 15:30 | NUR ---
SS following up with discharge planning. PT/OT recommended snf unit. Pt has Medicaid and does not have benefits for snf unit. Medicaid does have benefits for LTAC vs Acute Rehabilitation vs home with home healthcare. Palliative care continuing to follow. SS will continue to follow for discharge planning.
--- NOTE | 2018-11-23 16:47 | PDOC ---
PROGRESS NOTES Assessment Assessment Anisocoria. Hallucination, visual. Delusion. Confusion. Metabolic encephalopathy. Respiratory failure. COPD, maybe end stage. UTI. CHF. Cognitive impairment. Obesity. Longstanding history of smoking. RECOMMENDATIONS/PLAN: Brain MRI w/o contrast. EEG maybe needed. Treat medical diseases. Discussed with her daughter at bedside in ICU on 11/22/17. HISTORY OF THE PRESENT ILLNESS: This is a 63-year-old female patient with longstanding history of smoking for more than 30 years, COPD, respiratory failure with weakness and dyspnea and confusion. She was hospitalized for further evaluation and treatment on 11/14/18. Neurology was requested for consultation for her visual hallucinations as seeing a cat in room, and she also had delusion saying airplane crashed. Past Medical History COPD Past Surgical History No major surgery recently. Family History Hypertension ALLERGY: NKDA MEDICATIONS: Refer to MAR SOCIAL HISTORY: Denies illicit drug use. She smoked 1 pack of cigarettes a day for more than 30 years but quit recently. She drinks alcohol occasionally. REVIEW OF SYSTEMS: Constitutional: No malnutrition, weight loss, cachexia. Head: No traumatic brain or head injury. Skin: No edema, or rash. Ear: No infection. Eyes: No vision loss or color blindness. Nose: No bleeding or purulent discharges. Hearing: Hearing decrease. Neck: No injury. Breast: No history of cancer, masses,or discharges. Cardiac: No [place], arrhythmia. Pulmonary: COPD. GI: No GI ulcer, GI bleeding. Urinary/genital: UTI. Endocrinologic: No cousin face, craniofacial dysmorphism. Skeletomuscular: No muscular atrophy, deformity. Neurological: see HP. Psychiatric: Denies drug use/abuse. Otherwise, not [id number] review of systems. PHYSICAL EXAMINATION: General appearance is in subacute distress. HEENT: Normocephalic and nontraumatic. Eyes, nose, ears, and throat are unremarkable. Neck is supple. No lymphadenopathy. No crepitus. Cardiovascular: S1, S2, regular rate and rhythm. Pulmonary: Breath sounds decreased to auscultation bilaterally. Abdomen: Bowel sounds are positive. Extremities: No rash, lesions, or edema. No restriction of range of motion NEUROLOGICAL EXAMINATION: Sleepiness. Not oriented to time, but new place and person. Right pupil 1.5 mm, left 2-3 mm, both reaction to light stimuli but left side not as sensitive as right one. EOMI. CN: no focal findings. Muscle tone: within normal. Muscle strength: 5- DTR: 1-2 Plantar reflex: Neutral response bilaterally Gait: not examined in bed. Sensory exam: no abnormal findings. No other cerebellar signs elicited. F-T-N test not accurate on left hand Objective Objective Vital Signs Date Time Temp Pulse Resp B/P (MAP) Pulse Ox O2 Delivery O2 Flow Rate FiO2 11/23/18 16:11 Nasal Cannula 3.0 11/23/18 16:05 97 11/23/18 16:00 74 34 132/77 (95) 11/23/18 12:00 98.7 98.7 Intake and Output 11/23/18 06:59 Intake Total 1403 ml Output Total 2450 ml Balance -1047 ml Intake Oral 0 ml IV Total 1403 ml Tube Feeding 0 ml Output Urine Total 2450 ml Vitals Signs Vitals VS - Last 72 Hours, by Label Date Time Temp Pulse Resp B/P (MAP) Pulse Ox O2 Delivery O2 Flow Rate FiO2 11/23/18 16:11 Nasal Cannula 3.0 11/23/18 16:05 97 Nasal Cannula 2.0 11/23/18 16:00 74 34 132/77 (95) Nasal Cannula 3.0 11/23/18 15:00 62 34 146/78 (100) Nasal Cannula 3.0 11/23/18 14:00 68 30 116/64 (81) 30 BiPAP/CPAP 11/23/18 13:21 90 BiPAP/CPAP 11/23/18 13:00 76 34 110/66 (81) 30 BiPAP/CPAP 11/23/18 12:00 Nasal Cannula 3.0 11/23/18 12:00 98.7 98 21 96/46 (63) Nasal Cannula 3.0 98.7 11/23/18 11:25 98 Nasal Cannula 2.0 11/23/18 11:00 90 21 126/49 (74) 100 Nasal Cannula 3.0 11/23/18 10:00 96 20 101/61 (74) 100 Nasal Cannula 3.0 11/23/18 09:00 76 22 106/56 (73) 100 Nasal Cannula 3.0 11/23/18 08:37 98 Nasal Cannula 2.0 11/23/18 08:00 4.0 11/23/18 08:00 Nasal Cannula 3.0 11/23/18 08:00 98.0 78 20 116/54 (74) 100 Nasal Cannula 3.0 98.0 11/23/18 07:00 76 20 100/49 (66) 100 Nasal Cannula 3.0 11/23/18 06:00 69 22 157/65 (95) 94 Nasal Cannula 3.0 11/23/18 05:00 66 30 140/85 (103) 94 Nasal Cannula 3.0 11/23/18 04:00 Nasal Cannula 4.0 11/23/18 04:00 4.0 11/23/18 04:00 98.2 59 36 119/69 (86) 100 BiPAP/CPAP 98.2 11/23/18 03:02 95 BiPAP/CPAP 11/23/18 03:00 64 32 128/70 (89) 98 BiPAP/CPAP 11/23/18 02:00 68 32 130/73 (92) 98 BiPAP/CPAP 11/23/18 01:38 97 BiPAP/CPAP 11/23/18 01:00 65 30 114/64 (81) 98 BiPAP/CPAP 11/23/18 00:34 4.0 11/22/18 23:59 98.5 72 25 129/66 (87) 96 BiPAP/CPAP 98.5 11/22/18 23:59 Nasal Cannula 4.0 11/22/18 23:18 99 BiPAP/CPAP 11/22/18 23:00 72 25 120/68 (85) 98 BiPAP/CPAP 11/22/18 22:00 74 25 124/73 (90) 98 BiPAP/CPAP 11/22/18 21:00 79 28 135/68 (90) 98 Nasal Cannula 4.0 11/22/18 20:09 96 Nasal Cannula 2.0 11/22/18 20:00 Nasal Cannula 4.0 11/22/18 20:00 98.7 78 28 127/77 (94) 98 Nasal Cannula 4.0 98.7 11/22/18 20:00 4.0 11/22/18 19:00 79 28 139/76 (97) 98 Nasal Cannula 4.0 11/22/18 18:00 79 25 144/69 (94) 98 Nasal Cannula 4.0 11/22/18 17:00 77 24 140/83 (102) 97 Nasal Cannula 4.0 11/22/18 16:06 95 Nasal Cannula 4.0 11/22/18 16:00 98.2 80 22 136/67 (90) 100 Nasal Cannula 4.0 98.2 11/22/18 16:00 4.0 11/22/18 16:00 Nasal Cannula 4.0 11/22/18 15:00 90 28 92/77 (82) 92 Nasal Cannula 4.0 11/22/18 14:00 89 26 117/71 (86) 93 Nasal Cannula 4.0 11/22/18 13:00 88 26 134/66 (88) 91 Nasal Cannula 4.0 11/22/18 12:25 93 Nasal Cannula 4.0 11/22/18 12:00 Nasal Cannula 4.0 11/22/18 12:00 98.4 84 34 129/75 (93) 96 BiPAP/CPAP 98.4 11/22/18 11:00 86 21 110/65 (80) 93 Nasal Cannula 4.0 11/22/18 10:00 87 26 125/62 (83) 93 Nasal Cannula 4.0 11/22/18 09:00 79 25 136/71 (92) 98 Nasal Cannula 4.0 11/22/18 08:58 97 Nasal Cannula 3.0 11/22/18 08:00 Nasal Cannula 4.0 11/22/18 08:00 4.0 11/22/18 08:00 98.2 87 21 113/72 (86) 95 Nasal Cannula 4.0 98.2 11/22/18 07:00 85 26 105/58 (74) 95 Nasal Cannula 4.0 Laboratory Laboratory Laboratory Tests Test 11/22/18 18:34 11/23/18 06:00 O2 Saturation 96 % (92-99) Arterial Blood pH 7.36 (7.35-7.45) Arterial Blood pCO2 at Patient Temp 57 mmHg (35-46) Arterial Blood pO2 at Patient Temp 87 mmHg (65-108) Arterial Blood HCO3 32 mmol/L (21-28) Arterial Blood Base Excess 5 mmol/L (-3-3) FiO2 40 White Blood Count 13.3 x10^3/uL (4.0-11.0) Red Blood Count 3.52 x10^6/uL (3.50-5.40) Hemoglobin 10.4 g/dL (12.0-15.5) Hematocrit 31.2 % (36.0-47.0) Mean Corpuscular Volume 89 fL (79-100) Mean Corpuscular Hemoglobin 30 pg (25-35) Mean Corpuscular Hemoglobin Concent 33 g/dL (31-37) Red Cell Distribution Width 14.8 % (11.5-14.5) Platelet Count 238 x10^3/uL (140-400) Neutrophils (%) (Auto) 85 % (31-73) Lymphocytes (%) (Auto) 7 % (24-48) Monocytes (%) (Auto) 7 % (0-9) Eosinophils (%) (Auto) 0 % (0-3) Basophils (%) (Auto) 0 % (0-3) Neutrophils # (Auto) 11.4 x10^3/uL (1.8-7.7) Lymphocytes # (Auto) 1.0 x10^3/uL (1.0-4.8) Monocytes # (Auto) 1.0 x10^3/uL (0.0-1.1) Eosinophils # (Auto) 0.0 x10^3/uL (0.0-0.7) Basophils # (Auto) 0.0 x10^3/uL (0.0-0.2) Sodium Level 144 mmol/L (136-145) Potassium Level 3.5 mmol/L (3.5-5.1) Chloride Level 103 mmol/L (98-107) Carbon Dioxide Level 35 mmol/L (21-32) Anion Gap 6 (6-14) Blood Urea Nitrogen 13 mg/dL (7-20) Creatinine 0.4 mg/dL (0.6-1.0) Estimated GFR (Cockcroft-Gault) 160.7 Glucose Level 85 mg/dL (70-99) Calcium Level 8.6 mg/dL (8.5-10.1) Phosphorus Level 3.2 mg/dL (2.6-4.7) Magnesium Level 1.9 mg/dL (1.8-2.4) Albumin 2.7 g/dL (3.4-5.0) Microbiology 11/14/18 Blood Culture - Final, Complete NO GROWTH AFTER 5 DAYS 11/14/18 Urine Culture - Final, Complete 11/14/18 Urine Culture Result 1 (KRISTA) - Final, Complete Comment Review of Relevant I have reviewed the following items heaven (where applicable) has been applied. MARTIN FIELD MD Nov 23, 2018 16:47
--- NOTE | 2018-11-23 18:44 | NUR ---
daughter Tiana took phone home
[2018-11-24] VITALS (15 sets, daily range): BP systolic 119–169; BP diastolic 62–90
[2018-11-24] MEDS: IPRATRPIUM/ALBUTEROL 0.5/2.5MG 3 ML NEBU. NEB SCH ×5 (03:43→20:20)
--- NOTE | 2018-11-24 06:39 | PDOC ---
Infectious Disease Note Subjective Subjective Sleepy but awakened. Had a late bath. Doing ok. No Pain/F/C/S/SOA/N/itch -cough ROS ROS o/w neg Vital Sign Vital Signs Vital Signs Date Time Temp Pulse Resp B/P (MAP) Pulse Ox O2 Delivery O2 Flow Rate FiO2 11/24/18 06:05 63 25 163/74 (103) 97 BiPAP/CPAP 11/24/18 04:00 4.0 11/24/18 04:00 98.4 98.4 Physical Exam PHYSICAL EXAM GENERAL:NAD, Very Alert coop - pleasant. Came off bipap to NC no problem HEENT: Pupils equal, edentulous and clear NECK: Supple. LUNGS: Clear anteriorly HEART: S1, S2. + murmur ABDOMEN: little distended, soft, + BS : Carvalho in place EXTREMITIES: No cyanosis, 1 edema. LUE1 -2 DERMATOLOGIC: Warm, dry. No generalized rash. NEUROLOGIC: alert/coop PIV Labs Micro Microbiology 11/14/18 Blood Culture - Final, Complete NO GROWTH AFTER 5 DAYS 11/14/18 Urine Culture - Final, Complete 11/14/18 Urine Culture Result 1 (KRISTA) - Final, Complete Objective Assessment N/Vomiting - better Hypotension, questionable sepsis. - off Levophed since 11/16 leukocytosis - on steroids - stable Acute on chronic respiratory failure.- now extubated Suspected emphysema. Moderate aortic stenosis. Encephalopathy, likely metabolic - resolved, Anxiety. Obstructive sleep apnea. Protein-calorie malnutrition. Anemia. Plan Plan of Care D/c Zosyn 11/21 - 11/23 for aspiration Clinically improved ID to sign off D/w nursing GENARO PEPPER MD Nov 24, 2018 06:39
[2018-11-24] MEDS: MULTIVITAMIN with MINERAL TABLET. PO SCH (08:01)
[2018-11-24] MEDS: IV NORMAL SALINE 1000ML BAG 1,000 ML IV SCH ×2 (08:48→23:38)
[2018-11-24] MEDS: FAMOTIDINE 20 MG/2 ML VIAL IVP SCH ×2 (08:48→20:46)
[2018-11-24] MEDS: methylPREDNISolone SOD SUCC PF 40 MG/ML VIAL. IV SCH (08:48)
[2018-11-24] MEDS: ENOXAPARIN 40 MG/0.4 ML SYRINGE. SQ SCH (08:48)
--- NOTE | 2018-11-24 10:51 | RAD ---
BRAIN W/O CONTRAST History: Mental status changes. Left pupil dilated. Technique: Multiplanar, multi sequential MR imaging was performed of the brain without contrast. Comparison: None Findings: T2/FLAIR hyperintense subcortical/cortical lesions within the bilateral occipital lobes. Additional T2/FLAIR hyperintensity within the left inferior cerebellum. Additional signal abnormality within the bilateral brachium pontis. Minimal additional T2/FLAIR hyperintensities within the hemispheric white matter, likely within normal range for age. No acute infarct. No intracranial hemorrhage. No hydrocephalus. Extra-axial spaces are unremarkable. Postoperative changes bilateral globes. Right maxillary sinus mucosal thickening inferiorly. Right maxillary sinus chronic osteitis. Secretions within the right sphenoid sinus. Mastoid air cells are clear. Impression: 1. Multifocal T2/FLAIR hyperintense foci within the subcortical/cortical occipital lobes including the left inferior cerebellum. Recommend contrast to further evaluate and exclude underlying lesions. Alternatively findings may relate to subacute infarcts, less likely PRESS. 2. Bilateral brachium pontis signal abnormalities. Recommend attention on postcontrast imaging. Electronically signed by: Tesfaye Dave DO (11/24/2018 10:48 AM) [facility]
--- NOTE | 2018-11-24 11:10 | NUR ---
Patient transferred to [facility] via bed at 1100. BiPap and all patient belongings taken with patient at time of transfer.
--- NOTE | 2018-11-24 11:26 | PDOC ---
PULMONARY PROGRESS NOTES Subjective extubated 11/21 no soa Vitals Vital Signs Date Time Temp Pulse Resp B/P (MAP) Pulse Ox O2 Delivery O2 Flow Rate FiO2 11/24/18 09:19 Nasal Cannula 3.0 11/24/18 08:15 98 11/24/18 08:00 65 25 143/74 (97) 11/24/18 04:00 98.4 98.4 General: Alert, No acute distress HEENT: Other (nc at perrl nose clear orally intubated neck no lad, no thyromegaly) Lungs: Other (decrease bs) Cardiovascular: S1, S2 Abdomen: Soft, Non-tender, Other (no mass) Neuro Exam: Alert Extremities: No Edema Skin: Warm Labs Laboratory Tests Test 11/22/18 18:34 11/23/18 06:00 O2 Saturation 96 % (92-99) Arterial Blood pH 7.36 (7.35-7.45) Arterial Blood pCO2 at Patient Temp 57 mmHg (35-46) Arterial Blood pO2 at Patient Temp 87 mmHg (65-108) Arterial Blood HCO3 32 mmol/L (21-28) Arterial Blood Base Excess 5 mmol/L (-3-3) FiO2 40 White Blood Count 13.3 x10^3/uL (4.0-11.0) Red Blood Count 3.52 x10^6/uL (3.50-5.40) Hemoglobin 10.4 g/dL (12.0-15.5) Hematocrit 31.2 % (36.0-47.0) Mean Corpuscular Volume 89 fL (79-100) Mean Corpuscular Hemoglobin 30 pg (25-35) Mean Corpuscular Hemoglobin Concent 33 g/dL (31-37) Red Cell Distribution Width 14.8 % (11.5-14.5) Platelet Count 238 x10^3/uL (140-400) Neutrophils (%) (Auto) 85 % (31-73) Lymphocytes (%) (Auto) 7 % (24-48) Monocytes (%) (Auto) 7 % (0-9) Eosinophils (%) (Auto) 0 % (0-3) Basophils (%) (Auto) 0 % (0-3) Neutrophils # (Auto) 11.4 x10^3/uL (1.8-7.7) Lymphocytes # (Auto) 1.0 x10^3/uL (1.0-4.8) Monocytes # (Auto) 1.0 x10^3/uL (0.0-1.1) Eosinophils # (Auto) 0.0 x10^3/uL (0.0-0.7) Basophils # (Auto) 0.0 x10^3/uL (0.0-0.2) Sodium Level 144 mmol/L (136-145) Potassium Level 3.5 mmol/L (3.5-5.1) Chloride Level 103 mmol/L (98-107) Carbon Dioxide Level 35 mmol/L (21-32) Anion Gap 6 (6-14) Blood Urea Nitrogen 13 mg/dL (7-20) Creatinine 0.4 mg/dL (0.6-1.0) Estimated GFR (Cockcroft-Gault) 160.7 Glucose Level 85 mg/dL (70-99) Calcium Level 8.6 mg/dL (8.5-10.1) Phosphorus Level 3.2 mg/dL (2.6-4.7) Magnesium Level 1.9 mg/dL (1.8-2.4) Albumin 2.7 g/dL (3.4-5.0) Medications Active Scripts Medications Dose Route/Sig Max Daily Dose Days Date Category Guaifenesin Dm Syrup (Guaifenesin/Dextromethorphan) 5 Ml Syrup 10 Ml PO PRN Q6HRS PRN MDD 1 7 10/03/18 Rx Incruse Ellipta (Umeclidinium [place]) 62.5 Mcg Blst.w.dev 62.5 Mcg IH DAILY 07/11/17 Reported Breo Ellipta 100-25 Mcg Inh (Fluticasone/Vilanterol) 1 Each Aer.pow.ba 1 Puff IH DAILY 07/11/17 Reported Tudorza Pressair (Aclidinium [place]) 400 Mcg Aer.pow.ba 400 Mcg IH DAILY 07/11/17 Reported Comments CXR 11/22, reviewed no new infiltrates Impression . 1. Cefya-jq-hfewnct hypercapnic respiratory failure secondary to acute exacerbation of chronic obstructive pulmonary disease and also shock. Re- intubated 11/16, extubated 11/21 2. Shock, likely a combination of hypovolemic and septic shock. off levo, resolved 3. Low-grade fever POA. Source could be in the lungs, although chest x-ray does not show definite consolidation , no further fever 4. Suspect underlying severe chronic obstructive pulmonary disease with chronic hypercapnia. 5. Mild azotemia. 6. Bemz-ax-pqjktavm protein-calorie malnutrition. 7. Moderate Plan . 1. prn BIPAP for dyspnea. ABG adequate. d/w RN 2. OFF antibiotics. 3. Follow cultures. neg so far 4. steroids 5. off Levophed .keep systolic pressure above 100. 6. Continue DuoNeb. 7. Deep venous thrombosis prophylaxis. 8. Stress ulcer prophylaxis. 9. elevate hob Discussed with RN,D/W patient and another daughter at the bed side 11/23 Patient now wants to be a full code. she understands that if re-intubated, she will need tracheostomy and live in NH on vent. XENA MCGRAW MD Nov 24, 2018 11:26
--- NOTE | 2018-11-24 13:43 | RAD ---
Indication:. Dyspnea. TECHNIQUE:Portable AP chest X-ray COMPARISON: 11/22/2018 FINDINGS: Heart is normal in size. Lungs are hyperinflated with interstitial opacities. No focal consolidation. No pneumothorax or pleural effusion. Visualized bony thorax is within normal limits. IMPRESSION: COPD superimposed atypical/viral infection not ruled out. Electronically signed by: Yehuda Vaz DO (11/24/2018 1:40 PM) [facility]
--- NOTE | 2018-11-24 14:11 | NUR ---
Order received from Dr. Snider to transfer patient back to ICU. Stat ABG ordered.
[2018-11-24 14:24] LABS: BASE EXCESS ABG 10 mmol/L (-3-3); HCO3 ABG 36 mmol/L (21-28); PCO2 ABG 53 mmHg (35-46); PO2 ABG 73 mmHg (65-108); SAT O2 ABG 95 % (92-99)
[2018-11-24 14:53] LABS: FIO2 ABG 30
--- NOTE | 2018-11-24 16:56 | PDOC ---
PROGRESS NOTES Assessment Assessment Anisocoria. Hallucination, visual. Multiple lesions in brain. Delusion. Confusion. Metabolic encephalopathy. Respiratory failure. COPD, maybe end stage. UTI. CHF. Cognitive impairment. Obesity. Longstanding history of smoking. RECOMMENDATIONS/PLAN: Repeat brain MRI with contrast. Non contrast MRI performed today on 01/25/19. EEG. Treat medical diseases. Discussed with her daughter at bedside in ICU before. HISTORY OF THE PRESENT ILLNESS: This is a 63-year-old female patient with longstanding history of smoking for more than 30 years, COPD, respiratory failure with weakness and dyspnea and confusion. She was hospitalized for further evaluation and treatment on 11/14/18. Neurology was requested for consultation for her visual hallucinations as seeing a cat in room, and she also had delusion saying airplane crashed. Past Medical History COPD Past Surgical History No major surgery recently. Family History Hypertension ALLERGY: NKDA MEDICATIONS: Refer to MAR SOCIAL HISTORY: Denies illicit drug use. She smoked 1 pack of cigarettes a day for more than 30 years but quit recently. She drinks alcohol occasionally. REVIEW OF SYSTEMS: Constitutional: No malnutrition, weight loss, cachexia. Head: No traumatic brain or head injury. Skin: No edema, or rash. Ear: No infection. Eyes: No vision loss or color blindness. Nose: No bleeding or purulent discharges. Hearing: Hearing decrease. Neck: No injury. Breast: No history of cancer, masses,or discharges. Cardiac: No [place], arrhythmia. Pulmonary: COPD. GI: No GI ulcer, GI bleeding. Urinary/genital: UTI. Endocrinologic: No cousin face, craniofacial dysmorphism. Skeletomuscular: No muscular atrophy, deformity. Neurological: see HP. Psychiatric: Denies drug use/abuse. Otherwise, not [id number] review of systems. PHYSICAL EXAMINATION: General appearance is in subacute distress. HEENT: Normocephalic and nontraumatic. Eyes, nose, ears, and throat are unremarkable. Neck is supple. No lymphadenopathy. No crepitus. Cardiovascular: S1, S2, regular rate and rhythm. Pulmonary: Breath sounds decreased to auscultation bilaterally. Abdomen: Bowel sounds are positive. Extremities: No rash, lesions, or edema. No restriction of range of motion NEUROLOGICAL EXAMINATION: Sleepiness. Not oriented to time, but new place and person. Right pupil 1.5 mm, left 2-3 mm, both reaction to light stimuli but left side not as sensitive as right one. EOMI. CN: no focal findings. Muscle tone: within normal. Muscle strength: 5- DTR: 1-2 Plantar reflex: Neutral response bilaterally Gait: not examined in bed. Sensory exam: no abnormal findings. No other cerebellar signs elicited. F-T-N test not accurate on left hand Objective Objective Vital Signs Date Time Temp Pulse Resp B/P (MAP) Pulse Ox O2 Delivery O2 Flow Rate FiO2 11/24/18 15:16 94 BiPAP/CPAP 11/24/18 12:00 3.0 11/24/18 11:30 98.0 70 18 154/83 (106) 98.0 Intake and Output 11/24/18 07:00 Intake Total 1058 ml Output Total 3115 ml Balance -2057 ml Intake Oral 0 ml IV Total 1058 ml Output Urine Total 3115 ml Vitals Signs Vitals VS - Last 72 Hours, by Label Date Time Temp Pulse Resp B/P (MAP) Pulse Ox O2 Delivery O2 Flow Rate FiO2 11/24/18 15:16 94 BiPAP/CPAP 11/24/18 14:50 94 BiPAP/CPAP 11/24/18 14:00 94 BiPAP/CPAP 11/24/18 13:01 94 BiPAP/CPAP 11/24/18 12:00 Nasal Cannula 3.0 11/24/18 12:00 2.0 11/24/18 11:50 Nasal Cannula 2.0 11/24/18 11:30 98.0 70 18 154/83 (106) 96 Nasal Cannula 4.0 98.0 11/24/18 09:19 Nasal Cannula 3.0 11/24/18 08:15 98 Nasal Cannula 2.0 11/24/18 08:00 65 25 143/74 (97) 97 Nasal Cannula 4.0 11/24/18 08:00 Nasal Cannula 3.0 11/24/18 08:00 4.0 11/24/18 06:05 63 25 163/74 (103) 97 BiPAP/CPAP 11/24/18 05:00 63 25 139/74 (95) 96 BiPAP/CPAP 11/24/18 04:00 4.0 11/24/18 04:00 98.4 62 25 139/74 (95) 97 BiPAP/CPAP 98.4 11/24/18 04:00 Nasal Cannula 3.0 11/24/18 03:43 94 BiPAP/CPAP 11/24/18 03:00 63 25 141/81 (101) 96 BiPAP/CPAP 11/24/18 02:00 62 21 160/90 (113) 94 BiPAP/CPAP 11/24/18 01:00 98.5 63 169/85 (113) 94 BiPAP/CPAP 98.5 11/24/18 00:53 94 BiPAP/CPAP 11/23/18 23:59 Nasal Cannula 3.0 11/23/18 23:59 62 167/92 (117) 94 BiPAP/CPAP 11/23/18 23:59 4.0 11/23/18 23:22 94 BiPAP/CPAP 11/23/18 23:00 64 157/86 (109) 98 BiPAP/CPAP 11/23/18 22:00 74 161/88 (112) 98 BiPAP/CPAP 25.0 11/23/18 21:00 74 160/80 (106) 98 Nasal Cannula 3.0 11/23/18 20:24 96 Nasal Cannula 2.0 11/23/18 20:06 98.3 74 157/73 (101) 96 Nasal Cannula 3.0 98.3 11/23/18 20:00 Nasal Cannula 3.0 11/23/18 20:00 4.0 11/23/18 19:00 77 143/71 (95) 98 Nasal Cannula 3.0 11/23/18 18:00 68 149/76 (100) 98 Nasal Cannula 3.0 11/23/18 17:00 98.6 74 140/70 (93) 96 Nasal Cannula 3.0 98.6 11/23/18 16:11 Nasal Cannula 3.0 11/23/18 16:05 97 Nasal Cannula 2.0 11/23/18 16:00 74 34 132/77 (95) Nasal Cannula 3.0 11/23/18 15:00 62 34 146/78 (100) Nasal Cannula 3.0 11/23/18 14:00 68 30 116/64 (81) 30 BiPAP/CPAP 11/23/18 13:21 90 BiPAP/CPAP 11/23/18 13:00 76 34 110/66 (81) 30 BiPAP/CPAP 11/23/18 12:00 Nasal Cannula 3.0 11/23/18 12:00 98.7 98 21 96/46 (63) Nasal Cannula 3.0 98.7 11/23/18 11:25 98 Nasal Cannula 2.0 11/23/18 11:00 90 21 126/49 (74) 100 Nasal Cannula 3.0 11/23/18 10:00 96 20 101/61 (74) 100 Nasal Cannula 3.0 11/23/18 09:00 76 22 106/56 (73) 100 Nasal Cannula 3.0 11/23/18 08:37 98 Nasal Cannula 2.0 11/23/18 08:00 4.0 11/23/18 08:00 Nasal Cannula 3.0 11/23/18 08:00 98.0 78 20 116/54 (74) 100 Nasal Cannula 3.0 98.0 11/23/18 07:00 76 20 100/49 (66) 100 Nasal Cannula 3.0 Laboratory Laboratory Laboratory Tests Test 11/24/18 14:03 O2 Saturation 95 % (92-99) Arterial Blood pH 7.45 (7.35-7.45) Arterial Blood pCO2 at Patient Temp 53 mmHg (35-46) Arterial Blood pO2 at Patient Temp 73 mmHg (65-108) Arterial Blood HCO3 36 mmol/L (21-28) Arterial Blood Base Excess 10 mmol/L (-3-3) FiO2 30 Microbiology 11/14/18 Blood Culture - Final, Complete NO GROWTH AFTER 5 DAYS 11/14/18 Urine Culture - Final, Complete 11/14/18 Urine Culture Result 1 (KRISTA) - Final, Complete Medication Medications Current Medications Prednisone (Prednisone) 30 mg DAILY PO ; Start 11/25/18 at 09:00 Comment Review of Relevant I have reviewed the following items heaven (where applicable) has been applied. MARTIN FIELD MD Nov 24, 2018 16:56
--- NOTE | 2018-11-24 16:57 | PDOC ---
PROGRESS NOTES Chief Complaint Chief Complaint acute hypoxic and hypercarbic respiratory failure back on bipap today, may need to get reintubated, discussed with palliative care History of Present Illness History of Present Illness breathing much better today, will try transfer to the floor, speech therepy to follow, cont care 11/24 to [facility], back on bipap 11/23 extubated 11/21 prn Levophed to keep systolic pressure above 100. cont iv zosyn Steroids iv, taper neurology consult PT/OT/ST Vitals Vitals Vital Signs Date Time Temp Pulse Resp B/P (MAP) Pulse Ox O2 Delivery O2 Flow Rate FiO2 11/24/18 15:16 94 BiPAP/CPAP 11/24/18 12:00 3.0 11/24/18 11:30 98.0 70 18 154/83 (106) 98.0 Physical Exam Physical Exam GENERAL:NAD, Very Alert coop - pleasant. Came off bipap to VT no problem HEENT: Pupils equal, edentulous and clear NECK: Supple. LUNGS: Clear anteriorly HEART: S1, S2. + murmur ABDOMEN: little distended, soft, + BS : Carvalho in place EXTREMITIES: No cyanosis, 1 edema. LUE1 -2 DERMATOLOGIC: Warm, dry. No generalized rash. NEUROLOGIC: alert/coop PIV General: Alert, Cooperative, No acute distress, Other (confused to details) Heart: Regular rate (SR no ectopies), Other (3/6 systolic murmur to AKIN border) Lungs: Other (decrease bs) Abdomen: Normal bowel sounds, Soft, No tenderness Extremities: No clubbing, No cyanosis Skin: No breakdown, No significant lesion Labs LABS Laboratory Tests Test 11/24/18 14:03 O2 Saturation 95 % (92-99) Arterial Blood pH 7.45 (7.35-7.45) Arterial Blood pCO2 at Patient Temp 53 mmHg (35-46) Arterial Blood pO2 at Patient Temp 73 mmHg (65-108) Arterial Blood HCO3 36 mmol/L (21-28) Arterial Blood Base Excess 10 mmol/L (-3-3) FiO2 30 Assessment and Plan Assessmemt and Plan Problems Medical Problems: (1) Acute hypercapnic respiratory failure Status: Acute Comment Review of Relevant I have reviewed the following items heaven (where applicable) has been applied. Labs Laboratory Tests Test 11/22/18 18:34 11/23/18 06:00 11/24/18 14:03 O2 Saturation 96 % (92-99) 95 % (92-99) Arterial Blood pH 7.36 (7.35-7.45) 7.45 (7.35-7.45) Arterial Blood pCO2 at Patient Temp 57 mmHg (35-46) 53 mmHg (35-46) Arterial Blood pO2 at Patient Temp 87 mmHg (65-108) 73 mmHg (65-108) Arterial Blood HCO3 32 mmol/L (21-28) 36 mmol/L (21-28) Arterial Blood Base Excess 5 mmol/L (-3-3) 10 mmol/L (-3-3) FiO2 40 30 White Blood Count 13.3 x10^3/uL (4.0-11.0) Red Blood Count 3.52 x10^6/uL (3.50-5.40) Hemoglobin 10.4 g/dL (12.0-15.5) Hematocrit 31.2 % (36.0-47.0) Mean Corpuscular Volume 89 fL (79-100) Mean Corpuscular Hemoglobin 30 pg (25-35) Mean Corpuscular Hemoglobin Concent 33 g/dL (31-37) Red Cell Distribution Width 14.8 % (11.5-14.5) Platelet Count 238 x10^3/uL (140-400) Neutrophils (%) (Auto) 85 % (31-73) Lymphocytes (%) (Auto) 7 % (24-48) Monocytes (%) (Auto) 7 % (0-9) Eosinophils (%) (Auto) 0 % (0-3) Basophils (%) (Auto) 0 % (0-3) Neutrophils # (Auto) 11.4 x10^3/uL (1.8-7.7) Lymphocytes # (Auto) 1.0 x10^3/uL (1.0-4.8) Monocytes # (Auto) 1.0 x10^3/uL (0.0-1.1) Eosinophils # (Auto) 0.0 x10^3/uL (0.0-0.7) Basophils # (Auto) 0.0 x10^3/uL (0.0-0.2) Sodium Level 144 mmol/L (136-145) Potassium Level 3.5 mmol/L (3.5-5.1) Chloride Level 103 mmol/L (98-107) Carbon Dioxide Level 35 mmol/L (21-32) Anion Gap 6 (6-14) Blood Urea Nitrogen 13 mg/dL (7-20) Creatinine 0.4 mg/dL (0.6-1.0) Estimated GFR (Cockcroft-Gault) 160.7 Glucose Level 85 mg/dL (70-99) Calcium Level 8.6 mg/dL (8.5-10.1) Phosphorus Level 3.2 mg/dL (2.6-4.7) Magnesium Level 1.9 mg/dL (1.8-2.4) Albumin 2.7 g/dL (3.4-5.0) Laboratory Tests Test 11/24/18 14:03 O2 Saturation 95 % (92-99) Arterial Blood pH 7.45 (7.35-7.45) Arterial Blood pCO2 at Patient Temp 53 mmHg (35-46) Arterial Blood pO2 at Patient Temp 73 mmHg (65-108) Arterial Blood HCO3 36 mmol/L (21-28) Arterial Blood Base Excess 10 mmol/L (-3-3) FiO2 30 Microbiology 11/14/18 Blood Culture - Final, Complete NO GROWTH AFTER 5 DAYS 11/14/18 Urine Culture - Final, Complete 11/14/18 Urine Culture Result 1 (KRISTA) - Final, Complete Medications Current Medications Methylprednisolone Sodium Succinate (SOLU-Medrol 125MG VIAL) 125 mg 1X ONCE IV Last administered on 11/14/18at 17:14; Start 11/14/18 at 16:45; Stop 11/14/18 at 16:46; Status DC Albuterol/ Ipratropium (Duoneb) 3 ml 1X ONCE NEB Last administered on 11/14/18at 17:04; Start 11/14/18 at 16:45; Stop 11/14/18 at 16:46; Status DC Ondansetron HCl (Zofran) 4 mg 1X ONCE IV Last administered on 11/14/18at 17:13; Start 11/14/18 at 17:00; Stop 11/14/18 at 17:01; Status DC Propofol 0 ml @ As Directed STK-MED ONCE IV ; Start 11/14/18 at 18:09; Stop 11/14/18 at 18:10; Status DC Etomidate (Amidate) 20 mg STK-MED ONCE IV ; Start 11/14/18 at 18:17; Stop 11/14/18 at 18:18; Status DC Rocuronium [place] (Zemuron) 50 mg STK-MED ONCE .ROUTE ; Start 11/14/18 at 18:17; Stop 11/14/18 at 18:18; Status DC Propofol 100 ml @ 0 mls/hr CONT PRN IV SEE PROTOCOL Last administered on at 18:00; Start 11/14/18 at 18:30; Stop 11/15/18 at 07:38; Status DC Chlorhexidine Gluconate (Peridex) 15 ml BID MM ; Start 11/14/18 at 21:00; Stop 11/15/18 at 16:12; Status DC Midazolam HCl 100 ml @ 0 mls/hr CONT PRN IV SEE PROTOCOL; Start 11/14/18 at 1 8:30; Stop 11/14/18 at 20:14; Status DC Cefepime HCl (Maxipime) 2 gm Q12HR IVP Last administered on 11/20/18at 20:52; Start 11/14/18 at 18:27; Stop 11/21/18 at 07:30; Status DC Azithromycin 250 ml @ 250 mls/hr 1X ONCE IV Last administered on 11/14/18at 22 :56; Start 11/14/18 at 18:30; Stop 11/14/18 at 19:29; Status DC Vancomycin HCl (Vanco Per Pharmacy) 1 each PRN DAILY PRN MC SEE COMMENTS Last administered on 11/15/18at 10:17; Start 11/14/18 at 18:30; Stop 11/16/18 at 08:07; Status DC Propofol 50 ml @ 0 mls/hr 1X ONCE IV ; Start 11/14/18 at 18:30; Stop 11/14/18 at 18:31; Status DC Etomidate (Amidate) 20 mg 1X ONCE IV Last administered on 11/14/18at 18:11; Start 11/14/18 at 18:30; Stop 11/14/18 at 18:31; Status DC Rocuronium [place] (Zemuron) 50 mg 1X ONCE IV Last administered on 11/14/18at 18:11; Start 11/14/18 at 18:30; Stop 11/14/18 at 18:31; Status DC Sodium Chloride 1,000 ml @ 1,000 mls/hr 1X ONCE IV Last administered on 11/14/18at 18:11; Start 11/14/18 at 18:30; Stop 11/14/18 at 19:29; Status DC Vancomycin HCl 1.75 gm/Sodium Chloride 500 ml @ 250 mls/hr 1X ONCE IV Last administered on 11/14/18at 21:00; Start 11/14/18 at 19:00; Stop 11/14/18 at 20:59; Status DC Midazolam HCl 100 ml @ 5 mls/hr CONT PRN IV SEE I/O RECORD Last administered on 11/15/18at 06:05; Start 11/14/18 at 20:30; Stop 11/16/18 at 12:47; Status DC Sodium Chloride 1,000 ml @ 1,000 mls/hr 1X ONCE IV Last administered on 11/14/18at 21:07; Start 11/14/18 at 21:00; Stop 11/14/18 at 21:59; Status DC Methylprednisolone Sodium Succinate (SOLU-Medrol 125MG VIAL) 125 mg Q12HR IV Last administered on 11/19/18at 08:54; Start 11/15/18 at 09:00; Stop 11/19/18 at 10:15; Status DC Albuterol/ Ipratropium (Duoneb) 3 ml Q4HRS NEB ; Start 11/15/18 at 00:00; Status Cancel Sodium Chloride 1,000 ml @ 75 mls/hr [id number] IV Last administered on 11/24/18at 08:48; Start 11/14/18 at 22:00 Sodium Chloride 1,000 ml @ 999 mls/hr 1X ONCE IV ; Start 11/14/18 at 20:45; Stop 11/14/18 at 21:45; Status UNV Albuterol/ Ipratropium (Duoneb) 3 ml RTQID NEB ; Start 11/15/18 at 08:00; Stop 11/15/18 at 08:00; Status DC Albuterol Sulfate (Ventolin Neb Soln) 2.5 mg PRN Q4HRS PRN NEB SHORTNESS OF BREATH Last administered on 11/15/18at 20:23; Start 11/14/18 at 20:45 Norepinephrine Bitartrate 250 ml @ 1.875 mls/ hr CONT PRN IV SEE I/O RECORD Last administered on 11/15/18at 02:33; Start 11/14/18 at 22:30; Stop 11/16/18 at 12:47; Status DC Sodium Chloride 1,000 ml @ 999 mls/hr 1X ONCE IV Last administered on 11/14/18at 22:55; Start 11/14/18 at 23:00; Stop 11/15/18 at 00:00; Status DC Albuterol/ Ipratropium (Duoneb) 3 ml Q4HRS NEB Last administered on 11/24/18at 15:16; Start 11/15/18 at 00:00 Vancomycin HCl 1 gm/Sodium Chloride 250 ml @ 250 mls/hr Q12H IV Last administered on 11/15/18at 09:53; Start 11/15/18 at 09:00; Stop 11/15/18 at 12:00; Status DC Vancomycin HCl (Vancomycin Trough Level) 1 each 1X ONCE MC ; Start 11/16/18 at 20:30; Stop 11/16/18 at 20:31; Status Cancel Fentanyl Citrate 30 ml @ 0 mls/hr CONT PRN IV SEE PROTOCOL Last administered on 11/16/18at 04:50; Start 11/15/18 at 07:45; Stop 11/16/18 at 12:47; Status DC Sodium Chloride 1,000 ml @ 1,000 mls/hr 1X ONCE IV Last administered on 11/15/18at 09:54; Start 11/15/18 at 09:15; Stop 11/15/18 at 10:14; Status DC Famotidine (Pepcid Vial) 20 mg BID IVP Last administered on 11/24/18at 08:48; Start 11/15/18 at 10:00 Enoxaparin Sodium (Lovenox Per Pharmacy Prophylaxis Dosing) 1 each DAILY MC Last administered on 11/17/18at 09:00; Start 11/16/18 at 09:00; Stop 11/21/18 at 13:17; Status DC Enoxaparin Sodium (Lovenox 40mg Syringe) 40 mg Q24H SQ Last administered on 11/24/18at 08:48; Start 11/15/18 at 10:00 Vancomycin HCl 1 gm/Sodium Chloride 250 ml @ 250 mls/hr Q18H IV Last administered on 11/16/18at 03:01; Start 11/16/18 at 03:00; Stop 11/16/18 at 08:06; Status DC Lorazepam (Ativan Inj) 2 mg PRN Q4HRS PRN IV ANXIETY / AGITATION Last administered on 11/16/18at 15:28; Start 11/15/18 at 12:45; Stop 11/21/18 at 13:17; Status DC Propofol 100 ml @ 0 mls/hr CONT PRN IV SEE PROTOCOL Last administered on 11/16/18at 04:48; Start 11/15/18 at 16:15; Stop 11/16/18 at 12:47; Status DC Flumazenil (Romazicon) 0.1 mg 1X ONCE IV Last administered on 11/16/18at 16:46; Start 11/16/18 at 16:45; Stop 11/16/18 at 16:46; Status DC Flumazenil (Romazicon) 0.1 mg 1X ONCE IV Last administered on 11/16/18at 17:49; Start 11/16/18 at 17:45; Stop 11/16/18 at 17:49; Status DC Propofol 100 ml @ As Directed STK-MED ONCE IV ; Start 11/16/18 at 20:46; Stop 11/16/18 at 20:47; Status DC Propofol 100 ml @ 1.145 mls/ hr CONT PRN IV SEE I/O RECORD Last administered o n 11/20/18at 08:17; Start 11/17/18 at 02:30; Stop 11/21/18 at 13:17; Status DC Fentanyl Citrate (Fentanyl 2ml Vial) 50 mcg PRN Q2HR PRN IV PAIN Last administered on 11/17/18at 02:41; Start 11/17/18 at 02:30; Stop 11/21/18 at 13:17; Status DC Fentanyl Citrate 30 ml @ 0 mls/hr CONT PRN IV SEE PROTOCOL Last administered on 11/20/18at 06:39; Start 11/17/18 at 07:15; Stop 11/21/18 at 13:17; Status DC Dextrose (Dextrose 50%-Water Syringe) 12.5 gm PRN Q15MIN PRN IV SEE COMMENTS; Start 11/17/18 at 11:30; Stop 11/21/18 at 13:17; Status DC Propofol (Diprivan) 200 mg STK-MED ONCE IV ; Start 11/16/18 at 12:00; Stop 11/17/18 at 15:00; Status DC Rocuronium [place] (Zemuron) 50 mg STK-MED ONCE .ROUTE ; Start 11/16/18 at 12:00; Stop 11/17/18 at 15:00; Status DC Methylprednisolone Sodium Succinate (SOLU-Medrol 40MG VIAL) 40 mg Q12HR IV Last administered on 11/24/18at 08:48; Start 11/19/18 at 21:00; Stop 11/24/18 at 11:27; Status DC Piperacillin Sod/ Tazobactam Sod 3.375 gm/Sodium Chloride 50 ml @ 100 mls/hr Q6HRS IV Last administered on 11/23/18at 06:09; Start 11/21/18 at 08:00; Stop 11/23/18 at 07:23; Status DC Ondansetron HCl (Zofran) 4 mg PRN Q6HRS PRN IV NAUSEA/VOMITING Last administered on 11/21/18at 07:57; Start 11/21/18 at 08:00 Enoxaparin Sodium (Lovenox 40mg Syringe) 40 mg Q24H SQ ; Start 11/22/18 at 09:00; Status UNV Multivitamins (Thera M Plus) 1 tab DAILY PO ; Start 11/22/18 at 11:30 Prednisone (Prednisone) 30 mg DAILY PO ; Start 11/25/18 at 09:00 Aspirin (Children'S Aspirin) 162 mg DAILYWBKFT PO ; Start 11/24/18 at 18:00 Active Scripts Active Guaifenesin Dm Syrup (Guaifenesin/Dextromethorphan) 5 Ml Syrup 10 Ml PO PRN Q6HRS PRN MDD 1 7 Days Reported Prednisone (Prednisone) 10 Mg Tablet 10 Mg PO DAILY Fluoxetine Hcl 20 Mg Capsule 20 Mg PO DAILY Incruse Ellipta (Umeclidinium [place]) 62.5 Mcg Blst.w.dev 62.5 Mcg IH DAILY Breo Ellipta 100-25 Mcg Inh (Fluticasone/Vilanterol) 1 Each Aer.pow.ba 1 Puff IH DAILY Tudorza Pressair (Aclidinium [place]) 400 Mcg Aer.pow.ba 400 Mcg IH DAILY Vitals/I & O Vital Sign - Last 24 Hours 11/23/18 11/23/18 11/23/18 11/23/18 17:00 18:00 19:00 20:00 Temp 98.6 98.6 Pulse 74 68 77 B/P (MAP) 140/70 (93) 149/76 (100) 143/71 (95) Pulse Ox 96 98 98 O2 Delivery Nasal Cannula Nasal Cannula Nasal Cannula O2 Flow Rate 3.0 3.0 3.0 4.0 11/23/18 11/23/18 11/23/18 11/23/18 20:00 20:06 20:24 21:00 Temp 98.3 98.3 Pulse 74 74 B/P (MAP) 157/73 (101) 160/80 (106) Pulse Ox 96 96 98 O2 Delivery Nasal Cannula Nasal Cannula Nasal Cannula Nasal Cannula O2 Flow Rate 3.0 3.0 2.0 3.0 11/23/18 11/23/18 11/23/18 11/23/18 22:00 23:00 23:22 23:59 Pulse 74 64 B/P (MAP) 161/88 (112) 157/86 (109) Pulse Ox 98 98 94 O2 Delivery BiPAP/CPAP BiPAP/CPAP BiPAP/CPAP O2 Flow Rate 25.0 4.0 11/23/18 11/23/18 11/24/18 11/24/18 23:59 23:59 00:53 01:00 Temp 98.5 98.5 Pulse 62 63 B/P (MAP) 167/92 (117) 169/85 (113) Pulse Ox 94 94 94 O2 Delivery BiPAP/CPAP Nasal Cannula BiPAP/CPAP BiPAP/CPAP O2 Flow Rate 3.0 11/24/18 11/24/18 11/24/18 11/24/18 02:00 03:00 03:43 04:00 Pulse 62 63 Resp 21 25 B/P (MAP) 160/90 (113) 141/81 (101) Pulse Ox 94 96 94 O2 Delivery BiPAP/CPAP BiPAP/CPAP BiPAP/CPAP Nasal Cannula O2 Flow Rate 3.0 11/24/18 11/24/18 11/24/18 11/24/18 04:00 04:00 05:00 06:05 Temp 98.4 98.4 Pulse 62 63 63 Resp 25 25 25 B/P (MAP) 139/74 (95) 139/74 (95) 163/74 (103) Pulse Ox 97 96 97 O2 Delivery BiPAP/CPAP BiPAP/CPAP BiPAP/CPAP O2 Flow Rate 4.0 11/24/18 11/24/18 11/24/18 11/24/18 08:00 08:00 08:00 08:15 Pulse 65 Resp 25 B/P (MAP) 143/74 (97) Pulse Ox 97 98 O2 Delivery Nasal Cannula Nasal Cannula Nasal Cannula O2 Flow Rate 4.0 3.0 4.0 2.0 11/24/18 11/24/18 11/24/18 11/24/18 09:19 11:30 11:50 12:00 Temp 98.0 98.0 Pulse 70 Resp 18 B/P (MAP) 154/83 (106) Pulse Ox 96 O2 Delivery Nasal Cannula Nasal Cannula Nasal Cannula O2 Flow Rate 3.0 4.0 2.0 2.0 11/24/18 11/24/18 11/24/18 11/24/18 12:00 13:01 14:00 14:50 Pulse Ox 94 94 94 O2 Delivery Nasal Cannula BiPAP/CPAP BiPAP/CPAP BiPAP/CPAP O2 Flow Rate 3.0 11/24/18 15:16 Pulse Ox 94 O2 Delivery BiPAP/CPAP Intake and Output 11/23/18 11/23/18 11/24/18 14:59 22:59 06:59 Intake Total 0 ml 0 ml 1058 ml Output Total 1315 ml 1000 ml 900 ml Balance -1315 ml -1000 ml 158 ml JOSE RUBY MD Nov 24, 2018 16:57
[2018-11-24] MEDS: ASPIRIN CHEWABLE 81 MG TABLET. PO SCH (17:51)
--- NOTE | 2018-11-24 18:14 | NUR ---
Patient arrived in ICU after Dr. Snider was called and reported that Patient was confused with tachypnea. ABG as follows. Ph 7.442, pCO2 52.6, pO2 72.7, HCO3 35.5, FiO2 30%. Results called to Dr. Snider. no changes to BiPap settings. Dr. Snider asked that we keep patient in ICU for monitoring. Patient is currently resting with Bipap on. Patient is able to answer questions, without increased respiratory workload.
--- NOTE | 2018-11-24 20:15 | NUR ---
BiPap removed and patient placed on 3L/NC O2 for oral care at 2004; by 2015 patient's oxygen saturation decreased from 97% to 86%. Patient placed back on BiPap at 2014 and oxygen saturation increased back to 98%--patient also received breathing treatment at this time.
[2018-11-25] VITALS (22 sets, daily range): BP systolic 113–169; BP diastolic 58–92
[2018-11-25] MEDS: IPRATRPIUM/ALBUTEROL 0.5/2.5MG 3 ML NEBU. NEB SCH ×7 (04:00→23:28)
[2018-11-25] MEDS: ASPIRIN CHEWABLE 81 MG TABLET. PO SCH (08:00)
--- NOTE | 2018-11-25 08:31 | PDOC ---
PULMONARY PROGRESS NOTES Subjective extubated 11/21. Returned to ICU yesterday due to worsening hypoxia. Doing well on Bipap although she at times takes it off. At present, on BiPap she is comfortable (RR 20) denies dyspnea or discomfort. Not taking oral meds yet. Vitals Vital Signs Date Time Temp Pulse Resp B/P (MAP) Pulse Ox O2 Delivery O2 Flow Rate FiO2 11/25/18 08:05 98 BiPAP/CPAP 11/25/18 07:00 98.5 60 35 133/65 (87) 98.5 11/25/18 06:20 4.0 General: Alert, No acute distress HEENT: Other (nc at perrl nose clear orally intubated neck no lad, no thyromegaly) Lungs: Other (decrease bs, no rales, rhonchi or wheezes) Cardiovascular: S1, S2 Abdomen: Soft, Non-tender, Other (no mass) Neuro Exam: Alert Extremities: No Edema Skin: Warm Labs Laboratory Tests Test 11/24/18 14:03 O2 Saturation 95 % (92-99) Arterial Blood pH 7.45 (7.35-7.45) Arterial Blood pCO2 at Patient Temp 53 mmHg (35-46) Arterial Blood pO2 at Patient Temp 73 mmHg (65-108) Arterial Blood HCO3 36 mmol/L (21-28) Arterial Blood Base Excess 10 mmol/L (-3-3) FiO2 30 Laboratory Tests Test 11/24/18 14:03 O2 Saturation 95 % (92-99) Arterial Blood pH 7.45 (7.35-7.45) Arterial Blood pCO2 at Patient Temp 53 mmHg (35-46) Arterial Blood pO2 at Patient Temp 73 mmHg (65-108) Arterial Blood HCO3 36 mmol/L (21-28) Arterial Blood Base Excess 10 mmol/L (-3-3) FiO2 30 Medications Active Scripts Medications Dose Route/Sig Max Daily Dose Days Date Category Guaifenesin Dm Syrup (Guaifenesin/Dextromethorphan) 5 Ml Syrup 10 Ml PO PRN Q6HRS PRN MDD 1 7 10/03/18 Rx Incruse Ellipta (Umeclidinium [place]) 62.5 Mcg Blst.w.dev 62.5 Mcg IH DAILY 07/11/17 Reported Breo Ellipta 100-25 Mcg Inh (Fluticasone/Vilanterol) 1 Each Aer.pow.ba 1 Puff IH DAILY 07/11/17 Reported Tudorza Pressair (Aclidinium [place]) 400 Mcg Aer.pow.ba 400 Mcg IH DAILY 07/11/17 Reported Comments CXR 11/24 reviewed no focal infiltrates infiltrates Impression . 1. [id number] hypercapnic respiratory failure secondary to acute exacerbation of chronic obstructive pulmonary disease.. Re-intubated 11/16, extubated 11/21 back on BiPap 11/24 2. Shock, likely a combination of hypovolemic and septic shock. off levo, resolved 3. Low-grade fever POA. Source could be in the lungs, although chest x-ray does not show definite consolidation , no further fever 4. Underlying severe chronic obstructive pulmonary disease with chronic hypercapnia. 5. Mild azotemia. 6. [id number] protein-calorie malnutrition. 7. Moderate Plan . 1. Will trial on low flow O2 today. BiPap at night. prn BIPAP for dyspnea. ABG adequate. d/w RN 2. OFF antibiotics. 3. Follow cultures. neg so far 4. steroids. will switch to IV methylprednisolone since not taking oral prednisone 5. off Levophed .keep systolic pressure above 100. 6. Continue DuoNeb. 7. Deep venous thrombosis prophylaxis. 8. Stress ulcer prophylaxis. 9. elevate hob Discussed with RN,11/23 Patient now wants to be a full code. she understands that if re-intubated, she will need tracheostomy and live in [place] on vent. TRINITY BOWMAN MD Nov 25, 2018 08:31
[2018-11-25] MEDS ORDERED: predniSONE 10 MG TABLET PO SCH (09:00)
[2018-11-25] MEDS: MULTIVITAMIN with MINERAL TABLET. PO SCH (09:00)
[2018-11-25] MEDS: FAMOTIDINE 20 MG/2 ML VIAL IVP SCH ×2 (09:28→21:44)
[2018-11-25] MEDS: ENOXAPARIN 40 MG/0.4 ML SYRINGE. SQ SCH (09:28)
[2018-11-25] MEDS: methylPREDNISolone SOD SUCC PF 40 MG/ML VIAL. IV SCH (09:33)
[2018-11-25] MEDS ORDERED: GADOTERATE 7.5 MMOL/15ML VIAL. IVP ONE (11:00)
--- NOTE | 2018-11-25 11:00 | NUR ---
assisted pt back to bed from recliner position in chair with x2 assist. on return to bed, after taking 2 steps to bed, o2 sat dropped to 58% on 1 L NC. pt assisted into the bed. pt placed on bipap 30%. pt with scared look on face, using purse lip breathing technique, kept attempting to sit up on side of bed and then finally settled into bed on her right side. In 5 minutes o2 sat in mid 80's and then in 10 minutes sat 96% on bipap of 30%. pt family now at bedside and are aware of pt having breathing issues with any activity. "no reserve".
[2018-11-25] MEDS: IV NORMAL SALINE 1000ML BAG 1,000 ML IV SCH (12:59)
--- NOTE | 2018-11-25 14:38 | PDOC ---
PROGRESS NOTES Chief Complaint Chief Complaint acute hypoxic and hypercarbic respiratory failure back on bipap today, may need to get reintubated, discussed with palliative care History of Present Illness History of Present Illness didnt do well on floor last night back in ICU, Resp rate 40 had been transferred to floor, ICU, back on bipap 11/23 extubated 11/21 prn Levophed to keep systolic pressure above 100. cont iv zosyn Steroids iv, taper neurology consult PT/OT/ST Vitals Vitals Vital Signs Date Time Temp Pulse Resp B/P (MAP) Pulse Ox O2 Delivery O2 Flow Rate FiO2 11/25/18 14:00 69 38 137/76 (96) 97 Venturi Mask 11/25/18 11:00 98.2 98.2 11/25/18 10:00 1.0 Physical Exam Physical Exam GENERAL:NAD, Very Alert coop - pleasant. Came off bipap to ME no problem HEENT: Pupils equal, edentulous and clear NECK: Supple. LUNGS: Clear anteriorly HEART: S1, S2. + murmur ABDOMEN: little distended, soft, + BS : Carvalho in place EXTREMITIES: No cyanosis, 1 edema. LUE1 -2 DERMATOLOGIC: Warm, dry. No generalized rash. NEUROLOGIC: alert/coop PIV General: Alert, Cooperative, No acute distress, Other (confused to details) Heart: Regular rate (SR no ectopies), Other (3/6 systolic murmur to AKIN border) Lungs: Other (decrease bs, no rales, rhonchi or wheezes) Abdomen: Normal bowel sounds, Soft, No tenderness Extremities: No clubbing, No cyanosis Skin: No breakdown, No significant lesion Assessment and Plan Assessmemt and Plan Problems Medical Problems: (1) Acute hypercapnic respiratory failure Status: Acute Comment Review of Relevant I have reviewed the following items heaven (where applicable) has been applied. Labs Laboratory Tests Test 11/24/18 14:03 O2 Saturation 95 % (92-99) Arterial Blood pH 7.45 (7.35-7.45) Arterial Blood pCO2 at Patient Temp 53 mmHg (35-46) Arterial Blood pO2 at Patient Temp 73 mmHg (65-108) Arterial Blood HCO3 36 mmol/L (21-28) Arterial Blood Base Excess 10 mmol/L (-3-3) FiO2 30 Microbiology 11/14/18 Blood Culture - Final, Complete NO GROWTH AFTER 5 DAYS 11/14/18 Urine Culture - Final, Complete 11/14/18 Urine Culture Result 1 (KRISTA) - Final, Complete Medications Current Medications Methylprednisolone Sodium Succinate (SOLU-Medrol 125MG VIAL) 125 mg 1X ONCE IV Last administered on 11/14/18at 17:14; Start 11/14/18 at 16:45; Stop 11/14/18 at 16:46; Status DC Albuterol/ Ipratropium (Duoneb) 3 ml 1X ONCE NEB Last administered on 11/14/18at 17:04; Start 11/14/18 at 16:45; Stop 11/14/18 at 16:46; Status DC Ondansetron HCl (Zofran) 4 mg 1X ONCE IV Last administered on 11/14/18at 17:13; Start 11/14/18 at 17:00; Stop 11/14/18 at 17:01; Status DC Propofol 0 ml @ As Directed STK-MED ONCE IV ; Start 11/14/18 at 18:09; Stop 11/14/18 at 18:10; Status DC Etomidate (Amidate) 20 mg STK-MED ONCE IV ; Start 11/14/18 at 18:17; Stop 11/14/18 at 18:18; Status DC Rocuronium [place] (Zemuron) 50 mg STK-MED ONCE .ROUTE ; Start 11/14/18 at 18:17; Stop 11/14/18 at 18:18; Status DC Propofol 100 ml @ 0 mls/hr CONT PRN IV SEE PROTOCOL Last administered on 11/14/18at 18:00; Start 11/14/18 at 18:30; Stop 11/15/18 at 07:38; Status DC Chlorhexidine Gluconate (Peridex) 15 ml BID MM ; Start 11/14/18 at 21:00; Stop at 16:12; Status DC Midazolam HCl 100 ml @ 0 mls/hr CONT PRN IV SEE PROTOCOL; Start 11/14/18 at 18:30; Stop 11/14/18 at 20:14; Status DC Cefepime HCl (Maxipime) 2 gm Q12HR IVP Last administered on 11/20/18at 20:52; Start 11/14/18 at 18:27; Stop 11/21/18 at 07:30; Status DC Azithromycin 250 ml @ 250 mls/hr 1X ONCE IV Last administered on 11/14/18at 22:56; Start 11/14/18 at 18:30; Stop 11/14/18 at 19:29; Status DC Vancomycin HCl (Vanco Per Pharmacy) 1 each PRN DAILY PRN MC SEE COMMENTS Last administered on 11/15/18at 10:17; Start 11/14/18 at 18:30; Stop 11/16/18 at 08:07; Status DC Propofol 50 ml @ 0 mls/hr 1X ONCE IV ; Start 11/14/18 at 18:30; Stop 11/14/18 at 18:31; Status DC Etomidate (Amidate) 20 mg 1X ONCE IV Last administered on 11/14/18at 18:11; Start 11/14/18 at 18:30; Stop 11/14/18 at 18:31; Status DC Rocuronium [place] (Zemuron) 50 mg 1X ONCE IV Last administered on 11/14/18 18:11; Start 11/14/18 at 18:30; Stop 11/14/18 at 18:31; Status DC Sodium Chloride 1,000 ml @ 1,000 mls/hr 1X ONCE IV Last administered on 11/14/18 18:11; Start 11/14/18 at 18:30; Stop 11/14/18 at 19:29; Status DC Vancomycin HCl 1.75 gm/Sodium Chloride 500 ml @ 250 mls/hr 1X ONCE IV Last administered on 11/14/18 21:00; Start 11/14/18 at 19:00; Stop 11/14/18 at 20:59; Status DC Midazolam HCl 100 ml @ 5 mls/hr CONT PRN IV SEE I/O RECORD Last administered on 11/15/18 06:05; Start 11/14/18 at 20:30; Stop 11/16/18 at 12:47; Status DC Sodium Chloride 1,000 ml @ 1,000 mls/hr 1X ONCE IV Last administered on 11/14/18 21:07; Start 11/14/18 at 21:00; Stop 11/14/18 at 21:59; Status DC Methylprednisolone Sodium Succinate (SOLU-Medrol 125MG VIAL) 125 mg Q12HR IV Last administered on 11/19/18at 08:54; Start 11/15/18 at 09:00; Stop 11/19/18 at 10:15; Status DC Albuterol/ Ipratropium (Duoneb) 3 ml Q4HRS NEB ; Start 11/15/18 at 00:00; Status Cancel Sodium Chloride 1,000 ml @ 75 mls/hr [id number] IV Last administered on 11/25/18at 12:59; Start 11/14/18 at 22:00 Sodium Chloride 1,000 ml @ 999 mls/hr 1X ONCE IV ; Start 11/14/18 at 20:45; S top 11/14/18 at 21:45; Status UNV Albuterol/ Ipratropium (Duoneb) 3 ml RTQID NEB ; Start 11/15/18 at 08:00; Stop 11/15/18 at 08:00; Status DC Albuterol Sulfate (Ventolin Neb Soln) 2.5 mg PRN Q4HRS PRN NEB SHORTNESS OF BREATH Last administered on 11/15/18at 20:23; Start 11/14/18 at 20:45 Norepinephrine Bitartrate 250 ml @ 1.875 mls/ hr CONT PRN IV SEE I/O RECORD Last administered on 11/15/18at 02:33; Start 11/14/18 at 22:30; Stop 11/16/18 at 12:47; Status DC Sodium Chloride 1,000 ml @ 999 mls/hr 1X ONCE IV Last administered on 11/14/18at 22:55; Start 11/14/18 at 23:00; Stop 11/15/18 at 00:00; Status DC Albuterol/ Ipratropium (Duoneb) 3 ml Q4HRS NEB Last administered on 11/25/18at 11:47; Start 11/15/18 at 00:00 Vancomycin HCl 1 gm/Sodium Chloride 250 ml @ 250 mls/hr Q12H IV Last administered on 11/15/18at 09:53; Start 11/15/18 at 09:00; Stop 11/15/18 at 12:00; Status DC Vancomycin HCl (Vancomycin Trough Level) 1 each 1X ONCE MC ; Start 11/16/18 at 20:30; Stop 11/16/18 at 20:31; Status Cancel Fentanyl Citrate 30 ml @ 0 mls/hr CONT PRN IV SEE PROTOCOL Last administered on 11/16/18 04:50; Start 11/15/18 at 07:45; Stop 11/16/18 at 12:47; Status DC Sodium Chloride 1,000 ml @ 1,000 mls/hr 1X ONCE IV Last administered on 11/15/18 09:54; Start 11/15/18 at 09:15; Stop 11/15/18 at 10:14; Status DC Famotidine (Pepcid Vial) 20 mg BID IVP Last administered on 11/25/18 09:28; Start 11/15/18 at 10:00 Enoxaparin Sodium (Lovenox Per Pharmacy Prophylaxis Dosing) 1 each DAILY MC Last administered on 11/17/18 09:00; Start 11/16/18 at 09:00; Stop 11/21/18 at 13:17; Status DC Enoxaparin Sodium (Lovenox 40mg Syringe) 40 mg Q24H SQ Last administered on 11/25/18 09:28; Start 11/15/18 at 10:00 Vancomycin HCl 1 gm/Sodium Chloride 250 ml @ 250 mls/hr Q18H IV Last admini stered on 11/16/18 03:01; Start 11/16/18 at 03:00; Stop 11/16/18 at 08:06; Status DC Lorazepam (Ativan Inj) 2 mg PRN Q4HRS PRN IV ANXIETY / AGITATION Last administered on 11/16/18 15:28; Start 11/15/18 at 12:45; Stop 11/21/18 at 13:17; Status DC Propofol 100 ml @ 0 mls/hr CONT PRN IV SEE PROTOCOL Last administered on 11/16/18 04:48; Start 11/15/18 at 16:15; Stop 11/16/18 at 12:47; Status DC Flumazenil (Romazicon) 0.1 mg 1X ONCE IV Last administered on 11/16/18 16:46; Start 11/16/18 at 16:45; Stop 11/16/18 at 16:46; Status DC Flumazenil (Romazicon) 0.1 mg 1X ONCE IV Last administered on 11/16/18 17:49; Start 11/16/18 at 17:45; Stop 11/16/18 at 17:49; Status DC Propofol 100 ml @ As Directed STK-MED ONCE IV ; Start 11/16/18 at 20:46; Stop 11/16/18 at 20:47; Status DC Propofol 100 ml @ 1.145 mls/ hr CONT PRN IV SEE I/O RECORD Last administered on 11/20/18at 08:17; Start 11/17/18 at 02:30; Stop 11/21/18 at 13:17; Status DC Fentanyl Citrate (Fentanyl 2ml Vial) 50 mcg PRN Q2HR PRN IV PAIN Last a dministered on 11/17/18at 02:41; Start 11/17/18 at 02:30; Stop 11/21/18 at 13:17; Status DC Fentanyl Citrate 30 ml @ 0 mls/hr CONT PRN IV SEE PROTOCOL Last administered on 11/20/18at 06:39; Start 11/17/18 at 07:15; Stop 11/21/18 at 13:17; Status DC Dextrose (Dextrose 50%-Water Syringe) 12.5 gm PRN Q15MIN PRN IV SEE COMMENTS; Start 11/17/18 at 11:30; Stop 11/21/18 at 13:17; Status DC Propofol (Diprivan) 200 mg STK-MED ONCE IV ; Start 11/16/18 at 12:00; Stop 11/17/18 at 15:00; Status DC Rocuronium [place] (Zemuron) 50 mg STK-MED ONCE .ROUTE ; Start 11/16/18 at 12:00; Stop 11/17/18 at 15:00; Status DC Methylprednisolone Sodium Succinate (SOLU-Medrol 40MG VIAL) 40 mg Q12HR IV Last administered on 11/24/18at 08:48; Start 11/19/18 at 21:00; Stop 11/24/18 at 1 1:27; Status DC Piperacillin Sod/ Tazobactam Sod 3.375 gm/Sodium Chloride 50 ml @ 100 mls/hr Q6HRS IV Last administered on 11/23/18at 06:09; Start 11/21/18 at 08:00; Stop 11/23/18 at 07:23; Status DC Ondansetron HCl (Zofran) 4 mg PRN Q6HRS PRN IV NAUSEA/VOMITING Last administered on 11/21/18at 07:57; Start 11/21/18 at 08:00 Enoxaparin Sodium (Lovenox 40mg Syringe) 40 mg Q24H SQ ; Start 11/22/18 at 09:00; Status UNV Multivitamins (Thera M Plus) 1 tab DAILY PO ; Start 11/22/18 at 11:30 Prednisone (Prednisone) 30 mg DAILY PO ; Start 11/25/18 at 09:00; Stop 11/25/18 at 09:26; Status DC Aspirin (Children'S Aspirin) 162 mg DAILYWBKFT PO ; Start 11/24/18 at 18:00 Methylprednisolone Sodium Succinate (SOLU-Medrol 40MG VIAL) 40 mg DAILY IV Last administered on 11/25/18at 09:33; Start 11/25/18 at 09:30 Gadoterate Meglumine (Dotarem) 16 ml 1X ONCE IVP ; Start 11/25/18 at 11:00; Stop 11/25/18 at 11:01; Status DC Active Scripts Active Guaifenesin Dm Syrup (Guaifenesin/Dextromethorphan) 5 Ml Syrup 10 Ml PO PRN Q6HRS PRN MDD 1 7 Days Reported Prednisone (Prednisone) 10 Mg Tablet 10 Mg PO DAILY Fluoxetine Hcl 20 Mg Capsule 20 Mg PO DAILY Incruse Ellipta (Umeclidinium [place]) 62.5 Mcg Blst.w.dev 62.5 Mcg IH DAILY Breo Ellipta 100-25 Mcg Inh (Fluticasone/Vilanterol) 1 Each Aer.pow.ba 1 Puff IH DAILY Tudorza Pressair (Aclidinium [place]) 400 Mcg Aer.pow.ba 400 Mcg IH DAILY Vitals/I & O Vital Sign - Last 24 Hours 11/24/18 11/24/18 11/24/18 11/24/18 14:50 15:16 16:00 16:00 Temp 98.0 98.0 Pulse 73 B/P (MAP) 126/83 (97) Pulse Ox 94 94 94 O2 Delivery BiPAP/CPAP BiPAP/CPAP BiPAP/CPAP O2 Flow Rate 2.0 11/24/18 11/24/18 11/24/18 11/24/18 16:00 17:07 18:06 19:00 Pulse 60 72 Resp 25 30 B/P (MAP) 119/74 (89) 144/76 (98) Pulse Ox 97 97 98 O2 Delivery Bi-pap BiPAP/CPAP BiPAP/CPAP BiPAP/CPAP O2 Flow Rate 3.0 4.0 11/24/18 11/24/18 11/24/18 11/24/18 20:00 20:21 21:00 21:20 Temp 98.1 98.1 Pulse 69 72 Resp 28 26 B/P (MAP) 157/73 (101) 147/72 (97) Pulse Ox 97 94 97 O2 Delivery BiPAP/CPAP BiPAP/CPAP BiPAP/CPAP Bi-pap O2 Flow Rate 4.0 11/24/18 11/24/18 11/25/18 11/25/18 22:00 23:00 00:02 00:10 Pulse 68 68 Resp 21 22 B/P (MAP) 136/62 (86) 122/65 (84) Pulse Ox 98 97 94 O2 Delivery BiPAP/CPAP BiPAP/CPAP BiPAP/CPAP O2 Flow Rate 4.0 4.0 4.0 11/25/18 11/25/18 11/25/18 11/25/18 00:11 00:15 01:10 02:00 Temp 98.9 98.9 Pulse 72 70 74 Resp 25 29 43 B/P (MAP) 144/66 (92) 116/65 (82) 128/68 (88) Pulse Ox 94 94 95 O2 Delivery Bi-pap BiPAP/CPAP BiPAP/CPAP BiPAP/CPAP O2 Flow Rate 4.0 4.0 4.0 4.0 11/25/18 11/25/18/11/25/18 02:30 03:00 04:00 04:00 Temp 98.0 98.0 Pulse 72 72 Resp 47 B/P (MAP) 131/63 (85) 132/68 (89) Pulse Ox 94 95 97 O2 Delivery BiPAP/CPAP BiPAP/CPAP Bi-pap BiPAP/CPAP O2 Flow Rate 4.0 4.0 4.0 11/25/18 11/25/18/11/25/18 04:00 04:20 05:32 06:20 Pulse 64 Resp 30 45 B/P (MAP) 122/65 (84) Pulse Ox 97 94 96 O2 Delivery BiPAP/CPAP BiPAP/CPAP O2 Flow Rate 4.0 4.0 11/25/18 11/25/18 11/25/18 11/25/18 07:00 07:33 08:00 08:05 Temp 98.5 98.5 Pulse 60 65 Resp 35 35 B/P (MAP) 133/65 (87) 124/60 (81) Pulse Ox 97 97 98 O2 Delivery BiPAP/CPAP Bi-pap Nasal Cannula BiPAP/CPAP O2 Flow Rate 3.0 11/25/18 11/25/18 11/25/18 11/25/18 09:00 10:00 11:00 11:48 Temp 98.2 98.2 Pulse 79 75 74 Resp 38 35 35 B/P (MAP) 115/59 (77) 113/58 (76) 140/72 (94) Pulse Ox 93 94 78 97 O2 Delivery Nasal Cannula Nasal Cannula BiPAP/CPAP BiPAP/CPAP O2 Flow Rate 1.0 1.0 11/25/18 11/25/18 11/25/18 11/25/18 12:00 12:00 13:00 14:00 Pulse 72 82 69 Resp 35 35 38 B/P (MAP) 127/63 (84) 123/64 (83) 137/76 (96) Pulse Ox 96 98 97 O2 Delivery BiPAP/CPAP Venturi Mask Venturi Mask Venturi Mask Intake and Output 11/24/18 11/24/18 11/25/18 15:00 23:00 07:00 Intake Total 0 ml 0 ml 1195 ml Output Total 350 ml 1875 ml 1400 ml Balance -350 ml -1875 ml -205 ml JOSE RUBY MD Nov 25, 2018 14:38
--- NOTE | 2018-11-25 14:44 | NUR ---
family of pt, natalie, approached nurse with request to change code status back to dnr/dni as per their and patients request. dr naidu notified of request and order received. witnessed by neeru cote rn and joyce wiseman.
--- NOTE | 2018-11-25 16:29 | PDOC ---
PROGRESS NOTES Assessment Assessment Anisocoria. Hallucination, visual. Multiple lesions in brain. Delusion. Confusion. Metabolic encephalopathy. Respiratory failure. COPD, maybe end stage. UTI. CHF. Cognitive impairment. Obesity. Longstanding history of smoking. RECOMMENDATIONS/PLAN: Repeat brain MRI with contrast but patient is unstable for MRI now. Non contrast MRI performed on 01/25/19. Treat medical diseases. Discussed with her family members at bedside in ICU on 11/25/18. HISTORY OF THE PRESENT ILLNESS: This is a 63-year-old female patient with longstanding history of smoking for more than 30 years, COPD, respiratory failure with weakness and dyspnea and confusion. She was hospitalized for further evaluation and treatment on 11/14/18. Neurology was requested for consultation for her visual hallucinations as seeing a cat in room, and she also had delusion saying airplane crashed. She was transferred to floor, but back to ICU again on 11/25/18 due to respiratory failure. Past Medical History COPD Past Surgical History No major surgery recently. Family History Hypertension ALLERGY: NKDA MEDICATIONS: Refer to [facility] SOCIAL HISTORY: Denies illicit drug use. She smoked 1 pack of cigarettes a day for more than 30 years but quit recently. She drinks alcohol occasionally. REVIEW OF SYSTEMS: Constitutional: No malnutrition, weight loss, cachexia. Head: No traumatic brain or head injury. Skin: No edema, or rash. Ear: No infection. Eyes: No vision loss or color blindness. Nose: No bleeding or purulent discharges. Hearing: Hearing decrease. Neck: No injury. Breast: No history of cancer, masses,or discharges. Cardiac: No MT, arrhythmia. Pulmonary: COPD. GI: No GI ulcer, GI bleeding. Urinary/genital: UTI. Endocrinologic: No cousin face, craniofacial dysmorphism. Skeletomuscular: No muscular atrophy, deformity. Neurological: see HP. Psychiatric: Denies drug use/abuse. Otherwise, not [id number] review of systems. PHYSICAL EXAMINATION: General appearance is in subacute distress. HEENT: Normocephalic and nontraumatic. Eyes, nose, ears, and throat are unremarkable. Neck is supple. No lymphadenopathy. No crepitus. Cardiovascular: S1, S2, regular rate and rhythm. Pulmonary: Breath sounds decreased to auscultation bilaterally. Abdomen: Bowel sounds are positive. Extremities: No rash, lesions, or edema. No restriction of range of motion NEUROLOGICAL EXAMINATION: Lethargic. Not oriented to time, place may know person. Right pupil 1.5 mm, left 2-3 mm, both reaction to light stimuli but left side not as sensitive as right one. EOMI. CN: no focal findings. Muscle tone: within normal. Muscle strength: 4 DTR: 1-2 Plantar reflex: Neutral response bilaterally Gait: not examined in bed. Sensory exam: no abnormal findings. No other cerebellar signs elicited. F-T-N test not accurate on left hand Objective Objective Vital Signs Date Time Temp Pulse Resp B/P (MAP) Pulse Ox O2 Delivery O2 Flow Rate FiO2 11/25/18 15:50 97 Venturi Mask 9.0 11/25/18 15:06 72 34 140/77 (98) 11/25/18 11:00 98.2 98.2 Intake and Output 11/25/18 06:59 Intake Total 1195 ml Output Total 3550 ml Balance -2355 ml Intake Oral 0 ml IV Total 1195 ml Output Urine Total 3550 ml Vitals Signs Vitals VS - Last 72 Hours, by Label Date Time Temp Pulse Resp B/P (MAP) Pulse Ox O2 Delivery O2 Flow Rate FiO2 11/25/18 15:50 97 Venturi Mask 9.0 11/25/18 15:06 72 34 140/77 (98) 98 Venturi Mask 11/25/18 14:00 69 38 137/76 (96) 97 Venturi Mask 11/25/18 13:00 82 35 123/64 (83) 98 Venturi Mask 11/25/18 12:00 Venturi Mask 11/25/18 12:00 72 35 127/63 (84) 96 BiPAP/CPAP 11/25/18 11:48 97 BiPAP/CPAP 11/25/18 11:00 98.2 74 35 140/72 (94) 78 BiPAP/CPAP 98.2 11/25/18 10:00 75 35 113/58 (76) 94 Nasal Cannula 1.0 11/25/18 09:00 79 38 115/59 (77) 93 Nasal Cannula 1.0 11/25/18 08:05 98 BiPAP/CPAP 11/25/18 08:00 65 35 124/60 (81) 97 Nasal Cannula 3.0 11/25/18 07:33 Bi-pap 11/25/18 07:00 98.5 60 35 133/65 (87) 97 BiPAP/CPAP 98.5 11/25/18 06:20 64 45 122/65 (84) 96 4.0 11/25/18 05:32 94 BiPAP/CPAP 11/25/18 04:20 30 97 BiPAP/CPAP 11/25/18 04:00 4.0 11/25/18 04:00 98.0 72 47 132/68 (89) 97 BiPAP/CPAP 4.0 98.0 11/25/18 04:00 Bi-pap 4.0 11/25/18 03:00 72 131/63 (85) 95 BiPAP/CPAP 4.0 11/25/18 02:30 94 BiPAP/CPAP 11/25/18 02:00 74 43 128/68 (88) 95 BiPAP/CPAP 4.0 11/25/18 01:10 70 29 116/65 (82) 94 BiPAP/CPAP 4.0 11/25/18 00:15 98.9 72 25 144/66 (92) 94 BiPAP/CPAP 4.0 98.9 11/25/18 00:11 Bi-pap 4.0 11/25/18 00:10 4.0 11/25/18 00:02 94 BiPAP/CPAP 11/24/18 23:00 68 22 122/65 (84) 97 BiPAP/CPAP 4.0 11/24/18 22:00 68 21 136/62 (86) 98 BiPAP/CPAP 4.0 11/24/18 21:20 Bi-pap 4.0 11/24/18 21:00 72 26 147/72 (97) 97 BiPAP/CPAP 11/24/18 20:21 94 BiPAP/CPAP 11/24/18 20:00 98.1 69 28 157/73 (101) 97 BiPAP/CPAP 98.1 11/24/18 19:00 72 30 144/76 (98) 98 BiPAP/CPAP 11/24/18 18:06 97 BiPAP/CPAP 11/24/18 17:07 60 25 119/74 (89) 97 BiPAP/CPAP 4.0 11/24/18 16:00 Bi-pap 3.0 11/24/18 16:00 2.0 11/24/18 16:00 98.0 73 126/83 (97) 94 BiPAP/CPAP 98.0 11/24/18 15:16 94 BiPAP/CPAP 11/24/18 14:50 94 BiPAP/CPAP 11/24/18 14:00 94 BiPAP/CPAP 11/24/18 13:01 94 BiPAP/CPAP 11/24/18 12:00 Nasal Cannula 3.0 11/24/18 12:00 2.0 11/24/18 11:50 Nasal Cannula 2.0 11/24/18 11:30 98.0 70 18 154/83 (106) 96 Nasal Cannula 4.0 98.0 11/24/18 09:19 Nasal Cannula 3.0 11/24/18 08:15 98 Nasal Cannula 2.0 11/24/18 08:00 65 25 143/74 (97) 97 Nasal Cannula 4.0 11/24/18 08:00 Nasal Cannula 3.0 11/24/18 08:00 4.0 Laboratory Laboratory Microbiology 11/14/18 Blood Culture - Final, Complete NO GROWTH AFTER 5 DAYS 11/14/18 Urine Culture - Final, Complete 11/14/18 Urine Culture Result 1 (KRISTA) - Final, Complete Medication Medications Current Medications Aspirin (Children'S Aspirin) 162 mg DAILYWBKFT PO ; Start 11/24/18 at 18:00 Gadoterate Meglumine (Dotarem) 16 ml 1X ONCE IVP ; Start 11/25/18 at 11:00; Stop 11/25/18 at 11:01; Status DC Methylprednisolone Sodium Succinate (SOLU-Medrol 40MG VIAL) 40 mg DAILY IV Last administered on 11/25/18at 09:33; Start 11/25/18 at 09:30 Prednisone (Prednisone) 30 mg DAILY PO ; Start 11/25/18 at 09:00; Stop 11/25/18 at 09:26; Status DC Comment Review of Relevant I have reviewed the following items heaven (where applicable) has been applied. MARTIN FIELD MD Nov 25, 2018 16:29
[2018-11-25] MEDS: MORPHINE SULFATE 2 MG/ML VIAL. IV PRN (23:45)
[2018-11-26] VITALS (14 sets, daily range): BP systolic 109–151; BP diastolic 62–80
[2018-11-26] MEDS: IV NORMAL SALINE 1000ML BAG 1,000 ML IV SCH (01:00)
[2018-11-26] MEDS: IPRATRPIUM/ALBUTEROL 0.5/2.5MG 3 ML NEBU. NEB SCH ×4 (02:45→18:19)
[2018-11-26] MEDS: MORPHINE SULFATE 2 MG/ML VIAL. IV PRN ×5 (06:07→20:44)
[2018-11-26] MEDS: MULTIVITAMIN with MINERAL TABLET. PO SCH (07:15)
[2018-11-26] MEDS: ASPIRIN CHEWABLE 81 MG TABLET. PO SCH (07:15)
[2018-11-26] MEDS: methylPREDNISolone SOD SUCC PF 40 MG/ML VIAL. IV SCH (08:45)
[2018-11-26] MEDS: FAMOTIDINE 20 MG/2 ML VIAL IVP SCH ×2 (08:46→22:27)
[2018-11-26] MEDS: ENOXAPARIN 40 MG/0.4 ML SYRINGE. SQ SCH (08:46)
--- NOTE | 2018-11-26 09:18 | PDOC ---
PULMONARY PROGRESS NOTES Subjective extubated 11/21. Returned to ICU 11/24 due to worsening hypoxia. Family decided to make patient comfort only, which is appropriate. Overnight received morphine for discomfort. This morning on bipap. she is tachypneic but does not appear in discomfort nor is she struggling. Vitals Vital Signs Date Time Temp Pulse Resp B/P (MAP) Pulse Ox O2 Delivery O2 Flow Rate FiO2 11/26/18 08:04 Bi-pap 11/26/18 08:00 63 30 147/80 (102) 100 11/26/18 06:32 97.1 97.1 11/26/18 04:00 9.0 General: Alert, No acute distress HEENT: Other (nc at perrl nose clear orally intubated neck no lad, no thyromegaly) Lungs: Other (decrease bs, no rales, rhonchi or wheezes) Cardiovascular: S1, S2 Abdomen: Soft, Non-tender, Other (no mass) Neuro Exam: Alert Extremities: No Edema Skin: Warm Labs Laboratory Tests Test 11/24/18 14:03 O2 Saturation 95 % (92-99) Arterial Blood pH 7.45 (7.35-7.45) Arterial Blood pCO2 at Patient Temp 53 mmHg (35-46) Arterial Blood pO2 at Patient Temp 73 mmHg (65-108) Arterial Blood HCO3 36 mmol/L (21-28) Arterial Blood Base Excess 10 mmol/L (-3-3) FiO2 30 Medications Active Scripts Medications Dose Route/Sig Max Daily Dose Days Date Category Guaifenesin Dm Syrup (Guaifenesin/Dextromethorphan) 5 Ml Syrup 10 Ml PO PRN Q6HRS PRN MDD 1 7 10/03/18 Rx Incruse Ellipta (Umeclidinium [place]) 62.5 Mcg Blst.w.dev 62.5 Mcg IH DAILY 07/11/17 Reported Breo Ellipta 100-25 Mcg Inh (Fluticasone/Vilanterol) 1 Each Aer.pow.ba 1 Puff IH DAILY 07/11/17 Reported Tudorza Pressair (Aclidinium [place]) 400 Mcg Aer.pow.ba 400 Mcg IH DAILY 07/11/17 Reported Comments CXR 11/24 reviewed no focal infiltrates infiltrates Impression . 1. [id number] hypercapnic respiratory failure secondary to acute exacerbation of chronic obstructive pulmonary disease.. Re-intubated 11/16, extubated 11/21 back on BiPap 11/24. Now is comfort priority care, and I agree with that decision 2. Shock, likely a combination of hypovolemic and septic shock. off levo, resolved 3. Low-grade fever POA. Source could be in the lungs, although chest x-ray does not show definite consolidation , no further fever 4. Underlying severe chronic obstructive pulmonary disease with chronic hypercapnia. 5. Mild azotemia. 6. [id number] protein-calorie malnutrition. 7. Moderate Plan . 1. Will continue bipap, steroids, bronchodilators. Comfort meds per primary team. Will not do further lab such as ABG, CXR, etc. 2. Deep venous thrombosis prophylaxis. 3. Stress ulcer prophylaxis. 4. elevate hob TRINITY BOWMAN MD Nov 26, 2018 09:18
--- NOTE | 2018-11-26 12:41 | PDOC ---
PROGRESS NOTES Chief Complaint Chief Complaint acute hypoxic and hypercarbic respiratory failure sepsis and shock on admit COPD with bronchitis malnutritoin aortic stenosis History of Present Illness History of Present Illness still having a lot of trouble, has struggles on BIPAP, family made her DNR last night, about 5pm. still struggling, this AM, decision to make her comfort only, on ativan and morphine for air hunger already. consider inpatient hospice, cont current, DNR ICU, back on bipap 11/23 extubated 11/21 prn Levophed to keep systolic pressure above 100. cont iv zosyn Steroids iv, taper neurology consult PT/OT/ST Vitals Vitals Vital Signs Date Time Temp Pulse Resp B/P (MAP) Pulse Ox O2 Delivery O2 Flow Rate FiO2 11/26/18 11:49 96 Venturi Mask 9.0 11/26/18 11:05 50 11/26/18 11:00 77 115/62 (79) 11/26/18 09:00 97.5 97.5 Physical Exam Physical Exam GENERAL:NAD, Very Alert coop - pleasant. Came off bipap to NC no problem HEENT: Pupils equal, edentulous and clear NECK: Supple. LUNGS: Clear anteriorly HEART: S1, S2. + murmur ABDOMEN: little distended, soft, + BS : Carvahlo in place EXTREMITIES: No cyanosis, 1 edema. LUE1 -2 DERMATOLOGIC: Warm, dry. No generalized rash. NEUROLOGIC: alert/coop PIV General: Alert, Cooperative, No acute distress, Other (confused to details) Heart: Regular rate (SR no ectopies), Other (3/6 systolic murmur to AKIN border) Lungs: Other (decrease bs, no rales, rhonchi or wheezes) Abdomen: Normal bowel sounds, Soft, No tenderness Extremities: No clubbing, No cyanosis Skin: No breakdown, No significant lesion Assessment and Plan Assessmemt and Plan Problems Medical Problems: (1) Acute hypercapnic respiratory failure Status: Acute Comment Review of Relevant I have reviewed the following items heaven (where applicable) has been applied. Labs Laboratory Tests Test 11/24/18 14:03 O2 Saturation 95 % (92-99) Arterial Blood pH 7.45 (7.35-7.45) Arterial Blood pCO2 at Patient Temp 53 mmHg (35-46) Arterial Blood pO2 at Patient Temp 73 mmHg (65-108) Arterial Blood HCO3 36 mmol/L (21-28) Arterial Blood Base Excess 10 mmol/L (-3-3) FiO2 30 Microbiology 11/14/18 Blood Culture - Final, Complete NO GROWTH AFTER 5 DAYS 11/14/18 Urine Culture - Final, Complete 11/14/18 Urine Culture Result 1 (KRISTA) - Final, Complete Medications Current Medications Methylprednisolone Sodium Succinate (SOLU-Medrol 125MG VIAL) 125 mg 1X ONCE IV Last administered on 11/14/18at 17:14; Start 11/14/18 at 16:45; Stop 11/14/18 at 16:46; Status DC Albuterol/ Ipratropium (Duoneb) 3 ml 1X ONCE NEB Last administered on 11/14/18at 17:04; Start 11/14/18 at 16:45; Stop 11/14/18 at 16:46; Status DC Ondansetron HCl (Zofran) 4 mg 1X ONCE IV Last administered on 11/14/18at 17:13; Start 11/14/18 at 17:00; Stop 11/14/18 at 17:01; Status DC Propofol 0 ml @ As Directed STK-MED ONCE IV ; Start 11/14/18 at 18:09; Stop 11/14/18 at 18:10; Status DC Etomidate (Amidate) 20 mg STK-MED ONCE IV ; Start 11/14/18 at 18:17; Stop 11/14/18 at 18:18; Status DC Rocuronium [place] (Zemuron) 50 mg STK-MED ONCE .ROUTE ; Start 11/14/18 at 18:17; Stop 11/14/18 at 18:18; Status DC Propofol 100 ml @ 0 mls/hr CONT PRN IV SEE PROTOCOL Last administered on 11/14/18at 18:00; Start 11/14/18 at 18:30; Stop 11/15/18 at 07:38; Status DC Chlorhexidine Gluconate (Peridex) 15 ml BID MM ; Start 11/14/18 at 21:00; Stop 11/15/18 at 16:12; Status DC Midazolam HCl 100 ml @ 0 mls/hr CONT PRN IV SEE PROTOCOL; Start 11/14/18 at 18:30; Stop 11/14/18 at 20:14; Status DC Cefepime HCl (Maxipime) 2 gm Q12HR IVP Last administered on 11/20/18 20:52; Start 11/14/18 at 18:27; Stop 11/21/18 at 07:30; Status DC Azithromycin 250 ml @ 250 mls/hr 1X ONCE IV Last administered on 11/14/18at 22:56; Start 11/14/18 at 18:30; Stop 11/14/18 at 19:29; Status DC Vancomycin HCl (Vanco Per Pharmacy) 1 each PRN DAILY PRN MC SEE COMMENTS Last administered on 11/15/18at 10:17; Start 11/14/18 at 18:30; Stop 11/16/18 at 08:07; Status DC Propofol 50 ml @ 0 mls/hr 1X ONCE IV ; Start 11/14/18 at 18:30; Stop 11/14/18 at 18:31; Status DC Etomidate (Amidate) 20 mg 1X ONCE IV Last administered on 11/14/18 18:11; Start 11/14/18 at 18:30; Stop 11/14/18 at 18:31; Status DC Rocuronium [place] (Zemuron) 50 mg 1X ONCE IV Last administered on 11/14/18 18:11; Start 11/14/18 at 18:30; Stop 11/14/18 at 18:31; Status DC Sodium Chloride 1,000 ml @ 1,000 mls/hr 1X ONCE IV Last administered on 11/14/18 18:11; Start 11/14/18 at 18:30; Stop 11/14/18 at 19:29; Status DC Vancomycin HCl 1.75 gm/Sodium Chloride 500 ml @ 250 mls/hr 1X ONCE IV Last administered on 11/14/18at 21:00; Start 11/14/18 at 19:00; Stop 11/14/18 at 20:59; Status DC Midazolam HCl 100 ml @ 5 mls/hr CONT PRN IV SEE I/O RECORD Last administered on 11/15/18 06:05; Start 11/14/18 at 20:30; Stop 11/16/18 at 12:47; Status DC Sodium Chloride 1,000 ml @ 1,000 mls/hr 1X ONCE IV Last administered on 11/14/18 21:07; Start 11/14/18 at 21:00; Stop 11/14/18 at 21:59; Status DC Methylprednisolone Sodium Succinate (SOLU-Medrol 125MG VIAL) 125 mg Q12HR IV Last administered on 11/19/18at 08:54; Start 11/15/18 at 09:00; Stop 11/19/18 at 10:15; Status DC Albuterol/ Ipratropium (Duoneb) 3 ml Q4HRS NEB ; Start 11/15/18 at 00:00; Status Cancel Sodium Chloride 1,000 ml @ 75 mls/hr [id number] IV Last administered on 11/26/18at 01:00; Start 11/14/18 at 22:00 Sodium Chloride 1,000 ml @ 999 mls/hr 1X ONCE IV ; Start 11/14/18 at 20:45; Stop 11/14/18 at 21:45; Status UNV Albuterol/ Ipratropium (Duoneb) 3 ml RTQID NEB ; Start 11/15/18 at 08:00; Stop 11/15/18 at 08:00; Status DC Albuterol Sulfate (Ventolin Neb Soln) 2.5 mg PRN Q4HRS PRN NEB SHORTNESS OF BREATH Last administered on 11/15/18at 20:23; Start 11/14/18 at 20:45 Norepinephrine Bitartrate 250 ml @ 1.875 mls/ hr CONT PRN IV SEE I/O RECORD Last administered on 11/15/18at 02:33; Start 11/14/18 at 22:30; Stop 11/16/18 at 1 2:47; Status DC Sodium Chloride 1,000 ml @ 999 mls/hr 1X ONCE IV Last administered on 11/14/18at 22:55; Start 11/14/18 at 23:00; Stop 11/15/18 at 00:00; Status DC Albuterol/ Ipratropium (Duoneb) 3 ml Q4HRS NEB Last administered on 11/26/18at 11:47; Start 11/15/18 at 00:00 Vancomycin HCl 1 gm/Sodium Chloride 250 ml @ 250 mls/hr Q12H IV Last administered on 11/15/18at 09:53; Start 11/15/18 at 09:00; Stop 11/15/18 at 12:00; Status DC Vancomycin HCl (Vancomycin Trough Level) 1 each 1X ONCE MC ; Start 11/16/18 at 20:30; Stop 11/16/18 at 20:31; Status Cancel Fentanyl Citrate 30 ml @ 0 mls/hr CONT PRN IV SEE PROTOCOL Last administered on 11/16/18at 04:50; Start 11/15/18 at 07:45; Stop 11/16/18 at 12:47; Status DC Sodium Chloride 1,000 ml @ 1,000 mls/hr 1X ONCE IV Last administered on 11/15/18at 09:54; Start 11/15/18 at 09:15; Stop 11/15/18 at 10:14; Status DC Famotidine (Pepcid Vial) 20 mg BID IVP Last administered on 11/26/18at 08:46; Start 11/15/18 at 10:00 Enoxaparin Sodium (Lovenox Per Pharmacy Prophylaxis Dosing) 1 each DAILY MC Last administered on 11/17/18at 09:00; Start 11/16/18 at 09:00; Stop 11/21/18 at 13:17; Status DC Enoxaparin Sodium (Lovenox 40mg Syringe) 40 mg Q24H SQ Last administered on 11/26/18at 08:46; Start 11/15/18 at 10:00 Vancomycin HCl 1 gm/Sodium Chloride 250 ml @ 250 mls/hr Q18H IV Last administered on 11/16/18 03:01; Start 11/16/18 at 03:00; Stop 11/16/18 at 08:06; Status DC Lorazepam (Ativan Inj) 2 mg PRN Q4HRS PRN IV ANXIETY / AGITATION Last administered on 11/16/18at 15:28; Start 11/15/18 at 12:45; Stop 11/21/18 at 13:17; Status DC Propofol 100 ml @ 0 mls/hr CONT PRN IV SEE PROTOCOL Last administered on 11/16/18at 04:48; Start 11/15/18 at 16:15; Stop 11/16/18 at 12:47; Status DC Flumazenil (Romazicon) 0.1 mg 1X ONCE IV Last administered on 11/16/18at 16:46; Start 11/16/18 at 16:45; Stop 11/16/18 at 16:46; Status DC Flumazenil (Romazicon) 0.1 mg 1X ONCE IV Last administered on 11/16/18at 17:49; Start 11/16/18 at 17:45; Stop 11/16/18 at 17:49; Status DC Propofol 100 ml @ As Directed STK-MED ONCE IV ; Start 11/16/18 at 20:46; Stop 11/16/18 at 20:47; Status DC Propofol 100 ml @ 1.145 mls/ hr CONT PRN IV SEE I/O RECORD Last administered on 11/20/18at 08:17; Start 11/17/18 at 02:30; Stop 11/21/18 at 13:17; Status DC Fentanyl Citrate (Fentanyl 2ml Vial) 50 mcg PRN Q2HR PRN IV PAIN Last administered on 11/17/18at 02:41; Start 11/17/18 at 02:30; Stop 11/21/18 at 13:17; Status DC Fentanyl Citrate 30 ml @ 0 mls/hr CONT PRN IV SEE PROTOCOL Last administered on 11/20/18at 06:39; Start 11/17/18 at 07:15; Stop 11/21/18 at 13:17; Status DC Dextrose (Dextrose 50%-Water Syringe) 12.5 gm PRN Q15MIN PRN IV SEE COMMENTS; Start 11/17/18 at 11:30; Stop 11/21/18 at 13:17; Status DC Propofol (Diprivan) 200 mg STK-MED ONCE IV ; Start 11/16/18 at 12:00; Stop 11/17/18 at 15:00; Status DC Rocuronium [place] (Zemuron) 50 mg STK-MED ONCE .ROUTE ; Start 11/16/18 at 12:0 0; Stop 11/17/18 at 15:00; Status DC Methylprednisolone Sodium Succinate (SOLU-Medrol 40MG VIAL) 40 mg Q12HR IV Last administered on 11/24/18at 08:48; Start 11/19/18 at 21:00; Stop 11/24/18 at 11:27; Status DC Piperacillin Sod/ Tazobactam Sod 3.375 gm/Sodium Chloride 50 ml @ 100 mls/hr Q6HRS IV Last administered on 11/23/18at 06:09; Start 11/21/18 at 08:00; Stop 11/23/18 at 07:23; Status DC Ondansetron HCl (Zofran) 4 mg PRN Q6HRS PRN IV NAUSEA/VOMITING Last administered on 11/21/18at 07:57; Start 11/21/18 at 08:00 Enoxaparin Sodium (Lovenox 40mg Syringe) 40 mg Q24H SQ ; Start 11/22/18 at 09:00; Status UNV Multivitamins (Thera M Plus) 1 tab DAILY PO ; Start 11/22/18 at 11:30 Prednisone (Prednisone) 30 mg DAILY PO ; Start 11/25/18 at 09:00; Stop 11/25/18 at 09:26; Status DC Aspirin (Children'S Aspirin) 162 mg DAILYWBKFT PO ; Start 11/24/18 at 18:00 Methylprednisolone Sodium Succinate (SOLU-Medrol 40MG VIAL) 40 mg DAILY IV Last administered on 11/26/18at 08:45; Start 11/25/18 at 09:30 Gadoterate Meglumine (Dotarem) 16 ml 1X ONCE IVP ; Start 11/25/18 at 11:00; Stop 11/25/18 at 11:01; Status DC Morphine Sulfate (Morphine Sulfate) 2 mg PRN Q1HR PRN IV PAIN Last administered on 11/26/18at 11:05; Start 11/25/18 at 19:45 Lorazepam (Ativan Inj) 2 mg PRN Q2HR PRN IV ANXIETY / AGITATION Last administered on 11/26/18at 00:39; Start 11/25/18 at 19:45 Active Scripts Active Guaifenesin Dm Syrup (Guaifenesin/Dextromethorphan) 5 Ml Syrup 10 Ml PO PRN Q6HRS PRN MDD 1 7 Days Reported Prednisone (Prednisone) 10 Mg Tablet 10 Mg PO DAILY Fluoxetine Hcl 20 Mg Capsule 20 Mg PO DAILY Incruse Ellipta (Umeclidinium [place]) 62.5 Mcg Blst.w.dev 62.5 Mcg IH DAILY Breo Ellipta 100-25 Mcg Inh (Fluticasone/Vilanterol) 1 Each Aer.pow.ba 1 Puff IH DAILY Tudorza Pressair (Aclidinium [place]) 400 Mcg Aer.pow.ba 400 Mcg IH DAILY Vitals/I & O Vital Sign - Last 24 Hours 11/25/18 11/25/18 11/25/18 11/25/18 13:00 14:00 15:06 15:50 Pulse 82 69 72 Resp 35 38 34 B/P (MAP) 123/64 (83) 137/76 (96) 140/77 (98) Pulse Ox 98 97 98 97 O2 Delivery Venturi Mask Venturi Mask Venturi Mask Venturi Mask O2 Flow Rate 9.0 11/25/18 11/25/18 11/25/18 11/25/18 16:00 16:00 17:00 18:00 Temp 98.1 98.1 Pulse 68 70 68 Resp 26 26 26 B/P (MAP) 169/76 (107) 156/76 (102) 149/87 (107) Pulse Ox 98 97 99 O2 Delivery Venturi Mask Venturi Mask Venturi Mask Venturi Mask 11/25/18 11/25/18 11/25/18 11/25/18 20:00 20:00 20:00 20:11 Temp 98.1 98.1 Pulse 66 Resp 28 B/P (MAP) 135/73 (93) Pulse Ox 95 99 O2 Delivery Venturi Mask Venturi Mask Venturi Mask O2 Flow Rate 9.0 9.0 9.0 11/25/18 11/25/18 11/25/18 11/25/18 21:00 21:57 23:08 23:28 Pulse 72 70 71 Resp 24 26 24 B/P (MAP) 134/64 (87) 152/70 (97) 151/92 (111) Pulse Ox 98 98 98 98 O2 Delivery Venturi Mask Venturi Mask Venturi Mask BiPAP/CPAP 11/25/18 11/26/18 11/26/18 11/26/18 23:45 00:01 00:01 00:01 Pulse 59 Resp 39 24 B/P (MAP) 132/65 (87) Pulse Ox 98 97 O2 Delivery BiPAP/CPAP Venturi Mask BiPAP/CPAP O2 Flow Rate 9.0 9.0 11/26/18 11/26/18 11/26/18 11/26/18 01:00 02:00 02:45 03:00 Temp 98.1 98.1 Pulse 59 60 56 Resp 28 40 32 B/P (MAP) 151/72 (98) 109/63 (78) 136/73 (94) Pulse Ox 97 97 97 98 O2 Delivery BiPAP/CPAP BiPAP/CPAP BiPAP/CPAP BiPAP/CPAP 11/26/18 11/26/18 11/26/18 11/26/18 04:00 04:00 04:00 05:13 Temp 97.1 97.1 Pulse 60 61 Resp 32 44 B/P (MAP) 117/64 (81) 138/65 (89) Pulse Ox 98 98 O2 Delivery Venturi Mask BiPAP/CPAP BiPAP/CPAP O2 Flow Rate 9.0 9.0 11/26/18 11/26/18 11/26/18 11/26/18 05:40 06:07 06:32 06:40 Temp 97.1 97.1 Pulse 65 Resp 45 20 40 B/P (MAP) 126/69 (88) Pulse Ox 97 95 99 99 O2 Delivery BiPAP/CPAP BiPAP/CPAP BiPAP/CPAP 11/26/18 11/26/18 11/26/18 11/26/18 07:00 07:50 08:00 08:04 Pulse 74 63 Resp 41 30 B/P (MAP) 112/74 (87) 147/80 (102) Pulse Ox 97 95 100 O2 Delivery BiPAP/CPAP BiPAP/CPAP BiPAP/CPAP Bi-pap 11/26/18 11/26/18 11/26/18 11/26/18 09:00 10:00 11:00 11:05 Temp 97.5 97.5 Pulse 61 74 77 Resp 30 40 49 50 B/P (MAP) 128/62 (84) 120/62 (81) 115/62 (79) Pulse Ox 99 94 97 97 O2 Delivery BiPAP/CPAP Venturi Mask Venturi Mask Venturi Mask O2 Flow Rate 9.0 11/26/18 11:49 Pulse Ox 96 O2 Delivery Venturi Mask O2 Flow Rate 9.0 Intake and Output 11/25/18 11/25/18 11/26/18 15:00 23:00 07:00 Intake Total 859 ml 0 ml Output Total 1075 ml 1050 ml 725 ml Balance -1075 ml -191 ml -725 ml JOSE RUBY MD Nov 26, 2018 12:41
--- NOTE | 2018-11-26 13:45 | NUR ---
pt daughters, shefali and raimundo, at bedside. discussed keeping mom comfortable with morphine for air hunger and ativan for anxiety. daughters agree with plan of care. Dr Tijerina ordered medical floor and to explore option of hospice care. consult sent to social worker school. Pt able to shake head yes and no when asked questions. Pt shook head "no" when asked if she was having pain.
[2018-11-26] MEDS: ALBUTEROL SULFATE 2.5 MG/3 ML NEBU. NEB PRN ×2 (15:23→20:50)
--- NOTE | 2018-11-26 17:48 | PDOC ---
PROGRESS NOTES Assessment Assessment Anisocoria. Hallucination, visual. 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 Delusion. Confusion. Metabolic encephalopathy. Respiratory failure. COPD, maybe end stage. UTI. CHF. Cognitive impairment. Obesity. Longstanding history of smoking. RECOMMENDATIONS/PLAN: Repeat brain MRI with contrast but patient is unstable for MRI. No proceeded due to change goal of care per family. Family decided for palliative care. HISTORY OF THE PRESENT ILLNESS: This is a 63-year-old female patient with longstanding history of smoking for more than 30 years, COPD, respiratory failure with weakness and dyspnea and confusion. She was hospitalized for further evaluation and treatment on 11/14/18. Neurology was requested for consultation for her visual hallucinations as seeing a cat in room, and she also had delusion saying airplane crashed. She was transferred to floor, but back to ICU again on 11/25/18 due to respiratory failure. 11/26/18: Backed to floor after family's decision of comfort care. Past Medical History COPD Past Surgical History No major surgery recently. Family History Hypertension ALLERGY: NKDA MEDICATIONS: Refer to [facility] SOCIAL HISTORY: Denies illicit drug use. She smoked 1 pack of cigarettes a day for more than 30 years but quit recently. She drinks alcohol occasionally. REVIEW OF SYSTEMS: Constitutional: No malnutrition, weight loss, cachexia. Head: No traumatic brain or head injury. Skin: No edema, or rash. Ear: No infection. Eyes: No vision loss or color blindness. Nose: No bleeding or purulent discharges. Hearing: Hearing decrease. Neck: No injury. Breast: No history of cancer, masses,or discharges. Cardiac: No PA, arrhythmia. Pulmonary: COPD. GI: No GI ulcer, GI bleeding. Urinary/genital: UTI. Endocrinologic: No cousin face, craniofacial dysmorphism. Skeletomuscular: No muscular atrophy, deformity. Neurological: see HP. Psychiatric: Denies drug use/abuse. Otherwise, not [id number] review of systems. PHYSICAL EXAMINATION: General appearance is in subacute distress. HEENT: Normocephalic and nontraumatic. Eyes, nose, ears, and throat are unremarkable. Neck is supple. No lymphadenopathy. No crepitus. Cardiovascular: S1, S2, regular rate and rhythm. Pulmonary: Breath sounds decreased to auscultation bilaterally. Abdomen: Bowel sounds are positive. Extremities: No rash, lesions, or edema. No restriction of range of motion NEUROLOGICAL EXAMINATION: Lethargic. Not oriented to time, place nor person. Right pupil 1.5 mm, left 2-3 mm, insensitive to light stimuli. EOMI not elicited. CN: no focal findings. Muscle tone: decreased. Muscle strength: No movements observed. DTR: 1 Plantar reflex: No response bilaterally Gait: not able to walk. Sensory exam: Minimal response noted.. Not able to access cerebellar signs. F-T-N test not performed due to lethargy. Objective Objective Vital Signs Date Time Temp Pulse Resp B/P (MAP) Pulse Ox O2 Delivery O2 Flow Rate FiO2 11/26/18 15:23 92 Nasal Cannula 2.0 11/26/18 11:35 35 11/26/18 11:00 77 115/62 (79) 11/26/18 09:00 97.5 97.5 Intake and Output 11/26/18 07:00 Intake Total 859 ml Output Total 2850 ml Balance -1991 ml Intake Oral 0 ml IV Total 859 ml Tube Feeding 0 ml Output Urine Total 2850 ml Vitals Signs Vitals VS - Last 72 Hours, by Label Date Time Temp Pulse Resp B/P (MAP) Pulse Ox O2 Delivery O2 Flow Rate FiO2 11/26/18 15:23 92 Nasal Cannula 2.0 11/26/18 11:49 96 Venturi Mask 9.0 11/26/18 11:35 35 96 Venturi Mask 9.0 11/26/18 11:05 50 97 Venturi Mask 9.0 11/26/18 11:00 77 49 115/62 (79) 97 Venturi Mask 11/26/18 10:00 74 40 120/62 (81) 94 Venturi Mask 11/26/18 09:00 97.5 61 30 128/62 (84) 99 BiPAP/CPAP 97.5 11/26/18 08:04 Bi-pap 11/26/18 08:00 63 30 147/80 (102) 100 BiPAP/CPAP 11/26/18 07:50 95 BiPAP/CPAP 11/26/18 07:00 74 41 112/74 (87) 97 BiPAP/CPAP 11/26/18 06:32 97.1 65 20 126/69 (88) 99 BiPAP/CPAP 97.1 11/26/18 06:07 45 95 11/26/18 05:40 97 BiPAP/CPAP 11/26/18 05:13 97.1 61 44 138/65 (89) 98 BiPAP/CPAP 97.1 11/26/18 04:00 9.0 11/26/18 04:00 60 32 117/64 (81) 98 BiPAP/CPAP 11/26/18 04:00 Venturi Mask 9.0 11/26/18 03:00 98.1 56 32 136/73 (94) 98 BiPAP/CPAP 98.1 11/26/18 02:45 97 BiPAP/CPAP 11/26/18 02:00 60 40 109/63 (78) 97 BiPAP/CPAP 11/26/18 01:00 59 28 151/72 (98) 97 BiPAP/CPAP 11/26/18 00:01 9.0 11/26/18 00:01 59 24 132/65 (87) 97 BiPAP/CPAP 11/26/18 00:01 Venturi Mask 9.0 11/25/18 23:45 39 98 BiPAP/CPAP 11/25/18 23:28 98 BiPAP/CPAP 11/25/18 23:08 71 24 151/92 (111) 98 Venturi Mask 11/25/18 21:57 70 26 152/70 (97) 98 Venturi Mask 11/25/18 21:00 72 24 134/64 (87) 98 Venturi Mask 11/25/18 20:11 99 Venturi Mask 9.0 11/25/18 20:00 Venturi Mask 9.0 11/25/18 20:00 9.0 11/25/18 20:00 98.1 66 28 135/73 (93) 95 Venturi Mask 98.1 11/25/18 18:00 68 26 149/87 (107) 99 Venturi Mask 11/25/18 17:00 98.1 70 26 156/76 (102) 97 Venturi Mask 98.1 11/25/18 16:00 68 26 169/76 (107) 98 Venturi Mask 11/25/18 16:00 Venturi Mask 11/25/18 15:50 97 Venturi Mask 9.0 11/25/18 15:06 72 34 140/77 (98) 98 Venturi Mask 11/25/18 14:00 69 38 137/76 (96) 97 Venturi Mask 11/25/18 13:00 82 35 123/64 (83) 98 Venturi Mask 11/25/18 12:00 Venturi Mask 11/25/18 12:00 72 35 127/63 (84) 96 BiPAP/CPAP 11/25/18 11:48 97 BiPAP/CPAP 11/25/18 11:00 98.2 74 35 140/72 (94) 78 BiPAP/CPAP 98.2 11/25/18 10:00 75 35 113/58 (76) 94 Nasal Cannula 1.0 11/25/18 09:00 79 38 115/59 (77) 93 Nasal Cannula 1.0 11/25/18 08:05 98 BiPAP/CPAP 11/25/18 08:00 65 35 124/60 (81) 97 Nasal Cannula 3.0 11/25/18 07:33 Bi-pap 11/25/18 07:00 98.5 60 35 133/65 (87) 97 BiPAP/CPAP 98.5 Laboratory Laboratory Microbiology 11/14/18 Blood Culture - Final, Complete NO GROWTH AFTER 5 DAYS 11/14/18 Urine Culture - Final, Complete 11/14/18 Urine Culture Result 1 (KRISTA) - Final, Complete Medication Medications Current Medications Lorazepam (Ativan Inj) 2 mg PRN Q2HR PRN IV ANXIETY / AGITATION Last administered on 11/26/18at 14:27; Start 11/25/18 at 19:45 Morphine Sulfate (Morphine Sulfate) 2 mg PRN Q1HR PRN IV PAIN Last administered on 11/26/18at 16:36; Start 11/25/18 at 19:45 Comment Review of Relevant I have reviewed the following items heaven (where applicable) has been applied. MARTIN FIELD MD Nov 26, 2018 17:48
--- NOTE | 2018-11-26 21:59 | PDOC ---
Provider Note Provider Note CALLED BY KERRI carrasco, family had some issues... I personally spoke with many family members luna. Some frustrations since transferred out of ICU, Pt was DNR, was SOA, belly breathing NOw placed on BIPAP, morphine given and looks much more comfortable. NPO, COMMERCIAL INSTRUCTOR SUPERVISOR to eval tmr Concerned about IVF stopped by pulmo, no nutrition, in a "corner room" tele stopped etc- I provided educn and counselling tonight Theyd prefer not to have MRI ordered as it takes too much out of her After speaking with family,and RN too. more appeased CAse familiar to me, this pt ALWAYS gets intubated when admitted -- dtr verifies PLAN: Transfer to my floor tmr, tele BIPAP NEeds close watch - decompensates easy COMMERCIAL INSTRUCTOR SUPERVISOR to eval NO PEG as per dtr ishan might be an option - has had it before ONLY HAs medicaid so CANNOT DO SNU - dc options are home or LTC - will have SW look into case ALSO, Dtr relays concern of pinkish urine? Send to lab UA, she is on lovenox - I counselled even if with micro hematuria, would prefer giving lovenox since bed bound, not unless bleeds profusely or hgb drops - dtr agrees Dw KERRI Garcia,.and lots of fam members Add some ativan low dose prn IKER NASSAR MD Nov 26, 2018 21:59
--- NOTE | 2018-11-26 22:58 | NUR ---
Family was frustrated that there was a miscommunication between the providers and the family about the direction of the patient's care. Family understood that they were just signing a DNR/DNI, but that all other cares would remain the same (IV fluids, medications, eating/drinking, telemetry monitoring, etc.), and they did not understand that "comfort care" meant withdrawing some of those measures and keeping the patient comfortable, in spite of them agreeing to meet with a hospice company tomorrow (11/27). After much discussion, Dr. Woods came to the floor and spoke with family this evening. We have decided to put the patient back on a transportation dispatch manager and continue medications for now and they will regroup tomorrow (family/Dr. Woods). Patient transferred to [facility] at 2250 tonight. Report given to KERRI Dc.
[2018-11-26 23:44] LABS: BILIRUBIN,URINE NEGATIVE (NEG); CLARITY,URINE CLEAR; COLOR,URINE YELLOW; NITRITE,URINE NEGATIVE (NEG); PH,URINE 6.5; PROTEIN,URINE NEGATIVE (NEG-TRACE); UROBILINOGEN,URINE 0.2 mg/dL (0.2 mg/dL)
[2018-11-26 23:49] LABS: RBC,URINE TNTC /HPF (0-2)
[2018-11-26 23:50] LABS: BACTERIA,URINE FEW /HPF (0-FEW)
[2018-11-27] MEDS: IPRATRPIUM/ALBUTEROL 0.5/2.5MG 3 ML NEBU. NEB SCH ×7 (00:05→22:59)
[2018-11-27] MEDS: AMINO AC 3%/ELECTROLYTE/GLYCER 1,000 ML IV SCH ×2 (00:20→12:30)
[2018-11-27] MEDS: MORPHINE SULFATE 2 MG/ML VIAL. IV PRN ×3 (03:38→10:41)
[2018-11-27 03:52] VITALS: BP 130/65
[2018-11-27 07:00] VITALS: BP 121/60
[2018-11-27] MEDS: FAMOTIDINE 20 MG/2 ML VIAL IVP SCH ×2 (08:29→20:22)
[2018-11-27] MEDS: methylPREDNISolone SOD SUCC PF 40 MG/ML VIAL. IV SCH (08:32)
[2018-11-27] MEDS: ENOXAPARIN 40 MG/0.4 ML SYRINGE. SQ SCH (08:36)
[2018-11-27] MEDS: MULTIVITAMIN with MINERAL TABLET. PO SCH (08:36)
--- NOTE | 2018-11-27 09:25 | NUR ---
1847 Ex -spouse at bedside wanting to give her liquids or ice chips, notified pt is NPO failed previous swallowing study, demands we get some one up here right now, we gave her ice chips & water yesterday, informed of possible silent aspiration.,when came in room pt had taken Bi-pap a loose, was in her hand, reconnected and Ativan IVP given, bed alarm activated, side rails up, call light in reach
[2018-11-27 09:30] LABS: BASO % 0 % (0-3); EOS # 0.1 x10^3/uL (0.0-0.7); EOS % 1 % (0-3); HEMATOCRIT 32.3 % (36.0-47.0); HEMOGLOBIN 10.7 g/dL (12.0-15.5); LYMPH # 1.3 x10^3/uL (1.0-4.8); LYMPH % 10 % (24-48); MEAN CORPUSCULAR HEMOGLOBIN 29 pg (25-35); MEAN CORPUSCULAR HGB CONC 33 g/dL (31-37); MEAN CORPUSCULAR VOLUME 89 fL (79-100); MONO # 1.1 x10^3/uL (0.0-1.1); MONO % 8 % (0-9); NEUT # 10.3 x10^3/uL (1.8-7.7); NEUT % 80 % (31-73); PLATELET COUNT 230 x10^3/uL (140-400); RED BLOOD COUNT 3.63 x10^6/uL (3.50-5.40); RED CELL DISTRIBUTION WIDTH 14.8 % (11.5-14.5); WHITE BLOOD COUNT 12.8 x10^3/uL (4.0-11.0)
[2018-11-27 09:52] LABS: CALCIUM 8.7 mg/dL (8.5-10.1); CREATININE 0.4 mg/dL (0.6-1.0); GFR 160.7; POTASSIUM 3.4 mmol/L (3.5-5.1)
--- NOTE | 2018-11-27 11:44 | PDOC ---
PROGRESS NOTES Chief Complaint Chief Complaint acute hypoxic and hypercarbic respiratory failure sepsis and shock on admit COPD with bronchitis malnutritoin aortic stenosis History of Present Illness History of Present Illness Transferred out of ICU 11/26/2018 and since then family has had multiple concerns/issuess about care, etc or what have you Please refer to my full note 10 PM 11/26/2018 Called by a marcus RN this AM as family having the same issues Patient is on the BiPAP, npo with procalamine running and TRUCK OPERATOR on board, Also on tele monitor as per fam request. I did tell the family about the end-stage nature of this-I thought family could be in denial They still wish to be transferred to [facility] NOT as inpatient hospice but as active medical treatment I educated family again that medications were never stopped when she was transferred out of ICU, I did cancel MRI as per their request as patient gets too tired with imaging/transfer/movement I did tell the daughter at bedside I would be happy to talk with an accepting M.D. if they know anybody from [facility] I also updated social work Tanya regarding this, case management, RN machine assembler supervisor Arnaldo and KERRI Reddy TIME CPM Awaiting call from an accepting MD DNR Hospice appropriate but family not ready - wants to "give her a fighting chance" TRUCK OPERATOR to eval again - family wants her to eat - if fails, ishan - agreeable as of last night Vitals Vitals Vital Signs Date Time Temp Pulse Resp B/P (MAP) Pulse Ox O2 Delivery O2 Flow Rate FiO2 11/27/18 10:51 86 BiPAP/CPAP 11/27/18 07:04 20 11/27/18 07:00 98.2 83 121/60 (80) 98.2 11/27/18 03:38 2.0 Physical Exam Physical Exam GENERAL:NAD, Very Alert coop - pleasant. Came off bipap to NC no problem HEENT: Pupils equal, edentulous and clear NECK: Supple. LUNGS: Clear anteriorly HEART: S1, S2. + murmur ABDOMEN: little distended, soft, + BS : Carvalho in place EXTREMITIES: No cyanosis, 1 edema. LUE1 -2 DERMATOLOGIC: Warm, dry. No generalized rash. NEUROLOGIC: alert/coop PIV General: Alert, Cooperative, No acute distress, Other (confused to details) Heart: Regular rate (SR no ectopies), Other (3/6 systolic murmur to AKIN border) Lungs: Other (decrease bs, no rales, rhonchi or wheezes) Abdomen: Normal bowel sounds, Soft, No tenderness Extremities: No clubbing, No cyanosis Skin: No breakdown, No significant lesion Labs LABS Laboratory Tests Test 11/26/18 23:10 11/27/18 08:35 Urine Collection Type Unknown Urine Color Yellow Urine Clarity Clear Urine pH 6.5 Urine Specific [place] 1.015 Urine Protein Negative mg/dL (NEG-TRACE) Urine Glucose (UA) Negative mg/dL (NEG) Urine Ketones (Stick) 40 mg/dL (NEG) Urine Blood Large (NEG) Urine Nitrite Negative (NEG) Urine Bilirubin Negative (NEG) Urine Urobilinogen Dipstick 0.2 mg/dL (0.2 mg/dL) Urine Leukocyte Esterase Trace (NEG) Urine RBC Tntc /HPF (0-2) Urine WBC 1-4 /HPF (0-4) Urine Bacteria Few /HPF (0-FEW) Urine Mucus Mod /LPF White Blood Count 12.8 x10^3/uL (4.0-11.0) Red Blood Count 3.63 x10^6/uL (3.50-5.40) Hemoglobin 10.7 g/dL (12.0-15.5) Hematocrit 32.3 % (36.0-47.0) Mean Corpuscular Volume 89 fL (79-100) Mean Corpuscular Hemoglobin 29 pg (25-35) Mean Corpuscular Hemoglobin Concent 33 g/dL (31-37) Red Cell Distribution Width 14.8 % (11.5-14.5) Platelet Count 230 x10^3/uL (140-400) Neutrophils (%) (Auto) 80 % (31-73) Lymphocytes (%) (Auto) 10 % (24-48) Monocytes (%) (Auto) 8 % (0-9) Eosinophils (%) (Auto) 1 % (0-3) Basophils (%) (Auto) 0 % (0-3) Neutrophils # (Auto) 10.3 x10^3/uL (1.8-7.7) Lymphocytes # (Auto) 1.3 x10^3/uL (1.0-4.8) Monocytes # (Auto) 1.1 x10^3/uL (0.0-1.1) Eosinophils # (Auto) 0.1 x10^3/uL (0.0-0.7) Basophils # (Auto) 0.0 x10^3/uL (0.0-0.2) Erythrocyte Sedimentation Rate 3 (0-25) Sodium Level 144 mmol/L (136-145) Potassium Level 3.4 mmol/L (3.5-5.1) Chloride Level 100 mmol/L (98-107) Carbon Dioxide Level 38 mmol/L (21-32) Anion Gap 6 (6-14) Blood Urea Nitrogen 12 mg/dL (7-20) Creatinine 0.4 mg/dL (0.6-1.0) Estimated GFR (Cockcroft-Gault) 160.7 Glucose Level 85 mg/dL (70-99) Calcium Level 8.7 mg/dL (8.5-10.1) Review of Systems Review of Systems limited, bipap Assessment and Plan Assessmemt and Plan Problems Medical Problems: (1) Acute hypercapnic respiratory failure Status: Acute Comment Review of Relevant I have reviewed the following items heaven (where applicable) has been applied. Labs Laboratory Tests Test 11/26/18 23:10 11/27/18 08:35 Urine Collection Type Unknown Urine Color Yellow Urine Clarity Clear Urine pH 6.5 Urine Specific [place] 1.015 Urine Protein Negative mg/dL (NEG-TRACE) Urine Glucose (UA) Negative mg/dL (NEG) Urine Ketones (Stick) 40 mg/dL (NEG) Urine Blood Large (NEG) Urine Nitrite Negative (NEG) Urine Bilirubin Negative (NEG) Urine Urobilinogen Dipstick 0.2 mg/dL (0.2 mg/dL) Urine Leukocyte Esterase Trace (NEG) Urine RBC Tntc /HPF (0-2) Urine WBC 1-4 /HPF (0-4) Urine Bacteria Few /HPF (0-FEW) Urine Mucus Mod /LPF White Blood Count 12.8 x10^3/uL (4.0-11.0) Red Blood Count 3.63 x10^6/uL (3.50-5.40) Hemoglobin 10.7 g/dL (12.0-15.5) Hematocrit 32.3 % (36.0-47.0) Mean Corpuscular Volume 89 fL (79-100) Mean Corpuscular Hemoglobin 29 pg (25-35) Mean Corpuscular Hemoglobin Concent 33 g/dL (31-37) Red Cell Distribution Width 14.8 % (11.5-14.5) Platelet Count 230 x10^3/uL (140-400) Neutrophils (%) (Auto) 80 % (31-73) Lymphocytes (%) (Auto) 10 % (24-48) Monocytes (%) (Auto) 8 % (0-9) Eosinophils (%) (Auto) 1 % (0-3) Basophils (%) (Auto) 0 % (0-3) Neutrophils # (Auto) 10.3 x10^3/uL (1.8-7.7) Lymphocytes # (Auto) 1.3 x10^3/uL (1.0-4.8) Monocytes # (Auto) 1.1 x10^3/uL (0.0-1.1) Eosinophils # (Auto) 0.1 x10^3/uL (0.0-0.7) Basophils # (Auto) 0.0 x10^3/uL (0.0-0.2) Erythrocyte Sedimentation Rate 3 (0-25) Sodium Level 144 mmol/L (136-145) Potassium Level 3.4 mmol/L (3.5-5.1) Chloride Level 100 mmol/L (98-107) Carbon Dioxide Level 38 mmol/L (21-32) Anion Gap 6 (6-14) Blood Urea Nitrogen 12 mg/dL (7-20) Creatinine 0.4 mg/dL (0.6-1.0) Estimated GFR (Cockcroft-Gault) 160.7 Glucose Level 85 mg/dL (70-99) Calcium Level 8.7 mg/dL (8.5-10.1) Laboratory Tests Test 11/26/18 23:10 11/27/18 08:35 Urine Collection Type Unknown Urine Color Yellow Urine Clarity Clear Urine pH 6.5 Urine Specific [place] 1.015 Urine Protein Negative mg/dL (NEG-TRACE) Urine Glucose (UA) Negative mg/dL (NEG) Urine Ketones (Stick) 40 mg/dL (NEG) Urine Blood Large (NEG) Urine Nitrite Negative (NEG) Urine Bilirubin Negative (NEG) Urine Urobilinogen Dipstick 0.2 mg/dL (0.2 mg/dL) Urine Leukocyte Esterase Trace (NEG) Urine RBC Tntc /HPF (0-2) Urine WBC 1-4 /HPF (0-4) Urine Bacteria Few /HPF (0-FEW) Urine Mucus Mod /LPF White Blood Count 12.8 x10^3/uL (4.0-11.0) Red Blood Count 3.63 x10^6/uL (3.50-5.40) Hemoglobin 10.7 g/dL (12.0-15.5) Hematocrit 32.3 % (36.0-47.0) Mean Corpuscular Volume 89 fL (79-100) Mean Corpuscular Hemoglobin 29 pg (25-35) Mean Corpuscular Hemoglobin Concent 33 g/dL (31-37) Red Cell Distribution Width 14.8 % (11.5-14.5) Platelet Count 230 x10^3/uL (140-400) Neutrophils (%) (Auto) 80 % (31-73) Lymphocytes (%) (Auto) 10 % (24-48) Monocytes (%) (Auto) 8 % (0-9) Eosinophils (%) (Auto) 1 % (0-3) Basophils (%) (Auto) 0 % (0-3) Neutrophils # (Auto) 10.3 x10^3/uL (1.8-7.7) Lymphocytes # (Auto) 1.3 x10^3/uL (1.0-4.8) Monocytes # (Auto) 1.1 x10^3/uL (0.0-1.1) Eosinophils # (Auto) 0.1 x10^3/uL (0.0-0.7) Basophils # (Auto) 0.0 x10^3/uL (0.0-0.2) Erythrocyte Sedimentation Rate 3 (0-25) Sodium Level 144 mmol/L (136-145) Potassium Level 3.4 mmol/L (3.5-5.1) Chloride Level 100 mmol/L (98-107) Carbon Dioxide Level 38 mmol/L (21-32) Anion Gap 6 (6-14) Blood Urea Nitrogen 12 mg/dL (7-20) Creatinine 0.4 mg/dL (0.6-1.0) Estimated GFR (Cockcroft-Gault) 160.7 Glucose Level 85 mg/dL (70-99) Calcium Level 8.7 mg/dL (8.5-10.1) Microbiology 11/14/18 Blood Culture - Final, Complete NO GROWTH AFTER 5 DAYS 11/14/18 Urine Culture - Final, Complete 11/14/18 Urine Culture Result 1 (KRISTA) - Final, Complete Medications Current Medications Methylprednisolone Sodium Succinate (SOLU-Medrol 125MG VIAL) 125 mg 1X ONCE IV Last administered on 11/14/18at 17:14; Start 11/14/18 at 16:45; Stop 11/14/18 at 16:46; Status DC Albuterol/ Ipratropium (Duoneb) 3 ml 1X ONCE NEB Last administered on 11/14/18at 17:04; Start 11/14/18 at 16:45; Stop 11/14/18 at 16:46; Status DC Ondansetron HCl (Zofran) 4 mg 1X ONCE IV Last administered on 11/14/18at 17:13; Start 11/14/18 at 17:00; Stop 11/14/18 at 17:01; Status DC Propofol 0 ml @ As Directed STK-MED ONCE IV ; Start 11/14/18 at 18:09; Stop 11/14/18 at 18:10; Status DC Etomidate (Amidate) 20 mg STK-MED ONCE IV ; Start 11/14/18 at 18:17; Stop 11/14/18 at 18:18; Status DC Rocuronium [place] (Zemuron) 50 mg STK-MED ONCE .ROUTE ; Start 11/14/18 at 18:17; Stop 11/14/18 at 18:18; Status DC Propofol 100 ml @ 0 mls/hr CONT PRN IV SEE PROTOCOL Last administered on 11/14/18at 18:00; Start 11/14/18 at 18:30; Stop 11/15/18 at 07:38; Status DC Chlorhexidine Gluconate (Peridex) 15 ml BID MM ; Start 11/14/18 at 21:00; Stop 11/15/18 at 16:12; Status DC Midazolam HCl 100 ml @ 0 mls/hr CONT PRN IV SEE PROTOCOL; Start 11/14/18 at 18:30; Stop 11/14/18 at 20:14; Status DC Cefepime HCl (Maxipime) 2 gm Q12HR IVP Last administered on 11/20/18at 20:52; Start 11/14/18 at 18:27; Stop 11/21/18 at 07:30; Status DC Azithromycin 250 ml @ 250 mls/hr 1X ONCE IV Last administered on 11/14/18at 22:56; Start 11/14/18 at 18:30; Stop 11/14/18 at 19:29; Status DC Vancomycin HCl (Vanco Per Pharmacy) 1 each PRN DAILY PRN MC SEE COMMENTS Last administered on 11/15/18at 10:17; Start 11/14/18 at 18:30; Stop 11/16/18 at 08:07; Status DC Propofol 50 ml @ 0 mls/hr 1X ONCE IV ; Start 11/14/18 at 18:30; Stop 11/14/18 at 18:31; Status DC Etomidate (Amidate) 20 mg 1X ONCE IV Last administered on 11/14/18 18:11; Start 11/14/18 at 18:30; Stop 11/14/18 at 18:31; Status DC Rocuronium [place] (Zemuron) 50 mg 1X ONCE IV Last administered on 11/14/18at 18:11; Start 11/14/18 at 18:30; Stop 11/14/18 at 18:31; Status DC Sodium Chloride 1,000 ml @ 1,000 mls/hr 1X ONCE IV Last administered on 11/14/18at 18:11; Start 11/14/18 at 18:30; Stop 11/14/18 at 19:29; Status DC Vancomycin HCl 1.75 gm/Sodium Chloride 500 ml @ 250 mls/hr 1X ONCE IV Last administered on 11/14/18at 21:00; Start 11/14/18 at 19:00; Stop 11/14/18 at 20:59; Status DC Midazolam HCl 100 ml @ 5 mls/hr CONT PRN IV SEE I/O RECORD Last administered on 11/15/18at 06:05; Start 11/14/18 at 20:30; Stop 11/16/18 at 12:47; Status DC Sodium Chloride 1,000 ml @ 1,000 mls/hr 1X ONCE IV Last administered on 11/14/18 21:07; Start 11/14/18 at 21:00; Stop 11/14/18 at 21:59; Status DC Methylprednisolone Sodium Succinate (SOLU-Medrol 125MG VIAL) 125 mg Q12HR IV Last administered on 11/19/18at 08:54; Start 11/15/18 at 09:00; Stop 11/19/18 at 10:15; Status DC Albuterol/ Ipratropium (Duoneb) 3 ml Q4HRS NEB ; Start 11/15/18 at 00:00; Status Cancel Sodium Chloride 1,000 ml @ 75 mls/hr [id number] IV Last administered on 11/26/18at 01:00; Start 11/14/18 at 22:00; Stop 11/26/18 at 14:25; Status DC Sodium Chloride 1,000 ml @ 999 mls/hr 1X ONCE IV ; Start 11/14/18 at 20:45; Stop 11/14/18 at 21:45; Status UNV Albuterol/ Ipratropium (Duoneb) 3 ml RTQID NEB ; Start 11/15/18 at 08:00; Stop 11/15/18 at 08:00; Status DC Albuterol Sulfate (Ventolin Neb Soln) 2.5 mg PRN Q4HRS PRN NEB SHORTNESS OF BREATH Last administered on 11/26/18at 20:50; Start 11/14/18 at 20:45 Norepinephrine Bitartrate 250 ml @ 1.875 mls/ hr CONT PRN IV SEE I/O RECORD Last administered on 11/15/18at 02:33; Start 11/14/18 at 22:30; Stop 11/16/18 at 12:47; Status DC Sodium Chloride 1,000 ml @ 999 mls/hr 1X ONCE IV Last administered on 11/14/18at 22:55; Start 11/14/18 at 23:00; Stop 11/15/18 at 00:00; Status DC Albuterol/ Ipratropium (Duoneb) 3 ml Q4HRS NEB Last administered on 11/27/18at 06:50; Start 11/15/18 at 00:00 Vancomycin HCl 1 gm/Sodium Chloride 250 ml @ 250 mls/hr Q12H IV Last administered on 11/15/18at 09:53; Start 11/15/18 at 09:00; Stop 11/15/18 at 12:00; Status DC Vancomycin HCl (Vancomycin Trough Level) 1 each 1X ONCE MC ; Start 11/16/18 at 20:30; Stop 11/16/18 at 20:31; Status Cancel Fentanyl Citrate 30 ml @ 0 mls/hr CONT PRN IV SEE PROTOCOL Last administered on 11/16/18at 04:50; Start 11/15/18 at 07:45; Stop 11/16/18 at 12:47; Status DC Sodium Chloride 1,000 ml @ 1,000 mls/hr 1X ONCE IV Last administered on 11/15/18at 09:54; Start 11/15/18 at 09:15; Stop 11/15/18 at 10:14; Status DC Famotidine (Pepcid Vial) 20 mg BID IVP Last administered on 11/27/18at 08:29; Start 11/15/18 at 10:00 Enoxaparin Sodium (Lovenox Per Pharmacy Prophylaxis Dosing) 1 each DAILY MC Last administered on 11/17/18at 09:00; Start 11/16/18 at 09:00; Stop 11/21/18 at 13:17; Status DC Enoxaparin Sodium (Lovenox 40mg Syringe) 40 mg Q24H SQ Last administered on 11/27/18at 08:36; Start 11/15/18 at 10:00 Vancomycin HCl 1 gm/Sodium Chloride 250 ml @ 250 mls/hr Q18H IV Last administered on 11/16/18at 03:01; Start 11/16/18 at 03:00; Stop 11/16/18 at 08:06; Status DC Lorazepam (Ativan Inj) 2 mg PRN Q4HRS PRN IV ANXIETY / AGITATION Last administered on 11/16/18at 15:28; Start 11/15/18 at 12:45; Stop 11/21/18 at 13:17; Status DC Propofol 100 ml @ 0 mls/hr CONT PRN IV SEE PROTOCOL Last administered on 11/16/18at 04:48; Start 11/15/18 at 16:15; Stop 11/16/18 at 12:47; Status DC Flumazenil (Romazicon) 0.1 mg 1X ONCE IV Last administered on 11/16/18at 16:46; Start 11/16/18 at 16:45; Stop 11/16/18 at 16:46; Status DC Flumazenil (Romazicon) 0.1 mg 1X ONCE IV Last administered on 11/16/18at 17:49; Start 11/16/18 at 17:45; Stop 11/16/18 at 17:49; Status DC Propofol 100 ml @ As Directed STK-MED ONCE IV ; Start 11/16/18 at 20:46; Stop 11/16/18 at 20:47; Status DC Propofol 100 ml @ 1.145 mls/ hr CONT PRN IV SEE I/O RECORD Last administered on 11/20/18at 08:17; Start 11/17/18 at 02:30; Stop 11/21/18 at 13:17; Status DC Fentanyl Citrate (Fentanyl 2ml Vial) 50 mcg PRN Q2HR PRN IV PAIN Last administered on 11/17/18at 02:41; Start 11/17/18 at 02:30; Stop 11/21/18 at 13:17; Status DC Fentanyl Citrate 30 ml @ 0 mls/hr CONT PRN IV SEE PROTOCOL Last administered on 11/20/18at 06:39; Start 11/17/18 at 07:15; Stop 11/21/18 at 13:17; Status DC Dextrose (Dextrose 50%-Water Syringe) 12.5 gm PRN Q15MIN PRN IV SEE COMMENTS; Start 11/17/18 at 11:30; Stop 11/21/18 at 13:17; Status DC Propofol (Diprivan) 200 mg STK-MED ONCE IV ; Start 11/16/18 at 12:00; Stop 11/17/18 at 15:00; Status DC Rocuronium [place] (Zemuron) 50 mg STK-MED ONCE .ROUTE ; Start 11/16/18 at 12:00; Stop 11/17/18 at 15:00; Status DC Methylprednisolone Sodium Succinate (SOLU-Medrol 40MG VIAL) 40 mg Q12HR IV Last administered on 11/24/18at 08:48; Start 11/19/18 at 21:00; Stop 11/24/18 at 11:27; Status DC Piperacillin Sod/ Tazobactam Sod 3.375 gm/Sodium Chloride 50 ml @ 100 mls/hr Q6HRS IV Last administered on 11/23/18at 06:09; Start 11/21/18 at 08:00; Stop 11/23/18 at 07:23; Status DC Ondansetron HCl (Zofran) 4 mg PRN Q6HRS PRN IV NAUSEA/VOMITING Last administered on 11/21/18at 07:57; Start 11/21/18 at 08:00 Enoxaparin Sodium (Lovenox 40mg Syringe) 40 mg Q24H SQ ; Start 11/22/18 at 09:00; Status UNV Multivitamins (Thera M Plus) 1 tab DAILY PO ; Start 11/22/18 at 11:30 Prednisone (Prednisone) 30 mg DAILY PO ; Start 11/25/18 at 09:00; Stop 11/25/18 at 09:26; Status DC Aspirin (Children'S Aspirin) 162 mg DAILYWBKFT PO ; Start 11/24/18 at 18:00; Stop 11/27/18 at 07:42; Status DC Methylprednisolone Sodium Succinate (SOLU-Medrol 40MG VIAL) 40 mg DAILY IV Last administered on 11/27/18at 08:32; Start 11/25/18 at 09:30 Gadoterate Meglumine (Dotarem) 16 ml 1X ONCE IVP ; Start 11/25/18 at 11:00; Stop 11/25/18 at 11:01; Status DC Morphine Sulfate (Morphine Sulfate) 2 mg PRN Q1HR PRN IV PAIN Last administered on 11/27/18at 10:41; Start 11/25/18 at 19:45 Lorazepam (Ativan Inj) 2 mg PRN Q2HR PRN IV SEVERE ANXIETY / AGITATION Last administered on 11/27/18at 09:17; Start 11/25/18 at 19:45 Lorazepam (Ativan Inj) 1 mg PRN Q4HRS PRN IV MODERATE ANXIETY / AGITATION; Start 11/26/18 at 21:30 Amino Acids/ Glycerin/ Electrolytes 1,000 ml @ 75 mls/hr [id number] IV Last administered on 11/27/18at 00:20; Start 11/26/18 at 22:30 Active Scripts Active Guaifenesin Dm Syrup (Guaifenesin/Dextromethorphan) 5 Ml Syrup 10 Ml PO PRN Q6HRS PRN MDD 1 7 Days Reported Prednisone (Prednisone) 10 Mg Tablet 10 Mg PO DAILY Fluoxetine Hcl 20 Mg Capsule 20 Mg PO DAILY Incruse Ellipta (Umeclidinium [place]) 62.5 Mcg Blst.w.dev 62.5 Mcg IH DAILY Breo Ellipta 100-25 Mcg Inh (Fluticasone/Vilanterol) 1 Each Aer.pow.ba 1 Puff IH DAILY Tudorza Pressair (Aclidinium [place]) 400 Mcg Aer.pow.ba 400 Mcg IH DAILY Vitals/I & O Vital Sign - Last 24 Hours 11/26/18 11/26/18 11/26/18 11/26/18 11:49 15:23 18:18 19:00 Temp 98.3 98.3 Pulse 84 Resp 36 B/P (MAP) 130/67 (88) Pulse Ox 96 92 96 O2 Delivery Venturi Mask Nasal Cannula Venturi Mask Venturi Mask O2 Flow Rate 9.0 2.0 9.0 11/26/18 11/26/18 11/26/18 11/26/18 20:44 21:01 23:06 23:45 Temp 97.5 97.5 Pulse 81 Resp 20 B/P (MAP) 137/73 (94) Pulse Ox 95 96 O2 Delivery Venturi Mask BiPAP/CPAP Bi-pap Venturi Mask O2 Flow Rate 2.0 2.0 11/27/18 11/27/18 11/27/18 11/27/18 00:05 02:13 03:20 03:38 Resp 28 Pulse Ox 92 O2 Delivery BiPAP/CPAP BiPAP/CPAP BiPAP/CPAP O2 Flow Rate 2.0 11/27/18 11/27/18 11/27/18 11/27/18 03:52 04:08 05:05 06:51 Temp 97.4 97.4 Pulse 85 Resp 32 26 B/P (MAP) 130/65 (86) Pulse Ox 92 94 88 O2 Delivery Venturi Mask BiPAP/CPAP BiPAP/CPAP BiPAP/CPAP 11/27/18 11/27/18 11/27/18 11/27/18 07:00 07:04 08:25 10:51 Temp 98.2 98.2 Pulse 83 Resp 40 20 B/P (MAP) 121/60 (80) Pulse Ox 94 97 86 O2 Delivery BiPAP/CPAP Room Air Bi-pap BiPAP/CPAP Intake and Output 11/26/18 11/26/18 11/27/18 14:59 22:59 06:59 Intake Total 640 ml 0 ml Output Total 540 ml 1450 ml Balance 100 ml 0 ml -1450 ml IKER NASSAR MD Nov 27, 2018 11:44
[2018-11-27 11:50] VITALS: BP 130/55
--- NOTE | 2018-11-27 12:20 | PDOC ---
PULMONARY PROGRESS NOTES Subjective extubated 11/21. Returned to ICU 11/24 due to worsening hypoxia. back on floor DNR again on bipap. Vitals Vital Signs Date Time Temp Pulse Resp B/P (MAP) Pulse Ox O2 Delivery O2 Flow Rate FiO2 11/27/18 11:50 98.4 83 34 130/55 (80) 97 BiPAP/CPAP 98.4 11/27/18 03:38 2.0 General: No acute distress HEENT: Other (nc at perrl nose clear orally intubated neck no lad, no thyromegaly) Lungs: Other (decrease bs, no rales, rhonchi or wheezes) Cardiovascular: S1, S2 Abdomen: Soft, Non-tender, Other (no mass) Neuro Exam: Alert Extremities: No Edema Skin: Warm Labs Laboratory Tests Test 11/26/18 23:10 11/27/18 08:35 Urine Collection Type Unknown Urine Color Yellow Urine Clarity Clear Urine pH 6.5 Urine Specific [place] 1.015 Urine Protein Negative mg/dL (NEG-TRACE) Urine Glucose (UA) Negative mg/dL (NEG) Urine Ketones (Stick) 40 mg/dL (NEG) Urine Blood Large (NEG) Urine Nitrite Negative (NEG) Urine Bilirubin Negative (NEG) Urine Urobilinogen Dipstick 0.2 mg/dL (0.2 mg/dL) Urine Leukocyte Esterase Trace (NEG) Urine RBC Tntc /HPF (0-2) Urine WBC 1-4 /HPF (0-4) Urine Bacteria Few /HPF (0-FEW) Urine Mucus Mod /LPF White Blood Count 12.8 x10^3/uL (4.0-11.0) Red Blood Count 3.63 x10^6/uL (3.50-5.40) Hemoglobin 10.7 g/dL (12.0-15.5) Hematocrit 32.3 % (36.0-47.0) Mean Corpuscular Volume 89 fL (79-100) Mean Corpuscular Hemoglobin 29 pg (25-35) Mean Corpuscular Hemoglobin Concent 33 g/dL (31-37) Red Cell Distribution Width 14.8 % (11.5-14.5) Platelet Count 230 x10^3/uL (140-400) Neutrophils (%) (Auto) 80 % (31-73) Lymphocytes (%) (Auto) 10 % (24-48) Monocytes (%) (Auto) 8 % (0-9) Eosinophils (%) (Auto) 1 % (0-3) Basophils (%) (Auto) 0 % (0-3) Neutrophils # (Auto) 10.3 x10^3/uL (1.8-7.7) Lymphocytes # (Auto) 1.3 x10^3/uL (1.0-4.8) Monocytes # (Auto) 1.1 x10^3/uL (0.0-1.1) Eosinophils # (Auto) 0.1 x10^3/uL (0.0-0.7) Basophils # (Auto) 0.0 x10^3/uL (0.0-0.2) Erythrocyte Sedimentation Rate 3 (0-25) Sodium Level 144 mmol/L (136-145) Potassium Level 3.4 mmol/L (3.5-5.1) Chloride Level 100 mmol/L (98-107) Carbon Dioxide Level 38 mmol/L (21-32) Anion Gap 6 (6-14) Blood Urea Nitrogen 12 mg/dL (7-20) Creatinine 0.4 mg/dL (0.6-1.0) Estimated GFR (Cockcroft-Gault) 160.7 Glucose Level 85 mg/dL (70-99) Calcium Level 8.7 mg/dL (8.5-10.1) Laboratory Tests Test 11/26/18 23:10 11/27/18 08:35 Urine Collection Type Unknown Urine Color Yellow Urine Clarity Clear Urine pH 6.5 Urine Specific [place] 1.015 Urine Protein Negative mg/dL (NEG-TRACE) Urine Glucose (UA) Negative mg/dL (NEG) Urine Ketones (Stick) 40 mg/dL (NEG) Urine Blood Large (NEG) Urine Nitrite Negative (NEG) Urine Bilirubin Negative (NEG) Urine Urobilinogen Dipstick 0.2 mg/dL (0.2 mg/dL) Urine Leukocyte Esterase Trace (NEG) Urine RBC Tntc /HPF (0-2) Urine WBC 1-4 /HPF (0-4) Urine Bacteria Few /HPF (0-FEW) Urine Mucus Mod /LPF White Blood Count 12.8 x10^3/uL (4.0-11.0) Red Blood Count 3.63 x10^6/uL (3.50-5.40) Hemoglobin 10.7 g/dL (12.0-15.5) Hematocrit 32.3 % (36.0-47.0) Mean Corpuscular Volume 89 fL (79-100) Mean Corpuscular Hemoglobin 29 pg (25-35) Mean Corpuscular Hemoglobin Concent 33 g/dL (31-37) Red Cell Distribution Width 14.8 % (11.5-14.5) Platelet Count 230 x10^3/uL (140-400) Neutrophils (%) (Auto) 80 % (31-73) Lymphocytes (%) (Auto) 10 % (24-48) Monocytes (%) (Auto) 8 % (0-9) Eosinophils (%) (Auto) 1 % (0-3) Basophils (%) (Auto) 0 % (0-3) Neutrophils # (Auto) 10.3 x10^3/uL (1.8-7.7) Lymphocytes # (Auto) 1.3 x10^3/uL (1.0-4.8) Monocytes # (Auto) 1.1 x10^3/uL (0.0-1.1) Eosinophils # (Auto) 0.1 x10^3/uL (0.0-0.7) Basophils # (Auto) 0.0 x10^3/uL (0.0-0.2) Erythrocyte Sedimentation Rate 3 (0-25) Sodium Level 144 mmol/L (136-145) Potassium Level 3.4 mmol/L (3.5-5.1) Chloride Level 100 mmol/L (98-107) Carbon Dioxide Level 38 mmol/L (21-32) Anion Gap 6 (6-14) Blood Urea Nitrogen 12 mg/dL (7-20) Creatinine 0.4 mg/dL (0.6-1.0) Estimated GFR (Cockcroft-Gault) 160.7 Glucose Level 85 mg/dL (70-99) Calcium Level 8.7 mg/dL (8.5-10.1) Medications Active Scripts Medications Dose Route/Sig Max Daily Dose Days Date Category Guaifenesin Dm Syrup (Guaifenesin/Dextromethorphan) 5 Ml Syrup 10 Ml PO PRN Q6HRS PRN MDD 1 7 10/03/ Rx Incruse Ellipta (Umeclidinium [place]) 62.5 Mcg Blst.w.dev 62.5 Mcg IH DAILY 07/11/17 Reported Breo Ellipta 100-25 Mcg Inh (Fluticasone/Vilanterol) 1 Each Aer.pow.ba 1 Puff IH DAILY 07/11/17 Reported Tudorza Pressair (Aclidinium [place]) 400 Mcg Aer.pow.ba 400 Mcg IH DAILY 07/11/17 Reported Comments CXR 11/24 reviewed no focal infiltrates infiltrates Impression . 1. Vsunt-jb-atsyfyg hypercapnic respiratory failure secondary to acute exacerbation of chronic obstructive pulmonary disease.. Re-intubated 11/16, extubated 11/21 back on BiPap 11/24. 2. Shock, likely a combination of hypovolemic and septic shock. off levo, resolved 3. Low-grade fever POA. Source could be in the lungs, although chest x-ray does not show definite consolidation , no further fever 4. Underlying severe chronic obstructive pulmonary disease with chronic hypercapnia. 5. Mild azotemia. 6. Vwgo-xp-vzdlgili protein-calorie malnutrition. 7. Moderate Plan . 1. Will continue bipap, steroids, bronchodilators. Comfort meds per primary team. 2. Deep venous thrombosis prophylaxis. 3. Stress ulcer prophylaxis. 4. elevate hob 5. d/w daughter Tiana again to verify DNR order. she agrees XENA MCGRAW MD Nov 27, 2018 12:20
--- NOTE | 2018-11-27 12:50 | PDOC ---
PROGRESS NOTES Assessment Problems Medical Problems: (1) Acute hypercapnic respiratory failure Status: Acute Anisocoria. Hallucination, visual. 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 Delusion. Confusion. Metabolic encephalopathy. Respiratory failure. COPD, maybe end stage. UTI. CHF. Cognitive impairment. Obesity. Longstanding history of smoking. Plan As I entered the room, I was placed on the phone with the patient's daughter who tells me that the family does not agree to comfort care and wants her transfer to [facility]. I discussed with the nurse Repeat brain MRI with contrast, but family wants to hold off until she goes to [place] Subjective None Objective Vital Signs Date Time Temp Pulse Resp B/P (MAP) Pulse Ox O2 Delivery O2 Flow Rate FiO2 11/27/18 11:50 98.4 83 34 130/55 (80) 97 BiPAP/CPAP 98.4 11/27/18 03:38 2.0 Intake and Output 11/27/18 06:59 Intake Total 640 ml Output Total 1990 ml Balance -1350 ml Intake Oral 0 ml IV Total 640 ml Output Urine Total 1990 ml PHYSICAL EXAM Alert. Oriented to person, difficult to understand on BiPAP PERRL. EOMI. CN: Right pupil 1.5 mm, left 2-3 mm. Muscle tone: normal. Muscle strength: moves all extremities DTR: 1+ Plantar reflex: silent Gait: not examined in bed. Sensory exam: no abnormal findings. No cerebellar signs elicited. Review of Relevant I have reviewed the following items heaven (where applicable) has been applied. Labs Laboratory Tests Test 11/26/18 23:10 11/27/18 08:35 Urine Collection Type Unknown Urine Color Yellow Urine Clarity Clear Urine pH 6.5 Urine Specific [place] 1.015 Urine Protein Negative mg/dL (NEG-TRACE) Urine Glucose (UA) Negative mg/dL (NEG) Urine Ketones (Stick) 40 mg/dL (NEG) Urine Blood Large (NEG) Urine Nitrite Negative (NEG) Urine Bilirubin Negative (NEG) Urine Urobilinogen Dipstick 0.2 mg/dL (0.2 mg/dL) Urine Leukocyte Esterase Trace (NEG) Urine RBC Tntc /HPF (0-2) Urine WBC 1-4 /HPF (0-4) Urine Bacteria Few /HPF (0-FEW) Urine Mucus Mod /LPF White Blood Count 12.8 x10^3/uL (4.0-11.0) Red Blood Count 3.63 x10^6/uL (3.50-5.40) Hemoglobin 10.7 g/dL (12.0-15.5) Hematocrit 32.3 % (36.0-47.0) Mean Corpuscular Volume 89 fL (79-100) Mean Corpuscular Hemoglobin 29 pg (25-35) Mean Corpuscular Hemoglobin Concent 33 g/dL (31-37) Red Cell Distribution Width 14.8 % (11.5-14.5) Platelet Count 230 x10^3/uL (140-400) Neutrophils (%) (Auto) 80 % (31-73) Lymphocytes (%) (Auto) 10 % (24-48) Monocytes (%) (Auto) 8 % (0-9) Eosinophils (%) (Auto) 1 % (0-3) Basophils (%) (Auto) 0 % (0-3) Neutrophils # (Auto) 10.3 x10^3/uL (1.8-7.7) Lymphocytes # (Auto) 1.3 x10^3/uL (1.0-4.8) Monocytes # (Auto) 1.1 x10^3/uL (0.0-1.1) Eosinophils # (Auto) 0.1 x10^3/uL (0.0-0.7) Basophils # (Auto) 0.0 x10^3/uL (0.0-0.2) Erythrocyte Sedimentation Rate 3 (0-25) Sodium Level 144 mmol/L (136-145) Potassium Level 3.4 mmol/L (3.5-5.1) Chloride Level 100 mmol/L (98-107) Carbon Dioxide Level 38 mmol/L (21-32) Anion Gap 6 (6-14) Blood Urea Nitrogen 12 mg/dL (7-20) Creatinine 0.4 mg/dL (0.6-1.0) Estimated GFR (Cockcroft-Gault) 160.7 Glucose Level 85 mg/dL (70-99) Calcium Level 8.7 mg/dL (8.5-10.1) Laboratory Tests Test 11/26/18 23:10 11/27/18 08:35 Urine Collection Type Unknown Urine Color Yellow Urine Clarity Clear Urine pH 6.5 Urine Specific [place] 1.015 Urine Protein Negative mg/dL (NEG-TRACE) Urine Glucose (UA) Negative mg/dL (NEG) Urine Ketones (Stick) 40 mg/dL (NEG) Urine Blood Large (NEG) Urine Nitrite Negative (NEG) Urine Bilirubin Negative (NEG) Urine Urobilinogen Dipstick 0.2 mg/dL (0.2 mg/dL) Urine Leukocyte Esterase Trace (NEG) Urine RBC Tntc /HPF (0-2) Urine WBC 1-4 /HPF (0-4) Urine Bacteria Few /HPF (0-FEW) Urine Mucus Mod /LPF White Blood Count 12.8 x10^3/uL (4.0-11.0) Red Blood Count 3.63 x10^6/uL (3.50-5.40) Hemoglobin 10.7 g/dL (12.0-15.5) Hematocrit 32.3 % (36.0-47.0) Mean Corpuscular Volume 89 fL (79-100) Mean Corpuscular Hemoglobin 29 pg (25-35) Mean Corpuscular Hemoglobin Concent 33 g/dL (31-37) Red Cell Distribution Width 14.8 % (11.5-14.5) Platelet Count 230 x10^3/uL (140-400) Neutrophils (%) (Auto) 80 % (31-73) Lymphocytes (%) (Auto) 10 % (24-48) Monocytes (%) (Auto) 8 % (0-9) Eosinophils (%) (Auto) 1 % (0-3) Basophils (%) (Auto) 0 % (0-3) Neutrophils # (Auto) 10.3 x10^3/uL (1.8-7.7) Lymphocytes # (Auto) 1.3 x10^3/uL (1.0-4.8) Monocytes # (Auto) 1.1 x10^3/uL (0.0-1.1) Eosinophils # (Auto) 0.1 x10^3/uL (0.0-0.7) Basophils # (Auto) 0.0 x10^3/uL (0.0-0.2) Erythrocyte Sedimentation Rate 3 (0-25) Sodium Level 144 mmol/L (136-145) Potassium Level 3.4 mmol/L (3.5-5.1) Chloride Level 100 mmol/L (98-107) Carbon Dioxide Level 38 mmol/L (21-32) Anion Gap 6 (6-14) Blood Urea Nitrogen 12 mg/dL (7-20) Creatinine 0.4 mg/dL (0.6-1.0) Estimated GFR (Cockcroft-Gault) 160.7 Glucose Level 85 mg/dL (70-99) Calcium Level 8.7 mg/dL (8.5-10.1) Microbiology 11/14/18 Blood Culture - Final, Complete NO GROWTH AFTER 5 DAYS 11/14/18 Urine Culture - Final, Complete 11/14/18 Urine Culture Result 1 (KRISTA) - Final, Complete Medications Current Medications Methylprednisolone Sodium Succinate (SOLU-Medrol 125MG VIAL) 125 mg 1X ONCE IV Last administered on 11/14/18at 17:14; Start 11/14/18 at 16:45; Stop 11/14/18 at 16:46; Status DC Albuterol/ Ipratropium (Duoneb) 3 ml 1X ONCE NEB Last administered on 11/14/18at 17:04; Start 11/14/18 at 16:45; Stop 11/14/18 at 16:46; Status DC Ondansetron HCl (Zofran) 4 mg 1X ONCE IV Last administered on 11/14/18at 17:13; Start 11/14/18 at 17:00; Stop 11/14/18 at 17:01; Status DC Propofol 0 ml @ As Directed STK-MED ONCE IV ; Start 11/14/18 at 18:09; Stop 11/14/18 at 18:10; Status DC Etomidate (Amidate) 20 mg STK-MED ONCE IV ; Start 11/14/18 at 18:17; Stop 11/14/18 at 18:18; Status DC Rocuronium [place] (Zemuron) 50 mg STK-MED ONCE .ROUTE ; Start 11/14/18 at 18:17; Stop 11/14/18 at 18:18; Status DC Propofol 100 ml @ 0 mls/hr CONT PRN IV SEE PROTOCOL Last administered on 11/14/18at 18:00; Start 11/14/18 at 18:30; Stop 11/15/18 at 07:38; Status DC Chlorhexidine Gluconate (Peridex) 15 ml BID MM ; Start 11/14/18 at 21:00; Stop 11/15/18 at 16:12; Status DC Midazolam HCl 100 ml @ 0 mls/hr CONT PRN IV SEE PROTOCOL; Start 11/14/18 at 18:30; Stop 11/14/18 at 20:14; Status DC Cefepime HCl (Maxipime) 2 gm Q12HR IVP Last administered on 11/20/18at 20:52; Start 11/14/18 at 18:27; Stop 11/21/18 at 07:30; Status DC Azithromycin 250 ml @ 250 mls/hr 1X ONCE IV Last administered on 11/14/18at 22:56; Start 11/14/18 at 18:30; Stop 11/14/18 at 19:29; Status DC Vancomycin HCl (Vanco Per Pharmacy) 1 each PRN DAILY PRN MC SEE COMMENTS Last administered on 11/15/18at 10:17; Start 11/14/18 at 18:30; Stop 11/16/18 at 08:07; Status DC Propofol 50 ml @ 0 mls/hr 1X ONCE IV ; Start 11/14/18 at 18:30; Stop 11/14/18 at 18:31; Status DC Etomidate (Amidate) 20 mg 1X ONCE IV Last administered on 11/14/18at 18:11; Start 11/14/18 at 18:30; Stop 11/14/18 at 18:31; Status DC Rocuronium [place] (Zemuron) 50 mg 1X ONCE IV Last administered on 11/14/18at 18:11; Start 11/14/18 at 18:30; Stop 11/14/18 at 18:31; Status DC Sodium Chloride 1,000 ml @ 1,000 mls/hr 1X ONCE IV Last administered on 11/14/18at 18:11; Start 11/14/18 at 18:30; Stop 11/14/18 at 19:29; Status DC Vancomycin HCl 1.75 gm/Sodium Chloride 500 ml @ 250 mls/hr 1X ONCE IV Last administered on 11/14/18at 21:00; Start 11/14/18 at 19:00; Stop 11/14/18 at 20:59; Status DC Midazolam HCl 100 ml @ 5 mls/hr CONT PRN IV SEE I/O RECORD Last administered on 11/15/18at 06:05; Start 11/14/18 at 20:30; Stop 11/16/18 at 12:47; Status DC Sodium Chloride 1,000 ml @ 1,000 mls/hr 1X ONCE IV Last administered on 11/14/18at 21:07; Start 11/14/18 at 21:00; Stop 11/14/18 at 21:59; Status DC Methylprednisolone Sodium Succinate (SOLU-Medrol 125MG VIAL) 125 mg Q12HR IV Last administered on 11/19/18at 08:54; Start 11/15/18 at 09:00; Stop 11/19/18 at 10:15; Status DC Albuterol/ Ipratropium (Duoneb) 3 ml Q4HRS NEB ; Start 11/15/18 at 00:00; Status Cancel Sodium Chloride 1,000 ml @ 75 mls/hr [id number] IV Last administered on 11/26/18at 01:00; Start 11/14/18 at 22:00; Stop 11/26/18 at 14:25; Status DC Sodium Chloride 1,000 ml @ 999 mls/hr 1X ONCE IV ; Start 11/14/18 at 20:45; Stop 11/14/18 at 21:45; Status UNV Albuterol/ Ipratropium (Duoneb) 3 ml RTQID NEB ; Start 11/15/18 at 08:00; Stop 11/15/18 at 08:00; Status DC Albuterol Sulfate (Ventolin Neb Soln) 2.5 mg PRN Q4HRS PRN NEB SHORTNESS OF BREATH Last administered on 11/26/18at 20:50; Start 11/14/18 at 20:45 Norepinephrine Bitartrate 250 ml @ 1.875 mls/ hr CONT PRN IV SEE I/O RECORD Last administered on 11/15/18at 02:33; Start 11/14/18 at 22:30; Stop 11/16/18 at 12:47; Status DC Sodium Chloride 1,000 ml @ 999 mls/hr 1X ONCE IV Last administered on 11/14/18at 22:55; Start 11/14/18 at 23:00; Stop 11/15/18 at 00:00; Status DC Albuterol/ Ipratropium (Duoneb) 3 ml Q4HRS NEB Last administered on 11/27/18at 06:50; Start 11/15/18 at 00:00 Vancomycin HCl 1 gm/Sodium Chloride 250 ml @ 250 mls/hr Q12H IV Last administered on 11/15/18at 09:53; Start 11/15/18 at 09:00; Stop 11/15/18 at 12:00; Status DC Vancomycin HCl (Vancomycin Trough Level) 1 each 1X ONCE MC ; Start 11/16/18 at 20:30; Stop 11/16/18 at 20:31; Status Cancel Fentanyl Citrate 30 ml @ 0 mls/hr CONT PRN IV SEE PROTOCOL Last administered on 11/16/18at 04:50; Start 11/15/18 at 07:45; Stop 11/16/18 at 12:47; Status DC Sodium Chloride 1,000 ml @ 1,000 mls/hr 1X ONCE IV Last administered on 11/15/18at 09:54; Start 11/15/18 at 09:15; Stop 11/15/18 at 10:14; Status DC Famotidine (Pepcid Vial) 20 mg BID IVP Last administered on 11/27/18at 08:29; Start 11/15/18 at 10:00 Enoxaparin Sodium (Lovenox Per Pharmacy Prophylaxis Dosing) 1 each DAILY MC Last administered on 11/17/18 09:00; Start 11/16/18 at 09:00; Stop 11/21/18 at 13:17; Status DC Enoxaparin Sodium (Lovenox 40mg Syringe) 40 mg Q24H SQ Last administered on 11/27/18at 08:36; Start 11/15/18 at 10:00 Vancomycin HCl 1 gm/Sodium Chloride 250 ml @ 250 mls/hr Q18H IV Last administered on 11/16/18at 03:01; Start 11/16/18 at 03:00; Stop 11/16/18 at 08:06; Status DC Lorazepam (Ativan Inj) 2 mg PRN Q4HRS PRN IV ANXIETY / AGITATION Last administered on 11/16/18at 15:28; Start 11/15/18 at 12:45; Stop 11/21/18 at 13:17; Status DC Propofol 100 ml @ 0 mls/hr CONT PRN IV SEE PROTOCOL Last administered on 11/16/18at 04:48; Start 11/15/18 at 16:15; Stop 11/16/18 at 12:47; Status DC Flumazenil (Romazicon) 0.1 mg 1X ONCE IV Last administered on 11/16/18at 16:46; Start 11/16/18 at 16:45; Stop 11/16/18 at 16:46; Status DC Flumazenil (Romazicon) 0.1 mg 1X ONCE IV Last administered on 11/16/18at 17:49; Start 11/16/18 at 17:45; Stop 11/16/18 at 17:49; Status DC Propofol 100 ml @ As Directed STK-MED ONCE IV ; Start 11/16/18 at 20:46; Stop 11/16/18 at 20:47; Status DC Propofol 100 ml @ 1.145 mls/ hr CONT PRN IV SEE I/O RECORD Last administered on 11/20/18at 08:17; Start 11/17/18 at 02:30; Stop 11/21/18 at 13:17; Status DC Fentanyl Citrate (Fentanyl 2ml Vial) 50 mcg PRN Q2HR PRN IV PAIN Last administered on 11/17/18at 02:41; Start 11/17/18 at 02:30; Stop 11/21/18 at 13:17; Status DC Fentanyl Citrate 30 ml @ 0 mls/hr CONT PRN IV SEE PROTOCOL Last administered on 11/20/18at 06:39; Start 11/17/18 at 07:15; Stop 11/21/18 at 13:17; Status DC Dextrose (Dextrose 50%-Water Syringe) 12.5 gm PRN Q15MIN PRN IV SEE COMMENTS; Start 11/17/18 at 11:30; Stop 11/21/18 at 13:17; Status DC Propofol (Diprivan) 200 mg STK-MED ONCE IV ; Start 11/16/18 at 12:00; Stop 11/17/18 at 15:00; Status DC Rocuronium [place] (Zemuron) 50 mg STK-MED ONCE .ROUTE ; Start 11/16/18 at 12:00; Stop 11/17/18 at 15:00; Status DC Methylprednisolone Sodium Succinate (SOLU-Medrol 40MG VIAL) 40 mg Q12HR IV Last administered on 11/24/18at 08:48; Start 11/19/18 at 21:00; Stop 11/24/18 at 11:27; Status DC Piperacillin Sod/ Tazobactam Sod 3.375 gm/Sodium Chloride 50 ml @ 100 mls/hr Q6HRS IV Last administered on 11/23/18at 06:09; Start 11/21/18 at 08:00; Stop 11/23/18 at 07:23; Status DC Ondansetron HCl (Zofran) 4 mg PRN Q6HRS PRN IV NAUSEA/VOMITING Last administered on 11/21/18at 07:57; Start 11/21/18 at 08:00 Enoxaparin Sodium (Lovenox 40mg Syringe) 40 mg Q24H SQ ; Start 11/22/18 at 09:00; Status UNV Multivitamins (Thera M Plus) 1 tab DAILY PO ; Start 11/22/18 at 11:30 Prednisone (Prednisone) 30 mg DAILY PO ; Start 11/25/18 at 09:00; Stop 11/25/18 at 09:26; Status DC Aspirin (Children'S Aspirin) 162 mg DAILYWBKFT PO ; Start 11/24/18 at 18:00; Stop 11/27/18 at 07:42; Status DC Methylprednisolone Sodium Succinate (SOLU-Medrol 40MG VIAL) 40 mg DAILY IV Last administered on 11/27/18at 08:32; Start 11/25/18 at 09:30 Gadoterate Meglumine (Dotarem) 16 ml 1X ONCE IVP ; Start 11/25/18 at 11:00; Stop 11/25/18 at 11:01; Status DC Morphine Sulfate (Morphine Sulfate) 2 mg PRN Q1HR PRN IV PAIN Last administered on 11/27/18at 10:41; Start 11/25/18 at 19:45 Lorazepam (Ativan Inj) 2 mg PRN Q2HR PRN IV SEVERE ANXIETY / AGITATION Last administered on 11/27/18at 09:17; Start 11/25/18 at 19:45 Lorazepam (Ativan Inj) 1 mg PRN Q4HRS PRN IV MODERATE ANXIETY / AGITATION; Start 11/26/18 at 21:30 Amino Acids/ Glycerin/ Electrolytes 1,000 ml @ 75 mls/hr [id number] IV Last administered on 11/27/18at 12:30; Start 11/26/18 at 22:30 Active Scripts Active Guaifenesin Dm Syrup (Guaifenesin/Dextromethorphan) 5 Ml Syrup 10 Ml PO PRN Q6HRS PRN MDD 1 7 Days Reported Prednisone (Prednisone) 10 Mg Tablet 10 Mg PO DAILY Fluoxetine Hcl 20 Mg Capsule 20 Mg PO DAILY Incruse Ellipta (Umeclidinium [place]) 62.5 Mcg Blst.w.dev 62.5 Mcg IH DAILY Breo Ellipta 100-25 Mcg Inh (Fluticasone/Vilanterol) 1 Each Aer.pow.ba 1 Puff IH DAILY Tudorza Pressair (Aclidinium [place]) 400 Mcg Aer.pow.ba 400 Mcg IH DAILY Vitals/I & O Vital Sign - Last 24 Hours 11/26/18 11/26/18 11/26/18 11/26/18 15:23 18:18 19:00 20:44 Temp 98.3 98.3 Pulse 84 Resp 36 B/P (MAP) 130/67 (88) Pulse Ox 92 96 O2 Delivery Nasal Cannula Venturi Mask Venturi Mask Venturi Mask O2 Flow Rate 2.0 9.0 2.0 11/26/18 11/26/18 11/26/18 11/27/18 21:01 23:06 23:45 00:05 Temp 97.5 97.5 Pulse 81 Resp 20 B/P (MAP) 137/73 (94) Pulse Ox 95 96 O2 Delivery BiPAP/CPAP Bi-pap Venturi Mask BiPAP/CPAP O2 Flow Rate 2.0 11/27/18 11/27/18 11/27/18 11/27/18 02:13 03:20 03:38 03:52 Temp 97.4 97.4 Pulse 85 Resp 28 32 B/P (MAP) 130/65 (86) Pulse Ox 92 92 O2 Delivery BiPAP/CPAP BiPAP/CPAP Venturi Mask O2 Flow Rate 2.0 11/27/18 11/27/18 11/27/18 11/27/18 04:08 05:05 06:51 07:00 Temp 98.2 98.2 Pulse 83 Resp 26 40 B/P (MAP) 121/60 (80) Pulse Ox 94 88 94 O2 Delivery BiPAP/CPAP BiPAP/CPAP BiPAP/CPAP BiPAP/CPAP 11/27/18 11/27/18 11/27/18 11/27/18 07:04 08:25 10:51 11:50 Temp 98.4 98.4 Pulse 83 Resp 20 34 B/P (MAP) 130/55 (80) Pulse Ox 97 86 97 O2 Delivery Room Air Bi-pap BiPAP/CPAP BiPAP/CPAP Intake and Output 11/26/18 11/26/18 11/27/18 14:59 22:59 06:59 Intake Total 640 ml 0 ml Output Total 540 ml 1450 ml Balance 100 ml 0 ml -1450 ml Images Brain MRI 11/24: BRAIN W/O CONTRAST History: Mental status changes. Left pupil dilated. Technique: Multiplanar, multi sequential MR imaging was performed of the brain without contrast. Comparison: None Findings: T2/FLAIR hyperintense subcortical/cortical lesions within the bilateral occipital lobes. Additional T2/FLAIR hyperintensity within the left inferior cerebellum. Additional signal abnormality within the bilateral brachium pontis. Minimal additional T2/FLAIR hyperintensities within the hemispheric white matter, likely within normal range for age. No acute infarct. No intracranial hemorrhage. No hydrocephalus. Extra-axial spaces are unremarkable. Postoperative changes bilateral globes. Right maxillary sinus mucosal thickening inferiorly. Right maxillary sinus chronic osteitis. Secretions within the right sphenoid sinus. Mastoid air cells are clear. Impression: 1. Multifocal T2/FLAIR hyperintense foci within the subcortical/cortical occipital lobes including the left inferior cerebellum. Recommend contrast to further evaluate and exclude underlying lesions. Alternatively findings may relate to subacute infarcts, less likely PRESS. 2. Bilateral brachium pontis signal abnormalities. Recommend attention on postcontrast imaging. AUREA MIKE MD Nov 27, 2018 12:50
--- NOTE | 2018-11-27 14:25 | NUR ---
Daughters at the desk want pt transferred to [facility] per MD note need accepting MD, relayed that info to family trying to find MD at this point and then will notify
--- NOTE | 2018-11-27 14:43 | NUR ---
Family is now requesting transfer to [facility], paged social sciences lecturer for assistance
[2018-11-27 15:00] VITALS: BP 148/74
--- NOTE | 2018-11-27 15:06 | NUR ---
Family wants to continue to have treatments completed until they can talk with marriage and family social worker, paged Rebekah [phone] from speech for swallowing re-evaluation
--- NOTE | 2018-11-27 16:02 | NUR ---
Rec'd telephone call from Dee wanting to speak with social service, gave her [facility] Pt. Liaison telephone #, also left message fo her to contact family members regarding pt.
--- NOTE | 2018-11-27 16:44 | NUR ---
Daughter at desk wants Dobbhoff placed with swallow study being repeated, since unable to contact Speech Dept
--- NOTE | 2018-11-27 16:59 | NUR ---
SS following up with discharge planning. Pt's family requesting hospital transfer to [facility], ; fax [phone]. SS contacted [facility] transfer team and made request for transfer. SS provided RN and physician contact info. SS faxed requested information. Packet placed on chart. SS will await acceptance decision and will proceed accordingly. Pt's family notified.
--- NOTE | 2018-11-27 17:00 | NUR ---
#8 Fr Dobbhoff feeding tube inserted into right nare without difficulty, tolerated procedure well, called for KUB to confirm placement, family members at bedside, Hob elevated 45 + degrees, Bi-pap operational
--- NOTE | 2018-11-27 17:15 | NUR ---
Spoke with Lizbeth at [facility] declining transfer at this time, stated Dr. Woods spoke with Dr. Woods there in regards to transfer
--- NOTE | 2018-11-27 17:50 | NUR ---
Family members wanted to speak with Mookie Woods-Dr. Lagunas public relations professional unable to speak family members regarding pt since he doesn't know the case nor has he seen her, Dr. Peggy baldwin return in am, notified Cora of this
[2018-11-27 19:35] VITALS: BP 155/62
--- NOTE | 2018-11-27 23:27 | RAD ---
INDICATION: Enteric tube placement COMPARISON: November 16, 2018 IMPRESSION: Abdomen: Single view obtained. Enteric tube with tip underneath the diaphragm near expected location of the stomach. Prominent air-filled loops of bowel are seen throughout the abdomen. Causes such as ileus not excluded. Electronically signed by: Horacio Tinajero MD (11/27/2018 11:24 PM) [facility]
[2018-11-27 23:40] VITALS: BP 155/72
[2018-11-28] MEDS: AMINO AC 3%/ELECTROLYTE/GLYCER 1,000 ML IV SCH ×2 (01:10→20:31)
[2018-11-28] MEDS: IPRATRPIUM/ALBUTEROL 0.5/2.5MG 3 ML NEBU. NEB SCH ×6 (03:21→23:21)
[2018-11-28 03:40] VITALS: BP 135/63
[2018-11-28 07:15] VITALS: BP 127/67
[2018-11-28] MEDS: methylPREDNISolone SOD SUCC PF 40 MG/ML VIAL. IV SCH (08:33)
[2018-11-28] MEDS: FAMOTIDINE 20 MG/2 ML VIAL IVP SCH ×2 (08:34→20:32)
[2018-11-28] MEDS: MULTIVITAMIN with MINERAL TABLET. PO SCH (08:34)
[2018-11-28] MEDS: POTASSIUM CHLORIDE 10MEQ 100 ML IV SCH ×2 (10:47→13:06)
[2018-11-28] MEDS: ENOXAPARIN 40 MG/0.4 ML SYRINGE. SQ SCH (10:47)
[2018-11-28 10:50] VITALS: BP 115/65
--- NOTE | 2018-11-28 11:37 | PDOC ---
PULMONARY PROGRESS NOTES Subjective extubated 11/21. Returned to ICU 11/24 due to worsening hypoxia. back on floor DNR again on/ off bipap. on prn ativan/ ms for air hunger Vitals Vital Signs Date Time Temp Pulse Resp B/P (MAP) Pulse Ox O2 Delivery O2 Flow Rate FiO2 11/28/18 08:30 97 BiPAP/CPAP 11/28/18 07:15 97.8 68 40 127/67 (87) 97.8 11/27/18 20:06 5.0 General: Lethargic Lungs: Other (decrease bs, no rales, rhonchi or wheezes) Cardiovascular: S1, S2 Abdomen: Soft, Non-tender, Other (no mass) Extremities: No Edema Skin: Warm Labs Laboratory Tests Test 11/26/18 23:10 11/27/18 08:35 Urine Collection Type Unknown Urine Color Yellow Urine Clarity Clear Urine pH 6.5 Urine Specific [place] 1.015 Urine Protein Negative mg/dL (NEG-TRACE) Urine Glucose (UA) Negative mg/dL (NEG) Urine Ketones (Stick) 40 mg/dL (NEG) Urine Blood Large (NEG) Urine Nitrite Negative (NEG) Urine Bilirubin Negative (NEG) Urine Urobilinogen Dipstick 0.2 mg/dL (0.2 mg/dL) Urine Leukocyte Esterase Trace (NEG) Urine RBC Tntc /HPF (0-2) Urine WBC 1-4 /HPF (0-4) Urine Bacteria Few /HPF (0-FEW) Urine Mucus Mod /LPF White Blood Count 12.8 x10^3/uL (4.0-11.0) Red Blood Count 3.63 x10^6/uL (3.50-5.40) Hemoglobin 10.7 g/dL (12.0-15.5) Hematocrit 32.3 % (36.0-47.0) Mean Corpuscular Volume 89 fL (79-100) Mean Corpuscular Hemoglobin 29 pg (25-35) Mean Corpuscular Hemoglobin Concent 33 g/dL (31-37) Red Cell Distribution Width 14.8 % (11.5-14.5) Platelet Count 230 x10^3/uL (140-400) Neutrophils (%) (Auto) 80 % (31-73) Lymphocytes (%) (Auto) 10 % (24-48) Monocytes (%) (Auto) 8 % (0-9) Eosinophils (%) (Auto) 1 % (0-3) Basophils (%) (Auto) 0 % (0-3) Neutrophils # (Auto) 10.3 x10^3/uL (1.8-7.7) Lymphocytes # (Auto) 1.3 x10^3/uL (1.0-4.8) Monocytes # (Auto) 1.1 x10^3/uL (0.0-1.1) Eosinophils # (Auto) 0.1 x10^3/uL (0.0-0.7) Basophils # (Auto) 0.0 x10^3/uL (0.0-0.2) Erythrocyte Sedimentation Rate 3 (0-25) Sodium Level 144 mmol/L (136-145) Potassium Level 3.4 mmol/L (3.5-5.1) Chloride Level 100 mmol/L (98-107) Carbon Dioxide Level 38 mmol/L (21-32) Anion Gap 6 (6-14) Blood Urea Nitrogen 12 mg/dL (7-20) Creatinine 0.4 mg/dL (0.6-1.0) Estimated GFR (Cockcroft-Gault) 160.7 Glucose Level 85 mg/dL (70-99) Calcium Level 8.7 mg/dL (8.5-10.1) Medications Active Scripts Medications Dose Route/Sig Max Daily Dose Days Date Category Guaifenesin Dm Syrup (Guaifenesin/Dextromethorphan) 5 Ml Syrup 10 Ml PO PRN Q6HRS PRN MDD 1 7 10/03/18 Rx Incruse Ellipta (Umeclidinium [place]) 62.5 Mcg Blst.w.dev 62.5 Mcg IH DAILY 07/11/17 Reported Breo Ellipta 100-25 Mcg Inh (Fluticasone/Vilanterol) 1 Each Aer.pow.ba 1 Puff IH DAILY 07/11/17 Reported Tudorza Pressair (Aclidinium [place]) 400 Mcg Aer.pow.ba 400 Mcg IH DAILY 07/11/17 Reported Comments CXR 11/24 reviewed no focal infiltrates infiltrates Impression . 1. [id number] hypercapnic respiratory failure secondary to acute exacerbation of chronic obstructive pulmonary disease.. Re-intubated 11/16, extubated 11/21 back on/ off BiPap 2. Shock, likely a combination of hypovolemic and septic shock. off levo, resolved 3. Low-grade fever POA. Source could be in the lungs, although chest x-ray does not show definite consolidation , no further fever 4. Underlying severe chronic obstructive pulmonary disease with chronic hypercapnia. 5. Mild azotemia. 6. [id number] protein-calorie malnutrition. 7. Moderate Plan . 1. Will continue prn bipap, steroids, bronchodilators. prn benzo/ MS for air hunger 2. Deep venous thrombosis prophylaxis. 3. Initiate nutrition via DHT/ not safe to eat PO 4. elevate hob 5. d/w daughter Tiana again today. explained the severity of COPD. and combination of aggressive and supportive care. she understands that but still wants to transfer to [facility]. d/w DR NASSAR. XENA MCGRAW MD Nov 28, 2018 11:37
--- NOTE | 2018-11-28 11:45 | PDOC ---
PROGRESS NOTES Chief Complaint Chief Complaint acute hypoxic and hypercarbic respiratory failure NIPPV dependent sepsis and shock on admit COPD with bronchitis malnutrition aortic stenosis DNR History of Present Illness History of Present Illness NO Family at bedside Hence I had the chance to ask the patient myself what does she want to do RN as witnessed Multiple times patient told me she is tired, wants to be comfort care, agrees with DNR Does not want any transfer to any hospital whatsoever Advised the nurse to tell the dtrs about this-daughter is aggressive but the patient wants to be left comfortable only dw pulmo too Plan Would advise comfort care, hospice candidate In the meantime since active medical treatment LTAC screen is on the works Dr. Snider has also discussed with daughters Discussed with pulmonary Apparently dtrs as of today still wanted to transfer I attempted to transfer to [facility] 11/27/18-rejected Vitals Vitals Vital Signs Date Time Temp Pulse Resp B/P (MAP) Pulse Ox O2 Delivery O2 Flow Rate FiO2 11/28/18 10:50 98.3 84 42 115/65 (82) 93 Nasal Cannula 3.0 98.3 Physical Exam Physical Exam GENERAL:NAD, Very Alert coop - pleasant. Came off bipap to NC no problem HEENT: Pupils equal, edentulous and clear NECK: Supple. LUNGS: Clear anteriorly HEART: S1, S2. + murmur ABDOMEN: little distended, soft, + BS : Carvalho in place EXTREMITIES: No cyanosis, 1 edema. LUE1 -2 DERMATOLOGIC: Warm, dry. No generalized rash. NEUROLOGIC: alert/coop PIV General: Alert, Cooperative, No acute distress, Other (confused to details) Heart: Regular rate (SR no ectopies), Other (3/6 systolic murmur to AKIN border) Lungs: Other (decrease bs, no rales, rhonchi or wheezes) Abdomen: Normal bowel sounds, Soft, No tenderness Extremities: No clubbing, No cyanosis Skin: No breakdown, No significant lesion Review of Systems Review of Systems tired, SOA, minimal ROS Assessment and Plan Assessmemt and Plan Problems Medical Problems: (1) Acute hypercapnic respiratory failure Status: Acute Comment Review of Relevant I have reviewed the following items heaven (where applicable) has been applied. Labs Laboratory Tests Test 11/26/18 23:10 11/27/18 08:35 Urine Collection Type Unknown Urine Color Yellow Urine Clarity Clear Urine pH 6.5 Urine Specific [place] 1.015 Urine Protein Negative mg/dL (NEG-TRACE) Urine Glucose (UA) Negative mg/dL (NEG) Urine Ketones (Stick) 40 mg/dL (NEG) Urine Blood Large (NEG) Urine Nitrite Negative (NEG) Urine Bilirubin Negative (NEG) Urine Urobilinogen Dipstick 0.2 mg/dL (0.2 mg/dL) Urine Leukocyte Esterase Trace (NEG) Urine RBC Tntc /HPF (0-2) Urine WBC 1-4 /HPF (0-4) Urine Bacteria Few /HPF (0-FEW) Urine Mucus Mod /LPF White Blood Count 12.8 x10^3/uL (4.0-11.0) Red Blood Count 3.63 x10^6/uL (3.50-5.40) Hemoglobin 10.7 g/dL (12.0-15.5) Hematocrit 32.3 % (36.0-47.0) Mean Corpuscular Volume 89 fL (79-100) Mean Corpuscular Hemoglobin 29 pg (25-35) Mean Corpuscular Hemoglobin Concent 33 g/dL (31-37) Red Cell Distribution Width 14.8 % (11.5-14.5) Platelet Count 230 x10^3/uL (140-400) Neutrophils (%) (Auto) 80 % (31-73) Lymphocytes (%) (Auto) 10 % (24-48) Monocytes (%) (Auto) 8 % (0-9) Eosinophils (%) (Auto) 1 % (0-3) Basophils (%) (Auto) 0 % (0-3) Neutrophils # (Auto) 10.3 x10^3/uL (1.8-7.7) Lymphocytes # (Auto) 1.3 x10^3/uL (1.0-4.8) Monocytes # (Auto) 1.1 x10^3/uL (0.0-1.1) Eosinophils # (Auto) 0.1 x10^3/uL (0.0-0.7) Basophils # (Auto) 0.0 x10^3/uL (0.0-0.2) Erythrocyte Sedimentation Rate 3 (0-25) Sodium Level 144 mmol/L (136-145) Potassium Level 3.4 mmol/L (3.5-5.1) Chloride Level 100 mmol/L (98-107) Carbon Dioxide Level 38 mmol/L (21-32) Anion Gap 6 (6-14) Blood Urea Nitrogen 12 mg/dL (7-20) Creatinine 0.4 mg/dL (0.6-1.0) Estimated GFR (Cockcroft-Gault) 160.7 Glucose Level 85 mg/dL (70-99) Calcium Level 8.7 mg/dL (8.5-10.1) Microbiology 11/14/18 Blood Culture - Final, Complete NO GROWTH AFTER 5 DAYS 11/14/18 Urine Culture - Final, Complete 11/14/18 Urine Culture Result 1 (KRISTA) - Final, Complete Medications Current Medications Methylprednisolone Sodium Succinate (SOLU-Medrol 125MG VIAL) 125 mg 1X ONCE IV Last administered on 11/14/18at 17:14; Start 11/14/18 at 16:45; Stop 11/14/18 at 16:46; Status DC Albuterol/ Ipratropium (Duoneb) 3 ml 1X ONCE NEB Last administered on 11/14/18at 17:04; Start 11/14/18 at 16:45; Stop 11/14/18 at 16:46; Status DC Ondansetron HCl (Zofran) 4 mg 1X ONCE IV Last administered on 11/14/18at 17:13; Start 11/14/18 at 17:00; Stop 11/14/18 at 17:01; Status DC Propofol 0 ml @ As Directed STK-MED ONCE IV ; Start 11/14/18 at 18:09; Stop 11/14/18 at 18:10; Status DC Etomidate (Amidate) 20 mg STK-MED ONCE IV ; Start 11/14/18 at 18:17; Stop 11/14/18 at 18:18; Status DC Rocuronium [place] (Zemuron) 50 mg STK-MED ONCE .ROUTE ; Start 11/14/18 at 18:17; Stop 11/14/18 at 18:18; Status DC Propofol 100 ml @ 0 mls/hr CONT PRN IV SEE PROTOCOL Last administered on 11/14/18at 18:00; Start 11/14/18 at 18:30; Stop 11/15/18 at 07:38; Status DC Chlorhexidine Gluconate (Peridex) 15 ml BID MM ; Start 11/14/18 at 21:00; Stop 11/15/18 at 16:12; Status DC Midazolam HCl 100 ml @ 0 mls/hr CONT PRN IV SEE PROTOCOL; Start 11/14/18 at 18:30; Stop 11/14/18 at 20:14; Status DC Cefepime HCl (Maxipime) 2 gm Q12HR IVP Last administered on 11/20/18at 20:52; Start 11/14/18 at 18:27; Stop 11/21/18 at 07:30; Status DC Azithromycin 250 ml @ 250 mls/hr 1X ONCE IV Last administered on 11/14/18at 22:56; Start 11/14/18 at 18:30; Stop 11/14/18 at 19:29; Status DC Vancomycin HCl (Vanco Per Pharmacy) 1 each PRN DAILY PRN MC SEE COMMENTS Last administered on 11/15/18at 10:17; Start 11/14/18 at 18:30; Stop 11/16/18 at 08:07; Status DC Propofol 50 ml @ 0 mls/hr 1X ONCE IV ; Start 11/14/18 at 18:30; Stop 11/14/18 at 18:31; Status DC Etomidate (Amidate) 20 mg 1X ONCE IV Last administered on 11/14/18at 18:11; Start 11/14/18 at 18:30; Stop 11/14/18 at 18:31; Status DC Rocuronium [place] (Zemuron) 50 mg 1X ONCE IV Last administered on 11/14/18at 18:11; Start 11/14/18 at 18:30; Stop 11/14/18 at 18:31; Status DC Sodium Chloride 1,000 ml @ 1,000 mls/hr 1X ONCE IV Last administered on 11/14/18at 18:11; Start 11/14/18 at 18:30; Stop 11/14/18 at 19:29; Status DC Vancomycin HCl 1.75 gm/Sodium Chloride 500 ml @ 250 mls/hr 1X ONCE IV Last administered on 11/14/18at 21:00; Start 11/14/18 at 19:00; Stop 11/14/18 at 20:59; Status DC Midazolam HCl 100 ml @ 5 mls/hr CONT PRN IV SEE I/O RECORD Last administered on 11/15/18at 06:05; Start 11/14/18 at 20:30; Stop 11/16/18 at 12:47; Status DC Sodium Chloride 1,000 ml @ 1,000 mls/hr 1X ONCE IV Last administered on 11/14/18at 21:07; Start 11/14/18 at 21:00; Stop 11/14/18 at 21:59; Status DC Methylprednisolone Sodium Succinate (SOLU-Medrol 125MG VIAL) 125 mg Q12HR IV Last administered on 11/19/18at 08:54; Start 11/15/18 at 09:00; Stop 11/19/18 at 10:15; Status DC Albuterol/ Ipratropium (Duoneb) 3 ml Q4HRS NEB ; Start 11/15/18 at 00:00; Status Cancel Sodium Chloride 1,000 ml @ 75 mls/hr [id number] IV Last administered on 11/26/18at 01:00; Start 11/14/18 at 22:00; Stop 11/26/18 at 14:25; Status DC Sodium Chloride 1,000 ml @ 999 mls/hr 1X ONCE IV ; Start 11/14/18 at 20:45; Stop 11/14/18 at 21:45; Status UNV Albuterol/ Ipratropium (Duoneb) 3 ml RTQID NEB ; Start 11/15/18 at 08:00; Stop 11/15/18 at 08:00; Status DC Albuterol Sulfate (Ventolin Neb Soln) 2.5 mg PRN Q4HRS PRN NEB SHORTNESS OF BREATH Last administered on 11/26/18at 20:50; Start 11/14/18 at 20:45 Norepinephrine Bitartrate 250 ml @ 1.875 mls/ hr CONT PRN IV SEE I/O RECORD Last administered on 11/15/18at 02:33; Start 11/14/18 at 22:30; Stop 11/16/18 at 12:47; Status DC Sodium Chloride 1,000 ml @ 999 mls/hr 1X ONCE IV Last administered on 11/14/18at 22:55; Start 11/14/18 at 23:00; Stop 11/15/18 at 00:00; Status DC Albuterol/ Ipratropium (Duoneb) 3 ml Q4HRS NEB Last administered on 11/28/18 08:29; Start 11/15/18 at 00:00 Vancomycin HCl 1 gm/Sodium Chloride 250 ml @ 250 mls/hr Q12H IV Last administered on 11/15/18 09:53; Start 11/15/18 at 09:00; Stop 11/15/18 at 12:00; Status DC Vancomycin HCl (Vancomycin Trough Level) 1 each 1X ONCE MC ; Start 11/16/18 at 20:30; Stop 11/16/18 at 20:31; Status Cancel Fentanyl Citrate 30 ml @ 0 mls/hr CONT PRN IV SEE PROTOCOL Last administered on 11/16/18at 04:50; Start 11/15/18 at 07:45; Stop 11/16/18 at 12:47; Status DC Sodium Chloride 1,000 ml @ 1,000 mls/hr 1X ONCE IV Last administered on 11/15/18 09:54; Start 11/15/18 at 09:15; Stop 11/15/18 at 10:14; Status DC Famotidine (Pepcid Vial) 20 mg BID IVP Last administered on 11/28/18 08:34; Start 11/15/18 at 10:00 Enoxaparin Sodium (Lovenox Per Pharmacy Prophylaxis Dosing) 1 each DAILY MC Last administered on 11/17/18 09:00; Start 11/16/18 at 09:00; Stop 11/21/18 at 13:17; Status DC Enoxaparin Sodium (Lovenox 40mg Syringe) 40 mg Q24H SQ Last administered on 11/28/18 10:47; Start 11/15/18 at 10:00 Vancomycin HCl 1 gm/Sodium Chloride 250 ml @ 250 mls/hr Q18H IV Last administered on 11/16/18 03:01; Start 11/16/18 at 03:00; Stop 11/16/18 at 08:06; Status DC Lorazepam (Ativan Inj) 2 mg PRN Q4HRS PRN IV ANXIETY / AGITATION Last administered on 11/16/18at 15:28; Start 11/15/18 at 12:45; Stop 11/21/18 at 13:17; Status DC Propofol 100 ml @ 0 mls/hr CONT PRN IV SEE PROTOCOL Last administered on 11/16/18at 04:48; Start 11/15/18 at 16:15; Stop 11/16/18 at 12:47; Status DC Flumazenil (Romazicon) 0.1 mg 1X ONCE IV Last administered on 11/16/18at 16:46; Start 11/16/18 at 16:45; Stop 11/16/18 at 16:46; Status DC Flumazenil (Romazicon) 0.1 mg 1X ONCE IV Last administered on 11/16/18at 17:49; Start 11/16/18 at 17:45; Stop 11/16/18 at 17:49; Status DC Propofol 100 ml @ As Directed STK-MED ONCE IV ; Start 11/16/18 at 20:46; Stop 11/16/18 at 20:47; Status DC Propofol 100 ml @ 1.145 mls/ hr CONT PRN IV SEE I/O RECORD Last administered on 11/20/18at 08:17; Start 11/17/18 at 02:30; Stop 11/21/18 at 13:17; Status DC Fentanyl Citrate (Fentanyl 2ml Vial) 50 mcg PRN Q2HR PRN IV PAIN Last administered on 11/17/18at 02:41; Start 11/17/18 at 02:30; Stop 11/21/18 at 13:17; Status DC Fentanyl Citrate 30 ml @ 0 mls/hr CONT PRN IV SEE PROTOCOL Last administered on 11/20/18at 06:39; Start 11/17/18 at 07:15; Stop 11/21/18 at 13:17; Status DC Dextrose (Dextrose 50%-Water Syringe) 12.5 gm PRN Q15MIN PRN IV SEE COMMENTS; Start 11/17/18 at 11:30; Stop 11/21/18 at 13:17; Status DC Propofol (Diprivan) 200 mg STK-MED ONCE IV ; Start 11/16/18 at 12:00; Stop 11/17/18 at 15:00; Status DC Rocuronium [place] (Zemuron) 50 mg STK-MED ONCE .ROUTE ; Start 11/16/18 at 12:00; Stop 11/17/18 at 15:00; Status DC Methylprednisolone Sodium Succinate (SOLU-Medrol 40MG VIAL) 40 mg Q12HR IV Last administered on 11/24/18at 08:48; Start 11/19/18 at 21:00; Stop 11/24/18 at 11:27; Status DC Piperacillin Sod/ Tazobactam Sod 3.375 gm/Sodium Chloride 50 ml @ 100 mls/hr Q6HRS IV Last administered on 11/23/18at 06:09; Start 11/21/18 at 08:00; Stop 11/23/18 at 07:23; Status DC Ondansetron HCl (Zofran) 4 mg PRN Q6HRS PRN IV NAUSEA/VOMITING Last administered on 11/21/18at 07:57; Start 11/21/18 at 08:00 Enoxaparin Sodium (Lovenox 40mg Syringe) 40 mg Q24H SQ ; Start 11/22/18 at 09:00; Status UNV Multivitamins (Thera M Plus) 1 tab DAILY PO ; Start 11/22/18 at 11:30 Prednisone (Prednisone) 30 mg DAILY PO ; Start 11/25/18 at 09:00; Stop 11/25/18 at 09:26; Status DC Aspirin (Children'S Aspirin) 162 mg DAILYWBKFT PO ; Start 11/24/18 at 18:00; Stop 11/27/18 at 07:42; Status DC Methylprednisolone Sodium Succinate (SOLU-Medrol 40MG VIAL) 40 mg DAILY IV Last administered on 11/28/18at 08:33; Start 11/25/18 at 09:30 Gadoterate Meglumine (Dotarem) 16 ml 1X ONCE IVP ; Start 11/25/18 at 11:00; Stop 11/25/18 at 11:01; Status DC Morphine Sulfate (Morphine Sulfate) 2 mg PRN Q1HR PRN IV PAIN Last administered on 11/27/18at 10:41; Start 11/25/18 at 19:45 Lorazepam (Ativan Inj) 2 mg PRN Q2HR PRN IV SEVERE ANXIETY / AGITATION Last administered on 11/27/18at 09:17; Start 11/25/18 at 19:45 Lorazepam (Ativan Inj) 1 mg PRN Q4HRS PRN IV MODERATE ANXIETY / AGITATION Last administered on 11/27/18at 19:58; Start 11/26/18 at 21:30 Amino Acids/ Glycerin/ Electrolytes 1,000 ml @ 75 mls/hr [id number] IV Last administered on 11/28/18at 01:10; Start 11/26/18 at 22:30 Potassium Chloride/Water 100 ml @ 100 mls/hr Q1H IV Last administered on 11/28/18at 10:47; Start 11/28/18 at 09:00; Stop 11/28/18 at 10:59; Status DC Active Scripts Active Guaifenesin Dm Syrup (Guaifenesin/Dextromethorphan) 5 Ml Syrup 10 Ml PO PRN Q6HRS PRN MDD 1 7 Days Reported Prednisone (Prednisone) 10 Mg Tablet 10 Mg PO DAILY Fluoxetine Hcl 20 Mg Capsule 20 Mg PO DAILY Incruse Ellipta (Umeclidinium [place]) 62.5 Mcg Blst.w.dev 62.5 Mcg IH DAILY Breo Ellipta 100-25 Mcg Inh (Fluticasone/Vilanterol) 1 Each Aer.pow.ba 1 Puff IH DAILY Tudorza Pressair (Aclidinium [place]) 400 Mcg Aer.pow.ba 400 Mcg IH DAILY Vitals/I & O Vital Sign - Last 24 Hours 11/27/18 11/27/18 11/27/18 11/27/18 11:50 13:33 15:00 15:03 Temp 98.4 98.0 98.4 98.0 Pulse 83 72 Resp 34 34 B/P (MAP) 130/55 (80) 148/74 (98) Pulse Ox 97 96 98 96 O2 Delivery BiPAP/CPAP BiPAP/CPAP BiPAP/CPAP BiPAP/CPAP 11/27/18 11/27/18 11/27/18 11/27/18 19:35 20:00 20:06 20:24 Temp 98.9 98.9 Pulse 66 Resp 21 B/P (MAP) 155/62 (93) Pulse Ox 98 97 94 O2 Delivery BiPAP/CPAP Bi-pap Aerosol Mask BiPAP/CPAP O2 Flow Rate 5.0 5.0 11/27/18 11/27/18 11/28/18 11/28/18 22:59 23:40 00:45 03:21 Temp 98.0 98.0 Pulse 72 Resp 22 B/P (MAP) 155/72 (99) Pulse Ox 95 99 98 97 O2 Delivery BiPAP/CPAP BiPAP/CPAP BiPAP/CPAP BiPAP/CPAP 11/28/18 11/28/18 11/28/1819 03:40 05:00 07:15 08:30 Temp 98.4 97.8 98.4 97.8 Pulse 68 68 Resp 40 40 B/P (MAP) 135/63 (87) 127/67 (87) Pulse Ox 98 97 97 97 O2 Delivery BiPAP/CPAP BiPAP/CPAP BiPAP/CPAP BiPAP/CPAP 11/28/18 10:50 Temp 98.3 98.3 Pulse 84 Resp 42 B/P (MAP) 115/65 (82) Pulse Ox 93 O2 Delivery Nasal Cannula O2 Flow Rate 3.0 Intake and Output 11/27/18 11/27/18 11/28/18 14:59 22:59 06:59 Intake Total 0 ml 0 ml Output Total 1850 ml Balance 0 ml -1850 ml IKER NASSAR MD Nov 28, 2018 11:45
--- NOTE | 2018-11-28 12:29 | PDOC ---
PROGRESS NOTES Assessment Problems Medical Problems: (1) Acute hypercapnic respiratory failure Status: Acute Anisocoria. Hallucination, visual. 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 Delusion. Confusion. Metabolic encephalopathy. Respiratory failure. COPD, maybe end stage. UTI. CHF. Cognitive impairment. Obesity. Longstanding history of smoking. Plan Patient stayed here overnight, I'll go ahead and order the MRI with and without contrast Family not in the room Note Dr. Woods's documentation of family issues versus patient's preference for comfort care only Subjective Denies pain Objective Vital Signs Date Time Temp Pulse Resp B/P (MAP) Pulse Ox O2 Delivery O2 Flow Rate FiO2 11/28/18 12:03 90 Nasal Cannula 3.0 11/28/18 10:50 98.3 84 42 115/65 (82) 98.3 Intake and Output 11/28/18 07:00 Intake Total 0 ml Output Total 1850 ml Balance -1850 ml Intake Oral 0 ml Output Urine Total 1850 ml PHYSICAL EXAM Alert. Oriented to person, we took the BiPAP mask off, but she is still not communicative and follows only simple commands PERRL. EOMI. CN: Right pupil 1.5 mm, left 2-3 mm. Muscle tone: normal. Muscle strength: moves all extremities DTR: 1+ Plantar reflex: silent Gait: not examined in bed. Sensory exam: no abnormal findings. No cerebellar signs elicited. Review of Relevant I have reviewed the following items heaven (where applicable) has been applied. Labs Laboratory Tests Test 11/26/18 23:10 11/27/18 08:35 Urine Collection Type Unknown Urine Color Yellow Urine Clarity Clear Urine pH 6.5 Urine Specific [place] 1.015 Urine Protein Negative mg/dL (NEG-TRACE) Urine Glucose (UA) Negative mg/dL (NEG) Urine Ketones (Stick) 40 mg/dL (NEG) Urine Blood Large (NEG) Urine Nitrite Negative (NEG) Urine Bilirubin Negative (NEG) Urine Urobilinogen Dipstick 0.2 mg/dL (0.2 mg/dL) Urine Leukocyte Esterase Trace (NEG) Urine RBC Tntc /HPF (0-2) Urine WBC 1-4 /HPF (0-4) Urine Bacteria Few /HPF (0-FEW) Urine Mucus Mod /LPF White Blood Count 12.8 x10^3/uL (4.0-11.0) Red Blood Count 3.63 x10^6/uL (3.50-5.40) Hemoglobin 10.7 g/dL (12.0-15.5) Hematocrit 32.3 % (36.0-47.0) Mean Corpuscular Volume 89 fL (79-100) Mean Corpuscular Hemoglobin 29 pg (25-35) Mean Corpuscular Hemoglobin Concent 33 g/dL (31-37) Red Cell Distribution Width 14.8 % (11.5-14.5) Platelet Count 230 x10^3/uL (140-400) Neutrophils (%) (Auto) 80 % (31-73) Lymphocytes (%) (Auto) 10 % (24-48) Monocytes (%) (Auto) 8 % (0-9) Eosinophils (%) (Auto) 1 % (0-3) Basophils (%) (Auto) 0 % (0-3) Neutrophils # (Auto) 10.3 x10^3/uL (1.8-7.7) Lymphocytes # (Auto) 1.3 x10^3/uL (1.0-4.8) Monocytes # (Auto) 1.1 x10^3/uL (0.0-1.1) Eosinophils # (Auto) 0.1 x10^3/uL (0.0-0.7) Basophils # (Auto) 0.0 x10^3/uL (0.0-0.2) Erythrocyte Sedimentation Rate 3 (0-25) Sodium Level 144 mmol/L (136-145) Potassium Level 3.4 mmol/L (3.5-5.1) Chloride Level 100 mmol/L (98-107) Carbon Dioxide Level 38 mmol/L (21-32) Anion Gap 6 (6-14) Blood Urea Nitrogen 12 mg/dL (7-20) Creatinine 0.4 mg/dL (0.6-1.0) Estimated GFR (Cockcroft-Gault) 160.7 Glucose Level 85 mg/dL (70-99) Calcium Level 8.7 mg/dL (8.5-10.1) Microbiology 11/14/18 Blood Culture - Final, Complete NO GROWTH AFTER 5 DAYS 11/14/18 Urine Culture - Final, Complete 11/14/18 Urine Culture Result 1 (KRISTA) - Final, Complete Medications Current Medications Methylprednisolone Sodium Succinate (SOLU-Medrol 125MG VIAL) 125 mg 1X ONCE IV Last administered on 11/14/18at 17:14; Start 11/14/18 at 16:45; Stop 11/14/18 at 16:46; Status DC Albuterol/ Ipratropium (Duoneb) 3 ml 1X ONCE NEB Last administered on 11/14/18at 17:04; Start 11/14/18 at 16:45; Stop 11/14/18 at 16:46; Status DC Ondansetron HCl (Zofran) 4 mg 1X ONCE IV Last administered on 11/14/18at 17:13; Start 11/14/18 at 17:00; Stop 11/14/18 at 17:01; Status DC Propofol 0 ml @ As Directed STK-MED ONCE IV ; Start 11/14/18 at 18:09; Stop 11/14/18 at 18:10; Status DC Etomidate (Amidate) 20 mg STK-MED ONCE IV ; Start 11/14/18 at 18:17; Stop 11/14/18 at 18:18; Status DC Rocuronium [place] (Zemuron) 50 mg STK-MED ONCE .ROUTE ; Start 11/14/18 at 18:17; Stop 11/14/18 at 18:18; Status DC Propofol 100 ml @ 0 mls/hr CONT PRN IV SEE PROTOCOL Last administered on 11/14/18at 18:00; Start 11/14/18 at 18:30; Stop 11/15/18 at 07:38; Status DC Chlorhexidine Gluconate (Peridex) 15 ml BID MM ; Start 11/14/18 at 21:00; Stop 11/15/18 at 16:12; Status DC Midazolam HCl 100 ml @ 0 mls/hr CONT PRN IV SEE PROTOCOL; Start 11/14/18 at 18:30; Stop 11/14/18 at 20:14; Status DC Cefepime HCl (Maxipime) 2 gm Q12HR IVP Last administered on 11/20/18at 20:52; Start 11/14/18 at 18:27; Stop 11/21/18 at 07:30; Status DC Azithromycin 250 ml @ 250 mls/hr 1X ONCE IV Last administered on 11/14/18at 22:56; Start 11/14/18 at 18:30; Stop 11/14/18 at 19:29; Status DC Vancomycin HCl (Vanco Per Pharmacy) 1 each PRN DAILY PRN MC SEE COMMENTS Last administered on 11/15/18at 10:17; Start 11/14/18 at 18:30; Stop 11/16/18 at 08:07; Status DC Propofol 50 ml @ 0 mls/hr 1X ONCE IV ; Start 11/14/18 at 18:30; Stop 11/14/18 at 18:31; Status DC Etomidate (Amidate) 20 mg 1X ONCE IV Last administered on 11/14/18at 18:11; Start 11/14/18 at 18:30; Stop 11/14/18 at 18:31; Status DC Rocuronium [place] (Zemuron) 50 mg 1X ONCE IV Last administered on 11/14/18at 18:11; Start 11/14/18 at 18:30; Stop 11/14/18 at 18:31; Status DC Sodium Chloride 1,000 ml @ 1,000 mls/hr 1X ONCE IV Last administered on 11/14/18at 18:11; Start 11/14/18 at 18:30; Stop 11/14/18 at 19:29; Status DC Vancomycin HCl 1.75 gm/Sodium Chloride 500 ml @ 250 mls/hr 1X ONCE IV Last administered on 11/14/18at 21:00; Start 11/14/18 at 19:00; Stop 11/14/18 at 20:59; Status DC Midazolam HCl 100 ml @ 5 mls/hr CONT PRN IV SEE I/O RECORD Last administered on 11/15/18at 06:05; Start 11/14/18 at 20:30; Stop 11/16/18 at 12:47; Status DC Sodium Chloride 1,000 ml @ 1,000 mls/hr 1X ONCE IV Last administered on 11/14/18at 21:07; Start 11/14/18 at 21:00; Stop 11/14/18 at 21:59; Status DC Methylprednisolone Sodium Succinate (SOLU-Medrol 125MG VIAL) 125 mg Q12HR IV Last administered on 11/19/18at 08:54; Start 11/15/18 at 09:00; Stop 11/19/18 at 10:15; Status DC Albuterol/ Ipratropium (Duoneb) 3 ml Q4HRS NEB ; Start 11/15/18 at 00:00; Status Cancel Sodium Chloride 1,000 ml @ 75 mls/hr [id number] IV Last administered on 11/26/18at 01:00; Start 11/14/18 at 22:00; Stop 11/26/18 at 14:25; Status DC Sodium Chloride 1,000 ml @ 999 mls/hr 1X ONCE IV ; Start 11/14/18 at 20:45; Stop 11/14/18 at 21:45; Status UNV Albuterol/ Ipratropium (Duoneb) 3 ml RTQID NEB ; Start 11/15/18 at 08:00; Stop 11/15/18 at 08:00; Status DC Albuterol Sulfate (Ventolin Neb Soln) 2.5 mg PRN Q4HRS PRN NEB SHORTNESS OF BREATH Last administered on 11/26/18at 20:50; Start 11/14/18 at 20:45 Norepinephrine Bitartrate 250 ml @ 1.875 mls/ hr CONT PRN IV SEE I/O RECORD Last administered on 11/15/18at 02:33; Start 11/14/18 at 22:30; Stop 11/16/18 at 12:47; Status DC Sodium Chloride 1,000 ml @ 999 mls/hr 1X ONCE IV Last administered on 11/14/18at 22:55; Start 11/14/18 at 23:00; Stop 11/15/18 at 00:00; Status DC Albuterol/ Ipratropium (Duoneb) 3 ml Q4HRS NEB Last administered on 11/28/18at 12:03; Start 11/15/18 at 00:00 Vancomycin HCl 1 gm/Sodium Chloride 250 ml @ 250 mls/hr Q12H IV Last administered on 11/15/18at 09:53; Start 11/15/18 at 09:00; Stop 11/15/18 at 12:00; Status DC Vancomycin HCl (Vancomycin Trough Level) 1 each 1X ONCE MC ; Start 11/16/18 at 20:30; Stop 11/16/18 at 20:31; Status Cancel Fentanyl Citrate 30 ml @ 0 mls/hr CONT PRN IV SEE PROTOCOL Last administered on 11/16/18at 04:50; Start 11/15/18 at 07:45; Stop 11/16/18 at 12:47; Status DC Sodium Chloride 1,000 ml @ 1,000 mls/hr 1X ONCE IV Last administered on 11/15/18at 09:54; Start 11/15/18 at 09:15; Stop 11/15/18 at 10:14; Status DC Famotidine (Pepcid Vial) 20 mg BID IVP Last administered on 11/28/18at 08:34; Start 11/15/18 at 10:00 Enoxaparin Sodium (Lovenox Per Pharmacy Prophylaxis Dosing) 1 each DAILY MC Last administered on 11/17/18at 09:00; Start 11/16/18 at 09:00; Stop 11/21/18 at 13:17; Status DC Enoxaparin Sodium (Lovenox 40mg Syringe) 40 mg Q24H SQ Last administered on 11/28/18at 10:47; Start 11/15/18 at 10:00 Vancomycin HCl 1 gm/Sodium Chloride 250 ml @ 250 mls/hr Q18H IV Last administered on 11/16/18at 03:01; Start 11/16/18 at 03:00; Stop 11/16/18 at 08:06; Status DC Lorazepam (Ativan Inj) 2 mg PRN Q4HRS PRN IV ANXIETY / AGITATION Last administered on 11/16/18at 15:28; Start 11/15/18 at 12:45; Stop 11/21/18 at 13:17; Status DC Propofol 100 ml @ 0 mls/hr CONT PRN IV SEE PROTOCOL Last administered on 11/16/18at 04:48; Start 11/15/18 at 16:15; Stop 11/16/18 at 12:47; Status DC Flumazenil (Romazicon) 0.1 mg 1X ONCE IV Last administered on 11/16/18at 16:46; Start 11/16/18 at 16:45; Stop 11/16/18 at 16:46; Status DC Flumazenil (Romazicon) 0.1 mg 1X ONCE IV Last administered on 11/16/18at 17:49; Start 11/16/18 at 17:45; Stop 11/16/18 at 17:49; Status DC Propofol 100 ml @ As Directed STK-MED ONCE IV ; Start 11/16/18 at 20:46; Stop 11/16/18 at 20:47; Status DC Propofol 100 ml @ 1.145 mls/ hr CONT PRN IV SEE I/O RECORD Last administered on 11/20/18at 08:17; Start 11/17/18 at 02:30; Stop 11/21/18 at 13:17; Status DC Fentanyl Citrate (Fentanyl 2ml Vial) 50 mcg PRN Q2HR PRN IV PAIN Last administered on 11/17/18at 02:41; Start 11/17/18 at 02:30; Stop 11/21/18 at 13:17; Status DC Fentanyl Citrate 30 ml @ 0 mls/hr CONT PRN IV SEE PROTOCOL Last administered on 11/20/18at 06:39; Start 11/17/18 at 07:15; Stop 11/21/18 at 13:17; Status DC Dextrose (Dextrose 50%-Water Syringe) 12.5 gm PRN Q15MIN PRN IV SEE COMMENTS; Start 11/17/18 at 11:30; Stop 11/21/18 at 13:17; Status DC Propofol (Diprivan) 200 mg STK-MED ONCE IV ; Start 11/16/18 at 12:00; Stop at 15:00; Status DC Rocuronium [place] (Zemuron) 50 mg STK-MED ONCE .ROUTE ; Start 11/16/18 at 12:00; Stop 11/17/18 at 15:00; Status DC Methylprednisolone Sodium Succinate (SOLU-Medrol 40MG VIAL) 40 mg Q12HR IV Last administered on 11/24/18at 08:48; Start 11/19/18 at 21:00; Stop 11/24/18 at 11:27; Status DC Piperacillin Sod/ Tazobactam Sod 3.375 gm/Sodium Chloride 50 ml @ 100 mls/hr Q6HRS IV Last administered on 11/23/18at 06:09; Start 11/21/18 at 08:00; Stop 11/23/18 at 07:23; Status DC Ondansetron HCl (Zofran) 4 mg PRN Q6HRS PRN IV NAUSEA/VOMITING Last administered on 11/21/18at 07:57; Start 11/21/18 at 08:00 Enoxaparin Sodium (Lovenox 40mg Syringe) 40 mg Q24H SQ ; Start 11/22/18 at 09:00; Status UNV Multivitamins (Thera M Plus) 1 tab DAILY PO ; Start 11/22/18 at 11:30 Prednisone (Prednisone) 30 mg DAILY PO ; Start 11/25/18 at 09:00; Stop 11/25/18 at 09:26; Status DC Aspirin (Children'S Aspirin) 162 mg DAILYWBKFT PO ; Start 11/24/18 at 18:00; Stop 11/27/18 at 07:42; Status DC Methylprednisolone Sodium Succinate (SOLU-Medrol 40MG VIAL) 40 mg DAILY IV Last administered on 11/28/18at 08:33; Start 11/25/18 at 09:30 Gadoterate Meglumine (Dotarem) 16 ml 1X ONCE IVP ; Start 11/25/18 at 11:00; Stop 11/25/18 at 11:01; Status DC Morphine Sulfate (Morphine Sulfate) 2 mg PRN Q1HR PRN IV PAIN Last administered on 11/27/18at 10:41; Start 11/25/18 at 19:45 Lorazepam (Ativan Inj) 2 mg PRN Q2HR PRN IV SEVERE ANXIETY / AGITATION Last administered on 11/27/18at 09:17; Start 11/25/18 at 19:45 Lorazepam (Ativan Inj) 1 mg PRN Q4HRS PRN IV MODERATE ANXIETY / AGITATION Last administered on 11/27/18at 19:58; Start 11/26/18 at 21:30 Amino Acids/ Glycerin/ Electrolytes 1,000 ml @ 75 mls/hr [id number] IV Last administered on 11/28/18at 01:10; Start 11/26/18 at 22:30 Potassium Chloride/Water 100 ml @ 100 mls/hr Q1H IV Last administered on 11/28/18at 10:47; Start 11/28/18 at 09:00; Stop 11/28/18 at 10:59; Status DC Active Scripts Active Guaifenesin Dm Syrup (Guaifenesin/Dextromethorphan) 5 Ml Syrup 10 Ml PO PRN Q6HRS PRN MDD 1 7 Days Reported Prednisone (Prednisone) 10 Mg Tablet 10 Mg PO DAILY Fluoxetine Hcl 20 Mg Capsule 20 Mg PO DAILY Incruse Ellipta (Umeclidinium [place]) 62.5 Mcg Blst.w.dev 62.5 Mcg IH DAILY Breo Ellipta 100-25 Mcg Inh (Fluticasone/Vilanterol) 1 Each Aer.pow.ba 1 Puff IH DAILY Tudorza Pressair (Aclidinium [place]) 400 Mcg Aer.pow.ba 400 Mcg IH DAILY Vitals/I & O Vital Sign - Last 24 Hours 11/27/18 11/27/18 11/27/18 11/27/18 13:33 15:00 15:03 19:35 Temp 98.0 98.9 98.0 98.9 Pulse 72 66 Resp 34 21 B/P (MAP) 148/74 (98) 155/62 (93) Pulse Ox 96 98 96 98 O2 Delivery BiPAP/CPAP BiPAP/CPAP BiPAP/CPAP BiPAP/CPAP 11/27/18 11/27/18 11/27/18 11/27/18 20:00 20:06 20:24 22:59 Pulse Ox 97 94 95 O2 Delivery Bi-pap Aerosol Mask BiPAP/CPAP BiPAP/CPAP O2 Flow Rate 5.0 5.0 11/27/18 11/28/18 11/28/18 11/28/18 23:40 00:45 03:21 03:40 Temp 98.0 98.4 98.0 98.4 Pulse 72 68 Resp 22 40 B/P (MAP) 155/72 (99) 135/63 (87) Pulse Ox 99 98 97 98 O2 Delivery BiPAP/CPAP BiPAP/CPAP BiPAP/CPAP BiPAP/CPAP 11/28/18 11/28/18 11/28/18 11/28/18 05:00 07:15 08:30 10:50 Temp 97.8 98.3 97.8 98.3 Pulse 68 84 Resp 40 42 B/P (MAP) 127/67 (87) 115/65 (82) Pulse Ox 97 97 97 93 O2 Delivery BiPAP/CPAP BiPAP/CPAP BiPAP/CPAP Nasal Cannula O2 Flow Rate 3.0 11/28/18 12:03 Pulse Ox 90 O2 Delivery Nasal Cannula O2 Flow Rate 3.0 Intake and Output 11/27/18 11/27/18 11/28/18 15:00 23:00 07:00 Intake Total 0 ml 0 ml Output Total 1850 ml Balance 0 ml -1850 ml AUREA MIKE MD Nov 28, 2018 12:29
--- NOTE | 2018-11-28 12:44 | NUR ---
SS following up with discharge planning. Pt denied for [facility] transfer. SS met with pt and pt's family in room and discussed denial for inpatient transfer and also discussed LTAC. Pt's family agreeable to referral to LTAC but stated that they did not want referral sent to [facility]. They requested referral be phoned and faxed to [facility], ; fax [phone]. SS phoned and faxed referral to [facility]. SS spoke with Trisha at [facility]. Eunice from [facility] to come speak with family. Pt's family also requesting new swallow study. Dr. Woods notified.
--- NOTE | 2018-11-28 12:45 | PDOC ---
Provider Note Provider Note Addendum to my earlier note: I spoke with the daughter - updated her of my earlier interaction with pt alone today I told her that upon speaking with the patient alone with the nurse as my witness - patient wanted to go home, be comfort care and hospice Dtr Initially denied this saying her mother wanted active medical treatment. I did verify with the daughter that I had a witness as the nurse at bedside and I asked her mother multiple times, not just once of her wishes. DTr then replied she did not like the idea thatt I ask her mother without family at bedside I did then replied that was the whole purpose of me asking her mother alone of her own wishes,. without the influence or pressure from family Daughter is now aware of what the patient wishes and still wants to do LTAC, Full treatment short of intubation, wants aggressive care Updated social work and pulmo THis case needs ETHICS committee involvement IKER NASSAR MD Nov 28, 2018 12:45
--- NOTE | 2018-11-28 13:43 | NUR ---
Called ethics hotline at extension [phone] regarding getting a ethics committee review for patient. No answer at this time. Voicemail left with call back number.
[2018-11-28] MEDS ORDERED: GADOTERATE 7.5 MMOL/15ML VIAL. IVP ONE (13:45)
[2018-11-28 15:05] VITALS: BP 142/68
--- NOTE | 2018-11-28 15:07 | RAD ---
BRAIN WO/W CONTRAST Date: 11/28/2018 12:16 PM Indication: Abnormal MRI Comparison: 11/24/2018. Technique: Multiplanar multisequence MRI of the brain was performed with and without intravenous contrast using the standard protocol. 15 cc Dotarem contrast was administered intravenously during the exam. Findings: Increase in abnormal T2/FLAIR hyperintense signal in the lateral region as well as the franny, brachium pontii, and left greater than right cerebellum. New small area of DWI hyperintensity in the left cerebellum with subtle ill-defined postcontrast enhancement. No acute infarct. No acute or chronic hemorrhage. The ventricles are normal in size and configuration without hydrocephalus. Minimal scattered FLAIR hyperintensities in the subcortical and periventricular deep white matter, a nonspecific finding, appropriate for patient age. Mild generalized cerebral and cerebellar volume loss. The scalp and calvarium are normal. The pituitary and sella are normal. No Chiari malformation. The visualized upper cervical spine is normal. The visualized orbits and globes are normal. Right maxillary sinus disease. The mastoid air cells are clear. Normal flow voids within the vertebral, basilar, and internal carotid arteries indicating patency. IMPRESSION: Increasing abnormal T2/FLAIR hyperintense signal involving the posterior cerebrum, brainstem, and left greater than right cerebellum. Given the imaging features and behavior, PRES is now the most likely consideration. No acute hemorrhage. Electronically signed by: Demetrio Milligan MD (11/28/2018 3:03 PM) [id number]
[2018-11-28 19:25] VITALS: BP 128/58
--- NOTE | 2018-11-28 21:17 | PN ---
DATE: I had a lengthy discussion with the patient's daughter Kylie. I had explained to her about her severity for COPD and periods of air hunger and intermittent dyspnea. At this time, she is receiving p.r.n. morphine and p.r.n. Ativan, in addition she has also been intermittently on BiPAP. Kylie understands the severity of her lung condition. She had some concerns about her mother not getting adequate treatment while in the hospital. I had discussed in detail and I had assured her that we will make sure that her mother gets supportive care and also at the same time, we continue to treat her for air hunger. I have also mentioned about the MRI brain results. At this point, it would be irrelevant to pursue any further due to the severity of her lung disease. She understands that. She also at this point wants to still transfer her to [facility]. I did explain to her that I will pass this on to her PCP who will be happy to arrange if there is an accepting physician. There is no medical need for transfer. d/w Dr Woods. Pt had herself told her about not wanting aggressive care but rather be kept comfortable. XENA MCGRAW MD DR: BARON/amrik JOB#: [id number] / [id number] KIRK
[2018-11-28 23:25] VITALS: BP 128/74
[2018-11-29 03:25] VITALS: BP 122/73
[2018-11-29] MEDS: AMINO AC 3%/ELECTROLYTE/GLYCER 1,000 ML IV SCH ×3 (03:50→23:48)
[2018-11-29] MEDS: IPRATRPIUM/ALBUTEROL 0.5/2.5MG 3 ML NEBU. NEB SCH ×6 (03:59→23:23)
[2018-11-29 07:40] VITALS: BP 125/75
[2018-11-29] MEDS: MULTIVITAMIN with MINERAL TABLET. PO SCH (08:15)
[2018-11-29] MEDS: methylPREDNISolone SOD SUCC PF 40 MG/ML VIAL. IV SCH (09:12)
[2018-11-29] MEDS: FAMOTIDINE 20 MG/2 ML VIAL IVP SCH ×2 (09:12→20:04)
[2018-11-29] MEDS: ENOXAPARIN 40 MG/0.4 ML SYRINGE. SQ SCH (09:12)
--- NOTE | 2018-11-29 10:20 | PDOC ---
PROGRESS NOTES Assessment Problems Medical Problems: (1) Acute hypercapnic respiratory failure Status: Acute Posterior reversible encephalopathy syndrome (PRES), much better Anisocoria. Hallucination, visual. No brain metastatic disease Plan Patient is competent to make her health care decisions. Continue current medical management. I discussed with daughter Cora, , by phone. In particular I stated that the patient is competent to make her healthcare decisions and we need to honor her wishes if she does not wish to pursue more aggressive care and instead perhaps go home with hospice care. Cora voiced her understanding and implied that the other sister is the one maybe opposed to these criteria Subjective Feels better Objective Vital Signs Date Time Temp Pulse Resp B/P (MAP) Pulse Ox O2 Delivery O2 Flow Rate FiO2 11/29/18 07:40 97.6 68 44 125/75 (92) 99 Venturi Mask 97.6 11/29/18 07:28 12.0 Intake and Output 11/29/18 06:59 Intake Total 0 ml Output Total 2475 ml Balance -2475 ml Intake Oral 0 ml Output Urine Total 2475 ml PHYSICAL EXAM Alert. Oriented to time place, person, follows commands PERRL. EOMI. CN: Right pupil 1.5 mm, left 2-3 mm. Muscle tone: normal. Muscle strength: 4/5 DTR: 1+ Plantar reflex: silent Gait: not examined in bed. Sensory exam: no abnormal findings. No cerebellar signs elicited. Review of Relevant I have reviewed the following items heaven (where applicable) has been applied. Labs Microbiology 11/14/18 Blood Culture - Final, Complete NO GROWTH AFTER 5 DAYS 11/14/18 Urine Culture - Final, Complete 11/14/18 Urine Culture Result 1 (KRISTA) - Final, Complete Medications Current Medications Methylprednisolone Sodium Succinate (SOLU-Medrol 125MG VIAL) 125 mg 1X ONCE IV Last administered on 11/14/18at 17:14; Start 11/14/18 at 16:45; Stop 11/14/18 at 16:46; Status DC Albuterol/ Ipratropium (Duoneb) 3 ml 1X ONCE NEB Last administered on 11/14/18at 17:04; Start 11/14/18 at 16:45; Stop 11/14/18 at 16:46; Status DC Ondansetron HCl (Zofran) 4 mg 1X ONCE IV Last administered on 11/14/18at 17:13; Start 11/14/18 at 17:00; Stop 11/14/18 at 17:01; Status DC Propofol 0 ml @ As Directed STK-MED ONCE IV ; Start 11/14/18 at 18:09; Stop 11/14/18 at 18:10; Status DC Etomidate (Amidate) 20 mg STK-MED ONCE IV ; Start 11/14/18 at 18:17; Stop 11/14/18 at 18:18; Status DC Rocuronium [place] (Zemuron) 50 mg STK-MED ONCE .ROUTE ; Start 11/14/18 at 18:17; Stop 11/14/18 at 18:18; Status DC Propofol 100 ml @ 0 mls/hr CONT PRN IV SEE PROTOCOL Last administered on 11/14/18at 18:00; Start 11/14/18 at 18:30; Stop 11/15/18 at 07:38; Status DC Chlorhexidine Gluconate (Peridex) 15 ml BID MM ; Start 11/14/18 at 21:00; Stop 11/15/18 at 16:12; Status DC Midazolam HCl 100 ml @ 0 mls/hr CONT PRN IV SEE PROTOCOL; Start 11/14/18 at 18:30; Stop 11/14/18 at 20:14; Status DC Cefepime HCl (Maxipime) 2 gm Q12HR IVP Last administered on 11/20/18at 20:52; Start 11/14/18 at 18:27; Stop 11/21/18 at 07:30; Status DC Azithromycin 250 ml @ 250 mls/hr 1X ONCE IV Last administered on 11/14/18at 22:56; Start 11/14/18 at 18:30; Stop 11/14/18 at 19:29; Status DC Vancomycin HCl (Vanco Per Pharmacy) 1 each PRN DAILY PRN MC SEE COMMENTS Last administered on 11/15/18at 10:17; Start 11/14/18 at 18:30; Stop 11/16/18 at 08:07; Status DC Propofol 50 ml @ 0 mls/hr 1X ONCE IV ; Start 11/14/18 at 18:30; Stop 11/14/18 at 18:31; Status DC Etomidate (Amidate) 20 mg 1X ONCE IV Last administered on 11/14/18at 18:11; Start 11/14/18 at 18:30; Stop 11/14/18 at 18:31; Status DC Rocuronium [place] (Zemuron) 50 mg 1X ONCE IV Last administered on 11/14/18at 18:11; Start 11/14/18 at 18:30; Stop 11/14/18 at 18:31; Status DC Sodium Chloride 1,000 ml @ 1,000 mls/hr 1X ONCE IV Last administered on 11/14/18at 18:11; Start 11/14/18 at 18:30; Stop 11/14/18 at 19:29; Status DC Vancomycin HCl 1.75 gm/Sodium Chloride 500 ml @ 250 mls/hr 1X ONCE IV Last administered on 11/14/18at 21:00; Start 11/14/18 at 19:00; Stop 11/14/18 at 20:59; Status DC Midazolam HCl 100 ml @ 5 mls/hr CONT PRN IV SEE I/O RECORD Last administered on 11/15/18at 06:05; Start 11/14/18 at 20:30; Stop 11/16/18 at 12:47; Status DC Sodium Chloride 1,000 ml @ 1,000 mls/hr 1X ONCE IV Last administered on 11/14/18at 21:07; Start 11/14/18 at 21:00; Stop 11/14/18 at 21:59; Status DC Methylprednisolone Sodium Succinate (SOLU-Medrol 125MG VIAL) 125 mg Q12HR IV Last administered on 11/19/18at 08:54; Start 11/15/18 at 09:00; Stop 11/19/18 at 10:15; Status DC Albuterol/ Ipratropium (Duoneb) 3 ml Q4HRS NEB ; Start 11/15/18 at 00:00; Status Cancel Sodium Chloride 1,000 ml @ 75 mls/hr [id number] IV Last administered on 11/26/18at 01:00; Start 11/14/18 at 22:00; Stop 11/26/18 at 14:25; Status DC Sodium Chloride 1,000 ml @ 999 mls/hr 1X ONCE IV ; Start 11/14/18 at 20:45; Stop 11/14/18 at 21:45; Status UNV Albuterol/ Ipratropium (Duoneb) 3 ml RTQID NEB ; Start 11/15/18 at 08:00; Stop 11/15/18 at 08:00; Status DC Albuterol Sulfate (Ventolin Neb Soln) 2.5 mg PRN Q4HRS PRN NEB SHORTNESS OF BREATH Last administered on 11/26/18at 20:50; Start 11/14/18 at 20:45 Norepinephrine Bitartrate 250 ml @ 1.875 mls/ hr CONT PRN IV SEE I/O RECORD Last administered on 11/15/18at 02:33; Start 11/14/18 at 22:30; Stop 11/16/18 at 12:47; Status DC Sodium Chloride 1,000 ml @ 999 mls/hr 1X ONCE IV Last administered on 11/14/18at 22:55; Start 11/14/18 at 23:00; Stop 11/15/18 at 00:00; Status DC Albuterol/ Ipratropium (Duoneb) 3 ml Q4HRS NEB Last administered on 11/29/18at 07:26; Start 11/15/18 at 00:00 Vancomycin HCl 1 gm/Sodium Chloride 250 ml @ 250 mls/hr Q12H IV Last administered on 11/15/18at 09:53; Start 11/15/18 at 09:00; Stop 11/15/18 at 12:00; Status DC Vancomycin HCl (Vancomycin Trough Level) 1 each 1X ONCE MC ; Start 11/16/18 at 20:30; Stop 11/16/18 at 20:31; Status Cancel Fentanyl Citrate 30 ml @ 0 mls/hr CONT PRN IV SEE PROTOCOL Last administered on 11/16/18at 04:50; Start 11/15/18 at 07:45; Stop 11/16/18 at 12:47; Status DC Sodium Chloride 1,000 ml @ 1,000 mls/hr 1X ONCE IV Last administered on 11/15/18at 09:54; Start 11/15/18 at 09:15; Stop 11/15/18 at 10:14; Status DC Famotidine (Pepcid Vial) 20 mg BID IVP Last administered on 11/29/18at 09:12; Start 11/15/18 at 10:00 Enoxaparin Sodium (Lovenox Per Pharmacy Prophylaxis Dosing) 1 each DAILY MC Last administered on 7/12/19at 09:00; Start 11/16/18 at 09:00; Stop 11/21/18 at 13:17; Status DC Enoxaparin Sodium (Lovenox 40mg Syringe) 40 mg Q24H SQ Last administered on 11/29/18at 09:12; Start 11/15/18 at 10:00 Vancomycin HCl 1 gm/Sodium Chloride 250 ml @ 250 mls/hr Q18H IV Last administered on 11/16/18at 03:01; Start 11/16/18 at 03:00; Stop 11/16/18 at 08:06; Status DC Lorazepam (Ativan Inj) 2 mg PRN Q4HRS PRN IV ANXIETY / AGITATION Last administered on 11/16/18at 15:28; Start 11/15/18 at 12:45; Stop 11/21/18 at 13:17; Status DC Propofol 100 ml @ 0 mls/hr CONT PRN IV SEE PROTOCOL Last administered on 11/16/18at 04:48; Start 11/15/18 at 16:15; Stop 11/16/18 at 12:47; Status DC Flumazenil (Romazicon) 0.1 mg 1X ONCE IV Last administered on 11/16/18at 16:46; Start 11/16/18 at 16:45; Stop 11/16/18 at 16:46; Status DC Flumazenil (Romazicon) 0.1 mg 1X ONCE IV Last administered on 11/16/18at 17:49; Start 11/16/18 at 17:45; Stop 11/16/18 at 17:49; Status DC Propofol 100 ml @ As Directed STK-MED ONCE IV ; Start 11/16/18 at 20:46; Stop 11/16/18 at 20:47; Status DC Propofol 100 ml @ 1.145 mls/ hr CONT PRN IV SEE I/O RECORD Last administered on 11/20/18at 08:17; Start 11/17/18 at 02:30; Stop 11/21/18 at 13:17; Status DC Fentanyl Citrate (Fentanyl 2ml Vial) 50 mcg PRN Q2HR PRN IV PAIN Last administered on 11/17/18at 02:41; Start 11/17/18 at 02:30; Stop 11/21/18 at 13:17; Status DC Fentanyl Citrate 30 ml @ 0 mls/hr CONT PRN IV SEE PROTOCOL Last administered on 11/20/18at 06:39; Start 11/17/18 at 07:15; Stop 11/21/18 at 13:17; Status DC Dextrose (Dextrose 50%-Water Syringe) 12.5 gm PRN Q15MIN PRN IV SEE COMMENTS; Start 11/17/18 at 11:30; Stop 11/21/18 at 13:17; Status DC Propofol (Diprivan) 200 mg STK-MED ONCE IV ; Start 11/16/18 at 12:00; Stop 11/17/18 at 15:00; Status DC Rocuronium [place] (Zemuron) 50 mg STK-MED ONCE .ROUTE ; Start 11/16/18 at 12:00; Stop 11/17/18 at 15:00; Status DC Methylprednisolone Sodium Succinate (SOLU-Medrol 40MG VIAL) 40 mg Q12HR IV Last administered on 11/24/18at 08:48; Start 11/19/18 at 21:00; Stop 11/24/18 at 11:27; Status DC Piperacillin Sod/ Tazobactam Sod 3.375 gm/Sodium Chloride 50 ml @ 100 mls/hr Q6HRS IV Last administered on 11/23/18at 06:09; Start 11/21/18 at 08:00; Stop 11/23/18 at 07:23; Status DC Ondansetron HCl (Zofran) 4 mg PRN Q6HRS PRN IV NAUSEA/VOMITING Last administered on 11/21/18at 07:57; Start 11/21/18 at 08:00 Enoxaparin Sodium (Lovenox 40mg Syringe) 40 mg Q24H SQ ; Start 11/22/18 at 09:00; Status UNV Multivitamins (Thera M Plus) 1 tab DAILY PO ; Start 11/22/18 at 11:30 Prednisone (Prednisone) 30 mg DAILY PO ; Start 11/25/18 at 09:00; Stop 11/25/18 at 09:26; Status DC Aspirin (Children'S Aspirin) 162 mg DAILYWBKFT PO ; Start 11/24/18 at 18:00; Stop 11/27/18 at 07:42; Status DC Methylprednisolone Sodium Succinate (SOLU-Medrol 40MG VIAL) 40 mg DAILY IV Last administered on 11/29/18 09:12; Start 11/25/18 at 09:30 Gadoterate Meglumine (Dotarem) 16 ml 1X ONCE IVP Last administered on 11/25/18at 11:00; Start 11/25/18 at 11:00; Stop 11/25/18 at 11:01; Status DC Morphine Sulfate (Morphine Sulfate) 2 mg PRN Q1HR PRN IV PAIN Last administered on 11/27/18 10:41; Start 11/25/18 at 19:45 Lorazepam (Ativan Inj) 2 mg PRN Q2HR PRN IV SEVERE ANXIETY / AGITATION Last administered on 11/27/18 09:17; Start 11/25/18 at 19:45 Lorazepam (Ativan Inj) 1 mg PRN Q4HRS PRN IV MODERATE ANXIETY / AGITATION Last administered on 11/27/18at 19:58; Start 11/26/18 at 21:30 Amino Acids/ Glycerin/ Electrolytes 1,000 ml @ 75 mls/hr [id number] IV Last administered on 11/29/18at 10:09; Start 11/26/18 at 22:30 Potassium Chloride/Water 100 ml @ 100 mls/hr Q1H IV Last administered on 11/28/18at 13:06; Start 11/28/18 at 09:00; Stop 11/28/18 at 10:59; Status DC Gadoterate Meglumine (Dotarem) 15.2 ml 1X ONCE IVP ; Start 11/28/18 at 13:45; Stop 11/28/18 at 13:46; Status DC Active Scripts Active Guaifenesin Dm Syrup (Guaifenesin/Dextromethorphan) 5 Ml Syrup 10 Ml PO PRN Q6HRS PRN MDD 1 7 Days Reported Prednisone (Prednisone) 10 Mg Tablet 10 Mg PO DAILY Fluoxetine Hcl 20 Mg Capsule 20 Mg PO DAILY Incruse Ellipta (Umeclidinium [place]) 62.5 Mcg Blst.w.dev 62.5 Mcg IH DAILY Breo Ellipta 100-25 Mcg Inh (Fluticasone/Vilanterol) 1 Each Aer.pow.ba 1 Puff IH DAILY Tudorza Pressair (Aclidinium [place]) 400 Mcg Aer.pow.ba 400 Mcg IH DAILY Vitals/I & O Vital Sign - Last 24 Hours 11/28/18 11/28/18 11/28/18 11/28/18 10:50 12:03 15:05 15:52 Temp 98.3 98.6 98.3 98.6 Pulse 84 71 Resp 42 26 B/P (MAP) 115/65 (82) 142/68 (92) Pulse Ox 93 90 96 96 O2 Delivery Nasal Cannula Nasal Cannula Nasal Cannula Venturi Mask O2 Flow Rate 3.0 3.0 3.0 12.0 11/28/18 11/28/18 11/28/18 11/28/18 19:25 19:40 20:00 21:29 Temp 98.4 98.4 Pulse 71 Resp 18 B/P (MAP) 128/58 (81) Pulse Ox 96 95 O2 Delivery Venturi Mask Venturi Mask Bi-pap BiPAP/CPAP O2 Flow Rate 12.0 12.0 11/28/18 11/28/18 11/29/18 11/29/18 23:19 23:25 01:33 03:25 Temp 98.1 98.0 98.1 98.0 Pulse 61 68 Resp 18 44 B/P (MAP) 128/74 (92) 122/73 (89) Pulse Ox 97 96 96 O2 Delivery BiPAP/CPAP BiPAP/CPAP BiPAP/CPAP BiPAP/CPAP 11/29/18 11/29/18 11/29/18 03:40 07:28 07:40 Temp 97.6 97.6 Pulse 68 Resp 44 B/P (MAP) 125/75 (92) Pulse Ox 97 99 O2 Delivery BiPAP/CPAP Venturi Mask Venturi Mask O2 Flow Rate 12.0 Intake and Output 11/28/18 11/28/18 11/29/18 14:59 22:59 06:59 Intake Total 0 ml 0 ml Output Total 1700 ml 775 ml Balance -1700 ml -775 ml AUREA MIKE MD Nov 29, 2018 10:20
--- NOTE | 2018-11-29 10:21 | PDOC ---
PROGRESS NOTES Chief Complaint Chief Complaint DISCHARGE DIAGNOSIS SEVERE acute ON CHRONIC hypoxic and hypercarbic respiratory failure NIPPV dependent sepsis and shock on admit COPD with bronchitis, END STAGE malnutrition aortic stenosis DNR History of Present Illness History of Present Illness agrees with DNR OK TO D/C ///WHEN HOSPICE CAN PROVIDE CARE AT HOME TODAY dw pulmo Plan [facility]ino hospice candidate Dr. Snider has also discussed with daughters Discussed with pulmonary agrees with hospice ,. I D/W PAT d/c today Vitals Vitals Vital Signs Date Time Temp Pulse Resp B/P (MAP) Pulse Ox O2 Delivery O2 Flow Rate FiO2 11/29/18 07:40 97.6 68 44 125/75 (92) 99 Venturi Mask 97.6 11/29/18 07:28 12.0 Physical Exam Physical Exam GENERAL:NAD, Very Alert coop - pleasant. Came off bipap to NC no problem HEENT: Pupils equal, edentulous and clear NECK: Supple. LUNGS: Clear anteriorly HEART: S1, S2. + murmur ABDOMEN: little distended, soft, + BS : Carvalho in place EXTREMITIES: No cyanosis, 1 edema. LUE1 -2 DERMATOLOGIC: Warm, dry. No generalized rash. NEUROLOGIC: alert/coop PIV General: Alert, Oriented X3, Cooperative, No acute distress, Other (confused to details) Heart: Regular rate (SR no ectopies), Other (3/6 systolic murmur to AKIN border) Lungs: Clear, Other (decrease bs, no rales, rhonchi or wheezes) Abdomen: Normal bowel sounds, Soft, No tenderness Extremities: No clubbing, No cyanosis Skin: No breakdown, No significant lesion Assessment and Plan Assessmemt and Plan Problems Medical Problems: (1) Acute hypercapnic respiratory failure Status: Acute Comment Review of Relevant I have reviewed the following items heaven (where applicable) has been applied. Labs Microbiology 11/14/18 Blood Culture - Final, Complete NO GROWTH AFTER 5 DAYS 11/14/18 Urine Culture - Final, Complete 11/14/18 Urine Culture Result 1 (KRISTA) - Final, Complete Medications Current Medications Methylprednisolone Sodium Succinate (SOLU-Medrol 125MG VIAL) 125 mg 1X ONCE IV Last administered on 11/14/18at 17:14; Start 11/14/18 at 16:45; Stop 11/14/18 at 16:46; Status DC Albuterol/ Ipratropium (Duoneb) 3 ml 1X ONCE NEB Last administered on 11/14/18at 17:04; Start 11/14/18 at 16:45; Stop 11/14/18 at 16:46; Status DC Ondansetron HCl (Zofran) 4 mg 1X ONCE IV Last administered on 11/14/18at 17:13; Start 11/14/18 at 17:00; Stop 11/14/18 at 17:01; Status DC Propofol 0 ml @ As Directed STK-MED ONCE IV ; Start 11/14/18 at 18:09; Stop 11/14/18 at 18:10; Status DC Etomidate (Amidate) 20 mg STK-MED ONCE IV ; Start 11/14/18 at 18:17; Stop 11/14/18 at 18:18; Status DC Rocuronium [place] (Zemuron) 50 mg STK-MED ONCE .ROUTE ; Start 11/14/18 at 18:17; Stop 11/14/18 at 18:18; Status DC Propofol 100 ml @ 0 mls/hr CONT PRN IV SEE PROTOCOL Last administered on 11/14/18at 18:00; Start 11/14/18 at 18:30; Stop 11/15/18 at 07:38; Status DC Chlorhexidine Gluconate (Peridex) 15 ml BID MM ; Start 11/14/18 at 21:00; Stop 11/15/18 at 16:12; Status DC Midazolam HCl 100 ml @ 0 mls/hr CONT PRN IV SEE PROTOCOL; Start 11/14/18 at 18:30; Stop 11/14/18 at 20:14; Status DC Cefepime HCl (Maxipime) 2 gm Q12HR IVP Last administered on 11/20/18at 20:52; Start 11/14/18 at 18:27; Stop 11/21/18 at 07:30; Status DC Azithromycin 250 ml @ 250 mls/hr 1X ONCE IV Last administered on 11/14/18at 22:56; Start 11/14/18 at 18:30; Stop 11/14/18 at 19:29; Status DC Vancomycin HCl (Vanco Per Pharmacy) 1 each PRN DAILY PRN MC SEE COMMENTS Last administered on 11/15/18at 10:17; Start 11/14/18 at 18:30; Stop 11/16/18 at 08:07; Status DC Propofol 50 ml @ 0 mls/hr 1X ONCE IV ; Start 11/14/18 at 18:30; Stop 11/14/18 at 18:31; Status DC Etomidate (Amidate) 20 mg 1X ONCE IV Last administered on 11/14/18at 18:11; Start 11/14/18 at 18:30; Stop 11/14/18 at 18:31; Status DC Rocuronium [place] (Zemuron) 50 mg 1X ONCE IV Last administered on 11/14/18at 18:11; Start 11/14/18 at 18:30; Stop 11/14/18 at 18:31; Status DC Sodium Chloride 1,000 ml @ 1,000 mls/hr 1X ONCE IV Last administered on 11/14/18at 18:11; Start 11/14/18 at 18:30; Stop 11/14/18 at 19:29; Status DC Vancomycin HCl 1.75 gm/Sodium Chloride 500 ml @ 250 mls/hr 1X ONCE IV Last administered on 11/14/18at 21:00; Start 11/14/18 at 19:00; Stop 11/14/18 at 20:59; Status DC Midazolam HCl 100 ml @ 5 mls/hr CONT PRN IV SEE I/O RECORD Last administered on 11/15/18at 06:05; Start 11/14/18 at 20:30; Stop 11/16/18 at 12:47; Status DC Sodium Chloride 1,000 ml @ 1,000 mls/hr 1X ONCE IV Last administered on 11/14/18at 21:07; Start 11/14/18 at 21:00; Stop 11/14/18 at 21:59; Status DC Methylprednisolone Sodium Succinate (SOLU-Medrol 125MG VIAL) 125 mg Q12HR IV Last administered on 11/19/18at 08:54; Start 11/15/18 at 09:00; Stop 11/19/18 at 10:15; Status DC Albuterol/ Ipratropium (Duoneb) 3 ml Q4HRS NEB ; Start 11/15/18 at 00:00; Status Cancel Sodium Chloride 1,000 ml @ 75 mls/hr [id number] IV Last administered on 11/26/18at 01:00; Start 11/14/18 at 22:00; Stop 11/26/18 at 14:25; Status DC Sodium Chloride 1,000 ml @ 999 mls/hr 1X ONCE IV ; Start 11/14/18 at 20:45; Stop 11/14/18 at 21:45; Status UNV Albuterol/ Ipratropium (Duoneb) 3 ml RTQID NEB ; Start 11/15/18 at 08:00; Stop 11/15/18 at 08:00; Status DC Albuterol Sulfate (Ventolin Neb Soln) 2.5 mg PRN Q4HRS PRN NEB SHORTNESS OF BREATH Last administered on 11/26/18at 20:50; Start 11/14/18 at 20:45 Norepinephrine Bitartrate 250 ml @ 1.875 mls/ hr CONT PRN IV SEE I/O RECORD L ast administered on 11/15/18at 02:33; Start 11/14/18 at 22:30; Stop 11/16/18 at 12:47; Status DC Sodium Chloride 1,000 ml @ 999 mls/hr 1X ONCE IV Last administered on 11/14/18at 22:55; Start 11/14/18 at 23:00; Stop 11/15/18 at 00:00; Status DC Albuterol/ Ipratropium (Duoneb) 3 ml Q4HRS NEB Last administered on 11/29/18at 07:26; Start 11/15/18 at 00:00 Vancomycin HCl 1 gm/Sodium Chloride 250 ml @ 250 mls/hr Q12H IV Last administered on 11/15/18at 09:53; Start 11/15/18 at 09:00; Stop 11/15/18 at 12:00; Status DC Vancomycin HCl (Vancomycin Trough Level) 1 each 1X ONCE MC ; Start 11/16/18 at 20:30; Stop 11/16/18 at 20:31; Status Cancel Fentanyl Citrate 30 ml @ 0 mls/hr CONT PRN IV SEE PROTOCOL Last administered on 11/16/18at 04:50; Start 11/15/18 at 07:45; Stop 11/16/18 at 12:47; Status DC Sodium Chloride 1,000 ml @ 1,000 mls/hr 1X ONCE IV Last administered on 11/15/18at 09:54; Start 11/15/18 at 09:15; Stop 11/15/18 at 10:14; Status DC Famotidine (Pepcid Vial) 20 mg BID IVP Last administered on 11/29/18at 09:12; Start 11/15/18 at 10:00 Enoxaparin Sodium (Lovenox Per Pharmacy Prophylaxis Dosing) 1 each DAILY MC Last administered on 11/17/18at 09:00; Start 11/16/18 at 09:00; Stop 11/21/18 at 13:17; Status DC Enoxaparin Sodium (Lovenox 40mg Syringe) 40 mg Q24H SQ Last administered on 11/29/18 09:12; Start 11/15/18 at 10:00 Vancomycin HCl 1 gm/Sodium Chloride 250 ml @ 250 mls/hr Q18H IV Last administered on 11/16/18at 03:01; Start 11/16/18 at 03:00; Stop 11/16/18 at 08:06; Status DC Lorazepam (Ativan Inj) 2 mg PRN Q4HRS PRN IV ANXIETY / AGITATION Last administered on 11/16/18at 15:28; Start 11/15/18 at 12:45; Stop 11/21/18 at 13:17 ; Status DC Propofol 100 ml @ 0 mls/hr CONT PRN IV SEE PROTOCOL Last administered on 11/16/18at 04:48; Start 11/15/18 at 16:15; Stop 11/16/18 at 12:47; Status DC Flumazenil (Romazicon) 0.1 mg 1X ONCE IV Last administered on 11/16/18at 16:46; Start 11/16/18 at 16:45; Stop 11/16/18 at 16:46; Status DC Flumazenil (Romazicon) 0.1 mg 1X ONCE IV Last administered on 11/16/18at 17:49; Start 11/16/18 at 17:45; Stop 11/16/18 at 17:49; Status DC Propofol 100 ml @ As Directed STK-MED ONCE IV ; Start 11/16/18 at 20:46; Stop 11/16/18 at 20:47; Status DC Propofol 100 ml @ 1.145 mls/ hr CONT PRN IV SEE I/O RECORD Last administered on 11/20/18at 08:17; Start 11/17/18 at 02:30; Stop 11/21/18 at 13:17; Status DC Fentanyl Citrate (Fentanyl 2ml Vial) 50 mcg PRN Q2HR PRN IV PAIN Last administered on 11/17/18at 02:41; Start 11/17/18 at 02:30; Stop 11/21/18 at 13:17; Status DC Fentanyl Citrate 30 ml @ 0 mls/hr CONT PRN IV SEE PROTOCOL Last administered on 11/20/18at 06:39; Start 11/17/18 at 07:15; Stop 11/21/18 at 13:17; Status DC Dextrose (Dextrose 50%-Water Syringe) 12.5 gm PRN Q15MIN PRN IV SEE COMMENTS; Start 11/17/18 at 11:30; Stop 11/21/18 at 13:17; Status DC Propofol (Diprivan) 200 mg STK-MED ONCE IV ; Start 11/16/18 at 12:00; Stop 11/17/18 at 15:00; Status DC Rocuronium [place] (Zemuron) 50 mg STK-MED ONCE .ROUTE ; Start 11/16/18 at 12:00; Stop 11/17/18 at 15:00; Status DC Methylprednisolone Sodium Succinate (SOLU-Medrol 40MG VIAL) 40 mg Q12HR IV Last administered on 11/24/18at 08:48; Start 11/19/18 at 21:00; Stop 11/24/18 at 11:27; Status DC Piperacillin Sod/ Tazobactam Sod 3.375 gm/Sodium Chloride 50 ml @ 100 mls/hr Q6HRS IV Last administered on 11/23/18at 06:09; Start 11/21/18 at 08:00; Stop 11/23/18 at 07:23; Status DC Ondansetron HCl (Zofran) 4 mg PRN Q6HRS PRN IV NAUSEA/VOMITING Last administered on 11/21/18at 07:57; Start 11/21/18 at 08:00 Enoxaparin Sodium (Lovenox 40mg Syringe) 40 mg Q24H SQ ; Start 11/22/18 at 09:00; Status UNV Multivitamins (Thera M Plus) 1 tab DAILY PO ; Start 11/22/18 at 11:30 Prednisone (Prednisone) 30 mg DAILY PO ; Start 11/25/18 at 09:00; Stop 11/25/18 at 09:26; Status DC Aspirin (Children'S Aspirin) 162 mg DAILYWBKFT PO ; Start 11/24/18 at 18:00; Stop 11/27/18 at 07:42; Status DC Methylprednisolone Sodium Succinate (SOLU-Medrol 40MG VIAL) 40 mg DAILY IV Last administered on 11/29/18 09:12; Start 11/25/18 at 09:30 Gadoterate Meglumine (Dotarem) 16 ml 1X ONCE IVP Last administered on 11/25/18at 11:00; Start 11/25/18 at 11:00; Stop 11/25/18 at 11:01; Status DC Morphine Sulfate (Morphine Sulfate) 2 mg PRN Q1HR PRN IV PAIN Last administered on 11/27/18at 10:41; Start 11/25/18 at 19:45 Lorazepam (Ativan Inj) 2 mg PRN Q2HR PRN IV SEVERE ANXIETY / AGITATION Last administered on 11/27/18at 09:17; Start 11/25/18 at 19:45 Lorazepam (Ativan Inj) 1 mg PRN Q4HRS PRN IV MODERATE ANXIETY / AGITATION Last administered on 11/27/18at 19:58; Start 11/26/18 at 21:30 Amino Acids/ Glycerin/ Electrolytes 1,000 ml @ 75 mls/hr [id number] IV Last administered on 11/29/18at 10:09; Start 11/26/18 at 22:30 Potassium Chloride/Water 100 ml @ 100 mls/hr Q1H IV Last administered on 11/28/18at 13:06; Start 11/28/18 at 09:00; Stop 11/28/18 at 10:59; Status DC Gadoterate Meglumine (Dotarem) 15.2 ml 1X ONCE IVP ; Start 11/28/18 at 13:45; Stop 11/28/18 at 13:46; Status DC Active Scripts Active Guaifenesin Dm Syrup (Guaifenesin/Dextromethorphan) 5 Ml Syrup 10 Ml PO PRN Q6HRS PRN MDD 1 7 Days Reported Prednisone (Prednisone) 10 Mg Tablet 10 Mg PO DAILY Fluoxetine Hcl 20 Mg Capsule 20 Mg PO DAILY Incruse Ellipta (Umeclidinium [place]) 62.5 Mcg Blst.w.dev 62.5 Mcg IH DAILY Breo Ellipta 100-25 Mcg Inh (Fluticasone/Vilanterol) 1 Each Aer.pow.ba 1 Puff IH DAILY Tudorza Pressair (Aclidinium [place]) 400 Mcg Aer.pow.ba 400 Mcg IH DAILY Vitals/I & O Vital Sign - Last 24 Hours 11/28/18 11/28/18 11/28/18 11/28/18 10:50 12:03 15:05 15:52 Temp 98.3 98.6 98.3 98.6 Pulse 84 71 Resp 42 26 B/P (MAP) 115/65 (82) 142/68 (92) Pulse Ox 93 90 96 96 O2 Delivery Nasal Cannula Nasal Cannula Nasal Cannula Venturi Mask O2 Flow Rate 3.0 3.0 3.0 12.0 11/28/18 11/28/18 11/28/18 11/28/18 19:25 19:40 20:00 21:29 Temp 98.4 98.4 Pulse 71 Resp 18 B/P (MAP) 128/58 (81) Pulse Ox 96 95 O2 Delivery Venturi Mask Venturi Mask Bi-pap BiPAP/CPAP O2 Flow Rate 12.0 12.0 11/28/18 11/28/18 11/29/18 11/29/18 23:19 23:25 01:33 03:25 Temp 98.1 98.0 98.1 98.0 Pulse 61 68 Resp 18 44 B/P (MAP) 128/74 (92) 122/73 (89) Pulse Ox 97 96 96 O2 Delivery BiPAP/CPAP BiPAP/CPAP BiPAP/CPAP BiPAP/CPAP 11/29/18 11/29/18 11/29/18 03:40 07:28 07:40 Temp 97.6 97.6 Pulse 68 Resp 44 B/P (MAP) 125/75 (92) Pulse Ox 97 99 O2 Delivery BiPAP/CPAP Venturi Mask Venturi Mask O2 Flow Rate 12.0 Intake and Output 11/28/18 11/28/18 11/29/18 14:59 22:59 06:59 Intake Total 0 ml 0 ml Output Total 1700 ml 775 ml Balance -1700 ml -775 ml VON ROGERS MD Nov 29, 2018 10:21
--- NOTE | 2018-11-29 10:53 | PDOC ---
PULMONARY PROGRESS NOTES Subjective extubated 11/21. Returned to ICU 11/24 due to worsening hypoxia. back on floor DNR again on/ off bipap. on VM on prn ativan/ ms for air hunger Vitals Vital Signs Date Time Temp Pulse Resp B/P (MAP) Pulse Ox O2 Delivery O2 Flow Rate FiO2 11/29/18 10:47 97 Venturi Mask 12.0 11/29/18 07:40 97.6 68 44 125/75 (92) 97.6 General: Alert, No acute distress Lungs: Other (decrease bs, no rales, rhonchi or wheezes) Cardiovascular: S1, S2 Abdomen: Soft, Non-tender, Other (no mass) Neuro Exam: Alert Extremities: No Edema Skin: Warm Medications Active Scripts Medications Dose Route/Sig Max Daily Dose Days Date Category Guaifenesin Dm Syrup (Guaifenesin/Dextromethorphan) 5 Ml Syrup 10 Ml PO PRN Q6HRS PRN MDD 1 7 10/03/18 Rx Incruse Ellipta (Umeclidinium [place]) 62.5 Mcg Blst.w.dev 62.5 Mcg IH DAILY 07/11/17 Reported Breo Ellipta 100-25 Mcg Inh (Fluticasone/Vilanterol) 1 Each Aer.pow.ba 1 Puff IH DAILY 07/11/17 Reported Tudorza Pressair (Aclidinium [place]) 400 Mcg Aer.pow.ba 400 Mcg IH DAILY 07/11/17 Reported Comments CXR 11/24 reviewed no focal infiltrates infiltrates Impression . 1. [id number] hypercapnic respiratory failure secondary to acute exacerbation of chronic obstructive pulmonary disease.. Re-intubated 11/16, ext ubated 11/21 back on/ off BiPap now on VM 2. Shock, likely a combination of hypovolemic and septic shock. off levo, resolved 3. Low-grade fever POA. Source could be in the lungs, although chest x-ray does not show definite consolidation , no further fever 4. Underlying severe chronic obstructive pulmonary disease with chronic hypercapnia. 5. Mild azotemia. 6. Rstp-ci-[id number] protein-calorie malnutrition. 7. Moderate 8. Dysphagia Plan . 1. Will continue prn bipap, steroids, bronchodilators. prn benzo/ MS for air hunger 2. Deep venous thrombosis prophylaxis. 3. Nebs 4. elevate hob 5. d/w daughter Cora and patient in detail. Patient is fully awake and capable of making her own decisions. She clearly states that she want to go to her own home and not with her daughter. I offered hospice to help with her care at home. she agrees. she does not want tube feeds. wants to eat by herself. she has her own CPAP at home which she can use prn for dyspnea. d/w RN. Will make arrangement for home hospice XENA MCGRAW MD Nov 29, 2018 10:53
[2018-11-29 11:40] VITALS: BP 117/62
--- NOTE | 2018-11-29 11:40 | PDOC3 ---
Discharge Summary Date of Admission: Nov 14, 2018 Date of Discharge: Nov 29, 2018 Follow-Up: 1-2 days Admitting Diagnosis comment: DISCHARGE DIAGNOSIS SEVERE acute ON CHRONIC hypoxic and hypercarbic respiratory failure NIPPV dependent sepsis and shock on admit COPD with bronchitis, END STAGE malnutrition aortic stenosis DNR History of Present Illness History of Present Illness agrees with DNR OK TO D/C ///WHEN HOSPICE CAN PROVIDE CARE AT HOME TODAY dw pulmo Plan gino hospice candidate Dr. Snider has also discussed with daughters Discussed with pulmonary agrees with hospice ,. I D/W PAT d/c today D/C PLANNING 29 MIN Vitals Vitals Vital Signs Date Time Temp Pulse Resp B/P (MAP) Pulse Ox O2 Delivery O2 Flow Rate FiO2 11/29/18 07:40 97.6 68 44 125/75 (92) 99 Venturi Mask 97.6 11/29/18 07:28 12.0 Physical Exam Physical Exam GENERAL:NAD, Very Alert coop - pleasant. Came off bipap to NC no problem HEENT: Pupils equal, edentulous and clear NECK: Supple. LUNGS: Clear anteriorly HEART: S1, S2. + murmur ABDOMEN: little distended, soft, + BS : Carvalho in place EXTREMITIES: No cyanosis, 1 edema. LUE1 -2 DERMATOLOGIC: Warm, dry. No generalized rash. NEUROLOGIC: alert/coop PIV General: Alert, Oriented X3, Cooperative, No acute distress, Other (confused to details) Heart: Regular rate (SR no ectopies), Other (3/6 systolic murmur to AKIN border) Lungs: Clear, Other (decrease bs, no rales, rhonchi or wheezes) Abdomen: Normal bowel sounds, Soft, No tenderness Extremities: No clubbing, No cyanosis Skin: No breakdown, No significant lesion FINAL DIAGNOSIS Problems Medical Problems: (1) Acute hypercapnic respiratory failure Status: Acute Brief Hospital Course Ms. Velez is a 63 old [sex] who presented with [ ] CONDITION AT DISCHARGE: Comment (GUARDED PROGNOSIS) Discharge Medications Current Medications Methylprednisolone Sodium Succinate (SOLU-Medrol 125MG VIAL) 125 mg 1X ONCE IV Last administered on 11/14/18at 17:14; Start 11/14/18 at 16:45; Stop 11/14/18 at 16:46; Status DC Albuterol/ Ipratropium (Duoneb) 3 ml 1X ONCE NEB Last administered on 11/14/18at 17:04; Start 11/14/18 at 16:45; Stop 11/14/18 at 16:46; Status DC Ondansetron HCl (Zofran) 4 mg 1X ONCE IV Last administered on 11/14/18at 17:13; Start 11/14/18 at 17:00; Stop 11/14/18 at 17:01; Status DC Propofol 0 ml @ As Directed STK-MED ONCE IV ; Start 11/14/18 at 18:09; Stop 11/14/18 at 18:10; Status DC Etomidate (Amidate) 20 mg STK-MED ONCE IV ; Start 11/14/18 at 18:17; Stop 11/14/18 at 18:18; Status DC Rocuronium [place] (Zemuron) 50 mg STK-MED ONCE .ROUTE ; Start 11/14/18 at 18:17; Stop 11/14/18 at 18:18; Status DC Propofol 100 ml @ 0 mls/hr CONT PRN IV SEE PROTOCOL Last administered on 11/14/18at 18:00; Start 11/14/18 at 18:30; Stop 11/15/18 at 07:38; Status DC Chlorhexidine Gluconate (Peridex) 15 ml BID MM ; Start 11/14/18 at 21:00; Stop 11/15/18 at 16:12; Status DC Midazolam HCl 100 ml @ 0 mls/hr CONT PRN IV SEE PROTOCOL; Start 11/14/18 at 18:30; Stop 11/14/18 at 20:14; Status DC Cefepime HCl (Maxipime) 2 gm Q12HR IVP Last administered on 11/20/18at 20:52; Start 11/14/18 at 18:27; Stop 11/21/18 at 07:30; Status DC Azithromycin 250 ml @ 250 mls/hr 1X ONCE IV Last administered on 11/14/18at 22:56; Start 11/14/18 at 18:30; Stop 11/14/18 at 19:29; Status DC Vancomycin HCl (Vanco Per Pharmacy) 1 each PRN DAILY PRN MC SEE COMMENTS Last administered on 11/15/18at 10:17; Start 11/14/18 at 18:30; Stop 11/16/18 at 08:07; Status DC Propofol 50 ml @ 0 mls/hr 1X ONCE IV ; Start 11/14/18 at 18:30; Stop 11/14/18 at 18:31; Status DC Etomidate (Amidate) 20 mg 1X ONCE IV Last administered on 11/14/18at 18:11; Start 11/14/18 at 18:30; Stop 11/14/18 at 18:31; Status DC Rocuronium [place] (Zemuron) 50 mg 1X ONCE IV Last administered on 11/14/18at 18:11; Start 11/14/18 at 18:30; Stop 11/14/18 at 18:31; Status DC Sodium Chloride 1,000 ml @ 1,000 mls/hr 1X ONCE IV Last administered on 11/14/18at 18:11; Start 11/14/18 at 18:30; Stop 11/14/18 at 19:29; Status DC Vancomycin HCl 1.75 gm/Sodium Chloride 500 ml @ 250 mls/hr 1X ONCE IV Last administered on 11/14/18at 21:00; Start 11/14/18 at 19:00; Stop 11/14/18 at 20:59; Status DC Midazolam HCl 100 ml @ 5 mls/hr CONT PRN IV SEE I/O RECORD Last administered on 11/15/18at 06:05; Start 11/14/18 at 20:30; Stop 11/16/18 at 12:47; Status DC Sodium Chloride 1,000 ml @ 1,000 mls/hr 1X ONCE IV Last administered on 11/14/18at 21:07; Start 11/14/18 at 21:00; Stop 11/14/18 at 21:59; Status DC Methylprednisolone Sodium Succinate (SOLU-Medrol 125MG VIAL) 125 mg Q12HR IV Last administered on 11/19/18at 08:54; Start 11/15/18 at 09:00; Stop 11/19/18 at 10:15; Status DC Albuterol/ Ipratropium (Duoneb) 3 ml Q4HRS NEB ; Start 11/15/18 at 00:00; Status Cancel Sodium Chloride 1,000 ml @ 75 mls/hr [id number] IV Last administered on 11/26/18at 01:00; Start 11/14/18 at 22:00; Stop 11/26/18 at 14:25; Status DC Sodium Chloride 1,000 ml @ 999 mls/hr 1X ONCE IV ; Start 11/14/18 at 20:45; Stop 11/14/18 at 21:45; Status UNV Albuterol/ Ipratropium (Duoneb) 3 ml RTQID NEB ; Start 11/15/18 at 08:00; Stop 11/15/18 at 08:00; Status DC Albuterol Sulfate (Ventolin Neb Soln) 2.5 mg PRN Q4HRS PRN NEB SHORTNESS OF BREATH Last administered on 11/26/18at 20:50; Start 11/14/18 at 20:45 Norepinephrine Bitartrate 250 ml @ 1.875 mls/ hr CONT PRN IV SEE I/O RECORD Last administered on 11/15/18at 02:33; Start 11/14/18 at 22:30; Stop 11/16/18 at 12:47; Status DC Sodium Chloride 1,000 ml @ 999 mls/hr 1X ONCE IV Last administered on 11/14/18at 22:55; Start 11/14/18 at 23:00; Stop 11/15/18 at 00:00; Status DC Albuterol/ Ipratropium (Duoneb) 3 ml Q4HRS NEB Last administered on 11/29/18at 10:45; Start 11/15/18 at 00:00 Vancomycin HCl 1 gm/Sodium Chloride 250 ml @ 250 mls/hr Q12H IV Last administe red on 11/15/18at 09:53; Start 11/15/18 at 09:00; Stop 11/15/18 at 12:00; Status DC Vancomycin HCl (Vancomycin Trough Level) 1 each 1X ONCE MC ; Start 11/16/18 at 20:30; Stop 11/16/18 at 20:31; Status Cancel Fentanyl Citrate 30 ml @ 0 mls/hr CONT PRN IV SEE PROTOCOL Last administered on 11/16/18at 04:50; Start 11/15/18 at 07:45; Stop 11/16/18 at 12:47; Status DC Sodium Chloride 1,000 ml @ 1,000 mls/hr 1X ONCE IV Last administered on 11/15/18at 09:54; Start 11/15/18 at 09:15; Stop 11/15/18 at 10:14; Status DC Famotidine (Pepcid Vial) 20 mg BID IVP Last administered on 11/29/18 09:12; Start 11/15/18 at 10:00 Enoxaparin Sodium (Lovenox Per Pharmacy Prophylaxis Dosing) 1 each DAILY MC Last administered on 11/17/18 09:00; Start 11/16/18 at 09:00; Stop 11/21/18 at 13:17; Status DC Enoxaparin Sodium (Lovenox 40mg Syringe) 40 mg Q24H SQ Last administered on 11/29/18 09:12; Start 11/15/18 at 10:00 Vancomycin HCl 1 gm/Sodium Chloride 250 ml @ 250 mls/hr Q18H IV Last administered on 11/16/18 03:01; Start 11/16/18 at 03:00; Stop 11/16/18 at 08:06; Status DC Lorazepam (Ativan Inj) 2 mg PRN Q4HRS PRN IV ANXIETY / AGITATION Last ad ministered on 11/16/18at 15:28; Start 11/15/18 at 12:45; Stop 11/21/18 at 13:17; Status DC Propofol 100 ml @ 0 mls/hr CONT PRN IV SEE PROTOCOL Last administered on 11/16/18at 04:48; Start 11/15/18 at 16:15; Stop 11/16/18 at 12:47; Status DC Flumazenil (Romazicon) 0.1 mg 1X ONCE IV Last administered on 11/16/18at 16:46; Start 11/16/18 at 16:45; Stop 11/16/18 at 16:46; Status DC Flumazenil (Romazicon) 0.1 mg 1X ONCE IV Last administered on 11/16/18at 17:49; Start 11/16/18 at 17:45; Stop 11/16/18 at 17:49; Status DC Propofol 100 ml @ As Directed STK-MED ONCE IV ; Start 11/16/18 at 20:46; Stop 11/16/18 at 20:47; Status DC Propofol 100 ml @ 1.145 mls/ hr CONT PRN IV SEE I/O RECORD Last administered on 11/20/18at 08:17; Start 11/17/18 at 02:30; Stop 11/21/18 at 13:17; Status DC Fentanyl Citrate (Fentanyl 2ml Vial) 50 mcg PRN Q2HR PRN IV PAIN Last administered on 11/17/18at 02:41; Start 11/17/18 at 02:30; Stop 11/21/18 at 13:17; Status DC Fentanyl Citrate 30 ml @ 0 mls/hr CONT PRN IV SEE PROTOCOL Last administered on 11/20/18at 06:39; Start 11/17/18 at 07:15; Stop 11/21/18 at 13:17; Status DC Dextrose (Dextrose 50%-Water Syringe) 12.5 gm PRN Q15MIN PRN IV SEE COMMENTS; Start 11/17/18 at 11:30; Stop 11/21/18 at 13:17; Status DC Propofol (Diprivan) 200 mg STK-MED ONCE IV ; Start 11/16/18 at 12:00; Stop 11/17/18 at 15:00; Status DC Rocuronium [place] (Zemuron) 50 mg STK-MED ONCE .ROUTE ; Start 11/16/18 at 12:00; Stop 11/17/18 at 15:00; Status DC Methylprednisolone Sodium Succinate (SOLU-Medrol 40MG VIAL) 40 mg Q12HR IV Last administered on 11/24/18at 08:48; Start 11/19/18 at 21:00; Stop 11/24/18 at 11:27; Status DC Piperacillin Sod/ Tazobactam Sod 3.375 gm/Sodium Chloride 50 ml @ 100 mls/hr Q6HRS IV Last administered on 11/23/18at 06:09; Start 11/21/18 at 08:00; Stop 11/23/18 at 07:23; Status DC Ondansetron HCl (Zofran) 4 mg PRN Q6HRS PRN IV NAUSEA/VOMITING Last administered on 11/21/18at 07:57; Start 11/21/18 at 08:00 Enoxaparin Sodium (Lovenox 40mg Syringe) 40 mg Q24H SQ ; Start 11/22/18 at 09:00; Status UNV Multivitamins (Thera M Plus) 1 tab DAILY PO ; Start 11/22/18 at 11:30 Prednisone (Prednisone) 30 mg DAILY PO ; Start 11/25/18 at 09:00; Stop 11/25/18 at 09:26; Status DC Aspirin (Children'S Aspirin) 162 mg DAILYWBKFT PO ; Start 11/24/18 at 18:00; Stop 11/27/18 at 07:42; Status DC Methylprednisolone Sodium Succinate (SOLU-Medrol 40MG VIAL) 40 mg DAILY IV Last administered on 11/29/18at 09:12; Start 11/25/18 at 09:30 Gadoterate Meglumine (Dotarem) 16 ml 1X ONCE IVP Last administered on 11/25/18at 11:00; Start 11/25/18 at 11:00; Stop 11/25/18 at 11:01; Status DC Morphine Sulfate (Morphine Sulfate) 2 mg PRN Q1HR PRN IV PAIN Last administered on 11/27/18at 10:41; Start 11/25/18 at 19:45 Lorazepam (Ativan Inj) 2 mg PRN Q2HR PRN IV SEVERE ANXIETY / AGITATION Last administered on 11/27/18at 09:17; Start 11/25/18 at 19:45 Lorazepam (Ativan Inj) 1 mg PRN Q4HRS PRN IV MODERATE ANXIETY / AGITATION Last administered on 11/27/18at 19:58; Start 11/26/18 at 21:30 Amino Acids/ Glycerin/ Electrolytes 1,000 ml @ 75 mls/hr [id number] IV Last administered on 11/29/18at 10:09; Start 11/26/18 at 22:30 Potassium Chloride/Water 100 ml @ 100 mls/hr Q1H IV Last administered on 11/28/18at 13:06; Start 11/28/18 at 09:00; Stop 11/28/18 at 10:59; Status DC Gadoterate Meglumine (Dotarem) 15.2 ml 1X ONCE IVP ; Start 11/28/18 at 13:45; Stop 11/28/18 at 13:46; Status DC Active Scripts Active Guaifenesin Dm Syrup (Guaifenesin/Dextromethorphan) 5 Ml Syrup 10 Ml PO PRN Q6HRS PRN MDD 1 7 Days Reported Prednisone (Prednisone) 10 Mg Tablet 10 Mg PO DAILY Fluoxetine Hcl 20 Mg Capsule 20 Mg PO DAILY Incruse Ellipta (Umeclidinium [place]) 62.5 Mcg Blst.w.dev 62.5 Mcg IH DAILY Breo Ellipta 100-25 Mcg Inh (Fluticasone/Vilanterol) 1 Each Aer.pow.ba 1 Puff IH DAILY Tudorza Pressair (Aclidinium [place]) 400 Mcg Aer.pow.ba 400 Mcg IH DAILY Vital Signs Vital Signs Date Time Temp Pulse Resp B/P (MAP) Pulse Ox O2 Delivery O2 Flow Rate FiO2 11/29/18 10:47 97 Venturi Mask 12.0 11/29/18 07:40 97.6 68 44 125/75 (92) 97.6 Allergies Allergies Coded Allergies Type Severity Reaction Last Updated Verified No Known Drug Allergies 07/11/17 No Disposition/Orders: D/C to Home w/ Hospice Patient Instructions D/C PLANNING 29 MIN VON ROGERS MD Nov 29, 2018 11:40
[2018-11-29] MEDS ORDERED: MULT1TAB90 PO (11:43)
[2018-11-29] MEDS ORDERED: PRED50TA PO (11:43)
--- NOTE | 2018-11-29 11:46 | SNU/HH DC ---
DISCHARGE ORDERS DISCHARGE INFORMATION: FINAL DIAGNOSIS Problems Medical Problems: (1) Acute hypercapnic respiratory failure Status: Acute CONDITION ON DISCHARGE: Guarded CODE STATUS: Code Status: DNR/DNI HOSPICE: HOSPICE: Yes HOSPICE EVAL & TREAT: Yes LTAC: ADMIT TO LTAC: No POST DISCHARGE ORDERS: ACTIVITY ORDERS: Activity as tolerated DIET AFTER DISCHARGE: Regular CHECKS AFTER DISCHARGE: CHECKS AFTER DISCHARGE: Check blood press - daily TREATMENT/EQUIPMENT ORDERS: ADAPTIVE EQUIPMENT NEEDED: Commode, Front wheeled walker, Wheelchair RESPIRATORY EQUIPMENT NEEDED: Oxygen Speech Language Pathology For: Swallow Cognition DISCHARGE MEDICATIONS: Home Meds Active Scripts Prednisone (PREDNISONE) 50 Mg Tablet, 50 MG PO DAILY for LUNGS for 10 Days, #10 TAB Prov:VON ROGERS MD 11/29/18 Multivits,Ca,Minerals/Iron/Fa (THERA-M TABLET) 1 Each Tablet, 1 TAB PO DAILY for SUPPLEMENT for 30 Days, #30 TAB Prov:VON ROGERS MD 11/29/18 Guaifenesin/Dextromethorphan (GUAIFENESIN DM SYRUP) 5 Ml Syrup, 10 ML PO PRN Q6HRS PRN for COUGH MDD 1 for 7 Days, [facility] Prov:IKER NASSAR MD 10/03/18 Reported Medications Fluoxetine Hcl (FLUOXETINE HCL) 20 Mg Capsule, 20 MG PO DAILY for anxiety 11/16/18 Umeclidinium [place] (Incruse Ellipta) 62.5 Mcg Blst.w.dev, 62.5 MCG IH DAILY 07/11/17 Fluticasone/Vilanterol (BREO ELLIPTA 100-25 MCG INH) 1 Each Aer.pow.ba, 1 PUFF IH DAILY, INHALER 07/11/17 Aclidinium [place] (TUDORZA PRESSAIR) 400 Mcg Aer.pow.ba, 400 MCG IH DAILY, INH 07/11/17 Discontinued Reported Medications Prednisone (PREDNISONE ) 10 Mg Tablet, 10 MG PO DAILY for breathing 11/16/18 VON ROGERS MD Nov 29, 2018 11:46
--- NOTE | 2018-11-29 11:58 | PDOC2 ---
PALLIATIVE CARE Palliative Care Note Palliative Care Referral by Dr. Snider to discharge home with hospice. Patient, daughter Cora and Dr. Snider discussed goal of hospice. Spoke with Dr. Snider. Decision has been made to go home with hospice. Discussed discharge plan with Cora and patient. Informed of Hospice services and support. Patient will need someone with her 29/11. No one is at home to care for patient. Daughter Cora, and patient acknowledge understanding. Cora offered her home for patient. Patient requests to go home with Cora. Cora states she has texted her sister Tiana and brother the patient's decision. Discussed Hospice Agency. Provided several agency options. Cora and patient request [facility]. Patient currently on VM sats remaining upper 90's. Will change to Oxygen 2L NC. Patient may continue to use CPAP at home per . DME: Bed, oxygen. Continue Carvalho catheter. Spoke with Tiana BAJWA regarding discharge plan, JOANN ORNELAS Nov 29, 2018 11:58
--- NOTE | 2018-11-29 12:05 | NUR ---
Dobhoff removed and patient diet upgraded to pleasure feeding.
[2018-11-29 15:05] VITALS: BP 119/72
[2018-11-29 19:25] VITALS: BP 124/73
[2018-11-29 23:43] VITALS: BP 174/69
[2018-11-30 03:44] VITALS: BP 111/66
[2018-11-30] MEDS: IPRATRPIUM/ALBUTEROL 0.5/2.5MG 3 ML NEBU. NEB SCH ×4 (03:50→15:24)
[2018-11-30 07:40] VITALS: BP 103/63
--- NOTE | 2018-11-30 08:02 | PDOC ---
PROGRESS NOTES Chief Complaint Chief Complaint DISCHARGE DIAGNOSIS SEVERE acute ON CHRONIC hypoxic and hypercarbic respiratory failure NIPPV dependent sepsis and shock on admit COPD with bronchitis, END STAGE malnutrition aortic stenosis DNR 11/30 alert , slightly confused , on pleasure feeds History of Present Illness History of Present Illness agrees with DNR OK TO D/C ///WHEN HOSPICE CAN PROVIDE CARE AT HOME TODAY dw pulmo Plan gino hospice candidate Dr. Snider has also discussed with daughters Discussed with pulmonary agrees with hospice ,. I D/W PAT d/c today Vitals Vitals Vital Signs Date Time Temp Pulse Resp B/P (MAP) Pulse Ox O2 Delivery O2 Flow Rate FiO2 11/30/18 03:49 BiPAP/CPAP 11/30/18 03:44 97.7 68 20 111/66 (81) 96 97.7 11/29/18 23:25 12.0 Physical Exam Physical Exam GENERAL:NAD, Very Alert coop - pleasant. Came off bipap to NC no problem HEENT: Pupils equal, edentulous and clear NECK: Supple. LUNGS: Clear anteriorly HEART: S1, S2. + murmur ABDOMEN: little distended, soft, + BS : Carvalho in place EXTREMITIES: No cyanosis, 1 edema. LUE1 -2 DERMATOLOGIC: Warm, dry. No generalized rash. NEUROLOGIC: alert/coop PIV General: Alert, Oriented X3, Cooperative, No acute distress, mild distress, Other (confused to details) Heart: Regular rate (SR no ectopies), Other (3/6 systolic murmur to AKIN border) Lungs: Clear, Other (decrease bs, no rales, rhonchi or wheezes) Abdomen: Normal bowel sounds, Soft, No tenderness Extremities: No clubbing, No cyanosis Skin: No breakdown, No significant lesion Assessment and Plan Assessmemt and Plan Problems Medical Problems: (1) Acute hypercapnic respiratory failure Status: Acute Comment Review of Relevant I have reviewed the following items heaven (where applicable) has been applied. Labs Microbiology 11/14/18 Blood Culture - Final, Complete NO GROWTH AFTER 5 DAYS 11/14/18 Urine Culture - Final, Complete 11/14/18 Urine Culture Result 1 (KRISTA) - Final, Complete Medications Current Medications Methylprednisolone Sodium Succinate (SOLU-Medrol 125MG VIAL) 125 mg 1X ONCE IV Last administered on 11/14/18at 17:14; Start 11/14/18 at 16:45; Stop 11/14/18 at 16:46; Status DC Albuterol/ Ipratropium (Duoneb) 3 ml 1X ONCE NEB Last administered on 11/14/18at 17:04; Start 11/14/18 at 16:45; Stop 11/14/18 at 16:46; Status DC Ondansetron HCl (Zofran) 4 mg 1X ONCE IV Last administered on 11/14/18at 17:13; Start 11/14/18 at 17:00; Stop 11/14/18 at 17:01; Status DC Propofol 0 ml @ As Directed STK-MED ONCE IV ; Start 11/14/18 at 18:09; Stop 11/14/18 at 18:10; Status DC Etomidate (Amidate) 20 mg STK-MED ONCE IV ; Start 11/14/18 at 18:17; Stop 11/14/18 at 18:18; Status DC Rocuronium [place] (Zemuron) 50 mg STK-MED ONCE .ROUTE ; Start 11/14/18 at 18:17; Stop 11/14/18 at 18:18; Status DC Propofol 100 ml @ 0 mls/hr CONT PRN IV SEE PROTOCOL Last administered on 11/14/18at 18:00; Start 11/14/18 at 18:30; Stop 11/15/18 at 07:38; Status DC Chlorhexidine Gluconate (Peridex) 15 ml BID MM ; Start 11/14/18 at 21:00; Stop 11/15/18 at 16:12; Status DC Midazolam HCl 100 ml @ 0 mls/hr CONT PRN IV SEE PROTOCOL; Start 11/14/18 at 18:30; Stop 11/14/18 at 20:14; Status DC Cefepime HCl (Maxipime) 2 gm Q12HR IVP Last administered on 11/20/18at 20:52; Start 11/14/18 at 18:27; Stop 11/21/18 at 07:30; Status DC Azithromycin 250 ml @ 250 mls/hr 1X ONCE IV Last administered on 11/14/18at 22:56; Start 11/14/18 at 18:30; Stop 11/14/18 at 19:29; Status DC Vancomycin HCl (Vanco Per Pharmacy) 1 each PRN DAILY PRN MC SEE COMMENTS Last administered on 11/15/18at 10:17; Start 11/14/18 at 18:30; Stop 11/16/18 at 08:07; Status DC Propofol 50 ml @ 0 mls/hr 1X ONCE IV ; Start 11/14/18 at 18:30; Stop 11/14/18 at 18:31; Status DC Etomidate (Amidate) 20 mg 1X ONCE IV Last administered on 11/14/18at 18:11; Start 11/14/18 at 18:30; Stop 11/14/18 at 18:31; Status DC Rocuronium [place] (Zemuron) 50 mg 1X ONCE IV Last administered on 11/14/18at 18:11; Start 11/14/18 at 18:30; Stop 11/14/18 at 18:31; Status DC Sodium Chloride 1,000 ml @ 1,000 mls/hr 1X ONCE IV Last administered on 11/14/18at 18:11; Start 11/14/18 at 18:30; Stop 11/14/18 at 19:29; Status DC Vancomycin HCl 1.75 gm/Sodium Chloride 500 ml @ 250 mls/hr 1X ONCE IV Last administered on 11/14/18at 21:00; Start 11/14/18 at 19:00; Stop 11/14/18 at 20:59; Status DC Midazolam HCl 100 ml @ 5 mls/hr CONT PRN IV SEE I/O RECORD Last administered on 11/15/18at 06:05; Start 11/14/18 at 20:30; Stop 11/16/18 at 12:47; Status DC Sodium Chloride 1,000 ml @ 1,000 mls/hr 1X ONCE IV Last administered on 11/14/18at 21:07; Start 11/14/18 at 21:00; Stop 11/14/18 at 21:59; Status DC Methylprednisolone Sodium Succinate (SOLU-Medrol 125MG VIAL) 125 mg Q12HR IV Last administered on 11/19/18at 08:54; Start 11/15/18 at 09:00; Stop 11/19/18 at 10:15; Status DC Albuterol/ Ipratropium (Duoneb) 3 ml Q4HRS NEB ; Start 11/15/18 at 00:00; Sta tus Cancel Sodium Chloride 1,000 ml @ 75 mls/hr [id number] IV Last administered on 11/26/18at 01:00; Start 11/14/18 at 22:00; Stop 11/26/18 at 14:25; Status DC Sodium Chloride 1,000 ml @ 999 mls/hr 1X ONCE IV ; Start 11/14/18 at 20:45; Stop 11/14/18 at 21:45; Status UNV Albuterol/ Ipratropium (Duoneb) 3 ml RTQID NEB ; Start 11/15/18 at 08:00; Stop 11/15/18 at 08:00; Status DC Albuterol Sulfate (Ventolin Neb Soln) 2.5 mg PRN Q4HRS PRN NEB SHORTNESS OF BREATH Last administered on 11/26/18at 20:50; Start 11/14/18 at 20:45 Norepinephrine Bitartrate 250 ml @ 1.875 mls/ hr CONT PRN IV SEE I/O RECORD Last administered on 11/15/18at 02:33; Start 11/14/18 at 22:30; Stop 11/16/18 at 12:47; Status DC Sodium Chloride 1,000 ml @ 999 mls/hr 1X ONCE IV Last administered on 11/14/18at 22:55; Start 11/14/18 at 23:00; Stop 11/15/18 at 00:00; Status DC Albuterol/ Ipratropium (Duoneb) 3 ml Q4HRS NEB Last administered on 11/30/18at 03:50; Start 11/15/18 at 00:00 Vancomycin HCl 1 gm/Sodium Chloride 250 ml @ 250 mls/hr Q12H IV Last administered on 11/15/18at 09:53; Start 11/15/18 at 09:00; Stop 11/15/18 at 12:00; Status DC Vancomycin HCl (Vancomycin Trough Level) 1 each 1X ONCE MC ; Start 11/16/18 at 20:30; Stop 11/16/18 at 20:31; Status Cancel Fentanyl Citrate 30 ml @ 0 mls/hr CONT PRN IV SEE PROTOCOL Last administered on 11/16/18at 04:50; Start 11/15/18 at 07:45; Stop 11/16/18 at 12:47; Status DC Sodium Chloride 1,000 ml @ 1,000 mls/hr 1X ONCE IV Last administered on 11/15/18at 09:54; Start 11/15/18 at 09:15; Stop 11/15/18 at 10:14; Status DC Famotidine (Pepcid Vial) 20 mg BID IVP Last administered on 11/29/18at 20:04; Start 11/15/18 at 10:00 Enoxaparin Sodium (Lovenox Per Pharmacy Prophylaxis Dosing) 1 each DAILY MC Last administered on 11/17/18at 09:00; Start 11/16/18 at 09:00; Stop 11/21/18 at 13:17; Status DC Enoxaparin Sodium (Lovenox 40mg Syringe) 40 mg Q24H SQ Last administered on 11/29/18 09:12; Start 11/15/18 at 10:00 Vancomycin HCl 1 gm/Sodium Chloride 250 ml @ 250 mls/hr Q18H IV Last administered on 11/16/18at 03:01; Start 11/16/18 at 03:00; Stop 11/16/18 at 08:06; Status DC Lorazepam (Ativan Inj) 2 mg PRN Q4HRS PRN IV ANXIETY / AGITATION Last administered on 11/16/18at 15:28; Start 11/15/18 at 12:45; Stop 11/21/18 at 13:17; Status DC Propofol 100 ml @ 0 mls/hr CONT PRN IV SEE PROTOCOL Last administered on 11/16/18at 04:48; Start 11/15/18 at 16:15; Stop 11/16/18 at 12:47; Status DC Flumazenil (Romazicon) 0.1 mg 1X ONCE IV Last administered on 11/16/18at 16:46; Start 11/16/18 at 16:45; Stop 11/16/18 at 16:46; Status DC Flumazenil (Romazicon) 0.1 mg 1X ONCE IV Last administered on 11/16/18at 17:49; Start 11/16/18 at 17:45; Stop 11/16/18 at 17:49; Status DC Propofol 100 ml @ As Directed STK-MED ONCE IV ; Start 11/16/18 at 20:46; Stop 11/16/18 at 20:47; Status DC Propofol 100 ml @ 1.145 mls/ hr CONT PRN IV SEE I/O RECORD Last administered on 11/20/18at 08:17; Start 11/17/18 at 02:30; Stop 11/21/18 at 13:17; Status DC Fentanyl Citrate (Fentanyl 2ml Vial) 50 mcg PRN Q2HR PRN IV PAIN Last administered on 11/17/18at 02:41; Start 11/17/18 at 02:30; Stop 11/21/18 at 13:17; Status DC Fentanyl Citrate 30 ml @ 0 mls/hr CONT PRN IV SEE PROTOCOL Last administered on 11/20/18at 06:39; Start 11/17/18 at 07:15; Stop 11/21/18 at 13:17; Status DC Dextrose (Dextrose 50%-Water Syringe) 12.5 gm PRN Q15MIN PRN IV SEE COMMENTS; Start 11/17/18 at 11:30; Stop 11/21/18 at 13:17; Status DC Propofol (Diprivan) 200 mg STK-MED ONCE IV ; Start 11/16/18 at 12:00; Stop 11/17/18 at 15:00; Status DC Rocuronium [place] (Zemuron) 50 mg STK-MED ONCE .ROUTE ; Start 11/16/18 at 12:00; Stop 11/17/18 at 15:00; Status DC Methylprednisolone Sodium Succinate (SOLU-Medrol 40MG VIAL) 40 mg Q12HR IV Last administered on 11/24/18at 08:48; Start 11/19/18 at 21:00; Stop 11/24/18 at 11:27; Status DC Piperacillin Sod/ Tazobactam Sod 3.375 gm/Sodium Chloride 50 ml @ 100 mls/hr Q6HRS IV Last administered on 11/23/18at 06:09; Start 11/21/18 at 08:00; Stop 11/23/18 at 07:23; Status DC Ondansetron HCl (Zofran) 4 mg PRN Q6HRS PRN IV NAUSEA/VOMITING Last adm inistered on 11/21/18at 07:57; Start 11/21/18 at 08:00 Enoxaparin Sodium (Lovenox 40mg Syringe) 40 mg Q24H SQ ; Start 11/22/18 at 09:00; Status UNV Multivitamins (Thera M Plus) 1 tab DAILY PO ; Start 11/22/18 at 11:30 Prednisone (Prednisone) 30 mg DAILY PO ; Start 11/25/18 at 09:00; Stop 11/25/18 at 09:26; Status DC Aspirin (Children'S Aspirin) 162 mg DAILYWBKFT PO ; Start 11/24/18 at 18:00; Stop 11/27/18 at 07:42; Status DC Methylprednisolone Sodium Succinate (SOLU-Medrol 40MG VIAL) 40 mg DAILY IV Last administered on 11/29/18at 09:12; Start 11/25/18 at 09:30 Gadoterate Meglumine (Dotarem) 16 ml 1X ONCE IVP Last administered on 11/25/18at 11:00; Start 11/25/18 at 11:00; Stop 11/25/18 at 11:01; Status DC Morphine Sulfate (Morphine Sulfate) 2 mg PRN Q1HR PRN IV PAIN Last administered on 11/27/18at 10:41; Start 11/25/18 at 19:45 Lorazepam (Ativan Inj) 2 mg PRN Q2HR PRN IV SEVERE ANXIETY / AGITATION Last administered on 11/27/18at 09:17; Start 11/25/18 at 19:45 Lorazepam (Ativan Inj) 1 mg PRN Q4HRS PRN IV MODERATE ANXIETY / AGITATION Last administered on 11/27/18at 19:58; Start 11/26/18 at 21:30 Amino Acids/ Glycerin/ Electrolytes 1,000 ml @ 75 mls/hr [id number] IV Last administered on 11/29/18at 23:48; Start 11/26/18 at 22:30 Potassium Chloride/Water 100 ml @ 100 mls/hr Q1H IV Last administered on 11/28/18at 13:06; Start 11/28/18 at 09:00; Stop 11/28/18 at 10:59; Status DC Gadoterate Meglumine (Dotarem) 15.2 ml 1X ONCE IVP ; Start 11/28/18 at 13:45; Stop 11/28/18 at 13:46; Status DC Active Scripts Active Prednisone 50 Mg Tablet 50 Mg PO DAILY 10 Days Thera-M Tablet (Multivits,Ca,Minerals/Iron/Fa) 1 Each Tablet 1 Tab PO DAILY 30 Days Guaifenesin Dm Syrup (Guaifenesin/Dextromethorphan) 5 Ml Syrup 10 Ml PO PRN Q6HRS PRN MDD 1 7 Days Reported Fluoxetine Hcl 20 Mg Capsule 20 Mg PO DAILY Incruse Ellipta (Umeclidinium [place]) 62.5 Mcg Blst.w.dev 62.5 Mcg IH DAILY Breo Ellipta 100-25 Mcg Inh (Fluticasone/Vilanterol) 1 Each Aer.pow.ba 1 Puff IH DAILY Tudorza Pressair (Aclidinium [place]) 400 Mcg Aer.pow.ba 400 Mcg IH DAILY Vitals/I & O Vital Sign - Last 24 Hours 11/29/18 11/29/18 11/29/18 11/29/18 10:47 11:40 15:01 15:05 Temp 98.4 98.5 98.4 98.5 Pulse 78 74 Resp 22 20 B/P (MAP) 117/62 (80) 119/72 (88) Pulse Ox 97 97 97 99 O2 Delivery Venturi Mask Venturi Mask Venturi Mask Venturi Mask O2 Flow Rate 12.0 12.0 11/29/18 11/29/18 11/29/18 11/29/18 19:22 19:25 20:00 23:25 Temp 98.1 98.1 Pulse 74 Resp 20 B/P (MAP) 124/73 (90) Pulse Ox 97 98 95 O2 Delivery Venturi Mask Venturi Mask Venturi Mask Venturi Mask O2 Flow Rate 12.0 9.0 12.0 11/29/18 11/29/18 11/30/18 11/30/18 23:26 23:43 01:55 03:44 Temp 97.7 97.7 97.7 97.7 Pulse 68 68 Resp 20 20 B/P (MAP) 174/69 (104) 111/66 (81) Pulse Ox 98 96 O2 Delivery BiPAP/CPAP BiPAP/CPAP BiPAP/CPAP BiPAP/CPAP 11/30/18 03:49 O2 Delivery BiPAP/CPAP Intake and Output 11/29/18 11/29/18 11/30/18 14:59 22:59 06:59 Intake Total 240 ml Output Total 1400 ml Balance -1160 ml VON ROGERS MD Nov 30, 2018 08:02
[2018-11-30] MEDS: MULTIVITAMIN with MINERAL TABLET. PO SCH (09:00)
[2018-11-30] MEDS: FAMOTIDINE 20 MG/2 ML VIAL IVP SCH (09:24)
[2018-11-30] MEDS: methylPREDNISolone SOD SUCC PF 40 MG/ML VIAL. IV SCH (09:25)
[2018-11-30] MEDS: ENOXAPARIN 40 MG/0.4 ML SYRINGE. SQ SCH (09:55)
--- NOTE | 2018-11-30 10:12 | PDOC ---
PULMONARY PROGRESS NOTES Subjective extubated 11/21. Returned to ICU 11/24 due to worsening hypoxia. back on floor DNR on VM on prn ativan/ ms for air hunger feels better today Vitals Vital Signs Date Time Temp Pulse Resp B/P (MAP) Pulse Ox O2 Delivery O2 Flow Rate FiO2 11/30/18 08:13 95 Venturi Mask 12.0 11/30/18 07:40 96.2 81 22 103/63 (76) 96.2 General: Alert, No acute distress Lungs: Clear, Other (decrease bs, no rales, rhonchi or wheezes) Cardiovascular: S1, S2 Abdomen: Soft, Non-tender, Other (no mass) Neuro Exam: Alert Extremities: No Edema Skin: Warm Medications Active Scripts Medications Dose Route/Sig Max Daily Dose Days Date Category Guaifenesin Dm Syrup (Guaifenesin/Dextromethorphan) 5 Ml Syrup 10 Ml PO PRN Q6HRS PRN MDD 1 7 10/03/18 Rx Incruse Ellipta (Umeclidinium [place]) 62.5 Mcg Blst.w.dev 62.5 Mcg IH DAILY 07/11/17 Reported Breo Ellipta 100-25 Mcg Inh (Fluticasone/Vilanterol) 1 Each Aer.pow.ba 1 Puff IH DAILY 07/11/17 Reported Tudorza Pressair (Aclidinium [place]) 400 Mcg Aer.pow.ba 400 Mcg IH DAILY 07/11/17 Reported Comments CXR 11/24 reviewed no focal infiltrates infiltrates Impression . 1. Fusoo-cy-dhmmsge hypercapnic respiratory failure secondary to acute exacerbation of chronic obstructive pulmonary disease.. Re-intubated 11/16, extubated 11/21 back on/ off BiPap now on VM 2. Shock, likely a combination of hypovolemic and septic shock. off levo, reso lved 3. Low-grade fever POA. Source could be in the lungs, although chest x-ray does not show definite consolidation , no further fever 4. Underlying severe chronic obstructive pulmonary disease with chronic hypercapnia. 5. Mild azotemia. 6. Haby-dk-tiyctypw protein-calorie malnutrition. 7. Moderate 8. Dysphagia Plan . 1. taper steroids, bronchodilators. prn benzo/ MS for air hunger 2. Deep venous thrombosis prophylaxis. 3. Nebs 4. elevate hob 5. d/w daughter Cora and patient in detail 11/29. Patient is fully awake and capable of making her own decisions. She clearly states that she does not want aggressive care. I offered hospice to help with her care at home. she agrees. she does not want tube feeds. wants to eat by herself. she has her own CPAP at home which she can use prn for dyspnea. d/w RN. Will make arrangement for home hospice. she will go with her daughter and live with her for short time XENA MCGRAW MD Nov 30, 2018 10:12
[2018-11-30 11:10] VITALS: BP 118/66
--- NOTE | 2018-11-30 11:13 | NUR ---
SS following up with discharge planning. [facility] contacted SS and reported that they would admit pt at 1600 today at daughters home, Cora [place], [address] [place] [address], . Discharge orders received. SS phoned and faxed discharge orders and order for BIPAP to [facility]. Pt will discharge today and go to daughters home with [facility] at 1545 via [facility] transport, . Pt, pt's daughter, and pt's RN notified.
--- NOTE | 2018-11-30 14:59 | PDOC ---
PROGRESS NOTES Assessment Problems Medical Problems: (1) Acute and chronic respiratory failure with hypercapnia Status: Acute (2) Acute hypercapnic respiratory failure Status: Acute (3) Aortic stenosis Status: Chronic (4) COPD with acute bronchitis Status: Chronic (5) Malnutrition Status: Chronic Posterior reversible encephalopathy syndrome (PRES), much better Anisocoria. Hallucination, visual. No brain metastatic disease Plan Patient is competent to make her health care decisions. Continue current medical management. Agree with discharge home today with hospice Subjective No complaints Objective Vital Signs Date Time Temp Pulse Resp B/P (MAP) Pulse Ox O2 Delivery O2 Flow Rate FiO2 11/30/18 11:10 98.5 81 20 118/66 (83) 99 Venturi Mask 98.5 11/30/18 11:03 12.0 Intake and Output 11/30/18 07:00 Intake Total 240 ml Output Total 1400 ml Balance -1160 ml Intake Oral 240 ml Output Urine Total 1400 ml PHYSICAL EXAM Alert. Oriented to time place, person, follows commands PERRL. EOMI. CN: Right pupil 1.5 mm, left 2-3 mm. Muscle tone: normal. Muscle strength: 4/5 DTR: 1+ Plantar reflex: silent Gait: not examined in bed. Sensory exam: no abnormal findings. No cerebellar signs elicited. Review of Relevant I have reviewed the following items heaven (where applicable) has been applied. Labs Microbiology 11/14/18 Blood Culture - Final, Complete NO GROWTH AFTER 5 DAYS 11/14/18 Urine Culture - Final, Complete 11/14/18 Urine Culture Result 1 (KRISTA) - Final, Complete Medications Current Medications Methylprednisolone Sodium Succinate (SOLU-Medrol 125MG VIAL) 125 mg 1X ONCE IV Last administered on 11/14/18at 17:14; Start 11/14/18 at 16:45; Stop 11/14/18 at 16:46; Status DC Albuterol/ Ipratropium (Duoneb) 3 ml 1X ONCE NEB Last administered on 11/14/18at 17:04; Start 11/14/18 at 16:45; Stop 11/14/18 at 16:46; Status DC Ondansetron HCl (Zofran) 4 mg 1X ONCE IV Last administered on 11/14/18at 17:13; Start 11/14/18 at 17:00; Stop 11/14/18 at 17:01; Status DC Propofol 0 ml @ As Directed STK-MED ONCE IV ; Start 11/14/18 at 18:09; Stop 11/14/18 at 18:10; Status DC Etomidate (Amidate) 20 mg STK-MED ONCE IV ; Start 11/14/18 at 18:17; Stop 11/14/18 at 18:18; Status DC Rocuronium Kyle (Zemuron) 50 mg STK-MED ONCE .ROUTE ; Start 11/14/18 at 18:17; Stop 11/14/18 at 18:18; Status DC Propofol 100 ml @ 0 mls/hr CONT PRN IV SEE PROTOCOL Last administered on 11/14/18at 18:00; Start 11/14/18 at 18:30; Stop 11/15/18 at 07:38; Status DC Chlorhexidine Gluconate (Peridex) 15 ml BID MM ; Start 11/14/18 at 21:00; Stop 11/15/18 at 16:12; Status DC Midazolam HCl 100 ml @ 0 mls/hr CONT PRN IV SEE PROTOCOL; Start 11/14/18 at 18:30; Stop 11/14/18 at 20:14; Status DC Cefepime HCl (Maxipime) 2 gm Q12HR IVP Last administered on 11/20/18at 20:52; Start 11/14/18 at 18:27; Stop 11/21/18 at 07:30; Status DC Azithromycin 250 ml @ 250 mls/hr 1X ONCE IV Last administered on 11/14/18at 22:56; Start 11/14/18 at 18:30; Stop 11/14/18 at 19:29; Status DC Vancomycin HCl (Vanco Per Pharmacy) 1 each PRN DAILY PRN MC SEE COMMENTS Last administered on 11/15/18at 10:17; Start 11/14/18 at 18:30; Stop 11/16/18 at 08:07; Status DC Propofol 50 ml @ 0 mls/hr 1X ONCE IV ; Start 11/14/18 at 18:30; Stop 11/14/18 at 18:31; Status DC Etomidate (Amidate) 20 mg 1X ONCE IV Last administered on 11/14/18at 18:11; Start 11/14/18 at 18:30; Stop 11/14/18 at 18:31; Status DC Rocuronium Kyle (Zemuron) 50 mg 1X ONCE IV Last administered on 11/14/18at 18:11; Start 11/14/18 at 18:30; Stop 11/14/18 at 18:31; Status DC Sodium Chloride 1,000 ml @ 1,000 mls/hr 1X ONCE IV Last administered on 11/14/18at 18:11; Start 11/14/18 at 18:30; Stop 11/14/18 at 19:29; Status DC Vancomycin HCl 1.75 gm/Sodium Chloride 500 ml @ 250 mls/hr 1X ONCE IV Last administered on 11/14/18at 21:00; Start 11/14/18 at 19:00; Stop 11/14/18 at 20:59; Status DC Midazolam HCl 100 ml @ 5 mls/hr CONT PRN IV SEE I/O RECORD Last administered on 11/15/18at 06:05; Start 11/14/18 at 20:30; Stop 11/16/18 at 12:47; Status DC Sodium Chloride 1,000 ml @ 1,000 mls/hr 1X ONCE IV Last administered on 11/14/18at 21:07; Start 11/14/18 at 21:00; Stop 11/14/18 at 21:59; Status DC Methylprednisolone Sodium Succinate (SOLU-Medrol 125MG VIAL) 125 mg Q12HR IV Last administered on 11/19/18at 08:54; Start 11/15/18 at 09:00; Stop 11/19/18 at 10:15; Status DC Albuterol/ Ipratropium (Duoneb) 3 ml Q4HRS NEB ; Start 11/15/18 at 00:00; Status Cancel Sodium Chloride 1,000 ml @ 75 mls/hr [id number] IV Last administered on 11/26/18at 01:00; Start 11/14/18 at 22:00; Stop 11/26/18 at 14:25; Status DC Sodium Chloride 1,000 ml @ 999 mls/hr 1X ONCE IV ; Start 11/14/18 at 20:45; Stop 11/14/18 at 21:45; Status UNV Albuterol/ Ipratropium (Duoneb) 3 ml RTQID NEB ; Start 11/15/18 at 08:00; Stop 11/15/18 at 08:00; Status DC Albuterol Sulfate (Ventolin Neb Soln) 2.5 mg PRN Q4HRS PRN NEB SHORTNESS OF BREATH Last administered on 11/26/18at 20:50; Start 11/14/18 at 20:45 Norepinephrine Bitartrate 250 ml @ 1.875 mls/ hr CONT PRN IV SEE I/O RECORD Last administered on 11/15/18at 02:33; Start 11/14/18 at 22:30; Stop 11/16/18 at 12:47; Status DC Sodium Chloride 1,000 ml @ 999 mls/hr 1X ONCE IV Last administered on 11/14/18at 22:55; Start 11/14/18 at 23:00; Stop 11/15/18 at 00:00; Status DC Albuterol/ Ipratropium (Duoneb) 3 ml Q4HRS NEB Last administered on 11/30/18at 11:00; Start 11/15/18 at 00:00 Vancomycin HCl 1 gm/Sodium Chloride 250 ml @ 250 mls/hr Q12H IV Last administered on 11/15/18at 09:53; Start 11/15/18 at 09:00; Stop 11/15/18 at 12:00; Status DC Vancomycin HCl (Vancomycin Trough Level) 1 each 1X ONCE MC ; Start 11/16/18 at 20:30; Stop 11/16/18 at 20:31; Status Cancel Fentanyl Citrate 30 ml @ 0 mls/hr CONT PRN IV SEE PROTOCOL Last administered on 11/16/18at 04:50; Start 11/15/18 at 07:45; Stop 11/16/18 at 12:47; Status DC Sodium Chloride 1,000 ml @ 1,000 mls/hr 1X ONCE IV Last administered on 11/15/18at 09:54; Start 11/15/18 at 09:15; Stop 11/15/18 at 10:14; Status DC Famotidine (Pepcid Vial) 20 mg BID IVP Last administered on 11/30/18 09:24; Start 11/15/18 at 10:00; Stop 11/30/18 at 12:00; Status DC Enoxaparin Sodium (Lovenox Per Pharmacy Prophylaxis Dosing) 1 each DAILY MC Last administered on 11/17/18 09:00; Start 11/16/18 at 09:00; Stop 11/21/18 at 13:17; Status DC Enoxaparin Sodium (Lovenox 40mg Syringe) 40 mg Q24H SQ Last administered on 11/29/18at 09:12; Start 11/15/18 at 10:00 Vancomycin HCl 1 gm/Sodium Chloride 250 ml @ 250 mls/hr Q18H IV Last administered on 11/16/18at 03:01; Start 11/16/18 at 03:00; Stop 11/16/18 at 08: 06; Status DC Lorazepam (Ativan Inj) 2 mg PRN Q4HRS PRN IV ANXIETY / AGITATION Last administered on 11/16/18at 15:28; Start 11/15/18 at 12:45; Stop 11/21/18 at 13:17; Status DC Propofol 100 ml @ 0 mls/hr CONT PRN IV SEE PROTOCOL Last administered on 11/06 05/27at 04:48; Start 11/15/18 at 16:15; Stop 11/16/18 at 12:47; Status DC Flumazenil (Romazicon) 0.1 mg 1X ONCE IV Last administered on 11/16/18at 16:46; Start 11/16/18 at 16:45; Stop 11/16/18 at 16:46; Status DC Flumazenil (Romazicon) 0.1 mg 1X ONCE IV Last administered on 11/16/18at 17:49; Start 11/16/18 at 17:45; Stop 11/16/18 at 17:49; Status DC Propofol 100 ml @ As Directed STK-MED ONCE IV ; Start 11/16/18 at 20:46; Stop 11/16/18 at 20:47; Status DC Propofol 100 ml @ 1.145 mls/ hr CONT PRN IV SEE I/O RECORD Last administered on 11/20/18at 08:17; Start 11/17/18 at 02:30; Stop 11/21/18 at 13:17; Status DC Fentanyl Citrate (Fentanyl 2ml Vial) 50 mcg PRN Q2HR PRN IV PAIN Last administered on 11/17/18at 02:41; Start 11/17/18 at 02:30; Stop 11/21/18 at 13:17; Status DC Fentanyl Citrate 30 ml @ 0 mls/hr CONT PRN IV SEE PROTOCOL Last administered on 11/20/18at 06:39; Start 11/17/18 at 07:15; Stop 11/21/18 at 13:17; Status DC Dextrose (Dextrose 50%-Water Syringe) 12.5 gm PRN Q15MIN PRN IV SEE COMMENTS; Start 11/17/18 at 11:30; Stop 11/21/18 at 13:17; Status DC Propofol (Diprivan) 200 mg STK-MED ONCE IV ; Start 11/16/18 at 12:00; Stop 11/17/18 at 15:00; Status DC Rocuronium Kyle (Zemuron) 50 mg STK-MED ONCE .ROUTE ; Start 11/16/18 at 12:00; Stop 11/17/18 at 15:00; Status DC Methylprednisolone Sodium Succinate (SOLU-Medrol 40MG VIAL) 40 mg Q12HR IV Last administered on 11/24/18at 08:48; Start 11/19/18 at 21:00; Stop 11/24/18 at 11:27; Status DC Piperacillin Sod/ Tazobactam Sod 3.375 gm/Sodium Chloride 50 ml @ 100 mls/hr Q6HRS IV Last administered on 11/23/18at 06:09; Start 11/21/18 at 08:00; Stop 11/23/18 at 07:23; Status DC Ondansetron HCl (Zofran) 4 mg PRN Q6HRS PRN IV NAUSEA/VOMITING Last administered on 11/21/18at 07:57; Start 11/21/18 at 08:00 Enoxaparin Sodium (Lovenox 40mg Syringe) 40 mg Q24H SQ ; Start 11/22/18 at 09:00; Status UNV Multivitamins (Thera M Plus) 1 tab DAILY PO ; Start 11/22/18 at 11:30 Prednisone (Prednisone) 30 mg DAILY PO ; Start 11/25/18 at 09:00; Stop 11/25/18 at 09:26; Status DC Aspirin (Children'S Aspirin) 162 mg DAILYWBKFT PO ; Start 11/24/18 at 18:00; Stop 11/27/18 at 07:42; Status DC Methylprednisolone Sodium Succinate (SOLU-Medrol 40MG VIAL) 40 mg DAILY IV Last administered on 11/30/18at 09:25; Start 11/25/18 at 09:30 Gadoterate Meglumine (Dotarem) 16 ml 1X ONCE IVP Last administered on 11/25/18at 11:00; Start 11/25/18 at 11:00; Stop 11/25/18 at 11:01; Status DC Morphine Sulfate (Morphine Sulfate) 2 mg PRN Q1HR PRN IV PAIN Last administered on 11/27/18at 10:41; Start 11/25/18 at 19:45 Lorazepam (Ativan Inj) 2 mg PRN Q2HR PRN IV SEVERE ANXIETY / AGITATION Last administered on 11/27/18at 09:17; Start 11/25/18 at 19:45 Lorazepam (Ativan Inj) 1 mg PRN Q4HRS PRN IV MODERATE ANXIETY / AGITATION Last administered on 11/27/18at 19:58; Start 11/26/18 at 21:30 Amino Acids/ Glycerin/ Electrolytes 1,000 ml @ 75 mls/hr [id number] IV Last administered on 11/29/18at 23:48; Start 11/26/18 at 22:30 Potassium Chloride/Water 100 ml @ 100 mls/hr Q1H IV Last administered on 11/28/18at 13:06; Start 11/28/18 at 09:00; Stop 11/28/18 at 10:59; Status DC Gadoterate Meglumine (Dotarem) 15.2 ml 1X ONCE IVP ; Start 11/28/18 at 13:45; Stop 11/28/18 at 13:46; Status DC Famotidine (Pepcid) 20 mg BID PO ; Start 11/30/18 at 21:00 Active Scripts Active Prednisone 50 Mg Tablet 50 Mg PO DAILY 10 Days Thera-M Tablet (Multivits,Ca,Minerals/Iron/Fa) 1 Each Tablet 1 Tab PO DAILY 30 Days Guaifenesin Dm Syrup (Guaifenesin/Dextromethorphan) 5 Ml Syrup 10 Ml PO PRN Q6HRS PRN MDD 1 7 Days Reported Fluoxetine Hcl 20 Mg Capsule 20 Mg PO DAILY Incruse Ellipta (Umeclidinium Kyle) 62.5 Mcg Blst.w.dev 62.5 Mcg IH DAILY Breo Ellipta 100-25 Mcg Inh (Fluticasone/Vilanterol) 1 Each Aer.pow.ba 1 Puff IH DAILY Tudorza Pressair (Aclidinium Kyle) 400 Mcg Aer.pow.ba 400 Mcg IH DAILY Vitals/I & O Vital Sign - Last 24 Hours 11/29/18 11/29/18 11/29/18 11/29/18 15:01 15:05 19:22 19:25 Temp 98.5 98.1 98.5 98.1 Pulse 74 74 Resp 20 20 B/P (MAP) 119/72 (88) 124/73 (90) Pulse Ox 97 99 97 98 O2 Delivery Venturi Mask Venturi Mask Venturi Mask Venturi Mask O2 Flow Rate 12.0 12.0 11/29/18 11/29/18 11/29/18 11/29/18 20:00 23:25 23:26 23:43 Temp 97.7 97.7 Pulse 68 Resp 20 B/P (MAP) 174/69 (104) Pulse Ox 95 98 O2 Delivery Venturi Mask Venturi Mask BiPAP/CPAP BiPAP/CPAP O2 Flow Rate 9.0 12.0 11/30/18 11/30/18 11/30/18 11/30/18 01:55 03:44 03:49 07:40 Temp 97.7 96.2 97.7 96.2 Pulse 68 81 Resp 20 22 B/P (MAP) 111/66 (81) 103/63 (76) Pulse Ox 96 98 O2 Delivery BiPAP/CPAP BiPAP/CPAP BiPAP/CPAP BiPAP/CPAP 11/30/18 11/30/18 11/30/18 11/30/18 08:00 08:13 11:03 11:10 Temp 98.5 98.5 Pulse 81 Resp 20 B/P (MAP) 118/66 (83) Pulse Ox 95 97 99 O2 Delivery Venturi Mask Venturi Mask Venturi Mask Venturi Mask O2 Flow Rate 9.0 12.0 12.0 Intake and Output 11/29/18 11/29/18 11/30/18 15:00 23:00 07:00 Intake Total 240 ml Output Total 1400 ml Balance -1160 ml AUREA MIKE MD Nov 30, 2018 14:59
[2018-11-30 15:00] VITALS: BP 107/62
--- NOTE | 2018-11-30 17:16 | NUR ---
Discharge Note: BENITO MARQUEZ [address] Discharge instructions and discharge home medications reviewed with Patient and a copy given. All questions have been answered and understanding verbalized. The following instructions and handouts were given: Diet, activity, medication list and follow up instructions provided to patients family and home hospice. Discontinued lines and drains: Peripheral IV discontinued with catheter intact. Patient discharged to Home with hospice with Ambulance Personnel via Stretcher
[2018-11-30] MEDS ORDERED: FAMOTIDINE 20 MG TABLET. PO SCH (21:00)
== END 2018-11-30 15:30 | disposition hospice, home (50) | DRG 870 ==
LOC: ER 16:07 → 1 WEST ICU 16:30 → 6 SOUTH 11-24 10:52 → 1 WEST ICU 11-24 14:33 → 5 NORTH 11-26 14:48 → 6 SOUTH 11-26 22:50
PROVIDERS: ADMIT Internal Medicine; ATTEND Internal Medicine
PROC: 5A1955Z Respiratory Ventilation, Greater than 96 Consecutive Hours (ICD-10-PCS; principal; 2018-11-14)
PROC: 0BH17EZ Insertion of Endotracheal Airway into Trachea, Via Natural or Artificial Opening (ICD-10-PCS; 2018-11-14)
PROC: 5A1945Z Respiratory Ventilation, 24-96 Consecutive Hours (ICD-10-PCS; 2018-11-14)
PROC: 0BH17EZ Insertion of Endotracheal Airway into Trachea, Via Natural or Artificial Opening (ICD-10-PCS; 2018-11-14)
PROC: 5A09357 Assistance with Respiratory Ventilation, Less than 24 Consecutive Hours, Continuous Positive Airway Pressure (ICD-10-PCS; 2018-11-22)
PROC: 5A09357 Assistance with Respiratory Ventilation, Less than 24 Consecutive Hours, Continuous Positive Airway Pressure (ICD-10-PCS; 2018-11-23)
PROC: 5A09357 Assistance with Respiratory Ventilation, Less than 24 Consecutive Hours, Continuous Positive Airway Pressure (ICD-10-PCS; 2018-11-27)
PROC: 5A09357 Assistance with Respiratory Ventilation, Less than 24 Consecutive Hours, Continuous Positive Airway Pressure (ICD-10-PCS; 2018-11-28)
PROC: 5A09357 Assistance with Respiratory Ventilation, Less than 24 Consecutive Hours, Continuous Positive Airway Pressure (ICD-10-PCS; 2018-11-29)
PROC: 5A09357 Assistance with Respiratory Ventilation, Less than 24 Consecutive Hours, Continuous Positive Airway Pressure (ICD-10-PCS; 2018-11-30)
DX: A41.9 Sepsis, unspecified organism (principal); J96.22 Acute and chronic respiratory failure with hypercapnia; J96.21 Acute and chronic respiratory failure with hypoxia; G93.41 Metabolic encephalopathy; R65.21 Severe sepsis with septic shock; E43 Unspecified severe protein-calorie malnutrition; I67.83 Posterior reversible encephalopathy syndrome; J44.0 Chronic obstructive pulmonary disease with (acute) lower respiratory infection; J44.1 Chronic obstructive pulmonary disease with (acute) exacerbation; J98.11 Atelectasis; N39.0 Urinary tract infection, site not specified; J20.9 Acute bronchitis, unspecified; D64.9 Anemia, unspecified; M19.90 Unspecified osteoarthritis, unspecified site; E66.9 Obesity, unspecified; E86.1 Hypovolemia; F17.200 Nicotine dependence, unspecified, uncomplicated; F22 Delusional disorders; F41.9 Anxiety disorder, unspecified; G47.33 Obstructive sleep apnea (adult) (pediatric); H57.02 Anisocoria; I35.0 Nonrheumatic aortic (valve) stenosis; I50.9 Heart failure, unspecified; R13.10 Dysphagia, unspecified; Z66 Do not resuscitate; Z80.3 Family history of malignant neoplasm of breast; Z82.49 Family history of ischemic heart disease and other diseases of the circulatory system; Z91.19 Patient's noncompliance with other medical treatment and regimen; Z68.28 Body mass index [BMI] 28.0-28.9, adult
CPT/HCPCS: 31500; 36415; 36600; 43762; 51701; 70551; 70553; 71045; 74018; 80048; 80053; 80061; 80069; 80307; 81001; 82140; 82805; 82962; 83605; 83735; 83880; 84145; 84484; 85007; 85025; 85610; 85651; 85730; 87040; 87086; 87641; 93005; 93308; 93320; 93325; 94002; 94003; 94640; 94660; 94760; 96374; 96375; A9575; G0480; J0456; J0692; J1650; J2060; J2250; J2270; J2405; J2543; J2704; J2920; J2930; J3010; J3370; J3480; J3490; J7030; J7040; J7050; J7613; J7620; 92526; 92610; 97530; 99285-25